=== PATIENT | female | born 1955 | race Caucasian/White ===

== ENCOUNTER → 2016-07-13 | Outpatient (CLI) | payer OTHER ==
--- NOTE | 2016-07-13 13:16 | CTL ---
EXAMINATION TYPE: CT Low Dose Lung DATE OF EXAM ORDERED: 07/13/2016 12:56 PM COMPARISON: None HISTORY: . Lung cancer screening CT DLP: [address] CTDI: 1.42 mGy Automated exposure control for dose reduction was used. SCREENING VISIT: COMPARISON: None TECHNIQUE: Low dose computed tomography scan was performed through the chest at 1 mm thick sections a nd reconstructed images in the coronal plane at [address] DIAGNOSTIC QUALITY: Satisfactory FINDINGS: LUNG NODULES: There are 2 nodules within the right lung. Both measure less than 3 mm. One within the anterior segment right upper lobe and the second within the right lower lobe. LUNGS: Diffuse emphysematous changes are seen. There is mild interlobular septal thickening suggestive of mi ld interstitial lung disease. Mild to moderate bronchiectasis seen. No pleural effusion or pneumothorax. Bilateral pleural-based thickening greater on the right which is stable from the previous CT scan of 12/30/2014. There is evidence of subsegmental linear consolidatio n which may been the basis of scar or chronic atelectasis. Right lower lobe subsegmental atelectasis or infiltrate noted. Abdominal evaluation is nondiagnostic due to artifact. However, a right-sided renal calculus suspecte d measuring 4 mm. The heart is enlarged. Coronary artery calcification noted. IMPRESSION: 1. There are 2 nodules noted both measuring less than 3 mm. Diffuse COPD and areas of chronic atelect asis or scar suspected with a more focal area of consolidation medial aspect right lower lobe correla te clinically for atelectasis versus pneumonia. Chronic pleural based thickening and scarring noted b ilaterally. FOLLOW UP CT CHEST RECOMMENDATION: Follow-up in [address] LUNG RAD: Lung-Rad 3 Probably Benign
== END | disposition home or self-care (01) ==
LOC: RADCTMAIN 12:23
PROVIDERS: ATTEND Nurse Practitioner Women's Health
DX: Z12.2 Encounter for screening for malignant neoplasm of respiratory organs (principal); R91.8 Other nonspecific abnormal finding of lung field; J44.9 Chronic obstructive pulmonary disease, unspecified; J92.9 Pleural plaque without asbestos; J98.4 Other disorders of lung; Z87.891 Personal history of nicotine dependence

== ENCOUNTER 2016-08-05 04:16 | Inpatient (IN) | payer OTHER ==
[2016-08-05] MEDS ORDERED: ALBUTEROL NEBULIZED 2.5 MG/3 ML INHALATION STA (04:36)
[2016-08-05] MEDS ORDERED: LORazepam 2 MG/ML SYRINGE IV STA (04:43)
[2016-08-05 04:55] LABS: Basophils # (A) 0.1 k/uL (0-0.2); Basophils % (A) 0 %; CH 28.8; CHCM 31.2; Eosinophils # (A) 0.3 k/uL (0-0.7); Eosinophils % (A) 2 %; HCT 42.2 % (34.0-46.0); HDW 2.56; HGB 13.1 gm/dL (11.4-16.0); Hypochromasia Slight; Luc # (Auto) 0.41; Luc % (Auto) 3; Lymphocytes # (A) 3.4 k/uL (1.0-4.8); Lymphocytes % (A) 24 %; MCH 28.7 pg (25.0-35.0); MCV 92.7 fL (80.0-100.0); Mean Platelet Volume 6.6; Monocytes # (A) 1.1 k/uL (0-1.0); Monocytes % (A) 8 %; Neutrophils # (A) 8.9 k/uL (1.3-7.7); Neutrophils % (A) 63 %; RBC 4.56 m/uL (3.80-5.40); RDW 14.7 % (11.5-15.5); WBC 14.2 k/uL (3.8-10.6)
--- NOTE | 2016-08-05 04:59 | XR ---
EXAM: XR Chest, 1 View. CLINICAL HISTORY: Reason: dyspnea TECHNIQUE: Frontal view of the chest. COMPARISON: 05/18/16 two-view chest. FINDINGS: Lungs: No consolidation. Pleural spaces: Mild reticular opacities at the periphery of the lung bases, and there may be minimal blunting of one or both costophrenic sulci that may represent trace amount of pleural fluid. Heart: Stable appearance of the cardiomediastinal silhouette. Mediastinum: See above. Bones: Stable. No acute fracture. IMPRESSION: Findings raise the possibility for very early CHF. This could be correlated clinically, and short term follow-up could be obtained to evaluate for clearing.
[2016-08-05 05:11] LABS: Partial Thromboplastin Time 26.8 sec (22.0-30.0); Prothrombin Time 10.4 sec (9.0-12.0)
[2016-08-05 05:17] LABS: Creatine Kinase 199 U/L (30-135)
[2016-08-05 05:19] LABS: ALT 57 U/L (9-52); AST 56 U/L (14-36); Alkaline Phosphatase 96 U/L (38-126); Anion Gap 12 mmol/L; Blood Urea Nitrogen 10 mg/dL (7-17); Calcium 8.5 mg/dL (8.4-10.2); Carbon Dioxide 20 mmol/L (22-30); Chloride 107 mmol/L (98-107); Glucose 127 mg/dL (74-99); Non-African American GFR(MDRD) >60 (>60 ml/min/1.73 sqM); Potassium 4.6 mmol/L (3.5-5.1); Sodium 139 mmol/L (137-145); Total Bilirubin 0.4 mg/dL (0.2-1.3); Total Protein 7.1 g/dL (6.3-8.2)
[2016-08-05 05:30] LABS: Troponin I <0.012 ng/mL (0.000-0.034)
[2016-08-05 05:40] LABS: Creatine Kinase MB 4.6 ng/mL (0.0-2.4)
[2016-08-05] MEDS ORDERED: NITROGLYCERIN OINT 1 INCH/GM PACKET TOPICAL STA (05:54)
[2016-08-05] MEDS ORDERED: FUROSEMIDE 10 MG/ML 4 ML VIAL IV STA (05:54)
--- NOTE | 2016-08-05 05:57 | ED ---
SOB HPI - General Chief Complaint: Shortness of Breath Stated Complaint: FESTUS Time Seen by Provider: 08/05/16 04:36 Source: patient, EMS Mode of arrival: EMS Limitations: physical limitation - History of Present Illness MD Complaint: shortness of breath, cough -: hour(s) Consistency: constant Improves With: nothing Worsens With: nothing Known History Of: COPD, congestive heart failure Associated Symptoms: denies other symptoms Treatments Prior to Arrival: oxygen, NIPPV - Related Data Home Medications Medication Instructions Recorded Confirmed ALPRAZolam [Xanax] 0.5 mg PO HS PRN 06/23/14 09/22/15 Albuterol Sulfate [Proair Hfa] 1 - 2 puff INHALATION Q6HR PRN 06/23/14 09/22/15 Ranitidine HCl 150 mg PO BID PRN 06/23/14 09/22/15 Gabapentin 400 mg PO BID 06/24/14 09/22/15 Hydrocodone/Acetaminophen 10 - 325 mg PO TID PRN 06/24/14 09/22/15 [Hydrocodone/Acetaminophen 10-325] Cyanocobalamin [Vitamin B-12] 4,000 mcg PO DAILY@1200 07/21/14 09/22/15 Multivitamins, Thera [Multivitamin] 1 each PO DAILY 07/21/14 09/22/15 Albuterol Nebulized [Ventolin 1 applic INHALATION QID 10/29/14 09/22/15 Nebulized] Alendronate Sodium [Fosamax] 70 mg PO WE 10/29/14 09/22/15 PARoxetine HCL 60 mg PO DAILY 10/29/14 09/22/15 Primidone [Mysoline] 50 mg PO BID 10/29/14 09/22/15 buPROPion SR [Wellbutrin SR] 150 mg PO DAILY 10/29/14 09/22/15 Furosemide 40 mg PO BID 12/23/14 09/22/15 Aspirin 81 mg PO DAILY 09/17/15 09/17/15 Black Cohosh 40 mg PO DAILY 09/17/15 09/22/15 Ditropan Xl (Unknown Dose) 1 tab PO DAILY 09/17/15 09/22/15 Spironolactone [Aldactone] 12.5 mg PO DAILY 09/17/15 09/22/15 Tiotropium [place] [Spiriva] 18 mcg INHALATION DAILY 09/17/15 09/22/15 Vitamin E 1,000 unit PO DAILY 09/17/15 09/17/15 Previous Rx's Medication Instructions Recorded Budesonide-Formot 160-4.5 Mcg 2 puff INHALATION RT-BID #1 inhaler 06/29/14 [Symbicort 160-4.5 Mcg Inhaler] Atorvastatin [Lipitor] 80 mg PO HS #30 tab 07/18/14 Clopidogrel [Plavix] 75 mg PO DAILY #30 tab 07/18/14 Nitroglycerin Sl Tabs [Nitrostat] 0.4 mg SUBLINGUAL Q5M PRN #25 tab 07/18/14 Allergies Allergy/AdvReac Type Severity Reaction Status Date / Time No Known Allergies Allergy Verified 08/05/16 04:17 Review of Systems ROS Statement: Those systems with pertinent positive or pertinent negative responses have been documented in the HPI. ROS Other: All systems not noted in ROS Statement are negative. Constitutional: Denies: fever, chills Respiratory: Reports: as per HPI, cough, dyspnea Cardiovascular: Denies: chest pain, palpitations, edema Gastrointestinal: Denies: abdominal pain, nausea, vomiting Genitourinary: Denies: dysuria, hematuria Musculoskeletal: Denies: back pain Skin: Denies: rash Neurological: Denies: headache Past Medical History Past Medical History: Coronary Artery Disease (CAD), Cancer, COPD, Hypertension , Myocardial Infarction ([place]) Additional Past Medical History / Comment(s): HX BREAST CA, O2 @2L HS Last Myocardial Infarction Date:: 2014 History of Any Multi-Drug Resistant Organisms: None Reported Past Surgical History: Section, Heart Catheterization With Stent, Orthopedic Surgery Additional Past Surgical History / Comment(s): CARDIAC STENTS X4, WRIST SX X3, D &C, 11-01-14 AORTAGRAM W/RUNOFF, CECILIO ILIAC STENTS Past Anesthesia/Blood Transfusion Reactions: No Reported Reaction Date of Last Stent Placement:: 2014 Past Psychological History: Depression Additional Psychological History / Comment(s): , lives in the family home with her . Used to live in the [place] area but moved here now about 7 years ago. No pets in the home at this point in time. She's an ongoingtobaccosmokerbut is decreased as of late. No history of injection drug use or other recreational drug use is related at this time. She has no experience. No international travel. Smoking Status: Former smoker Past Alcohol Use History: None Reported Additional Past Alcohol Use History / Comment(s): QUIT SMOKING 07/2015, STARTED SMOKING AT AGE 13 (1969) SMOKED UP TO 2PPD Past Drug Use History: None Reported - Past Family History Mother Family Medical History: Diabetes Mellitus Additional Family Medical History / Comment(s): HEART ISSSUES Father Additional Family Medical History / Comment(s): HEMACHROMATOSIS General Exam Limitations: physical limitation General appearance: alert, in distress Head exam: Present: atraumatic, normocephalic Eye exam: Present: normal appearance. Absent: scleral icterus, conjunctival injection ENT exam: Present: normal oropharynx Respiratory exam: Present: respiratory distress, rales. Absent: wheezes, rhonchi, stridor Cardiovascular Exam: Present: normal rhythm, tachycardia, gallop. Absent: systolic murmur, diastolic murmur, rubs GI/Abdominal exam: Present: soft. Absent: distended, tenderness, guarding, rebound, mass Extremities exam: Present: normal inspection, normal capillary refill. Absent: pedal edema, calf tenderness Back exam: Present: normal inspection. Absent: CVA tenderness (R), CVA tenderness (L) Neurological exam: Present: alert Skin exam: Present: warm, dry, intact, normal color. Absent: rash Course Vital Signs 08/05/16 08/05/16 08/05/16 04:17 04:22 04:51 Temperature 97.0 F L Pulse Rate 118 H 90 Respiratory 44 H 30 H Rate Blood Pressure 166/92 O2 Sat by Pulse 97 Oximetry 08/05/16 08/05/16 04:57 06:08 Temperature Pulse Rate 90 89 Respiratory 20 Rate Blood Pressure 131/79 O2 Sat by Pulse 98 Oximetry Medical Decision Making - Lab Data Result diagrams: 08/05/16 04:30 08/05/16 04:30 Lab Results 08/05/16 08/05/16 08/05/16 Range/Units 04:30 04:30 04:30 WBC 14.2 H (3.8-10.6) k/uL RBC 4.56 (3.80-5.40) m/uL Hgb 13.1 (11.4-16.0) gm/dL Hct 42.2 (34.0-46.0) % MCV 92.7 (80.0-100.0) fL MCH 28.7 (25.0-35.0) pg MCHC 31.0 (31.0-37.0) g/dL RDW 14.7 (11.5-15.5) % Plt Count 365 (150-450) k/uL Neutrophils % 63 % Lymphocytes % 24 % Monocytes % 8 % Eosinophils % 2 % Basophils % 0 % Neutrophils # 8.9 H (1.3-7.7) k/uL Lymphocytes # 3.4 (1.0-4.8) k/uL Monocytes # 1.1 H (0-1.0) k/uL Eosinophils # 0.3 (0-0.7) k/uL Basophils # 0.1 (0-0.2) k/uL Hypochromasia Slight PT (9.0-12.0) sec INR (<1.1) APTT (22.0-30.0) sec D-Dimer (<0.60) mg/L FEU Sodium 139 (137-145) mmol/L Potassium 4.6 (3.5-5.1) mmol/L Chloride 107 (98-107) mmol/L Carbon Dioxide 20 L (22-30) mmol/L Anion Gap 12 mmol/L BUN 10 (7-17) mg/dL Creatinine 0.60 (0.52-1.04) mg/dL Est GFR (MDRD) Af Amer >60 (>60 ml/min/1.73 sqM) Est GFR (MDRD) Non-Af >60 (>60 ml/min/1.73 sqM) Glucose 127 H (74-99) mg/dL Calcium 8.5 (8.4-10.2) mg/dL Total Bilirubin 0.4 (0.2-1.3) mg/dL AST 56 H (14-36) U/L ALT 57 H (9-52) U/L Alkaline Phosphatase 96 (38-126) U/L Total Creatine Kinase 199 H (30-135) U/L CK-MB (CK-2) 4.6 H* (0.0-2.4) ng/mL CK-MB (CK-2) Rel Index 2.3 Troponin I <0.012 (0.000-0.034) ng/mL Total Protein 7.1 (6.3-8.2) g/dL Albumin 4.1 (3.5-5.0) g/dL 08/05/16 Range/Units 04:30 WBC (3.8-10.6) k/uL RBC (3.80-5.40) m/uL Hgb (11.4-16.0) gm/dL Hct (34.0-46.0) % MCV (80.0-100.0) fL MCH (25.0-35.0) pg MCHC (31.0-37.0) g/dL RDW (11.5-15.5) % Plt Count (150-450) k/uL Neutrophils % % Lymphocytes % % Monocytes % % Eosinophils % % Basophils % % Neutrophils # (1.3-7.7) k/uL Lymphocytes # (1.0-4.8) k/uL Monocytes # (0-1.0) k/uL Eosinophils # (0-0.7) k/uL Basophils # (0-0.2) k/uL Hypochromasia PT 10.4 (9.0-12.0) sec INR 1.0 (<1.1) APTT 26.8 (22.0-30.0) sec D-Dimer 0.77 H (<0.60) mg/L FEU Sodium (137-145) mmol/L Potassium (3.5-5.1) mmol/L Chloride (98-107) mmol/L Carbon Dioxide (22-30) mmol/L Anion Gap mmol/L BUN (7-17) mg/dL Creatinine (0.52-1.04) mg/dL Est GFR (MDRD) Af Amer (>60 ml/min/1.73 sqM) Est GFR (MDRD) Non-Af (>60 ml/min/1.73 sqM) Glucose (74-99) mg/dL Calcium (8.4-10.2) mg/dL Total Bilirubin (0.2-1.3) mg/dL AST (14-36) U/L ALT (9-52) U/L Alkaline Phosphatase (38-126) U/L Total Creatine Kinase (30-135) U/L CK-MB (CK-2) (0.0-2.4) ng/mL CK-MB (CK-2) Rel Index Troponin I (0.000-0.034) ng/mL Total Protein (6.3-8.2) g/dL Albumin (3.5-5.0) g/dL - EKG Data -: EKG Interpreted by Me EKG shows normal: sinus rhythm (With PVC), intervals (Normal), QRS complexes ( Low voltage QRS), ST-T waves (Normal) Rate: tachycardia (Rate 112 bpm) Interpretation: other (Old anterolateral infarct) Disposition Clinical Impression: COPD (chronic obstructive pulmonary disease), Congestive heart failure Disposition: ADMITTED IP TO THIS [facility] Condition: Poor
[2016-08-05] MEDS ORDERED: ALPRAZolam 0.5 MG TAB PO PRN (06:13)
[2016-08-05] MEDS ORDERED: FAMOTIDINE 20 MG TAB PO PRN (06:13)
[2016-08-05 08:25] LABS: Appearance,Urine Clear (Clear); Bilirubin,Urine Negative (Negative); Glucose,Urine (UA) Negative (Negative); Ketones,Urine Negative (Negative); Leukocyte Esterase,Urine Negative (Negative); Nitrite,Urine Negative (Negative); PH, Urine 5.5 (5.0-8.0); Protein,Urine Trace (Negative); Specific Gravity,Urine 1.005 (1.001-1.035); UA Billing (MACRO vs. MICRO) CHEM; Urobilinogen,Urine <2.0 mg/dL (<2.0)
[2016-08-05] MEDS ORDERED: PRIMIDONE 50 MG TAB PO SCH (09:00)
[2016-08-05] MEDS: ALBUTEROL NEBULIZED 2.5 MG/3 ML INHALATION SCH ×4 (09:04→21:12)
[2016-08-05] MEDS: SYMBICORT 160-4.5 MCG INHALER INHALATION SCH ×2 (09:04→21:12)
[2016-08-05] MEDS: TIOTROPIUM 18 MCG/PUFF INHALER INHALATION SCH (09:07)
--- NOTE | 2016-08-05 09:48 | P.CRDCN ---
History of Present Illness Consult date: 08/05/16 Requesting physician: Duarte Figueredo Jr Consult reason: shortness of breath Chief complaint: Shortness of breath History of present illness: This is a 60-year-old female with known history of coronary artery disease, patient had prior stent placement to the RCA in 2014. Patient also has history of PAD with prior stenting of the right and left external iliac artery, hypertension, hyperlipidemia, nicotine dependence, ischemic cardiomyopathy, severe pulmonary hypertension, she presents to the hospital with symptoms of progressively worsening shortness of breath. Patient had recently been started on Elavil, she had taken for a couple of nights, states that last night her breathing became quite severe and for this reason she came to the emergency room for further evaluation. X-ray on admission revealed findings suspicious for early congestive heart failure. EKG shows a sinus tachycardia with occasional PVC. Lab data, WBC 14.2, hemoglobin 13.1, d-dimer 0.77, potassium 4.6, BUN 10, creatinine 0.6. AST 56, ALT 57, troponin 0.012, BNP level 3670. At the time of my examination this morning, patient is very sleepy, she does arouse but then goes immediately back to sleep while speaking to her. She does state that her breathing has improved since admission to the hospital, denies any chest pain. Past Medical History Past Medical History: Coronary Artery Disease (CAD), Cancer, COPD, GERD/Reflux, Hyperlipidemia, Hypertension, Myocardial Infarction ([place]), Pneumonia, Vascular Disorder Additional Past Medical History / Comment(s): Ischemic cardiomyopathy, celiac's disease, R BREAST CA with surgery/radiation, O2 @2L HS, chronic L wrist pain, osteoporosis in past-pt states no longer on medication for this, sinus problems. Last Myocardial Infarction Date:: 2014 History of Any Multi-Drug Resistant Organisms: None Reported Past Surgical History: Breast Surgery, Section, Heart Catheterization With Stent, Orthopedic Surgery Additional Past Surgical History / Comment(s): R breast lumpectomy, 2001 CARDIAC STENTS X4, 2014 PTCA, WRIST SX X3, D&C, 11-01-14 AORTAGRAM W/RUNOFF, CECILIO ILIAC STENTS Past Anesthesia/Blood Transfusion Reactions: No Reported Reaction Date of Last Stent Placement:: 2001 Past Psychological History: Anxiety, Depression Additional Psychological History / Comment(s): , lives in the family home with her . Used to live in the [place] area but moved here several years ago. No pets in the home at this point in time. She's an ongoing tobacco smoker. No history of injection drug use or other recreational drug use is related at this time. She has no experience. No international travel. Smoking Status: Current every day smoker Past Alcohol Use History: None Reported Additional Past Alcohol Use History / Comment(s): Pt started smoking in 1968 and was up to 2 ppd. She is now down to 15 cigarettes a day. Past Drug Use History: None Reported - Past Family History Mother Family Medical History: Diabetes Mellitus Additional Family Medical History / Comment(s): HEART ISSSUES Father Family Medical History: Blood Disorder Additional Family Medical History / Comment(s): HEMACHROMATOSIS Medications and Allergies Home Medications Medication Instructions Recorded Confirmed Type ALPRAZolam [Xanax] 0.5 mg PO HS PRN 06/23/14 08/05/16 History Gabapentin 400 mg PO BID 06/24/14 08/05/16 History Hydrocodone/Acetaminophen 1 tab PO TID PRN 06/24/14 08/05/16 History [Hydrocodone/Acetaminophen 10-325] Cyanocobalamin [Vitamin B-12] 4,000 mcg PO DAILY@1500 07/21/14 08/05/16 History Multivitamins, Thera [Multivitamin] 1 tab PO DAILY 07/21/14 08/05/16 History Albuterol Nebulized [Ventolin 2.5 mg INHALATION RT-QID 10/29/14 08/05/16 History Nebulized] Alendronate Sodium [Fosamax] 70 mg PO WE 10/29/14 08/05/16 History PARoxetine HCL 60 mg PO DAILY 10/29/14 08/05/16 History Primidone [Mysoline] 50 mg PO BID 10/29/14 08/05/16 History buPROPion SR [Wellbutrin SR] 150 mg PO DAILY 10/29/14 08/05/16 History Aspirin 81 mg PO Q48H 09/17/15 08/05/16 History Spironolactone [Aldactone] 12.5 mg PO DAILY 09/17/15 08/05/16 History Tiotropium [place] [Spiriva] 18 mcg INHALATION RT-DAILY 09/17/15 08/05/16 History Vitamin E 1,000 unit PO DAILY 09/17/15 08/05/16 History Amitriptyline HCl [Elavil] 25 mg PO HS 08/05/16 08/05/16 History Black Cohosh Root [Black Cohosh] 400 mg PO DAILY 08/05/16 08/05/16 History Clopidogrel [Plavix] 75 mg PO Q48H 08/05/16 08/05/16 History Furosemide [Lasix] 20 mg PO DAILY 08/05/16 08/05/16 History Glycopyrrolate/Formoterol Fum 1 puff INHALATION RT-BID 08/05/16 08/05/16 History [Bevespi Aerosphere Inhaler] Latanoprost Ophth [Xalatan 0.005%] 1 drops LEFT EYE HS 08/05/16 08/05/16 History Oxybutynin Xl [Ditropan Xl] 5 mg PO DAILY 08/05/16 08/05/16 History Ranitidine HCl [Zantac] 150 mg PO BID PRN 08/05/16 08/05/16 History Allergies Allergy/AdvReac Type Severity Reaction Status Date / Time No Known Allergies Allergy Verified 08/05/16 08:45 Physical Exam Vitals: Vital Signs Temp Pulse Pulse Resp BP BP Pulse Ox 08/05/16 09:18 94 08/05/16 09:05 96 08/05/16 08:10 97 F L 95 18 115/74 93 L 08/05/16 07:08 97.1 F L 93 20 132/74 93 L 08/05/16 06:08 89 20 131/79 98 PHYSICAL EXAMINATION: HEENT: Head is atraumatic, normocephalic. Pupils equal, round. Neck is supple. There is no elevated jugular venous pressure. HEART EXAMINATION: Heart S1, S2 normal. No murmur or gallop heard. CHEST EXAMINATION: Lungs reveal decreased air exchange throughout with scattered fine wheezes. ABDOMEN: Soft, nontender. Bowel sounds are heard. No organomegaly noted. EXTREMITIES: 1+ peripheral pulses with no evidence of peripheral edema and no calf tenderness noted. NEUROLOGIC [patient is very sleepy, arouses to verbal stimuli. Results 08/05/16 04:30 08/05/16 04:30 Current Medications Generic Name Dose Route Start Last Admin Trade Name Freq PRN Reason Stop Dose Admin Acetaminophen/Hydrocodone Bitart 1 each 08/05/16 06:13 [place] 10 PO TID PRN Pain Albuterol Sulfate 2.5 mg 08/05/16 08:00 08/05/16 09:04 Ventolin Nebulized INHALATION 2.5 mg RT-QID [facility] Administration Alprazolam 0.5 mg 08/05/16 06:13 Xanax PO HS PRN Anxiety Aspirin 81 mg 08/05/16 09:00 Aspirin PO DAILY [facility] Atorvastatin Calcium 80 mg 08/05/16 21:00 Lipitor PO HS AGUILA Budesonide/Formoterol Fumarate 2 puff 08/05/16 08:00 08/05/16 09:04 Symbicort 160-4.5 Mcg Inhaler INHALATION 2 puff RT-BID [facility] Administration Bupropion HCl 150 mg 08/05/16 09:00 Wellbutrin Sr PO DAILY [facility] Clopidogrel Bisulfate 75 mg 08/05/16 09:00 Plavix PO DAILY [facility] Famotidine 20 mg 08/05/16 06:13 Pepcid PO BID PRN Heartburn Furosemide 40 mg 08/05/16 18:00 Lasix IV Q12H [facility] Gabapentin 400 mg 08/05/16 09:00 Neurontin PO BID [facility] Paroxetine HCl 60 mg 08/05/16 09:00 Paxil PO DAILY [facility] Primidone 50 mg 08/05/16 09:00 Mysoline PO BID [facility] Sodium Chloride 10 ml 08/05/16 09:00 Saline Flush IV BID [facility] Spironolactone 12.5 mg 08/05/16 09:00 Aldactone PO DAILY [facility] Tiotropium [place] 1 puff 08/05/16 08:00 08/05/16 09:07 Spiriva INHALATION Not Given RT-DAILY [facility] EKG Interpretations (text) EKG shows a sinus tachycardia with occasional PVC. Assessment and Plan Plan: Assessment and plan #1 symptoms of shortness of breath, possible mild systolic congestive heart failure acute on chronic. Patient is currently on IV Lasix. BNP level 3670, this may be a baseline BNP for this patient. D-dimer 0.77 #2 ischemic cardiomyopathy, most recent echocardiogram with Doppler study was performed in July 2014 which revealed an ejection fraction of 30-35%. #3 pulmonary hypertension #4 COPD # 5 hyperlipidemia #6 hypertension #7 nicotine dependence #8 mild elevation in liver enzymes could be secondary to congestion #9 PAD with prior iliac stenting Plan We will repeat an echocardiogram with Doppler study. We will also request the most is a progress note from the office. Continue IV Lasix for 24 hours, check lytes BUN and creatinine. We will also obtain a CT of the chest to rule out pulmonary embolism. Further recommendations to follow. DNP note has been reviewed, I agree with a documented findings and plan of care. Patient was seen and examined.
[2016-08-05] MEDS ORDERED: RX INFO: IV CONTRAST WAS GIVEN 1 EACH MISC MISCELLANE PRN (09:49)
[2016-08-05 09:58] LABS: ABG Base Excess -0.3 mmol/L; ABG HCO3 23 mmol/L (21-25); ABG PCO2 35 mmHg (35-45); ABG PH 7.44 (7.35-7.45); ABG PO2 73 mmHg (83-108); ABG TCO2 25 mmol/L (19-24)
[2016-08-05] MEDS: CLOPIDOGREL 75 MG TAB PO SCH (10:49)
[2016-08-05] MEDS: buPROPion SR 150 MG TABLET.ER PO SCH (10:49)
[2016-08-05] MEDS: GABAPENTIN 400 MG CAP PO SCH ×2 (10:49→18:45)
[2016-08-05] MEDS: ASPIRIN 81 MG CHEW PO SCH (10:49)
[2016-08-05] MEDS: PARoxetine 20 MG TAB PO SCH (10:49)
[2016-08-05] MEDS: SPIRONOLACTONE 25 MG TAB PO SCH (10:50)
--- NOTE | 2016-08-05 11:23 | P.PN ---
Progress Note - Text This is an addendum to the dictated cardiology consultation. The patient has a known history of coronary artery disease, PND and ischemic cardiomyopathy. She presents with symptoms of dyspnea, fatigue and sleepiness. She was started recently on Ativan for insomnia. She has dyspnea on exertion but unfortunately continues to smoke. She denies any chest discomfort, dizziness or palpitations. She is a prior history of intermittent claudication but that improved after percutaneous revascularization. She has no PND orthopnea or peripheral edema. Her physical examination shows decrease air exchange but no wheezes, she is in sinus mechanism and there is no peripheral edema. Her NT proBNP is elevated but there is no overt signs of congestive heart failure at this time. The patient will receive intravenous diuretics, I will obtain an echocardiogram with Doppler and evaluate the possibility of pulmonary embolism in view of the elevation of her d-dimer and her dyspnea. Depending on her progress further recommendations will be made. Thank you for this consult we will follow with you.
[2016-08-05] MEDS: HYDROcodone/APAP 10-325MG 1 EACH TAB PO PRN ×2 (12:04→18:45)
--- NOTE | 2016-08-05 12:09 | CT ---
EXAMINATION TYPE: CT angio chest DATE OF EXAM: 08/05/2016 11:48 AM COMPARISON: Previous study dated 09/01/2015 and a low-dose CT scan of the lung dated 07/13/2016. HISTORY: CHF EXACERBATION CT DLP: 330 mGycm Automated exposure control for dose reduction was used. CONTRAST: CTA scan of the thorax is performed with IV Contrast, patient injected with 100 ML mL of Omnipaque 35 0, pulmonary embolism protocol. . FINDINGS: There are diffuse emphysematous changes throughout the lungs. There is chronic atelectatic change in the right middle lobe. There is also some chronic atelectasis in the posterior basal segmen t of the right lower lobe. No definite pulmonary nodules are seen on today's examination. There is so me scarring in the left lingula. There is no significant axillary, mediastinal, internal mammary or hilar adenopathy. There is no pleu ral or pericardial fluid. The heart is upper limits of normal in size. The root of the aorta is dilated measuring 3.8 cm. The remainder the thoracic aorta is normal in bobby thomas. There is no evidence of dissection. There is no evidence of pulmonary embolus. There is increased soft tissue in the subcarinal location. I could not exclude adenopathy in this loc ation. This was present as far back as 2014. There is a stable, 7.7 mm hypoattenuating lesion in the posterior segment of the right lobe of the li madalyn. This may represent a small hemangioma. Visualized portions of the upper abdomen are otherwise un remarkable. No osseous lesion is seen. IMPRESSION: 1. THIS EXAMINATION IS NEGATIVE FOR PULMONARY EMBOLUS. 2. DIFFUSE EMPHYSEMATOUS CHANGE. 3. CHRONIC ATELECTASIS DESCRIBED. 4. INCREASED SOFT TISSUE IN THE SUBCARINAL REGION WHICH IS STABLE BACK TO 2014. IT WOULD BE DIFFICULT TO EXCLUDE ADENOPATHY IN THIS LOCATION. 5. MILD ANEURYSMAL DILATATION OF THE ROOT OF THE AORTA. 6. STABLE 7.7 MM LESION WITHIN THE DOME OF THE LIVER. THIS MAY REPRESENT A SMALL HEMANGIOMA. THIS CAN BE CONFIRMED WITH ULTRASOUND OR A DEDICATED CT SCAN OF THE ABDOMEN.
[2016-08-05 13:08] LABS: Troponin I <0.012 ng/mL (0.000-0.034)
[2016-08-05 13:13] LABS: Creatine Kinase MB 4.4 ng/mL (0.0-2.4)
--- NOTE | 2016-08-05 13:55 | P.CNPUL ---
History of Present Illness Consult date: 08/05/16 Reason for consult: dyspnea, COPD History of present illness: 60-year-old female patient with known history of advanced oxygen-dependent COPD , maintained on a combination of Spiriva and Symbicort and oxygen on outpatient basis, along with known history of coronary artery disease with previous PCI and stenting of the RCA in 2015, congestion heart failure and peripheral vascular disease along with hypertension and hyperlipidemia and she is also known to have significant degree of secondary pulmonary hypertension based on a previous echocardiogram. The patient is a chronic smoker and smokes around half to one pack of cigarettes on a daily basis. Over the past week or so the patient has been expressing progressive increased shortness of breath. She had dyspnea cough chest tightness and wheezing typically of COPD exacerbation. No orthopnea. No chest pain. No pleurisy. No hemoptysis. No swelling in the lower extremities. The patient was quite short of breath and yesterday she woke up and she got to point where she was unable to speak up. This is. At that point she came into the hospital for further evaluation and management. Note that her d-dimer was negative. Her troponin was at 0.012 and the proBNP level was at 3670. She is clinically feeling better as the patient was injected with a combination of bronchodilators and steroids. Chest x-ray shows no evidence of an acute pneumonia. There may be some early signs of heart failure. There is no massive pulmonary edema or pleural effusions. Review of Systems For review of system was done and the positive findings are almost above in history of present illness Past Medical History Past Medical History: Coronary Artery Disease (CAD), Cancer, COPD, GERD/Reflux, Hyperlipidemia, Hypertension, Myocardial Infarction ([place]), Pneumonia, Vascular Disorder Additional Past Medical History / Comment(s): COPD, chronic hypoxic respiratory failure, coronary artery disease with previous coronary intervention and PCI and stenting of RCA, CHF with significant degree of secondary pulmonary hypertension, ischemic cardiac myopathy, celiac disease, breast cancer involving the right breast with previous lumpectomy followed by radiation therapy, osteoporosis, hypertension, hyperlipidemia, peripheral vascular disease Last Myocardial Infarction Date:: 2014 History of Any Multi-Drug Resistant Organisms: None Reported Past Surgical History: Breast Surgery, Section, Heart Catheterization With Stent, Orthopedic Surgery Additional Past Surgical History / Comment(s): R breast lumpectomy, 2002 CARDIAC STENTS X4, 2015 PTCA, WRIST SX X3, D&C, 11-01-14 AORTAGRAM W/RUNOFF, CECILIO ILIAC STENTS Past Anesthesia/Blood Transfusion Reactions: No Reported Reaction Date of Last Stent Placement:: 2001 Past Psychological History: Anxiety, Depression Additional Psychological History / Comment(s): , lives in the family home with her . Used to live in the [place] area but moved here several years ago. No pets in the home at this point in time. She's an ongoing tobacco smoker. No history of injection drug use or other recreational drug use is related at this time. She has no experience. No international travel. Smoking Status: Current every day smoker Past Alcohol Use History: None Reported Additional Past Alcohol Use History / Comment(s): Pt started smoking in 1968 and was up to 2 ppd. She is now down to 15 cigarettes a day. Past Drug Use History: None Reported - Past Family History Mother Family Medical History: Diabetes Mellitus Additional Family Medical History / Comment(s): HEART ISSSUES Father Family Medical History: Blood Disorder Additional Family Medical History / Comment(s): HEMACHROMATOSIS Medications and Allergies Home Medications Medication Instructions Recorded Confirmed Type ALPRAZolam [Xanax] 0.5 mg PO HS PRN 06/23/14 08/05/16 History Gabapentin 400 mg PO BID 06/24/14 08/05/16 History Hydrocodone/Acetaminophen 1 tab PO TID PRN 06/24/14 08/05/16 History [Hydrocodone/Acetaminophen 10-325] Cyanocobalamin [Vitamin B-12] 4,000 mcg PO DAILY@1500 07/21/14 08/05/16 History Multivitamins, Thera [Multivitamin] 1 tab PO DAILY 07/21/14 08/05/16 History Albuterol Nebulized [Ventolin 2.5 mg INHALATION RT-QID 10/29/14 08/05/16 History Nebulized] Alendronate Sodium [Fosamax] 70 mg PO WE 10/29/14 08/05/16 History PARoxetine HCL 60 mg PO DAILY 10/29/14 08/05/16 History Primidone [Mysoline] 50 mg PO BID 10/29/14 08/05/16 History buPROPion SR [Wellbutrin SR] 150 mg PO DAILY 10/29/14 08/05/16 History Aspirin 81 mg PO Q48H 09/17/15 08/05/16 History Spironolactone [Aldactone] 12.5 mg PO DAILY 09/17/15 08/05/16 History Tiotropium [place] [Spiriva] 18 mcg INHALATION RT-DAILY 09/17/15 08/05/16 History Vitamin E 1,000 unit PO DAILY 09/17/15 08/05/16 History Amitriptyline HCl [Elavil] 25 mg PO HS 08/05/16 08/05/16 History Black Cohosh Root [Black Cohosh] 400 mg PO DAILY 08/05/16 08/05/16 History Clopidogrel [Plavix] 75 mg PO Q48H 08/05/16 08/05/16 History Furosemide [Lasix] 20 mg PO DAILY 08/05/16 08/05/16 History Glycopyrrolate/Formoterol Fum 1 puff INHALATION RT-BID 08/05/16 08/05/16 History [Bevespi Aerosphere Inhaler] Latanoprost Ophth [Xalatan 0.005%] 1 drops LEFT EYE HS 08/05/16 08/05/16 History Oxybutynin Xl [Ditropan Xl] 5 mg PO DAILY 08/05/16 08/05/16 History Ranitidine HCl [Zantac] 150 mg PO BID PRN 08/05/16 08/05/16 History Allergies Allergy/AdvReac Type Severity Reaction Status Date / Time No Known Allergies Allergy Verified 08/05/16 08:45 Physical Exam Vitals: Vital Signs Temp Pulse Pulse Resp BP BP Pulse Ox 08/05/16 12:04 92 16 112/73 97 08/05/16 11:57 92 08/05/16 11:53 92 08/05/16 09:18 94 08/05/16 09:05 96 08/05/16 08:10 97 F L 95 18 115/74 93 L 08/05/16 07:08 97.1 F L 93 20 132/74 93 L 08/05/16 06:08 89 20 131/79 98 Intake and Output 08/04/16 08/05/16 08/05/16 22:59 06:59 14:59 Intake Total 200 Balance 200 Intake: Oral 200 Thin and frail, and mild degree of respiratory distress, able to speak of. This is and she is not using it and was not breathing.Head exam was generally normal. There was no scleral icterus or corneal arcus. Mucous membranes were moist.Neck was supple and without jugular venous distension, thyromegaly, or carotid bruits. Carotids were easily palpable bilaterally. There was no adenopathy. Lung sounds are diminished and there is prolongation of the expiratory phase of breathing and scattered expiratory wheezes throughout the lung hastings bilaterally.Cardiac exam revealed the PMI to be normally situated and sized. The rhythm was regular and no extrasystoles were noted during several minutes of auscultation. The first and second heart sounds were normal and physiologic splitting of the second heart sound was noted. There were no murmurs, rubs, clicks, or gallops.Abdominal exam revealed normal bowel sounds. The abdomen was soft, non-tender, and without masses, organomegaly, or appreciable enlargement of the abdominal aorta.Examination of the extremities revealed easily palpable radial, femoral and pedal pulses. There was no cyanosis , clubbing or edema. Results - Laboratory Findings CBC and BMP: 08/05/16 04:30 08/05/16 04:30 ABG ABG pH 7.44 (7.35-7.45) 08/05/16 09:53 ABG pCO2 35 mmHg (35-45) 08/05/16 09:53 ABG pO2 73 mmHg (83-108) L 08/05/16 09:53 ABG O2 Saturation 95.0 % (94-97) 08/05/16 09:53 PT/INR, D-dimer PT 10.4 sec (9.0-12.0) 08/05/16 04:30 INR 1.0 (<1.1) 08/05/16 04:30 D-Dimer 0.77 mg/L FEU (<0.60) H 08/05/16 04:30 Abnormal lab findings: Abnormal Labs 08/05/16 08/05/16 08/05/16 06:47 09:53 11:43 ABG pO2 73 L ABG Total CO2 25 H CK-MB (CK-2) 4.4 H* Urine Protein Trace H - Diagnostic Findings Chest x-ray: image reviewed Assessment and Plan Plan: Assessment 1 acute COPD exacerbation. No evidence of any pneumonia. Nicotine addiction/ smoking and seems to be on the main risk factors for her recurrent COPD exacerbation. Clinically the patient is improving with the current treatment. 2 CHF with impaired LV function and severe pulmonary hypertension 3 coronary artery disease with previous PCI and coronary intervention and stenting 4 hypertension 5 peripheral vascular disease 6 breast cancer with a previous lumpectomy of the right breast followed by radiation therapy 7 chronic hypoxic respiratory failure maintained on oxygen 2 L/m visit cannula 8 osteoporosis 9 hyperlipidemia 10 smoking Plan Smoking cessation counseling was done. The patient will be placed on a combination of DuoNeb nonetheless she was around the clock, IV Solu-Medrol, restart the patient on a combination of Symbicort and Spiriva. IV Lasix 40 mg every 12 hours for the next 24 hours. Cardiology evaluation. We'll continue to follow and make further recommendations based on her progress.
[2016-08-05 15:06] VITALS: BMI 19.7
--- NOTE | 2016-08-05 15:10 | P.HPIM ---
History of Present Illness H&P Date: 08/05/16 Chief Complaint: Shortness of breath, cough Patient is a 60-year-old female, patient of Dr. Figueredo in the outpatient setting with medical history significant for COPD, systolic congestive heart failure, ischemic cardiomyopathy and LV dysfunction, chronic hypercapnic respiratory failure with home O2, chronic microcytic anemia, coronary artery disease, myocardial infarction with stent placements, hypertension, breast cancer, severe pulmonary hypertension, and ongoing nicotine dependence. Patient presented to the emergency department with complaints of shortness of breath and cough. Patient is lethargic and a poor historian and most of information is taken from chart. Chest x-ray on admission with evidence of possible early CHF without any consolidation. CTA angiogram negative for pulmonary embolism. Incidental finding of stable 7.7 mm lesion within dome of liver possible small hemangioma. The emergency department , patient had evidence of acute respiratory failure and was placed on CPAP. Patient was transferred to the selective care unit with consult to cardiology and pulmonology service. Upon examination, patient is quite lethargic and falls asleep during conversation. Patient reports improvement in breathing, denies chest pain. Past Medical History Past Medical History: Coronary Artery Disease (CAD), Cancer, COPD, GERD/Reflux, Hyperlipidemia, Hypertension, Myocardial Infarction ([place]), Pneumonia, Vascular Disorder Additional Past Medical History / Comment(s): COPD, chronic hypoxic respiratory failure, coronary artery disease with previous coronary intervention and PCI and stenting of RCA, CHF with significant degree of secondary pulmonary hypertension, ischemic cardiac myopathy, celiac disease, breast cancer involving the right breast with previous lumpectomy followed by radiation therapy, osteoporosis, hypertension, hyperlipidemia, peripheral vascular disease Last Myocardial Infarction Date:: 2014 History of Any Multi-Drug Resistant Organisms: None Reported Past Surgical History: Breast Surgery, Section, Heart Catheterization With Stent, Orthopedic Surgery Additional Past Surgical History / Comment(s): R breast lumpectomy, 2001 CARDIAC STENTS X4, 2015 PTCA, WRIST SX X3, D&C, 11-01-14 AORTAGRAM W/RUNOFF, CECILIO ILIAC STENTS Past Anesthesia/Blood Transfusion Reactions: No Reported Reaction Date of Last Stent Placement:: 2001 Past Psychological History: Anxiety, Depression Additional Psychological History / Comment(s): , lives in the family home with her . Used to live in the [place] area but moved here several years ago. No pets in the home at this point in time. She's an ongoing tobacco smoker. No history of injection drug use or other recreational drug use is related at this time. She has no experience. No international travel. Smoking Status: Current every day smoker Past Alcohol Use History: None Reported Additional Past Alcohol Use History / Comment(s): Pt started smoking in 1968 and was up to 2 ppd. She is now down to 15 cigarettes a day. Past Drug Use History: None Reported - Past Family History Mother Family Medical History: Diabetes Mellitus Additional Family Medical History / Comment(s): HEART ISSSUES Father Family Medical History: Blood Disorder Additional Family Medical History / Comment(s): HEMACHROMATOSIS Medications and Allergies Home Medications Medication Instructions Recorded Confirmed Type ALPRAZolam [Xanax] 0.5 mg PO HS PRN 06/23/14 08/05/16 History Gabapentin 400 mg PO BID 06/24/14 08/05/16 History Hydrocodone/Acetaminophen 1 tab PO TID PRN 06/24/14 08/05/16 History [Hydrocodone/Acetaminophen 10-325] Cyanocobalamin [Vitamin B-12] 4,000 mcg PO DAILY@1500 07/21/14 08/05/16 History Multivitamins, Thera [Multivitamin] 1 tab PO DAILY 07/21/14 08/05/16 History Albuterol Nebulized [Ventolin 2.5 mg INHALATION RT-QID 10/29/14 08/05/16 History Nebulized] Alendronate Sodium [Fosamax] 70 mg PO WE 10/29/14 08/05/16 History PARoxetine HCL 60 mg PO DAILY 10/29/14 08/05/16 History Primidone [Mysoline] 50 mg PO BID 10/29/14 08/05/16 History buPROPion SR [Wellbutrin SR] 150 mg PO DAILY 10/29/14 08/05/16 History Aspirin 81 mg PO Q48H 09/17/15 08/05/16 History Spironolactone [Aldactone] 12.5 mg PO DAILY 09/17/15 08/05/16 History Tiotropium [place] [Spiriva] 18 mcg INHALATION RT-DAILY 09/17/15 08/05/16 History Vitamin E 1,000 unit PO DAILY 09/17/15 08/05/16 History Amitriptyline HCl [Elavil] 25 mg PO HS 08/05/16 08/05/16 History Black Cohosh Root [Black Cohosh] 400 mg PO DAILY 08/05/16 08/05/16 History Clopidogrel [Plavix] 75 mg PO Q48H 08/05/16 08/05/16 History Furosemide [Lasix] 20 mg PO DAILY 08/05/16 08/05/16 History Glycopyrrolate/Formoterol Fum 1 puff INHALATION RT-BID 08/05/16 08/05/16 History [Bevespi Aerosphere Inhaler] Latanoprost Ophth [Xalatan 0.005%] 1 drops LEFT EYE HS 08/05/16 08/05/16 History Oxybutynin Xl [Ditropan Xl] 5 mg PO DAILY 08/05/16 08/05/16 History Ranitidine HCl [Zantac] 150 mg PO BID PRN 08/05/16 08/05/16 History Allergies Allergy/AdvReac Type Severity Reaction Status Date / Time No Known Allergies Allergy Verified 08/05/16 08:45 Physical Exam Vitals: Vital Signs Temp Pulse Pulse Resp BP BP Pulse Ox 08/05/16 12:04 92 16 112/73 97 08/05/16 11:57 92 08/05/16 11:53 92 08/05/16 09:18 94 08/05/16 09:05 96 08/05/16 08:10 97 F L 95 18 115/74 93 L 08/05/16 07:08 97.1 F L 93 20 132/74 93 L 08/05/16 06:08 89 20 131/79 98 Intake and Output 08/04/16 08/05/16 08/05/16 22:59 06:59 14:59 Intake Total 200 Balance 200 Intake: Oral 200 GENERAL: Pt lethargic, arousable to verbal stimuli but drifts off to sleep when not stimulated, appears in no acute distress. HEAD: Atraumatic, normocephalic. EYES: Pupils equal and round. Sclera anicteric, conjunctiva are normal. ENT: Moist mucous membranes. NECK:Supple without lymphadenopathy or JVD. LUNGS: Breath sounds diminished with faint expiratory wheezes. HEART: Heart S1, S2, no S3 or S4. Regular rate and rhythm. No murmurs, rubs or gallops. ABDOMEN: Soft, nontender, nondistended, normoactive bowel sounds. EXTREMITIES: 1+ peripheral pulses. No edema. No calf tenderness. NEUROLOGICAL: Pt lethargic, arouses to verbal stimuli. PSYCH: Calm. SKIN: Warm, dry, intact. Results CBC & Chem 7: 08/05/16 04:30 08/05/16 04:30 Labs: Abnormal Lab Results - Last 24 Hours (Table) 08/05/16 08/05/16 08/05/16 Range/Units 06:47 09:53 11:43 ABG pO2 73 L (83-108) mmHg ABG Total CO2 25 H (19-24) mmol/L CK-MB (CK-2) 4.4 H* (0.0-2.4) ng/mL Urine Protein Trace H (Negative) Chest x-ray: report reviewed CT scan - chest: report reviewed Thrombosis Risk Factor Assmnt - DVT/VTE Prophylaxis DVT/VTE Prophylaxis: Pharmacologic Prophylaxis ordered, Mechanical Prophylaxis ordered - Choose All That Apply Any of the Below Risk Factors Present?: Yes Each Factor Represents 1 point: Abnormal pulmonary function (COPD), Heart failure (<1month) Other Risk Factors: Yes Each Risk Factor Represents 2 Points: Age 61-74 years, Malignancy Other congenital or acquired thrombophilia - If yes, enter type in comment: No Thrombosis Risk Factor Assessment Total Risk Factor Score: 6 Thrombosis Risk Factor Assessment Level: High Risk Assessment and Plan Plan: Impression: 1. Acute respiratory failure, present on admission, suspect secondary to possible acute congestive heart failure and exacerbation of COPD. Cardiology and pulmonology is following. Continue supplemental oxygen, nebulized updraft treatments, Pulmicort, and Spiriva 2. Acute metabolic encephalopathy, possible toxic from IV Ativan. Continue to monitor patient. Will hold Elavil. 3. Coronary artery disease with previous stent placements. Continue aspirin and Plavix. 4. GERD. Continue Pepcid. 5. Hyperlipidemia. Continue Lipitor. 6. Hypertension. 7. Peripheral vascular disease. 8. Chronic hypoxic respiratory failure, patient on 2 L of oxygen around the clock at home. 9. Severe pulmonary hypertension. 10. Chronic systolic heart failure. Continue Lasix. 11. History of right breast cancer with previous lobectomy followed by radiation therapy. 12. Osteoporosis. Resume Fosamax in the outpatient setting. 13. Anxiety and depression. Continue Wellbutrin and Paxil. 14. Nicotine dependence. Smoking cessation encouraged. 15. History of peripheral arterial disease with prior stenting of the right and left external iliac artery. 16. Chronic pain syndrome. Continue [place] 10. 17. Anemia of chronic disease. Continue vitamin B12. 18. Left eye glaucoma. Continue eyedrops. 19. DVT prophylaxis. Continue heparin subcu. 20. GI prophylaxis. Continue Pepcid. 21. Repeat CBC and BMP in a.m. The above impression and plan have been discussed and directed by Dr. Figueredo. Vel SIMON acting as scribe for Dr. Figueredo.
[2016-08-05] MEDS ORDERED: VARENICLINE 0.5 MG TAB PO SCH (16:00)
[2016-08-05] MEDS: PRIMIDONE 50 MG TAB PO SCH (16:07)
[2016-08-05] MEDS: CYANOCOBALAMIN 500 MCG TAB PO SCH (16:08)
[2016-08-05] MEDS: METOPROLOL SUCCINATE (ER) 25 MG TAB.ER.24H PO SCH (16:09)
[2016-08-05 17:23] LABS: Troponin I <0.012 ng/mL (0.000-0.034)
[2016-08-05 17:26] LABS: Creatine Kinase MB 3.7 ng/mL (0.0-2.4)
[2016-08-05] MEDS: FUROSEMIDE 10 MG/ML 4 ML VIAL IV SCH (18:45)
[2016-08-05] MEDS: FAMOTIDINE 20 MG TAB PO SCH (20:32)
[2016-08-05] MEDS: HEPARIN SODIUM,PORCINE 5,000 UNIT/ML 1 ML VIAL SQ SCH (20:35)
[2016-08-05] MEDS ORDERED: AMITRIPTYLINE HCL 25 MG TAB PO SCH (21:00)
[2016-08-05] MEDS ORDERED: ATORVASTATIN 80 MG TAB PO SCH (21:00)
[2016-08-05] MEDS ORDERED: LATANOPROST 0.005% OPHTH DROPS 2.5 ML BTL LEFT EYE SCH (21:00)
[2016-08-06] MEDS: HYDROcodone/APAP 10-325MG 1 EACH TAB PO PRN ×2 (04:06→13:31)
[2016-08-06] MEDS: FUROSEMIDE 10 MG/ML 4 ML VIAL IV SCH (05:25)
[2016-08-06] MEDS: PRIMIDONE 50 MG TAB PO SCH ×2 (05:29→16:07)
[2016-08-06] MEDS ORDERED: ASPIRIN 325 MG TAB PO SCH (06:07)
[2016-08-06 06:55] LABS: Basophils % (A) 0 %; CH 29.2; CHCM 32.6; Eosinophils # (A) 0.2 k/uL (0-0.7); Eosinophils % (A) 2 %; HCT 36.2 % (34.0-46.0); HDW 2.69; HGB 11.9 gm/dL (11.4-16.0); Luc # (Auto) 0.32; Luc % (Auto) 3; Lymphocytes # (A) 2.3 k/uL (1.0-4.8); Lymphocytes % (A) 18 %; MCH 29.7 pg (25.0-35.0); MCHC 32.9 g/dL (31.0-37.0); MCV 90.2 fL (80.0-100.0); Mean Platelet Volume 7.4; Monocytes # (A) 0.9 k/uL (0-1.0); Monocytes % (A) 7 %; Neutrophils # (A) 8.8 k/uL (1.3-7.7); Neutrophils % (A) 70 %; RBC 4.01 m/uL (3.80-5.40); RDW 14.8 % (11.5-15.5); WBC 12.5 k/uL (3.8-10.6); WBC (Perox) 13.66
[2016-08-06 07:07] LABS: Anion Gap 11 mmol/L; Blood Urea Nitrogen 16 mg/dL (7-17); Calcium 9.1 mg/dL (8.4-10.2); Carbon Dioxide 28 mmol/L (22-30); Chloride 99 mmol/L (98-107); Glucose 110 mg/dL (74-99); Non-African American GFR(MDRD) >60 (>60 ml/min/1.73 sqM); Potassium 3.7 mmol/L (3.5-5.1); Sodium 138 mmol/L (137-145)
[2016-08-06] MEDS: SYMBICORT 160-4.5 MCG INHALER INHALATION SCH (08:26)
[2016-08-06] MEDS: ALBUTEROL NEBULIZED 2.5 MG/3 ML INHALATION SCH ×3 (08:26→15:10)
[2016-08-06] MEDS ORDERED: VITAMIN E (DL,TOCOPHERYL ACET) 400 UNIT CAP PO SCH (09:00)
[2016-08-06] MEDS ORDERED: OXYBUTYNIN XL 5 MG TAB.ER.24 PO SCH (09:00)
[2016-08-06 09:07] VITALS: TEMP 97.4
[2016-08-06] MEDS: buPROPion SR 150 MG TABLET.ER PO SCH (10:14)
[2016-08-06] MEDS: ASPIRIN 81 MG CHEW PO SCH (10:14)
[2016-08-06] MEDS: PARoxetine 20 MG TAB PO SCH (10:14)
[2016-08-06] MEDS: METOPROLOL SUCCINATE (ER) 25 MG TAB.ER.24H PO SCH (10:14)
[2016-08-06] MEDS: GABAPENTIN 400 MG CAP PO SCH (10:14)
[2016-08-06] MEDS: CLOPIDOGREL 75 MG TAB PO SCH (10:14)
[2016-08-06] MEDS: FAMOTIDINE 20 MG TAB PO SCH ×2 (10:14→10:21)
[2016-08-06] MEDS: HEPARIN SODIUM,PORCINE 5,000 UNIT/ML 1 ML VIAL SQ SCH (10:15)
[2016-08-06] MEDS ORDERED: VARENICLINE 0.5 MG TAB PO SCH (10:15)
[2016-08-06] MEDS: SPIRONOLACTONE 25 MG TAB PO SCH (10:15)
--- NOTE | 2016-08-06 10:30 | ECHOF ---
Referral Reason:ICM MEASUREMENTS -------- HEIGHT: 157.5 cm WEIGHT: 49.0 kg BP: IVSd: 0.9 cm (0.6 - 1.1) LVIDd: 4.9 cm (3.9 - 5.3) LVPWd: 1.1 cm (0.6 - 1.1) IVSs: 1.2 cm LVIDs: 4.2 cm LVPWs: 1.3 cm LA Diam: 3.1 cm (2.7 - 3.8) LAESV Index (A-L): 32.75 ml/m MV EXCURSION: 23.384 mm (> 18.000) MV EF SLOPE: 88 mm/s (70 - 150) EPSS: 1.4 cm MV E Ricki: 0.69 m/s MV DecT: 296 ms MV A Ricki: 0.71 m/s MV E/A Ratio: 0.97 RAP: 5.00 mmHg RVSP: 45.89 mmHg FINDINGS -------- Sinus rhythm. This was a technically adequate study. There is mild concentric left ventricular hypertrophy. Overall left ventricular systolic function is mild-moderately impaired with, an EF between 40 - 45 %. Inferior Hypokinesis Septal Hypokinesis The right ventricle is normal in size. LA is moderately dilated 34-39 ml/m2 The right atrial size is normal. There is mild aortic valve sclerosis. There is no evidence of aortic regurgitation. Mild mitral annular calcification present. Moderate mitral regurgitation is present. Mild tricuspid regurgitation present. There is moderate pulmonary hypertension. The right ventricular systolic pressure, as measured by Doppler, is 45.89mmHg. There is no pulmonic regurgitation present. The aortic root size is normal. There is no pericardial effusion. CONCLUSIONS -------- 1. There is mild concentric left ventricular hypertrophy. 2. The right ventricular systolic pressure, as measured by Doppler, is 45.89mmHg. 3. Inferior Hypokinesis 4. Septal Hypokinesis 5. LA is moderately dilated 34-39 ml/m2 6. There is mild aortic valve sclerosis. 7. Mild mitral annular calcification present. 8. Moderate mitral regurgitation is present. 9. Mild tricuspid regurgitation present. 10. There is moderate pulmonary hypertension. SENIOR OFFICE SUPPORT ASSISTANT SOSA: Alaina Frost RDCS
[2016-08-06] MEDS ORDERED: Potassium Replacement Protocol 1 EACH MISC MISCELLANE PRN (11:34)
[2016-08-06] MEDS: TIOTROPIUM 18 MCG/PUFF INHALER INHALATION SCH (11:40)
--- NOTE | 2016-08-06 11:44 | P.PN ---
Subjective This is 60-year-old female with a history of coronary artery disease, PhD, hypertension, hyperlipidemia, nicotine dependence, ischemic cardiomyopathy , severe pulmonary hypertension and follows with Dr. Jcakson in the office. She presented to the hospital with symptoms of progressively worsening shortness of breath. Patient had recently been started on Elavil she had taken for a couple of nights, states that the night of her admission her breathing became quite severe and progressive reason she called EMS. CXR on Admission revealed findings suspicious for early congestive heart failure and her BNP was 3670. Upon examination today, patient is resting comfortably in bed she is quite sleepy however due to eating started on Xanax. She does say she is feeling quite a bit better and her breathing has improved significantly. She denies complaints of chest discomfort and has had no palpitations. She did have a run of nonsustained VT yesterday, 24 beats and was started on Toprol-XL 25 mg daily. This morning she had a run of 9, she was asymptomatic. Objective - Vital Signs Vital signs: Vital Signs Temp 97.4 F L 08/06/16 09:00 Pulse 75 08/06/16 09:00 Resp 18 08/06/16 09:00 BP 101/59 08/06/16 09:00 Pulse Ox 96 08/06/16 09:00 Intake & Output 08/05/16 08/06/16 08/06/16 18:59 06:59 18:59 Intake Total 200 240 Output Total 950 1650 Balance -750 -1410 Weight 48.988 kg 47.9 kg Intake: Oral 200 240 Output: Urine 950 1650 Other: # Voids 3 1 - Exam PHYSICAL EXAMINATION: HEENT: Head is atraumatic, normocephalic. Pupils equal, round. Neck is supple. There is no elevated jugular venous pressure. HEART EXAMINATION: Heart sounds regular, S1 and S2 normal. No murmur or gallop heard. CHEST EXAMINATION: Lungs reveal diminished air entry throughout. No chest wall tenderness is noted on palpation or with deep breathing. ABDOMEN: Soft, nontender. Bowel sounds are heard. No organomegaly noted. EXTREMITIES: 1+ peripheral pulses with no evidence of peripheral edema and no calf tenderness noted. NEUROLOGIC patient is awake, somewhat drowsy and oriented x3. . - Labs CBC & Chem 7: 08/06/16 06:35 08/06/16 06:32 Labs: Abnormal Lab Results - Last 24 Hours (Table) 08/05/16 08/05/16 08/06/16 Range/Units 11:43 16:20 06:32 WBC (3.8-10.6) k/uL Neutrophils # (1.3-7.7) k/uL Glucose 110 H (74-99) mg/dL CK-MB (CK-2) 4.4 H* 3.7 H* (0.0-2.4) ng/mL 08/06/16 Range/Units 06:35 WBC 12.5 H (3.8-10.6) k/uL Neutrophils # 8.8 H (1.3-7.7) k/uL Glucose (74-99) mg/dL CK-MB (CK-2) (0.0-2.4) ng/mL Assessment and Plan Plan: Assessment and plan #1 symptoms of shortness of breath, possible mild systolic congestive heart failure acute on chronic #2 ischemic cardiomyopathy #3 pulmonary hypertension #4 COPD #5 hyperlipidemia #6 hypertension #7 mild elevation of liver enzymes could be secondary to congestion #8 PAD with prior iliac stenting From cardiology standpoint, we will increase Toprol XL to 25 mg by mouth twice a day. We will discontinue IV Lasix and start the patient on Lasix 40 mg by mouth daily. The patient up and ambulating and if she is stable and feeling well from our perspective she may be discharged home later today. THROUGH OPERATOR note has been reviewed, I agree with a documented findings and plan of care. Patient was seen and examined.
[2016-08-06] MEDS ORDERED: POTASSIUM CHLORIDE ER 20 MEQ TAB.ER PO SCH (12:00)
[2016-08-06] MEDS ORDERED: MULTIVITAMINS, THERA 1 EACH TAB PO SCH (12:00)
--- NOTE | 2016-08-06 12:34 | P.DS ---
Providers Date of admission: 08/05/16 06:05 Expected date of discharge: 08/06/16 Attending physician: Duarte Figueredo Consults: 08/05/16 08:17 Consult Physician Urgent Consulting Provider: Jessica Cardoso Consult Reason/Comments: COPD Do you want consulting provider notified?: Yes Primary care physician: [facility] Course: Patient is a 60-year-old female, patient of Dr. Figueredo in the outpatient setting with medical history significant for COPD, ischemic cardiomyopathy and LV dysfunction, chronic hypoxic respiratory failure with home O2, coronary artery disease, myocardial infarction with stent placements, hypertension, breast cancer, severe pulmonary hypertension, PAD with prior iliac stenting, and ongoing nicotine dependence. Patient presented to the emergency department with complaints of shortness of breath and cough. Chest x- ray on admission with evidence of possible early CHF without any consolidation. BNP was 3670. CTA angiogram negative for pulmonary embolism. Incidental finding of stable 7.7 mm lesion within dome of liver possible small hemangioma. In the emergency department, patient had evidence of acute respiratory failure and was placed on CPAP. Patient was transferred to the selective care unit with consult to cardiology and pulmonology service. Patient was started on IV diuretics, bronchodilators and steroids. Patient did have a few runs of nonsustained ventricular tachycardia during her hospital stay and was started on Toprol-XL 25 mg twice a day, patient remained asymptomatic during these episodes. Patient improved and was felt stable for discharge to home with close follow-up in the outpatient setting. Discharge diagnoses: 1. Acute respiratory failure, present on admission, suspect secondary to possible acute congestive heart failure and exacerbation of COPD. 2. Acute metabolic encephalopathy, possible toxic from IV Ativan. 3. Coronary artery disease with previous stent placements. 4. GERD. 5. Hyperlipidemia. 6. Hypertension. 7. Peripheral arterial disease with prior stenting of the right and left external iliac artery. 8. Chronic hypoxic respiratory failure, patient on 2 L of oxygen around the clock at home. 9. Severe pulmonary hypertension. 10. Chronic systolic heart failure. 11. History of right breast cancer with previous lobectomy followed by radiation therapy. 12. Osteoporosis. 13. Anxiety and depression. 14. Nicotine dependence. 15. Chronic pain syndrome. Continue [place] 10. 17. Anemia of chronic disease. Continue vitamin B12. 18. Left eye glaucoma. The above impression and plan have been discussed and directed by Dr. Figueredo. Vel SIMON acting as scribe for Dr. Figueredo. Pertinent Studies: EKG; chest x-ray; chest CTA; echocardiogram with Doppler Patient Condition at Discharge: Good Plan - Discharge Summary New Discharge Prescriptions: Clopidogrel [Plavix] 75 mg PO DAILY #30 tab Furosemide [Lasix] 40 mg PO DAILY #30 tab Metoprolol Succinate (ER) [Toprol XL] 25 mg PO BID #60 tab.er.24h Varenicline [Chantix] 0.5 mg PO DAILY #1 packet Discharge Medication List ALPRAZolam [Xanax] 0.5 mg PO HS PRN 06/23/14 [History] Gabapentin 400 mg PO BID 06/24/14 [History] Hydrocodone/Acetaminophen [Hydrocodone/Acetaminophen 10-325] 1 tab PO TID PRN [History] Budesonide-Formot 160-4.5 Mcg [Symbicort 160-4.5 Mcg Inhaler] 2 puff INHALATION RT-BID #1 inhaler 06/29/14 [Rx] Atorvastatin [Lipitor] 80 mg PO HS #30 tab 07/18/14 [Rx] Nitroglycerin Sl Tabs [Nitrostat] 0.4 mg SUBLINGUAL Q5M PRN #25 tab 07/18/14 [Rx ] Cyanocobalamin [Vitamin B-12] 4,000 mcg PO DAILY@1500 07/21/14 [History] Multivitamins, Thera [Multivitamin] 1 tab PO DAILY 07/21/14 [History] Albuterol Nebulized [Ventolin Nebulized] 2.5 mg INHALATION RT-QID 10/29/14 [ History] Alendronate Sodium [Fosamax] 70 mg PO WE 10/29/14 [History] PARoxetine HCL 60 mg PO DAILY 10/29/14 [History] Primidone [Mysoline] 50 mg PO BID 10/29/14 [History] buPROPion SR [Wellbutrin SR] 150 mg PO DAILY 10/29/14 [History] Aspirin 81 mg PO Q48H 09/17/15 [History] Spironolactone [Aldactone] 12.5 mg PO DAILY 09/17/15 [History] Tiotropium [place] [Spiriva] 18 mcg INHALATION RT-DAILY 09/17/15 [History] Vitamin E 1,000 unit PO DAILY 09/17/15 [History] Black Cohosh Root [Black Cohosh] 400 mg PO DAILY 08/05/16 [History] Glycopyrrolate/Formoterol Fum [Bevespi Aerosphere Inhaler] 1 puff INHALATION RT- BID 08/05/16 [History] Latanoprost Ophth [Xalatan 0.005%] 1 drops LEFT EYE HS 08/05/16 [History] Oxybutynin Xl [Ditropan XL] 5 mg PO DAILY 08/05/16 [History] Ranitidine HCl [Zantac] 150 mg PO BID PRN 08/05/16 [History] Clopidogrel [Plavix] 75 mg PO DAILY #30 tab 08/06/16 [Rx] Furosemide [Lasix] 40 mg PO DAILY #30 tab 08/06/16 [Rx] Metoprolol Succinate (ER) [Toprol XL] 25 mg PO BID #60 tab.er.24h 08/06/16 [Rx] Varenicline [Chantix] 0.5 mg PO DAILY #1 packet 08/06/16 [Rx] Follow up Appointment(s)/Referral(s): Duarte Figueredo Jr, DO [Primary Care Provider] - 1-2 days [facility] [Provider Group] - 1 Week Jessica Cardoso MD [STAFF PHYSICIAN] - 1 Week Patient Instructions/Handouts: Heart Failure (DC) Discharge Disposition: HOME SELF-CARE
[2016-08-06 13:24] VITALS: BP 100/69; RESP 16
--- NOTE | 2016-08-06 15:04 | P.PN ---
Subjective 60-year-old female patient with known history of advanced oxygen-dependent COPD , maintained on a combination of Spiriva and Symbicort and oxygen on outpatient basis, along with known history of coronary artery disease with previous PCI and stenting of the RCA in 2015, congestion heart failure and peripheral vascular disease along with hypertension and hyperlipidemia and she is also known to have significant degree of secondary pulmonary hypertension based on a previous echocardiogram. The patient is a chronic smoker and smokes around half to one pack of cigarettes on a daily basis. Over the past week or so the patient has been expressing progressive increased shortness of breath. She had dyspnea cough chest tightness and wheezing typically of COPD exacerbation. No orthopnea. No chest pain. No pleurisy. No hemoptysis. No swelling in the lower extremities. The patient was quite short of breath and yesterday she woke up and she got to point where she was unable to speak up. This is. At that point she came into the hospital for further evaluation and management. Note that her d-dimer was negative. Her troponin was at 0.012 and the proBNP level was at 3670. She is clinically feeling better as the patient was injected with a combination of bronchodilators and steroids. Chest x-ray shows no evidence of an acute pneumonia. There may be some early signs of heart failure. There is no massive pulmonary edema or pleural effusions. On 08/06/2016 the patient is being seen in follow-up in the patient is being treated for an acute COPD exacerbation and a mild component of CHF. She is much improved. She states that she is back to her baseline. No fever or chills. No hemodynamic instability. No cough or sputum production any chest pain. It seems that the patient is ready to discharge from the pulmonary standpoint. She is agreeable for discharge. Objective - Vital Signs Vital signs: Vital Signs Temp 97.4 F L 08/06/16 09:00 Pulse 70 08/06/16 13:23 Resp 16 08/06/16 13:23 BP 100/69 08/06/16 13:23 Pulse Ox 94 L 08/06/16 13:23 Intake & Output 08/05/16 08/06/16 08/06/16 18:59 06:59 18:59 Intake Total 200 240 300 Output Total 950 1650 Balance -750 -1410 300 Weight 48.988 kg 47.9 kg Intake: Oral 200 240 300 Output: Urine 950 1650 Other: # Voids 3 1 - Exam Thin and frail, and mild degree of respiratory distress, able to speak of. This is and she is not using it and was not breathing.Head exam was generally normal. There was no scleral icterus or corneal arcus. Mucous membranes were moist.Neck was supple and without jugular venous distension, thyromegaly, or carotid bruits. Carotids were easily palpable bilaterally. There was no adenopathy. Lung sounds are diminished and there is prolongation of the expiratory phase of breathing and scattered expiratory wheezes throughout the lung hastings bilaterally.Cardiac exam revealed the PMI to be normally situated and sized. The rhythm was regular and no extrasystoles were noted during several minutes of auscultation. The first and second heart sounds were normal and physiologic splitting of the second heart sound was noted. There were no murmurs, rubs, clicks, or gallops.Abdominal exam revealed normal bowel sounds. The abdomen was soft, non-tender, and without masses, organomegaly, or appreciable enlargement of the abdominal aorta.Examination of the extremities revealed easily palpable radial, femoral and pedal pulses. There was no cyanosis , clubbing or edema. - Labs CBC & Chem 7: 08/06/16 06:35 08/06/16 06:32 Labs: Abnormal Lab Results - Last 24 Hours (Table) 08/05/16 08/06/16 08/06/16 Range/Units 16:20 06:32 06:35 WBC 12.5 H (3.8-10.6) k/uL Neutrophils # 8.8 H (1.3-7.7) k/uL Glucose 110 H (74-99) mg/dL CK-MB (CK-2) 3.7 H* (0.0-2.4) ng/mL Assessment and Plan Plan: Assessment 1 acute COPD exacerbation. No evidence of any pneumonia. Nicotine addiction/ smoking and seems to be on the main risk factors for her recurrent COPD exacerbation. Clinically the patient is improving with the current treatment. On 08/06/2016, the patient is improving. The patient has responded nicely to the treatments offered which included bronchodilators, IV Solu-Medrol and IV Lasix. Her breathing status is back to its baseline and the patient has no specific complaints for now. 2 CHF with impaired LV function and severe pulmonary hypertension 3 coronary artery disease with previous PCI and coronary intervention and stenting 4 hypertension 5 peripheral vascular disease 6 breast cancer with a previous lumpectomy of the right breast followed by radiation therapy 7 chronic hypoxic respiratory failure maintained on oxygen 2 L/m visit cannula 8 osteoporosis 9 hyperlipidemia 10 smoking Plan Smoking cessation counseling was done. She can be discharged home on a combination of Spiriva and Symbicort. The patient will also take a prednisone burst taper. Smoking cessation. Diuretics. We'll follow-up in the office.
[2016-08-06 15:11] VITALS: PULSE 76
[2016-08-06] MEDS: CYANOCOBALAMIN 500 MCG TAB PO SCH (16:08)
[2016-08-06] MEDS ORDERED: METOPROLOL SUCCINATE (ER) 25 MG TAB.ER.24H PO SCH (21:00)
[2016-08-07] MEDS ORDERED: FUROSEMIDE 40 MG TAB PO SCH (09:00)
== END 2016-08-06 16:19 | disposition home health service (06) | DRG 291 ==
LOC: EC 04:16 → 6SEL 06:05
PROVIDERS: ADMIT Family Medicine; ATTEND Family Medicine
DX: I11.0 Hypertensive heart disease with heart failure (principal); G93.41 Metabolic encephalopathy; J96.21 Acute and chronic respiratory failure with hypoxia; I47.2 Ventricular tachycardia; J96.22 Acute and chronic respiratory failure with hypercapnia; J44.1 Chronic obstructive pulmonary disease with (acute) exacerbation; I27.2 Other secondary pulmonary hypertension; I73.9 Peripheral vascular disease, unspecified; I50.23 Acute on chronic systolic (congestive) heart failure; M81.0 Age-related osteoporosis without current pathological fracture; E78.5 Hyperlipidemia, unspecified; I25.10 Atherosclerotic heart disease of native coronary artery without angina pectoris; I25.5 Ischemic cardiomyopathy; I25.2 Old myocardial infarction; D63.8 Anemia in other chronic diseases classified elsewhere; H40.9 Unspecified glaucoma; G47.00 Insomnia, unspecified; F17.210 Nicotine dependence, cigarettes, uncomplicated; F41.9 Anxiety disorder, unspecified; G89.4 Chronic pain syndrome; I49.3 Ventricular premature depolarization; K21.9 Gastro-esophageal reflux disease without esophagitis; F32.9 Major depressive disorder, single episode, unspecified; K90.0 Celiac disease; I10 Essential (primary) hypertension; Z95.5 Presence of coronary angioplasty implant and graft; Z99.81 Dependence on supplemental oxygen; Z85.3 Personal history of malignant neoplasm of breast; Z79.02 Long term (current) use of antithrombotics/antiplatelets; Z79.82 Long term (current) use of aspirin; Z79.51 Long term (current) use of inhaled steroids; Z79.899 Other long term (current) drug therapy
CPT/HCPCS: 36415; 36600; 71010; 71275; 80048; 80053; 81003; 82550; 82553; 82805; 83605; 83735; 83880; 84484; 85025; 85379; 85610; 85730; 87502; 93005; 93306; 94640; 94660; 96374; 99285

== ENCOUNTER → 2016-08-27 | Outpatient (CLI) | payer OTHER ==
--- NOTE | 2016-08-27 15:10 | XR ---
EXAMINATION TYPE: XR cervical spine comp DATE OF EXAM ORDERED: 08/27/2016 12:53 PM HISTORY: S16.1XXA Strain of muscle, fascia and tendon, neck. COMPARISON: None. FINDINGS: Vertebral body height and alignment are maintained. Atlantoaxial relationships are normal. Prevertebral soft tissues are normal. There is degenerative disc disease and hypertrophic spondylosis at C4-5 and C5-6. The intervertebral foramina on the left appear reasonably well-maintained. There are poorly visualized on the right. The re is uncovertebral joint disease at C4-5 and C5-6. IMPRESSION: 1. NO ACUTE OSSEOUS ABNORMALITY. 2. DEGENERATIVE CHANGE.
== END ==
LOC: RADXRMAIN 12:38
PROVIDERS: ATTEND Family Medicine
DX: S16.1XXA Strain of muscle, fascia and tendon at neck level, initial encounter (principal); M47.812 Spondylosis without myelopathy or radiculopathy, cervical region
CPT/HCPCS: 72050

== ENCOUNTER 2016-12-04 04:08 | Inpatient (IN) | payer OTHER ==
[2016-12-04] MEDS ORDERED: MORPHINE SULFATE 4 MG/ML SYRINGE IV STA (04:14)
[2016-12-04] MEDS ORDERED: NITROGLYCERIN SL TABS 0.4 MG TAB SUBLINGUAL STA (04:14)
--- NOTE | 2016-12-04 04:25 | ED ---
SOB HPI - General Stated Complaint: FESTUS Source: EMS Mode of arrival: EMS Limitations: altered mental status (Acute dyspnea) - History of Present Illness Initial Comments: Patient is 61-year-old woman brought to be evaluated for shortness of breath. History is limited by the fact that the patient is very dyspneic. She is able to relate that she had the acute onset of shortness of breath this morning. She is able to indicate that she was not having chest pain. MD Complaint: shortness of breath -: hour(s) Consistency: constant Improves With: oxygen Worsens With: nothing Known History Of: COPD Treatments Prior to Arrival: oxygen, NIPPV - Related Data Home Medications Medication Instructions Recorded Confirmed ALPRAZolam [Xanax] 0.5 mg PO HS PRN 06/23/14 08/05/16 Gabapentin 400 mg PO BID 06/24/14 08/05/16 Hydrocodone/Acetaminophen 1 tab PO TID PRN 06/24/14 08/05/16 [Hydrocodone/Acetaminophen 10-325] Cyanocobalamin [Vitamin B-12] 4,000 mcg PO DAILY@1500 07/21/14 08/05/16 Multivitamins, Thera [Multivitamin 1 tab PO DAILY 07/21/14 08/05/16 (formulary)] Albuterol Nebulized [Ventolin 2.5 mg INHALATION RT-QID 10/29/14 08/05/16 Nebulized] Alendronate Sodium [Fosamax] 70 mg PO WE 10/29/14 08/05/16 PARoxetine HCL 60 mg PO DAILY 10/29/14 08/05/16 Primidone [Mysoline] 50 mg PO BID 10/29/14 08/05/16 buPROPion SR [Wellbutrin SR] 150 mg PO DAILY 10/29/14 08/05/16 Aspirin 81 mg PO Q48H 09/17/15 08/05/16 Spironolactone [Aldactone] 12.5 mg PO DAILY 09/17/15 08/05/16 Tiotropium [place] [Spiriva] 18 mcg INHALATION RT-DAILY 09/17/15 08/05/16 Vitamin E 1,000 unit PO DAILY 09/17/15 08/05/16 Black Cohosh Root [Black Cohosh] 400 mg PO DAILY 08/05/16 08/05/16 Glycopyrrolate/Formoterol Fum 1 puff INHALATION RT-BID 08/05/16 08/05/16 [Bevespi Aerosphere Inhaler] Latanoprost Ophth [Xalatan 0.005%] 1 drops LEFT EYE HS 08/05/16 08/05/16 Oxybutynin Xl [Ditropan XL] 5 mg PO DAILY 08/05/16 08/05/16 Ranitidine HCl [Zantac] 150 mg PO BID PRN 08/05/16 08/05/16 Previous Rx's Medication Instructions Recorded Budesonide-Formot 160-4.5 Mcg 2 puff INHALATION RT-BID #1 inhaler 06/29/14 [Symbicort 160-4.5 Mcg Inhaler] Atorvastatin [Lipitor] 80 mg PO HS #30 tab 07/18/14 Nitroglycerin Sl Tabs [Nitrostat] 0.4 mg SUBLINGUAL Q5M PRN #25 tab 07/18/14 Clopidogrel [Plavix] 75 mg PO DAILY #30 tab 08/06/16 Furosemide [Lasix] 40 mg PO DAILY #30 tab 08/06/16 Metoprolol Succinate (ER) [Toprol 25 mg PO BID #60 tab.er.24h 08/06/16 XL] Varenicline [Chantix] 0.5 mg PO DAILY #1 packet 08/06/16 Allergies Allergy/AdvReac Type Severity Reaction Status Date / Time No Known Allergies Allergy Verified 12/04/16 04:09 Review of Systems ROS Statement: Those systems with pertinent positive or pertinent negative responses have been documented in the HPI. ROS Other: All systems not noted in ROS Statement are negative. Limitations: ROS unobtainable due to patients medical condition Past Medical History Past Medical History: Coronary Artery Disease (CAD), Cancer, COPD, GERD/Reflux, Hyperlipidemia, Hypertension, Myocardial Infarction ([place]), Pneumonia, Vascular Disorder Additional Past Medical History / Comment(s): COPD, chronic hypoxic respiratory failure, coronary artery disease with previous coronary intervention and PCI and stenting of RCA, CHF with significant degree of secondary pulmonary hypertension, ischemic cardiac myopathy, celiac disease, breast cancer involving the right breast with previous lumpectomy followed by radiation therapy, osteoporosis, hypertension, hyperlipidemia, peripheral vascular disease Last Myocardial Infarction Date:: 2014 History of Any Multi-Drug Resistant Organisms: None Reported Past Surgical History: Breast Surgery, Section, Heart Catheterization With Stent, Orthopedic Surgery Additional Past Surgical History / Comment(s): R breast lumpectomy, 2002 CARDIAC STENTS X4, 2015 PTCA, WRIST SX X3, D&C, 11-01-14 AORTAGRAM W/RUNOFF, CECILIO ILIAC STENTS Past Anesthesia/Blood Transfusion Reactions: No Reported Reaction Date of Last Stent Placement:: 2001 Past Psychological History: Anxiety, Depression Smoking Status: Current every day smoker Past Alcohol Use History: None Reported Past Drug Use History: None Reported - Past Family History Mother Family Medical History: Diabetes Mellitus Additional Family Medical History / Comment(s): HEART ISSSUES Father Family Medical History: Blood Disorder Additional Family Medical History / Comment(s): HEMACHROMATOSIS General Exam Limitations: altered mental status General appearance: alert, in distress Head exam: Present: atraumatic, normocephalic Eye exam: Present: normal appearance. Absent: scleral icterus, conjunctival injection ENT exam: Present: mucous membranes dry Neck exam: Present: normal inspection, full ROM. Absent: other (No JVD) Respiratory exam: Present: respiratory distress, wheezes, accessory muscle use, decreased breath sounds. Absent: rales, rhonchi, stridor, chest wall tenderness Cardiovascular Exam: Present: regular rate, normal rhythm, gallop GI/Abdominal exam: Present: soft. Absent: tenderness, guarding, rebound, mass Extremities exam: Present: normal inspection, normal capillary refill. Absent: pedal edema, calf tenderness Back exam: Present: normal inspection. Absent: CVA tenderness (R), CVA tenderness (L) Neurological exam: Present: alert Psychiatric exam: Present: anxious Skin exam: Present: warm, intact, normal color, diaphoretic. Absent: rash Course Vital Signs 12/04/16 12/04/16 12/04/16 04:09 04:17 04:37 Temperature 96.7 F L Pulse Rate 98 94 87 Respiratory 40 H 42 H Rate Blood Pressure 170/93 166/94 O2 Sat by Pulse 95 94 L Oximetry 12/04/16 12/04/16 12/04/16 04:38 04:55 05:29 Temperature Pulse Rate 87 82 79 Respiratory 35 H 24 Rate Blood Pressure 138/69 116/66 O2 Sat by Pulse 99 98 Oximetry Medical Decision Making - Medical Decision Making Patient is 61-year-old woman presenting with severe dyspnea. She is feeling much better following. On BiPAP and also some sublingual nitroglycerin which have brought her blood pressure down. She did want to try managing off of the BiPAP and was placed on nasal cannula. The patient's d-dimer is found to be elevated and she will have computed tomography scan to rule out a pulmonary embolism. Heparin is ordered as coverage. The patient's chest x-ray shows what appears to be left lower lobe infiltrate and she is started on antibiotics. I discussed transferring the patient back to [facility] where she did have her bypass performed the of this month, but patient is refusing that at the moment wanting to stay local, where she knows the woodwind instruments inspector. Case discussed with Dr. Munoz who will admit, with consultation for patient's woodwind instruments inspector, Dr. Cardoso. - Lab Data Result diagrams: 12/04/16 04:24 12/04/16 04:24 Lab Results 12/04/16 12/04/16 12/04/16 Range/Units 04:13 04:24 04:24 WBC 28.4 H* (3.8-10.6) k/uL RBC 3.43 L (3.80-5.40) m/uL Hgb 9.9 L (11.4-16.0) gm/dL Hct 34.2 (34.0-46.0) % MCV 99.8 (80.0-100.0) fL MCH 29.0 (25.0-35.0) pg MCHC 29.0 L (31.0-37.0) g/dL RDW 19.7 H (11.5-15.5) % Plt Count 920 H* (150-450) k/uL Neutrophils % 81 % Lymphocytes % 7 % Monocytes % 7 % Eosinophils % 1 % Basophils % 1 % Neutrophils # 23.1 H (1.3-7.7) k/uL Lymphocytes # 2.0 (1.0-4.8) k/uL Monocytes # 2.0 H (0-1.0) k/uL Eosinophils # 0.4 (0-0.7) k/uL Basophils # 0.1 (0-0.2) k/uL Hypochromasia Marked Anisocytosis Slight Macrocytosis Moderate PT (9.0-12.0) sec INR (<1.1) APTT (22.0-30.0) sec D-Dimer (<0.60) mg/L FEU Sample Site rbrach ABG pH 7.25 L (7.35-7.45) ABG pCO2 59 H (35-45) mmHg ABG pO2 342 H (83-108) mmHg ABG HCO3 25 (21-25) mmol/L ABG Total CO2 27 H (19-24) mmol/L ABG O2 Saturation 100.0 H (94-97) % ABG Base Excess -1.5 mmol/L FiO2 100 % Sodium (137-145) mmol/L Potassium (3.5-5.1) mmol/L Chloride (98-107) mmol/L Carbon Dioxide (22-30) mmol/L Anion Gap mmol/L BUN (7-17) mg/dL Creatinine (0.52-1.04) mg/dL Est GFR (MDRD) Af Amer (>60 ml/min/1.73 sqM) Est GFR (MDRD) Non-Af (>60 ml/min/1.73 sqM) Glucose (74-99) mg/dL Calcium (8.4-10.2) mg/dL Total Bilirubin (0.2-1.3) mg/dL AST (14-36) U/L ALT (9-52) U/L Alkaline Phosphatase (38-126) U/L Total Creatine Kinase 81 (30-135) U/L CK-MB (CK-2) 2.4 (0.0-2.4) ng/mL CK-MB (CK-2) Rel Index 3.0 Troponin I 0.413 H* (0.000-0.034) ng/mL NT-Pro-B Natriuret Pep pg/mL Total Protein (6.3-8.2) g/dL Albumin (3.5-5.0) g/dL 12/04/16 12/04/16 12/04/16 Range/Units 04:24 04:24 04:24 WBC (3.8-10.6) k/uL RBC (3.80-5.40) m/uL Hgb (11.4-16.0) gm/dL Hct (34.0-46.0) % MCV (80.0-100.0) fL MCH (25.0-35.0) pg MCHC (31.0-37.0) g/dL RDW (11.5-15.5) % Plt Count (150-450) k/uL Neutrophils % % Lymphocytes % % Monocytes % % Eosinophils % % Basophils % % Neutrophils # (1.3-7.7) k/uL Lymphocytes # (1.0-4.8) k/uL Monocytes # (0-1.0) k/uL Eosinophils # (0-0.7) k/uL Basophils # (0-0.2) k/uL Hypochromasia Anisocytosis Macrocytosis PT 10.4 (9.0-12.0) sec INR 1.0 (<1.1) APTT 24.7 (22.0-30.0) sec D-Dimer 9.03 H (<0.60) mg/L FEU Sample Site ABG pH (7.35-7.45) ABG pCO2 (35-45) mmHg ABG pO2 (83-108) mmHg ABG HCO3 (21-25) mmol/L ABG Total CO2 (19-24) mmol/L ABG O2 Saturation (94-97) % ABG Base Excess mmol/L FiO2 % Sodium 138 (137-145) mmol/L Potassium 5.9 H (3.5-5.1) mmol/L Chloride 101 (98-107) mmol/L Carbon Dioxide 22 (22-30) mmol/L Anion Gap 15 mmol/L BUN 20 H (7-17) mg/dL Creatinine 0.68 (0.52-1.04) mg/dL Est GFR (MDRD) Af Amer >60 (>60 ml/min/1.73 sqM) Est GFR (MDRD) Non-Af >60 (>60 ml/min/1.73 sqM) Glucose 199 H (74-99) mg/dL Calcium 8.7 (8.4-10.2) mg/dL Total Bilirubin 1.3 (0.2-1.3) mg/dL AST 97 H (14-36) U/L ALT 66 H (9-52) U/L Alkaline Phosphatase 275 H (38-126) U/L Total Creatine Kinase (30-135) U/L CK-MB (CK-2) (0.0-2.4) ng/mL CK-MB (CK-2) Rel Index Troponin I (0.000-0.034) ng/mL NT-Pro-B Natriuret Pep 9720 pg/mL Total Protein 6.7 (6.3-8.2) g/dL Albumin 3.8 (3.5-5.0) g/dL - EKG Data -: EKG Interpreted by Me EKG shows normal: sinus rhythm, axis (Left axis deviation), intervals (Normal), QRS complexes (There are Q waves in leads V2 and V3 consistent with probable old anteroseptal infarct) Rate: normal (Rate 97 bpm) Disposition Clinical Impression: COPD (chronic obstructive pulmonary disease), Elevated troponin, Acute respiratory failure, Systolic CHF, acute on chronic, Elevated d-dimer Disposition: ADMITTED IP TO THIS HOSP Condition: Serious Referrals: Duarte Figueredo Jr, [Primary Care Provider] - 1-2 days
[2016-12-04 04:33] LABS: Anisocytosis Slight; Basophils # (A) 0.1 k/uL (0-0.2); Basophils % (A) 1 %; CH 29.4; CHCM 29.8; Eosinophils # (A) 0.4 k/uL (0-0.7); Eosinophils % (A) 1 %; HCT 34.2 % (34.0-46.0); HDW 3.09; HGB 9.9 gm/dL (11.4-16.0); Hypochromasia Marked; Luc # (Auto) 0.74; Luc % (Auto) 3; Lymphocytes % (A) 7 %; MCV 99.8 fL (80.0-100.0); Macrocytosis Moderate; Mean Platelet Volume 6.7; Monocytes % (A) 7 %; Neutrophils # (A) 23.1 k/uL (1.3-7.7); Neutrophils % (A) 81 %; RBC 3.43 m/uL (3.80-5.40); RDW 19.7 % (11.5-15.5)
[2016-12-04 04:33] LABS: ABG PCO2 59 mmHg (35-45); ABG PH 7.25 (7.35-7.45); ABG PO2 342 mmHg (83-108)
[2016-12-04 04:34] LABS: ABG Base Excess -1.5 mmol/L; ABG HCO3 25 mmol/L (21-25); ABG TCO2 27 mmol/L (19-24)
[2016-12-04] MEDS ORDERED: IPRATROPIUM-ALBUTEROL 3 ML NEB INHALATION STA (04:38)
[2016-12-04 04:43] LABS: ALT 66 U/L (9-52); AST 97 U/L (14-36); Alkaline Phosphatase 275 U/L (38-126); Anion Gap 15 mmol/L; Blood Urea Nitrogen 20 mg/dL (7-17); Calcium 8.7 mg/dL (8.4-10.2); Carbon Dioxide 22 mmol/L (22-30); Chloride 101 mmol/L (98-107); Glucose 199 mg/dL (74-99); Non-African American GFR(MDRD) >60 (>60 ml/min/1.73 sqM); Potassium 5.9 mmol/L (3.5-5.1); Sodium 138 mmol/L (137-145); Total Bilirubin 1.3 mg/dL (0.2-1.3); Total Protein 6.7 g/dL (6.3-8.2)
--- NOTE | 2016-12-04 04:44 | XR ---
EXAM: XR Chest, 1 View CLINICAL HISTORY: Reason: dyspnea TECHNIQUE: Frontal view of the chest. COMPARISON: 09/09/16 FINDINGS: There is developing consolidation at the left lung base. Question a small pleural effusion as well. Lateral view would be helpful. Interval sternotomy for mitral valve replacement and coronary revascularization. There is also a left atrial appendage occlusion device. IMPRESSION: Left base consolidation could reflect pneumonitis. Suspect small left effusion as well. Interval sternotomy
[2016-12-04 04:57] LABS: WBC 28.4 k/uL (3.8-10.6)
[2016-12-04 05:03] LABS: Partial Thromboplastin Time 24.7 sec (22.0-30.0); Prothrombin Time 10.4 sec (9.0-12.0)
[2016-12-04] MEDS ORDERED: LEVOFLOXACIN 750MG-D5W PMX 750 MG in DEXTROSE/WATER 1 150ML.BAG IVPB STA (05:10)
[2016-12-04] MEDS ORDERED: PIPERACILLIN-TAZOBACTAM 3.375 GM in DEXTROSE/WATER 1 50ML.BAG IVPB STA (05:10)
[2016-12-04 05:11] LABS: Creatine Kinase MB 2.4 ng/mL (0.0-2.4); Troponin I 0.413 ng/mL (0.000-0.034)
[2016-12-04] MEDS ORDERED: RX INFO: IV CONTRAST WAS GIVEN 1 EACH MISC MISCELLANE PRN (06:31)
[2016-12-04] MEDS ORDERED: HEPARIN SODIUM,PORCINE 5,000 UNIT/ML 1 ML VIAL IV PRN (06:31)
[2016-12-04] MEDS ORDERED: HEPARIN SODIUM,PORCINE 5,000 UNIT/ML 1 ML VIAL IV ONE (06:31)
[2016-12-04] MEDS ORDERED: PNEUMONIA PROTOCOL UTILIZED 1 EACH MISC PO PRN (06:32)
[2016-12-04] MEDS ORDERED: FAMOTIDINE 20 MG TAB PO PRN (06:35)
[2016-12-04] MEDS ORDERED: NITROGLYCERIN SL TABS 0.4 MG TAB SUBLINGUAL PRN (06:35)
[2016-12-04] MEDS: HEPARIN SODIUM,PORCINE/D5W PMX 25,000 UNIT in DEXTROSE/WATER 1 500ML.BAG IV SCH (07:07)
[2016-12-04] MEDS: IPRATROPIUM-ALBUTEROL 3 ML NEB INHALATION SCH ×4 (07:51→19:12)
[2016-12-04] MEDS ORDERED: NON-FORMULARY DRUG (Glycopyrrolate/Formoterol Fum [Bevespi Aerosphere Inhaler] 1 PUFF) INHALATION SCH (08:00)
[2016-12-04] MEDS ORDERED: ALBUTEROL NEBULIZED 2.5 MG/3 ML INHALATION SCH (08:00)
[2016-12-04] MEDS ORDERED: SYMBICORT 160-4.5 MCG INHALER INHALATION SCH (08:00)
[2016-12-04] MEDS ORDERED: TIOTROPIUM 18 MCG/PUFF INHALER INHALATION SCH (08:00)
--- NOTE | 2016-12-04 08:07 | CT ---
EXAMINATION TYPE: CT chest angio for PE DATE OF EXAM: 12/04/2016 COMPARISON: NONE HISTORY: SOB CT DLP: 397 mGycm Automated exposure control for dose reduction was used. CONTRAST: CT Chest for pulmonary embolism performed with with IV Contrast, patient injected with 84 mL of Omnip aque 350. FINDINGS: There has been a midline sternotomy. There is There are extensive emphysematous changes throughout both lungs. There is bibasilar airspace disease, worse on the left than the right. There are small, bilateral pleural effusions. The effusion on the right may be loculated. There is no significant axillary, internal mammary, mediastinal or hilar adenopathy. There is no evidence of pulmonary embolus. The aorta is normal in caliber without evidence of dissection. The heart is mildly enlarged. There is no pericardial effusion. Visualized upper abdominal structures are unremarkable. There is moderate vascular calcification. No bony lesion is seen. IMPRESSION: 1. This examination is negative for pulmonary embolus. 2. Emphysematous changes. 3. Bibasilar airspace disease, worse on the left than the right. 4. Bilateral effusions, larger on the left than the right. 5. Cardiomegaly.
[2016-12-04] MEDS: SODIUM CHLORIDE 0.9% 1,000 ML IV SCH (08:46)
[2016-12-04] MEDS ORDERED: FUROSEMIDE 40 MG TAB PO SCH (09:00)
[2016-12-04] MEDS ORDERED: SPIRONOLACTONE 25 MG TAB PO SCH (09:00)
[2016-12-04] MEDS ORDERED: VARENICLINE 0.5 MG TAB PO SCH (09:00)
[2016-12-04] MEDS: PARoxetine 20 MG TAB PO SCH (10:26)
[2016-12-04] MEDS: HYDROcodone/APAP 10-325MG 1 EACH TAB PO PRN ×2 (10:27→22:50)
[2016-12-04] MEDS: ALPRAZolam 0.5 MG TAB PO PRN (10:27)
[2016-12-04] MEDS: PRIMIDONE 50 MG TAB PO SCH ×2 (10:28→22:38)
[2016-12-04] MEDS: buPROPion SR 150 MG TABLET.ER PO SCH (10:28)
[2016-12-04] MEDS: ASPIRIN 81 MG CHEW PO SCH (10:29)
[2016-12-04] MEDS: CLOPIDOGREL 75 MG TAB PO SCH (10:29)
[2016-12-04] MEDS: GABAPENTIN 400 MG CAP PO SCH ×2 (10:30→22:37)
[2016-12-04] MEDS: METOPROLOL SUCCINATE (ER) 25 MG TAB.ER.24H PO SCH ×2 (10:30→22:38)
[2016-12-04] MEDS: OXYBUTYNIN XL 5 MG TAB.ER.24 PO SCH (10:30)
--- NOTE | 2016-12-04 11:25 | ECHOF ---
Referral Reason:dyspnea/CHF MEASUREMENTS -------- HEIGHT: 157.5 cm WEIGHT: 52.2 kg BP: 120/50 IVSd: 1.1 cm (0.6 - 1.1) LVIDd: 5.2 cm (3.9 - 5.3) LVPWd: 1.3 cm (0.6 - 1.1) LVIDs: 4.7 cm LA Diam: 4.0 cm (2.7 - 3.8) RVIDd: 3.8 cm (< 3.3) LAESV Index (A-L): 30.72 ml/m Ao Diam: 2.7 cm (2.0 - 3.7) LA Diam: 4.9 cm (2.7 - 3.8) AV Cusp: 1.9 cm (1.5 - 2.6) EPSS: 0.9 cm MV E Ricki: 1.61 m/s MV DecT: 200 ms MV A Ricki: 0.71 m/s MV E/A Ratio: 2.28 RAP: 5.00 mmHg RVSP: 61.15 mmHg MV EF SLOPE: 61.44 mm/s (70 - 150) MV EXCURSION: 14.58 mm (> 18.000) FINDINGS -------- Sinus rhythm. This was a technically adequate study. Left ventricular wall thickness is normal. There is severe global hypokinesis of LV . Overall left ventricular systolic function is severely impaired with, an EF < 20%. Mitral Doppler inflow pattern suggests diastolic filling abnormality 28.93. The right ventricle is mildly enlarged. LA is midly dilated 29-33ml/m2. The right atrial size is normal. There is mild aortic valve sclerosis. There is no evidence of aortic regurgitation. The peak and mean MV gradients are 13.35mmHg 2.83mmHg as measured by doppler. MV Repair. [id number] tricuspid regurgitation present. There is moderate pulmonary hypertension. The right ventricular systolic pressure, as measured by Doppler, is 61.15mmHg. There is no pulmonic regurgitation present. The aortic root size is normal. There is no pericardial effusion. CONCLUSIONS -------- 1. Left ventricular wall thickness is normal. 2. [id number] tricuspid regurgitation present. 3. There is moderate pulmonary hypertension. 4. The right ventricular systolic pressure, as measured by Doppler, is 61.15mmHg. 5. There is no pulmonic regurgitation present. 6. The aortic root size is normal. 7. There is no pericardial effusion. 8. There is severe global hypokinesis of LV . 9. Overall left ventricular systolic function is severely impaired with, an EF < 20%. 10. Mitral Doppler inflow pattern suggest diastolic filling abnormality 28.93. 11. The right ventricle is mildly enlarged. 12. LA is midly dilated 29-33ml/m2. 13. There is mild aortic valve sclerosis. 14. The peak and mean MV gradients are 13.35mmHg 2.83mmHg as measured by doppler. 15. MV Repair. [employer] PREPARER: Alaina Frost RDCS
[2016-12-04 11:29] VITALS: BMI 21.0
--- NOTE | 2016-12-04 11:37 | P.CRDCN ---
History of Present Illness Consult date: 12/04/16 Requesting physician: Duarte Figuereod Jr Consult reason: shortness of breath Chief complaint: Sudden onset of shortness of breath History of present illness: This is a 61-year-old female with known history of coronary artery disease and prior stent placement to the RCA in 2014, and apparently was also just discharged home from [facility] yesterday after undergoing coronary artery bypass surgery and valve repair according to the . She also has history of PAD with prior stenting in the right and left external iliac artery, hypertension, hyperlipidemia, nicotine dependence, ischemic cardio myopathy with prior documented ejection fraction of 30-35%, severe pulmonary hypertension. Patient presents to the hospital with sudden onset of severe shortness of breath. According to her she was just discharged home from [facility] after bypass and valve surgery, she states she was feeling overall fairly well, suddenly became extremely short of breath to the point where she states she could not breathe at all. She also states that prior to her discharge from the hospital she did undergo a thoracentesis. Blood pressure on arrival 170/90 heart rate in the 90s. Patient is tachypneic, respirations in the 40s. 95% on a BiPAP. Blood cell count on admission 28.4, hemoglobin 9.9, platelet count 920. PH 7.25, pCO2 59, pO2 342. Potassium 5.9, BUN 20, creatinine 0.6. AST 97, ALT 66, alk phos 275. Troponins 0.41, BNP 9720. CT of the chest negative for PE, does reveal some emphysema changes and bilateral effusions. Echocardiogram with Doppler study was performed which revealed an ejection fraction of less than 20%. The time of my examination this morning, patient is quite short of breath and tachypnea. Past Medical History Past Medical History: Coronary Artery Disease (CAD), Cancer, COPD, GERD/Reflux, Hyperlipidemia, Hypertension, Myocardial Infarction ([place]), Pneumonia, Vascular Disorder Additional Past Medical History / Comment(s): COPD, chronic hypoxic respiratory failure, coronary artery disease with previous coronary intervention and PCI and stenting of RCA, CHF with significant degree of secondary pulmonary hypertension, ischemic cardiac myopathy, celiac disease, breast cancer involving the right breast with previous lumpectomy followed by radiation therapy, osteoporosis, hypertension, hyperlipidemia, peripheral vascular disease Last Myocardial Infarction Date:: 2014 History of Any Multi-Drug Resistant Organisms: None Reported Past Surgical History: Breast Surgery, Section, Heart Catheterization With Stent, Orthopedic Surgery Additional Past Surgical History / Comment(s): R breast lumpectomy, 2002 CARDIAC STENTS X4, 2015 PTCA, WRIST SX X3, D&C, 11-01-14 AORTAGRAM W/RUNOFF, CECILIO ILIAC STENTS Past Anesthesia/Blood Transfusion Reactions: No Reported Reaction Date of Last Stent Placement:: 2001 Past Psychological History: Anxiety, Depression Smoking Status: Current every day smoker Past Alcohol Use History: None Reported Past Drug Use History: None Reported - Past Family History Mother Family Medical History: Diabetes Mellitus Additional Family Medical History / Comment(s): HEART ISSSUES Father Family Medical History: Blood Disorder Additional Family Medical History / Comment(s): HEMACHROMATOSIS Medications and Allergies Home Medications Medication Instructions Recorded Confirmed Type ALPRAZolam [Xanax] 0.5 mg PO HS PRN 06/23/14 08/05/16 History Gabapentin 400 mg PO BID 06/24/14 08/05/16 History Hydrocodone/Acetaminophen 1 tab PO TID PRN 06/24/14 08/05/16 History [Hydrocodone/Acetaminophen 10-325] Cyanocobalamin [Vitamin B-12] 4,000 mcg PO DAILY@1500 07/21/14 08/05/16 History Multivitamins, Thera [Multivitamin 1 tab PO DAILY 07/21/14 08/05/16 History (formulary)] Albuterol Nebulized [Ventolin 2.5 mg INHALATION RT-QID 10/29/14 08/05/16 History Nebulized] Alendronate Sodium [Fosamax] 70 mg PO WE 10/29/14 08/05/16 History PARoxetine HCL 60 mg PO DAILY 10/29/14 08/05/16 History Primidone [Mysoline] 50 mg PO BID 10/29/14 08/05/16 History buPROPion SR [Wellbutrin SR] 150 mg PO DAILY 10/29/14 08/05/16 History Aspirin 81 mg PO Q48H 09/17/15 08/05/16 History Spironolactone [Aldactone] 12.5 mg PO DAILY 09/17/15 08/05/16 History Tiotropium [place] [Spiriva] 18 mcg INHALATION RT-DAILY 09/17/15 08/05/16 History Vitamin E 1,000 unit PO DAILY 09/17/15 08/05/16 History Black Cohosh Root [Black Cohosh] 400 mg PO DAILY 08/05/16 08/05/16 History Glycopyrrolate/Formoterol Fum 1 puff INHALATION RT-BID 08/05/16 08/05/16 History [Bevespi Aerosphere Inhaler] Latanoprost Ophth [Xalatan 0.005%] 1 drops LEFT EYE HS 08/05/16 08/05/16 History Oxybutynin Xl [Ditropan XL] 5 mg PO DAILY 08/05/16 08/05/16 History Ranitidine HCl [Zantac] 150 mg PO BID PRN 08/05/16 08/05/16 History Allergies Allergy/AdvReac Type Severity Reaction Status Date / Time No Known Allergies Allergy Verified 12/04/16 04:09 Physical Exam Vitals: Vital Signs Temp Pulse Resp BP Pulse Ox 12/04/16 08:00 78 18 135/76 94 L 12/04/16 07:51 90 L 12/04/16 07:00 76 20 131/71 94 L 12/04/16 06:00 77 22 113/68 98 12/04/16 05:29 79 24 116/66 98 12/04/16 04:55 82 12/04/16 04:38 87 35 H 138/69 99 12/04/16 04:37 87 12/04/16 04:17 94 42 H 166/94 94 L 12/04/16 04:09 96.7 F L 98 40 H 170/93 95 Intake and Output 12/03/16 12/04/16 12/04/16 22:59 06:59 14:59 Other: # Voids 1 Weight 52.163 kg PHYSICAL EXAMINATION: HEENT: Head is atraumatic, normocephalic. Pupils equal, round. Neck is supple. There is elevated jugular venous pressure. HEART EXAMINATION: Heart S1 and S2 with systolic murmur is heard. CHEST EXAMINATION: Lungs revealed decreased air exchange throughout ABDOMEN: Soft, nontender. Bowel sounds are heard. No organomegaly noted. EXTREMITIES: 1+ peripheral pulses with trace evidence of peripheral edema and no calf tenderness noted. Bilateral ecchymosis NEUROLOGIC patient is awake, alert and oriented -3. . Results 12/04/16 04:24 12/04/16 04:24 Cardiac Enzymes 06/24/17 06/24/17 Range/Units 04:24 04:24 AST 97 H (14-36) U/L CK-MB (CK-2) 2.4 (0.0-2.4) ng/mL Troponin I 0.413 H* (0.000-0.034) ng/mL Coagulation 12/04/16 Range/Units 04:24 PT 10.4 (9.0-12.0) sec APTT 24.7 (22.0-30.0) sec CBC 12/04/16 Range/Units 04:24 WBC 28.4 H* (3.8-10.6) k/uL RBC 3.43 L (3.80-5.40) m/uL Hgb 9.9 L (11.4-16.0) gm/dL Hct 34.2 (34.0-46.0) % Plt Count 920 H* (150-450) k/uL Comprehensive Metabolic Panel 12/04/16 Range/Units 04:24 Sodium 138 (137-145) mmol/L Potassium 5.9 H (3.5-5.1) mmol/L Chloride 101 (98-107) mmol/L Carbon Dioxide 22 (22-30) mmol/L BUN 20 H (7-17) mg/dL Creatinine 0.68 (0.52-1.04) mg/dL Glucose 199 H (74-99) mg/dL Calcium 8.7 (8.4-10.2) mg/dL AST 97 H (14-36) U/L ALT 66 H (9-52) U/L Alkaline Phosphatase 275 H (38-126) U/L Total Protein 6.7 (6.3-8.2) g/dL Albumin 3.8 (3.5-5.0) g/dL Current Medications Generic Name Dose Route Start Last Admin Trade Name Freq PRN Reason Stop Dose Admin Hydrocodone Bitart/Acetaminophen 1 each 12/04/16 06:35 12/04/16 10:27 [place] 10 PO 1 each TID PRN Administration Moderate Pain Albuterol/Ipratropium 3 ml 12/04/16 08:00 12/04/16 07:51 Duoneb 0.5 Mg-3 Mg/3 Ml Soln INHALATION Not Given RT-Q4H AGUILA Alprazolam 0.5 mg 12/04/16 06:35 12/04/16 10:27 Xanax PO 0.5 mg HS PRN Administration Anxiety Aspirin 81 mg 12/04/16 09:00 12/04/16 10:29 Aspirin PO 81 mg Q48H AGUILA Administration Atorvastatin Calcium 80 mg 12/04/16 21:00 Lipitor PO HS REPLACED BY [facility] Budesonide/Formoterol Fumarate 2 puff 12/04/16 08:00 12/04/16 07:51 Symbicort 160-4.5 Mcg Inhaler INHALATION Not Given RT-BID REPLACED BY [facility] Bupropion HCl 150 mg 12/04/16 09:00 12/04/16 10:28 Wellbutrin Sr PO 150 mg DAILY REPLACED BY [facility] Administration Clopidogrel Bisulfate 75 mg 12/04/16 09:00 12/04/16 10:29 Plavix PO 75 mg DAILY REPLACED BY [facility] Administration Cyanocobalamin 4,000 mcg 12/04/16 15:00 Vitamin B-12 PO DAILY@1500 REPLACED BY [facility] Famotidine 20 mg 12/04/16 06:35 Pepcid PO BID PRN Heartburn Furosemide 40 mg 12/04/16 09:00 12/04/16 10:27 Lasix PO 40 mg DAILY REPLACED BY [facility] Administration Gabapentin 400 mg 12/04/16 09:00 12/04/16 10:30 Neurontin PO 400 mg BID AGUILA Administration Heparin Sodium (Porcine) 0 unit 12/04/16 06:31 Heparin IV PER PROTOCOL PRN Low PTT Protocol Heparin Sodium/Dextrose 25,000 500 mls @ 18.77 mls/hr 12/04/16 06:31 07:07 unit/ IV Solution IV 18 units/kg/hr .Q24H AGUILA 18.77 mls/hr Protocol Administration 18 UNITS/KG/HR Levofloxacin 750 mg/ IV 150 mls @ 100 mls/hr 12/05/16 06:00 Solution IVPB 12/17/16 06:01 Q24H REPLACED BY [facility] Piperacillin/Tazobactam/ 50 mls @ 12.5 mls/hr 12/04/16 15:00 Dextrose 3.375 gm/ IV Solution IVPB 12/14/16 15:01 Q8HR REPLACED BY [facility] Sodium Chloride 1,000 mls @ 20 mls/hr 12/04/16 06:45 12/04/16 08:46 Saline 0.9% IV 20 mls/hr .Q24H AGUILA Administration Latanoprost 1 drops 12/04/16 21:00 Xalatan 0.005% LEFT EYE HS AGUILA Metoprolol Succinate 25 mg 12/04/16 09:00 12/04/16 10:30 Toprol Xl PO 25 mg BID AGUILA Administration Miscellaneous Information 1 each 12/04/16 06:31 Rx Info: Iv Contrast Was Given MISCELLANE 12/06/16 06:31 DAILY PRN Per Protocol Miscellaneous Information 1 each 12/04/16 06:32 Pneumonia Protocol Utilized PO ONCE PRN Per Protocol Multivitamins 1 each 12/04/16 12:00 Theragran PO 1200 AGUILA Nitroglycerin 0.4 mg 12/04/16 06:35 Nitrostat SUBLINGUAL Q5M PRN Chest Pain Non-Formulary Medication 1 puff 12/04/16 08:00 Glycopyrrolate/Formoterol Fum [Bevespi Aerosphere Inhaler] INHALATION RT-BID AGUILA Oxybutynin Chloride 5 mg 12/04/16 09:00 12/04/16 10:30 Ditropan Xl PO 5 mg DAILY AGUILA Administration Paroxetine HCl 60 mg 12/04/16 09:00 12/04/16 10:26 Paxil PO 60 mg DAILY AGUILA Administration Primidone 50 mg 12/04/16 09:00 12/04/16 10:28 Mysoline PO 50 mg BID AGUILA Administration Spironolactone 12.5 mg 12/04/16 09:00 12/04/16 10:26 Aldactone PO 12.5 mg DAILY AGUILA Administration Varenicline 0.5 mg 12/04/16 09:00 Chantix PO DAILY AGUILA Intake and Output 12/03/16 12/04/16 12/04/16 22:59 06:59 14:59 Other: # Voids 1 Weight 52.163 kg 12/04/16 04:24 12/04/16 04:24 EKG Interpretations (text) EKG shows normal sinus rhythm with no acute changes. Assessment and Plan Plan: Assessment and plan #1 acute respiratory distress secondary to systolic heart failure acute on chronic. Echo this admission reveals severely impaired left ventricular systolic function. Combination also of possible pneumonia and COPD exacerbation. Recommend to diurese the patient and treat with antibiotics. #2 recent coronary artery bypass grafting surgery and mitral valve and tricuspid valve repair at [facility], we will obtain records #3 hypertension #4 hyperlipidemia #5 nicotine dependence #6 COPD #7 PAD with prior peripheral intervention #8Coronary artery disease with prior stent placements Plan We will change her Lasix to IV Lasix, diuresis the patient. Continue IV antibiotics. Once the patient's blood pressure is stable we will also initiate an SHAYLA inhibitor. Monitor daily lytes BUN and creatinine, and daily weights. DNP note has been reviewed, I agree with a documented findings and plan of care. Patient was seen and examined.
--- NOTE | 2016-12-04 11:39 | P.CNPUL ---
History of Present Illness Consult date: 12/04/16 Requesting physician: Duarte Figueredo Jr Reason for consult: dyspnea Chief complaint: Shortness of breath History of present illness: This is a 61-year-old female patient who follows with Dr. Figueredo is her primary care physician. She has a history of hyperlipidemia, hypertension, previous coronary artery disease with stenting of the RCA, congestive heart failure, secondary pulmonary hypertension, ischemic cardiomyopathy, iliac stenosis with bilateral stents, oxygen dependent chronic obstructive pulmonary disease, chronic and ongoing tobacco dependence. She had been seen and evaluated by Dr. Dr. Cardoso in July of this year when she was admitted for COPD exacerbation. According to the patient's she had been admitted recently to [facility] for 8 days. During that time they found her to have significant coronary artery disease and 2 bad valves. She was discharged and returned on 11/22/2016 electively for coronary artery bypass grafting 4 and 2 valve repairs again according to the . No documents are available here. She was just discharged yesterday around 5 PM after a follow-up echocardiogram. He states she was doing fairly well and until approximately 2: 30 this morning where she developed increasing shortness of breath and requested EMS be called. This was rather an acute onset. Her chest x-ray revealed a left base consolidation suspicious for pneumonitis and a small left pleural effusion. A CT angiogram ruled out pulmonary embolism. There is significant emphysema changes and bibasilar airspace disease worse on the left compared to the right. There is also bilateral pleural effusions again larger on the left versus the right. There is evidence of cardiomegaly. She is seen today in consultation on the selective care unit. She is currently on BiPAP 12/ 5 at 50% FiO2. She is quite fatigued and difficult to arouse. Arterial blood gases on 100% FiO2 revealed a PaO2 of 342, pCO2 59 and a pH of 7.25. She has been afebrile. Hemodynamically stable. WBC 28.4, hemoglobin 9.9, platelet count 920,000, d-dimer 9.03, potassium 5.9, creatinine 0.68, AST 97, ALT is 66 and alk phos of 275 reporting 0.413, proBNP 9720. She has been initiated on bronchodilators, Symbicort, Zosyn and Levaquin. She is also on a heparin drip. Review of Systems ROS unobtainable: due to mental status Past Medical History Past Medical History: Coronary Artery Disease (CAD), Cancer, COPD, GERD/Reflux, Hyperlipidemia, Hypertension, Myocardial Infarction ([place]), Pneumonia, Vascular Disorder Additional Past Medical History / Comment(s): COPD, chronic hypoxic respiratory failure, coronary artery disease with previous coronary intervention and PCI and stenting of RCA, CHF with significant degree of secondary pulmonary hypertension, ischemic cardiac myopathy, celiac disease, breast cancer involving the right breast with previous lumpectomy followed by radiation therapy, osteoporosis, hypertension, hyperlipidemia, peripheral vascular disease Last Myocardial Infarction Date:: 2014 History of Any Multi-Drug Resistant Organisms: None Reported Past Surgical History: Breast Surgery, Section, Heart Catheterization With Stent, Orthopedic Surgery Additional Past Surgical History / Comment(s): R breast lumpectomy, 2001 CARDIAC STENTS X4, 2014 PTCA, WRIST SX X3, D&C, 11-01-14 AORTAGRAM W/RUNOFF, CECILIO ILIAC STENTS Past Anesthesia/Blood Transfusion Reactions: No Reported Reaction Date of Last Stent Placement:: 2001 Past Psychological History: Anxiety, Depression Smoking Status: Current every day smoker Past Alcohol Use History: None Reported Past Drug Use History: None Reported - Past Family History Mother Family Medical History: Diabetes Mellitus Additional Family Medical History / Comment(s): HEART ISSSUES Father Family Medical History: Blood Disorder Additional Family Medical History / Comment(s): HEMACHROMATOSIS Medications and Allergies Home Medications Medication Instructions Recorded Confirmed Type ALPRAZolam [Xanax] 0.5 mg PO HS PRN 06/23/14 08/05/16 History Gabapentin 400 mg PO BID 06/24/14 08/05/16 History Hydrocodone/Acetaminophen 1 tab PO TID PRN 06/24/14 08/05/16 History [Hydrocodone/Acetaminophen 10-325] Cyanocobalamin [Vitamin B-12] 4,000 mcg PO DAILY@1500 07/21/14 08/05/16 History Multivitamins, Thera [Multivitamin 1 tab PO DAILY 07/21/14 08/05/16 History (formulary)] Albuterol Nebulized [Ventolin 2.5 mg INHALATION RT-QID 10/29/14 08/05/16 History Nebulized] Alendronate Sodium [Fosamax] 70 mg PO WE 10/29/14 08/05/16 History PARoxetine HCL 60 mg PO DAILY 10/29/14 08/05/16 History Primidone [Mysoline] 50 mg PO BID 10/29/14 08/05/16 History buPROPion SR [Wellbutrin SR] 150 mg PO DAILY 10/29/14 08/05/16 History Aspirin 81 mg PO Q48H 09/17/15 08/05/16 History Spironolactone [Aldactone] 12.5 mg PO DAILY 09/17/15 08/05/16 History Tiotropium [place] [Spiriva] 18 mcg INHALATION RT-DAILY 09/17/15 08/05/16 History Vitamin E 1,000 unit PO DAILY 09/17/15 08/05/16 History Black Cohosh Root [Black Cohosh] 400 mg PO DAILY 08/05/16 08/05/16 History Glycopyrrolate/Formoterol Fum 1 puff INHALATION RT-BID 08/05/16 08/05/16 History [Bevespi Aerosphere Inhaler] Latanoprost Ophth [Xalatan 0.005%] 1 drops LEFT EYE HS 08/05/16 08/05/16 History Oxybutynin Xl [Ditropan XL] 5 mg PO DAILY 08/05/16 08/05/16 History Ranitidine HCl [Zantac] 150 mg PO BID PRN 08/05/16 08/05/16 History Allergies Allergy/AdvReac Type Severity Reaction Status Date / Time No Known Allergies Allergy Verified 12/04/16 04:09 Physical Exam Vitals: Vital Signs Temp Pulse Resp BP Pulse Ox 12/04/16 08:00 78 18 135/76 94 L 12/04/16 07:51 90 L 12/04/16 07:00 76 20 131/71 94 L 12/04/16 06:00 77 22 113/68 98 12/04/16 05:29 79 24 116/66 98 12/04/16 04:55 82 12/04/16 04:38 87 35 H 138/69 99 12/04/16 04:37 87 12/04/16 04:17 94 42 H 166/94 94 L 12/04/16 04:09 96.7 F L 98 40 H 170/93 95 Intake and Output 12/03/16 12/04/16 12/04/16 22:59 06:59 14:59 Other: # Voids 1 Weight 52.163 kg GENERAL EXAM: Drowsy on BiPAP, comfortable in no apparent distress. HEAD: Normocephalic. EYES: Normal reaction of pupils, equal size. NOSE: Clear with pink turbinates. THROAT: No erythema or exudates. NECK: No masses, no JVD. CHEST: Sternal incision clean dry well approximated. LUNGS: Equal air entry with bibasilar crackles. More so on the left.. CVS: S1 and S2 normal with no audible murmurs, regular rhythm. ABDOMEN: No hepatosplenomegaly, normal bowel sounds, no guarding or rigidity. SPINE: No scoliosis or deformity SKIN: No rashes CENTRAL NERVOUS SYSTEM: No focal deficits, tone is normal in all 4 extremities. Extremities: There is 1-2+ lower extremity peripheral edema, multiple areas of ecchymosis. No clubbing, no cyanosis. Peripheral pulses are intact. Results - Laboratory Findings CBC and BMP: 12/04/16 04:24 12/04/16 04:24 ABG ABG pH 7.25 (7.35-7.45) L 12/04/16 04:13 ABG pCO2 59 mmHg (35-45) H 12/04/16 04:13 ABG pO2 342 mmHg (83-108) H 12/04/16 04:13 ABG O2 Saturation 100.0 % (94-97) H 12/04/16 04:13 PT/INR, D-dimer PT 10.4 sec (9.0-12.0) 12/04/16 04:24 INR 1.0 (<1.1) 12/04/16 04:24 D-Dimer 9.03 mg/L FEU (<0.60) H 12/04/16 04:24 Abnormal lab findings: Abnormal Labs 12/04/16 12/04/16 12/04/16 04:13 04:24 04:24 WBC 28.4 H* RBC 3.43 L Hgb 9.9 L MCHC 29.0 L RDW 19.7 H Plt Count 920 H* Neutrophils # 23.1 H Monocytes # 2.0 H D-Dimer ABG pH 7.25 L ABG pCO2 59 H ABG pO2 342 H ABG Total CO2 27 H ABG O2 Saturation 100.0 H Potassium BUN Glucose AST ALT Alkaline Phosphatase Troponin I 0.413 H* 12/04/16 12/04/16 04:24 04:24 WBC RBC Hgb MCHC RDW Plt Count Neutrophils # Monocytes # D-Dimer 9.03 H ABG pH ABG pCO2 ABG pO2 ABG Total CO2 ABG O2 Saturation Potassium 5.9 H BUN 20 H Glucose 199 H AST 97 H ALT 66 H Alkaline Phosphatase 275 H Troponin I - Diagnostic Findings Chest x-ray: image reviewed CT scan - chest: image reviewed Assessment and Plan Plan: Impression: #1 Acute hypoxic/hypercapnic respiratory failure secondary to an acute exacerbation of suspected systolic congestive heart failure, left lower lobe infiltrate/pneumonitia, hospital-acquired, acute exacerbation of severe oxygen dependent chronic obstructive pulmonary disease, pulmonary hypertension. #2 Coronary artery disease status post coronary artery bypass grafting 4 and valve repair 2 done on 11/22/2016 at [facility], discharged yesterday afternoon. No records available currently. #3 Prior history of coronary artery disease with stenting to the RCA. #4 Severe oxygen dependent chronic obstructive pulmonary disease with chronic hypoxic respiratory failure. #5 Chronic tobacco dependence of greater than 40 years of greater than 1 pack per day, quit 6 weeks ago. #6 History of pulmonary hypertension. #7 she hypertension. #8 Hyperlipidemia. #9 Peripheral vascular disease with previous stenting of the bilateral iliacs. #10 History of anxiety/depression. #11 Leukocytosis. #12 Polycythemia. Plan: The patient was seen and evaluated by Dr. Jiménez. Her chest x-ray, CT angiogram and labs were reviewed. We'll continue to utilize the BiPAP throughout the evenings and during the day as necessary. We'll continue with bronchodilators, change the Symbicort to Pulmicort and Perforomist, continue antibiotics in the form of Zosyn and Levaquin. Continue diuretics. She is on a heparin drip. Cardiology is consulted as well. We will continue to follow and make further recommendations based on her clinical status. Time with Patient: Greater than 30
--- NOTE | 2016-12-04 12:53 | P.HPIM ---
History of Present Illness H&P Date: 12/04/16 Kasandra is a 61-year-old woman who was evaluated in the emergency room at [facility] for dyspnea and altered mental status. Kasandra underwent open heart surgery last Tuesday including 2 valve replacements and quadruple bypass was discharged from [facility] yesterday apparently in stable condition and she is now currently on BiPAP, in what appears to be a critical state. Patient has a known history of oxygen and requiring COPD, history of heavy cigarette smoking and only quit within the last 6 months, CT was negative for pulmonary embolus, white count was elevated 28,000 which is probably reactive troponin was 0.413 with a beta natriuretic protein of 9720. Patient has a history of hyperlipidemia, hypertension, previous coronary artery disease with facet tenting of the RCA, congestive heart failure, secondary pulmonary hypertension ischemic cardiac cardiomyopathy iliac stenosis with bilateral stents oxygen dependent chronic obstructive pulmonary disease and chronic ongoing tobacco dependence. She had also been seen and evaluated by Dr. Cardoso in July and recently admitted to [facility] for 8 days during that time they found her to have significant coronary artery disease with 2 bad valves she was discharged at that time returned on 11/22/2016 prior to this she would actually presented to my office and underwent preop physical and clearance for elective coronary artery bypass grafting 4 in 2 valve repairs according to the . As stated she was discharged yesterday around 5 PM after her follow-up electrocardiogram. He states she was doing fairly well until approximately 2:30 this morning where she developed increasing shortness of breath and requested EMS be called. Her chest x-ray revealed left base consolidation suspicious for pneumonitis and a small left pleural effusion. A CT angiogram ruled out PE. There is significant emphysema changes and bibasilar airspace worse on left than the right. Review of Systems Constitutional: Reports fatigue, Reports lethargy Ears, nose, mouth and throat: Reports as per HPI Cardiovascular: Reports rapid heart beat, Reports shortness of breath Respiratory: Reports dyspnea (Great) Gastrointestinal: Reports as per HPI Genitourinary: Reports as per HPI Menstruation: Reports as per HPI Musculoskeletal: Reports as per HPI Integumentary: Reports as per HPI, Reports unusual bruising (Associated with recent open heart surgery) Neurological: Reports as per HPI Psychiatric: Reports as per HPI Endocrine: Reports as per HPI Past Medical History Past Medical History: Coronary Artery Disease (CAD), Cancer, COPD, GERD/Reflux, Hyperlipidemia, Hypertension, Myocardial Infarction (IL), Pneumonia, Vascular Disorder Additional Past Medical History / Comment(s): COPD, chronic hypoxic respiratory failure, coronary artery disease with previous coronary intervention and PCI and stenting of RCA, CHF with significant degree of secondary pulmonary hypertension, ischemic cardiac myopathy, celiac disease, breast cancer involving the right breast with previous lumpectomy followed by radiation therapy, osteoporosis, hypertension, hyperlipidemia, peripheral vascular disease Last Myocardial Infarction Date:: 2014 History of Any Multi-Drug Resistant Organisms: None Reported Past Surgical History: Breast Surgery, Section, Heart Catheterization With Stent, Orthopedic Surgery Additional Past Surgical History / Comment(s): R breast lumpectomy, 2001 CARDIAC STENTS X4, 2014 PTCA, WRIST SX X3, D&C, 11-01-14 AORTAGRAM W/RUNOFF, CECILIO ILIAC STENTS Past Anesthesia/Blood Transfusion Reactions: No Reported Reaction Date of Last Stent Placement:: 2001 Past Psychological History: Anxiety, Depression Smoking Status: Current every day smoker Past Alcohol Use History: None Reported Past Drug Use History: None Reported - Past Family History Mother Family Medical History: Diabetes Mellitus Additional Family Medical History / Comment(s): HEART ISSSUES Father Family Medical History: Blood Disorder Additional Family Medical History / Comment(s): HEMACHROMATOSIS Medications and Allergies Home Medications Medication Instructions Recorded Confirmed Type ALPRAZolam [Xanax] 0.5 mg PO HS PRN 06/23/14 08/05/16 History Gabapentin 400 mg PO BID 06/24/14 08/05/16 History Hydrocodone/Acetaminophen 1 tab PO TID PRN 06/24/14 08/05/16 History [Hydrocodone/Acetaminophen 10-325] Cyanocobalamin [Vitamin B-12] 4,000 mcg PO DAILY@1500 07/21/14 08/05/16 History Multivitamins, Thera [Multivitamin 1 tab PO DAILY 07/21/14 08/05/16 History (formulary)] PARoxetine HCL 60 mg PO DAILY 10/29/14 08/05/16 History Primidone [Mysoline] 50 mg PO BID 10/29/14 08/05/16 History buPROPion SR [Wellbutrin SR] 150 mg PO DAILY 10/29/14 08/05/16 History Aspirin 81 mg PO Q48H 09/17/15 08/05/16 History Tiotropium [place] [Spiriva] 18 mcg INHALATION RT-DAILY 09/17/15 08/05/16 History Vitamin E 1,000 unit PO DAILY 09/17/15 08/05/16 History Latanoprost Ophth [Xalatan 0.005%] 1 drops LEFT EYE HS 08/05/16 08/05/16 History Ranitidine HCl [Zantac] 150 mg PO BID PRN 08/05/16 08/05/16 History Albuterol Nebulized [Ventolin 2.5 mg INHALATION RT-QID 12/04/16 12/04/16 History Nebulized] Calcium Carbonate [Calcium] 600 mg PO DAILY 12/04/16 12/04/16 History Lisinopril [Zestril] 10 mg PO DAILY 12/04/16 12/04/16 History Magnesium Gluconate [Magonate] 1,000 mg PO DAILY 12/04/16 12/04/16 History Metoprolol Tartrate [Lopressor] 50 mg PO TID 12/04/16 12/04/16 History Allergies Allergy/AdvReac Type Severity Reaction Status Date / Time No Known Allergies Allergy Verified 12/04/16 11:56 Physical Exam Osteopathic Statement: *. No significant issues noted on an osteopathic structural exam other than those noted in the History and Physical/Consult. Vitals: Vital Signs Temp Pulse Pulse Resp BP BP Pulse Ox 12/04/16 08:00 78 18 135/76 94 L 12/04/16 07:51 90 L 12/04/16 07:32 80 26 H 126/59 98 12/04/16 07:00 76 20 131/71 94 L 12/04/16 06:00 77 22 113/68 98 12/04/16 05:29 79 24 116/66 98 12/04/16 04:55 82 12/04/16 04:38 87 35 H 138/69 99 12/04/16 04:37 87 12/04/16 04:17 94 42 H 166/94 94 L 12/04/16 04:09 96.7 F L 98 40 H 170/93 95 Intake and Output 12/03/16 12/04/16 12/04/16 22:59 06:59 14:59 Other: # Voids 1 Weight 52.163 kg 52.163 kg Patient Weight 12/05/16 06:59 Weight 52.163 kg General: Currently on BiPAP, sleeping but arousable HEENT: [PERRL. EOMI. No pharyngeal erythema or exudate.] Neck: [No adenopathy.] Cardiac: [Heart regular in rate and rhythm. No S3. No S4. No clicks, rubs. No murmur.] Lungs: [Clear to auscultation bilaterally.] Midline Surgical incision appears to be clean and dry Abdomen: [No mass. No organomegaly. Bowel sounds presnt and normoactive in all 4 quadrants.] Extremes: [No edema no cyanosis no claudication normal pulses] multiple bruising from recent open heart surgery : [] Musculoskeletal: [No joint erythema, edema or tenderness.] Skin: [No rash.] Neurologic: [No lateralizing deficits. CN II - XII grossly intact.] Lymphatic: [No adenopathy.] Results CBC & Chem 7: 12/04/16 04:24 12/04/16 04:24 Labs: Abnormal Lab Results - Last 24 Hours (Table) 12/04/16 12/04/16 12/04/16 Range/Units 04:13 04:24 04:24 WBC 28.4 H* (3.8-10.6) k/uL RBC 3.43 L (3.80-5.40) m/uL Hgb 9.9 L (11.4-16.0) gm/dL MCHC 29.0 L (31.0-37.0) g/dL RDW 19.7 H (11.5-15.5) % Plt Count 920 H* (150-450) k/uL Neutrophils # 23.1 H (1.3-7.7) k/uL Monocytes # 2.0 H (0-1.0) k/uL D-Dimer (<0.60) mg/L FEU ABG pH 7.25 L (7.35-7.45) ABG pCO2 59 H (35-45) mmHg ABG pO2 342 H (83-108) mmHg ABG Total CO2 27 H (19-24) mmol/L ABG O2 Saturation 100.0 H (94-97) % Potassium (3.5-5.1) mmol/L BUN (7-17) mg/dL Glucose (74-99) mg/dL AST (14-36) U/L ALT (9-52) U/L Alkaline Phosphatase (38-126) U/L Troponin I 0.413 H* (0.000-0.034) ng/mL 12/04/16 12/04/16 Range/Units 04:24 04:24 WBC (3.8-10.6) k/uL RBC (3.80-5.40) m/uL Hgb (11.4-16.0) gm/dL MCHC (31.0-37.0) g/dL RDW (11.5-15.5) % Plt Count (150-450) k/uL Neutrophils # (1.3-7.7) k/uL Monocytes # (0-1.0) k/uL D-Dimer 9.03 H (<0.60) mg/L FEU ABG pH (7.35-7.45) ABG pCO2 (35-45) mmHg ABG pO2 (83-108) mmHg ABG Total CO2 (19-24) mmol/L ABG O2 Saturation (94-97) % Potassium 5.9 H (3.5-5.1) mmol/L BUN 20 H (7-17) mg/dL Glucose 199 H (74-99) mg/dL AST 97 H (14-36) U/L ALT 66 H (9-52) U/L Alkaline Phosphatase 275 H (38-126) U/L Troponin I (0.000-0.034) ng/mL Chest x-ray: report reviewed, image reviewed CT scan - abdomen: report reviewed Thrombosis Risk Factor Assmnt - Choose All That Apply Any of the Below Risk Factors Present?: Yes Each Factor Represents 1 point: Abnormal pulmonary function (COPD), History of prior major surgery (<1month) Each Risk Factor Represents 2 Points: Age 61-74 years Thrombosis Risk Factor Assessment Total Risk Factor Score: 4 Thrombosis Risk Factor Assessment Level: Moderate Risk Assessment and Plan Plan: Assessment and plan: #1 acute hypoxic/hypercapnic posterior failure secondary to acute exacerbation of systolic heart failure left lower lobe infiltrate, hospital-acquired acute exacerbation of severe oxygen-dependent chronic obstructive pulmonary disease, pulmonary hypertension #2 coronary artery disease status post coronary artery bypass grafting 4 valve repair 2 done on 11/22/2016 at [facility], discharged yesterday afternoon approximately 5:30 majority of the history was obtained from the which is scanty #3 prior history of coronary artery disease with stenting to the RCA #4 Golds grade 4 oxygen-dependent chronic obstructive pulmonary disease with chronic hypoxic respiratory failure #5 chronic tobacco dependence of 40+ years more than 1 pack per day patient states she quit 6 weeks ago #6 history of pulmonary hypertension patient uses BiPAP at home 7 history of hyperlipidemia #8 significant leukocytosis reported at [facility] as well #9 polycythemia probably secondary to cigarette smoking #[address] Montero, as well as Dr. Tino Dhaliwal: Continue BiPAP, continue antibiotics, continue diuretics, cardiology consult pulmonary consult cardiovascular surgery consult Time with Patient: Greater than 30
[2016-12-04 13:06] LABS: Appearance,Urine Clear (Clear); Bilirubin,Urine Negative (Negative); Glucose,Urine (UA) Negative (Negative); Ketones,Urine Negative (Negative); Leukocyte Esterase,Urine Negative (Negative); Nitrite,Urine Negative (Negative); PH, Urine 5.5 (5.0-8.0); Protein,Urine Trace (Negative); Specific Gravity,Urine 1.012 (1.001-1.035); UA Billing (MACRO vs. MICRO) CHEM; Urobilinogen,Urine <2.0 mg/dL (<2.0)
--- NOTE | 2016-12-04 13:09 | P.GSCN ---
History of Present Illness Consult date: 12/04/16 Reason for Consult: Status post recent coronary artery bypass grafting, mitral valve repair and tricuspid valve repair by Dr. Galan at [facility] on 11/22/2016 Requesting physician: Duarte Figueredo Jr History of present illness: Patient is known to our service. She is a 61 years old lady admitted last night with an acute episode of dyspnea and altered mental status. Patient is status post coronary artery bypass grafting, mitral valve repair and tricuspid valve repair performed by Dr. Galan at [facility] on 11/22/2016. Patient is a known COPD or with oxygen dependency. Patient was discharged yesterday from [facility] however had an acute episode of dyspnea with Dr. mental status prompting readmission to [facility]. CTA of the chest ruled out any pulmonary embolism. Patient denies chest pain Patient ejection fraction before discharge from [facility] was 45%. Her hospital course was dominated by leukocytosis that we concluded was reactive. It was around 19,000 upon discharge coming down from 24,000. She never had fever. All other cultures were negative. She had required thoracocentesis at [facility] postoperatively. Review of Systems - Constitutional Reports fatigue, Reports lethargy - Cardiovascular Reports shortness of breath - Respiratory Reports dyspnea, Reports home oxygen - Gastrointestinal Reports as per HPI - Genitourinary Genitourinary: Denies dysuria, Denies hematuria - Neurological Neurologic Comment(s): Bit sleepy but alert oriented 3 Denies headaches, Denies syncope - Psychiatric Reports as per HPI Past Medical History Past Medical History: Coronary Artery Disease (CAD), Cancer, COPD, GERD/Reflux, Hyperlipidemia, Hypertension, Myocardial Infarction (IL), Pneumonia, Vascular Disorder Additional Past Medical History / Comment(s): COPD, chronic hypoxic respiratory failure, coronary artery disease with previous coronary intervention and PCI and stenting of RCA, CHF with significant degree of secondary pulmonary hypertension, ischemic cardiac myopathy, celiac disease, breast cancer involving the right breast with previous lumpectomy followed by radiation therapy, osteoporosis, hypertension, hyperlipidemia, peripheral vascular disease Last Myocardial Infarction Date:: 2014 History of Any Multi-Drug Resistant Organisms: None Reported Past Surgical History: Breast Surgery, Section, Heart Catheterization With Stent, Orthopedic Surgery Additional Past Surgical History / Comment(s): R breast lumpectomy, 2002 CARDIAC STENTS X4, 2015 PTCA, WRIST SX X3, D&C, 5-22-15 AORTAGRAM W/RUNOFF, CECILIO ILIAC STENTS Past Anesthesia/Blood Transfusion Reactions: No Reported Reaction Date of Last Stent Placement:: 2001 Past Psychological History: Anxiety, Depression Smoking Status: Current every day smoker Past Alcohol Use History: None Reported Past Drug Use History: None Reported - Past Family History Mother Family Medical History: Diabetes Mellitus Additional Family Medical History / Comment(s): HEART ISSSUES Father Family Medical History: Blood Disorder Additional Family Medical History / Comment(s): HEMACHROMATOSIS Medications and Allergies Home Medications Medication Instructions Recorded Confirmed Type ALPRAZolam [Xanax] 0.5 mg PO HS PRN 06/23/14 12/04/16 History Gabapentin 400 mg PO BID 06/24/14 12/04/16 History Hydrocodone/Acetaminophen 1 tab PO Q8H PRN 06/24/14 12/04/16 History [Hydrocodone/Acetaminophen 10-325] Cyanocobalamin [Vitamin B-12] 4,000 mcg PO DAILY 07/21/14 12/04/16 History Multivitamins, Thera [Multivitamin 1 tab PO DAILY 07/21/14 12/04/16 History (formulary)] PARoxetine HCL 60 mg PO DAILY 10/29/14 12/04/16 History Primidone [Mysoline] 50 mg PO BID 10/29/14 12/04/16 History buPROPion SR [Wellbutrin SR] 150 mg PO DAILY 10/29/14 12/04/16 History Aspirin 81 mg PO DAILY 09/17/15 12/04/16 History Tiotropium [place] [Spiriva] 18 mcg INHALATION RT-DAILY 09/17/15 12/04/16 History Vitamin E 1,000 unit PO DAILY 09/17/15 12/04/16 History Latanoprost Ophth [Xalatan 0.005%] 1 drops LEFT EYE HS 08/05/16 12/04/16 History Ranitidine HCl [Zantac] 150 mg PO BID PRN 08/05/16 12/04/16 History Albuterol Nebulized [Ventolin 2.5 mg INHALATION RT-QID 12/04/16 12/04/16 History Nebulized] Calcium Carbonate [Calcium] 600 mg PO DAILY 12/04/16 12/04/16 History Lisinopril [Zestril] 10 mg PO DAILY 12/04/16 12/04/16 History Magnesium Gluconate [Magonate] 1,000 mg PO DAILY 12/04/16 12/04/16 History Metoprolol Tartrate [Lopressor] 50 mg PO TID 12/04/16 12/04/16 History Allergies Allergy/AdvReac Type Severity Reaction Status Date / Time No Known Allergies Allergy Verified 12/04/16 11:56 Surgical - Exam Vital Signs Temp Pulse Resp BP Pulse Ox 96.7 F L 98 40 H 170/93 95 12/04/16 04:09 12/04/16 04:09 12/04/16 04:09 12/04/16 04:09 12/04/16 04:09 - General On BiPAP. Bit sleepy. Pale - Neck no masses, trachea midline - Respiratory left: dullness - Cardiovascular No murmur Rhythm: regular Heart Sounds: normal: S1, S2 - Abdomen Abdomen: soft, non tender, no guarding, no rigid, no rebound - Genitourinary Deferred - Rectum Deferred - Neurologic no disoriented, no combative - Musculoskeletal Patient supine at this point - Psychiatric oriented to time, oriented to person, oriented to place, speech is normal, memory intact Results - Labs 12/04/16 04:24 12/04/16 04:24 Abnormal Lab Results - Last 24 Hours (Table) 12/04/16 12/04/16 12/04/16 Range/Units 04:13 04:24 04:24 WBC 28.4 H* (3.8-10.6) k/uL RBC 3.43 L (3.80-5.40) m/uL Hgb 9.9 L (11.4-16.0) gm/dL MCHC 29.0 L (31.0-37.0) g/dL RDW 19.7 H (11.5-15.5) % Plt Count 920 H* (150-450) k/uL Neutrophils # 23.1 H (1.3-7.7) k/uL Monocytes # 2.0 H (0-1.0) k/uL D-Dimer (<0.60) mg/L FEU ABG pH 7.25 L (7.35-7.45) ABG pCO2 59 H (35-45) mmHg ABG pO2 342 H (83-108) mmHg ABG Total CO2 27 H (19-24) mmol/L ABG O2 Saturation 100.0 H (94-97) % Potassium (3.5-5.1) mmol/L BUN (7-17) mg/dL Glucose (74-99) mg/dL AST (14-36) U/L ALT (9-52) U/L Alkaline Phosphatase (38-126) U/L Troponin I 0.413 H* (0.000-0.034) ng/mL 12/04/16 12/04/16 Range/Units 04:24 04:24 WBC (3.8-10.6) k/uL RBC (3.80-5.40) m/uL Hgb (11.4-16.0) gm/dL MCHC (31.0-37.0) g/dL RDW (11.5-15.5) % Plt Count (150-450) k/uL Neutrophils # (1.3-7.7) k/uL Monocytes # (0-1.0) k/uL D-Dimer 9.03 H (<0.60) mg/L FEU ABG pH (7.35-7.45) ABG pCO2 (35-45) mmHg ABG pO2 (83-108) mmHg ABG Total CO2 (19-24) mmol/L ABG O2 Saturation (94-97) % Potassium 5.9 H (3.5-5.1) mmol/L BUN 20 H (7-17) mg/dL Glucose 199 H (74-99) mg/dL AST 97 H (14-36) U/L ALT 66 H (9-52) U/L Alkaline Phosphatase 275 H (38-126) U/L Troponin I (0.000-0.034) ng/mL Diabetes panel 12/04/16 Range/Units 04:24 Sodium 138 (137-145) mmol/L Potassium 5.9 H (3.5-5.1) mmol/L Chloride 101 (98-107) mmol/L Carbon Dioxide 22 (22-30) mmol/L BUN 20 H (7-17) mg/dL Creatinine 0.68 (0.52-1.04) mg/dL Glucose 199 H (74-99) mg/dL Calcium 8.7 (8.4-10.2) mg/dL AST 97 H (14-36) U/L ALT 66 H (9-52) U/L Alkaline Phosphatase 275 H (38-126) U/L Total Protein 6.7 (6.3-8.2) g/dL Albumin 3.8 (3.5-5.0) g/dL Calcium panel 12/04/16 Range/Units 04:24 Calcium 8.7 (8.4-10.2) mg/dL Albumin 3.8 (3.5-5.0) g/dL Pituitary panel 12/04/16 Range/Units 04:24 Sodium 138 (137-145) mmol/L Potassium 5.9 H (3.5-5.1) mmol/L Chloride 101 (98-107) mmol/L Carbon Dioxide 22 (22-30) mmol/L BUN 20 H (7-17) mg/dL Creatinine 0.68 (0.52-1.04) mg/dL Glucose 199 H (74-99) mg/dL Calcium 8.7 (8.4-10.2) mg/dL Adrenal panel 12/04/16 Range/Units 04:24 Sodium 138 (137-145) mmol/L Potassium 5.9 H (3.5-5.1) mmol/L Chloride 101 (98-107) mmol/L Carbon Dioxide 22 (22-30) mmol/L BUN 20 H (7-17) mg/dL Creatinine 0.68 (0.52-1.04) mg/dL Glucose 199 H (74-99) mg/dL Calcium 8.7 (8.4-10.2) mg/dL Total Bilirubin 1.3 (0.2-1.3) mg/dL AST 97 H (14-36) U/L ALT 66 H (9-52) U/L Alkaline Phosphatase 275 H (38-126) U/L Total Protein 6.7 (6.3-8.2) g/dL Albumin 3.8 (3.5-5.0) g/dL - Imaging CT scan - chest: report reviewed, image reviewed Assessment and Plan Plan: 61 years old with the known above comorbidities, status post coronary artery bypass grafting, mitral valve repair and tricuspid valve repair on 11/22/2016 at [facility]. Patient discharged yesterday and readmitted to [facility] with dyspnea. No pulmonary embolism. No overt pleural effusion. Leukocytosis that was worked up at [facility] with no obvious source of infection. Elevated proBNP at around 10,000 and mildly elevated troponins. My feeling is that her current episode is multifactorial mainly related to her COPD and was certainly an element of CHF. No obvious surgical issues. Ejection fraction 45% before discharge from [place]. I don't see a need to transfer the patient [place] especially that she lives close by. Discussed with Dr. Figueredo. Thank you for the privilege of this consult
[2016-12-04] MEDS: FUROSEMIDE 10 MG/ML 4 ML VIAL IV SCH ×2 (18:11→23:58)
[2016-12-04] MEDS: PIPERACILLIN-TAZOBACTAM 3.375 GM in DEXTROSE/WATER 1 50ML.BAG IVPB SCH ×2 (18:24→23:57)
[2016-12-04] MEDS: CYANOCOBALAMIN 500 MCG TAB PO SCH (18:25)
[2016-12-04] MEDS: MULTIVITAMINS, THERA 1 EACH TAB PO SCH (18:25)
[2016-12-04] MEDS: BUDESONIDE 1 MG/2 ML NEBU INHALATION SCH (19:12)
[2016-12-04] MEDS: FORMOTEROL FUMARATE 20 MCG/2 ML NEBU INHALATION SCH (19:12)
[2016-12-04] MEDS ORDERED: IPRATROPIUM-ALBUTEROL 3 ML NEB INHALATION PRN (19:26)
[2016-12-04] MEDS: SPIRONOLACTONE 25 MG TAB PO SCH (22:39)
[2016-12-04] MEDS: LATANOPROST 0.005% OPHTH DROPS 2.5 ML BTL LEFT EYE SCH (23:57)
[2016-12-05] MEDS ORDERED: LEVOFLOXACIN 750MG-D5W PMX 750 MG in DEXTROSE/WATER 1 150ML.BAG IVPB SCH (06:00)
[2016-12-05 06:21] LABS: Anisocytosis Slight; CH 29.5; CHCM 30.2; HCT 28.7 % (34.0-46.0); HDW 3.26; HGB 8.5 gm/dL (11.4-16.0); Hypochromasia Marked; MCH 29.3 pg (25.0-35.0); MCHC 29.6 g/dL (31.0-37.0); MCV 99.1 fL (80.0-100.0); Macrocytosis Moderate; Mean Platelet Volume 6.7; RDW 19.9 % (11.5-15.5); WBC 19.3 k/uL (3.8-10.6); WBC (Perox) 20.17
[2016-12-05 06:55] LABS: Add Differential Manual Differential
[2016-12-05 06:56] LABS: Manual Review Performed; Nucleated Red Blood Cells 0 /100 WBC (0-0); Total Cells Counted 100
[2016-12-05 06:57] LABS: Polychromasia Present; Target Cells Present
--- NOTE | 2016-12-05 07:20 | XR ---
EXAMINATION TYPE: XR chest 1V portable DATE OF EXAM: 12/05/2016 HISTORY: resp distress. REFERENCE: Previous study dated 12/04/2016. FINDINGS: There has been a midline sternotomy. There is left basilar airspace disease. There is a small left effusion. The heart is mildly enlarged. IMPRESSION: 1. CONTINUING LEFT BASILAR AIRSPACE DISEASE. 2. SMALL LEFT EFFUSION. 3. MILD CARDIOMEGALY.
[2016-12-05] MEDS: FORMOTEROL FUMARATE 20 MCG/2 ML NEBU INHALATION SCH ×2 (07:50→19:38)
[2016-12-05] MEDS: IPRATROPIUM-ALBUTEROL 3 ML NEB INHALATION SCH ×4 (07:50→19:38)
[2016-12-05] MEDS: BUDESONIDE 1 MG/2 ML NEBU INHALATION SCH ×2 (07:50→19:38)
[2016-12-05] MEDS ORDERED: buPROPion SR 150 MG TABLET.ER PO ONE (08:00)
[2016-12-05] MEDS ORDERED: GABAPENTIN 400 MG CAP ONE (08:00)
[2016-12-05] MEDS ORDERED: METOPROLOL SUCCINATE (ER) 25 MG TAB.ER.24H PO ONE (08:00)
[2016-12-05] MEDS ORDERED: PRIMIDONE 50 MG TAB ONE (08:00)
[2016-12-05] MEDS ORDERED: OXYBUTYNIN XL 5 MG TAB.ER.24 PO ONE (08:00)
[2016-12-05] MEDS ORDERED: CLOPIDOGREL 75 MG TAB ONE (08:00)
[2016-12-05] MEDS ORDERED: FUROSEMIDE 10 MG/ML 4 ML VIAL ONE (08:00)
[2016-12-05] MEDS ORDERED: PARoxetine 20 MG TAB ONE (08:00)
[2016-12-05] MEDS ORDERED: SPIRONOLACTONE 25 MG TAB ONE (08:00)
[2016-12-05 08:42] LABS: ALT 55 U/L (9-52); AST 39 U/L (14-36); Alkaline Phosphatase 199 U/L (38-126); Anion Gap 8 mmol/L; Blood Urea Nitrogen 21 mg/dL (7-17); Carbon Dioxide 28 mmol/L (22-30); Chloride 101 mmol/L (98-107); Glucose 114 mg/dL (74-99); Non-African American GFR(MDRD) >60 (>60 ml/min/1.73 sqM); Potassium 4.3 mmol/L (3.5-5.1); Sodium 137 mmol/L (137-145); Total Bilirubin 0.9 mg/dL (0.2-1.3); Total Protein 5.4 g/dL (6.3-8.2)
--- NOTE | 2016-12-05 08:58 | P.PN ---
<Kathy Levine - Last Filed: 12/05/16 08:58> Subjective Principal diagnosis: Multivessel coronary artery disease. Hypertension. Hyperlipidemia. COPD with home oxygen dependency. History of pneumonia. Systolic heart failure with secondary pulmonary hypertension. History of an SVT. History of myocardial infarction with stent placement. History of peripheral artery disease with iliac stent placement. History of chronic tobacco abuse. History of right- sided breast cancer with lumpectomy followed by radiation. POD #14 coronary artery bypass graft surgery, left internal mammary artery to the diagonal artery, reverse saphenous vein graft to the left anterior descending artery, reverse saphenous vein graft to the left circumflex artery, and reverse saphenous vein graft to the PDA. Complex mitral valve repair with ring. Tricuspid valve repair with ring. Intraoperative transesophageal echocardiogram. Postoperative left pleural effusion, POD#5 left-sided thoracentesis, and expected outcome of surgery. Patient's currently sitting up in bed in no acute distress. Was on BiPAP overnight, however currently is on nasal cannula and tolerating well. She is currently eating breakfast. States she feels much better than when she came in. Objective - Vital Signs Vital signs: Vital Signs Temp 97.5 F L 12/05/16 04:00 Pulse 80 12/05/16 08:10 Resp 18 12/05/16 04:00 BP 100/55 12/05/16 04:00 Pulse Ox 100 12/05/16 04:00 Intake & Output 12/04/16 12/05/16 12/05/16 18:59 06:59 18:59 Intake Total 614 Output Total 700 Balance -700 614 Weight 52.163 kg 50.2 kg Intake: Intake, IV Titration 614 Amount Heparin Sodium,Porcine/ 224 D5w Pmx 25,000 unit In Dextrose/Water 1 500ml. bag @ 18 UNITS/KG/HR 18. 77 mls/hr IV .Q24H [facility] Rx #:[id number] Piperacillin-Tazobactam 3 150 .375 gm In Dextrose/Water 1 50ml.bag @ 12.5 mls/hr IVPB Q8HR [facility] Rx#: [id number] Sodium Chloride 0.9% 1, 240 000 ml @ 20 mls/hr IV . Q24H [facility] Rx#:[id number] Output: Urine 700 Other: # Voids 2 - Constitutional General appearance: Present: cooperative, no acute distress - Respiratory Details: Lungs sounds diminished bilaterally. Respirations even, nonlabored. Currently on 2 L nasal cannula with oxygen saturation 97%. - Cardiovascular Details: S1, S2 present. Regular rate and rhythm, normal sinus rhythm on telemetry. Sternum stable. Teds currently on. Trace bilateral lower extremity edema present. - Gastrointestinal Gastrointestinal Comment(s): Abdomen soft, nontender, nondistended. Active bowel sounds 4 quadrants. Tolerating diet. - Genitourinary Genitourinary Comment(s): Continues to void clear, yellow urine. - Musculoskeletal Musculoskeletal: Present: strength equal bilaterally - Psychiatric Psychiatric: Present: A&O x's 3, appropriate affect, intact judgment & insight - Allied health notes Allied health notes reviewed: nursing - Labs CBC & Chem 7: 12/05/16 05:44 12/04/16 04:24 Labs: Abnormal Lab Results - Last 24 Hours (Table) 12/04/16 12/04/16 12/05/16 Range/Units 12:42 12:54 05:44 WBC 19.3 H (3.8-10.6) k/uL RBC 2.90 L (3.80-5.40) m/uL Hgb 8.5 L (11.4-16.0) gm/dL Hct 28.7 L (34.0-46.0) % MCHC 29.6 L (31.0-37.0) g/dL RDW 19.9 H (11.5-15.5) % Plt Count 602 H (150-450) k/uL Neutrophils # (Manual) 16.4 H (1.3-7.7) k/uL Monocytes # (Manual) 1.4 H (0-1.0) k/uL APTT 56.5 H (22.0-30.0) sec Urine Protein Trace H (Negative) 12/05/16 Range/Units 05:44 WBC (3.8-10.6) k/uL RBC (3.80-5.40) m/uL Hgb (11.4-16.0) gm/dL Hct (34.0-46.0) % MCHC (31.0-37.0) g/dL RDW (11.5-15.5) % Plt Count (150-450) k/uL Neutrophils # (Manual) (1.3-7.7) k/uL Monocytes # (Manual) (0-1.0) k/uL APTT 35.6 H (22.0-30.0) sec Urine Protein (Negative) - Imaging and Cardiology Chest x-ray: image reviewed Assessment and Plan (1) History of myocardial infarction Status: Acute (2) History of coronary artery stent placement Status: Acute (3) History of peripheral arterial disease Status: Acute (4) Tobacco abuse, in remission Status: Acute (5) Family history of hemochromatosis Status: Acute (6) On home oxygen therapy Status: Acute (7) History of breast cancer Status: Acute (8) Recurrent pleural effusion on left Status: Acute (9) Status post thoracentesis Status: Acute (10) Systolic CHF, acute on chronic Status: Acute (11) Acute exacerbation of chronic obstructive airways disease Status: Acute (12) CAD (coronary artery disease) Status: Chronic (13) Hyperlipidemia Status: Chronic (14) Hypertension Status: Chronic (15) Status post coronary artery bypass graft Status: Acute (16) Status post mitral valve repair Status: Acute (17) Status post tricuspid valve repair Status: Acute Plan: 1. Continue aspirin, statin, Plavix, heparin, beta anyi. 2. Continue diuresis with Lasix, Aldactone. 3. Incentive spirometry ordered. Please encourage incentive spirometry use. 4. Increase activity, ambulate in hallway. Physical therapy ordered. 5. Encourage continued smoking cessation. 6. GI/DVT prophylaxis. 7. Monitor daily labs, x-rays. 8. Heart failure education including daily weight monitoring, low-sodium diet, medication education. 9. More recommendations as patient progresses. Time with Patient: Greater than 30 <Zafar Alexander - Last Filed: 12/05/16 12:06> Subjective In view of recent echo findings of very low EF, patient would benefit from lifevest. Objective - Vital Signs Vital signs: Vital Signs Temp 97.5 F L 12/05/16 04:00 Pulse 84 12/05/16 11:42 Resp 18 12/05/16 08:00 BP 92/53 12/05/16 08:00 Pulse Ox 92 L 12/05/16 08:00 Intake & Output 12/04/16 12/05/16 12/05/16 18:59 06:59 18:59 Intake Total 1114 Output Total 700 Balance -700 1114 Weight 52.163 kg 50.2 kg 50.2 kg Intake: Intake, IV Titration 1114 Amount Heparin Sodium,Porcine/ 724 D5w Pmx 25,000 unit In Dextrose/Water 1 500ml. bag @ 18 UNITS/KG/HR 18. 77 mls/hr IV .Q24H [facility] Rx #:[id number] Piperacillin-Tazobactam 3 150 .375 gm In Dextrose/Water 1 50ml.bag @ 12.5 mls/hr IVPB Q8HR [facility] Rx#: [id number] Sodium Chloride 0.9% 1, 240 000 ml @ 20 mls/hr IV . Q24H [facility] Rx#:[id number] Output: Urine 700 Other: # Voids 2 - Labs CBC & Chem 7: 12/05/16 05:44 12/05/16 05:44 Labs: Abnormal Lab Results - Last 24 Hours (Table) 12/04/16 12/04/16 12/05/16 Range/Units 12:42 12:54 05:44 WBC 19.3 H (3.8-10.6) k/uL RBC 2.90 L (3.80-5.40) m/uL Hgb 8.5 L (11.4-16.0) gm/dL Hct 28.7 L (34.0-46.0) % MCHC 29.6 L (31.0-37.0) g/dL RDW 19.9 H (11.5-15.5) % Plt Count 602 H (150-450) k/uL Neutrophils # (Manual) 16.4 H (1.3-7.7) k/uL Monocytes # (Manual) 1.4 H (0-1.0) k/uL APTT 56.5 H (22.0-30.0) sec BUN (7-17) mg/dL Glucose (74-99) mg/dL AST (14-36) U/L ALT (9-52) U/L Alkaline Phosphatase (38-126) U/L Troponin I (0.000-0.034) ng/mL Total Protein (6.3-8.2) g/dL Albumin (3.5-5.0) g/dL Urine Protein Trace H (Negative) 12/05/16 12/05/16 12/05/16 Range/Units 05:44 05:44 05:44 WBC (3.8-10.6) k/uL RBC (3.80-5.40) m/uL Hgb (11.4-16.0) gm/dL Hct (34.0-46.0) % MCHC (31.0-37.0) g/dL RDW (11.5-15.5) % Plt Count (150-450) k/uL Neutrophils # (Manual) (1.3-7.7) k/uL Monocytes # (Manual) (0-1.0) k/uL APTT 35.6 H (22.0-30.0) sec BUN 21 H (7-17) mg/dL Glucose 114 H (74-99) mg/dL AST 39 H (14-36) U/L ALT 55 H (9-52) U/L Alkaline Phosphatase 199 H (38-126) U/L Troponin I 0.265 H* (0.000-0.034) ng/mL Total Protein 5.4 L (6.3-8.2) g/dL Albumin 2.9 L (3.5-5.0) g/dL Urine Protein (Negative)
--- NOTE | 2016-12-05 10:44 | P.PN ---
Subjective Principal diagnosis: Coronary artery disease, multivessel. Hypertension, hyperlipidemia, oxygen dependent COPD. History of pneumonia, systolic heart failure with secondary pulmonary hypertension history of SVT. History of myocardial infarction with stent placement. History of peripheral artery disease with stent placement in the iliac, history of chronic tobacco use. History of right-sided breast cancer . Postop day #14 four-vessel coronary artery bypass graft complex mitral valve repair with ring tricuspid valve repair with ring and intraoperative KEVEN. Patient is currently sitting up in bed in no acute distress. Remained on BiPAP overnight, patient is now on nasal cannula and tolerating well. Eating breakfast, feeling much better than when she came in. Objective - Vital Signs Vital signs: Vital Signs Temp 97.5 F L 12/05/16 04:00 Pulse 80 12/05/16 08:10 Resp 18 12/05/16 08:00 BP 92/53 12/05/16 08:00 Pulse Ox 92 L 12/05/16 08:00 Intake & Output 12/04/16 12/05/16 12/05/16 18:59 06:59 18:59 Intake Total 1114 Output Total 700 Balance -700 1114 Weight 52.163 kg 50.2 kg 50.2 kg Intake: Intake, IV Titration 1114 Amount Heparin Sodium,Porcine/ 724 D5w Pmx 25,000 unit In Dextrose/Water 1 500ml. bag @ 18 UNITS/KG/HR 18. 77 mls/hr IV .Q24H [facility] Rx #:[id number] Piperacillin-Tazobactam 3 150 .375 gm In Dextrose/Water 1 50ml.bag @ 12.5 mls/hr IVPB Q8HR [facility] Rx#: [id number] Sodium Chloride 0.9% 1, 240 000 ml @ 20 mls/hr IV . Q24H [facility] Rx#:[id number] Output: Urine 700 Other: # Voids 2 - Exam General: [Patient awake, alert and oriented times 3. Patient in no acute distress.] HEENT: [PERRL. EOMI. No pharyngeal erythema or exudate.] Neck: [No adenopathy.] Cardiac: [Heart regular in rate and rhythm. No S3. No S4. No clicks, rubs. No murmur. Mid sternal surgical incision clean and dry Lungs: [Clear to auscultation bilaterally.] Abdomen: [No mass. No organomegaly. Bowel sounds presnt and normoactive in all 4 quadrants.] Extremes: [No edema no cyanosis no claudication normal pulses] : [] Musculoskeletal: [No joint erythema, edema or tenderness.] Skin: [No rash.] Neurologic: [No lateralizing deficits. CN II - XII grossly intact.] Lymphatic: [No adenopathy.] - Labs CBC & Chem 7: 12/05/16 05:44 12/05/16 05:44 Labs: Abnormal Lab Results - Last 24 Hours (Table) 12/04/16 12/04/16 12/05/16 Range/Units 12:42 12:54 05:44 WBC 19.3 H (3.8-10.6) k/uL RBC 2.90 L (3.80-5.40) m/uL Hgb 8.5 L (11.4-16.0) gm/dL Hct 28.7 L (34.0-46.0) % MCHC 29.6 L (31.0-37.0) g/dL RDW 19.9 H (11.5-15.5) % Plt Count 602 H (150-450) k/uL Neutrophils # (Manual) 16.4 H (1.3-7.7) k/uL Monocytes # (Manual) 1.4 H (0-1.0) k/uL APTT 56.5 H (22.0-30.0) sec BUN (7-17) mg/dL Glucose (74-99) mg/dL AST (14-36) U/L ALT (9-52) U/L Alkaline Phosphatase (38-126) U/L Troponin I (0.000-0.034) ng/mL Total Protein (6.3-8.2) g/dL Albumin (3.5-5.0) g/dL Urine Protein Trace H (Negative) 12/05/16 12/05/16 12/05/16 Range/Units 05:44 05:44 05:44 WBC (3.8-10.6) k/uL RBC (3.80-5.40) m/uL Hgb (11.4-16.0) gm/dL Hct (34.0-46.0) % MCHC (31.0-37.0) g/dL RDW (11.5-15.5) % Plt Count (150-450) k/uL Neutrophils # (Manual) (1.3-7.7) k/uL Monocytes # (Manual) (0-1.0) k/uL APTT 35.6 H (22.0-30.0) sec BUN 21 H (7-17) mg/dL Glucose 114 H (74-99) mg/dL AST 39 H (14-36) U/L ALT 55 H (9-52) U/L Alkaline Phosphatase 199 H (38-126) U/L Troponin I 0.265 H* (0.000-0.034) ng/mL Total Protein 5.4 L (6.3-8.2) g/dL Albumin 2.9 L (3.5-5.0) g/dL Urine Protein (Negative) Assessment and Plan Plan: Assessment and plan: #1 acute hypoxic/hypercapnic posterior failure secondary to acute exacerbation of systolic heart failure left lower lobe infiltrate, hospital-acquired acute exacerbation of severe oxygen-dependent chronic obstructive pulmonary disease, pulmonary hypertension #2 coronary artery disease status post coronary artery bypass grafting 4 valve repair 2 done on 11/22/2016 at [facility] [place], discharged yesterday afternoon approximately 5:30 majority of the history was obtained from the which is scanty #3 prior history of coronary artery disease with stenting to the RCA #4 Golds grade 4 oxygen-dependent chronic obstructive pulmonary disease with chronic hypoxic respiratory failure #5 chronic tobacco dependence of 40+ years more than 1 pack per day patient states she quit 6 weeks ago #6 history of pulmonary hypertension patient uses BiPAP at home 7 history of hyperlipidemia #8 significant leukocytosis improved #9 polycythemia probably secondary to cigarette smoking #[address] Montero, as well as Dr. Tino GonzalezP: Continue BiPAP, continue antibiotics, continue diuretics, cardiology consult pulmonary consult cardiovascular surgery consult
[2016-12-05] MEDS: FUROSEMIDE 10 MG/ML 4 ML VIAL IV SCH ×3 (10:51→22:30)
[2016-12-05] MEDS: OXYBUTYNIN XL 5 MG TAB.ER.24 PO SCH (10:52)
[2016-12-05] MEDS: buPROPion SR 150 MG TABLET.ER PO SCH (10:52)
[2016-12-05] MEDS: PARoxetine 20 MG TAB PO SCH (10:52)
[2016-12-05] MEDS: CLOPIDOGREL 75 MG TAB PO SCH (10:52)
[2016-12-05] MEDS: GABAPENTIN 400 MG CAP PO SCH ×2 (10:52→21:52)
[2016-12-05] MEDS: METOPROLOL SUCCINATE (ER) 25 MG TAB.ER.24H PO SCH ×2 (10:52→21:52)
[2016-12-05] MEDS: SPIRONOLACTONE 25 MG TAB PO SCH ×2 (10:53→21:53)
[2016-12-05] MEDS: PRIMIDONE 50 MG TAB PO SCH ×2 (10:53→21:52)
[2016-12-05] MEDS: MULTIVITAMINS, THERA 1 EACH TAB PO SCH (12:09)
--- NOTE | 2016-12-05 12:29 | P.PN ---
Subjective Principal diagnosis: Severe shortness of breath This is 61-year-old female who presented to the hospital with acute respiratory distress, secondary to heart failure and possible pneumonia. She diuresed well through the night last night. Time examination this morning she actually looks like a new woman. She sitting up at the bedside, breathing overall is stable. Her weight is down 2 kg from yesterday. Blood pressure 88/ 50 this morning with a heart rate in the 80s, 93% on 2 L of oxygen. White blood cell count down to 19.3, hemoglobin 8.5, platelet count 602. Potassium 4.3, BUN 21, creatinine 0.6. Liver function tests are also improving today, echocardiogram with Doppler study was performed which revealed an ejection fraction of less than 20%. We'll continue current dose of IV Lasix 40 mg every 8 hourly. We will also add a low-dose of SHAYLA inhibitor today to her medication regime. Continue to monitor daily weights, accurate intake and outputs. Objective - Vital Signs Vital signs: Vital Signs Temp 97.5 F L 12/05/16 04:00 Pulse 88 12/05/16 12:00 Resp 18 12/05/16 12:00 BP 88/52 12/05/16 12:00 Pulse Ox 93 L 12/05/16 12:00 Intake & Output 12/04/16 12/05/16 12/05/16 18:59 06:59 18:59 Intake Total 1114 Output Total 700 Balance -700 1114 Weight 52.163 kg 50.2 kg 50.2 kg Intake: Intake, IV Titration 1114 Amount Heparin Sodium,Porcine/ 724 D5w Pmx 25,000 unit In Dextrose/Water 1 500ml. bag @ 18 UNITS/KG/HR 18. 77 mls/hr IV .Q24H [facility] Rx #:[id number] Piperacillin-Tazobactam 3 150 .375 gm In Dextrose/Water 1 50ml.bag @ 12.5 mls/hr IVPB Q8HR [facility] Rx#: [id number] Sodium Chloride 0.9% 1, 240 000 ml @ 20 mls/hr IV . Q24H [facility] Rx#:[id number] Output: Urine 700 Other: # Voids 2 - Exam PHYSICAL EXAMINATION: HEENT: Head is atraumatic, normocephalic. Pupils equal, round. Neck is supple. There is elevated jugular venous pressure. HEART EXAMINATION: Heart S1 and S2 with systolic murmur is heard. CHEST EXAMINATION: Lungs revealed improvement in air entry bilaterally ABDOMEN: Soft, nontender. Bowel sounds are heard. No organomegaly noted. EXTREMITIES: 1+ peripheral pulses with trace evidence of peripheral edema and no calf tenderness noted. Bilateral ecchymosis NEUROLOGIC patient is awake, alert and oriented -3. . - Labs CBC & Chem 7: 12/05/16 05:44 12/05/16 05:44 Labs: Abnormal Lab Results - Last 24 Hours (Table) 12/04/16 12/04/16 12/05/16 Range/Units 12:42 12:54 05:44 WBC 19.3 H (3.8-10.6) k/uL RBC 2.90 L (3.80-5.40) m/uL Hgb 8.5 L (11.4-16.0) gm/dL Hct 28.7 L (34.0-46.0) % MCHC 29.6 L (31.0-37.0) g/dL RDW 19.9 H (11.5-15.5) % Plt Count 602 H (150-450) k/uL Neutrophils # (Manual) 16.4 H (1.3-7.7) k/uL Monocytes # (Manual) 1.4 H (0-1.0) k/uL APTT 56.5 H (22.0-30.0) sec BUN (7-17) mg/dL Glucose (74-99) mg/dL AST (14-36) U/L ALT (9-52) U/L Alkaline Phosphatase (38-126) U/L Troponin I (0.000-0.034) ng/mL Total Protein (6.3-8.2) g/dL Albumin (3.5-5.0) g/dL Urine Protein Trace H (Negative) 12/05/16 12/05/16 12/05/16 Range/Units 05:44 05:44 05:44 WBC (3.8-10.6) k/uL RBC (3.80-5.40) m/uL Hgb (11.4-16.0) gm/dL Hct (34.0-46.0) % MCHC (31.0-37.0) g/dL RDW (11.5-15.5) % Plt Count (150-450) k/uL Neutrophils # (Manual) (1.3-7.7) k/uL Monocytes # (Manual) (0-1.0) k/uL APTT 35.6 H (22.0-30.0) sec BUN 21 H (7-17) mg/dL Glucose 114 H (74-99) mg/dL AST 39 H (14-36) U/L ALT 55 H (9-52) U/L Alkaline Phosphatase 199 H (38-126) U/L Troponin I 0.265 H* (0.000-0.034) ng/mL Total Protein 5.4 L (6.3-8.2) g/dL Albumin 2.9 L (3.5-5.0) g/dL Urine Protein (Negative) Assessment and Plan Plan: Assessment and plan #1 acute respiratory distress secondary to systolic heart failure acute on chronic. Echo this admission reveals severely impaired left ventricular systolic function. Combination also of possible pneumonia and COPD exacerbation. Recommend to diurese the patient and treat with antibiotics. #2 recent coronary artery bypass grafting surgery and mitral valve and tricuspid valve repair at [facility], we will obtain records #3 hypertension #4 hyperlipidemia #5 nicotine dependence #6 COPD #7 PAD with prior peripheral intervention #8Coronary artery disease with prior stent placements Plan We'll continue current dose of IV Lasix. We will also add a small dose of SHAYLA inhibitor to her medication regime. DNP note has been reviewed, I agree with a documented findings and plan of care. Patient was seen and examined.
--- NOTE | 2016-12-05 14:23 | PN ---
This 61-year-old female that we saw yesterday in consultation with acute hypoxemic and hypercapnic respiratory failure. She does have a history of systolic congestive heart failure. In addition, chest x-ray showed small pleural effusions, left greater than right and possible lower lobe pneumonia. She also has a history of severe oxygen-dependent chronic obstructive pulmonary disease from previous heavy tobacco use as well as pulmonary hypertension. She recently underwent bypass grafting x4 as well valve repair x2 at [facility] [place]. She was discharged 2 days ago. Anyway, the patient does seem to be doing relatively better today. In addition, she has a history of CAD, severe oxygen-dependent COPD from chronic tobacco use moderate pulmonary hypertension, hyperlipidemia, essential hypertension, peripheral vascular occlusive disease, anxiety, depression, and polycythemia. The chest x-ray today shows evidence of small left pleural effusion. CT scan was a bit more impressive. I do not know that she actually has a pneumonia per se. She is denying any significant cough or phlegm production. Current vital signs are reviewed and include a temperature which 97.5, heart rate 85, respiratory rate 18, blood pressure 100/55, mean 70 and a saturation in the mid 90s on a couple liters. Appears in no acute distress. Mildly tachypneic. HEENT examination is grossly unremarkable. Mucous membranes are moist. No oral lesions. Neck is supple. Full range of motion. No adenopathy or thyromegaly. Neck veins are flat. Cardiovascular examination reveals regular rhythm and rate. Heart rate mid 80s. No distinct murmur. S1, S2 normal. No S3 or S4. Lungs reveal a few scattered rhonchi. No wheezes or crackles. Breath sounds are slightly diminished throughout. Abdomen is soft. Bowel sounds are heard. Extremities are intact. Minimal to no edema. Skin without rash. ASSESSMENT: 1. Acute hypercapnic respiratory failure, likely multifactorial, in part related to underlying systolic congestive heart failure, possible left lower lobe pneumonia/effusion as well as chronic obstructive pulmonary disease and pulmonary hypertension. 2. Status post recent bypass grafting x4 vessels and valve repair x2 done at [facility] October with recent discharge. 3. History of coronary artery disease with previous stenting. 4. Severe oxygen-dependent COPD from chronic tobacco use. 5. History of pulmonary hypertension. 6. Essential hypertension. 7. Hyperlipidemia. 8. Peripheral vascular occlusive disease. 9. History of anxiety/depression. 10. Mild chronic polycythemia. PLAN: The patient's chest x-ray is not real impressive. Maybe a small left-sided effusion, maybe some atelectasis at the left base. White count 19.3 down from 28.4, hemoglobin 8.5, hematocrit 28.7, platelet count 600,000. PTT is 35.6. Sodium, potassium and chloride, and CO2 all normal. BUN and creatinine were 21 and 0.65, AST and ALT are improved. Alkaline phosphatase is improved. Troponins were 0.413 and 0.265. The rest of her labs look okay. Medications are reviewed. Microbiology thus far negative. Chest x-ray is reviewed. Will continue to follow. Prognosis is guarded. Initially Dr. Figueredo wanted her sent back to [facility], but she is here now and will stay her at the present time.
[2016-12-05] MEDS: HYDROcodone/APAP 10-325MG 1 EACH TAB PO PRN ×2 (16:58→21:59)
[2016-12-05] MEDS: CYANOCOBALAMIN 500 MCG TAB PO SCH (16:59)
[2016-12-05] MEDS: SODIUM CHLORIDE 0.9% 1,000 ML IV SCH (17:00)
[2016-12-05] MEDS: HEPARIN SODIUM,PORCINE/D5W PMX 25,000 UNIT in DEXTROSE/WATER 1 500ML.BAG IV SCH (17:09)
[2016-12-05 18:42] VITALS: RESP 16
[2016-12-05] MEDS: ATORVASTATIN 80 MG TAB PO SCH ×2 (21:51)
[2016-12-05] MEDS: LATANOPROST 0.005% OPHTH DROPS 2.5 ML BTL LEFT EYE SCH (21:52)
[2016-12-05] MEDS: ALPRAZolam 0.5 MG TAB PO PRN (21:59)
[2016-12-06 05:57] LABS: Anisocytosis Slight; Basophils % (A) 0 %; CH 29.3; Eosinophils # (A) 0.4 k/uL (0-0.7); Eosinophils % (A) 2 %; HCT 26.3 % (34.0-46.0); HDW 3.34; HGB 8.4 gm/dL (11.4-16.0); Hypochromasia Marked; Luc # (Auto) 0.37; Luc % (Auto) 2; Lymphocytes # (A) 1.6 k/uL (1.0-4.8); Lymphocytes % (A) 10 %; MCH 30.7 pg (25.0-35.0); MCHC 32.2 g/dL (31.0-37.0); MCV 95.6 fL (80.0-100.0); Macrocytosis Slight; Mean Platelet Volume 6.7; Monocytes # (A) 1.7 k/uL (0-1.0); Monocytes % (A) 10 %; Neutrophils # (A) 13.2 k/uL (1.3-7.7); Neutrophils % (A) 76 %; RBC 2.75 m/uL (3.80-5.40); RDW 19.5 % (11.5-15.5); WBC 17.4 k/uL (3.8-10.6)
[2016-12-06 06:16] LABS: ALT 48 U/L (9-52); AST 28 U/L (14-36); Alkaline Phosphatase 150 U/L (38-126); Anion Gap 8 mmol/L; Blood Urea Nitrogen 24 mg/dL (7-17); Calcium 8.4 mg/dL (8.4-10.2); Carbon Dioxide 33 mmol/L (22-30); Chloride 95 mmol/L (98-107); Glucose 103 mg/dL (74-99); Non-African American GFR(MDRD) >60 (>60 ml/min/1.73 sqM); Potassium 3.7 mmol/L (3.5-5.1); Sodium 136 mmol/L (137-145); Total Bilirubin 0.6 mg/dL (0.2-1.3); Total Protein 5.2 g/dL (6.3-8.2)
[2016-12-06] MEDS: HEPARIN SODIUM,PORCINE/D5W PMX 25,000 UNIT in DEXTROSE/WATER 1 500ML.BAG IV SCH (06:30)
[2016-12-06] MEDS: SODIUM CHLORIDE 0.9% 1,000 ML IV SCH (07:16)
--- NOTE | 2016-12-06 07:23 | XR ---
EXAMINATION TYPE: XR chest 2V DATE OF EXAM: 12/06/2016 COMPARISON: 12/05/2016 HISTORY: Shortness of breath TECHNIQUE: Frontal and lateral views of the chest are obtained. FINDINGS: Scattered senescent parenchymal changes noted. Hyperinflation compatible with COPD. Small left-sided effusion has improved. Improving aeration left lower lobe. Heart size is stable. Mediastinal structures are stable and grossly unremarkable. No evidence for hilar prominence. Degenerative changes dorsal spine. IMPRESSION: 1. Small left-sided effusion has improved. Improving aeration left lower lobe.
[2016-12-06] MEDS: FORMOTEROL FUMARATE 20 MCG/2 ML NEBU INHALATION SCH (08:21)
[2016-12-06] MEDS: IPRATROPIUM-ALBUTEROL 3 ML NEB INHALATION SCH ×2 (08:21→11:19)
[2016-12-06] MEDS: BUDESONIDE 1 MG/2 ML NEBU INHALATION SCH (08:21)
--- NOTE | 2016-12-06 08:30 | P.PN ---
Subjective Principal diagnosis: Multivessel coronary artery disease. Hypertension. Hyperlipidemia. COPD with home oxygen dependency. History of pneumonia. Systolic heart failure with secondary pulmonary hypertension. History of an SVT. History of myocardial infarction with stent placement. History of peripheral artery disease with iliac stent placement. History of chronic tobacco abuse. History of right- sided breast cancer with lumpectomy followed by radiation. POD #15 coronary artery bypass graft surgery, left internal mammary artery to the diagonal artery, reverse saphenous vein graft to the left anterior descending artery, reverse saphenous vein graft to the left circumflex artery, and reverse saphenous vein graft to the PDA. Complex mitral valve repair with ring. Tricuspid valve repair with ring. Intraoperative transesophageal echocardiogram. Postoperative left pleural effusion, POD#6 left-sided thoracentesis, and expected outcome of surgery. Patient's currently sitting up in bed in no acute distress. She is currently eating breakfast. States she feels much better than when she came in and feels ready to go home. Objective - Vital Signs Vital signs: Vital Signs Temp 98.1 F 12/06/16 04:00 Pulse 82 12/06/16 08:23 Resp 16 12/06/16 04:00 BP 84/48 12/06/16 04:00 Pulse Ox 96 12/06/16 08:24 Intake & Output 12/05/16 12/06/16 12/06/16 18:59 06:59 18:59 Intake Total 1534 574.151 Output Total 1900 Balance 1534 -1325.849 Weight 50.2 kg 50.2 kg Intake: Intake, IV Titration 1114 334.151 Amount Heparin Sodium,Porcine/ 724 334.151 D5w Pmx 25,000 unit In Dextrose/Water 1 500ml. bag @ 18 UNITS/KG/HR 18. 77 mls/hr IV .Q24H [facility] Rx #:[id number] Piperacillin-Tazobactam 3 150 .375 gm In Dextrose/Water 1 50ml.bag @ 12.5 mls/hr IVPB Q8HR [facility] Rx#: [id number] Sodium Chloride 0.9% 1, 240 000 ml @ 20 mls/hr IV . Q24H [facility] Rx#:[id number] Oral 420 240 Output: Urine 1900 Other: Voiding Method Toilet # Voids 1 1 # Bowel Movements 0 0 - Constitutional General appearance: Present: cooperative, no acute distress - Respiratory Details: Lungs sounds diminished bilaterally. Respirations even, nonlabored. Currently on 2 L nasal cannula with oxygen saturation 96%. Able to achieve 750 mL on her incentive spirometry. - Cardiovascular Details: S1, S2 present. Regular rate and rhythm, normal sinus rhythm on telemetry. Sternum stable. No edema present. Currently wearing PAOLA hose. - Gastrointestinal Gastrointestinal Comment(s): Abdomen soft, nontender, nondistended. Active bowel sounds 4 quadrants. Tolerating diet. - Genitourinary Genitourinary Comment(s): Continues to void clear, yellow urine. - Integumentary Integumentary Comment(s): Anterior chest incision well approximated. Bilateral lower extremity EVH sites well approximated. - Musculoskeletal Musculoskeletal: Present: gait normal, strength equal bilaterally - Psychiatric Psychiatric: Present: A&O x's 3, appropriate affect, intact judgment & insight - Allied health notes Allied health notes reviewed: nursing - Labs CBC & Chem 7: 12/06/16 05:23 12/06/16 05:23 Labs: Abnormal Lab Results - Last 24 Hours (Table) 12/05/16 12/05/16 12/05/16 Range/Units 05:44 05:44 16:03 WBC (3.8-10.6) k/uL RBC (3.80-5.40) m/uL Hgb (11.4-16.0) gm/dL Hct (34.0-46.0) % RDW (11.5-15.5) % Plt Count (150-450) k/uL Neutrophils # (1.3-7.7) k/uL Monocytes # (0-1.0) k/uL APTT 44.5 H (22.0-30.0) sec Sodium (137-145) mmol/L Chloride (98-107) mmol/L Carbon Dioxide (22-30) mmol/L BUN 21 H (7-17) mg/dL Glucose 114 H (74-99) mg/dL AST 39 H (14-36) U/L ALT 55 H (9-52) U/L Alkaline Phosphatase 199 H (38-126) U/L Troponin I 0.265 H* (0.000-0.034) ng/mL Total Protein 5.4 L (6.3-8.2) g/dL Albumin 2.9 L (3.5-5.0) g/dL 12/06/16 12/06/16 Range/Units 05:23 05:23 WBC 17.4 H (3.8-10.6) k/uL RBC 2.75 L (3.80-5.40) m/uL Hgb 8.4 L (11.4-16.0) gm/dL Hct 26.3 L (34.0-46.0) % RDW 19.5 H (11.5-15.5) % Plt Count 607 H (150-450) k/uL Neutrophils # 13.2 H (1.3-7.7) k/uL Monocytes # 1.7 H (0-1.0) k/uL APTT (22.0-30.0) sec Sodium 136 L (137-145) mmol/L Chloride 95 L (98-107) mmol/L Carbon Dioxide 33 H (22-30) mmol/L BUN 24 H (7-17) mg/dL Glucose 103 H (74-99) mg/dL AST (14-36) U/L ALT (9-52) U/L Alkaline Phosphatase 150 H (38-126) U/L Troponin I (0.000-0.034) ng/mL Total Protein 5.2 L (6.3-8.2) g/dL Albumin 2.8 L (3.5-5.0) g/dL Microbiology - Last 24 Hours (Table) 12/04/16 06:45 Blood Culture - Preliminary Blood No Growth after 24 hours - Imaging and Cardiology Chest x-ray: image reviewed Assessment and Plan (1) History of myocardial infarction Status: Acute (2) History of coronary artery stent placement Status: Acute (3) History of peripheral arterial disease Status: Acute (4) Tobacco abuse, in remission Status: Acute (5) Family history of hemochromatosis Status: Acute (6) On home oxygen therapy Status: Acute (7) History of breast cancer Status: Acute (8) Recurrent pleural effusion on left Status: Acute (9) Status post thoracentesis Status: Acute (10) Systolic CHF, acute on chronic Status: Acute (11) Acute exacerbation of chronic obstructive airways disease Status: Acute (12) CAD (coronary artery disease) Status: Chronic (13) Hyperlipidemia Status: Chronic (14) Hypertension Status: Chronic (15) Status post coronary artery bypass graft Status: Acute (16) Status post mitral valve repair Status: Acute (17) Status post tricuspid valve repair Status: Acute Plan: 1. Continue aspirin, statin, Plavix, heparin, beta anyi. 2. Continue diuresis with Lasix, Aldactone. 3. Encourage incentive spirometry use. 4. Increase activity, ambulate in hallway. Physical therapy following. 5. Encourage continued smoking cessation. 6. GI/DVT prophylaxis. 7. Monitor daily labs, x-rays. 8. Heart failure education including daily weight monitoring, low-sodium diet, medication education. 9. Will need LifeVest at discharge. Discussed with cardiology. Time with Patient: Greater than 30
[2016-12-06] MEDS ORDERED: LISINOPRIL 2.5 MG TAB PO SCH (09:00)
[2016-12-06] MEDS: MULTIVITAMINS, THERA 1 EACH TAB PO SCH (09:51)
[2016-12-06] MEDS: SPIRONOLACTONE 25 MG TAB PO SCH (09:51)
[2016-12-06] MEDS: GABAPENTIN 400 MG CAP PO SCH (09:56)
[2016-12-06] MEDS: FUROSEMIDE 10 MG/ML 4 ML VIAL IV SCH (09:56)
[2016-12-06] MEDS: METOPROLOL SUCCINATE (ER) 25 MG TAB.ER.24H PO SCH (09:56)
[2016-12-06] MEDS: buPROPion SR 150 MG TABLET.ER PO SCH (09:57)
[2016-12-06] MEDS: ASPIRIN 81 MG CHEW PO SCH (09:57)
[2016-12-06] MEDS: OXYBUTYNIN XL 5 MG TAB.ER.24 PO SCH (09:57)
[2016-12-06] MEDS: PRIMIDONE 50 MG TAB PO SCH (09:58)
[2016-12-06] MEDS: PARoxetine 20 MG TAB PO SCH (09:58)
[2016-12-06] MEDS: CLOPIDOGREL 75 MG TAB PO SCH (09:58)
--- NOTE | 2016-12-06 11:16 | P.DS ---
Providers Date of admission: 12/04/16 06:32 Expected date of discharge: 12/06/16 Attending physician: Duarte Figueredo Consults: 12/04/16 06:35 Consult Physician Routine Consulting Provider: Jessica Cardoso Consult Reason/Comments: your patient. COPD. Do you want consulting provider notified?: Yes 12/04/16 07:10 Consult Physician Routine Consulting Provider: Elicia Gabriel Consult Reason/Comments: post-CABG patient Do you want consulting provider notified?: Yes 12/04/16 12:21 Consult Physician Routine Consulting Provider: Zafar Alexander Consult Reason/Comments: recent cabg Do you want consulting provider notified?: Yes Primary care physician: [facility] Course: Patient admitted via the emergency room, with extreme dyspnea and fatigue post- open heart surgery had been discharged from [facility] 12 hours prior Patient was admitted with hypercapnia postoperative anemia acute exacerbation of chronic COPD General: [Patient awake, alert and oriented times 3. Patient in no acute distress.] HEENT: [PERRL. EOMI. No pharyngeal erythema or exudate.] Neck: [No adenopathy.] Cardiac: [Heart regular in rate and rhythm. No S3. No S4. No clicks, rubs. No murmur.] Lungs: Slightly diminished breath sounds bilaterally with fine bibasilar crackles Midline incision clean and dry Abdomen: [No mass. No organomegaly. Bowel sounds presnt and normoactive in all 4 quadrants.] Extremes: [No edema no cyanosis no claudication normal pulses] : [] Musculoskeletal: [No joint erythema, edema or tenderness.] Skin: [No rash.] Neurologic: [No lateralizing deficits. CN II - XII grossly intact.] Lymphatic: [No adenopathy.] Patient Condition at Discharge: Serious Plan - Discharge Summary New Discharge Prescriptions: No Action ALPRAZolam [Xanax] 0.5 mg PO HS PRN PRN Reason: Anxiety Hydrocodone/Acetaminophen [Hydrocodone/Acetaminophen 10-325] 1 tab PO Q8H PRN PRN Reason: Pain Gabapentin 400 mg PO BID Budesonide-Formot 160-4.5 Mcg [Symbicort 160-4.5 Mcg Inhaler] 2 puff INHALATION RT-BID #1 inhaler Atorvastatin [Lipitor] 80 mg PO HS #30 tab Nitroglycerin Sl Tabs [Nitrostat] 0.4 mg SUBLINGUAL Q5M PRN #25 tab PRN Reason: Chest Pain Cyanocobalamin [Vitamin B-12] 4,000 mcg PO DAILY Multivitamins, Thera [Multivitamin (formulary)] 1 tab PO DAILY PARoxetine HCL 60 mg PO DAILY buPROPion SR [Wellbutrin SR] 150 mg PO DAILY Primidone [Mysoline] 50 mg PO BID Vitamin E 1,000 unit PO DAILY Tiotropium Cassandra [Spiriva] 18 mcg INHALATION RT-DAILY Aspirin 81 mg PO DAILY Latanoprost Ophth [Xalatan 0.005%] 1 drops LEFT EYE HS Ranitidine HCl [Zantac] 150 mg PO BID PRN PRN Reason: Heartburn Clopidogrel [Plavix] 75 mg PO DAILY #30 tab Albuterol Nebulized [Ventolin Nebulized] 2.5 mg INHALATION RT-QID Calcium Carbonate [Calcium] 600 mg PO DAILY Lisinopril [Zestril] 10 mg PO DAILY Magnesium Gluconate [Magonate] 1,000 mg PO DAILY Metoprolol Tartrate [Lopressor] 50 mg PO TID Discharge Medication List ALPRAZolam [Xanax] 0.5 mg PO HS PRN 06/23/14 [History] Gabapentin 400 mg PO BID 06/24/14 [History] Hydrocodone/Acetaminophen [Hydrocodone/Acetaminophen 10-325] 1 tab PO Q8H PRN [History] Budesonide-Formot 160-4.5 Mcg [Symbicort 160-4.5 Mcg Inhaler] 2 puff INHALATION RT-BID #1 inhaler 06/29/14 [Rx] Atorvastatin [Lipitor] 80 mg PO HS #30 tab 07/18/14 [Rx] Nitroglycerin Sl Tabs [Nitrostat] 0.4 mg SUBLINGUAL Q5M PRN #25 tab 07/18/14 [Rx ] Cyanocobalamin [Vitamin B-12] 4,000 mcg PO DAILY 07/21/14 [History] Multivitamins, Thera [Multivitamin (formulary)] 1 tab PO DAILY 07/21/14 [History ] PARoxetine HCL 60 mg PO DAILY 10/29/14 [History] Primidone [Mysoline] 50 mg PO BID 10/29/14 [History] buPROPion SR [Wellbutrin SR] 150 mg PO DAILY 10/29/14 [History] Aspirin 81 mg PO DAILY 09/17/15 [History] Tiotropium Cassandra [Spiriva] 18 mcg INHALATION RT-DAILY 09/17/15 [History] Vitamin E 1,000 unit PO DAILY 09/17/15 [History] Latanoprost Ophth [Xalatan 0.005%] 1 drops LEFT EYE HS 08/05/16 [History] Ranitidine HCl [Zantac] 150 mg PO BID PRN 08/05/16 [History] Clopidogrel [Plavix] 75 mg PO DAILY #30 tab 08/06/16 [Rx] Albuterol Nebulized [Ventolin Nebulized] 2.5 mg INHALATION RT-QID 12/04/16 [ History] Calcium Carbonate [Calcium] 600 mg PO DAILY 12/04/16 [History] Lisinopril [Zestril] 10 mg PO DAILY 12/04/16 [History] Magnesium Gluconate [Magonate] 1,000 mg PO DAILY 12/04/16 [History] Metoprolol Tartrate [Lopressor] 50 mg PO TID 12/04/16 [History] Follow up Appointment(s)/Referral(s): Duarte Figueredo Jr, [Primary Care Provider] - 1-2 days
[2016-12-06 11:22] VITALS: BP 91/52; TEMP 96.7
[2016-12-06 11:29] VITALS: PULSE 86
--- NOTE | 2016-12-06 13:37 | P.PN ---
Subjective A 61-year-old female patient with status post coronary artery bypass surgery, mitral valve repair and tricuspid valve repair was done at [facility]. The patient came in with worsening shortness of breath and fluid overload and increasing her body weight. She also had some swelling in her lower extremities. Echocardiogram was done and the patient was found to have an ejection fraction of around 20% with some moderate degree of secondary pulmonary hypertension. She was diuresed aggressively with IV Lasix and today' s chest x-ray shows improvement in the volume status. The patient is breathing much easier for now. She will be discharged home on Lasix 40 mg twice a day. The patient will be also placed on lisinopril 5 mg by mouth daily metoprolol 50 mg by mouth 3 times a day and she will continue aspirin and Plavix. She is not smoking for now. She is on Spiriva as maintenance for COPD. No new complaints otherwise for now. She'll be seeing Dr. Gan on outpatient basis. Objective - Vital Signs Vital signs: Vital Signs Temp 96.7 F L 12/06/16 08:00 Pulse 86 12/06/16 11:28 Resp 16 12/06/16 08:00 BP 91/52 12/06/16 08:00 Pulse Ox 96 12/06/16 08:24 Intake & Output 12/05/16 12/06/16 12/06/16 18:59 06:59 18:59 Intake Total 1534 574.151 237 Output Total 1900 900 Balance 1534 -1325.849 -663 Weight 50.2 kg 50.2 kg Intake: Intake, IV Titration 1114 334.151 Amount Heparin Sodium,Porcine/ 724 334.151 D5w Pmx 25,000 unit In Dextrose/Water 1 500ml. bag @ 18 UNITS/KG/HR 18. 77 mls/hr IV .Q24H [facility] Rx #:[id number] Piperacillin-Tazobactam 3 150 .375 gm In Dextrose/Water 1 50ml.bag @ 12.5 mls/hr IVPB Q8HR [facility] Rx#: [id number] Sodium Chloride 0.9% 1, 240 000 ml @ 20 mls/hr IV . Q24H [facility] Rx#:[id number] Oral 420 240 237 Output: Urine 1900 900 Other: Voiding Method Toilet Toilet # Voids 1 1 # Bowel Movements 0 0 - Exam Head exam was generally normal. There was no scleral icterus or corneal arcus. Mucous membranes were moist.Neck was supple and without jugular venous distension, thyromegaly, or carotid bruits. Carotids were easily palpable bilaterally. There was no adenopathy. Lung sounds are diminished in lung bases along with some few crackles in lung bases bilaterally. Sternum stable clean and intact. Heart sounds are distant, regular, positive S1 and S2 without any significant murmurs.Abdominal exam revealed normal bowel sounds. The abdomen was soft, non-tender, and without masses, organomegaly, or appreciable enlargement of the abdominal aorta. Extremities show trace edema and there is no cyanosis or clubbing on all of the surgical wound sites in the lower extremities are dry clean and intact. - Labs CBC & Chem 7: 12/06/16 05:23 12/06/16 05:23 Labs: Abnormal Lab Results - Last 24 Hours (Table) 12/05/16 12/06/16 12/06/16 Range/Units 16:03 05:23 05:23 WBC 17.4 H (3.8-10.6) k/uL RBC 2.75 L (3.80-5.40) m/uL Hgb 8.4 L (11.4-16.0) gm/dL Hct 26.3 L (34.0-46.0) % RDW 19.5 H (11.5-15.5) % Plt Count 607 H (150-450) k/uL Neutrophils # 13.2 H (1.3-7.7) k/uL Monocytes # 1.7 H (0-1.0) k/uL APTT 44.5 H (22.0-30.0) sec Sodium 136 L (137-145) mmol/L Chloride 95 L (98-107) mmol/L Carbon Dioxide 33 H (22-30) mmol/L BUN 24 H (7-17) mg/dL Glucose 103 H (74-99) mg/dL Alkaline Phosphatase 150 H (38-126) U/L Total Protein 5.2 L (6.3-8.2) g/dL Albumin 2.8 L (3.5-5.0) g/dL Microbiology - Last 24 Hours (Table) 12/04/16 06:45 Blood Culture - Preliminary Blood No Growth after 24 hours Assessment and Plan Plan: Assessment and plan #1 acute respiratory distress secondary to systolic heart failure acute on chronic. Echo this admission reveals severely impaired left ventricular systolic function. Combination also of possible pneumonia and COPD exacerbation. Clinically however the patient was predominantly congestion heart failure and she do not to have an ejection fraction of less than 20%. She was discharged home on a combination of beta blockers, josh inhibitors and Lasix. Aldactone may be also added per cardiology. #2 recent coronary artery bypass grafting surgery and mitral valve and tricuspid valve repair at [facility], we will obtain records #3 hypertension #4 hyperlipidemia #5 nicotine dependence #6 COPD #7 PAD with prior peripheral intervention #8 Coronary artery disease with prior stent placements Plan From the pulmonary standpoint, the patient will be using Spiriva once a day. She has home oxygen. Cardiology to comment on her home medications which includes a combination of beta blockers josh inhibitors and diuretics. Smoking cessation. We'll follow.
[2016-12-06] MEDS: HYDROcodone/APAP 10-325MG 1 EACH TAB PO PRN (14:15)
--- NOTE | 2016-12-06 15:48 | P.PN ---
Subjective Principal diagnosis: Severe shortness of breath This is 61-year-old female who presented to the hospital with acute respiratory distress, secondary to heart failure and possible pneumonia. She diuresed well through the night last night. Time examination this morning she actually looks like a new woman. She sitting up at the bedside, breathing overall is stable. Her weight is down 2 kg from yesterday. Blood pressure 90/ 50 this morning with a heart rate in the 80s, 100% on 2 L of oxygen. White blood cell count down to 17.3, hemoglobin 8.4, platelet count 607. Potassium 3.7, BUN 24, creatinine 0.7. Liver function tests are also improving today, echocardiogram with Doppler study was performed which revealed an ejection fraction of less than 20%. Patient is going to be discharged home today. We' ll make her a follow-up appointment with Dr. Mckeon in the office post discharge. Objective - Vital Signs Vital signs: Vital Signs Temp 96.7 F L 12/06/16 08:00 Pulse 86 12/06/16 11:28 Resp 16 12/06/16 08:00 BP 91/52 12/06/16 08:00 Pulse Ox 96 12/06/16 08:24 Intake & Output 12/05/16 12/06/16 12/06/16 18:59 06:59 18:59 Intake Total 1534 574.151 237 Output Total 1900 900 Balance 1534 -1325.849 -663 Weight 50.2 kg 50.2 kg Intake: Intake, IV Titration 1114 334.151 Amount Heparin Sodium,Porcine/ 724 334.151 D5w Pmx 25,000 unit In Dextrose/Water 1 500ml. bag @ 18 UNITS/KG/HR 18. 77 mls/hr IV .Q24H [facility] Rx #:[id number] Piperacillin-Tazobactam 3 150 .375 gm In Dextrose/Water 1 50ml.bag @ 12.5 mls/hr IVPB Q8HR [facility] Rx#: [id number] Sodium Chloride 0.9% 1, 240 000 ml @ 20 mls/hr IV . Q24H [facility] Rx#:[id number] Oral 420 240 237 Output: Urine 1900 900 Other: Voiding Method Toilet Toilet # Voids 1 1 # Bowel Movements 0 0 - Exam PHYSICAL EXAMINATION: HEENT: Head is atraumatic, normocephalic. Pupils equal, round. Neck is supple. There is elevated jugular venous pressure. HEART EXAMINATION: Heart S1 and S2 with systolic murmur is heard. CHEST EXAMINATION: Lungs revealed improvement in air entry bilaterally ABDOMEN: Soft, nontender. Bowel sounds are heard. No organomegaly noted. EXTREMITIES: 1+ peripheral pulses with trace evidence of peripheral edema and no calf tenderness noted. Bilateral ecchymosis NEUROLOGIC patient is awake, alert and oriented -3. . - Labs CBC & Chem 7: 12/06/16 05:23 12/06/16 05:23 Labs: Abnormal Lab Results - Last 24 Hours (Table) 12/05/16 12/06/16 12/06/16 Range/Units 16:03 05:23 05:23 WBC 17.4 H (3.8-10.6) k/uL RBC 2.75 L (3.80-5.40) m/uL Hgb 8.4 L (11.4-16.0) gm/dL Hct 26.3 L (34.0-46.0) % RDW 19.5 H (11.5-15.5) % Plt Count 607 H (150-450) k/uL Neutrophils # 13.2 H (1.3-7.7) k/uL Monocytes # 1.7 H (0-1.0) k/uL APTT 44.5 H (22.0-30.0) sec Sodium 136 L (137-145) mmol/L Chloride 95 L (98-107) mmol/L Carbon Dioxide 33 H (22-30) mmol/L BUN 24 H (7-17) mg/dL Glucose 103 H (74-99) mg/dL Alkaline Phosphatase 150 H (38-126) U/L Total Protein 5.2 L (6.3-8.2) g/dL Albumin 2.8 L (3.5-5.0) g/dL Microbiology - Last 24 Hours (Table) 12/04/16 06:45 Blood Culture - Preliminary Blood No Growth after 24 hours Assessment and Plan Plan: Assessment and plan #1 acute respiratory distress secondary to systolic heart failure acute on chronic. Echo this admission reveals severely impaired left ventricular systolic function. Combination also of possible pneumonia and COPD exacerbation. Recommend to diurese the patient and treat with antibiotics. #2 recent coronary artery bypass grafting surgery and mitral valve and tricuspid valve repair at [facility], we will obtain records #3 hypertension #4 hyperlipidemia #5 nicotine dependence #6 COPD #7 PAD with prior peripheral intervention #8Coronary artery disease with prior stent placements Plan Patient may be able to be discharged home today. We'll make her a follow-up appointment to see Dr. Gan in the office post discharge. DNP note has been reviewed, I agree with a documented findings and plan of care. Patient was seen and examined.
[2016-12-08] MEDS ORDERED: NON-FORMULARY DRUG (Alendronate Sodium [Fosamax] 70 MG) PO SCH (06:35)
== END 2016-12-06 15:19 | disposition home health service (06) | DRG 291 ==
LOC: EC 04:08 → 6SEL 06:32
PROVIDERS: ADMIT Family Medicine; ATTEND Family Medicine
DX: I11.0 Hypertensive heart disease with heart failure (principal); J96.22 Acute and chronic respiratory failure with hypercapnia; J18.9 Pneumonia, unspecified organism; J96.11 Chronic respiratory failure with hypoxia; J44.1 Chronic obstructive pulmonary disease with (acute) exacerbation; J44.0 Chronic obstructive pulmonary disease with (acute) lower respiratory infection; I50.23 Acute on chronic systolic (congestive) heart failure; I27.2 Other secondary pulmonary hypertension; Z99.81 Dependence on supplemental oxygen; D75.1 Secondary polycythemia; Y95 Nosocomial condition; E78.5 Hyperlipidemia, unspecified; I25.5 Ischemic cardiomyopathy; K21.9 Gastro-esophageal reflux disease without esophagitis; I25.10 Atherosclerotic heart disease of native coronary artery without angina pectoris; I25.2 Old myocardial infarction; I73.9 Peripheral vascular disease, unspecified; F41.9 Anxiety disorder, unspecified; F32.9 Major depressive disorder, single episode, unspecified; D64.9 Anemia, unspecified; M81.0 Age-related osteoporosis without current pathological fracture; K90.0 Celiac disease; Z95.5 Presence of coronary angioplasty implant and graft; Z95.2 Presence of prosthetic heart valve; Z95.1 Presence of aortocoronary bypass graft; Z87.891 Personal history of nicotine dependence; Z87.01 Personal history of pneumonia (recurrent); Z85.3 Personal history of malignant neoplasm of breast; Z92.3 Personal history of irradiation; Z79.02 Long term (current) use of antithrombotics/antiplatelets; Z79.51 Long term (current) use of inhaled steroids; Z79.82 Long term (current) use of aspirin; Z79.899 Other long term (current) drug therapy
CPT/HCPCS: 36415; 36600; 71010; 71020; 71275; 80053; 81003; 82550; 82553; 82805; 83880; 84484; 85025; 85379; 85610; 85730; 87040; 93005; 93306; 94640; 94660; 94760; 96365; 96366; 96367; 96368; 96375; 96376; 99285

== ENCOUNTER 2017-02-11 00:59 | Inpatient (IN) | payer OTHER ==
[2017-02-11 01:22] LABS: Anisocytosis Slight; Basophils % (A) 0 %; CH 26.2; CHCM 31.6; Eosinophils # (A) 0.2 k/uL (0-0.7); Eosinophils % (A) 2 %; HCT 34.4 % (34.0-46.0); HGB 10.6 gm/dL (11.4-16.0); Hypochromasia Slight; Luc # (Auto) 0.32; Luc % (Auto) 4; Lymphocytes # (A) 2.4 k/uL (1.0-4.8); Lymphocytes % (A) 27 %; MCH 25.6 pg (25.0-35.0); MCHC 30.7 g/dL (31.0-37.0); MCV 83.2 fL (80.0-100.0); Mean Platelet Volume 7.2; Monocytes # (A) 0.8 k/uL (0-1.0); Monocytes % (A) 9 %; Neutrophils # (A) 5.2 k/uL (1.3-7.7); Neutrophils % (A) 58 %; RBC 4.13 m/uL (3.80-5.40); RDW 16.6 % (11.5-15.5); WBC 8.9 k/uL (3.8-10.6); WBC (Perox) 8.89
[2017-02-11 01:30] LABS: Creatine Kinase 133 U/L (30-135); INR 1.2 (<1.2); Partial Thromboplastin Time 26.6 sec (22.0-30.0); Prothrombin Time 11.7 sec (9.0-12.0)
[2017-02-11 01:42] LABS: ALT 65 U/L (9-52); AST 83 U/L (14-36); Alkaline Phosphatase 144 U/L (38-126); Anion Gap 10 mmol/L; Blood Urea Nitrogen 12 mg/dL (7-17); Calcium 8.4 mg/dL (8.4-10.2); Carbon Dioxide 24 mmol/L (22-30); Chloride 101 mmol/L (98-107); Glucose 201 mg/dL (74-99); Non-African American GFR(MDRD) >60 (>60 ml/min/1.73 sqM); Potassium 3.9 mmol/L (3.5-5.1); Sodium 135 mmol/L (137-145); Total Bilirubin 0.2 mg/dL (0.2-1.3); Total Protein 6.2 g/dL (6.3-8.2)
[2017-02-11 01:44] LABS: Troponin I <0.012 ng/mL (0.000-0.034)
[2017-02-11 01:53] LABS: Creatine Kinase MB 3.1 ng/mL (0.0-2.4)
--- NOTE | 2017-02-11 01:54 | ED ---
SOB HPI - General Chief Complaint: Shortness of Breath Stated Complaint: FESTUS Time Seen by Provider: 02/11/17 01:01 Source: patient, EMS, RN notes reviewed Mode of arrival: EMS Limitations: no limitations - History of Present Illness Initial Comments: This a 61-year-old female presents emergency department via EMS chief complaint shortness of breath. Patient states that on Tuesday she started developing shortness breath has worsened over the last few days. Patient states that she has long-standing history of a cardiac and pulmonary disease. Patient states that she had a quadruple bypass in November. Patient denies any chest pain. Patient states that she has been coughing and wheezing. She states she's does treatments at home with no relief. Denies any fever or chills. Denies any headache or dizziness. Patient had no nausea vomiting diarrhea constipation. Patient states her bypass was done at [facility]. Patient does have a history of COPD. - Related Data Home Medications Medication Instructions Recorded Confirmed ALPRAZolam [Xanax] 0.5 mg PO HS PRN 06/23/14 12/04/16 Gabapentin 400 mg PO BID 06/24/14 12/04/16 Hydrocodone/Acetaminophen 1 tab PO Q8H PRN 06/24/14 12/04/16 [Hydrocodone/Acetaminophen 10-325] Cyanocobalamin [Vitamin B-12] 4,000 mcg PO DAILY 07/21/14 12/04/16 Multivitamins, Thera [Multivitamin 1 tab PO DAILY 07/21/14 12/04/16 (formulary)] PARoxetine HCL 60 mg PO DAILY 10/29/14 12/04/16 Primidone [Mysoline] 50 mg PO BID 10/29/14 12/04/16 buPROPion SR [Wellbutrin SR] 150 mg PO DAILY 10/29/14 12/04/16 Aspirin 81 mg PO DAILY 09/17/15 12/04/16 Tiotropium [place] [Spiriva] 18 mcg INHALATION RT-DAILY 09/17/15 12/04/16 Vitamin E 1,000 unit PO DAILY 09/17/15 12/04/16 Latanoprost Ophth [Xalatan 0.005%] 1 drops LEFT EYE HS 08/05/16 12/04/16 Ranitidine HCl [Zantac] 150 mg PO BID PRN 08/05/16 12/04/16 Albuterol Nebulized [Ventolin 2.5 mg INHALATION RT-QID 12/04/16 12/04/16 Nebulized] Calcium Carbonate [Calcium] 600 mg PO DAILY 12/04/16 12/04/16 Magnesium Gluconate [Magonate] 1,000 mg PO DAILY 12/04/16 12/04/16 Previous Rx's Medication Instructions Recorded Budesonide-Formot 160-4.5 Mcg 2 puff INHALATION RT-BID #1 inhaler 06/29/14 [Symbicort 160-4.5 Mcg Inhaler] Atorvastatin [Lipitor] 80 mg PO HS #30 tab 07/18/14 Nitroglycerin Sl Tabs [Nitrostat] 0.4 mg SUBLINGUAL Q5M PRN #25 tab 07/18/14 Clopidogrel [Plavix] 75 mg PO DAILY #30 tab 08/06/16 Furosemide [Lasix] 40 mg PO BID #60 tablet 12/06/16 Lisinopril [Zestril] 5 mg PO DAILY #30 tab 12/06/16 Metoprolol Succinate (ER) [Toprol 25 mg PO BID #60 tab 12/06/16 Xl] Spironolactone [Aldactone] 12.5 mg PO BID #60 tablet 12/06/16 Allergies Allergy/AdvReac Type Severity Reaction Status Date / Time No Known Allergies Allergy Verified 02/11/17 01:04 Review of Systems ROS Statement: Those systems with pertinent positive or pertinent negative responses have been documented in the HPI. ROS Other: All systems not noted in ROS Statement are negative. Past Medical History Past Medical History: Coronary Artery Disease (CAD), Cancer, COPD, GERD/Reflux, Hyperlipidemia, Hypertension, Myocardial Infarction ([place]), Pneumonia, Vascular Disorder Additional Past Medical History / Comment(s): COPD, chronic hypoxic respiratory failure, coronary artery disease with previous coronary intervention and PCI and stenting of RCA, CHF with significant degree of secondary pulmonary hypertension, ischemic cardiac myopathy, celiac disease, breast cancer involving the right breast with previous lumpectomy followed by radiation therapy, osteoporosis, hypertension, hyperlipidemia, peripheral vascular disease Last Myocardial Infarction Date:: 2014 History of Any Multi-Drug Resistant Organisms: None Reported Past Surgical History: Breast Surgery, Section, Coronary Bypass/CABG, Heart Catheterization With Stent, Orthopedic Surgery Additional Past Surgical History / Comment(s): R breast lumpectomy, 2001 CARDIAC STENTS X4, 2015 PTCA, WRIST SX X3, D&C, 11-01-14 AORTAGRAM W/RUNOFF, CECILIO ILIAC STENTS Past Anesthesia/Blood Transfusion Reactions: No Reported Reaction Date of Last Stent Placement:: 2001 Past Psychological History: Anxiety, Depression Smoking Status: Current every day smoker Past Alcohol Use History: None Reported Past Drug Use History: None Reported - Past Family History Mother Family Medical History: Diabetes Mellitus Additional Family Medical History / Comment(s): HEART ISSSUES Father Family Medical History: Blood Disorder Additional Family Medical History / Comment(s): HEMACHROMATOSIS General Exam Limitations: no limitations General appearance: alert, in no apparent distress Head exam: Present: atraumatic, normocephalic, normal inspection Eye exam: Present: normal appearance, PERRL, EOMI. Absent: scleral icterus, conjunctival injection, periorbital swelling ENT exam: Present: normal exam, normal oropharynx, mucous membranes moist Neck exam: Present: normal inspection, full ROM. Absent: tenderness, meningismus, lymphadenopathy Respiratory exam: Present: respiratory distress (Moderate), wheezes. Absent: normal lung sounds bilaterally, rales, rhonchi, stridor Cardiovascular Exam: Present: regular rate, normal rhythm, normal heart sounds. Absent: systolic murmur, diastolic murmur, rubs, gallop, clicks Back exam: Absent: CVA tenderness (R), CVA tenderness (L) Course Vital Signs 02/11/17 02/11/17 01:02 01:53 Temperature 97.9 F Pulse Rate 88 Respiratory 22 24 Rate Blood Pressure 156/93 O2 Sat by Pulse 100 Oximetry - Reevaluation(s) Reevaluation #1: 02/11/17 03:00 Patient is much improved on BiPAP at this time. Patient does not seem to be in respiratory distress. Patient does have evidence of pneumonia on x-ray. Medical Decision Making - Medical Decision Making 61-year-old female presented for shortness of breath. Patient will was placed on BiPAP for acute respirator distress. Patient is improved at this time patient was given Levaquin for pneumonia patient will be admitted at this time. - Lab Data Result diagrams: 02/11/17 01:08 02/11/17 01:08 Lab Results 09/01/17 09/01/17 09/01/17 Range/Units 01:08 01:08 01:08 WBC 8.9 (3.8-10.6) k/uL RBC 4.13 (3.80-5.40) m/uL Hgb 10.6 L (11.4-16.0) gm/dL Hct 34.4 (34.0-46.0) % MCV 83.2 (80.0-100.0) fL MCH 25.6 (25.0-35.0) pg MCHC 30.7 L (31.0-37.0) g/dL RDW 16.6 H (11.5-15.5) % Plt Count 349 (150-450) k/uL Neutrophils % 58 % Lymphocytes % 27 % Monocytes % 9 % Eosinophils % 2 % Basophils % 0 % Neutrophils # 5.2 (1.3-7.7) k/uL Lymphocytes # 2.4 (1.0-4.8) k/uL Monocytes # 0.8 (0-1.0) k/uL Eosinophils # 0.2 (0-0.7) k/uL Basophils # 0.0 (0-0.2) k/uL Hypochromasia Slight Anisocytosis Slight PT (9.0-12.0) sec INR (<1.2) APTT (22.0-30.0) sec Sodium 135 L (137-145) mmol/L Potassium 3.9 (3.5-5.1) mmol/L Chloride 101 (98-107) mmol/L Carbon Dioxide 24 (22-30) mmol/L Anion Gap 10 mmol/L BUN 12 (7-17) mg/dL Creatinine 0.70 (0.52-1.04) mg/dL Est GFR (MDRD) Af Amer >60 (>60 ml/min/1.73 sqM) Est GFR (MDRD) Non-Af >60 (>60 ml/min/1.73 sqM) Glucose 201 H (74-99) mg/dL Plasma Lactic Acid Bj (0.7-2.0) mmol/L Calcium 8.4 (8.4-10.2) mg/dL Magnesium 2.0 (1.6-2.3) mg/dL Total Bilirubin 0.2 (0.2-1.3) mg/dL AST 83 H (14-36) U/L ALT 65 H (9-52) U/L Alkaline Phosphatase 144 H (38-126) U/L Total Creatine Kinase 133 (30-135) U/L CK-MB (CK-2) 3.1 H* (0.0-2.4) ng/mL CK-MB (CK-2) Rel Index 2.3 Troponin I <0.012 (0.000-0.034) ng/mL NT-Pro-B Natriuret Pep pg/mL Total Protein 6.2 L (6.3-8.2) g/dL Albumin 3.7 (3.5-5.0) g/dL 02/11/17 02/11/17 02/11/17 Range/Units 01:08 01:08 01:08 WBC (3.8-10.6) k/uL RBC (3.80-5.40) m/uL Hgb (11.4-16.0) gm/dL Hct (34.0-46.0) % MCV (80.0-100.0) fL MCH (25.0-35.0) pg MCHC (31.0-37.0) g/dL RDW (11.5-15.5) % Plt Count (150-450) k/uL Neutrophils % % Lymphocytes % % Monocytes % % Eosinophils % % Basophils % % Neutrophils # (1.3-7.7) k/uL Lymphocytes # (1.0-4.8) k/uL Monocytes # (0-1.0) k/uL Eosinophils # (0-0.7) k/uL Basophils # (0-0.2) k/uL Hypochromasia Anisocytosis PT 11.7 (9.0-12.0) sec INR 1.2 H (<1.2) APTT 26.6 (22.0-30.0) sec Sodium (137-145) mmol/L Potassium (3.5-5.1) mmol/L Chloride (98-107) mmol/L Carbon Dioxide (22-30) mmol/L Anion Gap mmol/L BUN (7-17) mg/dL Creatinine (0.52-1.04) mg/dL Est GFR (MDRD) Af Amer (>60 ml/min/1.73 sqM) Est GFR (MDRD) Non-Af (>60 ml/min/1.73 sqM) Glucose (74-99) mg/dL Plasma Lactic Acid Bj 1.6 (0.7-2.0) mmol/L Calcium (8.4-10.2) mg/dL Magnesium (1.6-2.3) mg/dL Total Bilirubin (0.2-1.3) mg/dL AST (14-36) U/L ALT (9-52) U/L Alkaline Phosphatase (38-126) U/L Total Creatine Kinase (30-135) U/L CK-MB (CK-2) (0.0-2.4) ng/mL CK-MB (CK-2) Rel Index Troponin I (0.000-0.034) ng/mL NT-Pro-B Natriuret Pep 7300 pg/mL Total Protein (6.3-8.2) g/dL Albumin (3.5-5.0) g/dL 02/11/17 03:02 EKG performed at 1:17 sinus rhythm with short WI left axis deviation rate of 86 WI interval 92 QS duration 86 QTC is QTC 382/457 Disposition Clinical Impression: Acute respiratory failure, COPD (chronic obstructive pulmonary disease), Pneumonia Disposition: ADMITTED IP TO THIS HOSP Condition: Fair Referrals: Duarte Figueredo Jr, [Primary Care Provider] - 1-2 days Time of Disposition: 03:01
--- NOTE | 2017-02-11 02:46 | XR ---
EXAM: XR Chest, 1 View CLINICAL HISTORY: Reason: difficulty breathing TECHNIQUE: Frontal view of the chest. COMPARISON: 12/06/16 FINDINGS/IMPRESSION: Suspect some increased right lung base opacity. May represent atelectasis. There is some increasing elevation of the right hemidiaphragm suggesting a component of atelectasis/volume loss. Correlate for a component of right basilar infiltrate. No other adverse change from prior. Aeration at the left lung base appears improved. Postop changes and other unchanged findings.
[2017-02-11] MEDS ORDERED: LEVOFLOXACIN 750MG-D5W PMX 750 MG in DEXTROSE/WATER 1 150ML.BAG IVPB STA (02:47)
[2017-02-11] MEDS ORDERED: FAMOTIDINE 20 MG TAB PO PRN (03:03)
[2017-02-11] MEDS: methylPREDNISolone SOD SUCCI 125 MG/2 ML VIAL IV SCH ×3 (06:23→17:20)
[2017-02-11] MEDS: TIOTROPIUM 18 MCG/PUFF INHALER INHALATION SCH (08:07)
[2017-02-11] MEDS: SYMBICORT 160-4.5 MCG INHALER INHALATION SCH ×2 (08:07→21:27)
[2017-02-11] MEDS: HYDROcodone/APAP 10-325MG 1 EACH TAB PO PRN ×2 (08:37→16:40)
[2017-02-11] MEDS: VITAMIN E (DL,TOCOPHERYL ACET) 400 UNIT CAP PO SCH (09:21)
[2017-02-11] MEDS: LISINOPRIL 5 MG TAB PO SCH ×2 (09:21)
[2017-02-11] MEDS: MULTIVITAMINS, THERA 1 EACH TAB PO SCH (09:21)
[2017-02-11] MEDS: ASPIRIN 81 MG CHEW PO SCH (09:21)
[2017-02-11] MEDS: GABAPENTIN 400 MG CAP PO SCH ×2 (09:22→21:28)
[2017-02-11] MEDS: CALCIUM CARBONATE 500 MG CHEWABLE PO SCH (09:22)
[2017-02-11] MEDS: CLOPIDOGREL 75 MG TAB PO SCH (09:22)
[2017-02-11] MEDS: FUROSEMIDE 40 MG TAB PO SCH ×2 (09:22→16:41)
[2017-02-11] MEDS: MAGNESIUM OXIDE 400 MG TAB PO SCH (09:22)
[2017-02-11] MEDS: buPROPion XL 150 MG TAB.ER.24H PO SCH (09:22)
[2017-02-11] MEDS: PARoxetine 20 MG TAB PO SCH (09:22)
[2017-02-11] MEDS: METOPROLOL SUCCINATE (ER) 25 MG TAB.ER.24H PO SCH ×2 (09:22→21:29)
[2017-02-11] MEDS: PRIMIDONE 50 MG TAB PO SCH ×2 (09:23→21:29)
[2017-02-11] MEDS: SPIRONOLACTONE 25 MG TAB PO SCH ×2 (09:23→21:29)
[2017-02-11] MEDS: CYANOCOBALAMIN 500 MCG TAB PO SCH (09:23)
[2017-02-11] MEDS ORDERED: ALBUTEROL NEBULIZED 2.5 MG/3 ML INHALATION PRN (11:29)
[2017-02-11] MEDS: ALBUTEROL NEBULIZED 2.5 MG/3 ML INHALATION SCH ×3 (11:50→21:27)
[2017-02-11 12:44] LABS: Glucose,Whole Blood 145 mg/dL (75-99)
[2017-02-11 14:25] VITALS: BMI 19.2
[2017-02-11 16:56] LABS: Glucose,Whole Blood 171 mg/dL (75-99)
--- NOTE | 2017-02-11 17:05 | P.HPIM ---
History of Present Illness H&P Date: 02/11/17 Chief Complaint: Shortness of breath 61-year-old female presents to emergency department via EMS chief complaint shortness of breath. Patient states that on Tuesday she started developing shortness of breath that has worsened over the last few days. His skin had a long-standing history of cardiopulmonary disease patient recently underwent valve replacement and quadruple bypass and she also has a known history of congestive heart failure. Patient denies chest pain she has been coughing and/ or wheezing she is done updraft treatments at home with little or no relief. Patient also has known history of COPD. Review of Systems Ears, nose, mouth and throat: Reports as per HPI Cardiovascular: Reports shortness of breath Respiratory: Reports cough, Reports dyspnea, Reports home oxygen Gastrointestinal: Reports as per HPI Genitourinary: Reports as per HPI Menstruation: Reports as per HPI, Reports postmenopausal Musculoskeletal: Reports as per HPI Integumentary: Reports as per HPI Neurological: Reports as per HPI Psychiatric: Reports as per HPI Past Medical History Past Medical History: Coronary Artery Disease (CAD), Cancer, Heart Failure, COPD , Eye Disorder, GERD/Reflux, Hyperlipidemia, Myocardial Infarction ([place]), Pneumonia, Respiratory Disorder, Vascular Disorder Additional Past Medical History / Comment(s): COPD, chronic hypoxic respiratory failure, CHF with significant degree of secondary pulmonary hypertension, ischemic cardiac myopathy, O2 1.5L/NC at , celiac disease, breast cancer involving the right breast with previous lumpectomy followed by radiation therapy, osteoporosis, PAD, chronic pain L wrist (previous injury with sx), osteoporosis, L eye possible glaucoma, sinus problems. Last Myocardial Infarction Date:: 2014 History of Any Multi-Drug Resistant Organisms: None Reported Past Surgical History: Breast Surgery, Section, Coronary Bypass/CABG, Heart Catheterization With Stent, Orthopedic Surgery Additional Past Surgical History / Comment(s): 11/2016 CABG 4 vessel with mitral/ tricuspid surgery at [facility]-also had thoracentesis, R breast lumpectomy, L WRIST SX X3, D&C, 11-01-14 AORTAGRAM W/RUNOFF- CECILIO ILIAC STENTS, colonoscopy. Past Anesthesia/Blood Transfusion Reactions: No Reported Reaction Date of Last Stent Placement:: 2014 Smoking Status: Current every day smoker - Past Family History Mother Family Medical History: Congestive Heart Failure (CHF), Diabetes Mellitus Additional Family Medical History / Comment(s): HEART ISSSUES. Mother of CHF at the age of 69yrs. Father Family Medical History: Blood Disorder Additional Family Medical History / Comment(s): HEMACHROMATOSIS. Father at the age of 69yrs from cirrhosis. He was not a drinker. Medications and Allergies Home Medications Medication Instructions Recorded Confirmed Type RX: Gabapentin 400 mg PO BID 06/24/14 02/11/17 History RX: Hydrocodone/Acetaminophen 1 tab PO Q8H PRN 06/24/14 02/11/17 History [Hydrocodone/Acetaminophen 10-325] RX: Budesonide-Formot 160-4.5 Mcg 2 puff INHALATION RT-BID #1 inhaler 06/29/14 02/11/17 Rx [Symbicort 160-4.5 Mcg Inhaler] RX: Atorvastatin [Lipitor] 80 mg PO HS #30 tab 07/18/14 02/11/17 Rx RX: Nitroglycerin Sl Tabs 0.4 mg SUBLINGUAL Q5M PRN #25 tab 07/18/14 02/11/17 Rx [Nitrostat] RX: Cyanocobalamin [Vitamin B-12] 4,000 mcg PO DAILY 07/21/14 02/11/17 History RX: Multivitamins, Thera 1 tab PO DAILY 07/21/14 02/11/17 History [Multivitamin (formulary)] RX: Primidone [Mysoline] 50 mg PO BID 10/29/14 02/11/17 History RX: Aspirin 81 mg PO DAILY 09/17/15 02/11/17 History RX: Tiotropium [place] [Spiriva] 18 mcg INHALATION RT-DAILY 09/17/15 02/11/17 History RX: Vitamin E 1,000 unit PO DAILY 09/17/15 02/11/17 History RX: Latanoprost Ophth [Xalatan 1 drops LEFT EYE HS 08/05/16 02/11/17 History 0.005%] RX: Clopidogrel [Plavix] 75 mg PO DAILY #30 tab 08/06/16 02/11/17 Rx Albuterol Nebulized [Ventolin 2.5 mg INHALATION RT-QID 12/04/16 02/11/17 History Nebulized] Calcium Carbonate [Calcium] 600 mg PO DAILY 12/04/16 02/11/17 History Magnesium Gluconate [Magonate] 1,000 mg PO DAILY 12/04/16 02/11/17 History Famotidine [Pepcid] 20 mg PO DAILY 02/11/17 02/11/17 History Fludrocortisone [Florinef] 0.1 mg PO DAILY 02/11/17 02/11/17 History Furosemide [Lasix] 20 mg PO DAILY 02/11/17 02/11/17 History Lisinopril [Zestril] 10 mg PO DAILY 02/11/17 02/11/17 History Metoprolol Succinate (ER) [Toprol 50 mg PO DAILY 02/11/17 02/11/17 History Xl] Spironolactone [Aldactone] 25 mg PO BID 02/11/17 02/11/17 History buPROPion XL [Wellbutrin Xl] 150 mg PO DAILY 02/11/17 02/11/17 History Allergies Allergy/AdvReac Type Severity Reaction Status Date / Time No Known Allergies Allergy Verified 02/11/17 08:25 Physical Exam Osteopathic Statement: *. No significant issues noted on an osteopathic structural exam other than those noted in the History and Physical/Consult. Vitals: Vital Signs Temp Pulse Pulse Resp BP BP Pulse Ox 02/11/17 15:00 97.6 F 83 18 124/63 94 L 02/11/17 14:24 18 02/11/17 12:00 78 02/11/17 11:54 82 02/11/17 11:40 97.0 F L 82 18 127/72 91 L 02/11/17 11:37 97.8 F 82 18 126/62 96 02/11/17 11:29 97.8 F 82 18 126/62 96 02/11/17 10:22 98 02/11/17 09:20 82 18 116/59 98 02/11/17 08:49 79 20 98 02/11/17 08:02 75 20 135/63 94 L 02/11/17 06:10 72 20 141/72 97 02/11/17 04:13 73 20 139/78 95 02/11/17 03:11 97.4 F L 75 20 130/72 95 02/11/17 01:53 24 02/11/17 01:02 97.9 F 88 22 156/93 100 Intake and Output 02/11/17 02/11/17 02/11/17 06:59 14:59 22:59 Intake Total 1200 Balance 1200 Intake: Oral 1200 Other: # Voids 2 Weight 47.627 kg 47.627 kg Patient Weight 02/12/17 06:59 Weight 47.627 kg General: [Patient awake, alert and oriented times 3. Patient in no acute distress.] HEENT: [PERRL. EOMI. No pharyngeal erythema or exudate.] Neck: [No adenopathy.] Cardiac: [Heart regular in rate and rhythm. No S3. No S4. No clicks, rubs. No murmur.] Lungs: Diminished breath sounds bilaterally, expiration or wheezes bilaterally Abdomen: [No mass. No organomegaly. Bowel sounds presnt and normoactive in all 4 quadrants.] Extremes: [No edema no cyanosis no claudication normal pulses] : [] Musculoskeletal: [No joint erythema, edema or tenderness.] Skin: [No rash.] Neurologic: [No lateralizing deficits. CN II - XII grossly intact.] Lymphatic: [No adenopathy.] Results CBC & Chem 7: 02/11/17 01:08 02/11/17 01:08 Labs: Abnormal Lab Results - Last 24 Hours (Table) 02/11/17 02/11/17 02/11/17 Range/Units 01:08 01:08 01:08 Hgb 10.6 L (11.4-16.0) gm/dL MCHC 30.7 L (31.0-37.0) g/dL RDW 16.6 H (11.5-15.5) % INR (<1.2) Sodium 135 L (137-145) mmol/L Glucose 201 H (74-99) mg/dL POC Glucose (mg/dL) (75-99) mg/dL AST 83 H (14-36) U/L ALT 65 H (9-52) U/L Alkaline Phosphatase 144 H (38-126) U/L CK-MB (CK-2) 3.1 H* (0.0-2.4) ng/mL Total Protein 6.2 L (6.3-8.2) g/dL 02/11/17 02/11/17 Range/Units 01:08 12:40 Hgb (11.4-16.0) gm/dL MCHC (31.0-37.0) g/dL RDW (11.5-15.5) % INR 1.2 H (<1.2) Sodium (137-145) mmol/L Glucose (74-99) mg/dL POC Glucose (mg/dL) 145 H (75-99) mg/dL AST (14-36) U/L ALT (9-52) U/L Alkaline Phosphatase (38-126) U/L CK-MB (CK-2) (0.0-2.4) ng/mL Total Protein (6.3-8.2) g/dL Thrombosis Risk Factor Assmnt - DVT/VTE Prophylaxis DVT/VTE Prophylaxis: Pharmacologic Prophylaxis ordered - Choose All That Apply Any of the Below Risk Factors Present?: Yes Each Factor Represents 1 point: Abnormal pulmonary function (COPD), Serious lung disease incl. pneumonia (< 1month) Other Risk Factors: Yes Each Risk Factor Represents 2 Points: Age 61-74 years, Malignancy Other congenital or acquired thrombophilia - If yes, enter type in comment: No Thrombosis Risk Factor Assessment Total Risk Factor Score: 6 Thrombosis Risk Factor Assessment Level: High Risk Assessment and Plan (1) Acute respiratory failure Narrative/Plan: Patient has known congestive heart failure as well as chronic COPD and chronic cigarette smoker Status: Acute (2) COPD (chronic obstructive pulmonary disease) Narrative/Plan: Acute exacerbation chronic COPD chronic cigarette smoker recent 4 vessel CABG with valve replacement Status: Acute (3) Acute systolic ACC/AHA stage C congestive heart failure Narrative/Plan: Acute exacerbation of chronic COPD with brain natriuretic protein of 7500 Mild congestive heart failure Status: Acute (4) COPD (chronic obstructive pulmonary disease) Narrative/Plan: Acute exacerbation chronic COPD Status: Acute Plan: O2 per nasal cannula to maintain sats above 92% Spiriva, long acting inhaled corticosteroid, albuterol Patient is also getting IV Lasix Consultation with pulmonology Patient has been started on nicotine patch and she has been recommended to cease and desist cigarette smoking
[2017-02-11] MEDS: NICOTINE 14MG/24HR PATCH TRANSDERM SCH (17:19)
[2017-02-11] MEDS: INSULIN LISPRO (humaLOG) 300 UNIT/3 ML VIAL SQ SCH ×2 (17:20→21:30)
--- NOTE | 2017-02-11 19:03 | P.CNPUL ---
History of Present Illness Consult date: 02/11/17 Reason for consult: dyspnea History of present illness: 61-year-old female patient who presents emergency department with increased shortness of breath. Some limited cough and congestion. No fever chills or night sweats. No major swelling lower extremities. No orthopnea. The patient is known to me. She has history of COPD. She also has history of coronary artery disease and she has undergone four-vessel bypass surgery. No sick contacts. No travel history. She claims that she has been compliant to her medications however she has been smoking cigarettes. She has been maintained on Spiriva one ablation a day, Symbicort 160/4.5 2 puffs twice a day and she also has Ventolin rescue inhaler which she has been using on outpatient basis on an as-needed basis. Her chest x-ray showed some increased right lung base opacity probably an area of atelectasis. There is also elevation of the right hemidiaphragm. No other changes seen. The left lung is essentially within normal limits. There are some stable postoperative changes. The patient's proBNP level was 7 300. Lactic acid was 1.6 at time of admission. Rest of the electrodes are within normal limits. Troponin is negative. The right-sided count is not elevated. The pulmonary consultation was requested. Note that this patient has history of advanced COPD. She also has had an underlying congestion heart failure and peripheral vascular disease along with hypertension and hyperlipidemia and coronary artery disease. Her most recent echocardiogram that was done from November 2016 showed global hypokinesis with an ejection fraction of less than 20% and moderate degree of pulmonary hypertension with right ventricular systolic pressure of around 61. Mild-to- moderate tricuspid regurgitation. No aortic regurgitation. Review of Systems Constitutional: Reports fatigue Eyes: denies blurred vision, denies bulging eye, denies decreased vision Ears: deny: decreased hearing, ear discharge, earache Ears, nose, mouth and throat: Denies headache, Denies sore throat Cardiovascular: Reports claudication, Reports decreased exercise tolerance, Reports dyspnea on exertion, Reports shortness of breath Respiratory: Reports dyspnea Gastrointestinal: Denies abdominal pain, Denies diarrhea, Denies nausea, Denies vomiting Genitourinary: Denies dysuria, Denies hematuria Musculoskeletal: Reports as per HPI Musculoskeletal: absent: ankle pain, ankle stiffness, ankle swelling Integumentary: Denies pruritus, Denies rash Neurological: Denies numbness, Denies weakness Psychiatric: Denies anxiety, Denies depression Endocrine: Denies fatigue, Denies weight change Past Medical History Past Medical History: Coronary Artery Disease (CAD), Cancer, Heart Failure, COPD , Eye Disorder, GERD/Reflux, Hyperlipidemia, Myocardial Infarction (NM), Pneumonia, Respiratory Disorder, Vascular Disorder Additional Past Medical History / Comment(s): COPD, chronic hypoxic respiratory failure, CHF with an ejection fraction of less than 20% with significant degree of secondary pulmonary hypertension, ischemic cardiac myopathy, O2 1.5L/NC at HS , celiac disease, breast cancer involving the right breast with previous lumpectomy followed by radiation therapy, osteoporosis, PAD, chronic pain L wrist (previous injury with sx),osteoporosis, L eye possible glaucoma, sinus problems. Last Myocardial Infarction Date:: 2014 History of Any Multi-Drug Resistant Organisms: None Reported Past Surgical History: Breast Surgery, Section, Coronary Bypass/CABG, Heart Catheterization With Stent, Orthopedic Surgery Additional Past Surgical History / Comment(s): 11/2016 CABG 4 vessel with mitral/ tricuspid surgery at [facility]-also had thoracentesis, R breast lumpectomy, L WRIST SX X3, D&C, 11-01-14 AORTAGRAM W/RUNOFF- CECILIO ILIAC STENTS, colonoscopy. Past Anesthesia/Blood Transfusion Reactions: No Reported Reaction Date of Last Stent Placement:: 2014 Smoking Status: Current every day smoker - Past Family History Mother Family Medical History: Congestive Heart Failure (CHF), Diabetes Mellitus Additional Family Medical History / Comment(s): HEART ISSSUES. Mother of CHF at the age of 69yrs. Father Family Medical History: Blood Disorder Additional Family Medical History / Comment(s): HEMACHROMATOSIS. Father at the age of 69yrs from cirrhosis. He was not a drinker. Medications and Allergies Home Medications Medication Instructions Recorded Confirmed Type Gabapentin 400 mg PO BID 06/24/14 02/11/17 History Hydrocodone/Acetaminophen 1 tab PO Q8H PRN 06/24/14 02/11/17 History [Hydrocodone/Acetaminophen 10-325] Budesonide-Formot 160-4.5 Mcg 2 puff INHALATION RT-BID #1 inhaler 06/29/1402/11 Rx [Symbicort 160-4.5 Mcg Inhaler] Atorvastatin [Lipitor] 80 mg PO HS #30 tab 02/05/15 09/01/17 Rx Nitroglycerin Sl Tabs [Nitrostat] 0.4 mg SUBLINGUAL Q5M PRN #25 tab 07/18/1406/29 Rx Cyanocobalamin [Vitamin B-12] 4,000 mcg PO DAILY 07/21/14 02/11/17 History Multivitamins, Thera [Multivitamin 1 tab PO DAILY 07/21/14 02/11/17 History (formulary)] Primidone [Mysoline] 50 mg PO BID 10/29/14 02/11/17 History Aspirin 81 mg PO DAILY 09/17/15 02/11/17 History Tiotropium [place] [Spiriva] 18 mcg INHALATION RT-DAILY 09/17/15 02/11/17 History Vitamin E 1,000 unit PO DAILY 09/17/15 02/11/17 History Latanoprost Ophth [Xalatan 0.005%] 1 drops LEFT EYE HS 08/05/16 02/11/17 History Clopidogrel [Plavix] 75 mg PO DAILY #30 tab 08/06/16 02/11/17 Rx Albuterol Nebulized [Ventolin 2.5 mg INHALATION RT-QID 12/04/16 02/11/17 History Nebulized] Calcium Carbonate [Calcium] 600 mg PO DAILY 12/04/16 02/11/17 History Magnesium Gluconate [Magonate] 1,000 mg PO DAILY 12/04/16 02/11/17 History Famotidine [Pepcid] 20 mg PO DAILY 02/11/17 02/11/17 History Fludrocortisone [Florinef] 0.1 mg PO DAILY 02/11/17 02/11/17 History Furosemide [Lasix] 20 mg PO DAILY 02/11/17 02/11/17 History Lisinopril [Zestril] 10 mg PO DAILY 02/11/17 02/11/17 History Metoprolol Succinate (ER) [Toprol 50 mg PO DAILY 02/11/17 02/11/17 History Xl] Spironolactone [Aldactone] 25 mg PO BID 02/11/17 02/11/17 History buPROPion XL [Wellbutrin Xl] 150 mg PO DAILY 02/11/17 02/11/17 History Allergies Allergy/AdvReac Type Severity Reaction Status Date / Time No Known Allergies Allergy Verified 02/11/17 08:25 Physical Exam Vitals: Vital Signs Temp Pulse Pulse Resp BP BP Pulse Ox 02/11/17 17:14 78 02/11/17 16:59 80 97 02/11/17 15:00 97.6 F 83 18 124/63 94 L 02/11/17 14:24 18 02/11/17 12:00 78 02/11/17 11:54 82 02/11/17 11:40 97.0 F L 82 18 127/72 91 L 02/11/17 11:37 97.8 F 82 18 126/62 96 02/11/17 11:29 97.8 F 82 18 126/62 96 02/11/17 10:22 98 02/11/17 09:20 82 18 116/59 98 02/11/17 08:49 79 20 98 02/11/17 08:02 75 20 135/63 94 L 02/11/17 06:10 72 20 141/72 97 02/11/17 04:13 73 20 139/78 95 02/11/17 03:11 97.4 F L 75 20 130/72 95 02/11/17 01:53 24 02/11/17 01:02 97.9 F 88 22 156/93 100 Intake and Output 02/11/17 02/11/17 02/11/17 06:59 14:59 22:59 Intake Total 1200 Balance 1200 Intake: Oral 1200 Other: # Voids 2 Weight 47.627 kg 47.627 kg Patient Weight 02/12/17 06:59 Weight 47.627 kg Head exam was generally normal. There was no scleral icterus or corneal arcus. Mucous membranes were moist. Examination of the neck shows positive JVDs.Neck was supple and with jugular venous distension, thyromegaly, or carotid bruits. Carotids were easily palpable bilaterally. There was no adenopathy. Lung sounds are diminished bilaterally, especially in the lung bases along with some scattered expiratory wheezes and few cracks in lung bases bilaterally. Heart sounds are regular, distant, normal S1-S2 and there is a certain which is stable clean and intact at this point.Abdominal exam revealed normal bowel sounds. The abdomen was soft, non-tender, and without masses, organomegaly, or appreciable enlargement of the abdominal aorta.Examination of the extremities revealed easily palpable radial, femoral and pedal pulses. There was no cyanosis , clubbing or edema. Results - Laboratory Findings CBC and BMP: 02/11/17 01:08 02/11/17 01:08 PT/INR, D-dimer PT 11.7 sec (9.0-12.0) 02/11/17 01:08 INR 1.2 (<1.2) H 02/11/17 01:08 Abnormal lab findings: Abnormal Labs 02/11/17 02/11/17 02/11/17 01:08 01:08 01:08 Hgb 10.6 L MCHC 30.7 L RDW 16.6 H INR Sodium 135 L Glucose 201 H POC Glucose (mg/dL) AST 83 H ALT 65 H Alkaline Phosphatase 144 H CK-MB (CK-2) 3.1 H* Total Protein 6.2 L 02/11/17 02/11/17 02/11/17 01:08 12:40 16:54 Hgb MCHC RDW INR 1.2 H Sodium Glucose POC Glucose (mg/dL) 145 H 171 H AST ALT Alkaline Phosphatase CK-MB (CK-2) Total Protein - Diagnostic Findings Chest x-ray: image reviewed Assessment and Plan Plan: Assessment 1 shortness of breath secondary to combination of COPD/CHF exacerbation. Chest x-ray was reviewed and there is no acute pneumonia nor there is any overt signs of failure. ProBNP level is elevated. Cardiac enzymes are negative. 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 In terms of COPD, we'll put the patient on albuterol about treatments 4 times a day [id number], we'll put the patient a combination of Symbicort and tiotropium which are as maintenance inhalers. She'll be given IV 7 medical 60 mg IV push every 6 hours. She'll be also placed on Lasix and I will suggest going with IV Lasix 40 mg every 12 hours for the next 24 hours. Monitor electrolytes. Monitor fluid balance. Monitor clinical progress. Outpatient medication be ordered resume. We'll continue to follow. Smoking cessation counseling was done knowing that this is one of the major potential triggers for her COPD exacerbation.
[2017-02-11 21:02] LABS: Glucose,Whole Blood 163 mg/dL (75-99)
[2017-02-11] MEDS: ATORVASTATIN 80 MG TAB PO SCH (21:27)
[2017-02-11] MEDS: LATANOPROST 0.005% OPHTH DROPS 2.5 ML BTL LEFT EYE SCH (21:27)
[2017-02-11] MEDS: FUROSEMIDE 10 MG/ML 4 ML VIAL IV SCH (21:29)
[2017-02-11 22:17] LABS: Hemoglobin A1C 5.5 % (4.2-6.1)
[2017-02-12] MEDS: methylPREDNISolone SOD SUCCI 125 MG/2 ML VIAL IV SCH ×4 (00:04→16:56)
[2017-02-12] MEDS: ALPRAZolam 0.5 MG TAB PO PRN (00:04)
[2017-02-12] MEDS: HYDROcodone/APAP 10-325MG 1 EACH TAB PO PRN ×3 (00:30→17:08)
[2017-02-12 07:43] LABS: Glucose,Whole Blood 145 mg/dL (75-99)
[2017-02-12] MEDS: TIOTROPIUM 18 MCG/PUFF INHALER INHALATION SCH ×2 (07:58→08:20)
[2017-02-12] MEDS: SYMBICORT 160-4.5 MCG INHALER INHALATION SCH ×2 (07:58→08:20)
[2017-02-12] MEDS: ALBUTEROL NEBULIZED 2.5 MG/3 ML INHALATION SCH ×4 (07:58→20:10)
[2017-02-12] MEDS: INSULIN LISPRO (humaLOG) 300 UNIT/3 ML VIAL SQ SCH ×4 (08:02→21:28)
[2017-02-12] MEDS: ASPIRIN 81 MG CHEW PO SCH (08:03)
[2017-02-12] MEDS: buPROPion XL 150 MG TAB.ER.24H PO SCH (08:04)
[2017-02-12] MEDS: CLOPIDOGREL 75 MG TAB PO SCH (08:04)
[2017-02-12] MEDS: GABAPENTIN 400 MG CAP PO SCH ×2 (08:05→21:27)
[2017-02-12] MEDS: FUROSEMIDE 10 MG/ML 4 ML VIAL IV SCH ×2 (08:06→08:21)
[2017-02-12] MEDS: METOPROLOL SUCCINATE (ER) 25 MG TAB.ER.24H PO SCH ×2 (08:06→21:28)
[2017-02-12] MEDS: PARoxetine 20 MG TAB PO SCH (08:06)
[2017-02-12] MEDS: NICOTINE 14MG/24HR PATCH TRANSDERM SCH (08:06)
[2017-02-12] MEDS: PRIMIDONE 50 MG TAB PO SCH ×2 (08:07→21:27)
[2017-02-12] MEDS: SPIRONOLACTONE 25 MG TAB PO SCH ×2 (08:07→21:26)
[2017-02-12] MEDS: LISINOPRIL 5 MG TAB PO SCH (09:06)
[2017-02-12] MEDS: MULTIVITAMINS, THERA 1 EACH TAB PO SCH (11:08)
[2017-02-12] MEDS: MAGNESIUM OXIDE 400 MG TAB PO SCH (11:08)
[2017-02-12] MEDS: CYANOCOBALAMIN 500 MCG TAB PO SCH (11:08)
[2017-02-12] MEDS: VITAMIN E (DL,TOCOPHERYL ACET) 400 UNIT CAP PO SCH (11:08)
[2017-02-12] MEDS: CALCIUM CARBONATE 500 MG CHEWABLE PO SCH (11:08)
--- NOTE | 2017-02-12 11:22 | P.PN ---
Subjective Principal diagnosis: Shortness of breath Patient is awake alert oriented good spirits. Sats are 90% on 2 L nasal cannula. BNP was 7500 will increase Lasix to 80 mg by mouth +[address] Cardoso. Patient's weight is up 1 pound today. Objective - Vital Signs Vital signs: Vital Signs Temp 98.3 F 02/12/17 07:00 Pulse 74 02/12/17 08:31 Resp 22 02/12/17 07:00 BP 133/68 02/12/17 07:00 Pulse Ox 90 L 02/12/17 07:00 Intake & Output 02/11/17 02/12/17 02/12/17 18:59 06:59 18:59 Intake Total 1200 Output Total 5 Balance 1200 -5 Weight 47.627 kg 48.5 kg Intake: Oral 1200 Output: Urine 5 Other: # Voids 2 4 - Exam General: [Patient awake, alert and oriented times 3. Patient in no acute distress.] HEENT: [PERRL. EOMI. No pharyngeal erythema or exudate.] Neck: [No adenopathy.] Cardiac: [Heart regular in rate and rhythm. No S3. No S4. No clicks, rubs. No murmur.] Lungs: [Clear to auscultation bilaterally.] Abdomen: [No mass. No organomegaly. Bowel sounds presnt and normoactive in all 4 quadrants.] Extremes: [No edema no cyanosis no claudication normal pulses] : [] Musculoskeletal: [No joint erythema, edema or tenderness.] Skin: [No rash.] Neurologic: [No lateralizing deficits. CN II - XII grossly intact.] Lymphatic: [No adenopathy.] - Labs CBC & Chem 7: 02/11/17 01:08 02/11/17 01:08 Labs: Abnormal Lab Results - Last 24 Hours (Table) 02/11/17 02/11/17 02/11/17 Range/Units 12:40 16:54 20:55 POC Glucose (mg/dL) 145 H 171 H 163 H (75-99) mg/dL 02/12/17 Range/Units 07:39 POC Glucose (mg/dL) 145 H (75-99) mg/dL Microbiology - Last 24 Hours (Table) 02/11/17 01:08 Blood Culture - Preliminary Blood No Growth after 24 hours Assessment and Plan (1) Acute respiratory failure Narrative/Plan: Patient has known congestive heart failure as well as chronic COPD and chronic cigarette smoker Aggressive diuresis Status: Acute (2) COPD (chronic obstructive pulmonary disease) Narrative/Plan: Acute exacerbation chronic COPD chronic cigarette smoker recent 4 vessel CABG with valve replacement We'll continue Spiriva and Pulmicort and albuterol Status: Acute (3) Acute systolic ACC/AHA stage C congestive heart failure Narrative/Plan: Acute exacerbation of chronic COPD with brain natriuretic protein of 7500 Mild congestive heart failure, increase Lasix Status: Acute (4) COPD (chronic obstructive pulmonary disease) Narrative/Plan: Acute exacerbation chronic COPD Status: Acute
[2017-02-12 12:31] LABS: Glucose,Whole Blood 152 mg/dL (75-99)
--- NOTE | 2017-02-12 13:37 | P.PN ---
Subjective 61-year-old female patient who presents emergency department with increased shortness of breath. Some limited cough and congestion. No fever chills or night sweats. No major swelling lower extremities. No orthopnea. The patient is known to me. She has history of COPD. She also has history of coronary artery disease and she has undergone four-vessel bypass surgery. No sick contacts. No travel history. She claims that she has been compliant to her medications however she has been smoking cigarettes. She has been maintained on Spiriva one ablation a day, Symbicort 160/4.5 2 puffs twice a day and she also has Ventolin rescue inhaler which she has been using on outpatient basis on an as-needed basis. Her chest x-ray showed some increased right lung base opacity probably an area of atelectasis. There is also elevation of the right hemidiaphragm. No other changes seen. The left lung is essentially within normal limits. There are some stable postoperative changes. The patient's proBNP level was 7 300. Lactic acid was 1.6 at time of admission. Rest of the electrodes are within normal limits. Troponin is negative. The right-sided count is not elevated. The pulmonary consultation was requested. Note that this patient has history of advanced COPD. She also has had an underlying congestion heart failure and peripheral vascular disease along with hypertension and hyperlipidemia and coronary artery disease. Her most recent echocardiogram that was done from November 2016 showed global hypokinesis with an ejection fraction of less than 20% and moderate degree of pulmonary hypertension with right ventricular systolic pressure of around 61. Mild-to- moderate tricuspid regurgitation. No aortic regurgitation. The patient is seen again today 02/12/2017 in follow-up on the regular medical floor. She is awake and alert in no acute distress. She is breathing better today as compared to yesterday but not quite back to her baseline. She is still dyspneic on minimal exertion. Continue O2 saturations in the 90s on 2 L/ m per nasal cannula. She's been afebrile. Blood cultures reveal no growth to date. Objective - Vital Signs Vital signs: Vital Signs Temp 98.3 F 02/12/17 07:00 Pulse 78 02/12/17 11:37 Resp 22 02/12/17 07:00 BP 133/68 02/12/17 07:00 Pulse Ox 90 L 02/12/17 07:00 Intake & Output 02/11/17 02/12/17 02/12/17 18:59 06:59 18:59 Intake Total 1200 Output Total 5 Balance 1200 -5 Weight 47.627 kg 48.5 kg Intake: Oral 1200 Output: Urine 5 Other: # Voids 2 4 - Exam Head exam was generally normal. There was no scleral icterus or corneal arcus. Mucous membranes were moist. Examination of the neck shows positive JVDs.Neck was supple and with jugular venous distension, thyromegaly, or carotid bruits. Carotids were easily palpable bilaterally. There was no adenopathy. Lung sounds are diminished bilaterally, especially in the lung bases along with some scattered expiratory wheezes and few cracks in lung bases bilaterally. Heart sounds are regular, distant, normal S1-S2 and there is a certain which is stable clean and intact at this point.Abdominal exam revealed normal bowel sounds. The abdomen was soft, non-tender, and without masses, organomegaly, or appreciable enlargement of the abdominal aorta.Examination of the extremities revealed easily palpable radial, femoral and pedal pulses. There was no cyanosis , clubbing or edema. - Labs CBC & Chem 7: 02/11/17 01:08 02/11/17 01:08 Labs: Abnormal Lab Results - Last 24 Hours (Table) 02/11/17 02/11/17 02/12/17 Range/Units 16:54 20:55 07:39 POC Glucose (mg/dL) 171 H 163 H 145 H (75-99) mg/dL 02/12/17 Range/Units 11:52 POC Glucose (mg/dL) 152 H (75-99) mg/dL Microbiology - Last 24 Hours (Table) 02/11/17 01:08 Blood Culture - Preliminary Blood No Growth after 24 hours Assessment and Plan Plan: Assessment 1 shortness of breath secondary to combination of COPD/CHF exacerbation. Chest x-ray was reviewed and there is no acute pneumonia nor there is any overt signs of failure. ProBNP level is elevated. Cardiac enzymes are negative. 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 Cardoso. She is improved today as compared to yesterday. We'll continue to treat both the CHF and COPD. We will increase her activity as tolerated. She is again educated regarding the importance of complete smoking cessation. We'll continue to follow.
[2017-02-12 17:28] LABS: Glucose,Whole Blood 141 mg/dL (75-99)
[2017-02-12] MEDS: LATANOPROST 0.005% OPHTH DROPS 2.5 ML BTL LEFT EYE SCH (21:26)
[2017-02-12] MEDS: ATORVASTATIN 80 MG TAB PO SCH (21:26)
[2017-02-12 21:33] LABS: Glucose,Whole Blood 164 mg/dL (75-99)
[2017-02-13] MEDS: ALPRAZolam 0.5 MG TAB PO PRN (00:19)
[2017-02-13] MEDS: methylPREDNISolone SOD SUCCI 125 MG/2 ML VIAL IV SCH ×3 (00:19→14:08)
[2017-02-13] MEDS: HYDROcodone/APAP 10-325MG 1 EACH TAB PO PRN ×2 (01:22→09:40)
[2017-02-13 07:22] LABS: Glucose,Whole Blood 142 mg/dL (75-99)
[2017-02-13 07:36] VITALS: BP 136/66; RESP 20; TEMP 96.2
[2017-02-13] MEDS: SYMBICORT 160-4.5 MCG INHALER INHALATION SCH (08:02)
[2017-02-13] MEDS: ALBUTEROL NEBULIZED 2.5 MG/3 ML INHALATION SCH ×2 (08:02→11:20)
[2017-02-13] MEDS: TIOTROPIUM 18 MCG/PUFF INHALER INHALATION SCH (08:02)
[2017-02-13] MEDS: CLOPIDOGREL 75 MG TAB PO SCH (08:24)
[2017-02-13] MEDS: ASPIRIN 81 MG CHEW PO SCH (08:25)
[2017-02-13] MEDS: INSULIN LISPRO (humaLOG) 300 UNIT/3 ML VIAL SQ SCH ×2 (08:25→14:08)
[2017-02-13] MEDS: PRIMIDONE 50 MG TAB PO SCH (08:25)
[2017-02-13] MEDS: GABAPENTIN 400 MG CAP PO SCH (08:25)
[2017-02-13] MEDS: METOPROLOL SUCCINATE (ER) 25 MG TAB.ER.24H PO SCH (08:25)
[2017-02-13] MEDS: buPROPion XL 150 MG TAB.ER.24H PO SCH (08:25)
[2017-02-13] MEDS: PARoxetine 20 MG TAB PO SCH (08:25)
[2017-02-13] MEDS: SPIRONOLACTONE 25 MG TAB PO SCH (08:25)
[2017-02-13] MEDS: LISINOPRIL 5 MG TAB PO SCH (08:25)
[2017-02-13] MEDS: FUROSEMIDE 10 MG/ML 4 ML VIAL IV SCH (08:26)
[2017-02-13] MEDS: NICOTINE 14MG/24HR PATCH TRANSDERM SCH (08:26)
[2017-02-13] MEDS ORDERED: FUROSEMIDE 80 MG TAB PO SCH (09:00)
[2017-02-13 11:32] VITALS: PULSE 76
--- NOTE | 2017-02-13 12:18 | P.DS ---
Providers Date of admission: 02/11/17 03:04 Expected date of discharge: 02/13/17 Attending physician: Duarte Figueredo Consults: 02/11/17 14:09 Consult Physician Routine Consulting Provider: Jessica Cardoso Consult Reason/Comments: acute resp failure, copd Do you want consulting provider notified?: Yes Primary care physician: Duarte Figueredo - Discharge Diagnosis(es) (1) Acute respiratory failure Acute exacerbation chronic COPD, patient smokes about 10 cigarettes a day she had quit and began smoking again I think this is a big part of her being readmitted to the hospital with some frequency. We talked at length about smoking cessation starter on the Habitrol patch 14 g we'll send her home with this as well We will also send her home with Lasix 40 mg twice daily And prednisone 20 mg daily 7 days General: [Patient awake, alert and oriented times 3. Patient in no acute distress.] HEENT: [PERRL. EOMI. No pharyngeal erythema or exudate.] Neck: [No adenopathy.] Cardiac: [Heart regular in rate and rhythm. No S3. No S4. No clicks, rubs. No murmur.] Lungs: [Clear to auscultation bilaterally. But diminished bilaterally Abdomen: [No mass. No organomegaly. Bowel sounds presnt and normoactive in all 4 quadrants.] Extremes: [No edema no cyanosis no claudication normal pulses] : [] Musculoskeletal: [No joint erythema, edema or tenderness.] Skin: [No rash.] Neurologic: [No lateralizing deficits. CN II - XII grossly intact.] Lymphatic: [No adenopathy.] Current Visit: Yes Status: Acute (2) COPD (chronic obstructive pulmonary disease) Long-standing history of cigarette smoking, recent quadruple CABG and valve replacement Recommending smoking cessation, still smokes this probably will be difficult for Current Visit: Yes Status: Acute (3) Acute systolic ACC/AHA stage C congestive heart failure Patient is up walking around without oxygen sats are in the 90s Congestive heart failure has resolved or is resolving Current Visit: No Status: Acute (4) COPD (chronic obstructive pulmonary disease) Current Visit: No Status: Acute Patient Condition at Discharge: Stable Plan - Discharge Summary New Discharge Prescriptions: New Furosemide [Lasix] 40 mg PO BID #60 tablet Nicotine 14Mg/24Hr Patch [Habitrol 14Mg/24Hr Patch] 1 patch TRANSDERM DAILY # 60 patch predniSONE 20 mg PO DAILY #7 tab No Action Hydrocodone/Acetaminophen [Hydrocodone/Acetaminophen 10-325] 1 tab PO Q8H PRN PRN Reason: Pain Gabapentin 400 mg PO BID Budesonide-Formot 160-4.5 Mcg [Symbicort 160-4.5 Mcg Inhaler] 2 puff INHALATION RT-BID #1 inhaler Atorvastatin [Lipitor] 80 mg PO HS #30 tab Nitroglycerin Sl Tabs [Nitrostat] 0.4 mg SUBLINGUAL Q5M PRN #25 tab PRN Reason: Chest Pain Cyanocobalamin [Vitamin B-12] 4,000 mcg PO DAILY Multivitamins, Thera [Multivitamin (formulary)] 1 tab PO DAILY Primidone [Mysoline] 50 mg PO BID Vitamin E 1,000 unit PO DAILY Tiotropium [place] [Spiriva] 18 mcg INHALATION RT-DAILY Aspirin 81 mg PO DAILY Latanoprost Ophth [Xalatan 0.005%] 1 drops LEFT EYE HS Clopidogrel [Plavix] 75 mg PO DAILY #30 tab Albuterol Nebulized [Ventolin Nebulized] 2.5 mg INHALATION RT-QID Calcium Carbonate [Calcium] 600 mg PO DAILY Magnesium Gluconate [Magonate] 1,000 mg PO DAILY Fludrocortisone [Florinef] 0.1 mg PO DAILY Lisinopril [Zestril] 10 mg PO DAILY Famotidine [Pepcid] 20 mg PO DAILY Metoprolol Succinate (ER) [Toprol Xl] 50 mg PO DAILY Spironolactone [Aldactone] 25 mg PO BID buPROPion XL [Wellbutrin Xl] 150 mg PO DAILY Furosemide [Lasix] 40 mg PO DAILY predniSONE See Taper PO DAILY Discharge Medication List Gabapentin 400 mg PO BID 06/24/14 [History] Hydrocodone/Acetaminophen [Hydrocodone/Acetaminophen 10-325] 1 tab PO Q8H PRN [History] Budesonide-Formot 160-4.5 Mcg [Symbicort 160-4.5 Mcg Inhaler] 2 puff INHALATION RT-BID #1 inhaler 06/29/14 [Rx] Atorvastatin [Lipitor] 80 mg PO HS #30 tab 07/18/14 [Rx] Nitroglycerin Sl Tabs [Nitrostat] 0.4 mg SUBLINGUAL Q5M PRN #25 tab 07/18/14 [Rx ] Cyanocobalamin [Vitamin B-12] 4,000 mcg PO DAILY 07/21/14 [History] Multivitamins, Thera [Multivitamin (formulary)] 1 tab PO DAILY 07/21/14 [History ] Primidone [Mysoline] 50 mg PO BID 10/29/14 [History] Aspirin 81 mg PO DAILY 09/17/15 [History] Tiotropium [place] [Spiriva] 18 mcg INHALATION RT-DAILY 09/17/15 [History] Vitamin E 1,000 unit PO DAILY 09/17/15 [History] Latanoprost Ophth [Xalatan 0.005%] 1 drops LEFT EYE HS 08/05/16 [History] Clopidogrel [Plavix] 75 mg PO DAILY #30 tab 08/06/16 [Rx] Albuterol Nebulized [Ventolin Nebulized] 2.5 mg INHALATION RT-QID 12/04/16 [ History] Calcium Carbonate [Calcium] 600 mg PO DAILY 12/04/16 [History] Magnesium Gluconate [Magonate] 1,000 mg PO DAILY 12/04/16 [History] Famotidine [Pepcid] 20 mg PO DAILY 02/11/17 [History] Fludrocortisone [Florinef] 0.1 mg PO DAILY 02/11/17 [History] Furosemide [Lasix] 40 mg PO DAILY 02/11/17 [History] Lisinopril [Zestril] 10 mg PO DAILY 02/11/17 [History] Metoprolol Succinate (ER) [Toprol Xl] 50 mg PO DAILY 02/11/17 [History] Spironolactone [Aldactone] 25 mg PO BID 02/11/17 [History] buPROPion XL [Wellbutrin Xl] 150 mg PO DAILY 02/11/17 [History] Furosemide [Lasix] 40 mg PO BID #60 tablet 02/13/17 [Rx] Nicotine 14Mg/24Hr Patch [Habitrol 14Mg/24Hr Patch] 1 patch TRANSDERM DAILY #60 patch 02/13/17 [Rx] predniSONE 20 mg PO DAILY #7 tab 02/13/17 [Rx] predniSONE See Taper PO DAILY 02/13/17 [History] Follow up Appointment(s)/Referral(s): Bea,Duarte Jr, DO [Primary Care Provider] - 1-2 days Patient Instructions/Handouts: Heart Failure (DC) Discharge Disposition: HOME SELF-CARE
[2017-02-13] MEDS: MULTIVITAMINS, THERA 1 EACH TAB PO SCH (12:25)
[2017-02-13] MEDS: CALCIUM CARBONATE 500 MG CHEWABLE PO SCH (12:25)
[2017-02-13] MEDS: MAGNESIUM OXIDE 400 MG TAB PO SCH (12:25)
[2017-02-13] MEDS: VITAMIN E (DL,TOCOPHERYL ACET) 400 UNIT CAP PO SCH (12:25)
[2017-02-13] MEDS: CYANOCOBALAMIN 500 MCG TAB PO SCH (12:25)
--- NOTE | 2017-02-13 16:31 | P.PN ---
Subjective 61-year-old female patient who presents emergency department with increased shortness of breath. Some limited cough and congestion. No fever chills or night sweats. No major swelling lower extremities. No orthopnea. The patient is known to me. She has history of COPD. She also has history of coronary artery disease and she has undergone four-vessel bypass surgery. No sick contacts. No travel history. She claims that she has been compliant to her medications however she has been smoking cigarettes. She has been maintained on Spiriva one ablation a day, Symbicort 160/4.5 2 puffs twice a day and she also has Ventolin rescue inhaler which she has been using on outpatient basis on an as-needed basis. Her chest x-ray showed some increased right lung base opacity probably an area of atelectasis. There is also elevation of the right hemidiaphragm. No other changes seen. The left lung is essentially within normal limits. There are some stable postoperative changes. The patient's proBNP level was 7 300. Lactic acid was 1.6 at time of admission. Rest of the electrodes are within normal limits. Troponin is negative. The right-sided count is not elevated. The pulmonary consultation was requested. Note that this patient has history of advanced COPD. She also has had an underlying congestion heart failure and peripheral vascular disease along with hypertension and hyperlipidemia and coronary artery disease. Her most recent echocardiogram that was done from November 2016 showed global hypokinesis with an ejection fraction of less than 20% and moderate degree of pulmonary hypertension with right ventricular systolic pressure of around 61. Mild-to- moderate tricuspid regurgitation. No aortic regurgitation. The patient is seen again today 02/12/2017 in follow-up on the regular medical floor. She is awake and alert in no acute distress. She is breathing better today as compared to yesterday but not quite back to her baseline. She is still dyspneic on minimal exertion. Continue O2 saturations in the 90s on 2 L/ m per nasal cannula. She's been afebrile. Blood cultures reveal no growth to date. On 02/13/2017 the patient was seen in follow-up. She is markedly improved. No new complaints for now. She is breathing easier. She is ambulating, and she is well diuresed. She was treated for an acute COPD exacerbation with a combination of bronchodilators and steroids. No chest pain. No swelling lower extremities. No fever or chills. No nausea or vomiting. No other complaints otherwise. Objective - Vital Signs Vital signs: Vital Signs Temp 96.2 F L 02/13/17 07:00 Pulse 76 02/13/17 11:31 Resp 20 02/13/17 07:00 BP 136/66 02/13/17 07:00 Pulse Ox 95 02/13/17 07:00 Intake & Output 02/12/17 02/13/17 02/13/17 18:59 06:59 18:59 Weight 49.5 kg 47.6 kg Other: # Voids 1 1 - Exam Head exam was generally normal. There was no scleral icterus or corneal arcus. Mucous membranes were moist. Examination of the neck shows positive JVDs.Neck was supple and with jugular venous distension, thyromegaly, or carotid bruits. Carotids were easily palpable bilaterally. There was no adenopathy. Lung sounds are diminished bilaterally, especially in the lung bases along with some scattered expiratory wheezes and few cracks in lung bases bilaterally. Heart sounds are regular, distant, normal S1-S2 and there is a certain which is stable clean and intact at this point.Abdominal exam revealed normal bowel sounds. The abdomen was soft, non-tender, and without masses, organomegaly, or appreciable enlargement of the abdominal aorta.Examination of the extremities revealed easily palpable radial, femoral and pedal pulses. There was no cyanosis , clubbing or edema. - Labs CBC & Chem 7: 02/11/17 01:08 02/11/17 01:08 Labs: Abnormal Lab Results - Last 24 Hours (Table) 02/12/17 02/12/17 02/13/17 Range/Units :17 21:06 07:10 POC Glucose (mg/dL) 141 H 164 H 142 H (75-99) mg/dL Microbiology - Last 24 Hours (Table) 02/11/17 01:08 Blood Culture - Preliminary Blood No Growth after 48 hours Assessment and Plan Plan: Assessment 1 shortness of breath secondary to combination of COPD/CHF exacerbation. Chest x-ray was reviewed and there is no acute pneumonia nor there is any overt signs of failure. ProBNP level is elevated. Cardiac enzymes are negative. On 02/13/2017 the patient is well recovered from his acute COPD CHF exacerbation has been much treated and the patient is back to her baseline. 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 All of the outpatient medication will be resumed. We'll follow up this patient in outpatient basis. She is clear for discharge from the pulmonary standpoint.
== END 2017-02-13 14:17 | disposition home or self-care (01) | DRG 291 ==
LOC: EC 00:59 → 6SEL 03:04 → 4MS4W 11:11
PROVIDERS: ADMIT Family Medicine; ATTEND Family Medicine
DX: I11.0 Hypertensive heart disease with heart failure (principal); J96.21 Acute and chronic respiratory failure with hypoxia; I27.2 Other secondary pulmonary hypertension; J44.1 Chronic obstructive pulmonary disease with (acute) exacerbation; I50.23 Acute on chronic systolic (congestive) heart failure; I07.1 Rheumatic tricuspid insufficiency; I25.10 Atherosclerotic heart disease of native coronary artery without angina pectoris; F17.210 Nicotine dependence, cigarettes, uncomplicated; E78.5 Hyperlipidemia, unspecified; I25.2 Old myocardial infarction; I25.5 Ischemic cardiomyopathy; M81.0 Age-related osteoporosis without current pathological fracture; K21.9 Gastro-esophageal reflux disease without esophagitis; I73.9 Peripheral vascular disease, unspecified; K90.0 Celiac disease; F32.9 Major depressive disorder, single episode, unspecified; F41.9 Anxiety disorder, unspecified; Z79.02 Long term (current) use of antithrombotics/antiplatelets; Z79.82 Long term (current) use of aspirin; Z79.51 Long term (current) use of inhaled steroids; Z79.52 Long term (current) use of systemic steroids; Z79.899 Other long term (current) drug therapy; G89.29 Other chronic pain; Z95.1 Presence of aortocoronary bypass graft; Z95.2 Presence of prosthetic heart valve; Z95.5 Presence of coronary angioplasty implant and graft; Z85.3 Personal history of malignant neoplasm of breast
CPT/HCPCS: 36415; 71010; 80053; 82550; 82553; 83036; 83605; 83735; 83880; 84484; 85025; 85610; 85730; 87040; 93005; 94640; 94660; 94760; 96365; 96366; 96374; 99285

== ENCOUNTER → 2017-03-22 | Outpatient (CLI) | payer OTHER ==
--- NOTE | 2017-03-23 10:25 | MM ---
Reason for exam: screening (asymptomatic). Last mammogram was performed 1 year and 1 month ago. History: Patient is postmenopausal and has history of breast cancer at age 49. Family history of breast cancer in maternal aunt and breast cancer in cousin. Benign US RT VAD breast biopsy of the right breast, September 06, 2012. Lumpectomy of the right breast, 2004. Radiation therapy of the right breast, 2004. Physical Findings: A clinical breast exam by your physician is recommended on an annual basis and results should be correlated with mammographic findings. MG 3D Diag Mammo W/Cad CECILIO Bilateral CC and MLO view(s) were taken. Prior study comparison: February 19, 2016, bilateral MG 3d screening mammo w/ cad. February 27, 2015, bilateral MG diagnostic mammo w CAD CECILIO. The breast tissue is heterogeneously dense. This may lower the sensitivity of mammography. Finding #1: There is a 7 mm indistinct oval mass in the upper outer quadrant of the right breast. Finding #2: There are typically benign calcifications in the left breast. Asymmetric breast tissue in the left breast is stable. New finding since February 19, 2016 and February 27, 2015. These results were verbally communicated with the patient and result sheet given to the patient on 03/22/17. ASSESSMENT: Incomplete: need additional imaging evaluation, BI-RAD 0 RECOMMENDATION: Ultrasound of the right breast. MTDD
--- NOTE | 2017-03-23 10:37 | USB ---
Reason for exam: additional evaluation requested from abnormal screening. History: Patient is postmenopausal and has history of breast cancer at age 49. Family history of breast cancer in maternal aunt and breast cancer in cousin. Benign US RT VAD breast biopsy of the right breast, September 06, 2012. Lumpectomy of the right breast, 2004. Radiation therapy of the right breast, 2004. US Breast Limited RT Right breast ultrasound demonstrates a 1.6 x 1.4 x 0.6cm oval, solid lesion with clip at 11 o'clock, stable lesion from 2013. Benign biopsy 2012 with clip centrally. These results were verbally communicated with the patient and result sheet given to the patient on 03/22/17. ASSESSMENT: Benign, BI-RAD 2 RECOMMENDATION: Follow-up diagnostic mammogram of both breasts in 1 year.
== END | disposition home or self-care (01) ==
LOC: RADMAMWWP 13:02
PROVIDERS: ATTEND Family Medicine
DX: Z08 Encounter for follow-up examination after completed treatment for malignant neoplasm (principal); Z85.3 Personal history of malignant neoplasm of breast; Z80.3 Family history of malignant neoplasm of breast
CPT/HCPCS: 76642; G0204; G0279

== ENCOUNTER 2017-03-25 06:29 | Day surgery (SDC) | payer OTHER ==
[~2017-03-25 06:29] MED LIST: ALPRAZolam 0.25 MG TAB PO PRN; ASPIRIN 325 MG TAB PO STA; SODIUM CHLORIDE 0.9% 1,000 ML in EMPTY BAG 1 BAG IV ONE
[2017-03-25 07:07] VITALS: RESP 18
[2017-03-25] MEDS ORDERED: MIDAZOLAM 2 MG/2 ML VIAL IVP ONE (08:03)
[2017-03-25] MEDS ORDERED: LIDOCAINE 2% INJ 20 MG/ML SQ ONE (08:05)
[2017-03-25] MEDS ORDERED: HEPARIN SODIUM 1,000 UN/ML (10ML VL) IV ONE (08:20)
[2017-03-25] MEDS ORDERED: CLOPIDOGREL 75 MG TAB PO ONE (08:43)
[2017-03-25] MEDS ORDERED: IODIXANOL 320 MG/ML 100 ML INTRAARTER ONE (08:44)
[2017-03-25] MEDS ORDERED: FAMOTIDINE 20 MG TAB PO PRN (08:49)
[2017-03-25] MEDS ORDERED: NITROGLYCERIN SL TABS 0.4 MG TAB SUBLINGUAL PRN (08:49)
[2017-03-25] MEDS ORDERED: PRIMIDONE 50 MG TAB PO SCH (09:00)
[2017-03-25] MEDS ORDERED: SODIUM CHLORIDE 0.9% 1,000 ML IV SCH (09:00)
--- NOTE | 2017-03-25 09:26 | LTR ---
DATE OF SERVICE: 03/25/2017 RE: Kasandra Benítez Dear Duarte, . Kasandra Benítez underwent a peripheral angiogram today and that revealed severe right iliac disease and severe bilateral femoral disease. She underwent today successful stenting of the right iliac artery with good angiographic results and without any complication. I want to thank you for allowing me to participate in her care and please do not hesitate to call with any questions or concerns. Sincerely, MD RUBEN Emmanuel / WILLN: [id number] /
[2017-03-25] MEDS: ASPIRIN 81 MG PO SCH (09:27)
[2017-03-25] MEDS: CLOPIDOGREL 75 MG TAB PO SCH (09:27)
[2017-03-25] MEDS: buPROPion XL 150 MG TAB.ER.24H PO SCH (09:28)
[2017-03-25] MEDS: CALCIUM CARBONATE 500 MG CHEWABLE PO SCH (09:28)
[2017-03-25] MEDS: SPIRONOLACTONE 25 MG TAB PO SCH ×2 (09:29→19:50)
[2017-03-25] MEDS: VITAMIN E (DL,TOCOPHERYL ACET) 400 UNIT CAP PO SCH (09:29)
[2017-03-25] MEDS: FUROSEMIDE 40 MG TAB PO SCH ×2 (09:30→19:48)
[2017-03-25] MEDS: GABAPENTIN 400 MG CAP PO SCH ×2 (09:30→19:49)
[2017-03-25] MEDS: METOPROLOL SUCCINATE (ER) 50 MG TAB.ER.24H PO SCH (09:30)
--- NOTE | 2017-03-25 09:38 | AN ---
ANGIOGRAPHY REPORT DATE OF SERVICE: 03/25/2017 PERFORMING PHYSICIAN: Braulio Mckeon MD, [employer]. PROCEDURE PERFORMED: 1. Abdominal aortogram. 2. Bilateral lower extremities runoff. INDICATION: This is a pleasant 61-year-old female patient who was experiencing bilateral lower extremities discomfort. She was diagnosed with intermittent claudication. She underwent an arterial duplex study and that showed severe bilateral iliac disease and severe bilateral fem-pop disease. She was brought today to undergo a peripheral angiogram for further clarification. APPROACH: Right common femoral artery. COMPLICATION: None. LEVEL OF SEDATION: Moderate with sedation length of about 30 minutes. PROCEDURE DESCRIPTION: After obtaining an informed consent, the patient was brought to the [facility]. The right common femoral artery was cannulated using micropuncture technique, the micropuncture wire passed easily. Then I placed a 6-Scottish sheath in the right common femoral artery. Subsequently, I did an abdominal aortogram and bilateral lower extremities runoff using 5-Scottish pigtail catheter which was initially placed at the level of the renal arteries. Then it was pulled into above the bifurcation of the aorta to right and left common iliac arteries. I did after that bilateral lower extremities runoff. After that, I decided to intervene on the right common iliac artery. Please see a separate paragraph for that. SELECTIVE PERIPHERAL ANGIOGRAM: 1. The abdominal aorta appeared to have mild disease only. 2. COMMON ILIAC ARTERIES: The right common iliac artery appeared to have a critical lesion in the range of 80% to 90% and the left common iliac artery appeared to be angiographically normal. 3. INTERNAL ILIAC ARTERIES: The right and left internal iliac arteries are patent. 4. EXTERNAL ILIAC ARTERIES: The right external iliac artery is stented and the stent is patent and the left external iliac artery is normal. 5. COMMON FEMORAL ARTERIES: The right and left common femoral arteries appear to have mild disease only. 6. PROFUNDA: The right and left profunda are patent. 7. SFA: The right SFA appeared to have severe disease in the proximal portion and the left SFA appeared to have intermediate to severe disease in the midportion. 8. POPLITEAL: The right popliteal appears to have severe disease in the distal portion and the left popliteal appears to be angiographically normal. 9. BELOW THE KNEE: There are 2 vessel runoff below the knee bilaterally with PT and peroneal on the right side and AT and peroneal on the left side. CONCLUSION: 1. Severe aortoiliac disease with severe disease involving the right common iliac artery. 2. Severe femoral-popliteal disease with severe bilateral SFA disease. 3. Two vessel runoff below the knee bilaterally as described above. POSTPROCEDURE MANAGEMENT: Proceeding with intervention on the right common iliac artery as well as bilateral SFA on two separate sessions. MMODL / IJN: [id number] /
--- NOTE | 2017-03-25 09:38 | PTCA ---
PERCUTANEOUSTRANS CORORONARY ANGIOGRAPHY PERCUTANEOUS PERIPHERAL INTERVENTION: 03/25/2017 PERFORMING PHYSICIAN: Braulio Mckeon MD, Composition Instructor. PROCEDURE PERFORMED: 1. Selective right common iliac artery angiogram. 2. Balloon angioplasty of the right common iliac artery. 3. Successful stenting of the right common iliac artery using 7.0 x 30 mm Omnilink balloon-expandable stent with good angiographic results. INDICATION: This is a pleasant 61-year-old female patient who just underwent a peripheral angiogram and was found to have severe right iliac disease and severe bilateral SFA disease. We decided to pursue with intervention on the right iliac artery at this point. APPROACH: Right common femoral artery. COMPLICATION: None. LEVEL OF SEDATION: Moderate with a sedation length of 10 minutes. PROCEDURE DESCRIPTION: After peripheral angiogram was performed, we decided to pursue with intervention on the right common iliac artery. Anticoagulation was initiated using heparin and the patient was given a weight-based heparin of a total of 5000 units. Subsequently, I did exchange my 5-Romansh 11 cm sheath into a 6-Romansh 23 cm Brite Tip sheath. After that, I did selective right common iliac artery angiogram and subsequently, balloon angioplasty of the right common iliac artery using 6-0 balloon and after that, I did deploy 7.0 x 30 mm Omnilink balloon-expandable stent where the stent was positioned under fluoroscopy guidance and deployed under 12 atmospheres for about 30 seconds. The following angiogram showed good angiographic results without perforation and without dissection. The procedure was completed without any complication. POSTPROCEDURE MANAGEMENT: 1. Dual anti-platelet therapy. 2. Risk factors modification. 3. FISHER GILL NET of the right and left SFA on two separate sessions. MMODL / IJN: [id number] /
[2017-03-25] MEDS ORDERED: CYANOCOBALAMIN 500 MCG TAB PO SCH (12:00)
[2017-03-25] MEDS ORDERED: MULTIVITAMINS, THERA 1 EACH TAB PO SCH (12:00)
[2017-03-25] MEDS ORDERED: MAGNESIUM OXIDE 400 MG TAB PO SCH (12:00)
[2017-03-25] MEDS ORDERED: ATROPINE SULFATE 0.1 MG/ML 10ML SYRINGE ONE (12:30)
[2017-03-25] MEDS: HYDROcodone/APAP 10-325MG 1 EACH TAB PO PRN ×2 (13:57→23:32)
[2017-03-25] MEDS: ALBUTEROL NEBULIZED 2.5 MG/3 ML INHALATION SCH ×3 (15:32→18:52)
[2017-03-25] MEDS: PRIMIDONE 50 MG TAB PO SCH ×2 (15:51→19:49)
[2017-03-25] MEDS ORDERED: ACETAMINOPHEN TAB 325 MG TAB PO PRN (15:56)
[2017-03-25] MEDS: SYMBICORT 160-4.5 MCG INHALER INHALATION SCH (18:53)
[2017-03-25] MEDS ORDERED: IPRATROPIUM-ALBUTEROL 3 ML NEB INHALATION PRN (18:59)
[2017-03-25] MEDS: IPRATROPIUM-ALBUTEROL 3 ML NEB INHALATION SCH (19:03)
[2017-03-25] MEDS ORDERED: ATORVASTATIN 80 MG TAB PO SCH (21:00)
[2017-03-25] MEDS ORDERED: LATANOPROST 0.005% OPHTH DROPS 2.5 ML BTL LEFT EYE SCH (21:00)
[2017-03-26 04:26] VITALS: TEMP 99
[2017-03-26 06:38] LABS: Anisocytosis Slight; Basophils % (A) 0 %; CH 24.1; CHCM 29.5; Eosinophils # (A) 0.2 k/uL (0-0.7); Eosinophils % (A) 2 %; HCT 35.1 % (34.0-46.0); HDW 2.96; HGB 10.2 gm/dL (11.4-16.0); Hypochromasia Marked; Luc # (Auto) 0.34; Luc % (Auto) 4; Lymphocytes % (A) 21 %; MCH 23.9 pg (25.0-35.0); MCHC 29.2 g/dL (31.0-37.0); Mean Platelet Volume 7.1; Monocytes # (A) 0.9 k/uL (0-1.0); Monocytes % (A) 10 %; Neutrophils # (A) 5.9 k/uL (1.3-7.7); Neutrophils % (A) 64 %; RBC 4.28 m/uL (3.80-5.40); RDW 16.8 % (11.5-15.5); WBC 9.4 k/uL (3.8-10.6); WBC (Perox) 9.11
[2017-03-26 06:51] LABS: Anion Gap 10 mmol/L; Blood Urea Nitrogen 20 mg/dL (7-17); Calcium 8.5 mg/dL (8.4-10.2); Carbon Dioxide 25 mmol/L (22-30); Chloride 102 mmol/L (98-107); Glucose 96 mg/dL (74-99); Non-African American GFR(MDRD) >60 (>60 ml/min/1.73 sqM); Potassium 4.5 mmol/L (3.5-5.1); Sodium 137 mmol/L (137-145)
[2017-03-26] MEDS: HYDROcodone/APAP 10-325MG 1 EACH TAB PO PRN (07:56)
[2017-03-26] MEDS: FUROSEMIDE 40 MG TAB PO SCH (07:59)
[2017-03-26] MEDS: METOPROLOL SUCCINATE (ER) 50 MG TAB.ER.24H PO SCH (07:59)
[2017-03-26] MEDS: CLOPIDOGREL 75 MG TAB PO SCH (07:59)
[2017-03-26] MEDS: CALCIUM CARBONATE 500 MG CHEWABLE PO SCH (07:59)
[2017-03-26] MEDS: SPIRONOLACTONE 25 MG TAB PO SCH (07:59)
[2017-03-26] MEDS: GABAPENTIN 400 MG CAP PO SCH (07:59)
[2017-03-26] MEDS: ASPIRIN 81 MG PO SCH (07:59)
[2017-03-26] MEDS: VITAMIN E (DL,TOCOPHERYL ACET) 400 UNIT CAP PO SCH (07:59)
[2017-03-26] MEDS: buPROPion XL 150 MG TAB.ER.24H PO SCH (07:59)
[2017-03-26] MEDS: PRIMIDONE 50 MG TAB PO SCH (08:00)
[2017-03-26] MEDS ORDERED: IPRATROPIUM 0.5 MG/2.5 ML NEBU INHALATION SCH (08:00)
[2017-03-26 08:34] VITALS: BP 122/74
[2017-03-26] MEDS: IPRATROPIUM-ALBUTEROL 3 ML NEB INHALATION SCH (08:42)
[2017-03-26] MEDS: SYMBICORT 160-4.5 MCG INHALER INHALATION SCH (08:42)
[2017-03-26 08:58] VITALS: PULSE 84
[2017-03-26 09:25] VITALS: BMI 17.1
--- NOTE | 2017-04-02 07:39 | DS ---
DISCHARGE SUMMARY ADMISSION DATE: March 25, 2017. DISCHARGE DATE: March 26, 2017. BRIEF HISTORY: This is a pleasant 61-year-old female patient who was experiencing severe right leg discomfort, who underwent a peripheral angiogram which showed severe right iliac disease and severe bilateral SFA disease. She was admitted to the hospital and underwent successful balloon angioplasty and stenting of the right common iliac artery with good angiographic results using Omni link balloon expandable stent with good angiographic results and without any complication. On follow up with the patient the following day, she was doing good. The procedure was performed from the right groin approach, and the right groin is soft and nontender and without any bruises. The patient is going to be discharged home on dual anti-platelet therapy and statin and I will follow up with the patient as an outpatient in the office. RUBEN / SHIVA: [id number] /
--- NOTE | 2017-04-14 10:05 | IR ---
EXAMINATION TYPE: IR architectural job captain iliac DATE OF EXAM: 03/25/2017 CLINICAL HISTORY: Peripheral vascular disease per order. TECHNIQUE: Fluoroscopy. COMPARISON: None. FINDINGS: Fluoroscopic guidance was provided during abdominal angiogram with lower extremity runoff procedure performed by Dr. Mckeon. A total of 6 0.0 minutes of fluoroscopic time was utilized during t he procedure and 8 cine runs are acquired. Images acquired show access via right groin. There are maria antonia ateral common iliac arterial stent graft which appear patent. Please refer to procedure note for furt her details as I was not present nor performed procedure. IMPRESSION: As Above.
== END 2017-03-26 10:24 | disposition home or self-care (01) ==
LOC: CATHCVL 06:29 → 6SEL 08:42 → CATHCVL 03-26 10:24
PROVIDERS: ATTEND Internal Medicine Interventional Cardiology
DX: I70.211 Atherosclerosis of native arteries of extremities with intermittent claudication, right leg (principal); I25.10 Atherosclerotic heart disease of native coronary artery without angina pectoris; I50.20 Unspecified systolic (congestive) heart failure; I11.0 Hypertensive heart disease with heart failure; I25.5 Ischemic cardiomyopathy; Z87.891 Personal history of nicotine dependence; E78.5 Hyperlipidemia, unspecified; Z95.820 Peripheral vascular angioplasty status with implants and grafts; Z95.1 Presence of aortocoronary bypass graft; Z95.5 Presence of coronary angioplasty implant and graft; Z82.49 Family history of ischemic heart disease and other diseases of the circulatory system; E78.00 Pure hypercholesterolemia, unspecified; Z79.82 Long term (current) use of aspirin; Z79.83 Long term (current) use of bisphosphonates; Z79.51 Long term (current) use of inhaled steroids; Z79.52 Long term (current) use of systemic steroids; Z99.81 Dependence on supplemental oxygen; Z79.899 Other long term (current) drug therapy; Z88.1 Allergy status to other antibiotic agents
CPT/HCPCS: 99152; 99153 ×2; 94640 ×4; 37221; 75625; 75716; 80048; 85025; C1894 ×4; C1725; C1876; C1769 ×4; J2001; J2250; Q9967; J1644

== ENCOUNTER → 2017-05-10 | Outpatient (CLI) | payer OTHER ==
[2017-05-10 15:15] LABS: Anisocytosis Moderate; CH 23.6; CHCM 29.7; HDW 2.96; HGB 10.7 gm/dL (11.4-16.0); Hypochromasia Marked; MCH 23.9 pg (25.0-35.0); MCHC 29.8 g/dL (31.0-37.0); Mean Platelet Volume 7.2; Microcytosis Slight; RDW 20.2 % (11.5-15.5); WBC 10.5 k/uL (3.8-10.6)
[2017-05-10 15:28] LABS: Anion Gap 9 mmol/L; Blood Urea Nitrogen 15 mg/dL (7-17); Carbon Dioxide 31 mmol/L (22-30); Chloride 98 mmol/L (98-107); Non-African American GFR(MDRD) >60 (>60 ml/min/1.73 sqM); Potassium 3.9 mmol/L (3.5-5.1); Sodium 138 mmol/L (137-145)
== END | disposition home or self-care (01) ==
LOC: LABPAT 14:48
PROVIDERS: ATTEND Internal Medicine Interventional Cardiology
DX: Z01.812 Encounter for preprocedural laboratory examination (principal); I73.9 Peripheral vascular disease, unspecified
CPT/HCPCS: 36415; 80051; 82565; 84520; 85027

== ENCOUNTER 2017-06-27 02:54 | Inpatient (IN) | payer OTHER ==
[2017-06-27 03:06] LABS: Glucose,Whole Blood 120 mg/dL (75-99)
[2017-06-27 03:30] LABS: Anisocytosis Slight; Basophils # (A) 0.1 k/uL (0-0.2); Basophils % (A) 0 %; Eosinophils # (A) 0.2 k/uL (0-0.7); Eosinophils % (A) 1 %; HCT 38.7 % (34.0-46.0); HGB 11.5 gm/dL (11.4-16.0); Hypochromasia Moderate; Lymphocytes # (A) 1.7 k/uL (1.0-4.8); Lymphocytes % (A) 9 %; MCH 24.1 pg (25.0-35.0); MCHC 29.8 g/dL (31.0-37.0); MCV 80.9 fL (80.0-100.0); Mean Platelet Volume 6.3; Monocytes # (A) 1.5 k/uL (0-1.0); Monocytes % (A) 8 %; Neutrophils # (A) 15.6 k/uL (1.3-7.7); Neutrophils % (A) 80 %; Platelet Count 718 k/uL (150-450); RBC 4.79 m/uL (3.80-5.40); RDW 16.2 % (11.5-15.5); WBC 19.4 k/uL (3.8-10.6)
[2017-06-27 03:41] LABS: Albumin 4.3 g/dL (3.5-5.0); Calcium 9.6 mg/dL (8.4-10.2); Potassium 4.6 mmol/L (3.5-5.1); Total Bilirubin 0.5 mg/dL (0.2-1.3); Total Protein 7.5 g/dL (6.3-8.2)
[2017-06-27 03:46] LABS: D-Dimer 0.74 mg/L FEU (<0.60); INR 1.2 (<1.2); Partial Thromboplastin Time 25.4 sec (22.0-30.0); Prothrombin Time 11.2 sec (9.0-12.0)
--- NOTE | 2017-06-27 03:51 | XR ---
EXAM: XR Chest, 2 Views CLINICAL HISTORY: Reason: difficulty breathing TECHNIQUE: Frontal and lateral views of the chest. COMPARISON: 06/10/17 FINDINGS: Cardiac and mediastinal silhouette appear unchanged allowing for differences in technique. Postop changes again noted. Possible trace pleural fluid. Bibasilar opacities which may represent atelectasis and/or infiltrate. IMPRESSION: Possible trace pleural effusions with bibasilar lung opacities which may represent atelectasis and/or infiltrate.
[2017-06-27 04:07] LABS: Troponin I 0.018 ng/mL (0.000-0.034)
[2017-06-27 04:11] LABS: Creatine Kinase MB 13.2 ng/mL (0.0-2.4)
[2017-06-27] MEDS ORDERED: PIPERACILLIN-TAZOBACTAM 3.375 GM in DEXTROSE/WATER 1 50ML.BAG IVPB STA (04:31)
[2017-06-27] MEDS ORDERED: SODIUM CHLORIDE 0.9% 1,000 ML IV ONE ×2 (04:31→10:21)
--- NOTE | 2017-06-27 06:59 | CT ---
EXAM: CT Abdomen and Pelvis Without Intravenous Contrast CLINICAL HISTORY: Reason: Pain TECHNIQUE: Axial computed tomography images of the abdomen and pelvis without intravenous contrast. DLP is 259.20 mGy-cm. This CT exam was performed using one or more of the following dose reduction techniques: automated exposure control, adjustment of the mA and/or kV according to patient size, and/or use of iterative reconstruction technique. COMPARISON: 12/30/14 FINDINGS: Evaluation is limited by lack of contrast and paucity of mesenteric fat. This also some artifact on the study. Atelectasis and/or scar at lung bases. Postoperative cardiac changes. No urinary tract calculi or hydronephrosis. Low density liver lesion. No bowel obstruction. Portions of bowel underdistended limiting evaluation for wall thickening. Appendix is not identified. No bowel obstruction. Prominent atherosclerosis. Vascular stenting again noted with stents extending into the external iliac arteries, as on prior. Left adrenal hyperplasia again noted. Osseous degenerative changes. IMPRESSION: Atelectasis and/or scar at lung bases. Limited by lack of contrast, paucity of fat and artifact. No urinary tract calculi or hydronephrosis. No bowel obstruction. Portions of bowel are poorly distended limiting evaluation for wall thickening. No focal perienteric inflammatory changes. Other findings, as above.
[2017-06-27] MEDS ORDERED: NITROGLYCERIN SL TABS 0.4 MG TAB SUBLINGUAL PRN (07:30)
[2017-06-27] MEDS ORDERED: FAMOTIDINE 20 MG TAB PO PRN (07:30)
--- NOTE | 2017-06-27 07:50 | ED ---
SOB HPI - General Chief Complaint: Shortness of Breath Stated Complaint: SOB Time Seen by Provider: 06/27/17 02:55 Source: EMS Mode of arrival: EMS Limitations: altered mental status (Patient appears delirious) - History of Present Illness Initial Comments: Patient is a 61-year-old woman transferred here from her home by ambulance reportedly because she was short of breath. The patient on arrival does acknowledge cough and shortness of breath, but history is limited as she does appear delirious. She is denying chest pain. She is denying change in bowel movements or urination. Patient denies leg pain. She does acknowledge vomiting on the review of systems, but the review of systems is limited due to delirium. MD Complaint: shortness of breath -: unknown Severity: moderate Consistency: constant Improves With: nothing Worsens With: nothing Known History Of: COPD, recurrent pneumonia Associated Symptoms: nausea/vomiting Treatments Prior to Arrival: none - Related Data Home Medications Medication Instructions Recorded Confirmed Gabapentin 400 mg PO TID 06/24/14 06/27/17 Hydrocodone/Acetaminophen 1 tab PO Q8H PRN 06/24/14 06/27/17 [Hydrocodone/Acetaminophen 10-325] Cyanocobalamin [Vitamin B-12] 500 mcg PO DAILY 07/21/14 06/27/17 Multivitamins, Thera [Multivitamin 1 tab PO DAILY 07/21/14 06/27/17 (formulary)] Primidone [Mysoline] 50 mg PO TID 10/29/14 06/27/17 Aspirin 81 mg PO DAILY 09/17/15 06/27/17 Tiotropium [place] [Spiriva] 18 mcg INHALATION RT-DAILY 09/17/15 06/27/17 Vitamin E 1,000 unit PO DAILY 09/17/15 06/27/17 Latanoprost Ophth [Xalatan 0.005%] 1 drops LEFT EYE HS 08/05/16 06/27/17 Albuterol Nebulized [Ventolin 2.5 mg INHALATION RT-Q4H PRN 12/04/16 06/27/17 Nebulized] Calcium Carbonate [Calcium] 600 mg PO DAILY 12/04/16 06/27/17 Magnesium Gluconate [Magonate] 1,000 mg PO DAILY 12/04/16 06/27/17 Famotidine [Pepcid] 20 mg PO DAILY PRN 02/11/17 06/27/17 Furosemide [Lasix] 40 mg PO DAILY 02/11/17 06/27/17 Metoprolol Succinate (ER) [Toprol 50 mg PO DAILY 02/11/17 06/27/17 XL] Spironolactone [Aldactone] 25 mg PO DAILY 02/11/17 06/27/17 buPROPion XL [Wellbutrin XL] 150 mg PO DAILY 02/11/17 06/27/17 PARoxetine HCL [Paxil] 30 mg PO BID 03/26/17 06/27/17 Amitriptyline HCl [Elavil] 25 mg PO HS 05/11/17 06/27/17 Propranolol [Inderal] 40 mg PO BID 06/27/17 06/27/17 Previous Rx's Medication Instructions Recorded Budesonide-Formot 160-4.5 Mcg 2 puff INHALATION RT-BID #1 inhaler 06/29/14 [Symbicort 160-4.5 Mcg Inhaler] Atorvastatin [Lipitor] 80 mg PO HS #30 tab 07/18/14 Nitroglycerin Sl Tabs [Nitrostat] 0.4 mg SUBLINGUAL Q5M PRN #25 tab 07/18/14 Clopidogrel [Plavix] 75 mg PO DAILY #30 tab 08/06/16 Levofloxacin [Levaquin] 500 mg PO DAILY #7 tab 06/29/17 Allergies Allergy/AdvReac Type Severity Reaction Status Date / Time cipro eye drop AdvReac eye and Uncoded 06/27/17 07:35 surrounding tissue swelling Review of Systems ROS Statement: Those systems with pertinent positive or pertinent negative responses have been documented in the HPI. ROS Other: All systems not noted in ROS Statement are negative. Limitations: ROS unobtainable due to patients medical condition (Delirious) Respiratory: Reports: dyspnea Gastrointestinal: Reports: vomiting Past Medical History Past Medical History: Coronary Artery Disease (CAD), Cancer, Heart Failure, COPD , Eye Disorder, GERD/Reflux, Hyperlipidemia, Myocardial Infarction (CO), Respiratory Disorder, Vascular Disorder Additional Past Medical History / Comment(s): chronic hypoxic respiratory failure, CHF with an ejection fraction of less than 20% with significant degree of secondary pulmonary hypertension, ischemic cardiac myopathy, O2 1.5L/NC at HS , celiac disease,R breast cancer, osteoporosis, PAD, chronic pain L wrist ( previous injury with sx), L eye possible glaucoma, sinus problems. Last Myocardial Infarction Date:: 2014 History of Any Multi-Drug Resistant Organisms: None Reported Past Surgical History: Breast Surgery, Section, Coronary Bypass/CABG, Heart Catheterization With Stent, Orthopedic Surgery Additional Past Surgical History / Comment(s): 11/2016 CABG 4 vessel with mitral/ tricuspid surgery at [facility]-also had thoracentesis, R breast lumpectomy, L WRIST SX X3, D&C, 11-01-14 AORTAGRAM W/RUNOFF- CECILIO ILIAC STENTS, colonoscopy. Past Anesthesia/Blood Transfusion Reactions: No Reported Reaction Additional Past Anesthesia/Blood Transfusion Reaction / Comment(s): no hx blood transfusion Date of Last Stent Placement:: 2014 Past Psychological History: Anxiety, Depression Smoking Status: Current every day smoker Past Alcohol Use History: None Reported Past Drug Use History: None Reported - Past Family History Mother Family Medical History: Congestive Heart Failure (CHF), Diabetes Mellitus Additional Family Medical History / Comment(s): HEART ISSSUES. Mother of CHF at the age of 69yrs. Father Family Medical History: Blood Disorder Additional Family Medical History / Comment(s): HEMACHROMATOSIS. Father at the age of 69yrs from cirrhosis. He was not a drinker. General Exam Limitations: no limitations General appearance: obtunded Head exam: Present: atraumatic, normocephalic Eye exam: Present: normal appearance, PERRL. Absent: scleral icterus, conjunctival injection ENT exam: Present: mucous membranes dry Neck exam: Present: normal inspection, full ROM Respiratory exam: Present: respiratory distress (Mild tachypnea), wheezes, rhonchi. Absent: rales, stridor Cardiovascular Exam: Present: regular rate, normal rhythm, normal heart sounds. Absent: systolic murmur, diastolic murmur, rubs, gallop GI/Abdominal exam: Present: soft, tenderness (Is mild epigastric tenderness). Absent: distended, guarding, rebound, rigid, mass, pulsatile mass, hernia Extremities exam: Present: normal inspection, normal capillary refill. Absent: pedal edema, calf tenderness Back exam: Present: normal inspection. Absent: CVA tenderness (R), CVA tenderness (L) Neurological exam: Present: alert, CN II-XII intact, other (Patient is somnolent but arousable and then oriented to person and no she is in a hospital. She is able to follow simple one step commands.). Absent: oriented X3 (Patient is disoriented date), motor sensory deficit Skin exam: Present: warm, dry, intact, normal color. Absent: rash Course Vital Signs 06/27/17 06/27/17 06/27/17 02:58 04:36 06:05 Temperature 97.6 F Pulse Rate 62 55 L 59 L Respiratory 22 18 20 Rate Blood Pressure 196/70 108/59 131/72 O2 Sat by Pulse 95 97 98 Oximetry 06/27/17 06/27/17 06/27/17 07:40 11:14 11:24 Temperature Pulse Rate 58 L 60 60 Respiratory 16 Rate Blood Pressure 95/53 O2 Sat by Pulse 96 Oximetry 06/27/17 06/27/17 06/27/17 12:56 14:24 15:18 Temperature Pulse Rate 65 65 Respiratory 16 Rate Blood Pressure 107/53 O2 Sat by Pulse 95 100 Oximetry 06/27/17 06/27/17 15:27 16:55 Temperature Pulse Rate 65 62 Respiratory 16 Rate Blood Pressure 104/54 O2 Sat by Pulse 95 Oximetry - Reevaluation(s) Reevaluation #1: 06/27/17 09:29 After the patient returned from the ultrasound, it is noted that she is more difficult to arouse, and now only oriented to person. CT of the brain added and neurology consultation. Reevaluation #2: 06/27/17 10:24 Patient has returned from CT, and then following straight catheter urine she is now alert and is oriented, suspect that the patient's delirium may be due to medication side effect in combination with the patient's volume status. Medical Decision Making - Medical Decision Making This patient is 61-year-old woman in for dyspnea. She had recent admission for multifactorial dyspnea, including element of CHF and also multilobar pneumonia. Patient's clinical exam suggestive of continued component of pneumonia. The patient's BNP is also elevated. Case is discussed with Dr. Jimenez who will admit for further evaluation and therapy. - Lab Data Result diagrams: 06/29/17 05:50 06/29/17 05:50 Lab Results 06/27/17 06/27/17 06/27/17 Range/Units 03:03 03:10 03:10 WBC 19.4 H (3.8-10.6) k/uL RBC 4.79 (3.80-5.40) m/uL Hgb 11.5 (11.4-16.0) gm/dL Hct 38.7 (34.0-46.0) % MCV 80.9 (80.0-100.0) fL MCH 24.1 L (25.0-35.0) pg MCHC 29.8 L (31.0-37.0) g/dL RDW 16.2 H (11.5-15.5) % Plt Count 718 H (150-450) k/uL Neutrophils % 80 % Lymphocytes % 9 % Monocytes % 8 % Eosinophils % 1 % Basophils % 0 % Neutrophils # 15.6 H (1.3-7.7) k/uL Lymphocytes # 1.7 (1.0-4.8) k/uL Monocytes # 1.5 H (0-1.0) k/uL Eosinophils # 0.2 (0-0.7) k/uL Basophils # 0.1 (0-0.2) k/uL Hypochromasia Moderate Anisocytosis Slight PT (9.0-12.0) sec INR (<1.2) APTT (22.0-30.0) sec D-Dimer (<0.60) mg/L FEU Sodium (137-145) mmol/L Potassium (3.5-5.1) mmol/L Chloride (98-107) mmol/L Carbon Dioxide (22-30) mmol/L Anion Gap mmol/L BUN (7-17) mg/dL Creatinine (0.52-1.04) mg/dL Est GFR (MDRD) Af Amer (>60 ml/min/1.73 sqM) Est GFR (MDRD) Non-Af (>60 ml/min/1.73 sqM) Glucose (74-99) mg/dL POC Glucose (mg/dL) 120 H (75-99) mg/dL POC Glu [employer] Professor ID Venancio, Cari Calcium (8.4-10.2) mg/dL Total Bilirubin (0.2-1.3) mg/dL AST (14-36) U/L ALT (9-52) U/L Alkaline Phosphatase (38-126) U/L Total Creatine Kinase 420 H (30-135) U/L CK-MB (CK-2) 13.2 H* (0.0-2.4) ng/mL CK-MB (CK-2) Rel Index 3.1 Troponin I 0.018 (0.000-0.034) ng/mL NT-Pro-B Natriuret Pep pg/mL Total Protein (6.3-8.2) g/dL Albumin (3.5-5.0) g/dL 06/27/17 06/27/17 06/27/17 Range/Units 03:10 03:10 03:10 WBC (3.8-10.6) k/uL RBC (3.80-5.40) m/uL Hgb (11.4-16.0) gm/dL Hct (34.0-46.0) % MCV (80.0-100.0) fL MCH (25.0-35.0) pg MCHC (31.0-37.0) g/dL RDW (11.5-15.5) % Plt Count (150-450) k/uL Neutrophils % % Lymphocytes % % Monocytes % % Eosinophils % % Basophils % % Neutrophils # (1.3-7.7) k/uL Lymphocytes # (1.0-4.8) k/uL Monocytes # (0-1.0) k/uL Eosinophils # (0-0.7) k/uL Basophils # (0-0.2) k/uL Hypochromasia Anisocytosis PT 11.2 (9.0-12.0) sec INR 1.2 H (<1.2) APTT 25.4 (22.0-30.0) sec D-Dimer 0.74 H (<0.60) mg/L FEU Sodium 127 L (137-145) mmol/L Potassium 4.6 (3.5-5.1) mmol/L Chloride 84 L (98-107) mmol/L Carbon Dioxide 29 (22-30) mmol/L Anion Gap 14 mmol/L BUN 53 H (7-17) mg/dL Creatinine 1.40 H (0.52-1.04) mg/dL Est GFR (MDRD) Af Amer 46 (>60 ml/min/1.73 sqM) Est GFR (MDRD) Non-Af 38 (>60 ml/min/1.73 sqM) Glucose 110 H (74-99) mg/dL POC Glucose (mg/dL) (75-99) mg/dL POC Glu [employer] Professor ID Calcium 9.6 (8.4-10.2) mg/dL Total Bilirubin 0.5 (0.2-1.3) mg/dL AST 1186 H (14-36) U/L ALT 1073 H (9-52) U/L Alkaline Phosphatase 169 H (38-126) U/L Total Creatine Kinase (30-135) U/L CK-MB (CK-2) (0.0-2.4) ng/mL CK-MB (CK-2) Rel Index Troponin I (0.000-0.034) ng/mL NT-Pro-B Natriuret Pep 07678 pg/mL Total Protein 7.5 (6.3-8.2) g/dL Albumin 4.3 (3.5-5.0) g/dL - EKG Data -: EKG Interpreted by Me EKG shows normal: sinus rhythm, axis (Left axis deviation), intervals (Normal) Rate: normal (Rate 63 bpm) Interpretation: nonspecific ST-T wave changes Critical Care Time Critical Care Time: Yes (30 minutes) Disposition Clinical Impression: Pneumonia, Congestive heart failure, Elevated transaminase level, Dyspnea, Hyponatremia, Acute kidney injury Disposition: ADMITTED IP TO THIS [facility] Condition: Poor
[2017-06-27] MEDS: IPRATROPIUM 0.5 MG/2.5 ML NEBU INHALATION SCH ×4 (08:19→20:19)
[2017-06-27] MEDS: SYMBICORT 160-4.5 MCG INHALER INHALATION SCH ×2 (08:19→20:20)
--- NOTE | 2017-06-27 08:23 | US ---
EXAMINATION TYPE: US abdomen limited DATE OF EXAM: 06/27/2017 COMPARISON: CT same day CLINICAL HISTORY: 61-year-old female Pain, attention RUQ. Pain, TECHNIQUE: Multiple sonographic images of the right upper quadrant are obtained. FINDINGS: ENVIRONMENTAL PROTECTION GEOLOGIST NOTES: patient unresponsive, difficult exam Liver Length: 15.5 cm Gallbladder Wall: 0.2 cm CBD: 5.7 mm Right Kidney: 10.1 x 4.4 x 4.3 cm Pancreas: Obscured by bowel gas Liver: Normal homogeneous echotexture. The 9 mm posterior right hepatic dome lesion seen on CT not a pparent on the current study. Gallbladder: Mildly hydropic with sludge. No abnormal wall thickening or pericholecystic fluid. Evidence for sonographic Chacon's sign: No CBD: Upper limits of normal in caliber. Right Kidney: No hydronephrosis. Possible calcification in the mid pole measuring 4 mm likely vascul ar calcification. The lower pole is obscured by bowel gas shadowing. IMPRESSION: 1. Technically difficult exam as noted above. 2. The 9 mm hypodense lesion posterior right hepatic dome seen on CT is not apparent on the present s tudy. The CT finding is too small for accurate CT characterization and may represent a cyst. 3. Mildly hydropic gallbladder with sludge. Findings may relate to fasting state. If concern for samanta y acute cholecystitis, HIDA scan can be performed. 4. Suboptimal visualization of the pancreas.
--- NOTE | 2017-06-27 10:23 | CT ---
EXAMINATION TYPE: CT brain wo con DATE OF EXAM: 06/27/2017 COMPARISON: NONE HISTORY: Patient shows signs of altered mental status. CT DLP: [address] of the brain was performed. The ventricles, basal cisterns and sulci overlying the cerebral convexities demonstrate mild enlargem ent. There is no evidence for intracranial hemorrhage or sulcal effacement. There is decreased attenuation about the periventricular white matter and deep white matter of both c erebral hemispheres, compatible with chronic small vessel ischemia. Differential diagnosis does inclu de demyelination. No mass effects are seen.No midline shift. Osseous calvarium is intact. Chronic paranasal sinusitis. If symptoms persist consider MRI. IMPRESSION: 1. Age related atrophic and chronic small vessel ischemic change without acute intracranial process s een at this time.
[2017-06-27] MEDS: MAGNESIUM OXIDE 400 MG TAB PO SCH (10:26)
[2017-06-27] MEDS: SPIRONOLACTONE 25 MG TAB PO SCH (10:26)
[2017-06-27] MEDS: PARoxetine 10 MG TAB PO SCH ×3 (10:26→20:53)
[2017-06-27] MEDS: CALCIUM CARBONATE 500 MG CHEWABLE PO SCH (10:26)
[2017-06-27] MEDS: buPROPion XL 150 MG TAB.ER.24H PO SCH (10:26)
[2017-06-27] MEDS: GABAPENTIN 400 MG CAP PO SCH ×4 (10:26→20:53)
[2017-06-27] MEDS: PROPRANOLOL 40 MG TAB PO SCH ×3 (10:26→20:53)
[2017-06-27] MEDS: METOPROLOL SUCCINATE (ER) 50 MG TAB.ER.24H PO SCH (10:26)
[2017-06-27] MEDS: CYANOCOBALAMIN 500 MCG TAB PO SCH (10:26)
[2017-06-27] MEDS: PRIMIDONE 50 MG TAB PO SCH ×4 (10:27→20:53)
[2017-06-27] MEDS: FUROSEMIDE 10 MG/ML 4 ML VIAL IV SCH ×2 (10:27→20:27)
[2017-06-27] MEDS: MULTIVITAMINS, THERA 1 EACH TAB PO SCH (10:27)
[2017-06-27] MEDS: CLOPIDOGREL 75 MG TAB PO SCH (10:27)
[2017-06-27] MEDS: NITROGLYCERIN OINT 1 INCH/GM PACKET TOPICAL SCH ×4 (10:27→20:29)
[2017-06-27] MEDS: VITAMIN E (DL,TOCOPHERYL ACET) 400 UNIT CAP PO SCH (10:27)
[2017-06-27 10:57] LABS: Appearance,Urine Cloudy (Clear); Bacteria,Urine Rare /hpf; Bilirubin,Urine Negative (Negative); Blood,Urine Negative (Negative); Color,Urine Yellow; Glucose,Urine (UA) Negative (Negative); Hyaline Casts,Urine 4 /lpf (0-2); Ketones,Urine Trace (Negative); Leukocyte Esterase,Urine Trace (Negative); Mucus,Urine Rare /hpf; Nitrite,Urine Negative (Negative); PH, Urine 5.5 (5.0-8.0); Protein,Urine Trace (Negative); Specific Gravity,Urine 1.015 (1.001-1.035); Squamous Epithelial Cell,Urine 4 /hpf (0-4); Urobilinogen,Urine <2.0 mg/dL (<2.0); WBC,Urine 4 /hpf (0-5)
[2017-06-27 11:15] LABS: ABG Base Excess 2.1 mmol/L; ABG HCO3 26 mmol/L (21-25); ABG Oxygen Saturation 96.5 % (94-97); ABG PCO2 43 mmHg (35-45); ABG PH 7.41 (7.35-7.45); ABG PO2 86 mmHg (83-108); ABG TCO2 28 mmol/L (19-24)
[2017-06-27] MEDS: ATORVASTATIN 80 MG TAB PO SCH ×2 (20:27→20:52)
[2017-06-27] MEDS: AMITRIPTYLINE HCL 25 MG TAB PO SCH (20:27)
[2017-06-27] MEDS: LATANOPROST 0.005% OPHTH DROPS 2.5 ML BTL LEFT EYE SCH (20:28)
[2017-06-27] MEDS: HYDROcodone/APAP 10-325MG 1 EACH TAB PO PRN (21:05)
[2017-06-27] MEDS: LORazepam 0.5 MG TAB PO PRN (21:05)
[2017-06-27] MEDS: HEPARIN SODIUM,PORCINE 5,000 UNIT/ML 1 ML VIAL SQ SCH (22:32)
[2017-06-28 06:13] LABS: Anisocytosis Slight; Basophils # (A) 0.1 k/uL (0-0.2); Basophils % (A) 1 %; Eosinophils # (A) 0.3 k/uL (0-0.7); Eosinophils % (A) 2 %; HCT 35.2 % (34.0-46.0); HGB 10.2 gm/dL (11.4-16.0); Hypochromasia Marked; Lymphocytes # (A) 1.9 k/uL (1.0-4.8); Lymphocytes % (A) 14 %; MCH 23.4 pg (25.0-35.0); MCHC 29.1 g/dL (31.0-37.0); MCV 80.3 fL (80.0-100.0); Mean Platelet Volume 6.7; Microcytosis Slight; Monocytes # (A) 1.2 k/uL (0-1.0); Monocytes % (A) 10 %; Neutrophils % (A) 70 %; Platelet Count 548 k/uL (150-450); RBC 4.38 m/uL (3.80-5.40); RDW 18.2 % (11.5-15.5); WBC 12.9 k/uL (3.8-10.6)
[2017-06-28] MEDS: PANTOPRAZOLE 40 MG TABLET PO SCH ×2 (06:23→06:25)
[2017-06-28 06:43] LABS: ALT 601 U/L (9-52); AST 402 U/L (14-36); Albumin 3.2 g/dL (3.5-5.0); Alkaline Phosphatase 128 U/L (38-126); Amylase 227 U/L (30-110); Anion Gap 7 mmol/L; Blood Urea Nitrogen 32 mg/dL (7-17); Calcium 8.3 mg/dL (8.4-10.2); Carbon Dioxide 33 mmol/L (22-30); Chloride 93 mmol/L (98-107); Glucose 104 mg/dL (74-99); Lipase 223 U/L (23-300); Magnesium 2.3 mg/dL (1.6-2.3); Potassium 4.3 mmol/L (3.5-5.1); Sodium 133 mmol/L (137-145); Total Bilirubin 0.4 mg/dL (0.2-1.3); Total Protein 6.1 g/dL (6.3-8.2)
[2017-06-28] MEDS: IPRATROPIUM 0.5 MG/2.5 ML NEBU INHALATION SCH ×5 (07:40→21:19)
[2017-06-28] MEDS: SYMBICORT 160-4.5 MCG INHALER INHALATION SCH ×2 (07:40→21:19)
--- NOTE | 2017-06-28 08:29 | CONS ---
CONSULTATION DATE OF CONSULTATION: 06/27/2017 CHIEF COMPLAINT: Altered mental status. HISTORY OF PRESENT ILLNESS: Mrs. Benítez is a 61-year-old female, who is being evaluated by the Neurology Service per the request of Dr. Figueredo for altered mental status. The patient was brought into [facility] Emergency Room with the chief complaint of shortness of breath. She has been having significant coughing and lightheadedness at home and was having shortness of breath which led to a syncopal episode at home. She did suffer a head injury with a syncopal episode and does have a bruise above her right eye. In the emergency room, she was noticed to be somewhat confused. A CT scan of the brain was done, which showed no acute intracranial abnormalities. There was generalized atrophy seen and small-vessel ischemic changes. Her laboratory workup showed leukocytosis at 19.4, and thrombocytosis at 718,000. Her comprehensive metabolic profile showed hyponatremia at 127 and low chloride at 84. Her BUN and creatinine were elevated at 53 and 1.4 respectively. Her liver enzymes were significantly elevated with an AST of 1183 and an ALT of 1073. Her urinalysis showed 4 WBCs with trace leukocyte esterase. Her cardiac enzymes showed elevated CPK at 420, elevated CK-MB at 13.2, with a normal troponin I level. Her BNP was significantly elevated at 14,400. At the time of my evaluation, the patient is lying in her bed and appears to be somewhat restless. She is having frequent coughing episodes and she was diagnosed with pneumonia and started on antibiotics. Pulmonology is following the patient. The patient does treat with me in the outpatient setting for benign familial tremors. She is currently on Mysoline 50 mg 3 times daily for this. PAST MEDICAL HISTORY: Benign familial tremor, coronary artery disease, congestive heart failure, chronic obstructive pulmonary disease, gastroesophageal reflux disease, dyslipidemia, history of myocardial infarction, peripheral vascular disease, osteoporosis, history of breast cancer, chronic pain syndrome, history of , coronary artery bypass grafting, coronary artery stent placement, orthopedic surgeries, breast surgery. She also has history of depression and anxiety disorder. SOCIAL HISTORY: The patient is a current every day smoker. She denies any alcohol or drug use. FAMILY HISTORY: Positive for heart failure and diabetes. HOME MEDICATIONS: Reviewed in the chart. ALLERGIES: CIPRO. REVIEW OF SYSTEMS: CONSTITUTIONAL: Positive for fatigue. EYES: Positive for chronic visual changes. ENT: Negative. CARDIOVASCULAR: Negative. RESPIRATORY: As mentioned above. GASTROINTESTINAL: Positive for occasional heartburn. NEUROLOGICAL: As mentioned above. GENITOURINARY: Negative. DERMATOLOGICAL: Negative. MUSCULOSKELETAL: Positive for chronic low back pain. ENDOCRINE: Negative. PSYCHIATRIC: Positive for history of depression and anxiety. PHYSICAL EXAM: Vital signs show a temperature of 97.6, pulse 65, respiration 20, blood pressure 101/60. GENERAL APPEARANCE: The patient is a thin female who appears to be somewhat restless. HEENT: Mild bruising is seen over her right eye. No facial asymmetry is seen. NECK: Supple with no masses felt. CARDIOVASCULAR: Regular rate and rhythm. ABDOMEN: Nontender, nondistended. EXTREMITIES: Showed no edema or clubbing. NEUROLOGICAL EXAM: The patient is awake and oriented x3. Speech and language are normal. Strength appears to be full in all 4 extremities. Sensory exam was normal to light touch in all 4 extremities. Postural tremors are seen in bilateral upper extremities. No facial asymmetry is seen on cranial nerve testing. IMPRESSION: 1. Altered mental status. 2. Multifactorial encephalopathy. 3. Hepatic insufficiency. 4. Renal insufficiency. 5. Pneumonia. 6. Benign familial tremor. 7. Small vessel ischemic disease. RECOMMENDATION: The patient's altered mental status is likely due to multifactorial encephalopathy given the infectious and metabolic state. She was diagnosed with pneumonia and is currently on antibiotics. There is significant concerns regarding her laboratory workup as she has hepatic failure and renal insufficiency and evidence of acute exacerbation of congestive heart failure. I will order an EEG and serum ammonia level. I do recommend a Nephrology consultation. Continue antibiotic therapy. Continue neuro checks. I will continue to follow with you. Further recommendations to follow. Thank you for allowing me to participate in the care of your patient. If you have any questions, please feel free to contact me. MMODL / IJN: [id number] /
[2017-06-28] MEDS: HEPARIN SODIUM,PORCINE 5,000 UNIT/ML 1 ML VIAL SQ SCH ×3 (09:03→23:30)
[2017-06-28] MEDS: FUROSEMIDE 10 MG/ML 4 ML VIAL IV SCH (09:04)
--- NOTE | 2017-06-28 09:14 | P.CRDCN ---
History of Present Illness Consult date: 06/28/17 Requesting physician: Pardeep Jimenez Consult reason: congestive heart failure Chief complaint: Mental status changes and weakness History of present illness: His is a 61-year-old female who follows regularly with Dr. Gan in the office. She has a known history of coronary artery disease with prior stenting of the RCA in 2014, patient also had coronary artery bypass grafting surgery in 2017. History of PAD with prior peripheral stenting, hypertension, hyperlipidemia, nicotine dependence, ischemic cardiomyopathy with prior documented ejection fraction of 30-35%, severe pulmonary hypertension, repeat echocardiogram with Doppler study which was performed on May 2017 revealed an ejection fraction of 50-55%. moderate to severe emphysema and COPD. Patient does have history of breast cancer, anxiety and tremors. She states that she was taking Mysoline for her tremors, and in spite of that her tremors had been getting significantly worse. For this reason she went to see her neurologist to put her on a new medication, she states that after taking this medication she became quite delirious and confused, she also states that she was so weak she was unable to get up out of the bed. For this reason she came to the emergency room for further evaluation. Patient does appear to be short of breath while lying in bed, she states that her breathing is no different than her usual according to her. She does state that she has had a recent pneumonia for which she was treated by Dr. Cardoso. Chest x-ray on admission reveals possible trace pleural effusions with bibasilar lung opacities which may represent atelectasis and or infiltrate. Just of the abdomen was performed which revealed a 9 mm hypodense lesion in the posterior right hepatic dome. Mildly hydropic gallbladder with sludge. EKG showed a normal sinus rhythm with no acute changes. CAT scan of the brain was performed which revealed age- related atrophic and chronic small vessel ischemic change without acute intracranial process. Blood pressure on arrival here 196/70 with a heart rate in the 60s, 95 as of oxygen. Blood pressure this morning 90/50 with a heart rate in the 60s, 93% on 2 L. Laboratory data was reviewed, white blood cell count 19.4 on admission, 12.9 this morning. Hemoglobin 10.2, platelet count 548. D-dimer 0.74. ABGs were performed, pH 7.4, pCO2 43, pO2 86, HCO3 26, total CO2 28, oxygen saturation 96. Sodium on admission 127, 133 this morning. Potassium 4.3, BUN on admission 53, creatinine 1.4, 32 and 0.8 this morning. A mag level 2.3. AST and admission 1186, 402 this morning, ALT 1073, 601 this morning, alk phos 169, 128 this morning her troponins 0.018, 0.015, 0.014. BNP level 14,400. At the time of my examination this morning, patient is alert and oriented 3, she does appear to be quite short of breath, sitting up in the bed. She was initiated on IV Lasix in the emergency room. She is incontinent of urine. Her weight is unchanged from yesterday. Past Medical History Past Medical History: Coronary Artery Disease (CAD), Cancer, Heart Failure, COPD , Eye Disorder, GERD/Reflux, Hyperlipidemia, Myocardial Infarction ([place]), Respiratory Disorder, Vascular Disorder Additional Past Medical History / Comment(s): chronic hypoxic respiratory failure, CHF with an ejection fraction of less than 20% with significant degree of secondary pulmonary hypertension, ischemic cardiac myopathy, O2 1.5L/NC at , celiac disease,R breast cancer, osteoporosis, PAD, chronic pain L wrist ( previous injury with sx), L eye possible glaucoma, sinus problems. Last Myocardial Infarction Date:: 2014 History of Any Multi-Drug Resistant Organisms: None Reported Past Surgical History: Breast Surgery, Section, Coronary Bypass/CABG, Heart Catheterization With Stent, Orthopedic Surgery Additional Past Surgical History / Comment(s): 11/2016 CABG 4 vessel with mitral/ tricuspid surgery at [facility]-also had thoracentesis, R breast lumpectomy, L WRIST SX X3, D&C, 11-01-14 AORTAGRAM W/RUNOFF- CECILIO ILIAC STENTS, colonoscopy. Past Anesthesia/Blood Transfusion Reactions: No Reported Reaction Additional Past Anesthesia/Blood Transfusion Reaction / Comment(s): no hx blood transfusion Date of Last Stent Placement:: 2014 Past Psychological History: Anxiety, Depression Smoking Status: Current every day smoker Past Alcohol Use History: None Reported Past Drug Use History: None Reported - Past Family History Mother Family Medical History: Congestive Heart Failure (CHF), Diabetes Mellitus Additional Family Medical History / Comment(s): HEART ISSSUES. Mother of CHF at the age of 69yrs. Father Family Medical History: Blood Disorder Additional Family Medical History / Comment(s): HEMACHROMATOSIS. Father at the age of 69yrs from cirrhosis. He was not a drinker. Medications and Allergies Home Medications Medication Instructions Recorded Confirmed Type Gabapentin 400 mg PO TID 06/24/14 06/27/17 History Hydrocodone/Acetaminophen 1 tab PO Q8H PRN 06/24/14 06/27/17 History [Hydrocodone/Acetaminophen 10-325] Budesonide-Formot 160-4.5 Mcg 2 puff INHALATION RT-BID #1 inhaler 06/29/1406/27 Rx [Symbicort 160-4.5 Mcg Inhaler] Atorvastatin [Lipitor] 80 mg PO HS #30 tab 07/18/14 06/27/17 Rx Nitroglycerin Sl Tabs [Nitrostat] 0.4 mg SUBLINGUAL Q5M PRN #25 tab 07/18/14 Rx Cyanocobalamin [Vitamin B-12] 500 mcg PO DAILY 07/21/14 06/27/17 History Multivitamins, Thera [Multivitamin 1 tab PO DAILY 07/21/14 06/27/17 History (formulary)] Primidone [Mysoline] 50 mg PO TID 10/29/14 06/27/17 History Aspirin 81 mg PO DAILY 09/17/15 06/27/17 History Tiotropium [place] [Spiriva] 18 mcg INHALATION RT-DAILY 09/17/15 06/27/17 History Vitamin E 1,000 unit PO DAILY 09/17/15 06/27/17 History Latanoprost Ophth [Xalatan 0.005%] 1 drops LEFT EYE HS 08/05/16 06/27/17 History Clopidogrel [Plavix] 75 mg PO DAILY #30 tab 08/06/16 06/27/17 Rx Albuterol Nebulized [Ventolin 2.5 mg INHALATION RT-Q4H PRN 12/04/16 06/27/17 History Nebulized] Calcium Carbonate [Calcium] 600 mg PO DAILY 12/04/16 06/27/17 History Magnesium Gluconate [Magonate] 1,000 mg PO DAILY 12/04/16 06/27/17 History Famotidine [Pepcid] 20 mg PO DAILY PRN 02/11/17 06/27/17 History Furosemide [Lasix] 40 mg PO DAILY 02/11/17 06/27/17 History Metoprolol Succinate (ER) [Toprol 50 mg PO DAILY 02/11/17 06/27/17 History XL] Spironolactone [Aldactone] 25 mg PO DAILY 02/11/17 06/27/17 History buPROPion XL [Wellbutrin XL] 150 mg PO DAILY 02/11/17 06/27/17 History PARoxetine HCL [Paxil] 30 mg PO BID 03/26/17 06/27/17 History Amitriptyline HCl [Elavil] 25 mg PO HS 05/11/17 06/27/17 History Propranolol [Inderal] 40 mg PO BID 06/27/17 06/27/17 History Allergies Allergy/AdvReac Type Severity Reaction Status Date / Time cipro eye drop AdvReac eye and Uncoded 06/27/17 07:35 surrounding tissue swelling Physical Exam Vitals: Vital Signs Temp Pulse Pulse Pulse Resp BP BP 06/28/17 07:55 64 06/28/17 07:42 65 06/28/17 04:00 97.8 F 60 60 16 91/52 06/27/17 23:43 97 F L 64 16 93/58 06/27/17 20:20 68 06/27/17 20:00 98 F 68 18 109/60 06/27/17 17:55 97.6 F 65 20 101/60 06/27/17 16:55 62 16 104/54 06/27/17 15:27 65 06/27/17 15:18 65 06/27/17 14:24 65 16 107/53 06/27/17 12:56 06/27/17 11:24 60 06/27/17 11:14 60 Pulse Ox 06/28/17 07:55 06/28/17 07:42 06/28/17 04:00 93 L 06/27/17 23:43 97 06/27/17 20:20 95 06/27/17 20:00 98 06/27/17 17:55 97 06/27/17 16:55 95 06/27/17 15:27 06/27/17 15:18 06/27/17 14:24 100 06/27/17 12:56 95 06/27/17 11:24 06/27/17 11:14 Intake and Output 01/06/28/17 06/28/17 22:59 06:59 14:59 Intake Total 300 80 480 Balance 300 80 480 Intake: IV 160 80 Sodium Chloride 0.9% 1, 160 80 000 ml @ 999 mls/hr IV . Q1H1M ONE Rx#:[id number] Oral 140 480 Other: Voiding Method Diaper Diaper Incontinent Incontinent # Voids 1 2 # Bowel Movements 1 Weight 50 kg PHYSICAL EXAMINATION: HEENT: [Head is atraumatic, normocephalic. Pupils equal, round. Neck is supple. There is elevated jugular venous pressure.] HEART EXAMINATION: [Heart S1, S2 normal. No murmur or gallop heard.] CHEST EXAMINATION: Lungs reveal decreased air exchange throughout with fine expiratory wheezing. ABDOMEN: [ Soft, mild tenderness in right upper quadrant. Bowel sounds are heard. No organomegaly noted]. EXTREMITIES:[ 1+ peripheral pulses with no evidence of peripheral edema and no calf tenderness noted]. She does have a cast on her left arm from a recent fracture in May. NEUROLOGIC [patient is awake, alert and oriented -3.] . Results 06/28/17 05:39 06/28/17 05:39 Cardiac Enzymes 06/27/17 06/27/17 06/28/17 Range/Units 11:10 15:28 05:39 AST 402 H (14-36) U/L Troponin I 0.015 0.014 (0.000-0.034) ng/mL CBC 06/28/17 Range/Units 05:39 WBC 12.9 H (3.8-10.6) k/uL RBC 4.38 (3.80-5.40) m/uL Hgb 10.2 L (11.4-16.0) gm/dL Hct 35.2 (34.0-46.0) % Plt Count 548 H (150-450) k/uL Comprehensive Metabolic Panel 06/28/17 Range/Units 05:39 Sodium 133 L (137-145) mmol/L Potassium 4.3 (3.5-5.1) mmol/L Chloride 93 L (98-107) mmol/L Carbon Dioxide 33 H (22-30) mmol/L BUN 32 H (7-17) mg/dL Creatinine 0.80 (0.52-1.04) mg/dL Glucose 104 H (74-99) mg/dL Calcium 8.3 L (8.4-10.2) mg/dL AST 402 H (14-36) U/L ALT 601 H (9-52) U/L Alkaline Phosphatase 128 H (38-126) U/L Total Protein 6.1 L (6.3-8.2) g/dL Albumin 3.2 L (3.5-5.0) g/dL Current Medications Generic Name Dose Route Start Last Admin Trade Name Freq PRN Reason Stop Dose Admin Hydrocodone Bitart/Acetaminophen 1 each 06/27/17 07:30 06/27/17 21:05 Jeremiah 10 PO 1 each Q8H PRN Administration Pain Amitriptyline HCl 25 mg 06/27/17 21:00 06/27/17 20:27 Elavil PO Not Given HS AGUILA Atorvastatin Calcium 80 mg 06/27/17 21:00 06/27/17 20:52 Lipitor PO Not Given HS AGUILA Budesonide/Formoterol Fumarate 2 puff 06/27/17 08:00 06/28/17 07:40 Symbicort 160-4.5 Mcg Inhaler INHALATION 2 puff RT-BID AGUILA Administration Bupropion HCl 150 mg 06/27/17 09:00 06/27/17 10:26 Wellbutrin Xl PO 150 mg DAILY AGUILA Administration Calcium Carbonate/Glycine 500 mg 06/27/17 09:00 06/27/17 10:26 Tums PO 500 mg DAILY AGUILA Administration Clopidogrel Bisulfate 75 mg 06/27/17 09:00 06/27/17 10:27 Plavix PO 75 mg DAILY AGUILA Administration Cyanocobalamin 500 mcg 06/27/17 09:00 06/27/17 10:26 Vitamin B-12 PO 500 mcg DAILY AGUILA Administration Famotidine 20 mg 06/27/17 07:30 Pepcid PO DAILY PRN reflux Furosemide 40 mg 06/27/17 08:00 06/27/17 20:27 Lasix IV 40 mg Q12H AGUILA Administration Gabapentin 400 mg 06/27/17 09:00 06/27/17 20:53 Neurontin PO Not Given TID AGUILA Heparin Sodium (Porcine) 5,000 unit 06/28/17 00:00 06/27/17 22:32 Heparin SQ 5,000 unit Q8HR AGUILA Administration Levofloxacin 500 mg/ IV 100 mls @ 100 mls/hr 06/28/17 09:00 Solution IVPB Q24H [facility] Ipratropium [place] 0.5 mg 06/27/17 08:00 06/28/17 07:40 Atrovent Nebulized INHALATION 0.5 mg RT-QID AGUILA Administration Latanoprost 1 drops 06/27/17 21:00 06/27/17 20:28 Xalatan 0.005% LEFT EYE 1 drops HS AGUILA Administration Lorazepam 0.5 mg 06/27/17 21:00 06/27/17 21:05 Ativan PO 0.5 mg Q6H PRN Administration Anxiety Magnesium Oxide 400 mg 06/27/17 09:00 06/27/17 10:26 Mag-Ox PO 400 mg DAILY [facility] Administration Metoprolol Succinate 50 mg 06/27/17 09:00 06/27/17 10:26 Toprol Xl PO 50 mg DAILY [facility] Administration Multivitamins 1 each 06/27/17 09:00 06/27/17 10:27 Theragran PO 1 each DAILY [facility] Administration Nitroglycerin 0.5 inch 06/27/17 09:00 06/27/17 20:29 Nitro-Bid Oint TOPICAL Not Given QID [facility] Nitroglycerin 0.4 mg 06/27/17 07:30 Nitrostat SUBLINGUAL Q5M PRN Chest Pain Pantoprazole Sodium 40 mg 06/28/17 07:30 06/28/17 06:25 Protonix PO Not Given AC-BRKFST [facility] Paroxetine HCl 30 mg 06/27/17 09:00 06/27/17 20:53 Paxil PO Not Given BID [facility] Primidone 50 mg 06/27/17 09:00 06/27/17 20:53 Mysoline PO Not Given TID [facility] Propranolol HCl 40 mg 06/27/17 09:00 06/27/17 20:53 Inderal PO Not Given BID [facility] Sodium Chloride 10 ml 06/27/17 09:00 06/27/17 20:29 Saline Flush IV 10 ml BID [facility] Administration Spironolactone 25 mg 06/27/17 09:00 06/27/17 10:26 Aldactone PO 25 mg DAILY [facility] Administration Vitamin E 800 unit 06/27/17 09:00 06/27/17 10:27 Vitamin E PO 800 unit DAILY [facility] Administration Intake and Output 06/27/17 06/28/17 06/28/17 22:59 06:59 14:59 Intake Total 300 80 480 Balance 300 80 480 Intake: IV 160 80 Sodium Chloride 0.9% 1, 160 80 000 ml @ 999 mls/hr IV . Q1H1M ONE Rx#:[id number] Oral 140 480 Other: Voiding Method Diaper Diaper Incontinent Incontinent # Voids 1 2 # Bowel Movements 1 Weight 50 kg 06/28/17 05:39 06/28/17 05:39 EKG Interpretations (text) EKG shows a normal sinus rhythm no acute changes noted. Assessment and Plan Plan: Assessment and plan #1 mental status changes with associated delirium and weakness, likely secondary to new medication administered for tremors. Alert and oriented 3 this morning. CAT scan of the brain did not reveal any significant abnormalities. #2 shortness of breath, likely secondary to combination of recent pneumonia, COPD exacerbation, and congestive heart failure, diastolic in nature acute on chronic. BNP level 14,400. Chest X-ray does not show any significant heart failure #3 known history of coronary artery disease with prior bypass surgery and stent placement. Patient also has history of mitral valve repair #4 severe PAD with prior stent placements Number 5 hypertension #6 hyperlipidemia #7 nicotine dependence #8 COPD #9 anxiety #10 abnormal liver enzymes, improving this morning. Could be secondary to congestion #11 Hyponatremia, improved this morning. 133 this morning #127 on admission. Creatinine 1.4 on admission 0.8 this morning. Suggesting mild dehydration on admission. Plan Recent echocardiogram with Doppler study performed in May revealed an ejection fraction of 50-55%. We'll not repeat an echo. Continue current dose of IV Lasix. We'll put the patient on a baby aspirin daily. Discontinue propranolol. Continue Lipitor 80, Plavix 75 mg daily, discontinue Nitropaste. Further recommendations to follow. DNP note has been reviewed, I agree with a documented findings and plan of care. Patient was seen and examined.
--- NOTE | 2017-06-28 09:31 | P.PN ---
Progress Note - Text This is an addendum to the dictated cardiology consultation. The patient has a known history of cardiomyopathy, CAD and mitral valve disease status post CABG and mitral valve repair, history of CAD as well history of chronic tobacco use was been having episode of tremors and recently her medical regimen was adjusted he presented to the hospital was progressive weakness, confusion, cough and possible fever. At home while sitting and working on the computer she had a syncopal episode lasting for a few seconds not associated with any arrhythmia or chest discomfort. She has not been active recently. On presentation she was noted to have abnormal renal function test, liver test as well as elevated NT proBNP. She denies any recent peripheral edema, she has no PND nor orthopnea. Her physical examination is consistent with decreased air exchange with scattered rhonchi, she is in sinus mechanism with a murmur, systolic and she has no peripheral edema. Her lab data today showed improvement in her renal function and liver function suggestive of a episode of hypotension that could have exacerbated her presentation. She does not appear clinically to have significant fluid overload but we will continue on the anticoagulation. We will follow her rhythm and depending on the trend further recommendations will be made. Her renal functions will be followed closely. Thank you for this consult we will follow with you.
[2017-06-28] MEDS: CALCIUM CARBONATE 500 MG CHEWABLE PO SCH (09:49)
[2017-06-28] MEDS: GABAPENTIN 400 MG CAP PO SCH ×3 (09:50→22:19)
[2017-06-28] MEDS: PRIMIDONE 50 MG TAB PO SCH ×3 (09:50→22:19)
[2017-06-28] MEDS ORDERED: LACTULOSE 20 GM/30 ML CUP PO ONE (09:50)
[2017-06-28] MEDS: SPIRONOLACTONE 25 MG TAB PO SCH (09:50)
[2017-06-28] MEDS: VITAMIN E (DL,TOCOPHERYL ACET) 400 UNIT CAP PO SCH (09:50)
[2017-06-28] MEDS: ASPIRIN 81 MG PO SCH (09:50)
[2017-06-28] MEDS: buPROPion XL 150 MG TAB.ER.24H PO SCH (09:51)
[2017-06-28] MEDS: CLOPIDOGREL 75 MG TAB PO SCH (09:51)
[2017-06-28] MEDS: CYANOCOBALAMIN 500 MCG TAB PO SCH (09:51)
[2017-06-28] MEDS: LEVOFLOXACIN 500MG-D5W PMX 500 MG in DEXTROSE/WATER 1 100ML.BAG IVPB SCH (09:52)
[2017-06-28] MEDS: METOPROLOL SUCCINATE (ER) 50 MG TAB.ER.24H PO SCH (09:52)
[2017-06-28] MEDS: MAGNESIUM OXIDE 400 MG TAB PO SCH (09:52)
[2017-06-28] MEDS: MULTIVITAMINS, THERA 1 EACH TAB PO SCH (09:53)
[2017-06-28] MEDS: PARoxetine 10 MG TAB PO SCH ×2 (09:54→19:59)
[2017-06-28 10:38] VITALS: BMI 20.1
--- NOTE | 2017-06-28 10:41 | P.NPCON ---
History of Present Illness - Reason for Consult acute renal failure - History of Present Illness Reason for consultation: Acute kidney injury History of present illness: Patient is a 61-year-old female seen in renal consultation for acute kidney injury. Her baseline creatinine is 1 and was elevated at 1.4 this admission. Patient presented with tremors as well as confusion. According to the patient she was recently started on propanolol which she believes led to the tremors. Currently she is resting in bed. Tremors have resolved. Oral intake is good. Admits to good urine output. No hematuria or dysuria. Denies regular use of NSAIDs. Denies any personal or family history of renal disease. She does a history of diastolic CHF and is currently maintained on Lasix 40 mg IV twice daily. No edema noted. Denies vomiting or diarrhea. Denies chest pain or shortness of breath. Her blood pressures were also low in the systolic 90s to low 100s but most recent blood pressure was 129/62. No evidence of hydronephrosis noted on CAT scan of abdomen and pelvis. Urinalysis revealed only trace proteinuria without any evidence of hematuria. Vital signs are stable. General: The patient appeared well nourished and normally developed. HEENT: Head exam is unremarkable. Neck is without jugular venous distension. LUNGS: Lungs are clear to auscultation and percussion. Breath sounds decreased. HEART: Rate and Rhythm are regular. First and second heart sounds normal. No murmurs, rubs or gallops. ABDOMEN: Abdominal exam reveals normal bowel sounds. Non-tender and non- distended. No evidence of peritonitis. EXTREMITITES: No clubbing, cyanosis, or edema. Past Medical History Past Medical History: Coronary Artery Disease (CAD), Cancer, Heart Failure, COPD , Eye Disorder, GERD/Reflux, Hyperlipidemia, Myocardial Infarction ([place]), Respiratory Disorder, Vascular Disorder Additional Past Medical History / Comment(s): chronic hypoxic respiratory failure, CHF with an ejection fraction of less than 20% with significant degree of secondary pulmonary hypertension, ischemic cardiac myopathy, O2 1.5L/NC at HS , celiac disease,R breast cancer, osteoporosis, PAD, chronic pain L wrist ( previous injury with sx), L eye possible glaucoma, sinus problems. Last Myocardial Infarction Date:: 2014 History of Any Multi-Drug Resistant Organisms: None Reported Past Surgical History: Breast Surgery, Section, Coronary Bypass/CABG, Heart Catheterization With Stent, Orthopedic Surgery Additional Past Surgical History / Comment(s): 11/2016 CABG 4 vessel with mitral/ tricuspid surgery at [facility]-also had thoracentesis, R breast lumpectomy, L WRIST SX X3, D&C, 11-01-14 AORTAGRAM W/RUNOFF- CECILIO ILIAC STENTS, colonoscopy. Past Anesthesia/Blood Transfusion Reactions: No Reported Reaction Additional Past Anesthesia/Blood Transfusion Reaction / Comment(s): no hx blood transfusion Date of Last Stent Placement:: 2014 Past Psychological History: Anxiety, Depression Smoking Status: Current every day smoker Past Alcohol Use History: None Reported Past Drug Use History: None Reported - Past Family History Mother Family Medical History: Congestive Heart Failure (CHF), Diabetes Mellitus Additional Family Medical History / Comment(s): HEART ISSSUES. Mother of CHF at the age of 69yrs. Father Family Medical History: Blood Disorder Additional Family Medical History / Comment(s): HEMACHROMATOSIS. Father at the age of 69yrs from cirrhosis. He was not a drinker. Medications and Allergies Home Medications Medication Instructions Recorded Confirmed Type Gabapentin 400 mg PO TID 06/24/14 06/27/17 History Hydrocodone/Acetaminophen 1 tab PO Q8H PRN 06/24/14 06/27/17 History [Hydrocodone/Acetaminophen 10-325] Budesonide-Formot 160-4.5 Mcg 2 puff INHALATION RT-BID #1 inhaler 06/29/1406/27 Rx [Symbicort 160-4.5 Mcg Inhaler] Atorvastatin [Lipitor] 80 mg PO HS #30 tab 07/18/14 06/27/17 Rx Nitroglycerin Sl Tabs [Nitrostat] 0.4 mg SUBLINGUAL Q5M PRN #25 tab 07/18/14 Rx Cyanocobalamin [Vitamin B-12] 500 mcg PO DAILY 07/21/14 06/27/17 History Multivitamins, Thera [Multivitamin 1 tab PO DAILY 07/21/14 06/27/17 History (formulary)] Primidone [Mysoline] 50 mg PO TID 10/29/14 06/27/17 History Aspirin 81 mg PO DAILY 09/17/15 06/27/17 History Tiotropium [place] [Spiriva] 18 mcg INHALATION RT-DAILY 09/17/15 06/27/17 History Vitamin E 1,000 unit PO DAILY 09/17/15 06/27/17 History Latanoprost Ophth [Xalatan 0.005%] 1 drops LEFT EYE HS 08/05/16 06/27/17 History Clopidogrel [Plavix] 75 mg PO DAILY #30 tab 08/06/16 06/27/17 Rx Albuterol Nebulized [Ventolin 2.5 mg INHALATION RT-Q4H PRN 12/04/16 06/27/17 History Nebulized] Calcium Carbonate [Calcium] 600 mg PO DAILY 12/04/16 06/27/17 History Magnesium Gluconate [Magonate] 1,000 mg PO DAILY 12/04/16 06/27/17 History Famotidine [Pepcid] 20 mg PO DAILY PRN 02/11/17 06/27/17 History Furosemide [Lasix] 40 mg PO DAILY 02/11/17 06/27/17 History Metoprolol Succinate (ER) [Toprol 50 mg PO DAILY 02/11/17 06/27/17 History XL] Spironolactone [Aldactone] 25 mg PO DAILY 02/11/17 06/27/17 History buPROPion XL [Wellbutrin XL] 150 mg PO DAILY 02/11/17 06/27/17 History PARoxetine HCL [Paxil] 30 mg PO BID 03/26/17 06/27/17 History Amitriptyline HCl [Elavil] 25 mg PO HS 05/11/17 06/27/17 History Propranolol [Inderal] 40 mg PO BID 06/27/17 06/27/17 History Allergies Allergy/AdvReac Type Severity Reaction Status Date / Time cipro eye drop AdvReac eye and Uncoded 06/27/17 07:35 surrounding tissue swelling Physical Exam Vitals: Vital Signs Temp Pulse Pulse Pulse Resp BP BP 06/28/17 08:49 97 F L 65 20 129/62 06/28/17 07:55 64 06/28/17 07:42 65 06/28/17 04:00 97.8 F 60 60 16 91/52 06/27/17 23:43 97 F L 64 16 93/58 06/27/17 20:20 68 06/27/17 20:00 98 F 68 18 109/60 06/27/17 17:55 97.6 F 65 20 101/60 06/27/17 16:55 62 16 104/54 06/27/17 15:27 65 06/27/17 15:18 65 06/27/17 14:24 65 16 107/53 06/27/17 12:56 06/27/17 11:24 60 06/27/17 11:14 60 Pulse Ox 06/28/17 08:49 97 06/28/17 07:55 06/28/17 07:42 06/28/17 04:00 93 L 06/27/17 23:43 97 06/27/17 20:20 95 06/27/17 20:00 98 06/27/17 17:55 97 06/27/17 16:55 95 06/27/17 15:27 06/27/17 15:18 06/27/17 14:24 100 06/27/17 12:56 95 06/27/17 11:24 06/27/17 11:14 Intake and Output 06/27/17 06/28/17 06/28/17 22:59 06:59 14:59 Intake Total 300 80 480 Output Total 800 Balance 300 80 -320 Intake: IV 160 80 Sodium Chloride 0.9% 1, 160 80 000 ml @ 999 mls/hr IV . Q1H1M ONE Rx#:[id number] Oral 140 480 Output: Urine 800 Other: Voiding Method Diaper Diaper Incontinent Incontinent # Voids 1 2 # Bowel Movements 1 Weight 50 kg Results - Lab Results Most recent lab results ABG pH 7.41 (7.35-7.45) 06/27/17 11:00 ABG pCO2 43 mmHg (35-45) 06/27/17 11:00 ABG pO2 86 mmHg (83-108) 06/27/17 11:00 ABG HCO3 26 mmol/L (21-25) H 06/27/17 11:00 ABG O2 Saturation 96.5 % (94-97) 06/27/17 11:00 Calcium 8.3 mg/dL (8.4-10.2) L 06/28/17 05:39 Magnesium 2.3 mg/dL (1.6-2.3) 06/28/17 05:39 06/28/17 05:39 06/28/17 05:39 Assessment and Plan Plan: Assessment: #1. Nonoliguric acute kidney injury mostly prerenal. Resolved. Abdomen was 1.4 on admission and is down to 0.8 today. No evidence of hydronephrosis noted. #2. Hyponatremia. Currently appears euvolemic. Improved. #3. Tremors. Possibly related to propranolol which was recently started. Currently resolved. #4. Diastolic CHF. Appears compensated. Plan: I will change Lasix to 40 mg orally once daily. Maintain low salt diet. I will add 1500 mL fluid restriction. Avoid nephrotoxic agents and hypotensive episodes. Repeat electrolytes in the morning. Thank you for the consultation. I will continue to follow the patient with you during her hospital stay.
--- NOTE | 2017-06-28 11:11 | P.CONS ---
History of Present Illness - Reason for Consult Consult date: 06/28/17 Liver lesion Requesting physician: Pardeep Jimenez - History of Present Illness 61-year-old female with a history of breast carcinoma, benign familial tremors, extensive cardiac history including valvular heart disease with mitral valve repair, CAD with PCI stent, CABG 2016, PAD with peripheral stenting, hyperlipidemia, hypertension, ischemic cardiomyopathy, severe pulmonary hypertension; diastolic CHF ejection fraction 50-55% May 2017 with moderate to severe emphysema and COPD. Admitted with mental status changes weakness shortness of breath lightheadedness syncopal episode at home with recent fall a month ago with left upper extremity casting. Receiving antibiotics for suspected pneumonia. ProBNP 14,400 Systolic blood pressures 91-129. Patient was prescribed Mysoline a week ago by her neurologist for tremors. CT brain age-related atrophic and chronic small vessel ischemic changes without acute intracranial process. Consult requested for liver lesion. CT abdomen and pelvis without IV contrast reported a low density liver lesion. Ultrasound abdomen 9 mm hypodense lesion posterior right hepatic dome too small for characterization may represent a cyst., Homogenous echotexture of the liver. Gallbladder mildly hydropic with sludge. No wall thickening or pericholecystic fluid. CBD 5.7 mm. No history of known liver disease with alcoholism or hepatitis. Denies abdominal pain, jaundice or acholic stools. Incidentally liver enzymes elevated on admission total bilirubin 0.5. AST 1186. ALT 1073. Alkaline phosphatase 169. Lipase 223. INR 1.2. Platelets 718. Hemoglobin 11.5. White count 19.4. Upon review of medical records patient's transaminases alkaline phosphatase levels have been treatment only elevated over the last few years ranging between 40-600 range with normal bilirubin. Liver enzymes improving today AST 402. ALT 601 alkaline phosphatase 128. Total bilirubin 0.4. Amylase 227. Lipase 223. Ammonia 31. Review of Systems Constitutional: Denies fever, chills, sweats, weight gain, or loss. HEENT: Negative for migraines, blurred vision or loss, earaches, drainage, tinnitus, oral mucosal lesions, dysphagia, or odynophagia. CARDIAC: History of CAD. PAD. CABG. CHF. SD. Ischemic cardiomyopathy. RESPIRATORY: COPD. Emphysema. Nicotine cigarette dependency. Negative for shortness of breath, hemoptysis, cough, or sputum production. GI: See HPI for pertinent findings. : Negative for hematuria, urgency, frequency, polyuria, or dysuria. GYNc: Breast cancer. Negative vaginal discharge. MUSCULOSKELETAL: Negative for muscle aches, swelling, arthritis, and arthralgias. NEUROLOGIC: Benign familial tremors. Negative for stroke or TIA. ENDOCRINE: Negative for thyroid problems. SKIN: Negative for rash or itching. PSYCHIATRIC: Anxiety. Depression. Past Medical History Past Medical History: Coronary Artery Disease (CAD), Cancer, Heart Failure, COPD , Eye Disorder, GERD/Reflux, Hyperlipidemia, Myocardial Infarction (SD), Respiratory Disorder, Vascular Disorder Additional Past Medical History / Comment(s): chronic hypoxic respiratory failure, CHF with an ejection fraction of less than 20% with significant degree of secondary pulmonary hypertension, ischemic cardiac myopathy, O2 1.5L/NC at , celiac disease,R breast cancer, osteoporosis, PAD, chronic pain L wrist ( previous injury with sx), L eye possible glaucoma, sinus problems. Last Myocardial Infarction Date:: 2014 History of Any Multi-Drug Resistant Organisms: None Reported Past Surgical History: Breast Surgery, Section, Coronary Bypass/CABG, Heart Catheterization With Stent, Orthopedic Surgery Additional Past Surgical History / Comment(s): 11/2016 CABG 4 vessel with mitral/ tricuspid surgery at [facility]-also had thoracentesis, R breast lumpectomy, L WRIST SX X3, D&C, 11-01-14 AORTAGRAM W/RUNOFF- CECILIO ILIAC STENTS, colonoscopy. Past Anesthesia/Blood Transfusion Reactions: No Reported Reaction Additional Past Anesthesia/Blood Transfusion Reaction / Comm: no hx blood transfusion Date of Last Stent Placement:: 2014 Past Psychological History: Anxiety, Depression Smoking Status: Current every day smoker Past Alcohol Use History: None Reported Past Drug Use History: None Reported - Past Family History Mother Family Medical History: Congestive Heart Failure (CHF), Diabetes Mellitus Additional Family Medical History / Comment(s): HEART ISSSUES. Mother of CHF at the age of 69yrs. Father Family Medical History: Blood Disorder Additional Family Medical History / Comment(s): HEMACHROMATOSIS. Father at the age of 69yrs from cirrhosis. He was not a drinker. Medications and Allergies Home Medications Medication Instructions Recorded Confirmed Type Gabapentin 400 mg PO TID 06/24/14 06/27/17 History Hydrocodone/Acetaminophen 1 tab PO Q8H PRN 06/24/14 06/27/17 History [Hydrocodone/Acetaminophen 10-325] Budesonide-Formot 160-4.5 Mcg 2 puff INHALATION RT-BID #1 inhaler 06/29/1406/27 Rx [Symbicort 160-4.5 Mcg Inhaler] Atorvastatin [Lipitor] 80 mg PO HS #30 tab 07/18/14 06/27/17 Rx Nitroglycerin Sl Tabs [Nitrostat] 0.4 mg SUBLINGUAL Q5M PRN #25 tab 07/18/14 Rx Cyanocobalamin [Vitamin B-12] 500 mcg PO DAILY 07/21/14 06/27/17 History Multivitamins, Thera [Multivitamin 1 tab PO DAILY 07/21/14 06/27/17 History (formulary)] Primidone [Mysoline] 50 mg PO TID 10/29/14 06/27/17 History Aspirin 81 mg PO DAILY 09/17/15 06/27/17 History Tiotropium [place] [Spiriva] 18 mcg INHALATION RT-DAILY 09/17/15 06/27/17 History Vitamin E 1,000 unit PO DAILY 09/17/15 06/27/17 History Latanoprost Ophth [Xalatan 0.005%] 1 drops LEFT EYE HS 08/05/16 06/27/17 History Clopidogrel [Plavix] 75 mg PO DAILY #30 tab 08/06/16 06/27/17 Rx Albuterol Nebulized [Ventolin 2.5 mg INHALATION RT-Q4H PRN 12/04/16 06/27/17 History Nebulized] Calcium Carbonate [Calcium] 600 mg PO DAILY 12/04/16 06/27/17 History Magnesium Gluconate [Magonate] 1,000 mg PO DAILY 12/04/16 06/27/17 History Famotidine [Pepcid] 20 mg PO DAILY PRN 02/11/17 06/27/17 History Furosemide [Lasix] 40 mg PO DAILY 02/11/17 06/27/17 History Metoprolol Succinate (ER) [Toprol 50 mg PO DAILY 02/11/17 06/27/17 History XL] Spironolactone [Aldactone] 25 mg PO DAILY 02/11/17 06/27/17 History buPROPion XL [Wellbutrin XL] 150 mg PO DAILY 02/11/17 06/27/17 History PARoxetine HCL [Paxil] 30 mg PO BID 03/26/17 06/27/17 History Amitriptyline HCl [Elavil] 25 mg PO HS 05/11/17 06/27/17 History Propranolol [Inderal] 40 mg PO BID 06/27/17 06/27/17 History Allergies Allergy/AdvReac Type Severity Reaction Status Date / Time cipro eye drop AdvReac eye and Uncoded 06/27/17 07:35 surrounding tissue swelling Physical Exam Vitals: Vital Signs Temp Pulse Pulse Pulse Resp BP BP 06/28/17 08:49 97 F L 65 20 129/62 06/28/17 07:55 64 06/28/17 07:42 65 06/28/17 04:00 97.8 F 60 60 16 91/52 06/27/17 23:43 97 F L 64 16 93/58 06/27/17 20:20 68 06/27/17 20:00 98 F 68 18 109/60 06/27/17 17:55 97.6 F 65 20 101/60 06/27/17 16:55 62 16 104/54 06/27/17 15:27 65 06/27/17 15:18 65 06/27/17 14:24 65 16 107/53 06/27/17 12:56 06/27/17 11:24 60 06/27/17 11:14 60 Pulse Ox 06/28/17 08:49 97 06/28/17 07:55 06/28/17 07:42 06/28/17 04:00 93 L 06/27/17 23:43 97 06/27/17 20:20 95 06/27/17 20:00 98 06/27/17 17:55 97 06/27/17 16:55 95 06/27/17 15:27 06/27/17 15:18 06/27/17 14:24 100 06/27/17 12:56 95 06/27/17 11:24 06/27/17 11:14 Intake and Output 06/27/17 06/28/17 06/28/17 22:59 06:59 14:59 Intake Total 300 80 480 Output Total 800 Balance 300 80 -320 Intake: IV 160 80 Sodium Chloride 0.9% 1, 160 80 000 ml @ 999 mls/hr IV . Q1H1M ONE Rx#:[id number] Oral 140 480 Output: Urine 800 Other: Voiding Method Diaper Diaper Incontinent Incontinent # Voids 1 2 # Bowel Movements 1 Weight 50 kg 50 kg Patient Weight 06/29/17 06:59 Weight 50 kg General appearance: The patient is alert, oriented, in no acute distress. HET: Head is normocephalic with slight swelling ecchymosis right superior orbit. Pupils are equal and reactive. Oropharynx is clear without lesions. Neck: Supple without lymphadenopathy. Trachea midline. Heart: S1 S2. Regular rate and rhythm. Lungs: No crackles or wheezes are heard. Abdomen: Soft, nontender, nondistended with bowel sounds. No peritoneal signs. No palpable organomegaly or masses. Extremities: Left upper extremity cast. Neurological: No focal deficits. Strength and sensation are grossly intact. Results CBC & Chem 7: 06/28/17 05:39 06/28/17 05:39 Labs: Abnormal Lab Results - Last 24 Hours (Table) 06/27/17 06/27/17 06/28/17 Range/Units 10:36 11:00 05:39 WBC (3.8-10.6) k/uL Hgb (11.4-16.0) gm/dL MCH (25.0-35.0) pg MCHC (31.0-37.0) g/dL RDW (11.5-15.5) % Plt Count (150-450) k/uL Neutrophils # (1.3-7.7) k/uL Monocytes # (0-1.0) k/uL ABG HCO3 26 H (21-25) mmol/L ABG Total CO2 28 H (19-24) mmol/L Sodium (137-145) mmol/L Chloride (98-107) mmol/L Carbon Dioxide (22-30) mmol/L BUN (7-17) mg/dL Glucose (74-99) mg/dL Calcium (8.4-10.2) mg/dL AST (14-36) U/L ALT (9-52) U/L Alkaline Phosphatase (38-126) U/L Ammonia 31 H (<30) umol/L Total Protein (6.3-8.2) g/dL Albumin (3.5-5.0) g/dL Amylase (30-110) U/L Urine Appearance Cloudy H (Clear) Urine Protein Trace H (Negative) Urine Ketones Trace H (Negative) Ur Leukocyte Esterase Trace H (Negative) Urine Bacteria Rare H (None) /hpf Hyaline Casts 4 H (0-2) /lpf Urine Mucus Rare H (None) /hpf 06/28/17 06/28/17 Range/Units 05:39 05:39 WBC 12.9 H (3.8-10.6) k/uL Hgb 10.2 L (11.4-16.0) gm/dL MCH 23.4 L (25.0-35.0) pg MCHC 29.1 L (31.0-37.0) g/dL RDW 18.2 H (11.5-15.5) % Plt Count 548 H (150-450) k/uL Neutrophils # 9.0 H (1.3-7.7) k/uL Monocytes # 1.2 H (0-1.0) k/uL ABG HCO3 (21-25) mmol/L ABG Total CO2 (19-24) mmol/L Sodium 133 L (137-145) mmol/L Chloride 93 L (98-107) mmol/L Carbon Dioxide 33 H (22-30) mmol/L BUN 32 H (7-17) mg/dL Glucose 104 H (74-99) mg/dL Calcium 8.3 L (8.4-10.2) mg/dL AST 402 H (14-36) U/L ALT 601 H (9-52) U/L Alkaline Phosphatase 128 H (38-126) U/L Ammonia (<30) umol/L Total Protein 6.1 L (6.3-8.2) g/dL Albumin 3.2 L (3.5-5.0) g/dL Amylase 227 H (30-110) U/L Urine Appearance (Clear) Urine Protein (Negative) Urine Ketones (Negative) Ur Leukocyte Esterase (Negative) Urine Bacteria (None) /hpf Hyaline Casts (0-2) /lpf Urine Mucus (None) /hpf Microbiology - Last 24 Hours (Table) 06/27/17 10:36 Urine Culture - Preliminary Urine,Voided CT scan - abdomen: report reviewed (Dr. Shaw) US - abdomen: report reviewed (Dr. Shaw) Assessment and Plan (1) Liver lesion Narrative/Plan: 61-year-old female with an extensive cardiac history presents with syncopal episode shortness of breath mental status changes with elevated liver enzymes. Abdominal imaging reported 9 mm right hepatic dome too small to characterize possible cyst Current Visit: Yes Status: Acute Code(s): K76.9 - LIVER DISEASE, UNSPECIFIED SNOMED Code(s): 637249733 (2) Elevated liver enzymes Narrative/Plan: Multifactorial possible ischemic hepatitis with reported syncopal episode prior to admission passive venous congestion with history of diastolic heart failure and elevated pro-BMP. Underlying chronic liver disease viral hepatitis cannot be entirely excluded. History of transient transaminitis in the past. Current Visit: Yes Status: Acute Code(s): R74.8 - ABNORMAL LEVELS OF OTHER SERUM ENZYMES SNOMED Code(s): 893539078 Plan: 1. Hepatitis screen. 2. Serologic workup for chronic liver disease. 3. In regards to 9 mm liver lesion too small to characterize repeat CT imaging 6 months. 4. Will follow with you. Thank you for this kind referral and the opportunity to participate in the care of your patient. This consultation was discussed with Dr. Shaw. The impression and plan of care have been directed as dictated.
--- NOTE | 2017-06-28 13:27 | P.CNPUL ---
History of Present Illness Consult date: 06/28/17 Requesting physician: Duarte Figueredo Jr Reason for consult: dyspnea Chief complaint: Syncope History of present illness: This is a very pleasant 61-year-old female patient who follows with Dr. Figueredo as her primary care physician. She has a history of right breast cancer with lumpectomy, radiation, hypertension, coronary disease with previous stenting, coronary artery bypass grafting 4 in November 2016, congestive heart failure, myocardial infarction, hyperlipidemia, peripheral occlusive vascular disease, ischemic cardiomyopathy, secondary pulmonary hypertension, osteoarthritis. She also has a history of severe oxygen dependent chronic obstructive pulmonary disease and follows with Dr. Cardoso in our office for the same. Her FEV1 value is 34% of predicted. She was recently here for a COPD exacerbation secondary to a multifocal pneumonia. She also has issues with tremors and is on Neurontin. She was recently started on Neurontin 400 mg 3 times a day on top of her Mysoline 50 mg 3 times a day. She sustained significant dizziness and passed out hitting her head. She has ecchymosis and swelling over the right orbit. CT of the brain revealed no acute abnormalities. She had ongoing issues with shortness of breath and we are consulted for the same. Currently she is seen on the selective care unit. She is awake and alert in no acute distress. She does utilize the BiPAP throughout the evening. Early maintaining good O2 saturations in the high 90s on 3 L/m per nasal cannula. She 's afebrile. Hemodynamically stable. Chest x-ray reveals some trace pleural effusions with bibasilar lung opacities most likely representing atelectasis. 12.9. Hemoglobin 10.2. Her blood gases performed yesterday on 20% FiO2 revealed a pO2 of 86, pCO2 43, pH 7.41. Bicarb 33 creatinine 0.80. Her enzymes have been elevated currently AST 402, ALT 601, alk phos 128. Troponins are negative 3. ProBNP 14,400. Review of Systems 14 point review of system was conducted. All negative other than as mentioned in the HPI. Past Medical History Past Medical History: Coronary Artery Disease (CAD), Cancer, Heart Failure, COPD , Eye Disorder, GERD/Reflux, Hyperlipidemia, Myocardial Infarction (SD), Respiratory Disorder, Vascular Disorder Additional Past Medical History / Comment(s): chronic hypoxic respiratory failure, CHF with an ejection fraction of less than 20% with significant degree of secondary pulmonary hypertension, ischemic cardiac myopathy, O2 1.5L/NC at HS , celiac disease,R breast cancer, osteoporosis, PAD, chronic pain L wrist ( previous injury with sx), L eye possible glaucoma, sinus problems. Last Myocardial Infarction Date:: 2014 History of Any Multi-Drug Resistant Organisms: None Reported Past Surgical History: Breast Surgery, Section, Coronary Bypass/CABG, Heart Catheterization With Stent, Orthopedic Surgery Additional Past Surgical History / Comment(s): 11/2016 CABG 4 vessel with mitral/ tricuspid surgery at [facility]-also had thoracentesis, R breast lumpectomy, L WRIST SX X3, D&C, 11-01-14 AORTAGRAM W/RUNOFF- CECILIO ILIAC STENTS, colonoscopy. Past Anesthesia/Blood Transfusion Reactions: No Reported Reaction Additional Past Anesthesia/Blood Transfusion Reaction / Comment(s): no hx blood transfusion Date of Last Stent Placement:: 2014 Past Psychological History: Anxiety, Depression Smoking Status: Current every day smoker Past Alcohol Use History: None Reported Past Drug Use History: None Reported - Past Family History Mother Family Medical History: Congestive Heart Failure (CHF), Diabetes Mellitus Additional Family Medical History / Comment(s): HEART ISSSUES. Mother of CHF at the age of 69yrs. Father Family Medical History: Blood Disorder Additional Family Medical History / Comment(s): HEMACHROMATOSIS. Father at the age of 69yrs from cirrhosis. He was not a drinker. Medications and Allergies Home Medications Medication Instructions Recorded Confirmed Type Gabapentin 400 mg PO TID 06/24/14 06/27/17 History Hydrocodone/Acetaminophen 1 tab PO Q8H PRN 06/24/14 06/27/17 History [Hydrocodone/Acetaminophen 10-325] Budesonide-Formot 160-4.5 Mcg 2 puff INHALATION RT-BID #1 inhaler 06/29/1406/27 Rx [Symbicort 160-4.5 Mcg Inhaler] Atorvastatin [Lipitor] 80 mg PO HS #30 tab 07/18/14 06/27/17 Rx Nitroglycerin Sl Tabs [Nitrostat] 0.4 mg SUBLINGUAL Q5M PRN #25 tab 07/18/14 Rx Cyanocobalamin [Vitamin B-12] 500 mcg PO DAILY 07/21/14 06/27/17 History Multivitamins, Thera [Multivitamin 1 tab PO DAILY 07/21/14 06/27/17 History (formulary)] Primidone [Mysoline] 50 mg PO TID 10/29/14 06/27/17 History Aspirin 81 mg PO DAILY 09/17/15 06/27/17 History Tiotropium [place] [Spiriva] 18 mcg INHALATION RT-DAILY 09/17/15 06/27/17 History Vitamin E 1,000 unit PO DAILY 09/17/15 06/27/17 History Latanoprost Ophth [Xalatan 0.005%] 1 drops LEFT EYE HS 08/05/16 06/27/17 History Clopidogrel [Plavix] 75 mg PO DAILY #30 tab 08/06/16 06/27/17 Rx Albuterol Nebulized [Ventolin 2.5 mg INHALATION RT-Q4H PRN 12/04/16 06/27/17 History Nebulized] Calcium Carbonate [Calcium] 600 mg PO DAILY 12/04/16 06/27/17 History Magnesium Gluconate [Magonate] 1,000 mg PO DAILY 12/04/16 06/27/17 History Famotidine [Pepcid] 20 mg PO DAILY PRN 02/11/17 06/27/17 History Furosemide [Lasix] 40 mg PO DAILY 02/11/17 06/27/17 History Metoprolol Succinate (ER) [Toprol 50 mg PO DAILY 02/11/17 06/27/17 History XL] Spironolactone [Aldactone] 25 mg PO DAILY 02/11/17 06/27/17 History buPROPion XL [Wellbutrin XL] 150 mg PO DAILY 02/11/17 06/27/17 History PARoxetine HCL [Paxil] 30 mg PO BID 03/26/17 06/27/17 History Amitriptyline HCl [Elavil] 25 mg PO HS 05/11/17 06/27/17 History Propranolol [Inderal] 40 mg PO BID 06/27/17 06/27/17 History Allergies Allergy/AdvReac Type Severity Reaction Status Date / Time cipro eye drop AdvReac eye and Uncoded 06/27/17 07:35 surrounding tissue swelling Physical Exam Vitals: Vital Signs Temp Pulse Pulse Pulse Resp BP BP 06/28/17 12:00 97 F L 73 18 131/83 06/28/17 11:45 60 06/28/17 08:49 97 F L 65 20 129/62 06/28/17 07:55 64 06/28/17 07:42 65 06/28/17 04:00 97.8 F 60 60 16 91/52 06/27/17 23:43 97 F L 64 16 93/58 06/27/17 20:20 68 06/27/17 20:00 98 F 68 18 109/60 06/27/17 17:55 97.6 F 65 20 101/60 06/27/17 16:55 62 16 104/54 06/27/17 15:27 65 06/27/17 15:18 65 06/27/17 14:24 65 16 107/53 Pulse Ox 06/28/17 12:00 97 06/28/17 11:45 06/28/17 08:49 97 06/28/17 07:55 06/28/17 07:42 06/28/17 04:00 93 L 06/27/17 23:43 97 06/27/17 20:20 95 06/27/17 20:00 98 06/27/17 17:55 97 06/27/17 16:55 95 06/27/17 15:27 06/27/17 15:18 06/27/17 14:24 100 Intake and Output 06/27/17 06/28/17 06/28/17 22:59 06:59 14:59 Intake Total 300 80 480 Output Total 800 Balance 300 80 -320 Intake: IV 160 80 Sodium Chloride 0.9% 1, 160 80 000 ml @ 999 mls/hr IV . Q1H1M ONE Rx#:[id number] Oral 140 480 Output: Urine 800 Other: Voiding Method Diaper Diaper Incontinent Incontinent # Voids 1 2 # Bowel Movements 1 Weight 50 kg 50 kg Patient Weight 06/29/17 06:59 Weight 50 kg GENERAL EXAM: Alert, active, comfortable in no apparent distress. HEAD: Normocephalic. EYES: Normal reaction of pupils, equal size. Ecchymosis over the right orbit. NOSE: Clear with pink turbinates. THROAT: No erythema or exudates. NECK: No masses, no JVD. CHEST: No chest wall deformity. LUNGS: Equal air entry with echoes in the bilateral posterior bases. CVS: S1 and S2 normal with no audible murmur, regular rhythm. ABDOMEN: No hepatosplenomegaly, normal bowel sounds, no guarding or rigidity. SPINE: No scoliosis or deformity SKIN: No rashes CENTRAL NERVOUS SYSTEM: No focal deficits, tone is normal in all 4 extremities. EXTREMITIES: There is no peripheral edema. No clubbing, no cyanosis. Peripheral pulses are intact. Results - Laboratory Findings CBC and BMP: 06/28/17 05:39 06/28/17 05:39 ABG ABG pH 7.41 (7.35-7.45) 06/27/17 11:00 ABG pCO2 43 mmHg (35-45) 06/27/17 11:00 ABG pO2 86 mmHg (83-108) 06/27/17 11:00 ABG O2 Saturation 96.5 % (94-97) 06/27/17 11:00 PT/INR, D-dimer PT 11.2 sec (9.0-12.0) 06/27/17 03:10 INR 1.2 (<1.2) H 06/27/17 03:10 D-Dimer 0.74 mg/L FEU (<0.60) H 06/27/17 03:10 Abnormal lab findings: Abnormal Labs 06/27/17 06/27/17 06/27/17 03:03 03:10 03:10 WBC 19.4 H Hgb MCH 24.1 L MCHC 29.8 L RDW 16.2 H Plt Count 718 H Neutrophils # 15.6 H Monocytes # 1.5 H INR D-Dimer ABG HCO3 ABG Total CO2 Sodium Chloride Carbon Dioxide BUN Creatinine Glucose POC Glucose (mg/dL) 120 H Calcium AST ALT Alkaline Phosphatase Ammonia Total Creatine Kinase 420 H CK-MB (CK-2) 13.2 H* Total Protein Albumin Amylase Urine Appearance Urine Protein Urine Ketones Ur Leukocyte Esterase Urine Bacteria Hyaline Casts Urine Mucus 06/27/17 06/27/17 06/27/17 03:10 03:10 10:36 WBC Hgb MCH MCHC RDW Plt Count Neutrophils # Monocytes # INR 1.2 H D-Dimer 0.74 H ABG HCO3 ABG Total CO2 Sodium 127 L Chloride 84 L Carbon Dioxide BUN 53 H Creatinine 1.40 H Glucose 110 H POC Glucose (mg/dL) Calcium AST 1186 H ALT 1073 H Alkaline Phosphatase 169 H Ammonia Total Creatine Kinase CK-MB (CK-2) Total Protein Albumin Amylase Urine Appearance Cloudy H Urine Protein Trace H Urine Ketones Trace H Ur Leukocyte Esterase Trace H Urine Bacteria Rare H Hyaline Casts 4 H Urine Mucus Rare H 06/27/17 06/28/17 06/28/17 11:00 05:39 05:39 WBC 12.9 H Hgb 10.2 L MCH 23.4 L MCHC 29.1 L RDW 18.2 H Plt Count 548 H Neutrophils # 9.0 H Monocytes # 1.2 H INR D-Dimer ABG HCO3 26 H ABG Total CO2 28 H Sodium Chloride Carbon Dioxide BUN Creatinine Glucose POC Glucose (mg/dL) Calcium AST ALT Alkaline Phosphatase Ammonia 31 H Total Creatine Kinase CK-MB (CK-2) Total Protein Albumin Amylase Urine Appearance Urine Protein Urine Ketones Ur Leukocyte Esterase Urine Bacteria Hyaline Casts Urine Mucus 06/28/17 05:39 WBC Hgb MCH MCHC RDW Plt Count Neutrophils # Monocytes # INR D-Dimer ABG HCO3 ABG Total CO2 Sodium 133 L Chloride 93 L Carbon Dioxide 33 H BUN 32 H Creatinine Glucose 104 H POC Glucose (mg/dL) Calcium 8.3 L AST 402 H ALT 601 H Alkaline Phosphatase 128 H Ammonia Total Creatine Kinase CK-MB (CK-2) Total Protein 6.1 L Albumin 3.2 L Amylase 227 H Urine Appearance Urine Protein Urine Ketones Ur Leukocyte Esterase Urine Bacteria Hyaline Casts Urine Mucus - Diagnostic Findings Chest x-ray: image reviewed Assessment and Plan Assessment: Impression: #1 Altered mental status and couple episode of unclear etiology. Most likely secondary to medications for her tremors. #2 Acute exacerbation of chronic diastolic congestive heart failure #3 Exacerbation of chronic obstructive pulmonary disease. #4 Acute hypoxic respiratory failure secondary to above. #5 pulmonary hypertension. #6 Chronic and ongoing tobacco dependence. #8 Coronary artery disease with previous stenting and when he artery bypass grafting. #9 Ischemic cardiomyopathy. #10 History of right breast cancer with previous lumpectomy and radiation. #11 Peripheral vascular disease. #12 Osteoarthritis #13 Glaucoma. #14 Hypertension. Plan: The patient was seen and evaluated by Dr. Jiménez. Her chest x-ray and labs were reviewed. We'll continue with her current medications. She is being followed by neurology, cardiology, GI services regarding the elevated LFTs. She is stable from the pulmonary standpoint for now. We'll continue with her current medications. Utilized BiPAP as needed throughout the evenings and during the day while napping. We'll increase her activity as tolerated. We'll continue to follow and make further recommendations based on her clinical status. I, the cosigning physician, performed a history & physical examination of the patient. Lungs sounds echo from the bilateral posterior bases. Maintaining good O2 saturations in the 90s on 3 L/m per nasal cannula I discussed the assessment and plan of care with my nurse practitioner, Katarina Levin. I attest to the above note as dictated by her. Time with Patient: Greater than 30
--- NOTE | 2017-06-28 14:44 | P.HPIM ---
History of Present Illness H&P Date: 06/28/17 Chief Complaint: mental status changes 61-year-old female who presented to the emergency room on 06/27/2017 secondary to shortness of breath. Her family also noted she was having mental status changes and called EMS to the hospital for further evaluation. The patient states that she saw her neurologist recently and her medication for her tremors was adjusted. She states her dose of her Mysoline was increased. Subsequently, she states she started having dizziness and passed out at home while on the computer hitting her head on the computer screen. She does have an abrasion above her right eyebrow. The patient is a history of coronary artery disease, congestive heart failure, pulmonary hypertension, COPD, hyperlipidemia, gastroesophageal reflux disease, CABG 4 vessels in November 2016, anxiety, depression, home O2 at 2 L at night, and a recent fall with subsequent left wrist fracture. She is a current everyday cigarette smoker and smokes 2-4 cigarettes a day. She was recently hospitalized from 06/09/2017 until 06/11/2017 for COPD exacerbation, bilateral pneumonia, and CHF exacerbation. In the emergency room, a EKG was completed revealing sinus rhythm with nonspecific ST-T wave changes. Chest x-ray was completed showing possible trace pleural effusions with bibasilar lung opacities representing atelectasis and/or infiltrates. CT of the brain was completed which was negative for an acute process. CT of the abdomen and pelvis was completed revealing atelectasis and/or scarring at the lung bases and low density liver lesion. It was negative for bowel obstruction. Ultrasound of the abdomen was completed which revealed a mildly hydropic gallbladder with sludge. It did not reveal findings of the 9mm liver lesion that was seen on abdominal CT. Laboratory studies reveal white count of 19.4, hemoglobin 11.5, platelet count 718, d- dimer 0.74, sodium 127, potassium 4.6, BUN 53, creatinine 1.40, lactic acid 1.0 , AST 1186, AST 1073, alkaline phosphatase 169, CK-MB 13.2, troponin 0.018. BNP was 14,400. Urinalysis revealed cloudy urine with trace protein, trace ketones, trace leukocyte esterase, rare bacteria, rare mucus, and 4 hyaline casts. The patient was admitted to the hospital under the care of Dr. Figueredo. Consultations were placed to neurology, nephrology, pulmonology, cardiology and gastroenterology. Review of Systems GENERAL: Patient denies fever. Denies chills. EYES: Denies blurred vision. Denies vision changes. Denies eye pain. EARS, NOSE, MOUTH, & THROAT: Denies headache. Denies sore throat. Denies ear pain. RESPIRATORY: Positive for shortness of breath. Denies cough. Denies shortness of breath. Denies sputum production. Denies hemoptysis. CARDIOVASCULAR: Denies chest pain or pressure. Denies palpitations. Denies arrhythmias. GASTROINTESTINAL: Denies abdominal pain. Denies diarrhea. Denies constipation. Denies nausea. Denies vomiting. Denies heartburn. Denies blood in the stool. GENITOURINARY: Denies urinary frequency. Denies burning. Denies dysuria. Denies cloudy urine. Denies blood in the urine. MUSCULOSKELETAL: Denies myalgias. Denies joint swelling. Denies decreased range of motion beyond patients baseline. NEUROLOGY: Positive for tremors. Positive for one episode of passing out. INTEGUMENTARY: Positive for abrasion above right eyebrow. Denies pruitis. Denies rash. PSYCHIATRIC: Negative for anxiety. Denies suicidal or homicial ideations. ENDOCRINE: Denies weight change. Denies polydipsia. Denies polyuria. HEMATOLOGIC: Denies bleeding disorders. Past Medical History Past Medical History: Coronary Artery Disease (CAD), Cancer, Heart Failure, COPD , Eye Disorder, GERD/Reflux, Hyperlipidemia, Myocardial Infarction ([place]), Respiratory Disorder, Vascular Disorder Additional Past Medical History / Comment(s): chronic hypoxic respiratory failure, CHF with an ejection fraction of less than 20% with significant degree of secondary pulmonary hypertension, ischemic cardiac myopathy, O2 1.5L/NC at , celiac disease,R breast cancer, osteoporosis, PAD, chronic pain L wrist ( previous injury with sx), L eye possible glaucoma, sinus problems. Last Myocardial Infarction Date:: 2014 History of Any Multi-Drug Resistant Organisms: None Reported Past Surgical History: Breast Surgery, Section, Coronary Bypass/CABG, Heart Catheterization With Stent, Orthopedic Surgery Additional Past Surgical History / Comment(s): 11/2016 CABG 4 vessel with mitral/ tricuspid surgery at [facility]-also had thoracentesis, R breast lumpectomy, L WRIST SX X3, D&C, 11-01-14 AORTAGRAM W/RUNOFF- CECILIO ILIAC STENTS, colonoscopy. Past Anesthesia/Blood Transfusion Reactions: No Reported Reaction Additional Past Anesthesia/Blood Transfusion Reaction / Comment(s): no hx blood transfusion Date of Last Stent Placement:: 2014 Past Psychological History: Anxiety, Depression Smoking Status: Current every day smoker Past Alcohol Use History: None Reported Past Drug Use History: None Reported - Past Family History Mother Family Medical History: Congestive Heart Failure (CHF), Diabetes Mellitus Additional Family Medical History / Comment(s): HEART ISSSUES. Mother of CHF at the age of 69yrs. Father Family Medical History: Blood Disorder Additional Family Medical History / Comment(s): HEMACHROMATOSIS. Father at the age of 69yrs from cirrhosis. He was not a drinker. Medications and Allergies Home Medications Medication Instructions Recorded Confirmed Type Gabapentin 400 mg PO TID 06/24/14 06/27/17 History Hydrocodone/Acetaminophen 1 tab PO Q8H PRN 06/24/14 06/27/17 History [Hydrocodone/Acetaminophen 10-325] Budesonide-Formot 160-4.5 Mcg 2 puff INHALATION RT-BID #1 inhaler 06/29/1406/27 Rx [Symbicort 160-4.5 Mcg Inhaler] Atorvastatin [Lipitor] 80 mg PO HS #30 tab 07/18/14 06/27/17 Rx Nitroglycerin Sl Tabs [Nitrostat] 0.4 mg SUBLINGUAL Q5M PRN #25 tab 07/18/14 Rx Cyanocobalamin [Vitamin B-12] 500 mcg PO DAILY 07/21/14 06/27/17 History Multivitamins, Thera [Multivitamin 1 tab PO DAILY 07/21/14 06/27/17 History (formulary)] Primidone [Mysoline] 50 mg PO TID 10/29/14 06/27/17 History Aspirin 81 mg PO DAILY 09/17/15 06/27/17 History Tiotropium Ava [Spiriva] 18 mcg INHALATION RT-DAILY 09/17/15 06/27/17 History Vitamin E 1,000 unit PO DAILY 09/17/15 06/27/17 History Latanoprost Ophth [Xalatan 0.005%] 1 drops LEFT EYE HS 08/05/16 06/27/17 History Clopidogrel [Plavix] 75 mg PO DAILY #30 tab 08/06/16 06/27/17 Rx Albuterol Nebulized [Ventolin 2.5 mg INHALATION RT-Q4H PRN 12/04/16 06/27/17 History Nebulized] Calcium Carbonate [Calcium] 600 mg PO DAILY 12/04/16 06/27/17 History Magnesium Gluconate [Magonate] 1,000 mg PO DAILY 12/04/16 06/27/17 History Famotidine [Pepcid] 20 mg PO DAILY PRN 02/11/17 06/27/17 History Furosemide [Lasix] 40 mg PO DAILY 02/11/17 06/27/17 History Metoprolol Succinate (ER) [Toprol 50 mg PO DAILY 02/11/17 06/27/17 History XL] Spironolactone [Aldactone] 25 mg PO DAILY 02/11/17 06/27/17 History buPROPion XL [Wellbutrin XL] 150 mg PO DAILY 02/11/17 06/27/17 History PARoxetine HCL [Paxil] 30 mg PO BID 03/26/17 06/27/17 History Amitriptyline HCl [Elavil] 25 mg PO HS 05/11/17 06/27/17 History Propranolol [Inderal] 40 mg PO BID 06/27/17 06/27/17 History Allergies Allergy/AdvReac Type Severity Reaction Status Date / Time cipro eye drop AdvReac eye and Uncoded 06/27/17 07:35 surrounding tissue swelling Physical Exam Vitals: Vital Signs Temp Pulse Pulse Pulse Resp BP BP 06/28/17 12:00 97 F L 73 18 131/83 06/28/17 11:45 60 06/28/17 08:49 97 F L 65 18 129/62 06/28/17 07:55 64 06/28/17 07:42 65 06/28/17 04:00 97.8 F 60 60 16 91/52 06/27/17 23:43 97 F L 64 16 93/58 06/27/17 20:20 68 06/27/17 20:00 98 F 68 18 109/60 06/27/17 17:55 97.6 F 65 20 101/60 06/27/17 16:55 62 16 104/54 06/27/17 15:27 65 06/27/17 15:18 65 06/27/17 14:24 65 16 107/53 Pulse Ox 06/28/17 12:00 97 06/28/17 11:45 06/28/17 08:49 97 06/28/17 07:55 06/28/17 07:42 06/28/17 04:00 93 L 06/27/17 23:43 97 06/27/17 20:20 95 06/27/17 20:00 98 06/27/17 17:55 97 06/27/17 16:55 95 06/27/17 15:27 06/27/17 15:18 06/27/17 14:24 100 Intake and Output 06/27/17 06/28/17 06/28/17 22:59 06:59 14:59 Intake Total 300 80 480 Output Total 800 Balance 300 80 -320 Intake: IV 160 80 Sodium Chloride 0.9% 1, 160 80 000 ml @ 999 mls/hr IV . Q1H1M ONE Rx#:[id number] Oral 140 480 Output: Urine 800 Other: Voiding Method Diaper Diaper Bedpan Incontinent Incontinent Diaper # Voids 1 2 # Bowel Movements 1 Weight 50 kg 50 kg Patient Weight 06/29/17 06:59 Weight 50 kg GENERAL: This is a 61-year-old female in no apparent distress at the time of examination. Pleasant and cooperative. HEENT: Abrasion noted over right eyebrow. Head is atraumatic, normocephalic. Pupils are equal, round, and reactive to light. Sclerae anicteric. Conjunctivae are clear. Mucus membranes of the mouth are moist. Neck is supple. RESPIRATORY: Decreased air exchange throughout with scattered rhonchi. No use of accessory muscles. Patient maintaining oxygen saturation greater than 92%. No chest wall tenderness is noted on palpation or with deep breathing. CARDIOVASCULAR: Regular rate and rhythm. S1 and S2 noted. Systolic murmur auscultated. No JVD noted. No S3 or S4 noted. GASTROINTESTINAL: No distention noted. Abdomen soft and round. Normal active bowel sounds auscultated x 4 quadrants. No pain or tenderness noted upon palpation. INTEGUMENTARY: No cyanosis. No jaundice. No rashes noted. No cellulitis noted. EXTREMITIES: 2+ peripheral pulses. No evidence of peripheral edema. No calf tenderness noted. NEUROLOGIC: Cranial nerves II-XII intact. PSYCHIATRIC: Awake, alert, and oriented X 3. Appropriate affect. Intact judgement and insight. Results CBC & Chem 7: 06/28/17 05:39 06/28/17 05:39 Labs: Abnormal Lab Results - Last 24 Hours (Table) 06/28/17 06/28/17 06/28/17 Range/Units 05:39 05:39 05:39 WBC 12.9 H (3.8-10.6) k/uL Hgb 10.2 L (11.4-16.0) gm/dL MCH 23.4 L (25.0-35.0) pg MCHC 29.1 L (31.0-37.0) g/dL RDW 18.2 H (11.5-15.5) % Plt Count 548 H (150-450) k/uL Neutrophils # 9.0 H (1.3-7.7) k/uL Monocytes # 1.2 H (0-1.0) k/uL Sodium 133 L (137-145) mmol/L Chloride 93 L (98-107) mmol/L Carbon Dioxide 33 H (22-30) mmol/L BUN 32 H (7-17) mg/dL Glucose 104 H (74-99) mg/dL Calcium 8.3 L (8.4-10.2) mg/dL AST 402 H (14-36) U/L ALT 601 H (9-52) U/L Alkaline Phosphatase 128 H (38-126) U/L Ammonia 31 H (<30) umol/L Total Protein 6.1 L (6.3-8.2) g/dL Albumin 3.2 L (3.5-5.0) g/dL Amylase 227 H (30-110) U/L Microbiology - Last 24 Hours (Table) 06/27/17 10:36 Urine Culture - Preliminary Urine,Voided Thrombosis Risk Factor Assmnt - Choose All That Apply Any of the Below Risk Factors Present?: Yes Each Factor Represents 1 point: Abnormal pulmonary function (COPD), Serious lung disease incl. pneumonia (< 1month) Other Risk Factors: Yes Each Risk Factor Represents 2 Points: Age 61-74 years Other congenital or acquired thrombophilia - If yes, enter type in comment: No Thrombosis Risk Factor Assessment Total Risk Factor Score: 4 Thrombosis Risk Factor Assessment Level: Moderate Risk Assessment and Plan Plan: ASSESSMENT: Mental status changes with delirium, likely secondary to new medication added to her regimen for tremors, CT of the brain negative Metabolic encephalopathy, improving Suspected pneumonia, present on admission, CXR reveals bibasilar lung opacities Recent hospitalization from 06/09/2017 until 06/11/2017 for COPD exacerbation, bilateral pneumonia, and CHF exacerbation Acute on chronic diastolic congestive heart failure Acute kidney injury, creatinine on admission 1.4, improving Liver lesion measuring 9mm, possible cyst Elevated liver enzymes, possible ischemic hepatitis, chronic liver disease, or viral hepatitis per GI Coronary artery disease with previous stent placement and CABG 4 Acute exacerbation of chronic obstructive pulmonary disease Acute on chronic hypoxic respiratory failure requiring supplemental oxygen Hyponatremia, may be secondary to dehydration, improving Essential hypertension Pulmonary hypertension Hyperlipidemia Anxiety, unspecified Nicotine dependence, patient is a current everyday cigarette smoker PLAN: -Nephrology on consult. Appreciate recommendations and input -Lasix changed to 40 mg oral daily per nephrology -1500 mL fluid restriction -Cardiology on consult. Appreciate recommendations and input -Pulmonology on consult. Appreciate recommendations and input -Continue nasal cannula, patient may use BiPAP PRN -Continue Levaquin -GI on consult. Appreciate recommendations and input -GI recommends repeating CT imaging in 6 months secondary to liver lesion being too small to characterize -Repeat LFTs in AM -Repeat ammonia level tomorrow. Lactulose x1 now. -Neurology on consult. Appreciate recommendations and input. -Await results of EEG -Home meds as appropriate -Monitor labs -GI prophylaxis: Protonix 40 mg by mouth daily -DVT prophylaxis: Heparin 5000 units subcu every 8 hours -Monitor vital signs and address as appropriate -Discharge planning: Patient to return home when stable -Further recommendations pending patient's course Nurse practitioner note has been reviewed by physician. Signing provider agrees with the documented findings, assessment, and plan of care.
--- NOTE | 2017-06-28 15:24 | P.PN ---
Subjective Progress Note Date: 06/28/17 Principal diagnosis: Patient is a pleasant 61-year-old female who is being followed by the neurology service for altered mental status. Patient had bout of significant coughing causing shortness of breath and lightheadedness at home which led to syncopal episode. She did suffer head injury was syncopal episode and does have a bruise above her right eye. Patient reports significant improvement since being admitted. Computed tomography scan of the brain was done on admission which showed no acute intracranial abnormalities. Computed tomography scan of the brain did show generalized atrophy and small vessel ischemic changes. Patient had significantly elevated liver enzymes and admission and elevated BUN and creatinine. Nephrology was consulted and note acknowledged. Patient is currently on antibiotics for pneumonia. Pulmonology' s following. At the time of my evaluation, patient is resting comfortably in bed and appears to be in no acute distress. Objective - Vital Signs Vital signs: Vital Signs Temp 97 F L 06/28/17 12:00 Pulse 73 06/28/17 12:00 Resp 18 06/28/17 12:00 BP 131/83 06/28/17 12:00 Pulse Ox 97 06/28/17 12:00 Intake & Output 06/27/17 06/28/17 06/28/17 18:59 06:59 18:59 Intake Total 140 240 580 Output Total 800 Balance 140 240 -220 Weight 50 kg 50 kg Intake: IV 240 Sodium Chloride 0.9% 1, 240 000 ml @ 999 mls/hr IV . Q1H1M ONE Rx#:[id number] Oral 140 580 Output: Urine 800 Other: Voiding Method Bedpan Diaper Bedpan Incontinent Diaper # Voids 1 2 # Bowel Movements 1 - Exam PHYSICAL EXAM: GENERAL APPEARANCE: Patient is a well-developed, female who appears to be in no acute distress. HEENT: Normocephalic, atraumatic, no facial asymmetry is seen. Neck is supple with no masses felt. CARDIOVASCULAR: Regular rate and rhythm. ABDOMEN: Nontender, nondistended. EXTREMITIES: Show no edema or clubbing. NEUROLOGICAL EXAM: Patient is awake, alert, and oriented 3. Speech and language are normal. Strength is full in all 4 extremities. Sensory exam is normal to light touch in all 4 extremities. No facial asymmetry is seen on cranial nerve testing. Intentional tremors noted in bilateral upper extremities. No seizure-like activity is noted. - Labs CBC & Chem 7: 06/28/17 05:39 06/28/17 05:39 Labs: Abnormal Lab Results - Last 24 Hours (Table) 06/28/17 06/28/17 06/28/17 Range/Units 05:39 05:39 05:39 WBC 12.9 H (3.8-10.6) k/uL Hgb 10.2 L (11.4-16.0) gm/dL MCH 23.4 L (25.0-35.0) pg MCHC 29.1 L (31.0-37.0) g/dL RDW 18.2 H (11.5-15.5) % Plt Count 548 H (150-450) k/uL Neutrophils # 9.0 H (1.3-7.7) k/uL Monocytes # 1.2 H (0-1.0) k/uL Sodium 133 L (137-145) mmol/L Chloride 93 L (98-107) mmol/L Carbon Dioxide 33 H (22-30) mmol/L BUN 32 H (7-17) mg/dL Glucose 104 H (74-99) mg/dL Calcium 8.3 L (8.4-10.2) mg/dL AST 402 H (14-36) U/L ALT 601 H (9-52) U/L Alkaline Phosphatase 128 H (38-126) U/L Ammonia 31 H (<30) umol/L Total Protein 6.1 L (6.3-8.2) g/dL Albumin 3.2 L (3.5-5.0) g/dL Amylase 227 H (30-110) U/L Microbiology - Last 24 Hours (Table) 06/27/17 10:36 Urine Culture - Preliminary Urine,Voided Assessment and Plan Plan: Impression: 1. Altered mental status, improved 2. Multifactorial encephalopathy 3. Hepatic insufficiency 4. Renal insufficiency 5. Pneumonia 6. Benign familial tremor 7. Small vessel ischemic disease Recommendation: Patient's altered mental status is likely due to multifactorial encephalopathy given infectious and metabolic state. She is currently on antibiotics for pneumonia. She has known hepatic disease and renal insufficiency. Nephrology consult noted. EEG was done and results are pending. Continue antibiotic therapy. Continue neurological checks. I will continue to follow with you. Further recommendations to follow.
[2017-06-28] MEDS: HYDROcodone/APAP 10-325MG 1 EACH TAB PO PRN (16:05)
[2017-06-28 16:33] LABS: Protein, Total 5.8 g/dL (6.2-8.2)
[2017-06-28 18:17] LABS: Hepatitis A Antibody IgM Non-Reactive (Non-Reactive)
[2017-06-28 18:18] LABS: Hepatitis B Core IgM Non-Reactive (Non-Reactive)
[2017-06-28] MEDS: LATANOPROST 0.005% OPHTH DROPS 2.5 ML BTL LEFT EYE SCH (19:59)
[2017-06-28] MEDS: AMITRIPTYLINE HCL 25 MG TAB PO SCH ×2 (19:59→20:02)
[2017-06-28] MEDS: ATORVASTATIN 80 MG TAB PO SCH (19:59)
[2017-06-28] MEDS: NITROGLYCERIN OINT 1 INCH/GM PACKET TOPICAL SCH (20:15)
[2017-06-28] MEDS: PROPRANOLOL 40 MG TAB PO SCH (20:15)
[2017-06-29] MEDS: LORazepam 0.5 MG TAB PO PRN (00:53)
[2017-06-29] MEDS: PANTOPRAZOLE 40 MG TABLET PO SCH (06:12)
[2017-06-29 06:16] LABS: Anisocytosis Slight; Basophils # (A) 0.1 k/uL (0-0.2); Basophils % (A) 0 %; Eosinophils # (A) 0.3 k/uL (0-0.7); Eosinophils % (A) 2 %; HCT 33.5 % (34.0-46.0); HGB 9.8 gm/dL (11.4-16.0); Hypochromasia Marked; Lymphocytes # (A) 1.6 k/uL (1.0-4.8); Lymphocytes % (A) 10 %; MCH 23.2 pg (25.0-35.0); MCHC 29.3 g/dL (31.0-37.0); MCV 79.1 fL (80.0-100.0); Mean Platelet Volume 6.6; Microcytosis Slight; Monocytes # (A) 0.8 k/uL (0-1.0); Monocytes % (A) 5 %; Neutrophils # (A) 13.1 k/uL (1.3-7.7); Neutrophils % (A) 80 %; Platelet Count 537 k/uL (150-450); RBC 4.23 m/uL (3.80-5.40); RDW 17.7 % (11.5-15.5); WBC 16.3 k/uL (3.8-10.6)
[2017-06-29 06:37] LABS: ALT 447 U/L (9-52); AST 189 U/L (14-36); Albumin 3.3 g/dL (3.5-5.0); Alkaline Phosphatase 125 U/L (38-126); Anion Gap 7 mmol/L; Blood Urea Nitrogen 15 mg/dL (7-17); Calcium 8.8 mg/dL (8.4-10.2); Carbon Dioxide 33 mmol/L (22-30); Chloride 94 mmol/L (98-107); Glucose 111 mg/dL (74-99); Sodium 134 mmol/L (137-145); Total Bilirubin 0.3 mg/dL (0.2-1.3); Total Protein 6.1 g/dL (6.3-8.2)
[2017-06-29] MEDS: IPRATROPIUM 0.5 MG/2.5 ML NEBU INHALATION SCH ×2 (08:16→11:53)
[2017-06-29] MEDS: SYMBICORT 160-4.5 MCG INHALER INHALATION SCH (08:16)
[2017-06-29] MEDS ORDERED: FUROSEMIDE 40 MG TAB PO SCH (09:00)
[2017-06-29] MEDS: SPIRONOLACTONE 25 MG TAB PO SCH (10:31)
[2017-06-29] MEDS: VITAMIN E (DL,TOCOPHERYL ACET) 400 UNIT CAP PO SCH (10:31)
[2017-06-29] MEDS: MAGNESIUM OXIDE 400 MG TAB PO SCH (10:31)
[2017-06-29] MEDS: CYANOCOBALAMIN 500 MCG TAB PO SCH (10:31)
[2017-06-29] MEDS: METOPROLOL SUCCINATE (ER) 50 MG TAB.ER.24H PO SCH (10:31)
[2017-06-29] MEDS: CALCIUM CARBONATE 500 MG CHEWABLE PO SCH (10:32)
[2017-06-29] MEDS: ASPIRIN 81 MG PO SCH (10:32)
[2017-06-29] MEDS: MULTIVITAMINS, THERA 1 EACH TAB PO SCH (10:32)
[2017-06-29] MEDS: PRIMIDONE 50 MG TAB PO SCH (10:32)
[2017-06-29] MEDS: CLOPIDOGREL 75 MG TAB PO SCH (10:32)
[2017-06-29] MEDS: GABAPENTIN 400 MG CAP PO SCH (10:32)
[2017-06-29] MEDS: HEPARIN SODIUM,PORCINE 5,000 UNIT/ML 1 ML VIAL SQ SCH (10:32)
[2017-06-29] MEDS: PARoxetine 10 MG TAB PO SCH (10:32)
[2017-06-29] MEDS: buPROPion XL 150 MG TAB.ER.24H PO SCH (10:32)
[2017-06-29] MEDS: LEVOFLOXACIN 500MG-D5W PMX 500 MG in DEXTROSE/WATER 1 100ML.BAG IVPB SCH (10:40)
--- NOTE | 2017-06-29 11:34 | P.PN ---
Subjective Patient is seen in follow-up for acute kidney injury and hyponatremia. GFR is back to baseline. Creatinine today 0.58. Sodium level is up to 134. Tremors have mostly resolved. Admits to good urine output. Oral intake is fair. No vomiting or diarrhea. Vital signs are stable. General: The patient appeared well nourished and normally developed. HEENT: Head exam is unremarkable. Neck is without jugular venous distension. LUNGS: Lungs are clear to auscultation and percussion. Breath sounds decreased. HEART: Rate and Rhythm are regular. First and second heart sounds normal. No murmurs, rubs or gallops. ABDOMEN: Abdominal exam reveals normal bowel sounds. Non-tender and non- distended. No evidence of peritonitis. EXTREMITITES: No clubbing, cyanosis, or edema. Objective - Vital Signs Vital signs: Vital Signs Temp 98.9 F 06/29/17 08:00 Pulse 72 06/29/17 08:25 Resp 14 06/29/17 08:00 BP 136/77 06/29/17 08:00 Pulse Ox 95 06/29/17 08:00 Intake & Output 06/28/17 06/29/17 06/29/17 18:59 06:59 18:59 Intake Total 820 Output Total 800 300 Balance 20 -300 Weight 50 kg 49.3 kg Intake: Oral 820 Output: Urine 800 300 Other: Voiding Method Bedpan Bedside Commode Bedside Commode Diaper Diaper Diaper # Voids 1 - Labs CBC & Chem 7: 06/29/17 05:50 06/29/17 05:50 Labs: Abnormal Lab Results - Last 24 Hours (Table) 06/28/17 06/29/17 06/29/17 Range/Units 05:39 05:50 05:50 WBC 16.3 H (3.8-10.6) k/uL Hgb 9.8 L (11.4-16.0) gm/dL Hct 33.5 L (34.0-46.0) % MCV 79.1 L (80.0-100.0) fL MCH 23.2 L (25.0-35.0) pg MCHC 29.3 L (31.0-37.0) g/dL RDW 17.7 H (11.5-15.5) % Plt Count 537 H (150-450) k/uL Neutrophils # 13.1 H (1.3-7.7) k/uL Sodium 134 L (137-145) mmol/L Chloride 94 L (98-107) mmol/L Carbon Dioxide 33 H (22-30) mmol/L Glucose 111 H (74-99) mg/dL AST 189 H (14-36) U/L ALT 447 H (9-52) U/L Ammonia (<30) umol/L Total Protein 6.1 L (6.3-8.2) g/dL Total Protein (PEP) 5.8 L (6.2-8.2) g/dL Albumin 3.3 L (3.5-5.0) g/dL 06/29/17 Range/Units 05:50 WBC (3.8-10.6) k/uL Hgb (11.4-16.0) gm/dL Hct (34.0-46.0) % MCV (80.0-100.0) fL MCH (25.0-35.0) pg MCHC (31.0-37.0) g/dL RDW (11.5-15.5) % Plt Count (150-450) k/uL Neutrophils # (1.3-7.7) k/uL Sodium (137-145) mmol/L Chloride (98-107) mmol/L Carbon Dioxide (22-30) mmol/L Glucose (74-99) mg/dL AST (14-36) U/L ALT (9-52) U/L Ammonia 30 H (<30) umol/L Total Protein (6.3-8.2) g/dL Total Protein (PEP) (6.2-8.2) g/dL Albumin (3.5-5.0) g/dL Microbiology - Last 24 Hours (Table) 06/27/17 10:36 Urine Culture - Final Urine,Voided Assessment and Plan Plan: Assessment: #1. Nonoliguric acute kidney injury mostly prerenal. Resolved. Creatinine was 1.4 on admission and is down to 0.58 today. No evidence of hydronephrosis noted. #2. Hyponatremia. Currently appears euvolemic. Improved. #3. Tremors. Possibly related to propranolol which was recently started. Currently resolved. #4. Diastolic CHF. Appears compensated. #5. Transaminitis possibly related to hepatic congestion. GI following. Levels trending down. Plan: Continue Lasix 40 mg orally once daily. Maintain low salt diet and 1500 mL fluid restriction. Avoid nephrotoxic agents and hypotensive episodes. Repeat electrolytes in the morning.
--- NOTE | 2017-06-29 11:43 | P.PN ---
Subjective Progress Note Date: 06/29/17 Principal diagnosis: Altered mental status This is a very pleasant 61-year-old female patient who follows with Dr. Figueredo as her primary care physician. She has a history of right breast cancer with lumpectomy, radiation, hypertension, coronary disease with previous stenting, coronary artery bypass grafting 4 in November 2016, congestive heart failure, myocardial infarction, hyperlipidemia, peripheral occlusive vascular disease, ischemic cardiomyopathy, secondary pulmonary hypertension, osteoarthritis. She also has a history of severe oxygen dependent chronic obstructive pulmonary disease and follows with Dr. Cardoso in our office for the same. Her FEV1 value is 34% of predicted. She was recently here for a COPD exacerbation secondary to a multifocal pneumonia. She also has issues with tremors and is on Neurontin. She was recently started on Neurontin 400 mg 3 times a day on top of her Mysoline 50 mg 3 times a day. She sustained significant dizziness and passed out hitting her head. She has ecchymosis and swelling over the right orbit. CT of the brain revealed no acute abnormalities. She had ongoing issues with shortness of breath and we are consulted for the same. Currently she is seen on the selective care unit. She is awake and alert in no acute distress. She does utilize the BiPAP throughout the evening. Early maintaining good O2 saturations in the high 90s on 3 L/m per nasal cannula. She 's afebrile. Hemodynamically stable. Chest x-ray reveals some trace pleural effusions with bibasilar lung opacities most likely representing atelectasis. 12.9. Hemoglobin 10.2. Her blood gases performed yesterday on 20% FiO2 revealed a pO2 of 86, pCO2 43, pH 7.41. Bicarb 33 creatinine 0.80. Her enzymes have been elevated currently AST 402, ALT 601, alk phos 128. Troponins are negative 3. ProBNP 14,400. Objective - Vital Signs Vital signs: Vital Signs Temp 98.9 F 06/29/17 08:00 Pulse 72 06/29/17 08:25 Resp 14 06/29/17 08:00 BP 136/77 06/29/17 08:00 Pulse Ox 95 06/29/17 08:00 Intake & Output 06/28/17 06/29/17 06/29/17 18:59 06:59 18:59 Intake Total 820 Output Total 800 300 Balance 20 -300 Weight 50 kg 49.3 kg Intake: Oral 820 Output: Urine 800 300 Other: Voiding Method Bedpan Bedside Commode Bedside Commode Diaper Diaper Diaper # Voids 1 - Exam GENERAL EXAM: Thin, frail, cachectic. Arouses to verbal stimuli, comfortable in no apparent distress. HEAD: Normocephalic. EYES: Normal reaction of pupils, equal size. Ecchymosis over the right orbit. NOSE: Clear with pink turbinates. THROAT: No erythema or exudates. NECK: No masses, no JVD. CHEST: No chest wall deformity. LUNGS: Equal air entry with crackles in the bilateral posterior bases. CVS: S1 and S2 normal with no audible murmur, regular rhythm. ABDOMEN: No hepatosplenomegaly, normal bowel sounds, no guarding or rigidity. SPINE: No scoliosis or deformity SKIN: No rashes CENTRAL NERVOUS SYSTEM: No focal deficits, tone is normal in all 4 extremities. EXTREMITIES: There is no peripheral edema. No clubbing, no cyanosis. Peripheral pulses are intact. - Labs CBC & Chem 7: 06/29/17 05:50 06/29/17 05:50 Labs: Abnormal Lab Results - Last 24 Hours (Table) 06/28/17 06/29/17 06/29/17 Range/Units 05:39 05:50 05:50 WBC 16.3 H (3.8-10.6) k/uL Hgb 9.8 L (11.4-16.0) gm/dL Hct 33.5 L (34.0-46.0) % MCV 79.1 L (80.0-100.0) fL MCH 23.2 L (25.0-35.0) pg MCHC 29.3 L (31.0-37.0) g/dL RDW 17.7 H (11.5-15.5) % Plt Count 537 H (150-450) k/uL Neutrophils # 13.1 H (1.3-7.7) k/uL Sodium 134 L (137-145) mmol/L Chloride 94 L (98-107) mmol/L Carbon Dioxide 33 H (22-30) mmol/L Glucose 111 H (74-99) mg/dL AST 189 H (14-36) U/L ALT 447 H (9-52) U/L Ammonia (<30) umol/L Total Protein 6.1 L (6.3-8.2) g/dL Total Protein (PEP) 5.8 L (6.2-8.2) g/dL Albumin 3.3 L (3.5-5.0) g/dL 06/29/17 Range/Units 05:50 WBC (3.8-10.6) k/uL Hgb (11.4-16.0) gm/dL Hct (34.0-46.0) % MCV (80.0-100.0) fL MCH (25.0-35.0) pg MCHC (31.0-37.0) g/dL RDW (11.5-15.5) % Plt Count (150-450) k/uL Neutrophils # (1.3-7.7) k/uL Sodium (137-145) mmol/L Chloride (98-107) mmol/L Carbon Dioxide (22-30) mmol/L Glucose (74-99) mg/dL AST (14-36) U/L ALT (9-52) U/L Ammonia 30 H (<30) umol/L Total Protein (6.3-8.2) g/dL Total Protein (PEP) (6.2-8.2) g/dL Albumin (3.5-5.0) g/dL Microbiology - Last 24 Hours (Table) 06/27/17 10:36 Urine Culture - Final Urine,Voided Assessment and Plan Assessment: Impression: #1 Altered mental status and syncopal episode of unclear etiology. Most likely secondary to medications for her tremors. #2 Acute exacerbation of chronic diastolic congestive heart failure #3 Acute exacerbation of chronic obstructive pulmonary disease. #4 Acute hypoxic respiratory failure secondary to above. #5 Pulmonary hypertension. #6 Chronic and ongoing tobacco dependence. #8 Coronary artery disease with previous stenting and when he artery bypass grafting. #9 Ischemic cardiomyopathy. #10 History of right breast cancer with previous lumpectomy and radiation. #11 Peripheral vascular disease. #12 Osteoarthritis #13 Glaucoma. #14 Hypertension. #15 elevated liver function testing, improving. Plan: The patient was seen and evaluated by Dr. Jiménez. We'll continue with her current medications. Utilized BiPAP as needed throughout the evenings and during the day while napping. We'll increase her activity as tolerated. We'll continue to follow and make further recommendations based on her clinical status. I, the cosigning physician, performed a history & physical examination of the patient. Lungs sounds echo from the bilateral posterior bases. Maintaining good O2 saturations in the 90s on 2 L/m per nasal cannula I discussed the assessment and plan of care with my nurse practitioner, Katarina Levin. I attest to the above note as dictated by her.
--- NOTE | 2017-06-29 12:49 | P.PN ---
Subjective Progress Note Date: 06/29/17 Principal diagnosis: Elevated liver enzymes Feels well. LFTs improving. Hepatitis screen nonreactive. Ammonia 30. Objective - Vital Signs Vital signs: Vital Signs Temp 98.9 F 06/29/17 08:00 Pulse 73 06/29/17 12:03 Resp 14 06/29/17 08:00 BP 136/77 06/29/17 08:00 Pulse Ox 95 06/29/17 08:00 Intake & Output 06/28/17 06/29/17 06/29/17 18:59 06:59 18:59 Intake Total 820 Output Total 800 300 Balance 20 -300 Weight 50 kg 49.3 kg Intake: Oral 820 Output: Urine 800 300 Other: Voiding Method Bedpan Bedside Commode Bedside Commode Diaper Diaper Diaper # Voids 1 - Exam General appearance: The patient is alert, oriented, in no acute distress. HET: Head is normocephalic with slight swelling ecchymosis right superior orbit. Pupils are equal and reactive. Oropharynx is clear without lesions. Neck: Supple without lymphadenopathy. Trachea midline. Heart: S1 S2. Regular rate and rhythm. Lungs: No crackles or wheezes are heard. Abdomen: Soft, nontender, nondistended with bowel sounds. No peritoneal signs. No palpable organomegaly or masses. Extremities: Left upper extremity cast. Neurological: No focal deficits. Strength and sensation are grossly intact. - Labs CBC & Chem 7: 06/29/17 05:50 06/29/17 05:50 Labs: Abnormal Lab Results - Last 24 Hours (Table) 06/28/17 06/29/17 06/29/17 Range/Units 05:39 05:50 05:50 WBC 16.3 H (3.8-10.6) k/uL Hgb 9.8 L (11.4-16.0) gm/dL Hct 33.5 L (34.0-46.0) % MCV 79.1 L (80.0-100.0) fL MCH 23.2 L (25.0-35.0) pg MCHC 29.3 L (31.0-37.0) g/dL RDW 17.7 H (11.5-15.5) % Plt Count 537 H (150-450) k/uL Neutrophils # 13.1 H (1.3-7.7) k/uL Sodium 134 L (137-145) mmol/L Chloride 94 L (98-107) mmol/L Carbon Dioxide 33 H (22-30) mmol/L Glucose 111 H (74-99) mg/dL AST 189 H (14-36) U/L ALT 447 H (9-52) U/L Ammonia (<30) umol/L Total Protein 6.1 L (6.3-8.2) g/dL Total Protein (PEP) 5.8 L (6.2-8.2) g/dL Albumin 3.3 L (3.5-5.0) g/dL 06/29/17 Range/Units 05:50 WBC (3.8-10.6) k/uL Hgb (11.4-16.0) gm/dL Hct (34.0-46.0) % MCV (80.0-100.0) fL MCH (25.0-35.0) pg MCHC (31.0-37.0) g/dL RDW (11.5-15.5) % Plt Count (150-450) k/uL Neutrophils # (1.3-7.7) k/uL Sodium (137-145) mmol/L Chloride (98-107) mmol/L Carbon Dioxide (22-30) mmol/L Glucose (74-99) mg/dL AST (14-36) U/L ALT (9-52) U/L Ammonia 30 H (<30) umol/L Total Protein (6.3-8.2) g/dL Total Protein (PEP) (6.2-8.2) g/dL Albumin (3.5-5.0) g/dL Microbiology - Last 24 Hours (Table) 06/27/17 10:36 Urine Culture - Final Urine,Voided Assessment and Plan (1) Elevated liver enzymes Narrative/Plan: Improving. Multifactorial possible ischemic hepatitis with reported syncopal episode prior to admission passive venous congestion with history of diastolic heart failure and elevated pro-BMP. Underlying chronic liver disease viral hepatitis cannot be entirely excluded. History of transient transaminitis in the past. Current Visit: Yes Status: Acute Code(s): R74.8 - ABNORMAL LEVELS OF OTHER SERUM ENZYMES SNOMED Code(s): 775397929 (2) Liver lesion Narrative/Plan: 61-year-old female with an extensive cardiac history presents with syncopal episode shortness of breath mental status changes with elevated liver enzymes. Abdominal imaging reported 9 mm right hepatic dome too small to characterize possible cyst Current Visit: Yes Status: Acute Code(s): K76.9 - LIVER DISEASE, UNSPECIFIED SNOMED Code(s): 461042689 Plan: 1. Continue with present medical therapy. Full serologic workup for chronic liver disease pending. No further workup. Return to office in 3 weeks for reevaluation. We'll follow as needed. Assessment and plan a care discussed with Dr. Davila
[2017-06-29 13:05] VITALS: BP 119/64; PULSE 70; RESP 18; TEMP 97
--- NOTE | 2017-06-29 13:58 | P.DS ---
Providers Date of admission: 06/27/17 07:23 Expected date of discharge: 06/29/17 Attending physician: Duarte Figueredo Consults: 06/27/17 09:31 Consult Physician Stat Consulting Provider: Cherelle Sosa Consult Reason/Comments: altered mental status Do you want consulting provider notified?: Yes 06/27/17 09:51 Consult Physician Routine Consulting Provider: Supriya Ordonez Consult Reason/Comments: dyspnea. altered mental status Do you want consulting provider notified?: Yes 06/27/17 17:33 Consult Physician Routine Consulting Provider: Radha Vega Consult Reason/Comments: chf Do you want consulting provider notified?: Yes 06/27/17 17:54 Consult Physician Stat Consulting Provider: Arlene Chawla Consult Reason/Comments: altered mental status Do you want consulting provider notified?: Already Contacted 06/27/17 18:48 Consult Physician Urgent Consulting Provider: Rachel Saldaña Consult Reason/Comments: ELEVATED CREATININE Do you want consulting provider notified?: Yes Primary care physician: [facility] Course: 61-year-old female who presented to the emergency room on 06/27/2017 secondary to shortness of breath. Her family also noted she was having mental status changes and called EMS to the hospital for further evaluation. The patient states that she saw her neurologist recently and her medication for her tremors was adjusted. She states her dose of her Mysoline was increased. Subsequently, she states she started having dizziness and passed out at home while on the computer hitting her head on the computer screen. She does have an abrasion above her right eyebrow. The patient is a history of coronary artery disease, congestive heart failure, pulmonary hypertension, COPD, hyperlipidemia, gastroesophageal reflux disease, CABG 4 vessels in November 2016, anxiety, depression, home O2 at 2 L at night, and a recent fall with subsequent left wrist fracture. She is a current everyday cigarette smoker and smokes 2-4 cigarettes a day. She was recently hospitalized from 06/09/2017 until 06/11/2017 for COPD exacerbation, bilateral pneumonia, and CHF exacerbation. In the emergency room, a EKG was completed revealing sinus rhythm with nonspecific ST-T wave changes. Chest x-ray was completed showing possible trace pleural effusions with bibasilar lung opacities representing atelectasis and/or infiltrates. CT of the brain was completed which was negative for an acute process. CT of the abdomen and pelvis was completed revealing atelectasis and/or scarring at the lung bases and low density liver lesion. It was negative for bowel obstruction. Ultrasound of the abdomen was completed which revealed a mildly hydropic gallbladder with sludge. It did not reveal findings of the 9mm liver lesion that was seen on abdominal CT. Laboratory studies reveal white count of 19.4, hemoglobin 11.5, platelet count 718, d- dimer 0.74, sodium 127, potassium 4.6, BUN 53, creatinine 1.40, lactic acid 1.0 , AST 1186, AST 1073, alkaline phosphatase 169, CK-MB 13.2, troponin 0.018. BNP was 14,400. Urinalysis revealed cloudy urine with trace protein, trace ketones, trace leukocyte esterase, rare bacteria, rare mucus, and 4 hyaline casts. The patient was admitted to the hospital under the care of Dr. Figueredo. Consultations were placed to neurology, nephrology, pulmonology, cardiology and gastroenterology. The patient was evaluated by GI service. The hepatic lesion is too small to characterize. Recommendations were to repeat CAT scan in 6 months. Her liver enzymes continued to trend downward. Per GI, her elevated liver enzymes were multi-factorial possible ischemic hepatitis passive venous congestion and underlying chronic liver disease or viral hepatitis. She is to follow up on GI on outpatient basis She was evaluated by neurology who felt that her encephalopathy may be related to metabolic and infectious etiology. It was not noted that she thought it was due to her recent medication changes at their office. An EEG was completed and results are currently pending. She was evaluated by nephrology. Her acute kidney injury has resolved. Her hyponatremia has improved and her sodium is up to 134. The patient was deemed stable for discharge per Dr. Figueredo. She is to follow up on an outpatient basis with Dr. Figueredo and all consulting providers. Prescriptions percent to the patient's preferred pharmacy for Levaquin 500 mg daily for 7 days. Discharge diagnosis Mental status changes with delirium, likely secondary to new medication added to her regimen for tremors or infectious process, CT of the brain negative, resolved at time of discharge Metabolic encephalopathy, resolved at the time of discharge Suspected pneumonia, type unknown, present on admission, CXR reveals bibasilar lung opacities Recent hospitalization from 06/09/2017 until 06/11/2017 for COPD exacerbation, bilateral pneumonia, and CHF exacerbation Acute on chronic diastolic congestive heart failure Acute kidney injury, creatinine on admission 1.4, improving Liver lesion measuring 9mm, possible cyst Elevated liver enzymes, possible ischemic hepatitis, chronic liver disease, or viral hepatitis per GI Coronary artery disease with previous stent placement and CABG 4 Acute exacerbation of chronic obstructive pulmonary disease Acute on chronic hypoxic respiratory failure requiring supplemental oxygen Hyponatremia, may be secondary to dehydration, improving Essential hypertension Pulmonary hypertension Hyperlipidemia Anxiety, unspecified Nicotine dependence, patient is a current everyday cigarette smoker Nurse practitioner note has been reviewed by physician. Signing provider agrees with the documented findings, assessment, and plan of care. Patient Condition at Discharge: Poor Plan - Discharge Summary Discharge Rx Participant: No New Discharge Prescriptions: New Levofloxacin [Levaquin] 500 mg PO DAILY #7 tab Continue Hydrocodone/Acetaminophen [Hydrocodone/Acetaminophen 10-325] 1 tab PO Q8H PRN PRN Reason: Pain Gabapentin 400 mg PO TID Budesonide-Formot 160-4.5 Mcg [Symbicort 160-4.5 Mcg Inhaler] 2 puff INHALATION RT-BID #1 inhaler Atorvastatin [Lipitor] 80 mg PO HS #30 tab Nitroglycerin Sl Tabs [Nitrostat] 0.4 mg SUBLINGUAL Q5M PRN #25 tab PRN Reason: Chest Pain Cyanocobalamin [Vitamin B-12] 500 mcg PO DAILY Multivitamins, Thera [Multivitamin (formulary)] 1 tab PO DAILY Primidone [Mysoline] 50 mg PO TID Vitamin E 1,000 unit PO DAILY Tiotropium [place] [Spiriva] 18 mcg INHALATION RT-DAILY Aspirin 81 mg PO DAILY Latanoprost Ophth [Xalatan 0.005%] 1 drops LEFT EYE HS Clopidogrel [Plavix] 75 mg PO DAILY #30 tab Albuterol Nebulized [Ventolin Nebulized] 2.5 mg INHALATION RT-Q4H PRN PRN Reason: Shortness Of Breath Calcium Carbonate [Calcium] 600 mg PO DAILY Magnesium Gluconate [Magonate] 1,000 mg PO DAILY Famotidine [Pepcid] 20 mg PO DAILY PRN PRN Reason: reflux Metoprolol Succinate (ER) [Toprol XL] 50 mg PO DAILY Spironolactone [Aldactone] 25 mg PO DAILY buPROPion XL [Wellbutrin XL] 150 mg PO DAILY Furosemide [Lasix] 40 mg PO DAILY PARoxetine HCL [Paxil] 30 mg PO BID Amitriptyline HCl [Elavil] 25 mg PO HS Propranolol [Inderal] 40 mg PO BID Discharge Medication List Gabapentin 400 mg PO TID 06/24/14 [History] Hydrocodone/Acetaminophen [Hydrocodone/Acetaminophen 10-325] 1 tab PO Q8H PRN [History] Budesonide-Formot 160-4.5 Mcg [Symbicort 160-4.5 Mcg Inhaler] 2 puff INHALATION RT-BID #1 inhaler 06/29/14 [Rx] Atorvastatin [Lipitor] 80 mg PO HS #30 tab 07/18/14 [Rx] Nitroglycerin Sl Tabs [Nitrostat] 0.4 mg SUBLINGUAL Q5M PRN #25 tab 07/18/14 [Rx ] Cyanocobalamin [Vitamin B-12] 500 mcg PO DAILY 07/21/14 [History] Multivitamins, Thera [Multivitamin (formulary)] 1 tab PO DAILY 07/21/14 [History ] Primidone [Mysoline] 50 mg PO TID 10/29/14 [History] Aspirin 81 mg PO DAILY 09/17/15 [History] Tiotropium [place] [Spiriva] 18 mcg INHALATION RT-DAILY 09/17/15 [History] Vitamin E 1,000 unit PO DAILY 09/17/15 [History] Latanoprost Ophth [Xalatan 0.005%] 1 drops LEFT EYE HS 08/05/16 [History] Clopidogrel [Plavix] 75 mg PO DAILY #30 tab 08/06/16 [Rx] Albuterol Nebulized [Ventolin Nebulized] 2.5 mg INHALATION RT-Q4H PRN 12/04/16 [ History] Calcium Carbonate [Calcium] 600 mg PO DAILY 12/04/16 [History] Magnesium Gluconate [Magonate] 1,000 mg PO DAILY 12/04/16 [History] Famotidine [Pepcid] 20 mg PO DAILY PRN 02/11/17 [History] Furosemide [Lasix] 40 mg PO DAILY 02/11/17 [History] Metoprolol Succinate (ER) [Toprol XL] 50 mg PO DAILY 02/11/17 [History] Spironolactone [Aldactone] 25 mg PO DAILY 02/11/17 [History] buPROPion XL [Wellbutrin XL] 150 mg PO DAILY 02/11/17 [History] PARoxetine HCL [Paxil] 30 mg PO BID 03/26/17 [History] Amitriptyline HCl [Elavil] 25 mg PO HS 05/11/17 [History] Propranolol [Inderal] 40 mg PO BID 06/27/17 [History] Levofloxacin [Levaquin] 500 mg PO DAILY #7 tab 06/29/17 [Rx] Follow up Appointment(s)/Referral(s): Mango Davila MD [STAFF PHYSICIAN] - 07/19/17 4:30 pm Radha Vega MD [STAFF PHYSICIAN] - 1 Week Duarte Figueredo Jr, DO [Primary Care Provider] - 1 Week Dioni Jiménez DO [Doctor of Osteopathic Medicine] - 1 Week Arlene Chawla MD [STAFF PHYSICIAN] - 1 Week Patient Instructions/Handouts: How to Stop Smoking (DC) Discharge Disposition: HOME SELF-CARE
[2017-06-29] MEDS: HYDROcodone/APAP 10-325MG 1 EACH TAB PO PRN (14:00)
--- NOTE | 2017-06-29 14:09 | P.PN ---
Subjective Progress Note Date: 06/29/17 Principal diagnosis: Patient is a pleasant 61-year-old female who is being followed by the neurology service for altered mental status. Patient had bout of significant coughing causing shortness of breath and lightheadedness at home which led to syncopal episode. She did suffer head injury was syncopal episode and does have a bruise above her right eye. Patient reports significant improvement since being admitted. Computed tomography scan of the brain was done on admission which showed no acute intracranial abnormalities. Computed tomography scan of the brain did show generalized atrophy and small vessel ischemic changes. Patient had significantly elevated liver enzymes and admission and elevated BUN and creatinine. Nephrology was consulted and note acknowledged. Patient is currently on antibiotics for pneumonia. Pulmonology' s following. At the time of my evaluation, patient is resting comfortably in bed and appears to be in no acute distress. Patient is slightly more lethargic today but this is most likely result of being given Ativan during the night. Objective - Vital Signs Vital signs: Vital Signs Temp 97.0 F L 06/29/17 12:00 Pulse 73 06/29/17 12:03 Resp 18 06/29/17 12:00 BP 119/64 06/29/17 12:00 Pulse Ox 95 06/29/17 12:00 Intake & Output 06/28/17 06/29/17 06/29/17 18:59 06:59 18:59 Intake Total 820 Output Total 800 300 Balance 20 -300 Weight 50 kg 49.3 kg Intake: Oral 820 Output: Urine 800 300 Other: Voiding Method Bedpan Bedside Commode Bedside Commode Diaper Diaper Diaper # Voids 1 - Exam PHYSICAL EXAM: GENERAL APPEARANCE: Patient is a well-developed, female who appears to be in no acute distress. HEENT: Normocephalic, atraumatic, no facial asymmetry is seen. Neck is supple with no masses felt. CARDIOVASCULAR: Regular rate and rhythm. ABDOMEN: Nontender, nondistended. EXTREMITIES: Show no edema or clubbing. NEUROLOGICAL EXAM: Patient is awake, alert, and oriented 3. Speech and language are normal. Strength is full in all 4 extremities. Sensory exam is normal to light touch in all 4 extremities. No facial asymmetry is seen on cranial nerve testing. Intentional tremors noted in bilateral upper extremities. No seizure-like activity is noted. - Labs CBC & Chem 7: 06/29/17 05:50 06/29/17 05:50 Labs: Abnormal Lab Results - Last 24 Hours (Table) 06/28/17 06/29/17 06/29/17 Range/Units 05:39 05:50 05:50 WBC 16.3 H (3.8-10.6) k/uL Hgb 9.8 L (11.4-16.0) gm/dL Hct 33.5 L (34.0-46.0) % MCV 79.1 L (80.0-100.0) fL MCH 23.2 L (25.0-35.0) pg MCHC 29.3 L (31.0-37.0) g/dL RDW 17.7 H (11.5-15.5) % Plt Count 537 H (150-450) k/uL Neutrophils # 13.1 H (1.3-7.7) k/uL Sodium 134 L (137-145) mmol/L Chloride 94 L (98-107) mmol/L Carbon Dioxide 33 H (22-30) mmol/L Glucose 111 H (74-99) mg/dL AST 189 H (14-36) U/L ALT 447 H (9-52) U/L Ammonia (<30) umol/L Total Protein 6.1 L (6.3-8.2) g/dL Total Protein (PEP) 5.8 L (6.2-8.2) g/dL Albumin 3.3 L (3.5-5.0) g/dL 06/29/17 Range/Units 05:50 WBC (3.8-10.6) k/uL Hgb (11.4-16.0) gm/dL Hct (34.0-46.0) % MCV (80.0-100.0) fL MCH (25.0-35.0) pg MCHC (31.0-37.0) g/dL RDW (11.5-15.5) % Plt Count (150-450) k/uL Neutrophils # (1.3-7.7) k/uL Sodium (137-145) mmol/L Chloride (98-107) mmol/L Carbon Dioxide (22-30) mmol/L Glucose (74-99) mg/dL AST (14-36) U/L ALT (9-52) U/L Ammonia 30 H (<30) umol/L Total Protein (6.3-8.2) g/dL Total Protein (PEP) (6.2-8.2) g/dL Albumin (3.5-5.0) g/dL Microbiology - Last 24 Hours (Table) 06/27/17 10:36 Urine Culture - Final Urine,Voided Assessment and Plan Plan: Impression: 1. Altered mental status, improved 2. Multifactorial encephalopathy 3. Hepatic insufficiency 4. Renal insufficiency 5. Pneumonia 6. Benign familial tremor 7. Small vessel ischemic disease Recommendation: Patient's altered mental status is likely due to multifactorial encephalopathy given infectious and metabolic state. She is currently on antibiotics for pneumonia. She has known hepatic disease and renal insufficiency. Nephrology consult noted. EEG was normal. Continue antibiotic therapy. Continue neurological checks. She is stable from neurological standpoint for discharge. I will continue to follow with you on an as-needed basis. Feel free to call me with any questions or concerns. I performed an examination of the patient and discussed the management with the BOAT TESTER. I have reviewed the BOAT TESTER notes and agree with the findings and plan of care.
--- NOTE | 2017-06-29 15:31 | P.PN ---
Subjective Progress Note Date: 06/29/17 His is a 61-year-old female who follows regularly with Dr. Gan in the office. She has a known history of coronary artery disease with prior stenting of the RCA in 2014, patient also had coronary artery bypass grafting surgery in 2017. History of PAD with prior peripheral stenting, hypertension, hyperlipidemia, nicotine dependence, ischemic cardiomyopathy with prior documented ejection fraction of 30-35%, severe pulmonary hypertension, repeat echocardiogram with Doppler study which was performed on May 2017 revealed an ejection fraction of 50-55%. moderate to severe emphysema and COPD. Patient does have history of breast cancer, anxiety and tremors. She states that she was taking Mysoline for her tremors, and in spite of that her tremors had been getting significantly worse. For this reason she went to see her neurologist to put her on a new medication, she states that after taking this medication she became quite delirious and confused, she also states that she was so weak she was unable to get up out of the bed. For this reason she came to the emergency room for further evaluation. Patient does appear to be short of breath while lying in bed, she states that her breathing is no different than her usual according to her. She does state that she has had a recent pneumonia for which she was treated by Dr. Cardoso. Chest x-ray on admission reveals possible trace pleural effusions with bibasilar lung opacities which may represent atelectasis and or infiltrate. Just of the abdomen was performed which revealed a 9 mm hypodense lesion in the posterior right hepatic dome. Mildly hydropic gallbladder with sludge. EKG showed a normal sinus rhythm with no acute changes. CAT scan of the brain was performed which revealed age- related atrophic and chronic small vessel ischemic change without acute intracranial process. Blood pressure on arrival here 196/70 with a heart rate in the 60s, 95 as of oxygen. Blood pressure this morning 90/50 with a heart rate in the 60s, 93% on 2 L. Laboratory data was reviewed, white blood cell count 19.4 on admission, 12.9 this morning. Hemoglobin 10.2, platelet count 548. D-dimer 0.74. ABGs were performed, pH 7.4, pCO2 43, pO2 86, HCO3 26, total CO2 28, oxygen saturation 96. Sodium on admission 127, 133 this morning. Potassium 4.3, BUN on admission 53, creatinine 1.4, 32 and 0.8 this morning. A mag level 2.3. AST and admission 1186, 402 this morning, ALT 1073, 601 this morning, alk phos 169, 128 this morning her troponins 0.018, 0.015, 0.014. BNP level 14,400. At the time of my examination this morning, patient is alert and oriented 3, she does appear to be quite short of breath, sitting up in the bed. She was initiated on IV Lasix in the emergency room. She is incontinent of urine. Her weight is unchanged from yesterday. 06/29 2017 Seen and examined this morning, states that her breathing is improving. Hemodynamically stable. Hemoglobin 9.8, Bun 15, creatinine 0.5. AST 189, ALT 447, alk phos 125. On oral diuretics. Objective - Vital Signs Vital signs: Vital Signs Temp 97.0 F L 06/29/17 12:00 Pulse 73 06/29/17 12:03 Resp 18 06/29/17 12:00 BP 119/64 06/29/17 12:00 Pulse Ox 95 06/29/17 12:00 Intake & Output 06/28/17 06/29/17 06/29/17 18:59 06:59 18:59 Intake Total 820 240 Output Total 800 300 400 Balance 20 -300 -160 Weight 50 kg 49.3 kg Intake: Oral 820 240 Output: Urine 800 300 400 Other: Voiding Method Bedpan Bedside Commode Bedside Commode Diaper Diaper Diaper # Voids 1 - Exam PHYSICAL EXAMINATION: HEENT: [Head is atraumatic, normocephalic. Pupils equal, round. Neck is supple. There is elevated jugular venous pressure.] HEART EXAMINATION: [Heart S1, S2 normal. No murmur or gallop heard.] CHEST EXAMINATION: Lungs reveal decreased air exchange throughout with fine expiratory wheezing. ABDOMEN: [ Soft, mild tenderness in right upper quadrant. Bowel sounds are heard. No organomegaly noted]. EXTREMITIES:[ 1+ peripheral pulses with no evidence of peripheral edema and no calf tenderness noted]. She does have a cast on her left arm from a recent fracture in May. NEUROLOGIC [patient is awake, alert and oriented -3.] - Labs CBC & Chem 7: 06/29/17 05:50 06/29/17 05:50 Labs: Abnormal Lab Results - Last 24 Hours (Table) 06/28/17 06/29/17 06/29/17 Range/Units 05:39 05:50 05:50 WBC 16.3 H (3.8-10.6) k/uL Hgb 9.8 L (11.4-16.0) gm/dL Hct 33.5 L (34.0-46.0) % MCV 79.1 L (80.0-100.0) fL MCH 23.2 L (25.0-35.0) pg MCHC 29.3 L (31.0-37.0) g/dL RDW 17.7 H (11.5-15.5) % Plt Count 537 H (150-450) k/uL Neutrophils # 13.1 H (1.3-7.7) k/uL Sodium 134 L (137-145) mmol/L Chloride 94 L (98-107) mmol/L Carbon Dioxide 33 H (22-30) mmol/L Glucose 111 H (74-99) mg/dL AST 189 H (14-36) U/L ALT 447 H (9-52) U/L Ammonia (<30) umol/L Total Protein 6.1 L (6.3-8.2) g/dL Total Protein (PEP) 5.8 L (6.2-8.2) g/dL Albumin 3.3 L (3.5-5.0) g/dL 06/29/17 Range/Units 05:50 WBC (3.8-10.6) k/uL Hgb (11.4-16.0) gm/dL Hct (34.0-46.0) % MCV (80.0-100.0) fL MCH (25.0-35.0) pg MCHC (31.0-37.0) g/dL RDW (11.5-15.5) % Plt Count (150-450) k/uL Neutrophils # (1.3-7.7) k/uL Sodium (137-145) mmol/L Chloride (98-107) mmol/L Carbon Dioxide (22-30) mmol/L Glucose (74-99) mg/dL AST (14-36) U/L ALT (9-52) U/L Ammonia 30 H (<30) umol/L Total Protein (6.3-8.2) g/dL Total Protein (PEP) (6.2-8.2) g/dL Albumin (3.5-5.0) g/dL Microbiology - Last 24 Hours (Table) 06/27/17 10:36 Urine Culture - Final Urine,Voided Assessment and Plan Plan: Assessment and plan #1 mental status changes with associated delirium and weakness, likely secondary to new medication administered for tremors. Alert and oriented 3 this morning. CAT scan of the brain did not reveal any significant abnormalities. #2 shortness of breath, likely secondary to combination of recent pneumonia, COPD exacerbation, and congestive heart failure, diastolic in nature acute on chronic. BNP level 14,400. Chest X-ray does not show any significant heart failure #3 known history of coronary artery disease with prior bypass surgery and stent placement. Patient also has history of mitral valve repair #4 severe PAD with prior stent placements Number 5 hypertension #6 hyperlipidemia #7 nicotine dependence #8 COPD #9 anxiety #10 abnormal liver enzymes, improving this morning. Could be secondary to congestion #11 Hyponatremia, improved this morning. 133 this morning #127 on admission. Creatinine 1.4 on admission 0.8 this morning. Suggesting mild dehydration on admission. Plan Recent echocardiogram with Doppler study performed in May revealed an ejection fraction of 50-55%. We'll not repeat an echo. 10 you current medications. We will follow this patient with you now on an as-needed basis only, please don't hesitate to call with any questions. DNP note has been reviewed, I agree with a documented findings and plan of care. Patient was seen and examined.
[2017-06-29 16:36] LABS: Alpha Fetoprotein, Tumor Mkr 1.7 ng/mL (0.0-7.9)
[2017-06-29 17:28] LABS: Iron Saturation 4.06 (12.00-45.00)
[2017-06-30] MEDS ORDERED: LEVOFLOXACIN 500 MG TAB PO SCH (09:00)
[2017-06-30 09:31] LABS: Albumin 2.96 g/dL (3.80-4.90); Gamma Globulin 0.61 g/dL (0.70-1.50)
--- NOTE | 2017-06-30 11:34 | EEG ---
ELECTROENCEPHALOGRAM REPORT DATE OF SERVICE: 06/28/2017 REASON FOR TESTING: Altered mental status. DESCRIPTION OF THE PROCEDURE: This EEG was performed using a 21-channel digital electroencephalograph, following international 10-20 system. DESCRIPTION OF THE RECORDING: From the beginning of the tracing, and with the patient's eyes closed, the background rhythm was mostly consisting of 6-7 Hz theta frequency in the posterior occipital leads. No obvious asymmetry is seen. Frequent muscle and movement artifacts are seen. Photic stimulation was performed with no driving response seen. No pathological waves were elicited. Hyperventilation was not performed. The test was stopped prematurely per patient's request. No obvious epileptiform discharges were seen. Her EKG lead showed a regular rate and rhythm. INTERPRETATION: This awake EEG is abnormal due to the presence of generalized slowing of the background rhythm, mostly in the theta range. This is consistent with mild encephalopathy. Overall, this test is limited due to the frequency of movement artifacts and due to the patient requesting that the test be stopped prematurely. No obvious epileptiform discharges were seen. The absence of epileptiform discharges does not rule out the diagnosis of epilepsy; therefore clinical correlation is recommended. MMBELENL / WILLN: [id number] /
[2017-06-30 12:31] LABS: Ceruloplasmin 44.8 mg/dL (20.0-60.0)
== END 2017-06-29 14:45 | disposition home or self-care (01) | DRG 291 ==
LOC: EC 02:54 → 6SEL 07:23
PROVIDERS: ADMIT Family Medicine; ATTEND Family Medicine
DX: I11.0 Hypertensive heart disease with heart failure (principal); J96.21 Acute and chronic respiratory failure with hypoxia; G93.41 Metabolic encephalopathy; J18.9 Pneumonia, unspecified organism; N17.9 Acute kidney failure, unspecified; K82.1 Hydrops of gallbladder; E86.0 Dehydration; I27.29 Other secondary pulmonary hypertension; Z99.81 Dependence on supplemental oxygen; E87.1 Hypo-osmolality and hyponatremia; J44.0 Chronic obstructive pulmonary disease with (acute) lower respiratory infection; J44.1 Chronic obstructive pulmonary disease with (acute) exacerbation; T50.995A Adverse effect of other drugs, medicaments and biological substances, initial encounter; E78.5 Hyperlipidemia, unspecified; I50.33 Acute on chronic diastolic (congestive) heart failure; F17.210 Nicotine dependence, cigarettes, uncomplicated; F32.9 Major depressive disorder, single episode, unspecified; F41.9 Anxiety disorder, unspecified; G25.0 Essential tremor; G89.4 Chronic pain syndrome; H40.9 Unspecified glaucoma; I25.10 Atherosclerotic heart disease of native coronary artery without angina pectoris; I25.2 Old myocardial infarction; I25.5 Ischemic cardiomyopathy; I73.9 Peripheral vascular disease, unspecified; K21.9 Gastro-esophageal reflux disease without esophagitis; K90.0 Celiac disease; M19.90 Unspecified osteoarthritis, unspecified site; M81.0 Age-related osteoporosis without current pathological fracture; R32 Unspecified urinary incontinence; S00.81XA Abrasion of other part of head, initial encounter; K76.9 Liver disease, unspecified; R74.8 Abnormal levels of other serum enzymes; M25.532 Pain in left wrist; M54.5 Low back pain; R41.0 Disorientation, unspecified; Z79.02 Long term (current) use of antithrombotics/antiplatelets; Z79.51 Long term (current) use of inhaled steroids; Z79.82 Long term (current) use of aspirin; Z79.899 Other long term (current) drug therapy; Z95.5 Presence of coronary angioplasty implant and graft; Z95.1 Presence of aortocoronary bypass graft; Z87.01 Personal history of pneumonia (recurrent); Z85.3 Personal history of malignant neoplasm of breast; Z88.1 Allergy status to other antibiotic agents; Z82.49 Family history of ischemic heart disease and other diseases of the circulatory system; W18.30XA Fall on same level, unspecified, initial encounter; Y92.009 Unspecified place in unspecified non-institutional (private) residence as the place of occurrence of the external cause
CPT/HCPCS: 36415; 36600; 51701; 70450; 71046; 74176; 76705; 80053; 80074; 81001; 82103; 82105; 82140; 82150; 82390; 82550; 82553; 82728; 82805; 83516; 83540; 83550; 83605; 83690; 83735; 83880; 84165; 84484; 85025; 85379; 85610; 85730; 86038; 87086; 93005; 94640; 94660; 94760; 96361; 96365; 96366; 96374; 99285

== ENCOUNTER 2017-07-20 22:50 | Inpatient (IN) | payer OTHER ==
[2017-07-20] MEDS ORDERED: SODIUM CHLORIDE 0.9% 1,000 ML IV STA ×2 (23:04)
[2017-07-20] MEDS ORDERED: AZITHROMYCIN 500 MG in SODIUM CHLORIDE 0.9% 250 ML IVPB STA (23:04)
[2017-07-20] MEDS ORDERED: LORazepam 2 MG/ML INJ IV STA (23:04)
[2017-07-20] MEDS ORDERED: methylPREDNISolone SOD SUCCI 125 MG/2 ML VIAL IV STA (23:04)
[2017-07-20] MEDS ORDERED: MORPHINE SULFATE 4 MG/ML SYRINGE IVP STA (23:11)
--- NOTE | 2017-07-20 23:11 | ED ---
General Adult HPI - General Chief complaint: Shortness of Breath Stated complaint: FESTUS Time Seen by Provider: 07/20/17 22:56 Source: patient, RN notes reviewed, old records reviewed Mode of arrival: EMS Limitations: no limitations - History of Present Illness Initial comments: This is a 61-year-old female to ER for evasive significant shortness of breath, patient is in current distress. Patient complains of severe shortness of breath. History of significant COPD on home O2. Patient also suffers from heart failure CAD and history of NC. Patient originally had chest pain all was given some nitro symptoms progressed. He is a shortness of breath for about 2 days significantly worsening. Denies fever. No increase in cough or congestion. Patient had a difficult time catching her breath currently - Related Data Home Medications Medication Instructions Recorded Confirmed Gabapentin 400 mg PO TID 06/24/14 07/20/17 Hydrocodone/Acetaminophen 1 tab PO Q8H PRN 06/24/14 07/20/17 [Hydrocodone/Acetaminophen 10-325] Cyanocobalamin [Vitamin B-12] 500 mcg PO DAILY 07/21/14 07/20/17 Multivitamins, Thera [Multivitamin 1 tab PO DAILY 07/21/14 07/20/17 (formulary)] Primidone [Mysoline] 50 mg PO TID 10/29/14 07/20/17 Aspirin 81 mg PO DAILY 09/17/15 07/20/17 Tiotropium [place] [Spiriva] 1 cap INHALATION RT-DAILY 09/17/15 07/20/17 Vitamin E 1,000 unit PO DAILY 09/17/15 07/20/17 Albuterol Nebulized [Ventolin 2.5 mg INHALATION RT-Q4H PRN 12/04/16 07/20/17 Nebulized] Calcium Carbonate [Calcium] 600 mg PO DAILY 12/04/16 07/20/17 Magnesium Gluconate [Magonate] 1,000 mg PO DAILY 12/04/16 07/20/17 Famotidine [Pepcid] 20 mg PO DAILY PRN 02/11/17 07/20/17 Furosemide [Lasix] 40 mg PO BID 02/11/17 07/20/17 Metoprolol Succinate (ER) [Toprol 50 mg PO DAILY 02/11/17 07/20/17 XL] Spironolactone [Aldactone] 25 mg PO DAILY 02/11/17 07/20/17 buPROPion XL [Wellbutrin XL] 75 mg PO DAILY 02/11/17 07/20/17 PARoxetine HCL [Paxil] 30 mg PO BID 03/26/17 07/20/17 Amitriptyline HCl [Elavil] 25 mg PO HS 05/11/17 07/20/17 Propranolol [Inderal] 40 mg PO BID 06/27/17 07/20/17 Zolpidem [Ambien] 10 mg PO HS PRN 07/20/17 07/20/17 Previous Rx's Medication Instructions Recorded Budesonide-Formot 160-4.5 Mcg 2 puff INHALATION RT-BID #1 inhaler 06/29/14 [Symbicort 160-4.5 Mcg Inhaler] Atorvastatin [Lipitor] 80 mg PO HS #30 tab 07/18/14 Nitroglycerin Sl Tabs [Nitrostat] 0.4 mg SUBLINGUAL Q5M PRN #25 tab 07/18/14 Clopidogrel [Plavix] 75 mg PO DAILY #30 tab 08/06/16 ALPRAZolam [Xanax] 0.25 mg PO TID PRN tab 07/25/17 Amoxic-Pot Clav 875-125Mg 1 each PO Q12HR #14 tab 07/25/17 [Augmentin 875-125] predniSONE See Taper PO DIRECTED #20 tab 07/25/17 Allergies Allergy/AdvReac Type Severity Reaction Status Date / Time latanoprost Allergy Swelling Verified 07/20/17 23:14 Review of Systems ROS Statement: Those systems with pertinent positive or pertinent negative responses have been documented in the HPI. ROS Other: All systems not noted in ROS Statement are negative. Past Medical History Past Medical History: Coronary Artery Disease (CAD), Cancer, Heart Failure, COPD , Eye Disorder, GERD/Reflux, Hyperlipidemia, Myocardial Infarction (NC), Respiratory Disorder, Vascular Disorder Additional Past Medical History / Comment(s): chronic hypoxic respiratory failure, CHF with an ejection fraction of less than 20% with significant degree of secondary pulmonary hypertension, ischemic cardiac myopathy, O2 1.5L/NC at HS , celiac disease,R breast cancer, osteoporosis, PAD, chronic pain L wrist ( previous injury with sx), L eye possible glaucoma, sinus problems. Last Myocardial Infarction Date:: 2014 History of Any Multi-Drug Resistant Organisms: None Reported Past Surgical History: Breast Surgery, Section, Coronary Bypass/CABG, Heart Catheterization With Stent, Orthopedic Surgery Additional Past Surgical History / Comment(s): 11/2016 CABG 4 vessel with mitral/ tricuspid surgery at [facility]-also had thoracentesis, R breast lumpectomy, L WRIST SX X3, D&C, 11-01-14 AORTAGRAM W/RUNOFF- CECILIO ILIAC STENTS, colonoscopy. Past Anesthesia/Blood Transfusion Reactions: No Reported Reaction Additional Past Anesthesia/Blood Transfusion Reaction / Comment(s): no hx blood transfusion Date of Last Stent Placement:: 2014 Past Psychological History: Anxiety, Depression Smoking Status: Current every day smoker Past Alcohol Use History: None Reported Past Drug Use History: None Reported - Past Family History Mother Family Medical History: Congestive Heart Failure (CHF), Diabetes Mellitus Additional Family Medical History / Comment(s): HEART ISSSUES. Mother of CHF at the age of 69yrs. Father Family Medical History: Blood Disorder Additional Family Medical History / Comment(s): HEMACHROMATOSIS. Father at the age of 69yrs from cirrhosis. He was not a drinker. General Exam Limitations: no limitations General appearance: alert, anxious, in distress, cachectic Head exam: Present: atraumatic, normocephalic, normal inspection Eye exam: Present: normal appearance, PERRL, EOMI. Absent: scleral icterus, conjunctival injection, periorbital swelling ENT exam: Present: normal exam, mucous membranes moist Neck exam: Present: normal inspection. Absent: tenderness, meningismus, lymphadenopathy Respiratory exam: Present: respiratory distress, wheezes, accessory muscle use, decreased breath sounds, prolonged expiratory. Absent: rales, rhonchi, stridor Cardiovascular Exam: Present: normal rhythm, tachycardia, normal heart sounds. Absent: systolic murmur, diastolic murmur, rubs, gallop, clicks GI/Abdominal exam: Present: soft, normal bowel sounds. Absent: distended, tenderness, guarding, rebound, rigid Extremities exam: Present: normal inspection, full ROM, normal capillary refill. Absent: tenderness, pedal edema, joint swelling, calf tenderness Back exam: Present: normal inspection Neurological exam: Present: alert, oriented X3, CN II-XII intact Psychiatric exam: Present: normal affect, normal mood Skin exam: Present: warm, dry, intact, normal color. Absent: rash Course Vital Signs 07/20/17 07/20/17 07/21/17 22:50 23:41 00:19 Temperature 98.9 F Pulse Rate 101 H 86 96 Respiratory 36 H 28 H 28 H Rate Blood Pressure 182/95 151/86 140/71 O2 Sat by Pulse 99 95 96 Oximetry 07/21/17 01:14 Temperature 100.2 F H Pulse Rate 92 Respiratory 24 Rate Blood Pressure 100/59 O2 Sat by Pulse 96 Oximetry EKG Findings - EKG Comments: EKG Findings:: EKG shows sinus rhythm rate of 99, PA 164, QRS 100, QTC 531 Medical Decision Making - Medical Decision Making 61 female the ER for significant shortness of breath severe shortness of breath , no improvement with breathing treatment. Patient monitored closely, not requiring BiPAP at this time. Patient will be admitted for pulmonary observation - Lab Data Result diagrams: 07/25/17 07:08 07/25/17 07:08 Lab Results 07/20/17 07/20/17 07/20/17 Range/Units 23:30 23:30 23:30 WBC 12.4 H (3.8-10.6) k/uL RBC 4.40 (3.80-5.40) m/uL Hgb 10.4 L (11.4-16.0) gm/dL Hct 35.6 (34.0-46.0) % MCV 81.0 (80.0-100.0) fL MCH 23.5 L (25.0-35.0) pg MCHC 29.1 L (31.0-37.0) g/dL RDW 15.9 H (11.5-15.5) % Plt Count 424 (150-450) k/uL Neutrophils % 73 % Lymphocytes % 14 % Monocytes % 8 % Eosinophils % 3 % Basophils % 0 % Neutrophils # 9.1 H (1.3-7.7) k/uL Lymphocytes # 1.7 (1.0-4.8) k/uL Monocytes # 0.9 (0-1.0) k/uL Eosinophils # 0.4 (0-0.7) k/uL Basophils # 0.1 (0-0.2) k/uL Hypochromasia Marked Poikilocytosis Slight PT (9.0-12.0) sec INR (<1.2) APTT (22.0-30.0) sec Sodium 139 (137-145) mmol/L Potassium 3.5 (3.5-5.1) mmol/L Chloride 93 L (98-107) mmol/L Carbon Dioxide 33 H (22-30) mmol/L Anion Gap 13 mmol/L BUN 16 (7-17) mg/dL Creatinine 0.70 (0.52-1.04) mg/dL Est GFR (MDRD) Af Amer >60 (>60 ml/min/1.73 sqM) Est GFR (MDRD) Non-Af >60 (>60 ml/min/1.73 sqM) Glucose 135 H (74-99) mg/dL POC Glucose (mg/dL) (75-99) mg/dL POC Glu Foam Fabricator ID Estimated Ave Glu mg/dL Hemoglobin A1c (4.0-6.0) % Calcium 9.0 (8.4-10.2) mg/dL Phosphorus (2.5-4.5) mg/dL Magnesium 2.1 (1.6-2.3) mg/dL Total Bilirubin 0.3 (0.2-1.3) mg/dL AST 84 H (14-36) U/L ALT 56 H (9-52) U/L Alkaline Phosphatase 109 (38-126) U/L Ammonia (<30) umol/L Total Creatine Kinase 143 H (30-135) U/L CK-MB (CK-2) 4.4 H* (0.0-2.4) ng/mL CK-MB (CK-2) Rel Index 3.1 Troponin I 0.030 (0.000-0.034) ng/mL NT-Pro-B Natriuret Pep pg/mL Total Protein 7.4 (6.3-8.2) g/dL Albumin 4.3 (3.5-5.0) g/dL Influenza Type A RNA (Not Detectd) Influenza Type B (PCR) (Not Detectd) 07/20/17 07/20/17 07/20/17 Range/Units 23:30 23:30 23:30 WBC (3.8-10.6) k/uL RBC (3.80-5.40) m/uL Hgb (11.4-16.0) gm/dL Hct (34.0-46.0) % MCV (80.0-100.0) fL MCH (25.0-35.0) pg MCHC (31.0-37.0) g/dL RDW (11.5-15.5) % Plt Count (150-450) k/uL Neutrophils % % Lymphocytes % % Monocytes % % Eosinophils % % Basophils % % Neutrophils # (1.3-7.7) k/uL Lymphocytes # (1.0-4.8) k/uL Monocytes # (0-1.0) k/uL Eosinophils # (0-0.7) k/uL Basophils # (0-0.2) k/uL Hypochromasia Poikilocytosis PT 9.8 (9.0-12.0) sec INR 1.0 (<1.2) APTT 25.0 (22.0-30.0) sec Sodium (137-145) mmol/L Potassium (3.5-5.1) mmol/L Chloride (98-107) mmol/L Carbon Dioxide (22-30) mmol/L Anion Gap mmol/L BUN (7-17) mg/dL Creatinine (0.52-1.04) mg/dL Est GFR (MDRD) Af Amer (>60 ml/min/1.73 sqM) Est GFR (MDRD) Non-Af (>60 ml/min/1.73 sqM) Glucose (74-99) mg/dL POC Glucose (mg/dL) (75-99) mg/dL POC Glu Foam Fabricator ID Estimated Ave Glu mg/dL Hemoglobin A1c (4.0-6.0) % Calcium (8.4-10.2) mg/dL Phosphorus (2.5-4.5) mg/dL Magnesium (1.6-2.3) mg/dL Total Bilirubin (0.2-1.3) mg/dL AST (14-36) U/L ALT (9-52) U/L Alkaline Phosphatase (38-126) U/L Ammonia (<30) umol/L Total Creatine Kinase (30-135) U/L CK-MB (CK-2) (0.0-2.4) ng/mL CK-MB (CK-2) Rel Index Troponin I (0.000-0.034) ng/mL NT-Pro-B Natriuret Pep 7400 pg/mL Total Protein (6.3-8.2) g/dL Albumin (3.5-5.0) g/dL Influenza Type A RNA Not Detected (Not Detectd) Influenza Type B (PCR) Not Detected (Not Detectd) 07/21/17 07/21/17 07/21/17 Range/Units 10:08 10:08 10:08 WBC 7.5 (3.8-10.6) k/uL RBC 3.88 (3.80-5.40) m/uL Hgb 8.9 L D (11.4-16.0) gm/dL Hct 31.9 L (34.0-46.0) % MCV 82.3 (80.0-100.0) fL MCH 23.0 L (25.0-35.0) pg MCHC 28.0 L (31.0-37.0) g/dL RDW 15.6 H (11.5-15.5) % Plt Count 360 (150-450) k/uL Neutrophils % 89 % Lymphocytes % 7 % Monocytes % 3 % Eosinophils % 0 % Basophils % 0 % Neutrophils # 6.7 (1.3-7.7) k/uL Lymphocytes # 0.5 L (1.0-4.8) k/uL Monocytes # 0.2 (0-1.0) k/uL Eosinophils # 0.0 (0-0.7) k/uL Basophils # 0.0 (0-0.2) k/uL Hypochromasia Marked Poikilocytosis Slight PT (9.0-12.0) sec INR (<1.2) APTT (22.0-30.0) sec Sodium (137-145) mmol/L Potassium (3.5-5.1) mmol/L Chloride (98-107) mmol/L Carbon Dioxide (22-30) mmol/L Anion Gap mmol/L BUN (7-17) mg/dL Creatinine (0.52-1.04) mg/dL Est GFR (MDRD) Af Amer (>60 ml/min/1.73 sqM) Est GFR (MDRD) Non-Af (>60 ml/min/1.73 sqM) Glucose (74-99) mg/dL POC Glucose (mg/dL) (75-99) mg/dL POC Glu Foam Fabricator ID Estimated Ave Glu mg/dL 137 Hemoglobin A1c 6.4 H (4.0-6.0) % Calcium (8.4-10.2) mg/dL Phosphorus (2.5-4.5) mg/dL Magnesium (1.6-2.3) mg/dL Total Bilirubin (0.2-1.3) mg/dL AST (14-36) U/L ALT (9-52) U/L Alkaline Phosphatase (38-126) U/L Ammonia 21 (<30) umol/L Total Creatine Kinase (30-135) U/L CK-MB (CK-2) (0.0-2.4) ng/mL CK-MB (CK-2) Rel Index Troponin I (0.000-0.034) ng/mL NT-Pro-B Natriuret Pep pg/mL Total Protein (6.3-8.2) g/dL Albumin (3.5-5.0) g/dL Influenza Type A RNA (Not Detectd) Influenza Type B (PCR) (Not Detectd) 07/21/17 07/21/17 Range/Units 10:08 11:30 WBC (3.8-10.6) k/uL RBC (3.80-5.40) m/uL Hgb (11.4-16.0) gm/dL Hct (34.0-46.0) % MCV (80.0-100.0) fL MCH (25.0-35.0) pg MCHC (31.0-37.0) g/dL RDW (11.5-15.5) % Plt Count (150-450) k/uL Neutrophils % % Lymphocytes % % Monocytes % % Eosinophils % % Basophils % % Neutrophils # (1.3-7.7) k/uL Lymphocytes # (1.0-4.8) k/uL Monocytes # (0-1.0) k/uL Eosinophils # (0-0.7) k/uL Basophils # (0-0.2) k/uL Hypochromasia Poikilocytosis PT (9.0-12.0) sec INR (<1.2) APTT (22.0-30.0) sec Sodium 140 (137-145) mmol/L Potassium 3.8 (3.5-5.1) mmol/L Chloride 103 (98-107) mmol/L Carbon Dioxide 28 (22-30) mmol/L Anion Gap 9 mmol/L BUN 11 (7-17) mg/dL Creatinine 0.50 L (0.52-1.04) mg/dL Est GFR (MDRD) Af Amer >60 (>60 ml/min/1.73 sqM) Est GFR (MDRD) Non-Af >60 (>60 ml/min/1.73 sqM) Glucose 130 H (74-99) mg/dL POC Glucose (mg/dL) 339 H (75-99) mg/dL POC Glu Foam Fabricator ID Karis Roy Estimated Ave Glu mg/dL Hemoglobin A1c (4.0-6.0) % Calcium 7.9 L (8.4-10.2) mg/dL Phosphorus 3.4 (2.5-4.5) mg/dL Magnesium 1.9 (1.6-2.3) mg/dL Total Bilirubin (0.2-1.3) mg/dL AST (14-36) U/L ALT (9-52) U/L Alkaline Phosphatase (38-126) U/L Ammonia (<30) umol/L Total Creatine Kinase (30-135) U/L CK-MB (CK-2) (0.0-2.4) ng/mL CK-MB (CK-2) Rel Index Troponin I (0.000-0.034) ng/mL NT-Pro-B Natriuret Pep pg/mL Total Protein (6.3-8.2) g/dL Albumin (3.5-5.0) g/dL Influenza Type A RNA (Not Detectd) Influenza Type B (PCR) (Not Detectd) - Radiology Data Radiology results: report reviewed (Chest x-ray positive for mild CHF), image reviewed Disposition Clinical Impression: Acute exacerbation of chronic obstructive airways disease, COPD (chronic obstructive pulmonary disease), On home oxygen therapy, Dyspnea, Anxiety Disposition: ADMITTED IP TO THIS HOSP Condition: Fair
--- NOTE | 2017-07-20 23:54 | XR ---
EXAMINATION TYPE: XR chest 1V portable DATE OF EXAM: 07/20/2017 COMPARISON: 07/18/2017 HISTORY: Short of breath TECHNIQUE: Single frontal view of the chest is obtained. FINDINGS: There is coarsening of interstitial markings. Heart is slightly enlarged. There are sterna l wires. There are chest leads. I see no definite pleural effusion. Thoracic aorta is atheromatous. IMPRESSION: Interstitial fibrotic changes. Lung markings are increased compared to old exam 2 days a go. Atypical mild heart failure could be present.
[2017-07-21 00:11] LABS: Basophils # (A) 0.1 k/uL (0-0.2); Basophils % (A) 0 %; Eosinophils # (A) 0.4 k/uL (0-0.7); Eosinophils % (A) 3 %; HCT 35.6 % (34.0-46.0); HGB 10.4 gm/dL (11.4-16.0); Hypochromasia Marked; Lymphocytes # (A) 1.7 k/uL (1.0-4.8); Lymphocytes % (A) 14 %; MCH 23.5 pg (25.0-35.0); MCHC 29.1 g/dL (31.0-37.0); Mean Platelet Volume 6.2; Monocytes # (A) 0.9 k/uL (0-1.0); Monocytes % (A) 8 %; Neutrophils # (A) 9.1 k/uL (1.3-7.7); Neutrophils % (A) 73 %; Platelet Count 424 k/uL (150-450); Poikilocytosis Slight; RDW 15.9 % (11.5-15.5); WBC 12.4 k/uL (3.8-10.6)
[2017-07-21 00:22] LABS: Prothrombin Time 9.8 sec (9.0-12.0)
[2017-07-21 00:31] LABS: ALT 56 U/L (9-52); AST 84 U/L (14-36); Albumin 4.3 g/dL (3.5-5.0); Alkaline Phosphatase 109 U/L (38-126); Anion Gap 13 mmol/L; Blood Urea Nitrogen 16 mg/dL (7-17); Carbon Dioxide 33 mmol/L (22-30); Chloride 93 mmol/L (98-107); Glucose 135 mg/dL (74-99); Magnesium 2.1 mg/dL (1.6-2.3); Potassium 3.5 mmol/L (3.5-5.1); Sodium 139 mmol/L (137-145); Total Bilirubin 0.3 mg/dL (0.2-1.3); Total Protein 7.4 g/dL (6.3-8.2)
[2017-07-21 00:55] LABS: Troponin I 0.03 ng/mL (0.000-0.034)
[2017-07-21 00:59] LABS: Creatine Kinase MB 4.4 ng/mL (0.0-2.4)
[2017-07-21] MEDS: ACETAMINOPHEN TAB 325 MG TAB PO PRN (01:56)
[2017-07-21] MEDS: SODIUM CHLORIDE 0.9% 1,000 ML IV SCH ×2 (03:59→07:46)
[2017-07-21] MEDS: IPRATROPIUM-ALBUTEROL 3 ML NEB INHALATION SCH ×4 (07:14→19:07)
[2017-07-21] MEDS: methylPREDNISolone SOD SUCCI 125 MG/2 ML VIAL IV SCH ×3 (07:42→19:13)
[2017-07-21] MEDS ORDERED: HYDROcodone/APAP 10-325MG 1 EACH TAB PO PRN (09:39)
[2017-07-21] MEDS ORDERED: ALBUTEROL NEBULIZED 2.5 MG/3 ML INHALATION PRN (09:39)
[2017-07-21] MEDS ORDERED: FAMOTIDINE 20 MG TAB PO PRN (09:39)
[2017-07-21] MEDS ORDERED: NITROGLYCERIN SL TABS 0.4 MG TAB SUBLINGUAL PRN (09:39)
[2017-07-21] MEDS ORDERED: CALCIUM CARBONATE 500 MG CHEWABLE PO SCH (09:45)
[2017-07-21] MEDS ORDERED: FUROSEMIDE 40 MG TAB PO SCH (09:45)
[2017-07-21] MEDS ORDERED: CYANOCOBALAMIN 500 MCG TAB PO SCH (09:45)
[2017-07-21] MEDS ORDERED: DOXYCYCLINE 50 MG CAP PO SCH (09:45)
[2017-07-21] MEDS ORDERED: VITAMIN E (DL,TOCOPHERYL ACET) 400 UNIT CAP PO SCH (09:45)
[2017-07-21] MEDS ORDERED: MAGNESIUM OXIDE 400 MG TAB PO SCH (09:45)
[2017-07-21] MEDS ORDERED: GABAPENTIN 400 MG CAP PO SCH (09:45)
[2017-07-21] MEDS: buPROPion XL 150 MG TAB.ER.24H PO SCH (10:28)
[2017-07-21] MEDS: PRIMIDONE 50 MG TAB PO SCH ×3 (10:28→21:11)
[2017-07-21] MEDS: METOPROLOL SUCCINATE (ER) 50 MG TAB.ER.24H PO SCH (10:29)
[2017-07-21] MEDS: PROPRANOLOL 40 MG TAB PO SCH ×3 (10:29→21:12)
[2017-07-21] MEDS: SPIRONOLACTONE 25 MG TAB PO SCH (10:29)
[2017-07-21] MEDS: ASPIRIN 81 MG PO SCH (10:29)
[2017-07-21] MEDS: CLOPIDOGREL 75 MG TAB PO SCH (10:29)
[2017-07-21] MEDS ORDERED: FUROSEMIDE 10 MG/ML 2 ML VIAL IV STA (11:40)
[2017-07-21 11:44] LABS: Glucose,Whole Blood 339 mg/dL (75-99)
[2017-07-21] MEDS ORDERED: FUROSEMIDE 10 MG/ML 4 ML VIAL IV STA (11:46)
--- NOTE | 2017-07-21 11:56 | XR ---
EXAMINATION TYPE: XR chest 1V portable DATE OF EXAM: 07/21/2017 COMPARISON: 07/20/2017 INDICATION: Respiratory distress COPD TECHNIQUE: Single frontal view of the chest is obtained. FINDINGS: The heart size is normal. The pulmonary vasculature is prominent. Diffuse increased lung markings are present. Correlate for noncardiogenic pulmonary edema and volume overload. Sternotomy wires are present from previous cardiac valve surgery. IMPRESSION: 1. Clinical correlation recommended for pulmonary edema and volume overload
[2017-07-21] MEDS ORDERED: MULTIVITAMINS, THERA 1 EACH TAB PO SCH (12:00)
--- NOTE | 2017-07-21 12:31 | P.CNPUL ---
History of Present Illness Consult date: 07/21/17 Reason for consult: dyspnea, COPD, hypoxemia, pleural effusion, abnormal CXR/CT Chief complaint: Shortness of breath, respiratory distress History of present illness: Consult dated 07/21/2017 61-year-old female who presented to the emergency room with complaints of increasing shortness of breath. The patient apparently was in quite a bit of distress in the emergency room. For some reason she was apparently admitted to the fourth floor. She does have a history of significant COPD on home on oxygen. Also suffers from significant cardiomyopathy heart failure CAD previous history of myocardial infarction. She was admitted yesterday. Apparently sometime today in the morning before noon, she developed worsening respiratory distress and couldn't breathe. The rapid response team was called by one of my ICU nurses went on to evaluate her. She was transferred to the ICU and placed on BiPAP. Her BiPAP settings are 12 and 4 and 50%. Blood gases been obtained. A chest x-ray show some fluid overload. Lasix was given. Steroids were given. Again she was transferred over here to the ICU. She is very lethargic and some of this distress could've been triggered by the use of narcotics and Neurontin medications given to her this morning. He may have made her sleepy and potentiated her respiratory difficulty. Her past medical history is positive for CAD heart failure COPD gastroesophageal reflux disease hyperlipidemia myocardial infarction cardiomyopathy with ejection fraction of 20 % secondary pulmonary hypertension celiac disease right breast cancer osteoporosis peripheral artery disease glaucoma and chronic sinus disease. Surgical history includes among other things breast surgery bypass grafting heart catheterization with stent placement various orthopedic procedures. Review of Systems ROS unobtainable: due to mental status Past Medical History Past Medical History: Coronary Artery Disease (CAD), Cancer, Heart Failure, COPD , Eye Disorder, GERD/Reflux, Hyperlipidemia, Myocardial Infarction (CT), Respiratory Disorder, Vascular Disorder Additional Past Medical History / Comment(s): chronic hypoxic respiratory failure, CHF with an ejection fraction of less than 20% with significant degree of secondary pulmonary hypertension, ischemic cardiac myopathy, O2 1.5L/NC at HS , celiac disease,R breast cancer, osteoporosis, PAD, chronic pain L wrist ( previous injury with sx), L eye possible glaucoma, sinus problems. Last Myocardial Infarction Date:: 2014 History of Any Multi-Drug Resistant Organisms: None Reported Past Surgical History: Breast Surgery, Section, Coronary Bypass/CABG, Heart Catheterization With Stent, Orthopedic Surgery Additional Past Surgical History / Comment(s): 11/2016 CABG 4 vessel with mitral/ tricuspid surgery at [facility]-also had thoracentesis, R breast lumpectomy, L WRIST SX X3, D&C, 11-01-14 AORTAGRAM W/RUNOFF- CECILIO ILIAC STENTS, colonoscopy. Past Anesthesia/Blood Transfusion Reactions: No Reported Reaction Additional Past Anesthesia/Blood Transfusion Reaction / Comment(s): no hx blood transfusion Date of Last Stent Placement:: 2014 Past Psychological History: Anxiety, Depression Additional Psychological History / Comment(s): , lives in the family home with her . Used to live in the [place] area but moved here several years ago. No pets in the home at this point in time. She's an ongoing tobacco smoker. No history of injection drug use or other recreational drug use is related at this time. She has no experience. No international travel. Pt has Oxygen which she wears at 2L/NC HS. She drives. Smoking Status: Current every day smoker Past Alcohol Use History: None Reported Additional Past Alcohol Use History / Comment(s): Pt started smoking in 1968 and was up to 2 ppd. She is now down to 2-3 cigarettes a day. Past Drug Use History: None Reported - Past Family History Mother Family Medical History: Congestive Heart Failure (CHF), Diabetes Mellitus Additional Family Medical History / Comment(s): HEART ISSSUES. Mother of CHF at the age of 69yrs. Father Family Medical History: Blood Disorder Additional Family Medical History / Comment(s): HEMACHROMATOSIS. Father at the age of 69yrs from cirrhosis. He was not a drinker. Medications and Allergies Home Medications Medication Instructions Recorded Confirmed Type Gabapentin 400 mg PO TID 06/24/14 07/20/17 History Hydrocodone/Acetaminophen 1 tab PO Q8H PRN 06/24/14 07/20/17 History [Hydrocodone/Acetaminophen 10-325] Budesonide-Formot 160-4.5 Mcg 2 puff INHALATION RT-BID #1 inhaler 06/29/1407/20 Rx [Symbicort 160-4.5 Mcg Inhaler] Atorvastatin [Lipitor] 80 mg PO HS #30 tab 07/18/14 07/20/17 Rx Nitroglycerin Sl Tabs [Nitrostat] 0.4 mg SUBLINGUAL Q5M PRN #25 tab 07/18/1412/28 Rx Cyanocobalamin [Vitamin B-12] 500 mcg PO DAILY 07/21/14 07/20/17 History Multivitamins, Thera [Multivitamin 1 tab PO DAILY 07/21/14 07/20/17 History (formulary)] Primidone [Mysoline] 50 mg PO TID 10/29/14 07/20/17 History Aspirin 81 mg PO DAILY 09/17/15 07/20/17 History Tiotropium [place] [Spiriva] 1 cap INHALATION RT-DAILY 09/17/15 07/20/17 History Vitamin E 1,000 unit PO DAILY 09/17/15 07/20/17 History Clopidogrel [Plavix] 75 mg PO DAILY #30 tab 08/06/16 07/20/17 Rx Albuterol Nebulized [Ventolin 2.5 mg INHALATION RT-Q4H PRN 12/04/16 07/20/17 History Nebulized] Calcium Carbonate [Calcium] 600 mg PO DAILY 12/04/16 07/20/17 History Magnesium Gluconate [Magonate] 1,000 mg PO DAILY 12/04/16 07/20/17 History Famotidine [Pepcid] 20 mg PO DAILY PRN 02/11/17 07/20/17 History Furosemide [Lasix] 40 mg PO BID 02/11/17 07/20/17 History Metoprolol Succinate (ER) [Toprol 50 mg PO DAILY 02/11/17 07/20/17 History XL] Spironolactone [Aldactone] 25 mg PO DAILY 02/11/17 07/20/17 History buPROPion XL [Wellbutrin XL] 75 mg PO DAILY 02/11/17 07/20/17 History PARoxetine HCL [Paxil] 30 mg PO BID 03/26/17 07/20/17 History Amitriptyline HCl [Elavil] 25 mg PO HS 05/11/17 07/20/17 History Propranolol [Inderal] 40 mg PO BID 06/27/17 07/20/17 History ALPRAZolam [Xanax] 0.5 mg PO TID PRN 07/20/17 07/20/17 History Zolpidem [Ambien] 10 mg PO HS PRN 07/20/17 07/20/17 History Allergies Allergy/AdvReac Type Severity Reaction Status Date / Time latanoprost Allergy Swelling Verified 07/20/17 23:14 Physical Exam Osteopathic Statement: *. No significant issues noted on an osteopathic structural exam other than those noted in the History and Physical/Consult. Vitals: Vital Signs Temp Pulse Pulse Resp BP BP Pulse Ox 07/21/17 11:12 112 H 07/21/17 11:00 116 H 07/21/17 07:35 84 16 07/21/17 07:17 94 L 07/21/17 07:15 92 07/21/17 07:05 92 07/21/17 07:00 98.1 F 84 16 113/58 99 07/21/17 01:14 100.2 F H 92 24 100/59 96 07/21/17 00:19 96 28 H 140/71 96 07/20/17 23:41 86 28 H 151/86 95 07/20/17 22:50 98.9 F 101 H 36 H 182/95 99 Intake and Output 07/20/17 07/21/17 07/21/17 22:59 06:59 14:59 Intake Total 120 120 Balance 120 120 Intake: Oral 120 120 Other: Voiding Method Bedpan Bedside Commode # Voids 2 Weight 49.442 kg 47 kg The patient is poorly responsive. BiPAP mask in place. She is not oriented. In significant respiratory distress.. HEENT examination is grossly unremarkable. Mucous membranes are moist. Neck supple. Full range of motion. No adenopathy or thyromegaly or neck vein distention. Cardiovascular examination reveals tachycardia. Heart rate 100. It appears to be regular. No clearcut murmur noted. Heart sounds are distant.. Lungs reveals diminished breath sounds. A few scattered rhonchi. No wheezes or crackles.. Abdomen soft bowel sounds are heard. No masses or tenderness. Extremities are intact. No cyanosis clubbing or edema. Skin is without rash or lesion. Neurologic examination cannot be adequately assessed. Results - Laboratory Findings CBC and BMP: 07/20/17 23:30 07/20/17 23:30 PT/INR, D-dimer PT 9.8 sec (9.0-12.0) 07/20/17 23:30 INR 1.0 (<1.2) 07/20/17 23:30 Abnormal lab findings: Abnormal Labs 07/20/17 07/20/17 07/20/17 23:30 23:30 23:30 WBC 12.4 H Hgb 10.4 L MCH 23.5 L MCHC 29.1 L RDW 15.9 H Neutrophils # 9.1 H Chloride 93 L Carbon Dioxide 33 H Glucose 135 H POC Glucose (mg/dL) AST 84 H ALT 56 H Total Creatine Kinase 143 H CK-MB (CK-2) 4.4 H* 07/21/17 11:30 WBC Hgb MCH MCHC RDW Neutrophils # Chloride Carbon Dioxide Glucose POC Glucose (mg/dL) 339 H AST ALT Total Creatine Kinase CK-MB (CK-2) - Diagnostic Findings Chest x-ray: image reviewed Assessment and Plan Assessment: Assessment Impending respiratory failure secondary to COPD exacerbation, which is also, treated by fluid overload/CHF in a patient with severe cardiomyopathy History of CAD CHF Severe COPD Gastroesophageal reflux disease Hyperlipidemia Myocardial infarction Cardiomyopathy Breast cancer Osteoporosis Secondary pulmonary hypertension Plan: Plan dated 07/21/2017 The patient is here in the ICU. We'll get a blood gas. She was originally given Lasix. We'll make sure he is an appropriate medications including updrafts and steroids. The patient will be maintained on BiPAP. I did ask the respiratory therapist at titrate down the FiO2. Pending the blood gas, additional recommendations and suggestions are forthcoming. Prognosis is guarded. Time with Patient: Greater than 30
[2017-07-21 12:36] LABS: ABG PCO2 90 mmHg (35-45); ABG PO2 157 mmHg (83-108)
[2017-07-21 12:37] LABS: ABG Base Excess 0.8 mmol/L; ABG HCO3 31 mmol/L (21-25); ABG TCO2 31 mmol/L (19-24)
[2017-07-21 12:38] LABS: ABG PH 7.16 (7.35-7.45)
[2017-07-21] MEDS ORDERED: IPRATROPIUM-ALBUTEROL 3 ML NEB INHALATION PRN (12:48)
[2017-07-21] MEDS ORDERED: NALOXONE 0.4 MG/ML 1 ML VIAL IV PRN (12:52)
[2017-07-21 13:15] LABS: Basophils % (A) 0 %; Eosinophils % (A) 0 %; HCT 31.9 % (34.0-46.0); Hypochromasia Marked; Lymphocytes # (A) 0.5 k/uL (1.0-4.8); Lymphocytes % (A) 7 %; MCV 82.3 fL (80.0-100.0); Mean Platelet Volume 7.1; Monocytes # (A) 0.2 k/uL (0-1.0); Monocytes % (A) 3 %; Neutrophils # (A) 6.7 k/uL (1.3-7.7); Neutrophils % (A) 89 %; Platelet Count 360 k/uL (150-450); Poikilocytosis Slight; RBC 3.88 m/uL (3.80-5.40); RDW 15.6 % (11.5-15.5); WBC 7.5 k/uL (3.8-10.6)
[2017-07-21 13:18] LABS: Anion Gap 9 mmol/L; Blood Urea Nitrogen 11 mg/dL (7-17); Calcium 7.9 mg/dL (8.4-10.2); Carbon Dioxide 28 mmol/L (22-30); Chloride 103 mmol/L (98-107); Glucose 130 mg/dL (74-99); Magnesium 1.9 mg/dL (1.6-2.3); Phosphorus 3.4 mg/dL (2.5-4.5); Potassium 3.8 mmol/L (3.5-5.1); Sodium 140 mmol/L (137-145)
[2017-07-21 13:21] LABS: Appearance,Urine Clear (Clear); Bilirubin,Urine Negative (Negative); Blood,Urine Negative (Negative); Color,Urine Yellow; Glucose,Urine (UA) Negative (Negative); Ketones,Urine Negative (Negative); Leukocyte Esterase,Urine Negative (Negative); Mucus,Urine Rare /hpf; Nitrite,Urine Negative (Negative); PH, Urine 7.5 (5.0-8.0); Protein,Urine 2+ (Negative); RBC,Urine 1 /hpf (0-5); Specific Gravity,Urine 1.008 (1.001-1.035); Squamous Epithelial Cell,Urine <1 /hpf (0-4); Urobilinogen,Urine <2.0 mg/dL (<2.0); WBC,Urine 3 /hpf (0-5)
[2017-07-21 13:27] LABS: HGB 8.9 gm/dL (11.4-16.0)
[2017-07-21 13:46] VITALS: BMI 18.9
[2017-07-21] MEDS: PIPERACILLIN-TAZOBACTAM 3.375 GM in DEXTROSE/WATER 1 50ML.BAG IVPB SCH (15:27)
[2017-07-21] MEDS: INSULIN ASPART 100 UNIT/ML 1 ML 10 ML VIAL SQ SCH ×2 (15:31→21:11)
[2017-07-21 15:32] LABS: Glucose,Whole Blood 119 mg/dL (75-99)
--- NOTE | 2017-07-21 15:41 | P.HPIM ---
History of Present Illness H&P Date: 07/21/17 Chief Complaint: Shortness of breath 61-year-old female who presented to the emergency room with a chief complaint of shortness of breath. Patient states she has been progressively short of breath over the last 24 hours. She denied chest pain or pressure. Denies cough or sputum production. Denies fever or chills. Denies nausea or vomiting. The patient was recently hospitalized from 11/25/2017 until 06/29/2017 secondary to mental status changes, suspected pneumonia, acute kidney injury, and congestive heart failure. The patient has a history of coronary artery disease, congestive heart failure, chronic obstructive pulmonary disease, gastro-esophageal reflux disease, hyperlipidemia, myocardial infarction, and anxiety. The patient underwent a CABG 4 vessel with mitral valve and tricuspid valve surgery in November 2016. She is a current everyday cigarette smoker and states she is smoking about 5 or 6 cigarettes a day. She denies alcohol use. Echocardiogram from May 2017 reveals an ejection fraction of 50-55%, posterior and inferior hypokinesis, mild mitral regurgitation, mild tricuspid regurgitation, mild pulmonary hypertension with RVSP of 45.35. Her previous echocardiogram was completed in November 2016 and revealed an ejection fraction of 20%. Chest x-ray: Interstitial fibrotic changes, atypical mild heart failure may be present Laboratory data: WBC 12.4. Hemoglobin 10.4. Platelet count 424. Sodium 139. Potassium 3.5. BUN 16. Creatinine 0.70. Glucose 135. Magnesium 2.1. AST 84 and ALT 56 Troponins 0.030 BNP: 7400 Testing for influenza A and B was negative Urinalysis reveals: 2+ proteinuria but otherwise unremarkable The patient was admitted to the hospital under the care of Dr. Figueredo. The patient was seen and examined at the bedside early this morning. Patient was very lethargic but was arousable to verbal stimuli. Patient had stated she did not sleep much overnight. MAR shows that patient did receive IV ativan and IV morphine around midnight. Spoke with nursing who states patient did not receive any narcotics this morning. Patient was maintaining oxygen saturation greater than 92%. Vital signs were stable at time. Patient was evaluated last admission for chronic liver disease due to elevated liver enzymes. Ammonia level was ordered to rule out hepatic encephalopathy. Ammonia level was within normal limits at 21. Nurse practitioner was called by nursing staff that patient very suddenly became short of breath, tachypneic, and was foaming at the mouth. Prior to this , nursing states patient was more awake than this morning and had been up twice to the bedside commonde to urinate. Rapid response was called. Patient was placed on Bipap. Chest xray was completed revealing pulmonary edema and volume overload. Lasix 40mg IV was ordered. Patient remains on IV steroids as well. ABG was completed revealing pH 7.16, CO2 90, pO2 157, bicarb 31. Patient was transferred to the intensive care unit. Consult was placed for pulmonary. Dr. Figueredo evaluated patient in the intensive care unit. Dr. Figueredo spoke with two family members present at the bedside. Review of Systems GENERAL: Patient denies fever. Denies chills. EYES: Denies blurred vision. Denies vision changes. Denies eye pain. EARS, NOSE, MOUTH, & THROAT: Denies headache. Denies sore throat. Denies ear pain. RESPIRATORY: Positive for shortness of breath. Denies cough. Denies sputum production. Denies hemoptysis. CARDIOVASCULAR: Denies chest pain or pressure. Denies palpitations. Denies arrhythmias. GASTROINTESTINAL: Denies abdominal pain. Denies diarrhea. Denies constipation. Denies nausea. Denies vomiting. Denies heartburn. Denies blood in the stool. GENITOURINARY: Denies urinary frequency. Denies burning. Denies dysuria. Denies cloudy urine. Denies blood in the urine. MUSCULOSKELETAL: Denies myalgias. Denies joint swelling. Denies decreased range of motion beyond patients baseline. INTEGUMENTARY: Denies pruitis. Denies rash. PSYCHIATRIC: Positive for anxiety. Denies suicidal or homicial ideations. ENDOCRINE: Denies weight change. Denies polydipsia. Denies polyuria. HEMATOLOGIC: Denies bleeding disorders. Past Medical History Past Medical History: Coronary Artery Disease (CAD), Cancer, Heart Failure, COPD , Eye Disorder, GERD/Reflux, Hyperlipidemia, Myocardial Infarction (NC), Respiratory Disorder, Vascular Disorder Additional Past Medical History / Comment(s): chronic hypoxic respiratory failure, CHF with an ejection fraction of less than 20% with significant degree of secondary pulmonary hypertension, ischemic cardiac myopathy, O2 1.5L/NC at HS , celiac disease,R breast cancer, osteoporosis, PAD, chronic pain L wrist ( previous injury with sx), L eye possible glaucoma, sinus problems. Last Myocardial Infarction Date:: 2014 History of Any Multi-Drug Resistant Organisms: None Reported Past Surgical History: Breast Surgery, Section, Coronary Bypass/CABG, Heart Catheterization With Stent, Orthopedic Surgery Additional Past Surgical History / Comment(s): 11/2016 CABG 4 vessel with mitral/ tricuspid surgery at [facility]-also had thoracentesis, R breast lumpectomy, L WRIST SX X3, D&C, 11-01-14 AORTAGRAM W/RUNOFF- CECILIO ILIAC STENTS, colonoscopy. Past Anesthesia/Blood Transfusion Reactions: No Reported Reaction Additional Past Anesthesia/Blood Transfusion Reaction / Comment(s): no hx blood transfusion Date of Last Stent Placement:: 2014 Past Psychological History: Anxiety, Depression Additional Psychological History / Comment(s): , lives in the family home with her . Used to live in the [place] area but moved here several years ago. No pets in the home at this point in time. She's an ongoing tobacco smoker. No history of injection drug use or other recreational drug use is related at this time. She has no experience. No international travel. Pt has Oxygen which she wears at 2L/NC HS. She drives. Smoking Status: Current every day smoker Past Alcohol Use History: None Reported Additional Past Alcohol Use History / Comment(s): Pt started smoking in 1968 and was up to 2 ppd. She is now down to 2-3 cigarettes a day. Past Drug Use History: None Reported - Past Family History Mother Family Medical History: Congestive Heart Failure (CHF), Diabetes Mellitus Additional Family Medical History / Comment(s): HEART ISSSUES. Mother of CHF at the age of 69yrs. Father Family Medical History: Blood Disorder Additional Family Medical History / Comment(s): HEMACHROMATOSIS. Father at the age of 69yrs from cirrhosis. He was not a drinker. Medications and Allergies Home Medications Medication Instructions Recorded Confirmed Type Gabapentin 400 mg PO TID 06/24/14 07/20/17 History Hydrocodone/Acetaminophen 1 tab PO Q8H PRN 06/24/14 07/20/17 History [Hydrocodone/Acetaminophen 10-325] Budesonide-Formot 160-4.5 Mcg 2 puff INHALATION RT-BID #1 inhaler 06/29/1407/20 Rx [Symbicort 160-4.5 Mcg Inhaler] Atorvastatin [Lipitor] 80 mg PO HS #30 tab 07/18/14 07/20/17 Rx Nitroglycerin Sl Tabs [Nitrostat] 0.4 mg SUBLINGUAL Q5M PRN #25 tab 07/18/1412/28 Rx Cyanocobalamin [Vitamin B-12] 500 mcg PO DAILY 07/21/14 07/20/17 History Multivitamins, Thera [Multivitamin 1 tab PO DAILY 07/21/14 07/20/17 History (formulary)] Primidone [Mysoline] 50 mg PO TID 10/29/14 07/20/17 History Aspirin 81 mg PO DAILY 09/17/15 07/20/17 History Tiotropium [place] [Spiriva] 1 cap INHALATION RT-DAILY 09/17/15 07/20/17 History Vitamin E 1,000 unit PO DAILY 09/17/15 07/20/17 History Clopidogrel [Plavix] 75 mg PO DAILY #30 tab 08/06/16 07/20/17 Rx Albuterol Nebulized [Ventolin 2.5 mg INHALATION RT-Q4H PRN 12/04/16 07/20/17 History Nebulized] Calcium Carbonate [Calcium] 600 mg PO DAILY 12/04/16 07/20/17 History Magnesium Gluconate [Magonate] 1,000 mg PO DAILY 12/04/16 07/20/17 History Famotidine [Pepcid] 20 mg PO DAILY PRN 02/11/17 07/20/17 History Furosemide [Lasix] 40 mg PO BID 02/11/17 07/20/17 History Metoprolol Succinate (ER) [Toprol 50 mg PO DAILY 02/11/17 07/20/17 History XL] Spironolactone [Aldactone] 25 mg PO DAILY 02/11/17 07/20/17 History buPROPion XL [Wellbutrin XL] 75 mg PO DAILY 02/11/17 07/20/17 History PARoxetine HCL [Paxil] 30 mg PO BID 03/26/17 07/20/17 History Amitriptyline HCl [Elavil] 25 mg PO HS 05/11/17 07/20/17 History Propranolol [Inderal] 40 mg PO BID 06/27/17 07/20/17 History ALPRAZolam [Xanax] 0.5 mg PO TID PRN 07/20/17 07/20/17 History Zolpidem [Ambien] 10 mg PO HS PRN 07/20/17 07/20/17 History Allergies Allergy/AdvReac Type Severity Reaction Status Date / Time latanoprost Allergy Swelling Verified 07/20/17 23:14 Physical Exam Vitals: Vital Signs Temp Pulse Pulse Resp BP BP Pulse Ox 07/21/17 14:00 73 19 84/52 90 L 07/21/17 13:45 72 20 84/52 91 L 07/21/17 13:30 74 24 91/56 91 L 07/21/17 13:15 82 29 H 127/81 88 L 07/21/17 13:00 81 39 H 128/69 93 L 07/21/17 12:45 87 33 H 147/77 97 07/21/17 12:30 91 30 H 155/84 94 L 07/21/17 12:15 94 35 H 158/81 100 07/21/17 12:07 97 F L 95 32 H 100 07/21/17 11:12 112 H 07/21/17 11:00 116 H 07/21/17 07:35 84 16 07/21/17 07:17 94 L 07/21/17 07:15 92 07/21/17 07:05 92 07/21/17 07:00 98.1 F 84 16 113/58 99 07/21/17 01:14 100.2 F H 92 24 100/59 96 07/21/17 00:19 96 28 H 140/71 96 07/20/17 23:41 86 28 H 151/86 95 07/20/17 22:50 98.9 F 101 H 36 H 182/95 99 Intake and Output 07/20/17 07/21/17 07/21/17 22:59 06:59 14:59 Intake Total 120 120 Output Total 200 Balance 120 -80 Intake: Oral 120 120 Output: Urine 200 Other: Voiding Method Bedpan Bedside Commode # Voids 2 Weight 49.442 kg 47 kg 47 kg Patient Weight 07/22/17 06:59 Weight 47 kg GENERAL: This is a 61-year-old female who remains lethargic at the time of examination. HEENT: Head is atraumatic, normocephalic. Pupils are equal, round, and reactive to light. Sclerae anicteric. Conjunctivae are clear. Mucus membranes of the mouth are moist. Neck is supple. RESPIRATORY: Bipap noted. Lungs equal bilaterally. Decreased air exchange. Lungs with scattered rhonchi and rales to the bases. CARDIOVASCULAR: Regular rate and rhythm. S1 and S2 noted. No JVD noted. No S3 or S4 noted. GASTROINTESTINAL: No distention noted. Abdomen soft and round. Normal active bowel sounds auscultated x 4 quadrants. No pain or tenderness noted upon palpation. INTEGUMENTARY: No cyanosis. No jaundice. No rashes noted. No cellulitis noted. EXTREMITIES: 2+ peripheral pulses. No evidence of peripheral edema. No calf tenderness noted. NEUROLOGIC: Unable to assess secondary to lethargy PSYCHIATRIC: Very lethargic, unresponsive. Will withdraw to painful stimuli. Results CBC & Chem 7: 07/21/17 10:08 07/21/17 10:08 Labs: Abnormal Lab Results - Last 24 Hours (Table) 07/20/17 07/20/17 07/20/17 Range/Units 23:30 23:30 23:30 WBC 12.4 H (3.8-10.6) k/uL Hgb 10.4 L (11.4-16.0) gm/dL Hct (34.0-46.0) % MCH 23.5 L (25.0-35.0) pg MCHC 29.1 L (31.0-37.0) g/dL RDW 15.9 H (11.5-15.5) % Neutrophils # 9.1 H (1.3-7.7) k/uL Lymphocytes # (1.0-4.8) k/uL ABG pH (7.35-7.45) ABG pCO2 (35-45) mmHg ABG pO2 (83-108) mmHg ABG HCO3 (21-25) mmol/L ABG Total CO2 (19-24) mmol/L ABG O2 Saturation (94-97) % Chloride 93 L (98-107) mmol/L Carbon Dioxide 33 H (22-30) mmol/L Creatinine (0.52-1.04) mg/dL Glucose 135 H (74-99) mg/dL POC Glucose (mg/dL) (75-99) mg/dL Calcium (8.4-10.2) mg/dL AST 84 H (14-36) U/L ALT 56 H (9-52) U/L Total Creatine Kinase 143 H (30-135) U/L CK-MB (CK-2) 4.4 H* (0.0-2.4) ng/mL Urine Protein (Negative) Urine Mucus (None) /hpf 07/21/17 07/21/17 07/21/17 Range/Units 10:08 10:08 11:30 WBC (3.8-10.6) k/uL Hgb 8.9 L D (11.4-16.0) gm/dL Hct 31.9 L (34.0-46.0) % MCH 23.0 L (25.0-35.0) pg MCHC 28.0 L (31.0-37.0) g/dL RDW 15.6 H (11.5-15.5) % Neutrophils # (1.3-7.7) k/uL Lymphocytes # 0.5 L (1.0-4.8) k/uL ABG pH (7.35-7.45) ABG pCO2 (35-45) mmHg ABG pO2 (83-108) mmHg ABG HCO3 (21-25) mmol/L ABG Total CO2 (19-24) mmol/L ABG O2 Saturation (94-97) % Chloride (98-107) mmol/L Carbon Dioxide (22-30) mmol/L Creatinine 0.50 L (0.52-1.04) mg/dL Glucose 130 H (74-99) mg/dL POC Glucose (mg/dL) 339 H (75-99) mg/dL Calcium 7.9 L (8.4-10.2) mg/dL AST (14-36) U/L ALT (9-52) U/L Total Creatine Kinase (30-135) U/L CK-MB (CK-2) (0.0-2.4) ng/mL Urine Protein (Negative) Urine Mucus (None) /hpf 07/21/17 07/21/17 Range/Units 12:24 12:42 WBC (3.8-10.6) k/uL Hgb (11.4-16.0) gm/dL Hct (34.0-46.0) % MCH (25.0-35.0) pg MCHC (31.0-37.0) g/dL RDW (11.5-15.5) % Neutrophils # (1.3-7.7) k/uL Lymphocytes # (1.0-4.8) k/uL ABG pH 7.16 L* (7.35-7.45) ABG pCO2 90 H* (35-45) mmHg ABG pO2 157 H (83-108) mmHg ABG HCO3 31 H (21-25) mmol/L ABG Total CO2 31 H (19-24) mmol/L ABG O2 Saturation 99.0 H (94-97) % Chloride (98-107) mmol/L Carbon Dioxide (22-30) mmol/L Creatinine (0.52-1.04) mg/dL Glucose (74-99) mg/dL POC Glucose (mg/dL) (75-99) mg/dL Calcium (8.4-10.2) mg/dL AST (14-36) U/L ALT (9-52) U/L Total Creatine Kinase (30-135) U/L CK-MB (CK-2) (0.0-2.4) ng/mL Urine Protein 2+ H (Negative) Urine Mucus Rare H (None) /hpf Thrombosis Risk Factor Assmnt - Choose All That Apply Any of the Below Risk Factors Present?: Yes Each Factor Represents 1 point: Abnormal pulmonary function (COPD), Swollen legs (current) Other Risk Factors: Yes Each Risk Factor Represents 2 Points: Age 61-74 years Thrombosis Risk Factor Assessment Total Risk Factor Score: 4 Thrombosis Risk Factor Assessment Level: Moderate Risk Assessment and Plan Plan: ASSESSMENT: Acute exacerbation of chronic obstructive pulmonary disease Acute exacerbation of diastolic congestive heart failure, EF 50-55% from echo Acute hypoxic and hypercapnic respiratory failure, CO2 90, requiring Bipap, secondary to COPD exacerbation and fluid overload with pulmonary edema History of coronary disease with previous myocardial infarction History of CABG 4 with mitral and tricuspid valve surgery in November 2016 Pulmonary hypertension Chronic hypoxic respiratory failure, requiring home oxygen Gastroesophageal reflux disease Hyperlipidemia Anxiety, unspecified Depression, unspecified Nicotine dependence, patient is a current everyday cigarette smoker PLAN: Pulmonary on consult. Appreciate recommendations and input Continue IV Solu-Medrol 60 mg every 6 hours Zosyn started per pulmonary Repeat chest xray in AM Consult cardiology Lasix 40 mg IV every 12 hours Capillary blood glucose accu-checks Q4 hours NovoLog sliding scale insulin coverage Q4 hours Home meds as appropriate Monitor labs. Recheck in AM GI prophylaxis: Protonix 40 mg IV Daily DVT prophylaxis: Heparin 5000 units subcu every 8 hours Monitor vital signs and address as appropriate Discharge planning: Patient to return home when stable Further recommendations pending patient's course Nurse practitioner note has been reviewed by physician. Signing provider agrees with the documented findings, assessment, and plan of care.
[2017-07-21] MEDS: POTASSIUM CHLORIDE 10 MEQ in WATER FOR INJECTION 1 100ML.BAG IVPB SCH ×2 (16:57→19:14)
[2017-07-21] MEDS: HEPARIN SODIUM,PORCINE 5,000 UNIT/ML 1 ML VIAL SQ SCH (16:57)
[2017-07-21 19:59] LABS: Glucose,Whole Blood 141 mg/dL (75-99)
[2017-07-21] MEDS ORDERED: BUDESONIDE 1 MG/2 ML NEBU INHALATION SCH (20:00)
[2017-07-21] MEDS ORDERED: SYMBICORT 160-4.5 MCG INHALER INHALATION SCH (20:00)
[2017-07-21] MEDS ORDERED: FORMOTEROL FUMARATE 20 MCG/2 ML NEBU INHALATION SCH (20:00)
[2017-07-21] MEDS: AMITRIPTYLINE HCL 25 MG TAB PO SCH ×2 (21:00→21:11)
[2017-07-21] MEDS: FUROSEMIDE 10 MG/ML 4 ML VIAL IV SCH (21:11)
[2017-07-21] MEDS: PARoxetine 10 MG TAB PO SCH (21:11)
[2017-07-21 23:33] LABS: Hemoglobin A1C 6.4 % (4.0-6.0)
[2017-07-21 23:53] LABS: Glucose,Whole Blood 127 mg/dL (75-99)
[2017-07-22] MEDS: INSULIN ASPART 100 UNIT/ML 1 ML 10 ML VIAL SQ SCH ×6 (00:15→20:27)
[2017-07-22] MEDS: methylPREDNISolone SOD SUCCI 125 MG/2 ML VIAL IV SCH ×2 (00:16→05:57)
[2017-07-22] MEDS: HEPARIN SODIUM,PORCINE 5,000 UNIT/ML 1 ML VIAL SQ SCH ×3 (00:16→17:30)
[2017-07-22] MEDS: PIPERACILLIN-TAZOBACTAM 3.375 GM in DEXTROSE/WATER 1 50ML.BAG IVPB SCH (00:16)
[2017-07-22 04:22] LABS: Glucose,Whole Blood 136 mg/dL (75-99)
[2017-07-22 06:03] LABS: Anion Gap 11 mmol/L; Blood Urea Nitrogen 24 mg/dL (7-17); Calcium 8.5 mg/dL (8.4-10.2); Carbon Dioxide 30 mmol/L (22-30); Chloride 93 mmol/L (98-107); Glucose 120 mg/dL (74-99); Magnesium 1.8 mg/dL (1.6-2.3); Phosphorus 3.8 mg/dL (2.5-4.5); Potassium 3.6 mmol/L (3.5-5.1); Sodium 134 mmol/L (137-145)
[2017-07-22 06:39] LABS: HCT 33.4 % (34.0-46.0); Hypochromasia Marked; MCHC 29.9 g/dL (31.0-37.0); MCV 80.3 fL (80.0-100.0); Mean Platelet Volume 6.4; Platelet Count 412 k/uL (150-450); Poikilocytosis Slight; RBC 4.16 m/uL (3.80-5.40); RDW 15.4 % (11.5-15.5)
[2017-07-22] MEDS ORDERED: POTASSIUM CHLORIDE ER 20 MEQ TAB.ER PO ONE (07:00)
--- NOTE | 2017-07-22 07:12 | P.PN ---
Subjective Progress Note Date: 07/22/17 Principal diagnosis: COPD exacerbation Progress note dated 07/22/2017 61-year-old female who we saw yesterday. The patient came into the emergency room with complaints of shortness of breath. She apparently had quite a bit of distress in the emergency room she was admitted to the fourth floor. She has a history of significant severe COPD on home oxygen therapy cardiomyopathy and heart failure CAD previous history of myocardial infarction. The patient was transferred to the ICU because of increasing respiratory distress. The patient was placed on BiPAP at 12 and 4 and FiO2 was weaned down to 35%. She's doing much better. She was also given some Lasix. Steroids were given. We feel like her respiratory distress in part related to excessive use of narcotics and Neurontin. We stopped all of that when she came to the ICU. She is doing much better. Feeling much better. She sees my partner for her lung disease. Her ejection fraction is only 20%. She does have severe pulmonary hypertension as well. Objective - Vital Signs Vital signs: Vital Signs Temp 98.8 F 07/22/17 00:00 Pulse 74 07/22/17 06:00 Resp 20 07/22/17 06:00 BP 116/70 07/22/17 06:00 Pulse Ox 93 L 07/22/17 06:00 Intake & Output 07/21/17 07/22/17 07/22/17 18:59 06:59 18:59 Intake Total 350 990 Output Total 1900 3000 Balance -1549 Weight 47 kg 44.1 kg Intake: IV 160 0.9 NaCl 1000ml bag @ 10 110 ml/hr Piperacillin-Tazobactam 3 50 .375 gm In Dextrose/Water 1 50ml.bag @ 12.5 mls/hr IVPB Q8HR [facility] Rx#: [id number] Intake, IV Titration 230 Amount Potassium Chloride 10 meq 200 In Water For Injection 1 100ml.bag @ 100 mls/hr IVPB Q1H [facility] Rx#: [id number] Sodium Chloride 0.9% 1, 30 000 ml @ 20 mls/hr IV . Q24H [facility] Rx#:[id number] Oral 120 180 Tube Feeding 650 Output: Urine 1900 3000 Other: Voiding Method Indwelling Catheter Indwelling Catheter # Voids 2 - Exam No acute distress, oriented 3. On nasal O2 at 3 L. Mildly dyspneic HEENT examination is grossly unremarkable. Mucous membranes are moist. No oral lesions. Neck supple. Full range of motion. No adenopathy thyromegaly or neck vein distention. Cardiovascular examination reveals regular rhythm rate. S1-S2 normal. No S3 or S4. No discernible murmur noted. Lungs reveal diminished breath sounds. Breath sounds are equal bilaterally. This some expiratory wheezes and rhonchi. There is prolongation on forced maneuver. No crackles. Abdomen soft bowel sounds are heard. No masses or tenderness. Extremities are intact. No cyanosis clubbing or edema. Skin is without rash or lesion. Neurologic examination is brief but nonfocal. - Labs CBC & Chem 7: 07/22/17 05:20 07/22/17 05:20 Labs: Abnormal Lab Results - Last 24 Hours (Table) 07/21/17 07/21/17 07/21/17 Range/Units 10:08 10:08 11:30 WBC (3.8-10.6) k/uL Hgb 8.9 L D (11.4-16.0) gm/dL Hct 31.9 L (34.0-46.0) % MCH 23.0 L (25.0-35.0) pg MCHC 28.0 L (31.0-37.0) g/dL RDW 15.6 H (11.5-15.5) % Lymphocytes # 0.5 L (1.0-4.8) k/uL ABG pH (7.35-7.45) ABG pCO2 (35-45) mmHg ABG pO2 (83-108) mmHg ABG HCO3 (21-25) mmol/L ABG Total CO2 (19-24) mmol/L ABG O2 Saturation (94-97) % Sodium (137-145) mmol/L Chloride (98-107) mmol/L BUN (7-17) mg/dL Creatinine 0.50 L (0.52-1.04) mg/dL Glucose 130 H (74-99) mg/dL POC Glucose (mg/dL) 339 H (75-99) mg/dL Calcium 7.9 L (8.4-10.2) mg/dL Urine Protein (Negative) Urine Mucus (None) /hpf 07/21/17 07/21/17 07/21/17 Range/Units 12:24 12:42 15:31 WBC (3.8-10.6) k/uL Hgb (11.4-16.0) gm/dL Hct (34.0-46.0) % MCH (25.0-35.0) pg MCHC (31.0-37.0) g/dL RDW (11.5-15.5) % Lymphocytes # (1.0-4.8) k/uL ABG pH 7.16 L* (7.35-7.45) ABG pCO2 90 H* (35-45) mmHg ABG pO2 157 H (83-108) mmHg ABG HCO3 31 H (21-25) mmol/L ABG Total CO2 31 H (19-24) mmol/L ABG O2 Saturation 99.0 H (94-97) % Sodium (137-145) mmol/L Chloride (98-107) mmol/L BUN (7-17) mg/dL Creatinine (0.52-1.04) mg/dL Glucose (74-99) mg/dL POC Glucose (mg/dL) 119 H (75-99) mg/dL Calcium (8.4-10.2) mg/dL Urine Protein 2+ H (Negative) Urine Mucus Rare H (None) /hpf 07/21/17 07/21/17 07/22/17 Range/Units 19:58 23:52 04:21 WBC (3.8-10.6) k/uL Hgb (11.4-16.0) gm/dL Hct (34.0-46.0) % MCH (25.0-35.0) pg MCHC (31.0-37.0) g/dL RDW (11.5-15.5) % Lymphocytes # (1.0-4.8) k/uL ABG pH (7.35-7.45) ABG pCO2 (35-45) mmHg ABG pO2 (83-108) mmHg ABG HCO3 (21-25) mmol/L ABG Total CO2 (19-24) mmol/L ABG O2 Saturation (94-97) % Sodium (137-145) mmol/L Chloride (98-107) mmol/L BUN (7-17) mg/dL Creatinine (0.52-1.04) mg/dL Glucose (74-99) mg/dL POC Glucose (mg/dL) 141 H 127 H 136 H (75-99) mg/dL Calcium (8.4-10.2) mg/dL Urine Protein (Negative) Urine Mucus (None) /hpf 07/22/17 07/22/17 Range/Units 05:20 05:20 WBC 17.0 H (3.8-10.6) k/uL Hgb 10.0 L (11.4-16.0) gm/dL Hct 33.4 L (34.0-46.0) % MCH 24.0 L (25.0-35.0) pg MCHC 29.9 L (31.0-37.0) g/dL RDW (11.5-15.5) % Lymphocytes # (1.0-4.8) k/uL ABG pH (7.35-7.45) ABG pCO2 (35-45) mmHg ABG pO2 (83-108) mmHg ABG HCO3 (21-25) mmol/L ABG Total CO2 (19-24) mmol/L ABG O2 Saturation (94-97) % Sodium 134 L (137-145) mmol/L Chloride 93 L (98-107) mmol/L BUN 24 H (7-17) mg/dL Creatinine (0.52-1.04) mg/dL Glucose 120 H (74-99) mg/dL POC Glucose (mg/dL) (75-99) mg/dL Calcium (8.4-10.2) mg/dL Urine Protein (Negative) Urine Mucus (None) /hpf Microbiology - Last 24 Hours (Table) 07/20/17 23:30 Blood Culture - Preliminary Blood No Growth after 24 hours 07/21/17 12:42 Urine Culture - Preliminary Urine,Catheterized Assessment and Plan Assessment: Assessment Impending respiratory failure secondary to COPD exacerbation, which is also, treated by fluid overload/CHF in a patient with severe cardiomyopathy History of CAD CHF Severe COPD Gastroesophageal reflux disease Hyperlipidemia Myocardial infarction Cardiomyopathy Breast cancer Osteoporosis Secondary pulmonary hypertension Plan: Plan dated 07/21/2017 The patient is here in the ICU. We'll get a blood gas. She was originally given Lasix. We'll make sure he is an appropriate medications including updrafts and steroids. The patient will be maintained on BiPAP. I did ask the respiratory therapist at titrate down the FiO2. Pending the blood gas, additional recommendations and suggestions are forthcoming. Prognosis is guarded. Plan dated 07/22/2017 The patient was maintained on BiPAP with settings of 12 and 4 and 35%. The patient is now on nasal O2 at 3 L and a saline IV at KVO. The patient was given DuoNeb every 4 while awake and when necessary and now his been switched to DuoNeb's 4 times a day and when necessary. She's also on Perforomist and Pulmicort 1 mg twice a day. She is on systemic corticosteroids and antibiotics. She's doing much better. She can be transferred out back to the general medical floor. We'll give her back time we'll offer pain. When she gets too much pain medication or other medications such as sedatives hypnotics narcotics and tranquilizers, she is a high risk for respiratory failure. Time with Patient: Greater than 30
[2017-07-22 07:20] LABS: Band Neutrophils % 11 %; Lymphocytes # (M) 1.02 k/uL (1.0-4.8); Monocytes # (M) 0.34 k/uL (0-1.0); Neutrophils % (M) 81 %; Nucleated Red Blood Cells 0 /100 WBC (0-0); Total Cells Counted 100
[2017-07-22 07:22] LABS: Polychromasia Present; Target Cells Present
[2017-07-22 07:25] LABS: Anisocytosis (M) Present
[2017-07-22] MEDS: IPRATROPIUM-ALBUTEROL 3 ML NEB INHALATION SCH ×4 (07:33→19:38)
--- NOTE | 2017-07-22 07:38 | XR ---
EXAMINATION TYPE: XR chest 1V DATE OF EXAM: 07/22/2017 COMPARISON: NONE INDICATION: COPD TECHNIQUE: Single frontal view of the chest is obtained. FINDINGS: The heart size is normal. The pulmonary vasculature is normal. This is diminished from comparison. The lungs are clear. Sternotomy wires are present from previous surgery. IMPRESSION: 1. Resolving pulmonary edema and/or vascular overload
[2017-07-22] MEDS: SYMBICORT 160-4.5 MCG INHALER INHALATION SCH ×2 (07:44→19:37)
[2017-07-22 07:59] LABS: Glucose,Whole Blood 150 mg/dL (75-99)
[2017-07-22] MEDS ORDERED: NON-FORMULARY DRUG (Tiotropium Bromide [Spiriva] 1 CAP) INHALATION SCH (08:00)
[2017-07-22] MEDS: AMOXIC-POT CLAV 875-125MG 1 EACH TAB PO SCH ×2 (08:50→20:26)
[2017-07-22] MEDS: CLOPIDOGREL 75 MG TAB PO SCH (08:51)
[2017-07-22] MEDS: ASPIRIN 81 MG PO SCH (08:51)
[2017-07-22] MEDS: buPROPion XL 150 MG TAB.ER.24H PO SCH (08:51)
[2017-07-22] MEDS: FUROSEMIDE 10 MG/ML 4 ML VIAL IV SCH ×2 (08:52→20:25)
[2017-07-22] MEDS: METOPROLOL SUCCINATE (ER) 50 MG TAB.ER.24H PO SCH (08:52)
[2017-07-22] MEDS: PARoxetine 10 MG TAB PO SCH ×2 (08:53→20:27)
[2017-07-22] MEDS: PRIMIDONE 50 MG TAB PO SCH ×3 (08:54→21:54)
[2017-07-22] MEDS: SPIRONOLACTONE 25 MG TAB PO SCH (08:54)
[2017-07-22] MEDS: PROPRANOLOL 40 MG TAB PO SCH ×2 (08:54→20:27)
[2017-07-22] MEDS: SODIUM CHLORIDE 0.9% 1,000 ML IV SCH (08:56)
[2017-07-22] MEDS ORDERED: PANTOPRAZOLE 40 MG/10 ML VIAL IVP SCH (09:00)
[2017-07-22] MEDS: MAGNESIUM SULFATE-D5W PMX 1 GM in DEXTROSE/WATER 1 100ML.BAG IVPB SCH ×2 (09:00→09:49)
[2017-07-22] MEDS ORDERED: HYDROcodone/APAP 5-325MG 1 EACH TAB PO PRN (09:27)
[2017-07-22] MEDS ORDERED: GABAPENTIN 100 MG CAP PO SCH (09:45)
--- NOTE | 2017-07-22 09:53 | P.CRDCN ---
History of Present Illness Consult date: 07/22/17 History of present illness: This is a 61-year-old female with history of previous bypass surgery and also stent placement and with previous history of cardiomyopathy is admitted to the hospital with complaints of increasing shortness of breath, weakness and pedal swelling. She was found to be respiratory distress and subsequently transferred to intensive care unit. She was seen by desk sergeant. Her chest x -ray showed evidence of severe COPD with some fluid overload and CHF. She was treated with IV Lasix and steroids. Patient has improved and feeling better now. She denied any chest pain. Her proBNP is elevated. She claims that she was given a new medication by the neurologist. She thinks that her symptoms could be related to the medication. She says after taking the medication for sedation. He fell and hit her head. Subsequent day, patient could not move and orbital diffuse weakness. Her chest x-ray today showed improvement in CHF findings. Clinically patient also looks better. We'll continue with current management. Echocardiogram will be obtained. Further recommendations depend upon clinical course. Past Medical History Past Medical History: Coronary Artery Disease (CAD), Cancer, Heart Failure, COPD , Eye Disorder, GERD/Reflux, Hyperlipidemia, Myocardial Infarction (NV), Respiratory Disorder, Vascular Disorder Additional Past Medical History / Comment(s): chronic hypoxic respiratory failure, CHF with an ejection fraction of less than 20% with significant degree of secondary pulmonary hypertension, ischemic cardiac myopathy, O2 1.5L/NC at , celiac disease,R breast cancer, osteoporosis, PAD, chronic pain L wrist ( previous injury with sx), L eye possible glaucoma, sinus problems. Last Myocardial Infarction Date:: 2014 History of Any Multi-Drug Resistant Organisms: None Reported Past Surgical History: Breast Surgery, Section, Coronary Bypass/CABG, Heart Catheterization With Stent, Orthopedic Surgery Additional Past Surgical History / Comment(s): 11/2016 CABG 4 vessel with mitral/ tricuspid surgery at [facility]-also had thoracentesis, R breast lumpectomy, L WRIST SX X3, D&C, 11-01-14 AORTAGRAM W/RUNOFF- CECILIO ILIAC STENTS, colonoscopy. Past Anesthesia/Blood Transfusion Reactions: No Reported Reaction Additional Past Anesthesia/Blood Transfusion Reaction / Comment(s): no hx blood transfusion Date of Last Stent Placement:: 2014 Past Psychological History: Anxiety, Depression Additional Psychological History / Comment(s): , lives in the family home with her . Used to live in the [place] area but moved here several years ago. No pets in the home at this point in time. She's an ongoing tobacco smoker. No history of injection drug use or other recreational drug use is related at this time. She has no experience. No international travel. Pt has Oxygen which she wears at 2L/NC HS. She drives. Smoking Status: Current every day smoker Past Alcohol Use History: None Reported Additional Past Alcohol Use History / Comment(s): Pt started smoking in 1968 and was up to 2 ppd. She is now down to 2-3 cigarettes a day. Past Drug Use History: None Reported - Past Family History Mother Family Medical History: Congestive Heart Failure (CHF), Diabetes Mellitus Additional Family Medical History / Comment(s): HEART ISSSUES. Mother of CHF at the age of 69yrs. Father Family Medical History: Blood Disorder Additional Family Medical History / Comment(s): HEMACHROMATOSIS. Father at the age of 69yrs from cirrhosis. He was not a drinker. Medications and Allergies Home Medications Medication Instructions Recorded Confirmed Type Gabapentin 400 mg PO TID 06/24/14 07/20/17 History Hydrocodone/Acetaminophen 1 tab PO Q8H PRN 06/24/14 07/20/17 History [Hydrocodone/Acetaminophen 10-325] Budesonide-Formot 160-4.5 Mcg 2 puff INHALATION RT-BID #1 inhaler 06/29/1407/20 Rx [Symbicort 160-4.5 Mcg Inhaler] Atorvastatin [Lipitor] 80 mg PO HS #30 tab 07/18/14 07/20/17 Rx Nitroglycerin Sl Tabs [Nitrostat] 0.4 mg SUBLINGUAL Q5M PRN #25 tab 07/18/1412/28 Rx Cyanocobalamin [Vitamin B-12] 500 mcg PO DAILY 07/21/14 07/20/17 History Multivitamins, Thera [Multivitamin 1 tab PO DAILY 07/21/14 07/20/17 History (formulary)] Primidone [Mysoline] 50 mg PO TID 10/29/14 07/20/17 History Aspirin 81 mg PO DAILY 09/17/15 07/20/17 History Tiotropium Union [Spiriva] 1 cap INHALATION RT-DAILY 09/17/15 07/20/17 History Vitamin E 1,000 unit PO DAILY 09/17/15 07/20/17 History Clopidogrel [Plavix] 75 mg PO DAILY #30 tab 08/06/16 07/20/17 Rx Albuterol Nebulized [Ventolin 2.5 mg INHALATION RT-Q4H PRN 12/04/16 07/20/17 History Nebulized] Calcium Carbonate [Calcium] 600 mg PO DAILY 12/04/16 07/20/17 History Magnesium Gluconate [Magonate] 1,000 mg PO DAILY 12/04/16 07/20/17 History Famotidine [Pepcid] 20 mg PO DAILY PRN 02/11/17 07/20/17 History Furosemide [Lasix] 40 mg PO BID 02/11/17 07/20/17 History Metoprolol Succinate (ER) [Toprol 50 mg PO DAILY 02/11/17 07/20/17 History XL] Spironolactone [Aldactone] 25 mg PO DAILY 02/11/17 07/20/17 History buPROPion XL [Wellbutrin XL] 75 mg PO DAILY 02/11/17 07/20/17 History PARoxetine HCL [Paxil] 30 mg PO BID 03/26/17 07/20/17 History Amitriptyline HCl [Elavil] 25 mg PO HS 05/11/17 07/20/17 History Propranolol [Inderal] 40 mg PO BID 06/27/17 07/20/17 History ALPRAZolam [Xanax] 0.5 mg PO TID PRN 07/20/17 07/20/17 History Zolpidem [Ambien] 10 mg PO HS PRN 07/20/17 07/20/17 History Allergies Allergy/AdvReac Type Severity Reaction Status Date / Time latanoprost Allergy Swelling Verified 07/20/17 23:14 Physical Exam Vitals: Vital Signs Temp Pulse Resp BP Pulse Ox 07/22/17 07:40 77 07/22/17 07:36 94 L 07/22/17 07:33 76 07/22/17 07:00 78 24 148/78 92 L 07/22/17 06:00 74 20 116/70 93 L 07/22/17 05:00 80 20 130/68 96 07/22/17 04:00 84 23 139/69 94 L 07/22/17 03:00 81 27 H 139/72 95 07/22/17 02:00 84 22 151/76 94 L 07/22/17 01:00 89 22 142/78 92 L 07/22/17 00:00 98.8 F 88 24 138/75 93 L 07/21/17 23:00 85 24 137/80 92 L 07/21/17 22:00 85 23 140/76 92 L 07/21/17 21:00 98.8 F 84 20 138/74 96 07/21/17 20:00 87 22 151/73 94 L 07/21/17 19:32 84 07/21/17 19:26 84 07/21/17 19:24 84 07/21/17 19:08 80 07/21/17 19:00 81 30 H 138/76 93 L 07/21/17 18:00 80 21 135/70 94 L 07/21/17 17:00 77 19 110/64 94 L 07/21/17 16:00 98.4 F 74 20 104/59 92 L 07/21/17 15:53 73 07/21/17 15:43 74 07/21/17 15:15 70 20 84/50 93 L 07/21/17 15:00 71 21 83/51 94 L 07/21/17 14:45 73 23 83/51 93 L 07/21/17 14:30 73 22 100/54 93 L 07/21/17 14:15 74 23 100/54 92 L 07/21/17 14:00 73 19 84/52 90 L 07/21/17 13:45 72 20 84/52 91 L 07/21/17 13:30 74 24 91/56 91 L 07/21/17 13:15 82 29 H 127/81 88 L 07/21/17 13:00 81 39 H 128/69 93 L 07/21/17 12:45 87 33 H 147/77 97 07/21/17 12:30 91 30 H 155/84 94 L 07/21/17 12:15 94 35 H 158/81 100 07/21/17 12:07 97 F L 95 32 H 100 07/21/17 11:12 112 H 07/21/17 11:00 116 H Intake and Output 07/21/17 07/22/17 07/22/17 22:59 06:59 14:59 Intake Total 530 680 10 Output Total 2319 2029 80 Balance -1790 -1350 -70 Intake: IV 30 130 10 0.9 NaCl 1000ml bag @ 10 30 80 10 ml/hr Piperacillin-Tazobactam 3 50 .375 gm In Dextrose/Water 1 50ml.bag @ 12.5 mls/hr IVPB Q8HR [facility] Rx#: [id number] Intake, IV Titration 220 Amount Potassium Chloride 10 meq 200 In Water For Injection 1 100ml.bag @ 100 mls/hr IVPB Q1H [facility] Rx#: [id number] Sodium Chloride 0.9% 1, 20 000 ml @ 20 mls/hr IV . Q24H [facility] Rx#:[id number] Oral 180 Tube Feeding 100 550 Output: Urine 2319 2029 80 Other: Voiding Method Indwelling Catheter Indwelling Catheter Weight 47 kg 44.1 kg GENERAL EXAM: Patient is alert and oriented and doesn't appear to be in any acute distress HEENT: Normocephalic. Normal reaction of pupils, equal size, normal range of extraocular motion. No erythema or exudates in the throat. NECK: No masses, no nuchal rigidity. CHEST: No chest wall deformity. LUNGS: Diminished air exchange HEART: S1 and S2 normal with no audible mumurs or gallops. Regular rhythm, femorals equal on both sides.. ABDOMEN: No hepatosplenomegaly, normal bowel sounds, no guarding or rigidity. SKIN: No rashes CENTRAL NERVOUS SYSTEM: No focal deficits. EXTREMITIES: No cyanosis, clubbing or edema. Results 07/22/17 05:20 07/22/17 05:20 CBC 07/21/17 07/22/17 Range/Units 10:08 05:20 WBC 7.5 17.0 H (3.8-10.6) k/uL RBC 3.88 4.16 (3.80-5.40) m/uL Hgb 8.9 L D 10.0 L (11.4-16.0) gm/dL Hct 31.9 L 33.4 L (34.0-46.0) % Plt Count 360 412 (150-450) k/uL Comprehensive Metabolic Panel 07/21/17 07/22/17 Range/Units 10:08 05:20 Sodium 140 134 L (137-145) mmol/L Potassium 3.8 3.6 (3.5-5.1) mmol/L Chloride 103 93 L (98-107) mmol/L Carbon Dioxide 28 30 (22-30) mmol/L BUN 11 24 H (7-17) mg/dL Creatinine 0.50 L 0.80 (0.52-1.04) mg/dL Glucose 130 H 120 H (74-99) mg/dL Calcium 7.9 L 8.5 (8.4-10.2) mg/dL Current Medications Generic Name Dose Route Start Last Admin Trade Name Freq PRN Reason Stop Dose Admin Acetaminophen 650 mg 07/21/17 01:12 07/21/17 01:56 Tylenol Tab PO 650 mg Q4HR PRN Administration Fever and/ or Pain Hydrocodone Bitart/Acetaminophen 1 each 07/22/17 09:27 [place]um 5-325 PO Q8HR PRN Pain Albuterol/Ipratropium 3 ml 07/21/17 08:00 07/22/17 07:33 Duoneb 0.5 Mg-3 Mg/3 Ml Soln INHALATION 3 ml RT-QID [facility] Administration Albuterol/Ipratropium 3 ml 07/21/17 12:48 Duoneb 0.5 Mg-3 Mg/3 Ml Soln INHALATION RT-Q2H PRN Shortness Of Breath Or Wheezing Alprazolam 0.25 mg 07/22/17 09:28 Xanax PO TID PRN Anxiety Amitriptyline HCl 25 mg 07/21/17 21:00 07/21/17 21:00 Elavil PO Not Given HS [facility] Amoxicillin/Clavulanate Potassium 1 each 07/22/17 09:00 07/22/17 08:50 Augmentin 875-125 PO 1 each Q12HR [facility] Administration Aspirin 81 mg 07/21/17 09:45 07/22/17 08:51 Aspirin PO 81 mg DAILY [facility] Administration Budesonide/Formoterol Fumarate 2 puff 07/22/17 08:00 07/22/17 07:44 Symbicort 160-4.5 Mcg Inhaler INHALATION 2 puff RT-BID [facility] Administration Bupropion HCl 75 mg 07/21/17 09:45 07/22/17 08:51 Wellbutrin Xl PO 75 mg DAILY [facility] Administration Clopidogrel Bisulfate 75 mg 07/21/17 09:45 07/22/17 08:51 Plavix PO 75 mg DAILY [facility] Administration Furosemide 40 mg 07/21/17 21:00 07/22/17 08:52 Lasix IV 40 mg Q12HR [facility] Administration Gabapentin 200 mg 07/22/17 09:45 Neurontin PO TID [facility] Heparin Sodium (Porcine) 5,000 unit 07/21/17 16:00 07/22/17 08:51 Heparin SQ 5,000 unit Q8HR [facility] Administration Sodium Chloride 1,000 mls @ 20 mls/hr 07/20/17 23:15 07/22/17 08:56 Saline 0.9% IV Not Given .Q24H [facility] Insulin Aspart 0 unit 07/22/17 07:30 07/22/17 08:56 Novolog SQ Not Given [facility] Protocol Magnesium Oxide 400 mg 07/23/17 12:00 Mag-Ox PO DAILY@1200 [facility] Methylprednisolone Sodium Succinate 40 mg 07/22/17 12:00 Solu-Medrol IV Q6HR [facility] Metoprolol Succinate 50 mg 07/21/17 09:45 07/22/17 08:52 Toprol Xl PO 50 mg DAILY [facility] Administration Naloxone HCl 0.2 mg 07/21/17 12:52 Narcan IV Q2M PRN Opioid Reversal Pantoprazole Sodium 40 mg 07/22/17 09:00 07/22/17 08:52 Protonix IVP 40 mg DAILY [facility] Administration Paroxetine HCl 30 mg 07/21/17 21:00 07/22/17 08:53 Paxil PO 30 mg BID [facility] Administration Primidone 50 mg 07/21/17 09:45 07/22/17 08:54 Mysoline PO 50 mg TID [facility] Administration Propranolol HCl 40 mg 07/21/17 09:45 07/22/17 08:54 Inderal PO 40 mg BID [facility] Administration Spironolactone 25 mg 07/21/17 09:45 07/22/17 08:54 Aldactone PO 25 mg DAILY [facility] Administration Intake and Output 07/21/17 07/22/17 07/22/17 22:59 06:59 14:59 Intake Total 530 680 10 Output Total 2320 2030 80 Balance -1790 -1350 -70 Intake: IV 30 130 10 0.9 NaCl 1000ml bag @ 10 30 80 10 ml/hr Piperacillin-Tazobactam 3 50 .375 gm In Dextrose/Water 1 50ml.bag @ 12.5 mls/hr IVPB Q8HR [facility] Rx#: [id number] Intake, IV Titration 220 Amount Potassium Chloride 10 meq 200 In Water For Injection 1 100ml.bag @ 100 mls/hr IVPB Q1H [facility] Rx#: [id number] Sodium Chloride 0.9% 1, 20 000 ml @ 20 mls/hr IV . Q24H [facility] Rx#:[id number] Oral 180 Tube Feeding 100 550 Output: Urine 2320 2030 80 Other: Voiding Method Indwelling Catheter Indwelling Catheter Weight 47 kg 44.1 kg 07/22/17 05:20 07/22/17 05:20 EKG Interpretations (text) Sinus rhythm with possible old anteroseptal [place] and left axis deviation Assessment and Plan (1) CAD (coronary artery disease) Current Visit: Yes Status: Acute Code(s): I25.10 - ATHSCL HEART DISEASE OF [place] CORONARY ARTERY W/O ANG PCTRS SNOMED Code(s): 32518005 (2) Congestive heart failure Current Visit: No Status: Acute Code(s): I50.9 - HEART FAILURE, UNSPECIFIED SNOMED Code(s): 89303213 (3) Hyperlipidemia Current Visit: No Status: Chronic Code(s): E78.5 - HYPERLIPIDEMIA, UNSPECIFIED SNOMED Code(s): 50093366 (4) Hypertension Current Visit: No Status: Chronic Code(s): I10 - ESSENTIAL (PRIMARY) HYPERTENSION SNOMED Code(s): 15059081 Plan: This patient is admitted with shortness of breath and respiratory failure. Patient has combination of COPD and CHF. Patient has responded well and seems to be back to normal. I'll get an echocardiogram to assess LV function. We'll continue with current medical therapy including diuretics. Increase activity as tolerated. Further recommendations depend upon clinical course and findings on the echo.
[2017-07-22] MEDS: ALPRAZolam 0.25 MG TAB PO PRN (10:38)
--- NOTE | 2017-07-22 11:37 | P.PN ---
Subjective Progress Note Date: 07/22/17 61-year-old female who presented to the emergency room with a chief complaint of shortness of breath. Patient states she has been progressively short of breath over the last 24 hours. She denied chest pain or pressure. Denies cough or sputum production. Denies fever or chills. Denies nausea or vomiting. The patient was recently hospitalized from 11/25/2017 until 06/29/2017 secondary to mental status changes, suspected pneumonia, acute kidney injury, and congestive heart failure. The patient has a history of coronary artery disease, congestive heart failure, chronic obstructive pulmonary disease, gastro-esophageal reflux disease, hyperlipidemia, myocardial infarction, and anxiety. The patient underwent a CABG 4 vessel with mitral valve and tricuspid valve surgery in November 2016. She is a current everyday cigarette smoker and states she is smoking about 5 or 6 cigarettes a day. She denies alcohol use. Echocardiogram from May 2017 reveals an ejection fraction of 50-55%, posterior and inferior hypokinesis, mild mitral regurgitation, mild tricuspid regurgitation, mild pulmonary hypertension with RVSP of 45.35. Her previous echocardiogram was completed in November 2016 and revealed an ejection fraction of 20%. Chest x-ray: Interstitial fibrotic changes, atypical mild heart failure may be present Laboratory data: WBC 12.4. Hemoglobin 10.4. Platelet count 424. Sodium 139. Potassium 3.5. BUN 16. Creatinine 0.70. Glucose 135. Magnesium 2.1. AST 84 and ALT 56 Troponins 0.030 BNP: 7400 Testing for influenza A and B was negative Urinalysis reveals: 2+ proteinuria but otherwise unremarkable The patient was admitted to the hospital under the care of Dr. Figueredo. The patient was seen and examined at the bedside early this morning. Patient was very lethargic but was arousable to verbal stimuli. Patient had stated she did not sleep much overnight. MAR shows that patient did receive IV ativan and IV morphine around midnight. Spoke with nursing who states patient did not receive any narcotics this morning. Patient was maintaining oxygen saturation greater than 92%. Vital signs were stable at time. Patient was evaluated last admission for chronic liver disease due to elevated liver enzymes. Ammonia level was ordered to rule out hepatic encephalopathy. Ammonia level was within normal limits at 21. Nurse practitioner was called by nursing staff that patient very suddenly became short of breath, tachypneic, and was foaming at the mouth. Prior to this , nursing states patient was more awake than this morning and had been up twice to the bedside commonde to urinate. Rapid response was called. Patient was placed on Bipap. Chest xray was completed revealing pulmonary edema and volume overload. Lasix 40mg IV was ordered. Patient remains on IV steroids as well. ABG was completed revealing pH 7.16, CO2 90, pO2 157, bicarb 31. Patient was transferred to the intensive care unit. Consult was placed for pulmonary. Dr. Figueredo evaluated patient in the intensive care unit. Dr. Figueredo spoke with two family members present at the bedside. 07/22/2017 Patient seen and examined in the intensive care unit. Patient is awake and alert. She is off bipap and on 3L NC. Blood pressure has been stable. Heart rate in the 70-80s. Patient is anxious and is complaining of pain. Patient is requesting her norco, xanax, and neurotin. Patient has orders to transfer to general medical floor. Objective - Vital Signs Vital signs: Vital Signs Temp 98.8 F 07/22/17 00:00 Pulse 81 07/22/17 10:58 Resp 24 07/22/17 07:00 BP 148/78 07/22/17 07:00 Pulse Ox 94 L 07/22/17 07:36 Intake & Output 07/21/17 07/22/17 07/22/17 18:59 06:59 18:59 Intake Total 350 990 10 Output Total 1900 3000 80 Balance -1550 -2009 -70 Weight 47 kg 44.1 kg Intake: IV 160 10 0.9 NaCl 1000ml bag @ 10 110 10 ml/hr Piperacillin-Tazobactam 3 50 .375 gm In Dextrose/Water 1 50ml.bag @ 12.5 mls/hr IVPB Q8HR AGUILA Rx#: [id number] Intake, IV Titration 230 Amount Potassium Chloride 10 meq 200 In Water For Injection 1 100ml.bag @ 100 mls/hr IVPB Q1H AGUILA Rx#: [id number] Sodium Chloride 0.9% 1, 30 000 ml @ 20 mls/hr IV . Q24H AGUILA Rx#:[id number] Oral 120 180 Tube Feeding 650 Output: Urine 1900 3000 80 Other: Voiding Method Indwelling Catheter Indwelling Catheter # Voids 2 - Exam GENERAL: This is a 61-year-old female who is anxious at the time of examination. Appears in no acute distress. HEENT: Head is atraumatic, normocephalic. Pupils are equal, round, and reactive to light. Sclerae anicteric. Conjunctivae are clear. Mucus membranes of the mouth are moist. Neck is supple. RESPIRATORY: Lungs equal bilaterally. Improved air exchange. Lungs diminished with scattered rhonchi. CARDIOVASCULAR: Regular rate and rhythm. S1 and S2 noted. No JVD noted. No S3 or S4 noted. GASTROINTESTINAL: No distention noted. Abdomen soft and round. Normal active bowel sounds auscultated x 4 quadrants. No pain or tenderness noted upon palpation. INTEGUMENTARY: No cyanosis. No jaundice. No rashes noted. No cellulitis noted. EXTREMITIES: 2+ peripheral pulses. No evidence of peripheral edema. No calf tenderness noted. NEUROLOGIC: Cranial nerves intact. PSYCHIATRIC: Awake and alert. Anxious. - Labs CBC & Chem 7: 07/22/17 05:20 07/22/17 05:20 Labs: Abnormal Lab Results - Last 24 Hours (Table) 07/21/17 07/21/17 07/21/17 Range/Units 10:08 10:08 10:08 WBC (3.8-10.6) k/uL Hgb 8.9 L D (11.4-16.0) gm/dL Hct 31.9 L (34.0-46.0) % MCH 23.0 L (25.0-35.0) pg MCHC 28.0 L (31.0-37.0) g/dL RDW 15.6 H (11.5-15.5) % Neutrophils # (Manual) (1.3-7.7) k/uL Lymphocytes # 0.5 L (1.0-4.8) k/uL ABG pH (7.35-7.45) ABG pCO2 (35-45) mmHg ABG pO2 (83-108) mmHg ABG HCO3 (21-25) mmol/L ABG Total CO2 (19-24) mmol/L ABG O2 Saturation (94-97) % Sodium (137-145) mmol/L Chloride (98-107) mmol/L BUN (7-17) mg/dL Creatinine 0.50 L (0.52-1.04) mg/dL Glucose 130 H (74-99) mg/dL POC Glucose (mg/dL) (75-99) mg/dL Hemoglobin A1c 6.4 H (4.0-6.0) % Calcium 7.9 L (8.4-10.2) mg/dL Urine Protein (Negative) Urine Mucus (None) /hpf 07/21/17 07/21/17 07/21/17 Range/Units 11:30 12:24 12:42 WBC (3.8-10.6) k/uL Hgb (11.4-16.0) gm/dL Hct (34.0-46.0) % MCH (25.0-35.0) pg MCHC (31.0-37.0) g/dL RDW (11.5-15.5) % Neutrophils # (Manual) (1.3-7.7) k/uL Lymphocytes # (1.0-4.8) k/uL ABG pH 7.16 L* (7.35-7.45) ABG pCO2 90 H* (35-45) mmHg ABG pO2 157 H (83-108) mmHg ABG HCO3 31 H (21-25) mmol/L ABG Total CO2 31 H (19-24) mmol/L ABG O2 Saturation 99.0 H (94-97) % Sodium (137-145) mmol/L Chloride (98-107) mmol/L BUN (7-17) mg/dL Creatinine (0.52-1.04) mg/dL Glucose (74-99) mg/dL POC Glucose (mg/dL) 339 H (75-99) mg/dL Hemoglobin A1c (4.0-6.0) % Calcium (8.4-10.2) mg/dL Urine Protein 2+ H (Negative) Urine Mucus Rare H (None) /hpf 07/21/17 07/21/17 07/21/17 Range/Units 15:31 19:58 23:52 WBC (3.8-10.6) k/uL Hgb (11.4-16.0) gm/dL Hct (34.0-46.0) % MCH (25.0-35.0) pg MCHC (31.0-37.0) g/dL RDW (11.5-15.5) % Neutrophils # (Manual) (1.3-7.7) k/uL Lymphocytes # (1.0-4.8) k/uL ABG pH (7.35-7.45) ABG pCO2 (35-45) mmHg ABG pO2 (83-108) mmHg ABG HCO3 (21-25) mmol/L ABG Total CO2 (19-24) mmol/L ABG O2 Saturation (94-97) % Sodium (137-145) mmol/L Chloride (98-107) mmol/L BUN (7-17) mg/dL Creatinine (0.52-1.04) mg/dL Glucose (74-99) mg/dL POC Glucose (mg/dL) 119 H 141 H 127 H (75-99) mg/dL Hemoglobin A1c (4.0-6.0) % Calcium (8.4-10.2) mg/dL Urine Protein (Negative) Urine Mucus (None) /hpf 07/22/17 07/22/17 07/22/17 Range/Units 04:21 05:20 05:20 WBC 17.0 H (3.8-10.6) k/uL Hgb 10.0 L (11.4-16.0) gm/dL Hct 33.4 L (34.0-46.0) % MCH 24.0 L (25.0-35.0) pg MCHC 29.9 L (31.0-37.0) g/dL RDW (11.5-15.5) % Neutrophils # (Manual) 15.60 H (1.3-7.7) k/uL Lymphocytes # (1.0-4.8) k/uL ABG pH (7.35-7.45) ABG pCO2 (35-45) mmHg ABG pO2 (83-108) mmHg ABG HCO3 (21-25) mmol/L ABG Total CO2 (19-24) mmol/L ABG O2 Saturation (94-97) % Sodium 134 L (137-145) mmol/L Chloride 93 L (98-107) mmol/L BUN 24 H (7-17) mg/dL Creatinine (0.52-1.04) mg/dL Glucose 120 H (74-99) mg/dL POC Glucose (mg/dL) 136 H (75-99) mg/dL Hemoglobin A1c (4.0-6.0) % Calcium (8.4-10.2) mg/dL Urine Protein (Negative) Urine Mucus (None) /hpf 07/22/17 Range/Units 07:56 WBC (3.8-10.6) k/uL Hgb (11.4-16.0) gm/dL Hct (34.0-46.0) % MCH (25.0-35.0) pg MCHC (31.0-37.0) g/dL RDW (11.5-15.5) % Neutrophils # (Manual) (1.3-7.7) k/uL Lymphocytes # (1.0-4.8) k/uL ABG pH (7.35-7.45) ABG pCO2 (35-45) mmHg ABG pO2 (83-108) mmHg ABG HCO3 (21-25) mmol/L ABG Total CO2 (19-24) mmol/L ABG O2 Saturation (94-97) % Sodium (137-145) mmol/L Chloride (98-107) mmol/L BUN (7-17) mg/dL Creatinine (0.52-1.04) mg/dL Glucose (74-99) mg/dL POC Glucose (mg/dL) 150 H (75-99) mg/dL Hemoglobin A1c (4.0-6.0) % Calcium (8.4-10.2) mg/dL Urine Protein (Negative) Urine Mucus (None) /hpf Microbiology - Last 24 Hours (Table) 07/20/17 23:30 Blood Culture - Preliminary Blood No Growth after 24 hours 07/21/17 12:42 Urine Culture - Preliminary Urine,Catheterized Assessment and Plan Plan: ASSESSMENT: Acute exacerbation of chronic obstructive pulmonary disease Acute exacerbation of diastolic congestive heart failure, EF 50-55% from echo Acute hypoxic and hypercapnic respiratory failure, CO2 90, requiring Bipap, secondary to COPD exacerbation and fluid overload with pulmonary edema History of coronary disease with previous myocardial infarction History of CABG 4 with mitral and tricuspid valve surgery in November 2016 Pulmonary hypertension Chronic hypoxic respiratory failure, requiring home oxygen Gastroesophageal reflux disease Hyperlipidemia Anxiety, unspecified Depression, unspecified Nicotine dependence, patient is a current everyday cigarette smoker PLAN: Spoke with Dr. Figueredo regarding patient request to restart medications. Patient may have 1 Nash 7.5mg every 6 hours PRN and Xanax 0.25mg TID PRN. Resume Neurotin 400mg TID per Dr. Figueredo NO IV pain medications or IV ativan Pulmonary on consult. Appreciate recommendations and input Continue IV Solu-Medrol 40 mg every 6 hours Continue Augmentin every 12 hours cardiology on consult. Appreciate recommendations and input Lasix 40 mg IV every 12 hours Capillary blood glucose accu-checks AC/HS NovoLog sliding scale insulin coverage AC/HS Home meds as appropriate Monitor labs. Recheck in AM GI prophylaxis: Protonix 40 mg IV Daily DVT prophylaxis: Heparin 5000 units subcu every 8 hours Monitor vital signs and address as appropriate Discharge planning: Patient to return home when stable Further recommendations pending patient's course Nurse practitioner note has been reviewed by physician. Signing provider agrees with the documented findings, assessment, and plan of care.
[2017-07-22 11:51] LABS: Glucose,Whole Blood 137 mg/dL (75-99)
[2017-07-22] MEDS: HYDROcodone/APAP 7.5-325MG 1 EACH TAB PO PRN ×2 (14:33→21:54)
[2017-07-22] MEDS: methylPREDNISolone SOD SUCCI 40 MG/ML 1 ML VIAL IV SCH ×2 (14:33→20:22)
[2017-07-22] MEDS: GABAPENTIN 400 MG CAP PO SCH ×2 (17:30→21:54)
[2017-07-22 20:25] LABS: Glucose,Whole Blood 133 mg/dL (75-99)
[2017-07-22] MEDS: AMITRIPTYLINE HCL 25 MG TAB PO SCH (20:26)
[2017-07-23] MEDS: SODIUM CHLORIDE 0.9% 1,000 ML IV SCH ×2 (00:14→23:17)
[2017-07-23] MEDS: methylPREDNISolone SOD SUCCI 40 MG/ML 1 ML VIAL IV SCH ×5 (00:15→23:16)
[2017-07-23] MEDS: HEPARIN SODIUM,PORCINE 5,000 UNIT/ML 1 ML VIAL SQ SCH ×4 (00:18→23:17)
[2017-07-23] MEDS: ALPRAZolam 0.25 MG TAB PO PRN ×2 (00:22→23:16)
[2017-07-23 07:29] LABS: Basophils % (A) 0 %; Eosinophils % (A) 0 %; HCT 33.3 % (34.0-46.0); HGB 9.5 gm/dL (11.4-16.0); Hypochromasia Marked; Lymphocytes # (A) 1.2 k/uL (1.0-4.8); Lymphocytes % (A) 8 %; MCH 22.7 pg (25.0-35.0); MCHC 28.7 g/dL (31.0-37.0); MCV 79.2 fL (80.0-100.0); Mean Platelet Volume 6.9; Monocytes # (A) 0.9 k/uL (0-1.0); Monocytes % (A) 6 %; Neutrophils # (A) 13.2 k/uL (1.3-7.7); Neutrophils % (A) 85 %; Platelet Count 407 k/uL (150-450); Poikilocytosis Slight; RDW 15.8 % (11.5-15.5); WBC 15.5 k/uL (3.8-10.6)
[2017-07-23 07:46] LABS: Anion Gap 7 mmol/L; Blood Urea Nitrogen 22 mg/dL (7-17); Calcium 8.5 mg/dL (8.4-10.2); Carbon Dioxide 34 mmol/L (22-30); Chloride 94 mmol/L (98-107); Glucose 127 mg/dL (74-99); Phosphorus 3.9 mg/dL (2.5-4.5); Potassium 3.9 mmol/L (3.5-5.1); Sodium 135 mmol/L (137-145)
--- NOTE | 2017-07-23 07:46 | XR ---
EXAMINATION TYPE: XR chest 1V DATE OF EXAM: 07/23/2017 HISTORY: copd. REFERENCE: Previous study dated 07/22/2017. FINDINGS: There has been a midline sternotomy. The lungs are overinflated. The heart is mildly enlarged. There are increased interstitial markings. These appear chronic. Pleural spaces are clear. IMPRESSION: 1. COPD. 2. MILD CARDIOMEGALY. 3. CHRONIC INTERSTITIAL CHANGE.
[2017-07-23] MEDS: PANTOPRAZOLE 40 MG TABLET PO SCH (08:12)
[2017-07-23] MEDS: AMOXIC-POT CLAV 875-125MG 1 EACH TAB PO SCH ×2 (08:12→20:02)
[2017-07-23] MEDS: ASPIRIN 81 MG PO SCH (08:13)
[2017-07-23] MEDS: CLOPIDOGREL 75 MG TAB PO SCH (08:14)
[2017-07-23] MEDS: buPROPion XL 150 MG TAB.ER.24H PO SCH (08:14)
[2017-07-23] MEDS: FUROSEMIDE 10 MG/ML 4 ML VIAL IV SCH ×2 (08:15→20:02)
[2017-07-23] MEDS: GABAPENTIN 400 MG CAP PO SCH ×3 (08:16→21:39)
[2017-07-23] MEDS: METOPROLOL SUCCINATE (ER) 50 MG TAB.ER.24H PO SCH (08:16)
[2017-07-23] MEDS: PARoxetine 10 MG TAB PO SCH ×2 (08:16→20:02)
[2017-07-23] MEDS: PROPRANOLOL 40 MG TAB PO SCH ×2 (08:17→21:39)
[2017-07-23] MEDS: PRIMIDONE 50 MG TAB PO SCH ×3 (08:17→21:40)
[2017-07-23] MEDS: IPRATROPIUM-ALBUTEROL 3 ML NEB INHALATION SCH ×4 (08:18→20:51)
[2017-07-23] MEDS: SPIRONOLACTONE 25 MG TAB PO SCH (08:18)
[2017-07-23] MEDS: SYMBICORT 160-4.5 MCG INHALER INHALATION SCH ×2 (08:19→20:51)
[2017-07-23 08:32] LABS: Glucose,Whole Blood 146 mg/dL (75-99)
[2017-07-23] MEDS: INSULIN ASPART 100 UNIT/ML 1 ML 10 ML VIAL SQ SCH ×4 (09:34→21:03)
[2017-07-23 11:39] LABS: Glucose,Whole Blood 236 mg/dL (75-99)
[2017-07-23] MEDS: HYDROcodone/APAP 7.5-325MG 1 EACH TAB PO PRN ×3 (12:11→23:24)
[2017-07-23] MEDS: MAGNESIUM OXIDE 400 MG TAB PO SCH (12:13)
--- NOTE | 2017-07-23 13:16 | P.PN ---
Subjective Per Dr. Figueredo and nurse practitioner Brittni Gongora Progress Note Date: 07/22/17 61-year-old female who presented to the emergency room with a chief complaint of shortness of breath. Patient states she has been progressively short of breath over the last 24 hours. She denied chest pain or pressure. Denies cough or sputum production. Denies fever or chills. Denies nausea or vomiting. The patient was recently hospitalized from 11/25/2017 until 06/29/2017 secondary to mental status changes, suspected pneumonia, acute kidney injury, and congestive heart failure. The patient has a history of coronary artery disease, congestive heart failure, chronic obstructive pulmonary disease, gastro-esophageal reflux disease, hyperlipidemia, myocardial infarction, and anxiety. The patient underwent a CABG 4 vessel with mitral valve and tricuspid valve surgery in November 2016. She is a current everyday cigarette smoker and states she is smoking about 5 or 6 cigarettes a day. She denies alcohol use. Echocardiogram from May 2017 reveals an ejection fraction of 50-55%, posterior and inferior hypokinesis, mild mitral regurgitation, mild tricuspid regurgitation, mild pulmonary hypertension with RVSP of 45.35. Her previous echocardiogram was completed in November 2016 and revealed an ejection fraction of 20%. Chest x-ray: Interstitial fibrotic changes, atypical mild heart failure may be present Laboratory data: WBC 12.4. Hemoglobin 10.4. Platelet count 424. Sodium 139. Potassium 3.5. BUN 16. Creatinine 0.70. Glucose 135. Magnesium 2.1. AST 84 and ALT 56 Troponins 0.030 BNP: 7400 Testing for influenza A and B was negative Urinalysis reveals: 2+ proteinuria but otherwise unremarkable The patient was admitted to the hospital under the care of Dr. Figueredo. The patient was seen and examined at the bedside early this morning. Patient was very lethargic but was arousable to verbal stimuli. Patient had stated she did not sleep much overnight. MAR shows that patient did receive IV ativan and IV morphine around midnight. Spoke with nursing who states patient did not receive any narcotics this morning. Patient was maintaining oxygen saturation greater than 92%. Vital signs were stable at time. Patient was evaluated last admission for chronic liver disease due to elevated liver enzymes. Ammonia level was ordered to rule out hepatic encephalopathy. Ammonia level was within normal limits at 21. Nurse practitioner was called by nursing staff that patient very suddenly became short of breath, tachypneic, and was foaming at the mouth. Prior to this , nursing states patient was more awake than this morning and had been up twice to the bedside commonde to urinate. Rapid response was called. Patient was placed on Bipap. Chest xray was completed revealing pulmonary edema and volume overload. Lasix 40mg IV was ordered. Patient remains on IV steroids as well. ABG was completed revealing pH 7.16, CO2 90, pO2 157, bicarb 31. Patient was transferred to the intensive care unit. Consult was placed for pulmonary. Dr. Figueredo evaluated patient in the intensive care unit. Dr. Figueredo spoke with two family members present at the bedside. 07/22/2017 Patient seen and examined in the intensive care unit. Patient is awake and alert. She is off bipap and on 3L NC. Blood pressure has been stable. Heart rate in the 70-80s. Patient is anxious and is complaining of pain. Patient is requesting her norco, xanax, and neurotin. Patient has orders to transfer to general medical floor. 07/23/2017 patient was seen and evaluated today. She is complaining of some coccygeal pain when she fallen. She came in the hospital with shortness of breath. She recently had a hospitalization for suspected pneumonia. She has coronary artery disease and history CABG and continues to smoke. His interstitial lung disease. While here she received IV fluids and developed acute volume overload. She has been since diuresis and is much improved. Her mental status currently is normal. She complains of just tailbone pain. She is not short of breath, her cough is improved. Objective - Vital Signs Vital signs: Vital Signs Temp 98.0 F 07/23/17 07:00 Pulse 76 07/23/17 12:16 Resp 16 07/23/17 07:00 BP 125/69 07/23/17 07:00 Pulse Ox 97 07/23/17 08:22 Intake & Output 07/22/17 07/23/17 07/23/17 18:59 06:59 18:59 Intake Total 1340 900 Output Total 1690 4500 Balance -350 -3600 Weight 44.1 kg Intake: IV 100 900 0.9 NaCl 1000ml bag @ 10 100 900 ml/hr Intake, IV Titration 200 Amount Magnesium Sulfate-D5w Pmx 200 1 gm In Dextrose/Water 1 100ml.bag @ 100 mls/hr IVPB Q1H [facility] Rx#: [id number] Oral 1040 Output: Urine 1690 4500 Other: Voiding Method Indwelling Catheter Indwelling Catheter Toilet # Voids 2 - Exam General: The patient is awake and alert, in no distress, she is a thin frail 61 -year-old white female. Neck: The neck is supple, there is no thyromegaly, lymphadenopathy, tenderness or JVD. Cardiovascular: S1S2 is normal, There is a regular rate and rhythm. No murmur, rub or gallop is appreciated. Respiratory: Lungs are course with poor air exchange bilaterally and minimal rhonchi. Active wheezes. respirations are non-labored, breath sounds are equal. Gastrointestinal: Soft, non-distended, non-tender abdomen without masses or organomegaly noted. There is no rebound or guarding present. Bowel sounds are unremarkable. Musculoskeletal: Normal ROM,There is no pedal edema. There is no calf tenderness or swelling. No cords were appreciated. there is tenderness to palpation of her coccyx. Neurological: CN II-XII intact, there are no obvious motor or sensory deficits. Coordination appears grossly intact. Speech is normal. Skin: Skin is warm and dry and no rashes or lesions are noted. - Labs CBC & Chem 7: 07/23/17 07:08 07/23/17 07:08 Labs: Abnormal Lab Results - Last 24 Hours (Table) 07/22/17 07/23/17 07/23/17 Range/Units 20:22 07:08 07:08 WBC 15.5 H (3.8-10.6) k/uL Hgb 9.5 L (11.4-16.0) gm/dL Hct 33.3 L (34.0-46.0) % MCV 79.2 L (80.0-100.0) fL MCH 22.7 L (25.0-35.0) pg MCHC 28.7 L (31.0-37.0) g/dL RDW 15.8 H (11.5-15.5) % Neutrophils # 13.2 H (1.3-7.7) k/uL Sodium 135 L (137-145) mmol/L Chloride 94 L (98-107) mmol/L Carbon Dioxide 34 H (22-30) mmol/L BUN 22 H (7-17) mg/dL Glucose 127 H (74-99) mg/dL POC Glucose (mg/dL) 133 H (75-99) mg/dL 07/23/17 07/23/17 Range/Units 08:29 11:31 WBC (3.8-10.6) k/uL Hgb (11.4-16.0) gm/dL Hct (34.0-46.0) % MCV (80.0-100.0) fL MCH (25.0-35.0) pg MCHC (31.0-37.0) g/dL RDW (11.5-15.5) % Neutrophils # (1.3-7.7) k/uL Sodium (137-145) mmol/L Chloride (98-107) mmol/L Carbon Dioxide (22-30) mmol/L BUN (7-17) mg/dL Glucose (74-99) mg/dL POC Glucose (mg/dL) 146 H 236 H (75-99) mg/dL Microbiology - Last 24 Hours (Table) 07/20/17 23:30 Blood Culture - Preliminary Blood No Growth after 48 hours 07/21/17 12:42 Urine Culture - Final Urine,Catheterized Assessment and Plan Plan: ASSESSMENT: Acute exacerbation of chronic obstructive pulmonary disease: pulmonology is on consult,continue DuoNeb, Augmentin, Pulmicort,Solu-Medrol Acute exacerbation of diastolic congestive heart failure, EF 50-55% from echo : Continue on spironolactone,Lasix, IV fluids remain at KVO, Acute hypoxic and hypercapnic respiratory failure, CO2 90, requiring Bipap, secondary to COPD exacerbation and fluid overload with pulmonary edema: Hours improved History of coronary disease with previous myocardial infarction: Cardiology is on consult, continue aspirin, continue Plavix, continue Toprol History of CABG 4 with mitral and tricuspid valve surgery in November 2016 Pulmonary hypertension Chronic hypoxic respiratory failure, requiring home oxygen Gastroesophageal reflux disease/GI prophylaxis: Continue pantoprazole Hyperlipidemia Anxiety, unspecifiedwe'll continue Xanax when necessary Depression, unspecified: Continue Paxil, Elavil, Wellbutrin Nicotine dependence, patient is a current everyday cigarette smoker: Encourage smoking cessation DVT prophylaxis: Continue on subcutaneous heparin PLAN: continue current medications and await recommendations from pulmonology and cardiology, she'll be reevaluated next 24 hours
--- NOTE | 2017-07-23 14:21 | P.PN ---
Subjective Progress Note Date: 07/23/17 Principal diagnosis: Acute exacerbation of chronic obstructive pulmonary disease. Consult dated 07/21/2017 61-year-old female who presented to the emergency room with complaints of increasing shortness of breath. The patient apparently was in quite a bit of distress in the emergency room. For some reason she was apparently admitted to the fourth floor. She does have a history of significant COPD on home on oxygen. Also suffers from significant cardiomyopathy heart failure CAD previous history of myocardial infarction. She was admitted yesterday. Apparently sometime today in the morning before noon, she developed worsening respiratory distress and couldn't breathe. The rapid response team was called by one of my ICU nurses went on to evaluate her. She was transferred to the ICU and placed on BiPAP. Her BiPAP settings are 12 and 4 and 50%. Blood gases been obtained. A chest x-ray show some fluid overload. Lasix was given. Steroids were given. Again she was transferred over here to the ICU. She is very lethargic and some of this distress could've been triggered by the use of narcotics and Neurontin medications given to her this morning. He may have made her sleepy and potentiated her respiratory difficulty. Her past medical history is positive for CAD heart failure COPD gastroesophageal reflux disease hyperlipidemia myocardial infarction cardiomyopathy with ejection fraction of 20 % secondary pulmonary hypertension celiac disease right breast cancer osteoporosis peripheral artery disease glaucoma and chronic sinus disease. Surgical history includes among other things breast surgery bypass grafting heart catheterization with stent placement various orthopedic procedures. Progress note dated 07/22/2017 61-year-old female who we saw yesterday. The patient came into the emergency room with complaints of shortness of breath. She apparently had quite a bit of distress in the emergency room she was admitted to the fourth floor. She has a history of significant severe COPD on home oxygen therapy cardiomyopathy and heart failure CAD previous history of myocardial infarction. The patient was transferred to the ICU because of increasing respiratory distress. The patient was placed on BiPAP at 12 and 4 and FiO2 was weaned down to 35%. She's doing much better. She was also given some Lasix. Steroids were given. We feel like her respiratory distress in part related to excessive use of narcotics and Neurontin. We stopped all of that when she came to the ICU. She is doing much better. Feeling much better. She sees my partner for her lung disease. Her ejection fraction is only 20%. She does have severe pulmonary hypertension as well. Progress note dated 07/23/2017 The patient is seen again today in follow-up on the regular medical floor. She is currently awake and alert in no acute distress. She's been off the BiPAP for a while this morning. Chest x-ray reveals chronic obstructive pulmonary disease, mild cardiomegaly, chronic interstitial changes. Currently maintaining good O2 saturations in the upper 90s on 2 L/m per nasal cannula. She's been afebrile. No tachycardia. No tachypnea. Blood cultures reveal no growth. Urine culture reveals no growth. White count 15.5. Hemoglobin 9.5. She remains on DuoNeb inhalations, IV Solu-Medrol, Symbicort, Augmentin. She continues to diurese. She is on Lasix 40 mg IV every 12 hours. Objective - Vital Signs Vital signs: Vital Signs Temp 98.0 F 07/23/17 07:00 Pulse 76 07/23/17 12:16 Resp 16 07/23/17 07:00 BP 125/69 07/23/17 07:00 Pulse Ox 97 07/23/17 08:22 Intake & Output 07/22/17 07/23/17 07/23/17 18:59 06:59 18:59 Intake Total 1340 900 600 Output Total 1690 4500 Balance -350 -3600 600 Weight 44.1 kg 44.1 kg Intake: IV 100 900 120 0.9 NaCl 1000ml bag @ 10 100 900 120 ml/hr Intake, IV Titration 200 Amount Magnesium Sulfate-D5w Pmx 200 1 gm In Dextrose/Water 1 100ml.bag @ 100 mls/hr IVPB Q1H [facility] Rx#: [id number] Oral 1040 480 Output: Urine 1690 4500 Other: Voiding Method Indwelling Catheter Indwelling Catheter Toilet # Voids 2 4 - Exam No acute distress, oriented 3. On nasal O2 at 3 L. Mildly dyspneic HEENT examination is grossly unremarkable. Mucous membranes are moist. No oral lesions. Neck supple. Full range of motion. No adenopathy thyromegaly or neck vein distention. Cardiovascular examination reveals regular rhythm rate. S1-S2 normal. No S3 or S4. No discernible murmur noted. Lungs reveal diminished breath sounds. Breath sounds are equal bilaterally. This some expiratory wheezes and rhonchi. There is prolongation on forced maneuver. No crackles. Abdomen soft bowel sounds are heard. No masses or tenderness. Extremities are intact. No cyanosis clubbing or edema. Skin is without rash or lesion. Neurologic examination is brief but nonfocal. - Labs CBC & Chem 7: 07/23/17 07:08 07/23/17 07:08 Labs: Abnormal Lab Results - Last 24 Hours (Table) 07/22/17 07/23/17 07/23/17 Range/Units 20:22 07:08 07:08 WBC 15.5 H (3.8-10.6) k/uL Hgb 9.5 L (11.4-16.0) gm/dL Hct 33.3 L (34.0-46.0) % MCV 79.2 L (80.0-100.0) fL MCH 22.7 L (25.0-35.0) pg MCHC 28.7 L (31.0-37.0) g/dL RDW 15.8 H (11.5-15.5) % Neutrophils # 13.2 H (1.3-7.7) k/uL Sodium 135 L (137-145) mmol/L Chloride 94 L (98-107) mmol/L Carbon Dioxide 34 H (22-30) mmol/L BUN 22 H (7-17) mg/dL Glucose 127 H (74-99) mg/dL POC Glucose (mg/dL) 133 H (75-99) mg/dL 07/23/17 07/23/17 Range/Units 08:29 11:31 WBC (3.8-10.6) k/uL Hgb (11.4-16.0) gm/dL Hct (34.0-46.0) % MCV (80.0-100.0) fL MCH (25.0-35.0) pg MCHC (31.0-37.0) g/dL RDW (11.5-15.5) % Neutrophils # (1.3-7.7) k/uL Sodium (137-145) mmol/L Chloride (98-107) mmol/L Carbon Dioxide (22-30) mmol/L BUN (7-17) mg/dL Glucose (74-99) mg/dL POC Glucose (mg/dL) 146 H 236 H (75-99) mg/dL Microbiology - Last 24 Hours (Table) 07/20/17 23:30 Blood Culture - Preliminary Blood No Growth after 48 hours 07/21/17 12:42 Urine Culture - Final Urine,Catheterized Assessment and Plan Assessment: Assessment Impending respiratory failure secondary to COPD exacerbation, which is also, treated by fluid overload/CHF in a patient with severe cardiomyopathy History of CAD CHF Severe COPD Gastroesophageal reflux disease Hyperlipidemia Myocardial infarction Cardiomyopathy Breast cancer Osteoporosis Secondary pulmonary hypertension Plan: The patient was seen and evaluated by Dr. Jiménez. Her chest x-ray and labs were reviewed. We'll continue with her current treatment. Will increase her activity as tolerated. We'll continue to utilize the BiPAP as needed. We will continue to follow and make further recommendations based on her clinical status. I, the cosigning physician, performed a history & physical examination of the patient. Lungs sounds have bilateral end expiratory wheeze. Diminished. Maintaining good O2 saturations in the 90s on 2 L/m per nasal cannula. I discussed the assessment and plan of care with my nurse practitioner, Katarina Levin. I attest to the above note as dictated by her.
--- NOTE | 2017-07-23 14:39 | XR ---
EXAMINATION TYPE: XR sacrum coccyx DATE OF EXAM: 07/23/2017 CLINICAL HISTORY: pain TECHNIQUE: Three views of the sacrum and coccyx are submitted. COMPARISON: Sacral alae appear symmetric. No evidence for fracture or bony lesion. Sacroiliac joints are within normal limits. Visualized coccygeal segments are free of fracture or lesion. IMPRESSION: Normal study
[2017-07-23 16:25] LABS: Glucose,Whole Blood 191 mg/dL (75-99)
[2017-07-23] MEDS: AMITRIPTYLINE HCL 25 MG TAB PO SCH (20:02)
[2017-07-23 20:15] LABS: Glucose,Whole Blood 147 mg/dL (75-99)
[2017-07-24] MEDS: HYDROcodone/APAP 7.5-325MG 1 EACH TAB PO PRN ×4 (06:07→23:38)
[2017-07-24] MEDS: methylPREDNISolone SOD SUCCI 40 MG/ML 1 ML VIAL IV SCH (06:07)
[2017-07-24] MEDS: SYMBICORT 160-4.5 MCG INHALER INHALATION SCH ×2 (07:07→21:17)
[2017-07-24] MEDS: IPRATROPIUM-ALBUTEROL 3 ML NEB INHALATION SCH ×4 (07:07→21:17)
[2017-07-24 07:21] LABS: Glucose,Whole Blood 113 mg/dL (75-99)
[2017-07-24] MEDS: HEPARIN SODIUM,PORCINE 5,000 UNIT/ML 1 ML VIAL SQ SCH ×3 (07:31→23:39)
[2017-07-24] MEDS: INSULIN ASPART 100 UNIT/ML 1 ML 10 ML VIAL SQ SCH ×4 (07:31→21:42)
[2017-07-24] MEDS: GABAPENTIN 400 MG CAP PO SCH ×3 (07:32→21:46)
[2017-07-24] MEDS: PANTOPRAZOLE 40 MG TABLET PO SCH (07:32)
[2017-07-24] MEDS: ASPIRIN 81 MG PO SCH (07:32)
[2017-07-24] MEDS: AMOXIC-POT CLAV 875-125MG 1 EACH TAB PO SCH ×2 (07:33→21:46)
[2017-07-24] MEDS: SPIRONOLACTONE 25 MG TAB PO SCH (07:33)
[2017-07-24] MEDS: PARoxetine 10 MG TAB PO SCH ×2 (07:34→21:46)
[2017-07-24] MEDS: buPROPion XL 150 MG TAB.ER.24H PO SCH (07:34)
[2017-07-24] MEDS: PROPRANOLOL 40 MG TAB PO SCH ×2 (07:34→21:46)
[2017-07-24] MEDS: CLOPIDOGREL 75 MG TAB PO SCH (07:35)
[2017-07-24] MEDS: METOPROLOL SUCCINATE (ER) 50 MG TAB.ER.24H PO SCH (07:35)
[2017-07-24] MEDS: FUROSEMIDE 10 MG/ML 4 ML VIAL IV SCH (07:35)
[2017-07-24] MEDS: PRIMIDONE 50 MG TAB PO SCH ×3 (07:36→21:46)
[2017-07-24 07:37] LABS: Anion Gap 9 mmol/L; Blood Urea Nitrogen 31 mg/dL (7-17); Calcium 8.8 mg/dL (8.4-10.2); Carbon Dioxide 37 mmol/L (22-30); Chloride 92 mmol/L (98-107); Glucose 117 mg/dL (74-99); Potassium 4.3 mmol/L (3.5-5.1); Sodium 138 mmol/L (137-145)
[2017-07-24 08:00] LABS: Basophils % (A) 0 %; Eosinophils % (A) 0 %; HCT 36.5 % (34.0-46.0); HGB 10.7 gm/dL (11.4-16.0); Hypochromasia Marked; Lymphocytes # (A) 1.6 k/uL (1.0-4.8); Lymphocytes % (A) 10 %; MCH 23.3 pg (25.0-35.0); MCHC 29.4 g/dL (31.0-37.0); MCV 79.1 fL (80.0-100.0); Mean Platelet Volume 6.5; Monocytes # (A) 1.3 k/uL (0-1.0); Monocytes % (A) 8 %; Neutrophils # (A) 12.1 k/uL (1.3-7.7); Neutrophils % (A) 79 %; Platelet Count 450 k/uL (150-450); Poikilocytosis Slight; RBC 4.61 m/uL (3.80-5.40); RDW 15.2 % (11.5-15.5); WBC 15.4 k/uL (3.8-10.6)
[2017-07-24] MEDS: FUROSEMIDE 40 MG TAB PO SCH (10:41)
--- NOTE | 2017-07-24 11:15 | P.PN ---
Subjective Progress Note Date: 07/24/17 Principal diagnosis: COPD exacerbation Progress note dated 07/22/2017 61-year-old female who we saw yesterday. The patient came into the emergency room with complaints of shortness of breath. She apparently had quite a bit of distress in the emergency room she was admitted to the fourth floor. She has a history of significant severe COPD on home oxygen therapy cardiomyopathy and heart failure CAD previous history of myocardial infarction. The patient was transferred to the ICU because of increasing respiratory distress. The patient was placed on BiPAP at 12 and 4 and FiO2 was weaned down to 35%. She's doing much better. She was also given some Lasix. Steroids were given. We feel like her respiratory distress in part related to excessive use of narcotics and Neurontin. We stopped all of that when she came to the ICU. She is doing much better. Feeling much better. She sees my partner for her lung disease. Her ejection fraction is only 20%. She does have severe pulmonary hypertension as well. Progress note dated 07/24/2017 This is a 61-year-old female who is improving day by day. She initially came to the emergency department with complaints of increasing shortness of breath. She had both a COPD exacerbation and CHF. She has a history of significant and severe oxygen-dependent COPD, cardiomyopathy, heart failure, CAD, myocardial infarction. In addition, she has a history of secondary pulmonary hypertension osteoporosis and rest cancer. The patient was initially transferred to the intensive care unit where she received BiPAP therapy at 12 and 4 and 35%. Much of her respiratory failure with believe was related to an excess amount of [place] and Neurontin. Currently she is feeling much better. Has a very poor ejection fraction of about 20%. She sees my partner in the office. Objective - Vital Signs Vital signs: Vital Signs Temp 98 F 07/24/17 08:04 Pulse 78 07/24/17 11:09 Resp 16 07/24/17 08:04 BP 136/73 07/24/17 08:04 Pulse Ox 99 07/24/17 08:04 Intake & Output 07/23/17 07/24/17 07/24/17 18:59 06:59 18:59 Intake Total 600 100 Balance 600 100 Weight 44.1 kg Intake: IV 120 0.9 NaCl 1000ml bag @ 10 120 ml/hr Oral 480 100 Other: Voiding Method Toilet Toilet # Voids 4 2 - Exam No acute distress, oriented 3. On nasal O2 at 3 L. HEENT examination is grossly unremarkable. Mucous membranes are moist. No oral lesions. Neck supple. Full range of motion. No adenopathy thyromegaly or neck vein distention. Cardiovascular examination reveals regular rhythm rate. S1-S2 normal. No S3 or S4. No discernible murmur noted. Lungs reveal diminished breath sounds. Breath sounds are equal bilaterally. This some expiratory wheezes and rhonchi. There is prolongation on forced maneuver. No crackles. Abdomen soft bowel sounds are heard. No masses or tenderness. Extremities are intact. No cyanosis clubbing or edema. Skin is without rash or lesion. Neurologic examination is brief but nonfocal. - Labs CBC & Chem 7: 07/24/17 07:08 07/24/17 07:08 Labs: Abnormal Lab Results - Last 24 Hours (Table) 07/23/17 07/23/17 07/23/17 Range/Units 11:31 16:23 20:13 WBC (3.8-10.6) k/uL Hgb (11.4-16.0) gm/dL MCV (80.0-100.0) fL MCH (25.0-35.0) pg MCHC (31.0-37.0) g/dL Neutrophils # (1.3-7.7) k/uL Monocytes # (0-1.0) k/uL Chloride (98-107) mmol/L Carbon Dioxide (22-30) mmol/L BUN (7-17) mg/dL Glucose (74-99) mg/dL POC Glucose (mg/dL) 236 H 191 H 147 H (75-99) mg/dL 07/24/17 07/24/17 07/24/17 Range/Units 07:07 07:08 07:08 WBC 15.4 H (3.8-10.6) k/uL Hgb 10.7 L (11.4-16.0) gm/dL MCV 79.1 L (80.0-100.0) fL MCH 23.3 L (25.0-35.0) pg MCHC 29.4 L (31.0-37.0) g/dL Neutrophils # 12.1 H (1.3-7.7) k/uL Monocytes # 1.3 H (0-1.0) k/uL Chloride 92 L (98-107) mmol/L Carbon Dioxide 37 H (22-30) mmol/L BUN 31 H (7-17) mg/dL Glucose 117 H (74-99) mg/dL POC Glucose (mg/dL) 113 H (75-99) mg/dL Microbiology - Last 24 Hours (Table) 07/20/17 23:30 Blood Culture - Preliminary Blood No Growth after 72 hours Assessment and Plan Assessment: Assessment Impending respiratory failure secondary to COPD exacerbation, which is also, treated by fluid overload/CHF in a patient with severe cardiomyopathy. We believe that much of her respiratory distress requiring admission to the intensive care unit related to excessive [place] and Neurontin. She responded very nicely to BiPAP therapy. History of CAD CHF Severe COPD Gastroesophageal reflux disease Hyperlipidemia Myocardial infarction Cardiomyopathy with an ejection fraction of 20% Breast cancer Osteoporosis Secondary pulmonary hypertension Plan: Plan dated 07/21/2017 The patient is here in the ICU. We'll get a blood gas. She was originally given Lasix. We'll make sure he is an appropriate medications including updrafts and steroids. The patient will be maintained on BiPAP. I did ask the respiratory therapist at titrate down the FiO2. Pending the blood gas, additional recommendations and suggestions are forthcoming. Prognosis is guarded. Plan dated 07/22/2017 The patient was maintained on BiPAP with settings of 12 and 4 and 35%. The patient is now on nasal O2 at 3 L and a saline IV at KVO. The patient was given DuoNeb every 4 while awake and when necessary and now his been switched to DuoNeb's 4 times a day and when necessary. She's also on Perforomist and Pulmicort 1 mg twice a day. She is on systemic corticosteroids and antibiotics. She's doing much better. She can be transferred out back to the general medical floor. We'll give her back time we'll offer pain. When she gets too much pain medication or other medications such as sedatives hypnotics narcotics and tranquilizers, she is a high risk for respiratory failure. Plan dated 07/24/2017 The patient's overall condition continues to improve. We'll increase her activity. We'll continue with her breathing medications. She'll continue to use BiPAP as needed. Further recommendations will be made based on her clinical status. Overall, her situation has improved in the last 24-48 hours. Primary service will determine discharge date. Time with Patient: Less than 30
--- NOTE | 2017-07-24 11:15 | P.PN ---
Subjective Per Dr. Figueredo and nurse practitioner Brittni Gongora Progress Note Date: 07/22/17 61-year-old female who presented to the emergency room with a chief complaint of shortness of breath. Patient states she has been progressively short of breath over the last 24 hours. She denied chest pain or pressure. Denies cough or sputum production. Denies fever or chills. Denies nausea or vomiting. The patient was recently hospitalized from 11/25/2017 until 06/29/2017 secondary to mental status changes, suspected pneumonia, acute kidney injury, and congestive heart failure. The patient has a history of coronary artery disease, congestive heart failure, chronic obstructive pulmonary disease, gastro-esophageal reflux disease, hyperlipidemia, myocardial infarction, and anxiety. The patient underwent a CABG 4 vessel with mitral valve and tricuspid valve surgery in November 2016. She is a current everyday cigarette smoker and states she is smoking about 5 or 6 cigarettes a day. She denies alcohol use. Echocardiogram from May 2017 reveals an ejection fraction of 50-55%, posterior and inferior hypokinesis, mild mitral regurgitation, mild tricuspid regurgitation, mild pulmonary hypertension with RVSP of 45.35. Her previous echocardiogram was completed in November 2016 and revealed an ejection fraction of 20%. Chest x-ray: Interstitial fibrotic changes, atypical mild heart failure may be present Laboratory data: WBC 12.4. Hemoglobin 10.4. Platelet count 424. Sodium 139. Potassium 3.5. BUN 16. Creatinine 0.70. Glucose 135. Magnesium 2.1. AST 84 and ALT 56 Troponins 0.030 BNP: 7400 Testing for influenza A and B was negative Urinalysis reveals: 2+ proteinuria but otherwise unremarkable The patient was admitted to the hospital under the care of Dr. Figueredo. The patient was seen and examined at the bedside early this morning. Patient was very lethargic but was arousable to verbal stimuli. Patient had stated she did not sleep much overnight. MAR shows that patient did receive IV ativan and IV morphine around midnight. Spoke with nursing who states patient did not receive any narcotics this morning. Patient was maintaining oxygen saturation greater than 92%. Vital signs were stable at time. Patient was evaluated last admission for chronic liver disease due to elevated liver enzymes. Ammonia level was ordered to rule out hepatic encephalopathy. Ammonia level was within normal limits at 21. Nurse practitioner was called by nursing staff that patient very suddenly became short of breath, tachypneic, and was foaming at the mouth. Prior to this , nursing states patient was more awake than this morning and had been up twice to the bedside commonde to urinate. Rapid response was called. Patient was placed on Bipap. Chest xray was completed revealing pulmonary edema and volume overload. Lasix 40mg IV was ordered. Patient remains on IV steroids as well. ABG was completed revealing pH 7.16, CO2 90, pO2 157, bicarb 31. Patient was transferred to the intensive care unit. Consult was placed for pulmonary. Dr. Figueredo evaluated patient in the intensive care unit. Dr. Figueredo spoke with two family members present at the bedside. 07/22/2017 Patient seen and examined in the intensive care unit. Patient is awake and alert. She is off bipap and on 3L NC. Blood pressure has been stable. Heart rate in the 70-80s. Patient is anxious and is complaining of pain. Patient is requesting her norco, xanax, and neurotin. Patient has orders to transfer to general medical floor. Per Dr. Isbell 07/23/2017 patient was seen and evaluated today. She is complaining of some coccygeal pain when she fallen. She came in the hospital with shortness of breath. She recently had a hospitalization for suspected pneumonia. She has coronary artery disease and history CABG and continues to smoke. His interstitial lung disease. While here she received IV fluids and developed acute volume overload. She has been since diuresis and is much improved. Her mental status currently is normal. She complains of just tailbone pain. She is not short of breath, her cough is improved. 07/24/2017. Patient feels great today. Her coccygeal pain continues but is improved. We discussed her negative x-ray. Her shortness of breath is resolved. Cardiology had change her to by mouth Lasix from her pulmonary edema. He also remains on Aldactone. Her current steroid dose is Solu-Medrol 40 every 6 hours IVP Objective - Vital Signs Vital signs: Vital Signs Temp 98 F 07/24/17 08:04 Pulse 78 07/24/17 11:09 Resp 16 07/24/17 08:04 BP 136/73 07/24/17 08:04 Pulse Ox 99 07/24/17 08:04 Intake & Output 07/23/17 07/24/17 07/24/17 18:59 06:59 18:59 Intake Total 600 100 Balance 600 100 Weight 44.1 kg Intake: IV 120 0.9 NaCl 1000ml bag @ 10 120 ml/hr Oral 480 100 Other: Voiding Method Toilet Toilet # Voids 4 2 - Exam General: The patient is awake and alert, in no distress, she is a thin frail 61 -year-old white female. Neck: The neck is supple, there is no thyromegaly, lymphadenopathy, tenderness or JVD. Cardiovascular: S1S2 is normal, There is a regular rate and rhythm. No murmur, rub or gallop is appreciated. Respiratory: Lungs are course with poor air exchange bilaterally and minimal rhonchi. Active wheezes. respirations are non-labored, breath sounds are equal. Gastrointestinal: Soft, non-distended, non-tender abdomen without masses or organomegaly noted. There is no rebound or guarding present. Bowel sounds are unremarkable. Musculoskeletal: Normal ROM,There is no pedal edema. There is no calf tenderness or swelling. No cords were appreciated. there is tenderness to palpation of her coccyx. Neurological: CN II-XII intact, there are no obvious motor or sensory deficits. Coordination appears grossly intact. Speech is normal. Skin: Skin is warm and dry and no rashes or lesions are noted. - Labs CBC & Chem 7: 07/24/17 07:08 07/24/17 07:08 Labs: Abnormal Lab Results - Last 24 Hours (Table) 07/23/17 07/23/17 07/23/17 Range/Units 11:31 16:23 20:13 WBC (3.8-10.6) k/uL Hgb (11.4-16.0) gm/dL MCV (80.0-100.0) fL MCH (25.0-35.0) pg MCHC (31.0-37.0) g/dL Neutrophils # (1.3-7.7) k/uL Monocytes # (0-1.0) k/uL Chloride (98-107) mmol/L Carbon Dioxide (22-30) mmol/L BUN (7-17) mg/dL Glucose (74-99) mg/dL POC Glucose (mg/dL) 236 H 191 H 147 H (75-99) mg/dL 07/24/17 07/24/17 07/24/17 Range/Units 07:07 07:08 07:08 WBC 15.4 H (3.8-10.6) k/uL Hgb 10.7 L (11.4-16.0) gm/dL MCV 79.1 L (80.0-100.0) fL MCH 23.3 L (25.0-35.0) pg MCHC 29.4 L (31.0-37.0) g/dL Neutrophils # 12.1 H (1.3-7.7) k/uL Monocytes # 1.3 H (0-1.0) k/uL Chloride 92 L (98-107) mmol/L Carbon Dioxide 37 H (22-30) mmol/L BUN 31 H (7-17) mg/dL Glucose 117 H (74-99) mg/dL POC Glucose (mg/dL) 113 H (75-99) mg/dL Microbiology - Last 24 Hours (Table) 07/20/17 23:30 Blood Culture - Preliminary Blood No Growth after 72 hours Assessment and Plan Plan: ASSESSMENT: Acute exacerbation of chronic obstructive pulmonary disease: pulmonology is on consult,continue DuoNeb, Augmentin, Pulmicort,Solu-Medrol Acute exacerbation of diastolic congestive heart failure, EF 50-55% from echo : Continue on spironolactone,Lasix, IV fluids remain at KVO, Acute hypoxic and hypercapnic respiratory failure, CO2 90, requiring Bipap, secondary to COPD exacerbation and fluid overload with pulmonary edema: Hours improved History of coronary disease with previous myocardial infarction: Cardiology is on consult, continue aspirin, continue Plavix, continue Toprol History of CABG 4 with mitral and tricuspid valve surgery in November 2016 Pulmonary hypertension Chronic hypoxic respiratory failure, requiring home oxygen Gastroesophageal reflux disease/GI prophylaxis: Continue pantoprazole Hyperlipidemia Anxiety, unspecifiedwe'll continue Xanax when necessary Depression, unspecified: Continue Paxil, Elavil, Wellbutrin Nicotine dependence, patient is a current everyday cigarette smoker: Encourage smoking cessation DVT prophylaxis: Continue on subcutaneous heparin PLAN: I will decrease her Solu-Medrol to 30 mg every 8 hr continue current medications and await recommendations from pulmonology and cardiology, she'll be reevaluated next 24 hours
[2017-07-24] MEDS ORDERED: methylPREDNISolone SOD SUCCI 40 MG/ML 1 ML VIAL IV SCH (11:30)
[2017-07-24 11:57] LABS: Glucose,Whole Blood 126 mg/dL (75-99)
[2017-07-24] MEDS: MAGNESIUM OXIDE 400 MG TAB PO SCH (12:06)
--- NOTE | 2017-07-24 15:25 | P.PN ---
Subjective Progress Note Date: 07/24/17 Mrs. Benítez is seen today in follow-up on the medical floor. She has past medical history significant for bypass surgery and stent placement, cardiomyopathy, hypertension, dyslipidema, PAD with b/l iliac stents and COPD. She has been receiving IV lasix for diuresis with great improvement. She denies chest pain, shortness of breath, dizziness, palpitations, syncope, nausea or vomiting. Echocardiogram from reveals preserved LV function with EF 50- 55%, mild MR and TR, AV sclerosis, pulmonary hypertension witn RVSP 45.35 mmHg and LVH. This is an improvement from previous showing less than 30%. WBC 15.4, hgb 10.7, potassium 4.3 and creatinine 0.88. Objective - Vital Signs Vital signs: Vital Signs Temp 98 F 07/24/17 08:04 Pulse 78 07/24/17 11:09 Resp 16 07/24/17 08:04 BP 136/73 07/24/17 08:04 Pulse Ox 99 07/24/17 08:04 Intake & Output 07/23/17 07/24/17 07/24/17 18:59 06:59 18:59 Intake Total 600 100 480 Output Total 1700 Balance 600 100 -1220 Weight 44.1 kg 44.1 kg Intake: IV 120 0.9 NaCl 1000ml bag @ 10 120 ml/hr Oral 480 100 480 Output: Urine 1700 Other: Voiding Method Toilet Toilet # Voids 4 2 3 - Exam Blood pressure 136/73 heart rate 78 afebrile GENERAL: Well-appearing, well-nourished and in no acute distress. NECK: Supple without JVD or thyromegaly. LUNGS: Respiration equal and unlabored. Faint expiratory wheezing. No rales or rhonchi. HEART: Regular rate and rhythm with systolic murmur, no rubs or gallops. S1 and S2 heard. EXTREMITIES: Normal range of motion, no edema. No clubbing or cyanosis. Peripheral pulses intact. - Labs CBC & Chem 7: 07/24/17 07:08 07/24/17 07:08 Labs: Abnormal Lab Results - Last 24 Hours (Table) 07/23/17 07/23/17 07/24/17 Range/Units 16:23 20:13 07:07 WBC (3.8-10.6) k/uL Hgb (11.4-16.0) gm/dL MCV (80.0-100.0) fL MCH (25.0-35.0) pg MCHC (31.0-37.0) g/dL Neutrophils # (1.3-7.7) k/uL Monocytes # (0-1.0) k/uL Chloride (98-107) mmol/L Carbon Dioxide (22-30) mmol/L BUN (7-17) mg/dL Glucose (74-99) mg/dL POC Glucose (mg/dL) 191 H 147 H 113 H (75-99) mg/dL 07/24/17 07/24/17 07/24/17 Range/Units 07:08 07:08 11:44 WBC 15.4 H (3.8-10.6) k/uL Hgb 10.7 L (11.4-16.0) gm/dL MCV 79.1 L (80.0-100.0) fL MCH 23.3 L (25.0-35.0) pg MCHC 29.4 L (31.0-37.0) g/dL Neutrophils # 12.1 H (1.3-7.7) k/uL Monocytes # 1.3 H (0-1.0) k/uL Chloride 92 L (98-107) mmol/L Carbon Dioxide 37 H (22-30) mmol/L BUN 31 H (7-17) mg/dL Glucose 117 H (74-99) mg/dL POC Glucose (mg/dL) 126 H (75-99) mg/dL Microbiology - Last 24 Hours (Table) 07/20/17 23:30 Blood Culture - Preliminary Blood No Growth after 72 hours Assessment and Plan Assessment: ASSESSMENT 1. Acute on chronic heart failure with improved EF 50-55% 2. History of coronary artery disease with bypass grafting 3. COPD 4. Hypertension 5. Dyslipidemia 6. Peripheral arterial disease PLAN Breathing has greatly improved. Lasix can be transitioned to oral dosing. Continue with medical management. We will follow as needed. Nurse Practitioner note has been reviewed, I agree with a documented findings and plan of care. Patient was seen and examined.
[2017-07-24 17:11] LABS: Glucose,Whole Blood 161 mg/dL (75-99)
[2017-07-24 20:42] LABS: Glucose,Whole Blood 120 mg/dL (75-99)
[2017-07-24] MEDS: AMITRIPTYLINE HCL 25 MG TAB PO SCH (21:46)
[2017-07-24 21:47] VITALS: RESP 18
[2017-07-25] MEDS: ALPRAZolam 0.25 MG TAB PO PRN (00:21)
[2017-07-25] MEDS: ACETAMINOPHEN TAB 325 MG TAB PO PRN (03:01)
[2017-07-25 07:12] LABS: Glucose,Whole Blood 99 mg/dL (75-99)
[2017-07-25] MEDS: SYMBICORT 160-4.5 MCG INHALER INHALATION SCH (07:39)
[2017-07-25] MEDS: IPRATROPIUM-ALBUTEROL 3 ML NEB INHALATION SCH ×2 (07:39→11:15)
[2017-07-25 07:47] VITALS: BP 105/62; TEMP 99
[2017-07-25 07:56] LABS: Basophils % (A) 0 %; Eosinophils # (A) 0.3 k/uL (0-0.7); Eosinophils % (A) 2 %; HGB 10.7 gm/dL (11.4-16.0); Hypochromasia Marked; Lymphocytes # (A) 4.2 k/uL (1.0-4.8); Lymphocytes % (A) 24 %; MCH 23.3 pg (25.0-35.0); MCV 80.1 fL (80.0-100.0); Mean Platelet Volume 6.4; Monocytes # (A) 1.6 k/uL (0-1.0); Monocytes % (A) 9 %; Neutrophils # (A) 10.8 k/uL (1.3-7.7); Neutrophils % (A) 62 %; Platelet Count 453 k/uL (150-450); Poikilocytosis Slight; RBC 4.62 m/uL (3.80-5.40); RDW 15.1 % (11.5-15.5); WBC 17.5 k/uL (3.8-10.6)
[2017-07-25] MEDS: INSULIN ASPART 100 UNIT/ML 1 ML 10 ML VIAL SQ SCH ×2 (07:57→12:24)
[2017-07-25 07:58] LABS: Anion Gap 9 mmol/L; Blood Urea Nitrogen 28 mg/dL (7-17); Calcium 8.9 mg/dL (8.4-10.2); Carbon Dioxide 31 mmol/L (22-30); Chloride 93 mmol/L (98-107); Glucose 100 mg/dL (74-99); Magnesium 1.9 mg/dL (1.6-2.3); Potassium 4.6 mmol/L (3.5-5.1); Sodium 133 mmol/L (137-145)
[2017-07-25] MEDS ORDERED: predniSONE 10 MG TAB PO SCH (09:00)
[2017-07-25 09:03] LABS: Poikilocytosis (M) Present; Toxic Granulation Present
[2017-07-25 09:04] LABS: Target Cells Present
[2017-07-25] MEDS: buPROPion XL 150 MG TAB.ER.24H PO SCH (09:10)
[2017-07-25] MEDS: SPIRONOLACTONE 25 MG TAB PO SCH (09:10)
[2017-07-25] MEDS: HEPARIN SODIUM,PORCINE 5,000 UNIT/ML 1 ML VIAL SQ SCH (09:10)
[2017-07-25] MEDS: PROPRANOLOL 40 MG TAB PO SCH (09:11)
[2017-07-25] MEDS: PRIMIDONE 50 MG TAB PO SCH (09:11)
[2017-07-25] MEDS: GABAPENTIN 400 MG CAP PO SCH (09:11)
[2017-07-25] MEDS: ASPIRIN 81 MG PO SCH (09:11)
[2017-07-25] MEDS: PARoxetine 10 MG TAB PO SCH (09:11)
[2017-07-25] MEDS: FUROSEMIDE 40 MG TAB PO SCH (09:11)
[2017-07-25] MEDS: AMOXIC-POT CLAV 875-125MG 1 EACH TAB PO SCH (09:11)
[2017-07-25] MEDS: CLOPIDOGREL 75 MG TAB PO SCH (09:11)
[2017-07-25] MEDS: METOPROLOL SUCCINATE (ER) 50 MG TAB.ER.24H PO SCH (09:11)
[2017-07-25] MEDS: PANTOPRAZOLE 40 MG TABLET PO SCH (09:12)
[2017-07-25 11:19] VITALS: PULSE 72
--- NOTE | 2017-07-25 12:24 | P.DS ---
Providers Date of admission: 07/21/17 12:20 Expected date of discharge: 07/25/17 Attending physician: Duarte Figueredo Consults: 07/21/17 11:54 Consult Physician Routine Consulting Provider: Dioni Jiménez Consult Reason/Comments: respiratory distress Do you want consulting provider notified?: Yes 07/21/17 13:27 Consult Physician Routine Consulting Provider: Radha Vega Consult Reason/Comments: pulmonary edema Do you want consulting provider notified?: Yes Primary care physician: Greenwood [facility] Hospital Course: 61-year-old female who presented to the emergency room with a chief complaint of shortness of breath. Patient states she has been progressively short of breath over the last 24 hours. She denied chest pain or pressure. Denies cough or sputum production. Denies fever or chills. Denies nausea or vomiting. The patient was recently hospitalized from 11/25/2017 until 06/29/2017 secondary to mental status changes, suspected pneumonia, acute kidney injury, and congestive heart failure. The patient has a history of coronary artery disease, congestive heart failure, chronic obstructive pulmonary disease, gastro-esophageal reflux disease, hyperlipidemia, myocardial infarction, and anxiety. The patient underwent a CABG 4 vessel with mitral valve and tricuspid valve surgery in November 2016. She is a current everyday cigarette smoker and states she is smoking about 5 or 6 cigarettes a day. She denies alcohol use. Echocardiogram from May 2017 reveals an ejection fraction of 50-55%, posterior and inferior hypokinesis, mild mitral regurgitation, mild tricuspid regurgitation, mild pulmonary hypertension with RVSP of 45.35. Her previous echocardiogram was completed in November 2016 and revealed an ejection fraction of 20%. Chest x-ray: Interstitial fibrotic changes, atypical mild heart failure may be present Laboratory data: WBC 12.4. Hemoglobin 10.4. Platelet count 424. Sodium 139. Potassium 3.5. BUN 16. Creatinine 0.70. Glucose 135. Magnesium 2.1. AST 84 and ALT 56 Troponins 0.030 BNP: 7400 Testing for influenza A and B was negative Urinalysis reveals: 2+ proteinuria but otherwise unremarkable During hospitalization, the patient did develop pulmonary edema, fluid overload , and respiratory distress. She was transferred to the intensive care unit and required BiPAP for a short time. Chest xray was completed revealing pulmonary edema and volume overload. Cardiology and pulmonary were both consulted. The patient was started on IV Lasix twice daily which has since been transitioned to oral. She was also receiving IV steroids during hospitalization which have been transitioned to oral. The patient improved significantly with diuretics and steroids. She is back to her baseline. She is anxious to be discharged home. The patient was deemed stable for discharge per Dr. Isbell. She is to follow up on an outpatient basis. She was encouraged to quit smoking. Dr. Figueredo also spoke with her family members during hospitalization and encouraged all family members around patient to stop smoking as well. DISCHARGE DIAGNOSIS: Acute exacerbation of chronic obstructive pulmonary disease, improved at the time of discharge Acute exacerbation of diastolic congestive heart failure, EF 50-55% from echo , improved at time of discharge Acute hypoxic and hypercapnic respiratory failure, CO2 90, requiring Bipap, secondary to COPD exacerbation and fluid overload with pulmonary edema, resolved at time of discharge History of coronary disease with previous myocardial infarction History of CABG 4 with mitral and tricuspid valve surgery in November 2016 Pulmonary hypertension Chronic hypoxic respiratory failure, requiring home oxygen Gastroesophageal reflux disease Hyperlipidemia Anxiety, unspecified Depression, unspecified Nicotine dependence, patient is a current everyday cigarette smoker Nurse practitioner note has been reviewed by physician. Signing provider agrees with the documented findings, assessment, and plan of care. Patient Condition at Discharge: Fair Plan - Discharge Summary Discharge Rx Participant: No New Discharge Prescriptions: New ALPRAZolam [Xanax] 0.25 mg PO TID PRN tab PRN Reason: Anxiety Amoxic-Pot Clav 875-125Mg [Augmentin 875-125] 1 each PO Q12HR #14 tab predniSONE See Taper PO DIRECTED #20 tab Continue Hydrocodone/Acetaminophen [Hydrocodone/Acetaminophen 10-325] 1 tab PO Q8H PRN PRN Reason: Pain Gabapentin 400 mg PO TID Budesonide-Formot 160-4.5 Mcg [Symbicort 160-4.5 Mcg Inhaler] 2 puff INHALATION RT-BID #1 inhaler Atorvastatin [Lipitor] 80 mg PO HS #30 tab Nitroglycerin Sl Tabs [Nitrostat] 0.4 mg SUBLINGUAL Q5M PRN #25 tab PRN Reason: Chest Pain Cyanocobalamin [Vitamin B-12] 500 mcg PO DAILY Multivitamins, Thera [Multivitamin (formulary)] 1 tab PO DAILY Primidone [Mysoline] 50 mg PO TID Vitamin E 1,000 unit PO DAILY Tiotropium Rosalia [Spiriva] 1 cap INHALATION RT-DAILY Aspirin 81 mg PO DAILY Clopidogrel [Plavix] 75 mg PO DAILY #30 tab Albuterol Nebulized [Ventolin Nebulized] 2.5 mg INHALATION RT-Q4H PRN PRN Reason: Shortness Of Breath Calcium Carbonate [Calcium] 600 mg PO DAILY Magnesium Gluconate [Magonate] 1,000 mg PO DAILY Famotidine [Pepcid] 20 mg PO DAILY PRN PRN Reason: reflux Metoprolol Succinate (ER) [Toprol XL] 50 mg PO DAILY Spironolactone [Aldactone] 25 mg PO DAILY buPROPion XL [Wellbutrin XL] 75 mg PO DAILY Furosemide [Lasix] 40 mg PO BID PARoxetine HCL [Paxil] 30 mg PO BID Amitriptyline HCl [Elavil] 25 mg PO HS Propranolol [Inderal] 40 mg PO BID Zolpidem [Ambien] 10 mg PO HS PRN PRN Reason: Insomnia Discontinued ALPRAZolam [Xanax] 0.5 mg PO TID PRN PRN Reason: Anxiety Discharge Medication List Gabapentin 400 mg PO TID 06/24/14 [History] Hydrocodone/Acetaminophen [Hydrocodone/Acetaminophen 10-325] 1 tab PO Q8H PRN [History] Budesonide-Formot 160-4.5 Mcg [Symbicort 160-4.5 Mcg Inhaler] 2 puff INHALATION RT-BID #1 inhaler 06/29/14 [Rx] Atorvastatin [Lipitor] 80 mg PO HS #30 tab 07/18/14 [Rx] Nitroglycerin Sl Tabs [Nitrostat] 0.4 mg SUBLINGUAL Q5M PRN #25 tab 07/18/14 [Rx ] Cyanocobalamin [Vitamin B-12] 500 mcg PO DAILY 07/21/14 [History] Multivitamins, Thera [Multivitamin (formulary)] 1 tab PO DAILY 07/21/14 [History ] Primidone [Mysoline] 50 mg PO TID 10/29/14 [History] Aspirin 81 mg PO DAILY 09/17/15 [History] Tiotropium Rosalia [Spiriva] 1 cap INHALATION RT-DAILY 09/17/15 [History] Vitamin E 1,000 unit PO DAILY 09/17/15 [History] Clopidogrel [Plavix] 75 mg PO DAILY #30 tab 08/06/16 [Rx] Albuterol Nebulized [Ventolin Nebulized] 2.5 mg INHALATION RT-Q4H PRN 12/04/16 [ History] Calcium Carbonate [Calcium] 600 mg PO DAILY 12/04/16 [History] Magnesium Gluconate [Magonate] 1,000 mg PO DAILY 12/04/16 [History] Famotidine [Pepcid] 20 mg PO DAILY PRN 02/11/17 [History] Furosemide [Lasix] 40 mg PO BID 02/11/17 [History] Metoprolol Succinate (ER) [Toprol XL] 50 mg PO DAILY 02/11/17 [History] Spironolactone [Aldactone] 25 mg PO DAILY 02/11/17 [History] buPROPion XL [Wellbutrin XL] 75 mg PO DAILY 02/11/17 [History] PARoxetine HCL [Paxil] 30 mg PO BID 03/26/17 [History] Amitriptyline HCl [Elavil] 25 mg PO HS 05/11/17 [History] Propranolol [Inderal] 40 mg PO BID 06/27/17 [History] Zolpidem [Ambien] 10 mg PO HS PRN 07/20/17 [History] ALPRAZolam [Xanax] 0.25 mg PO TID PRN tab 07/25/17 [Rx] Amoxic-Pot Clav 875-125Mg [Augmentin 875-125] 1 each PO Q12HR #14 tab 07/25/17 [ Rx] predniSONE See Taper PO DIRECTED #20 tab 07/25/17 [Rx] Follow up Appointment(s)/Referral(s): Duarte Figueredo Jr, DO [Primary Care Provider] - 08/02/17 2:30 pm Dioni Jiménez DO [Doctor of Osteopathic Medicine] - 08/05/17 3:15 pm Patient Instructions/Handouts: Prednisone (By mouth), Amoxicillin/Clavulanate Potassium (By mouth), Heart Failure (DC), COPD (Chronic Obstructive Pulmonary Disease) (DC) Activity/Diet/Wound Care/Special Instructions: Cardiac, gluten free diet No smoking, cessation information and educated regarding importance of quitting. Activity as tolerated. Home oxygen via nasal cannula Discharge Disposition: HOME SELF-CARE
[2017-07-25] MEDS: MAGNESIUM OXIDE 400 MG TAB PO SCH (12:28)
--- NOTE | 2017-07-25 13:54 | P.PN ---
Subjective Progress Note Date: 07/25/17 Principal diagnosis: COPD exacerbation Progress note dated 07/22/2017 61-year-old female who we saw yesterday. The patient came into the emergency room with complaints of shortness of breath. She apparently had quite a bit of distress in the emergency room she was admitted to the fourth floor. She has a history of significant severe COPD on home oxygen therapy cardiomyopathy and heart failure CAD previous history of myocardial infarction. The patient was transferred to the ICU because of increasing respiratory distress. The patient was placed on BiPAP at 12 and 4 and FiO2 was weaned down to 35%. She's doing much better. She was also given some Lasix. Steroids were given. We feel like her respiratory distress in part related to excessive use of narcotics and Neurontin. We stopped all of that when she came to the ICU. She is doing much better. Feeling much better. She sees my partner for her lung disease. Her ejection fraction is only 20%. She does have severe pulmonary hypertension as well. Progress note dated 07/24/2017 This is a 61-year-old female who is improving day by day. She initially came to the emergency department with complaints of increasing shortness of breath. She had both a COPD exacerbation and CHF. She has a history of significant and severe oxygen-dependent COPD, cardiomyopathy, heart failure, CAD, myocardial infarction. In addition, she has a history of secondary pulmonary hypertension osteoporosis and rest cancer. The patient was initially transferred to the intensive care unit where she received BiPAP therapy at 12 and 4 and 35%. Much of her respiratory failure with believe was related to an excess amount of Delco and Neurontin. Currently she is feeling much better. Has a very poor ejection fraction of about 20%. She sees my partner in the office. Progress note dated 07/25/2017 61-year-old female who is showing improvement day by day. She was initially admitted through the emergency department with complaints of increasing shortness of breath chest congestion cough and wheezing. She was diagnosed as having both a COPD exacerbation and acute exacerbation of congestive heart failure. She does have a history of significant and severe oxygen-dependent COPD, cardiomyopathy, CHF, CAD, myocardial infarction. The patient also suffers from secondary pulmonary hypertension, osteoporosis and breast cancer. The patient apparently was initially transferred to the intensive care unit because of impending respiratory failure, thought to be related to excess Neurontin and Delco. The patient's doing much better today. Likely could be discharged in the next 24-48 hours. Is tolerating medications well. No coughing or wheezing. No phlegm production. No fever no chills. No nausea vomiting or diarrhea. There is no chest pain. Objective - Vital Signs Vital signs: Vital Signs Temp 99.0 F 07/25/17 07:00 Pulse 72 07/25/17 11:30 Resp 18 07/25/17 07:00 BP 105/62 07/25/17 07:00 Pulse Ox 94 L 07/25/17 07:42 Intake & Output 07/24/17 07/25/17 07/25/17 18:59 06:59 18:59 Intake Total 480 400 Output Total 1700 Balance -1220 400 Weight 44.1 kg Intake: Oral 480 400 Output: Urine 1700 Other: Voiding Method Toilet Toilet # Voids 3 1 - Exam No acute distress, oriented 3. On nasal O2 at 3 L. HEENT examination is grossly unremarkable. Mucous membranes are moist. No oral lesions. Neck supple. Full range of motion. No adenopathy thyromegaly or neck vein distention. Cardiovascular examination reveals regular rhythm rate. S1-S2 normal. No S3 or S4. No discernible murmur noted. Lungs reveal diminished breath sounds. Breath sounds are equal bilaterally. This some expiratory wheezes and rhonchi. There is prolongation on forced maneuver. No crackles. Abdomen soft bowel sounds are heard. No masses or tenderness. Extremities are intact. No cyanosis clubbing or edema. Skin is without rash or lesion. Neurologic examination is brief but nonfocal. - Labs CBC & Chem 7: 07/25/17 07:08 07/25/17 07:08 Labs: Abnormal Lab Results - Last 24 Hours (Table) 07/24/17 07/24/17 07/25/17 Range/Units 17:01 20:39 07:08 WBC 17.5 H (3.8-10.6) k/uL Hgb 10.7 L (11.4-16.0) gm/dL MCH 23.3 L (25.0-35.0) pg MCHC 29.0 L (31.0-37.0) g/dL Plt Count 453 H (150-450) k/uL Neutrophils # 10.8 H (1.3-7.7) k/uL Monocytes # 1.6 H (0-1.0) k/uL Sodium (137-145) mmol/L Chloride (98-107) mmol/L Carbon Dioxide (22-30) mmol/L BUN (7-17) mg/dL Glucose (74-99) mg/dL POC Glucose (mg/dL) 161 H 120 H (75-99) mg/dL 07/25/17 Range/Units 07:08 WBC (3.8-10.6) k/uL Hgb (11.4-16.0) gm/dL MCH (25.0-35.0) pg MCHC (31.0-37.0) g/dL Plt Count (150-450) k/uL Neutrophils # (1.3-7.7) k/uL Monocytes # (0-1.0) k/uL Sodium 133 L (137-145) mmol/L Chloride 93 L (98-107) mmol/L Carbon Dioxide 31 H (22-30) mmol/L BUN 28 H (7-17) mg/dL Glucose 100 H (74-99) mg/dL POC Glucose (mg/dL) (75-99) mg/dL Microbiology - Last 24 Hours (Table) 07/20/17 23:30 Blood Culture - Preliminary Blood No Growth after 96 hours Assessment and Plan Assessment: Assessment Impending respiratory failure secondary to COPD exacerbation, which is also, treated by fluid overload/CHF in a patient with severe cardiomyopathy. We believe that much of her respiratory distress requiring admission to the intensive care unit related to excessive Delco and Neurontin. She responded very nicely to BiPAP therapy. History of CAD CHF Severe COPD Gastroesophageal reflux disease Hyperlipidemia Myocardial infarction Cardiomyopathy with an ejection fraction of 20% Breast cancer Osteoporosis Secondary pulmonary hypertension Plan: Plan dated 07/21/2017 The patient is here in the ICU. We'll get a blood gas. She was originally given Lasix. We'll make sure he is an appropriate medications including updrafts and steroids. The patient will be maintained on BiPAP. I did ask the respiratory therapist at titrate down the FiO2. Pending the blood gas, additional recommendations and suggestions are forthcoming. Prognosis is guarded. Plan dated 07/22/2017 The patient was maintained on BiPAP with settings of 12 and 4 and 35%. The patient is now on nasal O2 at 3 L and a saline IV at KVO. The patient was given DuoNeb every 4 while awake and when necessary and now his been switched to DuoNeb's 4 times a day and when necessary. She's also on Perforomist and Pulmicort 1 mg twice a day. She is on systemic corticosteroids and antibiotics. She's doing much better. She can be transferred out back to the general medical floor. We'll give her back time we'll offer pain. When she gets too much pain medication or other medications such as sedatives hypnotics narcotics and tranquilizers, she is a high risk for respiratory failure. Plan dated 07/24/2017 The patient's overall condition continues to improve. We'll increase her activity. We'll continue with her breathing medications. She'll continue to use BiPAP as needed. Further recommendations will be made based on her clinical status. Overall, her situation has improved in the last 24-48 hours. Primary service will determine discharge date. Plan dated 07/25/2017 The patient continues to improve. Possible discharge home today. The patient will follow-up in the office with her primary pulmonary doctor, Dr. Cardoso. I believe she'll see me for his only because Dr. Cardoso will be suction plate roller hand. I' ll make sure the patient gets back to him. In addition, I counseled her about the importance of ongoing smoking cessation and about the importance of using medications judiciously. She has a tiny patient. She may have had some major side effects from both the Neurontin and Delco that was prescribed to her. She seems understand. We'll follow closely. Time with Patient: Less than 30
== END 2017-07-25 13:37 | disposition home or self-care (01) | DRG 291 ==
LOC: EC 22:50 → 4MS4W 23:04 → 6ICU 07-21 11:55 → OBSVTOIN 07-21 12:20 → 5MS5E 07-22 21:12
PROVIDERS: ADMIT Family Medicine; ATTEND Family Medicine
PROC: 5A09457 Assistance with Respiratory Ventilation, 24-96 Consecutive Hours, Continuous Positive Airway Pressure (ICD-10-PCS; principal; 2017-07-21)
DX: I11.0 Hypertensive heart disease with heart failure (principal); J96.21 Acute and chronic respiratory failure with hypoxia; J84.9 Interstitial pulmonary disease, unspecified; J96.22 Acute and chronic respiratory failure with hypercapnia; J44.1 Chronic obstructive pulmonary disease with (acute) exacerbation; E78.5 Hyperlipidemia, unspecified; I50.33 Acute on chronic diastolic (congestive) heart failure; I27.29 Other secondary pulmonary hypertension; F17.210 Nicotine dependence, cigarettes, uncomplicated; F32.9 Major depressive disorder, single episode, unspecified; F41.9 Anxiety disorder, unspecified; H40.9 Unspecified glaucoma; I25.10 Atherosclerotic heart disease of native coronary artery without angina pectoris; M53.3 Sacrococcygeal disorders, not elsewhere classified; I25.2 Old myocardial infarction; I25.5 Ischemic cardiomyopathy; I73.9 Peripheral vascular disease, unspecified; K21.9 Gastro-esophageal reflux disease without esophagitis; K90.0 Celiac disease; M81.0 Age-related osteoporosis without current pathological fracture; G89.29 Other chronic pain; T39.1X5A Adverse effect of 4-Aminophenol derivatives, initial encounter; T42.6X5A Adverse effect of other antiepileptic and sedative-hypnotic drugs, initial encounter; Z79.02 Long term (current) use of antithrombotics/antiplatelets; Z79.51 Long term (current) use of inhaled steroids; Z79.82 Long term (current) use of aspirin; Z79.899 Other long term (current) drug therapy; Z99.81 Dependence on supplemental oxygen; Z95.1 Presence of aortocoronary bypass graft; Z85.3 Personal history of malignant neoplasm of breast; Z95.5 Presence of coronary angioplasty implant and graft; Y92.9 Unspecified place or not applicable
CPT/HCPCS: 36415; 36600; 71045; 72220; 80048; 80053; 81001; 82140; 82550; 82553; 82805; 83036; 83735; 83880; 84100; 84484; 85025; 85610; 85730; 87040; 87086; 87502; 93005; 94640; 94660; 94760; 96361; 96365; 96366; 96375; 96376; 99285

== ENCOUNTER 2017-08-29 10:07 | Inpatient (IN) | payer OTHER ==
--- NOTE | 2017-08-29 10:37 | ED ---
General Adult HPI - General Chief complaint: Shortness of Breath Stated complaint: SOB Time Seen by Provider: 08/29/17 10:07 Source: patient, EMS, RN notes reviewed Mode of arrival: EMS Limitations: no limitations - History of Present Illness Initial comments: This is a 61-year-old female with past medical history significant for COPD and the patient continues to smoke. Patient states this morning she woke up and her shortness of breath was much worse than normal and she was unable to get up even to go to the bathroom. She called EMS EMS states at that time she was tripoding and having significant hard time breathing she had wheezing diffusely they gave her 2 treatments and Solu-Medrol prior to arrival. Patient states she feels considerably better. Patient denies any palpitations or chest pain. Patient denies any abdominal pain. Patient denies any recent fever chills or cough. Patient denies headache patient denies lightheadedness dizziness or near syncopal episode. - Related Data Home Medications Medication Instructions Recorded Confirmed Hydrocodone/Acetaminophen 1 tab PO TID 06/24/14 08/29/17 [Hydrocodone/Acetaminophen 10-325] Cyanocobalamin [Vitamin B-12] 500 mcg PO DAILY 07/21/14 08/29/17 Multivitamins, Thera [Multivitamin 1 tab PO DAILY 07/21/14 08/29/17 (formulary)] Aspirin 81 mg PO DAILY 09/17/15 08/29/17 Vitamin E 1,000 unit PO DAILY 09/17/15 08/29/17 Albuterol Nebulized [Ventolin 2.5 mg INHALATION RT-Q4H PRN 12/04/16 08/29/17 Nebulized] Calcium Carbonate [Calcium] 600 mg PO DAILY 12/04/16 08/29/17 Magnesium Gluconate [Magonate] 1,000 mg PO DAILY 12/04/16 08/29/17 Metoprolol Succinate (ER) [Toprol 50 mg PO DAILY 02/11/17 08/29/17 XL] buPROPion XL [Wellbutrin XL] 75 mg PO DAILY 02/11/17 08/29/17 PARoxetine HCL [Paxil] 30 mg PO BID 03/26/17 08/29/17 Fludrocortisone [Florinef] 0.1 mg PO DAILY 08/29/17 08/29/17 Furosemide [Lasix] 40 mg PO BID 08/29/17 08/29/17 Gabapentin [Neurontin] 300 mg PO TID 08/29/17 08/29/17 Latanoprost [Xalatan 0.005%] 1 drop BOTH EYES HS 08/29/17 08/29/17 Oxybutynin Xl [Ditropan Xl] 5 mg PO BID 08/29/17 08/29/17 Zolpidem [Ambien] 5 mg PO HS PRN 08/29/17 08/29/17 Previous Rx's Medication Instructions Recorded Budesonide-Formot 160-4.5 Mcg 2 puff INHALATION RT-BID #1 inhaler 06/29/14 [Symbicort 160-4.5 Mcg Inhaler] Atorvastatin [Lipitor] 80 mg PO HS #30 tab 07/18/14 Nitroglycerin Sl Tabs [Nitrostat] 0.4 mg SUBLINGUAL Q5M PRN #25 tab 07/18/14 Clopidogrel [Plavix] 75 mg PO DAILY #30 tab 08/06/16 Allergies Allergy/AdvReac Type Severity Reaction Status Date / Time latanoprost Allergy Swelling Verified 08/29/17 10:15 Review of Systems ROS Statement: Those systems with pertinent positive or pertinent negative responses have been documented in the HPI. ROS Other: All systems not noted in ROS Statement are negative. Past Medical History Past Medical History: Coronary Artery Disease (CAD), Cancer, Heart Failure, COPD , Eye Disorder, GERD/Reflux, Hyperlipidemia, Myocardial Infarction ([place]), Respiratory Disorder, Vascular Disorder Additional Past Medical History / Comment(s): chronic hypoxic respiratory failure, CHF with an ejection fraction of less than 20% with significant degree of secondary pulmonary hypertension, ischemic cardiac myopathy, O2 2L/NC at HS, celiac disease,R breast cancer, osteoporosis, PAD, chronic pain L wrist ( previous injury with sx), L eye possible glaucoma, sinus problems. Last Myocardial Infarction Date:: 2014 History of Any Multi-Drug Resistant Organisms: None Reported Past Surgical History: Breast Surgery, Section, Coronary Bypass/CABG, Heart Catheterization With Stent, Orthopedic Surgery Additional Past Surgical History / Comment(s): 11/2016 CABG 4 vessel with mitral/ tricuspid surgery at [facility]-also had thoracentesis, R breast lumpectomy, L WRIST SX X3, D&C, 11-01-14 AORTAGRAM W/RUNOFF- CECILIO ILIAC STENTS, colonoscopy. Past Anesthesia/Blood Transfusion Reactions: No Reported Reaction Additional Past Anesthesia/Blood Transfusion Reaction / Comment(s): no hx blood transfusion Date of Last Stent Placement:: 2014 Past Psychological History: Anxiety, Depression Smoking Status: Current every day smoker Past Alcohol Use History: None Reported Past Drug Use History: None Reported - Past Family History Mother Family Medical History: Congestive Heart Failure (CHF), Diabetes Mellitus Additional Family Medical History / Comment(s): HEART ISSSUES. Mother of CHF at the age of 69yrs. Father Family Medical History: Blood Disorder Additional Family Medical History / Comment(s): HEMACHROMATOSIS. Father at the age of 69yrs from cirrhosis. He was not a drinker. General Exam - General Exam Comments Initial Comments: GENERAL: Patient is well-developed and well-nourished. Patient is nontoxic and well- hydrated and is in mild distress. ENT: Neck is soft and supple. No significant lymphadenopathy is noted. Oropharynx is clear. Moist mucous membranes. Neck has full range of motion without eliciting any pain. EYES: The sclera were anicteric and conjunctiva were pink and moist. Extraocular movements were intact and pupils were equal round and reactive to light. Eyelids were unremarkable. PULMONARY: Patient has decreased air movement and some slight expiratory wheeze CARDIOVASCULAR: There is a regular rate and rhythm without any murmurs gallops or rubs. ABDOMEN: Soft and nontender with normal bowel sounds. No palpable organomegaly was noted. There is no palpable pulsatile mass. SKIN: Skin is clear with no lesions or rashes and otherwise unremarkable. NEUROLOGIC: Patient is alert and oriented x3. Cranial nerves II through XII are grossly intact. Motor and sensory are also intact. Normal speech, volume and content. Symmetrical smile. MUSCULOSKELETAL: Normal extremities with adequate strength and full range of motion. No lower extremity swelling or edema. No calf tenderness. LYMPHATICS: No significant lymphadenopathy is noted PSYCHIATRIC: Normal psychiatric evaluation. Limitations: no limitations Course Vital Signs 08/29/17 08/29/17 08/29/17 10:09 11:15 11:18 Temperature 98.1 F Pulse Rate 78 76 Respiratory 26 H 20 28 H Rate Blood Pressure 158/77 134/63 O2 Sat by Pulse 96 99 Oximetry Medical Decision Making - Medical Decision Making EKG shows normal sinus rhythm at 70 bpm [place] interval is 134 QRS is 90 QT intervals 356 QTC is 45. Patient's EKG shows no ST segment elevation or depression or T wave abnormalities are noted. Chest x-ray shows no acute abnormality. Patient is going to be admitted for exacerbation of COPD. I spoke with Dr. Sukhi Melo agreed to admit the patient admitted the patient wrote admitting orders - Lab Data Result diagrams: 08/29/17 10:11 08/29/17 10:11 Lab Results 08/29/17 08/29/17 08/29/17 Range/Units 10:11 10:11 10:11 WBC 7.0 (3.8-10.6) k/uL RBC 4.12 (3.80-5.40) m/uL Hgb 9.0 L D (11.4-16.0) gm/dL Hct 30.5 L (34.0-46.0) % MCV 74.0 L D (80.0-100.0) fL MCH 21.8 L (25.0-35.0) pg MCHC 29.5 L (31.0-37.0) g/dL RDW 16.6 H (11.5-15.5) % Plt Count 445 (150-450) k/uL Neutrophils % 61 % Lymphocytes % 22 % Monocytes % 11 % Eosinophils % 2 % Basophils % 0 % Neutrophils # 4.2 (1.3-7.7) k/uL Lymphocytes # 1.5 (1.0-4.8) k/uL Monocytes # 0.8 (0-1.0) k/uL Eosinophils # 0.1 (0-0.7) k/uL Basophils # 0.0 (0-0.2) k/uL Hypochromasia Marked Poikilocytosis Slight Anisocytosis Slight Microcytosis Moderate PT (9.0-12.0) sec INR (<1.2) APTT (22.0-30.0) sec Sodium 134 L (137-145) mmol/L Potassium 3.7 (3.5-5.1) mmol/L Chloride 96 L (98-107) mmol/L Carbon Dioxide 31 H (22-30) mmol/L Anion Gap 7 mmol/L BUN 10 (7-17) mg/dL Creatinine 0.55 (0.52-1.04) mg/dL Est GFR (CKD-EPI)AfAm >90 (>60 ml/min/1.73 sqM) Est GFR (CKD-EPI)NonAf >90 (>60 ml/min/1.73 sqM) Glucose 140 H (74-99) mg/dL Calcium 9.2 (8.4-10.2) mg/dL Magnesium 2.2 (1.6-2.3) mg/dL Total Bilirubin 0.3 (0.2-1.3) mg/dL AST 43 H (14-36) U/L ALT 41 (9-52) U/L Alkaline Phosphatase 63 (38-126) U/L Total Creatine Kinase 116 (30-135) U/L CK-MB (CK-2) 4.0 H* (0.0-2.4) ng/mL CK-MB (CK-2) Rel Index 3.4 Troponin I <0.012 (0.000-0.034) ng/mL NT-Pro-B Natriuret Pep pg/mL Total Protein 5.9 L (6.3-8.2) g/dL Albumin 3.4 L (3.5-5.0) g/dL 08/29/17 08/29/17 Range/Units 10:11 10:11 WBC (3.8-10.6) k/uL RBC (3.80-5.40) m/uL Hgb (11.4-16.0) gm/dL Hct (34.0-46.0) % MCV (80.0-100.0) fL MCH (25.0-35.0) pg MCHC (31.0-37.0) g/dL RDW (11.5-15.5) % Plt Count (150-450) k/uL Neutrophils % % Lymphocytes % % Monocytes % % Eosinophils % % Basophils % % Neutrophils # (1.3-7.7) k/uL Lymphocytes # (1.0-4.8) k/uL Monocytes # (0-1.0) k/uL Eosinophils # (0-0.7) k/uL Basophils # (0-0.2) k/uL Hypochromasia Poikilocytosis Anisocytosis Microcytosis PT 10.3 (9.0-12.0) sec INR 1.1 (<1.2) APTT 23.7 (22.0-30.0) sec Sodium (137-145) mmol/L Potassium (3.5-5.1) mmol/L Chloride (98-107) mmol/L Carbon Dioxide (22-30) mmol/L Anion Gap mmol/L BUN (7-17) mg/dL Creatinine (0.52-1.04) mg/dL Est GFR (CKD-EPI)AfAm (>60 ml/min/1.73 sqM) Est GFR (CKD-EPI)NonAf (>60 ml/min/1.73 sqM) Glucose (74-99) mg/dL Calcium (8.4-10.2) mg/dL Magnesium (1.6-2.3) mg/dL Total Bilirubin (0.2-1.3) mg/dL AST (14-36) U/L ALT (9-52) U/L Alkaline Phosphatase (38-126) U/L Total Creatine Kinase (30-135) U/L CK-MB (CK-2) (0.0-2.4) ng/mL CK-MB (CK-2) Rel Index Troponin I (0.000-0.034) ng/mL NT-Pro-B Natriuret Pep 6060 pg/mL Total Protein (6.3-8.2) g/dL Albumin (3.5-5.0) g/dL Disposition Clinical Impression: COPD exacerbation Disposition: ADMITTED IP TO THIS HOSP Referrals: Duarte Figueredo Jr, [Primary Care Provider] - 1-2 days Time of Disposition: 12:26
[2017-08-29 10:50] LABS: INR 1.1 (<1.2); Partial Thromboplastin Time 23.7 sec (22.0-30.0); Prothrombin Time 10.3 sec (9.0-12.0)
[2017-08-29 10:54] LABS: ALT 41 U/L (9-52); AST 43 U/L (14-36); Albumin 3.4 g/dL (3.5-5.0); Alkaline Phosphatase 63 U/L (38-126); Anion Gap 7 mmol/L; Blood Urea Nitrogen 10 mg/dL (7-17); Calcium 9.2 mg/dL (8.4-10.2); Carbon Dioxide 31 mmol/L (22-30); Chloride 96 mmol/L (98-107); Glucose 140 mg/dL (74-99); Magnesium 2.2 mg/dL (1.6-2.3); Potassium 3.7 mmol/L (3.5-5.1); Sodium 134 mmol/L (137-145); Total Bilirubin 0.3 mg/dL (0.2-1.3); Total Protein 5.9 g/dL (6.3-8.2)
[2017-08-29 11:00] LABS: Anisocytosis Slight; Basophils % (A) 0 %; Eosinophils # (A) 0.1 k/uL (0-0.7); Eosinophils % (A) 2 %; HCT 30.5 % (34.0-46.0); Hypochromasia Marked; Lymphocytes # (A) 1.5 k/uL (1.0-4.8); Lymphocytes % (A) 22 %; MCH 21.8 pg (25.0-35.0); MCHC 29.5 g/dL (31.0-37.0); Mean Platelet Volume 6.6; Microcytosis Moderate; Monocytes # (A) 0.8 k/uL (0-1.0); Monocytes % (A) 11 %; Neutrophils # (A) 4.2 k/uL (1.3-7.7); Neutrophils % (A) 61 %; Platelet Count 445 k/uL (150-450); Poikilocytosis Slight; RBC 4.12 m/uL (3.80-5.40); RDW 16.6 % (11.5-15.5)
[2017-08-29 11:12] LABS: Creatine Kinase 116 U/L (30-135)
--- NOTE | 2017-08-29 11:16 | XR ---
EXAMINATION TYPE: XR chest 2V DATE OF EXAM: 08/29/2017 COMPARISON: 07/23/2017 HISTORY: Difficulty breathing TECHNIQUE: Frontal and lateral views of the chest are obtained. FINDINGS: There is redemonstrated and pulmonary hyperinflation and flattening the diaphragms compati ble with underlying COPD. Postoperative change the chest are unchanged from the prior. Cardiac silhou ette is upper limits normal. Scattered areas of subsegmental atelectasis are seen at the lung bases. IMPRESSION: Bibasilar subsegmental atelectasis and radiographic sequela of COPD.
[2017-08-29 11:25] LABS: Troponin I <0.012 ng/mL (0.000-0.034)
[2017-08-29] MEDS ORDERED: IPRATROPIUM-ALBUTEROL 3 ML NEB INHALATION PRN (12:27)
[2017-08-29] MEDS ORDERED: ZOLPIDEM 5 MG TAB PO PRN (13:51)
[2017-08-29] MEDS ORDERED: NITROGLYCERIN SL TABS 0.4 MG TAB SUBLINGUAL PRN (13:51)
[2017-08-29] MEDS: FUROSEMIDE 40 MG TAB PO SCH (15:54)
[2017-08-29] MEDS: PRIMIDONE 50 MG TAB PO SCH ×2 (15:55→21:47)
[2017-08-29] MEDS: GABAPENTIN 300 MG CAP PO SCH ×2 (15:55→21:46)
[2017-08-29] MEDS: IPRATROPIUM-ALBUTEROL 3 ML NEB INHALATION SCH ×2 (16:04→20:56)
[2017-08-29] MEDS: HYDROcodone/APAP 10-325MG 1 EACH TAB PO SCH ×2 (18:23→21:46)
[2017-08-29] MEDS: methylPREDNISolone SOD SUCCI 125 MG/2 ML VIAL IV SCH ×2 (18:37→23:51)
[2017-08-29] MEDS: INSULIN ASPART 100 UNIT/ML 1 ML 10 ML VIAL SQ SCH ×2 (19:01→20:51)
[2017-08-29 20:12] LABS: Glucose,Whole Blood 140 mg/dL (75-99)
[2017-08-29] MEDS: ATORVASTATIN 80 MG TAB PO SCH (20:51)
[2017-08-29] MEDS: HEPARIN SODIUM,PORCINE 5,000 UNIT/ML 1 ML VIAL SQ SCH (20:51)
[2017-08-29] MEDS: PARoxetine 10 MG TAB PO SCH (20:51)
[2017-08-29] MEDS: OXYBUTYNIN XL 5 MG TAB.ER.24 PO SCH (20:52)
[2017-08-29] MEDS ORDERED: ALPRAZolam 0.25 MG TAB PO PRN (21:20)
[2017-08-29 21:27] LABS: Hemoglobin A1C 6.4 % (4.0-6.0)
[2017-08-30] MEDS: methylPREDNISolone SOD SUCCI 125 MG/2 ML VIAL IV SCH ×4 (05:48→22:36)
[2017-08-30 07:02] LABS: Glucose,Whole Blood 103 mg/dL (75-99)
[2017-08-30] MEDS: IPRATROPIUM-ALBUTEROL 3 ML NEB INHALATION SCH ×4 (07:19→20:31)
[2017-08-30 07:34] LABS: Anisocytosis Slight; Basophils % (A) 0 %; Eosinophils # (A) 0.1 k/uL (0-0.7); Eosinophils % (A) 1 %; HCT 28.8 % (34.0-46.0); HGB 8.5 gm/dL (11.4-16.0); Hypochromasia Marked; Lymphocytes # (A) 1.7 k/uL (1.0-4.8); Lymphocytes % (A) 17 %; MCH 21.9 pg (25.0-35.0); MCHC 29.5 g/dL (31.0-37.0); MCV 74.1 fL (80.0-100.0); Mean Platelet Volume 6.4; Microcytosis Slight; Monocytes % (A) 10 %; Neutrophils # (A) 7.3 k/uL (1.3-7.7); Neutrophils % (A) 70 %; Platelet Count 466 k/uL (150-450); Poikilocytosis Slight; RBC 3.89 m/uL (3.80-5.40); RDW 16.2 % (11.5-15.5); WBC 10.4 k/uL (3.8-10.6)
[2017-08-30 07:56] LABS: ALT 39 U/L (9-52); AST 36 U/L (14-36); Alkaline Phosphatase 56 U/L (38-126); Anion Gap 6 mmol/L; Blood Urea Nitrogen 13 mg/dL (7-17); Calcium 8.8 mg/dL (8.4-10.2); Carbon Dioxide 30 mmol/L (22-30); Chloride 99 mmol/L (98-107); Glucose 89 mg/dL (74-99); Potassium 3.9 mmol/L (3.5-5.1); Sodium 135 mmol/L (137-145); Total Bilirubin 0.3 mg/dL (0.2-1.3); Total Protein 5.5 g/dL (6.3-8.2)
[2017-08-30] MEDS: INSULIN ASPART 100 UNIT/ML 1 ML 10 ML VIAL SQ SCH ×4 (08:03→20:44)
[2017-08-30] MEDS: ASPIRIN 81 MG PO SCH (08:04)
[2017-08-30] MEDS: buPROPion 75 MG TAB PO SCH (08:04)
[2017-08-30] MEDS: PANTOPRAZOLE 40 MG TABLET PO SCH (08:04)
[2017-08-30] MEDS: GABAPENTIN 300 MG CAP PO SCH ×3 (08:05→22:35)
[2017-08-30] MEDS: CLOPIDOGREL 75 MG TAB PO SCH (08:05)
[2017-08-30] MEDS: FUROSEMIDE 40 MG TAB PO SCH ×2 (08:05→13:06)
[2017-08-30] MEDS: OXYBUTYNIN XL 5 MG TAB.ER.24 PO SCH ×2 (08:06→20:34)
[2017-08-30] MEDS: METOPROLOL SUCCINATE (ER) 50 MG TAB.ER.24H PO SCH (08:06)
[2017-08-30] MEDS: PARoxetine 10 MG TAB PO SCH ×2 (08:06→20:34)
[2017-08-30] MEDS: HEPARIN SODIUM,PORCINE 5,000 UNIT/ML 1 ML VIAL SQ SCH ×3 (08:06→20:39)
[2017-08-30] MEDS: PRIMIDONE 50 MG TAB PO SCH ×3 (08:07→22:36)
[2017-08-30] MEDS: HYDROcodone/APAP 10-325MG 1 EACH TAB PO SCH ×3 (08:08→22:35)
--- NOTE | 2017-08-30 09:56 | P.HPIM ---
History of Present Illness H&P Date: 08/30/17 Chief Complaint: shortness of breath 61-year-old female who presented to the emergency room with a chief complaint of shortness of breath. The patient has a history of severe COPD and wears home oxygen and continues to smoke cigarettes daily. She states her shortness of breath increased in severity yesterday and she was extremely short of breath after she walked to the bathroom. She states she called EMS who gave her two breathing treatments. Patient denies fever or chills. Denies nausea or vomiting. Denied chest pain or pressure. Denies sputum production. The patient has been hospitalized numerous times for COPD exacerbation, most recently from 07/21/2017 until 07/25/2017. During that hospitalization the patient developed pulmonary edema and respiratory distress. She did require a BiPAP for a short period of time. Respiratory distress was also likely due to the patient's narcotics and antianxiety medications. At that time, Dr. Figueredo had spoken to the patient regarding decreasing her dosage of medications and patient was agreeable to start weaning down. However patient states she has not started weaning down her medications. The patient was also counseled regarding smoking cessation during that hospitalization. Unfortunately, the patient continues to smoke daily. The patient has a history of coronary artery disease, congestive heart failure, chronic obstructive pulmonary disease, gastroesophageal reflux disease, hyperlipidemia, myocardial infarction, and anxiety. The patient underwent a CABG 4 vessel with mitral valve and tricuspid valve surgery in November 2016. She is a current everyday cigarette smoker and states that she smokes about 4-5 cigarettes a day. She denies alcohol use. Chest x-ray: Bibasilar subsegmental atelectasis and evidence of chronic obstructive pulmonary disease Laboratory data: WBC 7.0. Hemoglobin 9.0. Platelet count 445. Sodium 134. Potassium 3.7. BUN 10. Creatinine 0.55. Glucose 140. Magnesium 2.2. CK-MB 4.0. Troponin negative 1. BNP 6060. The patient was admitted to the hospital under the care of Dr. Isbell. Consultations were placed to pulmonary. Review of Systems GENERAL: Patient denies fever. Denies chills. EYES: Denies blurred vision. Denies vision changes. Denies eye pain. EARS, NOSE, MOUTH, & THROAT: Denies headache. Denies sore throat. Denies ear pain. RESPIRATORY: Positive for shortness of breath. Denies sputum production. Denies hemoptysis. CARDIOVASCULAR: Denies chest pain or pressure. Denies palpitations. Denies arrhythmias. GASTROINTESTINAL: Denies abdominal pain. Denies diarrhea. Denies constipation. Denies nausea. Denies vomiting. Denies heartburn. Denies blood in the stool. GENITOURINARY: Denies urinary frequency. Denies burning. Denies dysuria. Denies cloudy urine. Denies blood in the urine. MUSCULOSKELETAL: Denies myalgias. Denies joint swelling. Denies decreased range of motion beyond patients baseline. INTEGUMENTARY: Denies pruitis. Denies rash. PSYCHIATRIC: Denies suicidal or homicial ideations. ENDOCRINE: Denies weight change. Denies polydipsia. Denies polyuria. HEMATOLOGIC: Denies bleeding disorders. Past Medical History Past Medical History: Coronary Artery Disease (CAD), Cancer, Heart Failure, COPD , Eye Disorder, GERD/Reflux, Hyperlipidemia, Myocardial Infarction ([place]), Respiratory Disorder, Vascular Disorder Additional Past Medical History / Comment(s): chronic hypoxic respiratory failure, CHF with an ejection fraction of less than 20% with significant degree of secondary pulmonary hypertension, ischemic cardiac myopathy, O2 2L/NC , celiac disease,R breast cancer lumpectomy and raditaion tx, osteoporosis, PAD, chronic pain L wrist (previous injury with sx), L eye glaucoma, sinus problems. Last Myocardial Infarction Date:: 2014 History of Any Multi-Drug Resistant Organisms: None Reported Past Surgical History: Breast Surgery, Section, Coronary Bypass/CABG, Heart Catheterization With Stent, Orthopedic Surgery Additional Past Surgical History / Comment(s): 11/2016 CABG 4 vessel with mitral/ tricuspid surgery at [facility]-also had thoracentesis, R breast lumpectomy, L WRIST SX X3, D&C, 11-01-14 AORTAGRAM W/RUNOFF- CECILIO ILIAC STENTS, rthectomy/balloon angioplasty lt [facility]. colonoscopy. Past Anesthesia/Blood Transfusion Reactions: No Reported Reaction Additional Past Anesthesia/Blood Transfusion Reaction / Comment(s): no hx blood transfusion Date of Last Stent Placement:: 2014 Smoking Status: Current every day smoker - Past Family History Mother Family Medical History: Congestive Heart Failure (CHF), Diabetes Mellitus Additional Family Medical History / Comment(s): HEART ISSSUES. Mother of CHF at the age of 69yrs. Father Family Medical History: Blood Disorder Additional Family Medical History / Comment(s): HEMACHROMATOSIS. Father at the age of 69yrs from cirrhosis. He was not a drinker. Medications and Allergies Home Medications Medication Instructions Recorded Confirmed Type Hydrocodone/Acetaminophen 1 tab PO TID PRN 06/24/14 08/29/17 History [Hydrocodone/Acetaminophen 10-325] Budesonide-Formot 160-4.5 Mcg 2 puff INHALATION RT-BID #1 inhaler 06/29/1408/29 Rx [Symbicort 160-4.5 Mcg Inhaler] Atorvastatin [Lipitor] 80 mg PO HS #30 tab 07/18/14 08/29/17 Rx Nitroglycerin Sl Tabs [Nitrostat] 0.4 mg SUBLINGUAL Q5M PRN #25 tab 07/18/14 Rx Cyanocobalamin [Vitamin B-12] 500 mcg PO DAILY 07/21/14 08/29/17 History Multivitamins, Thera [Multivitamin 1 tab PO DAILY 07/21/14 08/29/17 History (formulary)] Aspirin 81 mg PO DAILY 09/17/15 08/29/17 History Vitamin E 1,000 unit PO DAILY 09/17/15 08/29/17 History Clopidogrel [Plavix] 75 mg PO DAILY #30 tab 08/06/16 08/29/17 Rx Albuterol Nebulized [Ventolin 2.5 mg INHALATION RT-Q4H PRN 12/04/16 08/29/17 History Nebulized] Calcium Carbonate [Calcium] 600 mg PO DAILY 12/04/16 08/29/17 History Magnesium Gluconate [Magonate] 1,000 mg PO DAILY 12/04/16 08/29/17 History Metoprolol Succinate (ER) [Toprol 50 mg PO DAILY 02/11/17 08/29/17 History XL] buPROPion XL [Wellbutrin XL] 75 mg PO DAILY 02/11/17 08/29/17 History PARoxetine HCL [Paxil] 30 mg PO BID 03/26/17 08/29/17 History Fludrocortisone [Florinef] 0.1 mg PO DAILY 08/29/17 08/29/17 History Furosemide [Lasix] 40 mg PO BID 08/29/17 08/29/17 History Gabapentin [Neurontin] 300 mg PO TID 08/29/17 08/29/17 History Latanoprost [Xalatan 0.005%] 1 drop BOTH EYES HS 08/29/17 08/29/17 History Oxybutynin Xl [Ditropan Xl] 5 mg PO BID 08/29/17 08/29/17 History Primidone [Mysoline] 50 mg PO TID 08/29/17 08/29/17 History Propranolol [Inderal] 40 mg PO BID 08/29/17 08/29/17 History Zolpidem [Ambien] 5 mg PO HS PRN 08/29/17 08/29/17 History Allergies Allergy/AdvReac Type Severity Reaction Status Date / Time latanoprost Allergy Swelling Verified 08/29/17 10:15 Physical Exam Vitals: Vital Signs Temp Pulse Pulse Resp BP BP BP 08/30/17 07:00 98.1 F 83 18 138/76 08/29/17 23:00 98.9 F 95 15 142/81 08/29/17 21:05 85 08/29/17 20:57 83 08/29/17 18:27 98.6 F 93 16 140/67 08/29/17 17:12 97.6 F 86 20 139/60 08/29/17 15:57 96 20 117/59 08/29/17 13:25 82 08/29/17 13:13 82 08/29/17 13:06 80 19 153/72 08/29/17 11:18 28 H 08/29/17 11:15 76 20 134/63 08/29/17 10:09 98.1 F 78 26 H 158/77 Pulse Ox 08/30/17 07:00 96 08/29/17 23:00 93 L 08/29/17 21:05 08/29/17 20:57 08/29/17 18:27 97 08/29/17 17:12 94 L 08/29/17 15:57 93 L 08/29/17 13:25 08/29/17 13:13 08/29/17 13:06 98 08/29/17 11:18 08/29/17 11:15 99 08/29/17 10:09 96 Intake and Output 08/29/17 08/30/17 08/30/17 22:59 06:59 14:59 Intake Total 480 360 Balance 480 360 Intake: Oral 480 360 Other: # Voids 1 1 Weight 47.627 kg GENERAL: This is a 61-year-old female in no apparent distress at the time of examination. Pleasant and cooperative. HEENT: Head is atraumatic, normocephalic. Pupils are equal, round, and reactive to light. Sclerae anicteric. Conjunctivae are clear. Mucus membranes of the mouth are moist. Neck is supple. RESPIRATORY: Scattered expiratory wheezing. No rales auscultated. No use of accessory muscles. Patient maintaining oxygen saturation greater than 92% on 2 L nasal cannula. No chest wall tenderness is noted on palpation or with deep breathing. CARDIOVASCULAR: Regular rate and rhythm. S1 and S2 noted. No JVD noted. No S3 or S4 noted. GASTROINTESTINAL: No distention noted. Abdomen soft and round. Normal active bowel sounds auscultated x 4 quadrants. No pain or tenderness noted upon palpation. INTEGUMENTARY: No cyanosis. No jaundice. No rashes noted. No cellulitis noted. EXTREMITIES: 2+ peripheral pulses. No evidence of peripheral edema. No calf tenderness noted. NEUROLOGIC: Cranial nerves II-XII intact. PSYCHIATRIC: Awake, alert, and oriented X 3. Appropriate affect. Intact judgement and insight. Results CBC & Chem 7: 08/30/17 07:03 08/30/17 07:03 Labs: Abnormal Lab Results - Last 24 Hours (Table) 08/29/17 08/29/17 08/29/17 Range/Units 10:11 10:11 10:11 Hgb 9.0 L D (11.4-16.0) gm/dL Hct 30.5 L (34.0-46.0) % MCV 74.0 L D (80.0-100.0) fL MCH 21.8 L (25.0-35.0) pg MCHC 29.5 L (31.0-37.0) g/dL RDW 16.6 H (11.5-15.5) % Plt Count (150-450) k/uL Sodium 134 L (137-145) mmol/L Chloride 96 L (98-107) mmol/L Carbon Dioxide 31 H (22-30) mmol/L Creatinine (0.52-1.04) mg/dL Glucose 140 H (74-99) mg/dL POC Glucose (mg/dL) (75-99) mg/dL Hemoglobin A1c (4.0-6.0) % AST 43 H (14-36) U/L CK-MB (CK-2) 4.0 H* (0.0-2.4) ng/mL Total Protein 5.9 L (6.3-8.2) g/dL Albumin 3.4 L (3.5-5.0) g/dL 08/29/17 08/29/17 08/30/17 Range/Units 10:11 20:06 07:00 Hgb (11.4-16.0) gm/dL Hct (34.0-46.0) % MCV (80.0-100.0) fL MCH (25.0-35.0) pg MCHC (31.0-37.0) g/dL RDW (11.5-15.5) % Plt Count (150-450) k/uL Sodium (137-145) mmol/L Chloride (98-107) mmol/L Carbon Dioxide (22-30) mmol/L Creatinine (0.52-1.04) mg/dL Glucose (74-99) mg/dL POC Glucose (mg/dL) 140 H 103 H (75-99) mg/dL Hemoglobin A1c 6.4 H (4.0-6.0) % AST (14-36) U/L CK-MB (CK-2) (0.0-2.4) ng/mL Total Protein (6.3-8.2) g/dL Albumin (3.5-5.0) g/dL 08/30/17 08/30/17 Range/Units 07:03 07:03 Hgb 8.5 L (11.4-16.0) gm/dL Hct 28.8 L (34.0-46.0) % MCV 74.1 L (80.0-100.0) fL MCH 21.9 L (25.0-35.0) pg MCHC 29.5 L (31.0-37.0) g/dL RDW 16.2 H (11.5-15.5) % Plt Count 466 H (150-450) k/uL Sodium 135 L (137-145) mmol/L Chloride (98-107) mmol/L Carbon Dioxide (22-30) mmol/L Creatinine 0.51 L (0.52-1.04) mg/dL Glucose (74-99) mg/dL POC Glucose (mg/dL) (75-99) mg/dL Hemoglobin A1c (4.0-6.0) % AST (14-36) U/L CK-MB (CK-2) (0.0-2.4) ng/mL Total Protein 5.5 L (6.3-8.2) g/dL Albumin 3.0 L (3.5-5.0) g/dL Thrombosis Risk Factor Assmnt - Choose All That Apply Any of the Below Risk Factors Present?: Yes Each Factor Represents 1 point: Abnormal pulmonary function (COPD) Other Risk Factors: Yes Each Risk Factor Represents 2 Points: Age 61-74 years, Malignancy Other congenital or acquired thrombophilia - If yes, enter type in comment: No Thrombosis Risk Factor Assessment Total Risk Factor Score: 5 Thrombosis Risk Factor Assessment Level: High Risk Assessment and Plan Plan: ASSESSMENT: Acute exacerbation of chronic obstructive pulmonary disease Acute on chronic hypoxic respiratory failure, requiring home oxygen, secondary to COPD Chronic diastolic congestive heart failure, ejection fraction 50-55% Coronary artery disease with previous myocardial infarction History of CABG 4 with mitral and tricuspid valve surgery in November 2016 Pulmonary hypertension Gastroesophageal reflux disease Hyperlipidemia Generalized anxiety disorder Depression, unspecified Nicotine dependence, patient is a current everyday cigarette smoker PLAN: Dr. Jiménez on consult. Appreciate recommendations and input Continue IV steroids: Solu-Medrol 60 mg every 6 hours Begin empiric antibiotics in the form of Levaquin 500 mg by mouth daily Incentive spirometer 10 times an hour while awake Breathing treatments QID scheduled Decrease patient's Xanax to TID PRN instead of QID Monitor respiratory status. Hold medications if patient starts to become lethargic Encourage smoking cessation Capillary blood glucose accu-checks AC/HS NovoLog sliding scale insulin coverage AC/HS Home meds as appropriate Monitor labs GI prophylaxis: Protonix 40 mg PO Daily DVT prophylaxis: Heparin 5000 units subcu every 12 hours Monitor vital signs and address as appropriate Discharge planning: Patient to return home when stable Further recommendations pending patient's course Nurse practitioner note has been reviewed by physician. Signing provider agrees with the documented findings, assessment, and plan of care.
[2017-08-30 11:21] LABS: Glucose,Whole Blood 104 mg/dL (75-99)
--- NOTE | 2017-08-30 12:28 | P.CNPUL ---
History of Present Illness Consult date: 08/30/17 Reason for consult: dyspnea, cough, COPD, hypoxemia Chief complaint: Shortness of breath/difficulty in breathing History of present illness: Consult dated 08/30/2017 This is a 61-year-old female well-known to our service. She has multiple admissions for COPD exacerbations. Unfortunately, she continues to smoke cigarettes. She comes into the hospital complaining of being short of breath particularly on exertion. The patient states that she was wheezing and coughing. Producing a small amount of phlegm. The patient apparently did receive some Solu-Medrol her Depo-Medrol by EMS on her on transportation. She was feeling better when she was seen in the emergency room by Dr. Merino. Currently she looks pretty much at baseline. She is short of breath on exertion. Today in the room all she was talking about something for anxiety, i.e. her Xanax and something for pain i.e. her Orgas. Kathy was in the room with me. Kathy is her nurse. She states the patient's been complaining and asking for pain medication and anxiety medication all day so far. Earlier was given some Orgas and fell asleep. Seem to be in no distress. Again, she looks pretty much at baseline. She is wearing oxygen therapy. Review of Systems A 12 point review of systems is positive for shortness of breath on any activity. In addition shot, she has chest tightness wheezing cough with minimal phlegm production. She is O2 dependent. Past Medical History Past Medical History: Coronary Artery Disease (CAD), Cancer, Heart Failure, COPD , Eye Disorder, GERD/Reflux, Hyperlipidemia, Myocardial Infarction (RI), Respiratory Disorder, Vascular Disorder Additional Past Medical History / Comment(s): chronic hypoxic respiratory failure, CHF with an ejection fraction of less than 20% with significant degree of secondary pulmonary hypertension, ischemic cardiac myopathy, O2 2L/NC , celiac disease,R breast cancer lumpectomy and raditaion tx, osteoporosis, PAD, chronic pain L wrist (previous injury with sx), L eye glaucoma, sinus problems. Last Myocardial Infarction Date:: 2014 History of Any Multi-Drug Resistant Organisms: None Reported Past Surgical History: Breast Surgery, Section, Coronary Bypass/CABG, Heart Catheterization With Stent, Orthopedic Surgery Additional Past Surgical History / Comment(s): 11/2016 CABG 4 vessel with mitral/ tricuspid surgery at [facility]-also had thoracentesis, R breast lumpectomy, L WRIST SX X3, D&C, 11-01-14 AORTAGRAM W/RUNOFF- CECILIO ILIAC STENTS, rthectomy/balloon angioplasty lt sfa. colonoscopy. Past Anesthesia/Blood Transfusion Reactions: No Reported Reaction Additional Past Anesthesia/Blood Transfusion Reaction / Comment(s): no hx blood transfusion Date of Last Stent Placement:: 2014 Smoking Status: Current every day smoker - Past Family History Mother Family Medical History: Congestive Heart Failure (CHF), Diabetes Mellitus Additional Family Medical History / Comment(s): HEART ISSSUES. Mother of CHF at the age of 69yrs. Father Family Medical History: Blood Disorder Additional Family Medical History / Comment(s): HEMACHROMATOSIS. Father at the age of 69yrs from cirrhosis. He was not a drinker. Medications and Allergies Home Medications Medication Instructions Recorded Confirmed Type Hydrocodone/Acetaminophen 1 tab PO TID PRN 06/24/14 08/29/17 History [Hydrocodone/Acetaminophen 10-325] Budesonide-Formot 160-4.5 Mcg 2 puff INHALATION RT-BID #1 inhaler 06/29/1408/29 Rx [Symbicort 160-4.5 Mcg Inhaler] Atorvastatin [Lipitor] 80 mg PO HS #30 tab 07/18/14 08/29/17 Rx Nitroglycerin Sl Tabs [Nitrostat] 0.4 mg SUBLINGUAL Q5M PRN #25 tab 07/18/14 Rx Cyanocobalamin [Vitamin B-12] 500 mcg PO DAILY 07/21/14 08/29/17 History Multivitamins, Thera [Multivitamin 1 tab PO DAILY 07/21/14 08/29/17 History (formulary)] Aspirin 81 mg PO DAILY 09/17/15 08/29/17 History Vitamin E 1,000 unit PO DAILY 09/17/15 08/29/17 History Clopidogrel [Plavix] 75 mg PO DAILY #30 tab 08/06/16 08/29/17 Rx Albuterol Nebulized [Ventolin 2.5 mg INHALATION RT-Q4H PRN 12/04/16 08/29/17 History Nebulized] Calcium Carbonate [Calcium] 600 mg PO DAILY 12/04/16 08/29/17 History Magnesium Gluconate [Magonate] 1,000 mg PO DAILY 12/04/16 08/29/17 History Metoprolol Succinate (ER) [Toprol 50 mg PO DAILY 02/11/17 08/29/17 History XL] buPROPion XL [Wellbutrin XL] 75 mg PO DAILY 02/11/17 08/29/17 History PARoxetine HCL [Paxil] 30 mg PO BID 03/26/17 08/29/17 History Fludrocortisone [Florinef] 0.1 mg PO DAILY 08/29/17 08/29/17 History Furosemide [Lasix] 40 mg PO BID 08/29/17 08/29/17 History Gabapentin [Neurontin] 300 mg PO TID 08/29/17 08/29/17 History Latanoprost [Xalatan 0.005%] 1 drop BOTH EYES HS 08/29/17 08/29/17 History Oxybutynin Xl [Ditropan Xl] 5 mg PO BID 08/29/17 08/29/17 History Primidone [Mysoline] 50 mg PO TID 08/29/17 08/29/17 History Propranolol [Inderal] 40 mg PO BID 08/29/17 08/29/17 History Zolpidem [Ambien] 5 mg PO HS PRN 08/29/17 08/29/17 History Allergies Allergy/AdvReac Type Severity Reaction Status Date / Time latanoprost Allergy Swelling Verified 08/29/17 10:15 Physical Exam Osteopathic Statement: *. No significant issues noted on an osteopathic structural exam other than those noted in the History and Physical/Consult. Vitals: Vital Signs Temp Pulse Pulse Resp BP BP BP 08/30/17 11:17 85 08/30/17 11:08 85 08/30/17 07:00 98.1 F 83 18 138/76 08/29/17 23:00 98.9 F 95 15 142/81 08/29/17 21:05 85 08/29/17 20:57 83 08/29/17 18:27 98.6 F 93 16 140/67 08/29/17 17:12 97.6 F 86 20 139/60 08/29/17 15:57 96 20 117/59 08/29/17 13:25 82 08/29/17 13:13 82 08/29/17 13:06 80 19 153/72 Pulse Ox 08/30/17 11:17 08/30/17 11:08 08/30/17 07:00 96 08/29/17 23:00 93 L 08/29/17 21:05 08/29/17 20:57 08/29/17 18:27 97 08/29/17 17:12 94 L 08/29/17 15:57 93 L 08/29/17 13:25 08/29/17 13:13 08/29/17 13:06 98 Intake and Output 08/29/17 08/30/17 08/30/17 22:59 06:59 14:59 Intake Total 480 360 Balance 480 360 Intake: Oral 480 360 Other: # Voids 1 1 Weight 47.627 kg No acute distress, oriented 3. She is wearing nasal O2. HEENT examination is grossly unremarkable. Mucous membranes are moist. No oral lesions. Neck supple. Full range of motion. No adenopathy thyromegaly or neck vein distention. Cardiovascular examination reveals regular rhythm rate. S1-S2 normal. No S3 or S4. No discernible murmur noted. Heart sounds are distant. Lungs reveal severely diminished breath sounds throughout. A few scattered rhonchi and wheezes. Breath sounds are diminished. There is prolongation on forced maneuver. Abdomen soft bowel sounds are heard. No masses or tenderness. Extremities are intact. No cyanosis clubbing or edema. Skin is without rash or lesion. Neurologic examination is brief but nonfocal. Results - Laboratory Findings CBC and BMP: 08/30/17 07:03 08/30/17 07:03 PT/INR, D-dimer PT 10.3 sec (9.0-12.0) 08/29/17 10:11 INR 1.1 (<1.2) 08/29/17 10:11 Abnormal lab findings: Abnormal Labs 08/29/17 08/29/17 08/29/17 10:11 10:11 10:11 Hgb 9.0 L D Hct 30.5 L MCV 74.0 L D MCH 21.8 L MCHC 29.5 L RDW 16.6 H Plt Count Sodium 134 L Chloride 96 L Carbon Dioxide 31 H Creatinine Glucose 140 H POC Glucose (mg/dL) Hemoglobin A1c AST 43 H CK-MB (CK-2) 4.0 H* Total Protein 5.9 L Albumin 3.4 L 08/29/17 08/29/17 08/30/17 10:11 20:06 07:00 Hgb Hct MCV MCH MCHC RDW Plt Count Sodium Chloride Carbon Dioxide Creatinine Glucose POC Glucose (mg/dL) 140 H 103 H Hemoglobin A1c 6.4 H AST CK-MB (CK-2) Total Protein Albumin 08/30/17 08/30/17 08/30/17 07:03 07:03 11:15 Hgb 8.5 L Hct 28.8 L MCV 74.1 L MCH 21.9 L MCHC 29.5 L RDW 16.2 H Plt Count 466 H Sodium 135 L Chloride Carbon Dioxide Creatinine 0.51 L Glucose POC Glucose (mg/dL) 104 H Hemoglobin A1c AST CK-MB (CK-2) Total Protein 5.5 L Albumin 3.0 L - Diagnostic Findings Chest x-ray: image reviewed (Chest x-ray shows some minimal basilar atelectasis without berry infiltrates. She does have evidence of COPD on chest x-ray) Assessment and Plan Assessment: Assessment COPD exacerbation complicated by mild purulent tracheobronchitis History of CAD History of congestive heart failure Previous history of myocardial infarction History of hyperlipidemia History of gastroesophageal reflux disease History of hypoxemic respiratory failure History of cardiomyopathy with an ejection fraction at 20% History of secondary pulmonary hypertension Breast cancer by history History of osteoporosis Ongoing tobacco use with nicotine addiction Plan: Plan dated 08/30/2017 The patient's medications are reviewed. She looks very stable to me looks pretty much at baseline. She apparently was quite short of breath last night when she arrived in the emergency department. Seemed to be doing a lot better currently. The patient seems to be fixated on her Xanax and mother not she was can get it and also her pain medication whether or not she was getting get that. Kathy, her nurse tells me that she's been giving her her medications including Xanax and Orgas. I review her pulmonary medications. Additional recommendations and suggestions are forthcoming. Prognosis is guarded given the fact she continues to smoke cigarettes. Time with Patient: Greater than 30
[2017-08-30] MEDS: LEVOFLOXACIN 500 MG TAB PO SCH (13:08)
[2017-08-30 17:21] LABS: Glucose,Whole Blood 131 mg/dL (75-99)
[2017-08-30] MEDS: SYMBICORT 160-4.5 MCG INHALER INHALATION SCH (20:31)
[2017-08-30] MEDS: ATORVASTATIN 80 MG TAB PO SCH (20:34)
[2017-08-30 20:35] LABS: Glucose,Whole Blood 195 mg/dL (75-99)
[2017-08-30] MEDS: ALPRAZolam 0.25 MG TAB PO PRN (20:39)
[2017-08-31] MEDS: methylPREDNISolone SOD SUCCI 125 MG/2 ML VIAL IV SCH (05:56)
[2017-08-31 07:23] VITALS: BP 141/79; TEMP 97.6
[2017-08-31 07:36] LABS: Glucose,Whole Blood 132 mg/dL (75-99)
[2017-08-31] MEDS: INSULIN ASPART 100 UNIT/ML 1 ML 10 ML VIAL SQ SCH ×2 (08:56→13:05)
[2017-08-31] MEDS: PANTOPRAZOLE 40 MG TABLET PO SCH (08:59)
[2017-08-31] MEDS: ASPIRIN 81 MG PO SCH (08:59)
[2017-08-31] MEDS: buPROPion 75 MG TAB PO SCH (08:59)
[2017-08-31] MEDS: CLOPIDOGREL 75 MG TAB PO SCH (08:59)
[2017-08-31] MEDS: FUROSEMIDE 40 MG TAB PO SCH (09:00)
[2017-08-31] MEDS: HYDROcodone/APAP 10-325MG 1 EACH TAB PO SCH (09:00)
[2017-08-31] MEDS: GABAPENTIN 300 MG CAP PO SCH (09:00)
[2017-08-31] MEDS: HEPARIN SODIUM,PORCINE 5,000 UNIT/ML 1 ML VIAL SQ SCH (09:00)
[2017-08-31] MEDS: METOPROLOL SUCCINATE (ER) 50 MG TAB.ER.24H PO SCH (09:01)
[2017-08-31] MEDS: OXYBUTYNIN XL 5 MG TAB.ER.24 PO SCH (09:02)
[2017-08-31] MEDS: PRIMIDONE 50 MG TAB PO SCH (09:02)
[2017-08-31] MEDS: PARoxetine 10 MG TAB PO SCH (09:02)
[2017-08-31] MEDS: LEVOFLOXACIN 500 MG TAB PO SCH (09:03)
[2017-08-31] MEDS: SYMBICORT 160-4.5 MCG INHALER INHALATION SCH (09:42)
[2017-08-31] MEDS: IPRATROPIUM-ALBUTEROL 3 ML NEB INHALATION SCH ×2 (09:43→12:16)
[2017-08-31 10:31] VITALS: RESP 20
[2017-08-31 12:08] LABS: Glucose,Whole Blood 221 mg/dL (75-99)
--- NOTE | 2017-08-31 12:10 | P.DS ---
Providers Date of admission: 08/31/17 11:16 Expected date of discharge: 08/31/17 Attending physician: Duarte Figueredo Consults: 08/29/17 12:27 Consult Physician Routine Consulting Provider: Jessica Cardoso Consult Reason/Comments: COPD exacerbation Do you want consulting provider notified?: Yes Primary care physician: [facility] Course: 61-year-old female who presented to the emergency room with a chief complaint of shortness of breath. The patient has a history of severe COPD and wears home oxygen and continues to smoke cigarettes daily. She states her shortness of breath increased in severity yesterday and she was extremely short of breath after she walked to the bathroom. She states she called EMS who gave her two breathing treatments. Patient denies fever or chills. Denies nausea or vomiting. Denied chest pain or pressure. Denies sputum production. The patient has been hospitalized numerous times for COPD exacerbation, most recently from 07/21/2017 until 07/25/2017. During that hospitalization the patient developed pulmonary edema and respiratory distress. She did require a BiPAP for a short period of time. Respiratory distress was also likely due to the patient's narcotics and antianxiety medications. At that time, Dr. Figueredo had spoken to the patient regarding decreasing her dosage of medications and patient was agreeable to start weaning down. However patient states she has not started weaning down her medications. The patient was also counseled regarding smoking cessation during that hospitalization. Unfortunately, the patient continues to smoke daily. The patient has a history of coronary artery disease, congestive heart failure, chronic obstructive pulmonary disease, gastroesophageal reflux disease, hyperlipidemia, myocardial infarction, and anxiety. The patient underwent a CABG 4 vessel with mitral valve and tricuspid valve surgery in November 2016. She is a current everyday cigarette smoker and states that she smokes about 4-5 cigarettes a day. She denies alcohol use. Chest x-ray: Bibasilar subsegmental atelectasis and evidence of chronic obstructive pulmonary disease Laboratory data: WBC 7.0. Hemoglobin 9.0. Platelet count 445. Sodium 134. Potassium 3.7. BUN 10. Creatinine 0.55. Glucose 140. Magnesium 2.2. CK-MB 4.0. Troponin negative 1. BNP 6060. The patient was admitted to the hospital under the care of Dr. Isbell. Consultations were placed to pulmonary. The patient was started on IV steroids during hospitalization. The patient was also receiving DuoNeb breathing treatments and Symbicort. She was evaluated by conservation technician. Patient steroids were weaned to 40 mg IV. Patient is to begin prednisone taper at the time of discharge. The patient was placed on empiric antibiotic the form of Levaquin. Patient's respiratory status has improved and she has returned back to her baseline respiratory status. The patient was deemed stable for discharge per Dr. Isbell. She is to follow up on an outpatient basis. Prescriptions for prednisone taper and Levaquin were sent to the patient's preferred pharmacy. She is to resume all previous home medications. Patient was encouraged to stop smoking. Patient also educated on the importance of decreasing/weaning down on the amount of narcotics and antianxiety medication. Patient verbalized understanding. DISCHARGE DIAGNOSIS: Acute exacerbation of chronic obstructive pulmonary disease, improved at the time of discharge Acute on chronic hypoxic respiratory failure, requiring home oxygen, secondary to COPD, improved at time of discharge Chronic diastolic congestive heart failure, ejection fraction 50-55% Coronary artery disease with previous myocardial infarction History of CABG 4 with mitral and tricuspid valve surgery in November 2016 Pulmonary hypertension Gastroesophageal reflux disease Hyperlipidemia Generalized anxiety disorder Depression, unspecified Nicotine dependence, patient is a current everyday cigarette smoker Nurse practitioner note has been reviewed by physician. Signing provider agrees with the documented findings, assessment, and plan of care. Plan - Discharge Summary Discharge Rx Participant: No New Discharge Prescriptions: New Levofloxacin [Levaquin] 500 mg PO DAILY #7 tab predniSONE See Taper PO DIRECTED #30 tab Continue Hydrocodone/Acetaminophen [Hydrocodone/Acetaminophen 10-325] 1 tab PO TID PRN PRN Reason: Pain Budesonide-Formot 160-4.5 Mcg [Symbicort 160-4.5 Mcg Inhaler] 2 puff INHALATION RT-BID #1 inhaler Atorvastatin [Lipitor] 80 mg PO HS #30 tab Nitroglycerin Sl Tabs [Nitrostat] 0.4 mg SUBLINGUAL Q5M PRN #25 tab PRN Reason: Chest Pain Cyanocobalamin [Vitamin B-12] 500 mcg PO DAILY Multivitamins, Thera [Multivitamin (formulary)] 1 tab PO DAILY Vitamin E 1,000 unit PO DAILY Aspirin 81 mg PO DAILY Clopidogrel [Plavix] 75 mg PO DAILY #30 tab Albuterol Nebulized [Ventolin Nebulized] 2.5 mg INHALATION RT-Q4H PRN PRN Reason: Shortness Of Breath Calcium Carbonate [Calcium] 600 mg PO DAILY Magnesium Gluconate [Magonate] 1,000 mg PO DAILY Metoprolol Succinate (ER) [Toprol XL] 50 mg PO DAILY buPROPion XL [Wellbutrin XL] 75 mg PO DAILY PARoxetine HCL [Paxil] 30 mg PO BID Oxybutynin Xl [Ditropan XL] 5 mg PO BID Zolpidem [Ambien] 5 mg PO HS PRN PRN Reason: Insomnia Latanoprost [Xalatan 0.005%] 1 drop BOTH EYES HS Fludrocortisone [Florinef] 0.1 mg PO DAILY Gabapentin [Neurontin] 300 mg PO TID Furosemide [Lasix] 40 mg PO BID Propranolol [Inderal] 40 mg PO BID Primidone [Mysoline] 50 mg PO TID Discharge Medication List Hydrocodone/Acetaminophen [Hydrocodone/Acetaminophen 10-325] 1 tab PO TID PRN [History] Budesonide-Formot 160-4.5 Mcg [Symbicort 160-4.5 Mcg Inhaler] 2 puff INHALATION RT-BID #1 inhaler 06/29/14 [Rx] Atorvastatin [Lipitor] 80 mg PO HS #30 tab 07/18/14 [Rx] Nitroglycerin Sl Tabs [Nitrostat] 0.4 mg SUBLINGUAL Q5M PRN #25 tab 07/18/14 [Rx ] Cyanocobalamin [Vitamin B-12] 500 mcg PO DAILY 07/21/14 [History] Multivitamins, Thera [Multivitamin (formulary)] 1 tab PO DAILY 07/21/14 [History ] Aspirin 81 mg PO DAILY 09/17/15 [History] Vitamin E 1,000 unit PO DAILY 09/17/15 [History] Clopidogrel [Plavix] 75 mg PO DAILY #30 tab 08/06/16 [Rx] Albuterol Nebulized [Ventolin Nebulized] 2.5 mg INHALATION RT-Q4H PRN 12/04/16 [ History] Calcium Carbonate [Calcium] 600 mg PO DAILY 12/04/16 [History] Magnesium Gluconate [Magonate] 1,000 mg PO DAILY 12/04/16 [History] Metoprolol Succinate (ER) [Toprol XL] 50 mg PO DAILY 02/11/17 [History] buPROPion XL [Wellbutrin XL] 75 mg PO DAILY 02/11/17 [History] PARoxetine HCL [Paxil] 30 mg PO BID 03/26/17 [History] Fludrocortisone [Florinef] 0.1 mg PO DAILY 08/29/17 [History] Furosemide [Lasix] 40 mg PO BID 08/29/17 [History] Gabapentin [Neurontin] 300 mg PO TID 08/29/17 [History] Latanoprost [Xalatan 0.005%] 1 drop BOTH EYES HS 08/29/17 [History] Oxybutynin Xl [Ditropan XL] 5 mg PO BID 08/29/17 [History] Primidone [Mysoline] 50 mg PO TID 08/29/17 [History] Propranolol [Inderal] 40 mg PO BID 08/29/17 [History] Zolpidem [Ambien] 5 mg PO HS PRN 08/29/17 [History] Levofloxacin [Levaquin] 500 mg PO DAILY #7 tab 08/31/17 [Rx] predniSONE See Taper PO DIRECTED #30 tab 08/31/17 [Rx] Follow up Appointment(s)/Referral(s): Duarte Figueredo Jr, DO [Primary Care Provider] - 1 Week Dioni Jiménez DO [Doctor of Osteopathic Medicine] - 2 Weeks Discharge Disposition: HOME SELF-CARE
[2017-08-31 12:28] VITALS: PULSE 80
[2017-08-31] MEDS: ALPRAZolam 0.25 MG TAB PO PRN (13:06)
[2017-08-31] MEDS ORDERED: methylPREDNISolone SOD SUCCI 40 MG/ML 1 ML VIAL IV ONE (14:00)
--- NOTE | 2017-08-31 14:58 | P.PN ---
Subjective Progress Note Date: 08/31/17 Principal diagnosis: COPD exacerbation complicated by mild purulent tracheobronchitis This is a 61-year-old female well-known to our service. She has multiple admissions for COPD exacerbations. Unfortunately, she continues to smoke cigarettes. She comes into the hospital complaining of being short of breath particularly on exertion. The patient states that she was wheezing and coughing. Producing a small amount of phlegm. The patient apparently did receive some Solu-Medrol her Depo-Medrol by EMS on her on transportation. She was feeling better when she was seen in the emergency room by Dr. Merino. Currently she looks pretty much at baseline. She is short of breath on exertion. Today in the room all she was talking about something for anxiety, i.e. her Xanax and something for pain i.e. her [place]. Kathy was in the room with me. Kathy is her nurse. She states the patient's been complaining and asking for pain medication and anxiety medication all day so far. Earlier was given some [place] and fell asleep. Seem to be in no distress. Again, she looks pretty much at baseline. She is wearing oxygen therapy. On 08/31/2017 patient seen in follow-up. She reports further improvement with her dyspnea, chest congestion and wheezing. She is at her baseline. No acute events overnight, vital signs are stable, patient is afebrile. She is on 2 L per nasal cannula O2 sat at 93%. Lung sounds are positive for a few rales, but no wheezing noted. Patient is stable for discharge home today, on outpatient course of Levaquin, prednisone taper, and her maintenance inhalers and nebulizers. Follow-up with Dr. Jiménez in one week Objective - Vital Signs Vital signs: Vital Signs Temp 97.6 F 08/31/17 07:22 Pulse 80 08/31/17 12:28 Resp 20 08/31/17 10:18 BP 141/79 08/31/17 07:22 Pulse Ox 93 L 08/31/17 07:22 Intake & Output 08/30/17 08/31/17 08/31/17 18:59 06:59 18:59 Intake Total 2160 Balance 2160 Intake: Oral 2160 Other: Voiding Method Toilet Toilet # Voids 3 2 - Exam GENERAL EXAM: Alert, frail-looking 61-year-old white female, comfortable in no apparent distress. HEAD: Normocephalic/atraumatic. EYES: Normal reaction of pupils, equal size. Conjunctiva pink, sclera white. NOSE: Clear with pink turbinates. THROAT: No erythema or exudates. NECK: No masses, no JVD, no thyroid enlargement, no adenopathy. CHEST: No chest wall deformity. Symmetrical expansion. LUNGS: Equal air entry with a few scattered crackles, but no wheeze, rhonchi or dullness. CVS: Regular rate and rhythm, normal S1 and S2, no gallops, no murmurs, no rubs ABDOMEN: Soft, nontender. No hepatosplenomegaly, normal bowel sounds, no guarding or rigidity. EXTREMITIES: No clubbing, no edema, no cyanosis, 2+ pulses and upper and lower extremities. MUSCULOSKELETAL: Muscle strength and tone normal. SPINE: No scoliosis or deformity SKIN: No rashes CENTRAL NERVOUS SYSTEM: Alert and oriented -3. No focal deficits, tone is normal in all 4 extremities. PSYCHIATRIC: Alert and oriented -3. Appropriate affect. Intact judgment and insight. - Labs CBC & Chem 7: 08/30/17 07:03 08/30/17 07:03 Labs: Abnormal Lab Results - Last 24 Hours (Table) 08/30/17 08/30/17 08/31/17 Range/Units 17:18 20:12 07:15 POC Glucose (mg/dL) 131 H 195 H 132 H (75-99) mg/dL 08/31/17 Range/Units 11:59 POC Glucose (mg/dL) 221 H (75-99) mg/dL Assessment and Plan Plan: Assessment: COPD exacerbation complicated by mild purulent tracheobronchitis History of CAD History of congestive heart failure Previous history of myocardial infarction History of hyperlipidemia History of gastroesophageal reflux disease History of hypoxemic respiratory failure History of cardiomyopathy with an ejection fraction at 20% History of secondary pulmonary hypertension Breast cancer by history History of osteoporosis Ongoing tobacco use with nicotine addiction Plan: Patient works improvement in terms of dyspnea, wheezing, chest congestion. She is at her baseline. Vital signs are stable, no acute events overnight. She is tolerating ambulation, able for discharge home from pulmonary standpoint. Follow-up with Dr. Jiménez in the office in 7-10 days I performed a history & physical examination of the patient and discussed their management with my nurse practitioner, Lia Armando. I reviewed the nurse practitioner's note and agree with the documented findings and plan of care. Lung sounds are positive a few scattered rales. The findings and the impression was discussed with the patient. I attest to the documentation by the nurse practitioner. Time with Patient: Less than 30
== END 2017-08-31 15:00 | disposition home or self-care (01) | DRG 190 ==
LOC: EC 10:07 → 5MS5E 12:27 → OBSVTOIN 08-31 11:16
PROVIDERS: ADMIT Family Medicine; ATTEND Family Medicine
DX: J44.1 Chronic obstructive pulmonary disease with (acute) exacerbation (principal); J96.21 Acute and chronic respiratory failure with hypoxia; I27.29 Other secondary pulmonary hypertension; I50.32 Chronic diastolic (congestive) heart failure; E78.5 Hyperlipidemia, unspecified; F17.210 Nicotine dependence, cigarettes, uncomplicated; F32.9 Major depressive disorder, single episode, unspecified; H40.9 Unspecified glaucoma; I25.10 Atherosclerotic heart disease of native coronary artery without angina pectoris; I25.2 Old myocardial infarction; K21.9 Gastro-esophageal reflux disease without esophagitis; K90.0 Celiac disease; M81.0 Age-related osteoporosis without current pathological fracture; Z79.02 Long term (current) use of antithrombotics/antiplatelets; Z79.51 Long term (current) use of inhaled steroids; Z79.82 Long term (current) use of aspirin; Z79.899 Other long term (current) drug therapy; Z82.49 Family history of ischemic heart disease and other diseases of the circulatory system; Z83.3 Family history of diabetes mellitus; Z85.3 Personal history of malignant neoplasm of breast; Z95.1 Presence of aortocoronary bypass graft; Z99.81 Dependence on supplemental oxygen; F41.1 Generalized anxiety disorder; I25.5 Ischemic cardiomyopathy
CPT/HCPCS: 36415; 71046; 80053; 82550; 82553; 83036; 83735; 83880; 84484; 85025; 85610; 85730; 93005; 94640; 99285

== ENCOUNTER 2017-09-16 10:35 | Observation (INO) | payer OTHER ==
[2017-09-16] MEDS ORDERED: ALBUTEROL NEBULIZED 2.5 MG/3 ML INHALATION STA (10:40)
[2017-09-16] MEDS ORDERED: IPRATROPIUM 0.5 MG/2.5 ML NEBU INHALATION STA (10:40)
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
--- NOTE | 2017-09-16 11:15 | XR ---
EXAMINATION TYPE: XR chest 2V DATE OF EXAM: 09/16/2017 COMPARISON: 08/29/2017 INDICATION: Difficulty breathing lethargic TECHNIQUE: Frontal and lateral views of the chest are obtained. FINDINGS: The heart size is normal. The pulmonary vasculature is slightly prominent. No suspicious focal consolidation. There is some mild subsegmental atelectasis at the right base. Bennett rnotomy wires are present from previous cardiac valve surgery. IMPRESSION: 1. Mild subsegmental atelectasis at the right base. 2. Borderline vascular prominence. Correlate for impending congestive heart failure.
[2017-09-16 11:32] LABS: VBG PH 7.46 (7.31-7.41)
[2017-09-16 11:34] LABS: Anisocytosis Slight; Basophils # (A) 0.1 k/uL (0-0.2); Basophils % (A) 0 %; Eosinophils # (A) 0.4 k/uL (0-0.7); Eosinophils % (A) 3 %; HCT 28.4 % (34.0-46.0); HGB 8.2 gm/dL (11.4-16.0); Hypochromasia Marked; Lymphocytes # (A) 1.7 k/uL (1.0-4.8); Lymphocytes % (A) 13 %; MCH 21.7 pg (25.0-35.0); MCHC 28.9 g/dL (31.0-37.0); MCV 75.1 fL (80.0-100.0); Mean Platelet Volume 6.3; Microcytosis Slight; Monocytes % (A) 8 %; Neutrophils # (A) 9.9 k/uL (1.3-7.7); Neutrophils % (A) 74 %; Platelet Count 355 k/uL (150-450); Poikilocytosis Slight; RBC 3.78 m/uL (3.80-5.40); RDW 17.7 % (11.5-15.5); WBC 13.4 k/uL (3.8-10.6)
[2017-09-16 11:51] LABS: ALT 62 U/L (9-52); AST 60 U/L (14-36); Albumin 3.3 g/dL (3.5-5.0); Alkaline Phosphatase 64 U/L (38-126); Anion Gap 10 mmol/L; Blood Urea Nitrogen 14 mg/dL (7-17); Calcium 7.8 mg/dL (8.4-10.2); Carbon Dioxide 30 mmol/L (22-30); Chloride 99 mmol/L (98-107); Glucose 121 mg/dL (74-99); Magnesium 2.2 mg/dL (1.6-2.3); Potassium 4.2 mmol/L (3.5-5.1); Sodium 139 mmol/L (137-145); Total Bilirubin 0.2 mg/dL (0.2-1.3); Total Protein 5.8 g/dL (6.3-8.2)
--- NOTE | 2017-09-16 12:04 | US ---
EXAMINATION TYPE: US venous doppler duplex LE RT DATE OF EXAM: 09/16/2017 11:36 AM COMPARISON: NONE CLINICAL HISTORY: Pain. Patient did not respond to any questioning, no swelling SIDE PERFORMED: Right TECHNIQUE: The lower extremity deep venous system is examined utilizing real time linear array sonog maria del rosario with graded compression, doppler sonography and color-flow sonography. VESSELS IMAGED: External Iliac Vein (EIV) Common Femoral Vein Deep Femoral Vein Greater Saphenous Vein * Femoral Vein- duplicate vein seen Popliteal Vein Small Saphenous Vein * Proximal Calf Veins (* superficial vessels) Right Leg: Appears negative for DVT IMPRESSION: Right lower extremity ultrasound negative for deep venous thrombosis
[2017-09-16 12:11] LABS: Partial Thromboplastin Time 24.6 sec (22.0-30.0); Prothrombin Time 9.6 sec (9.0-12.0)
[2017-09-16 12:16] LABS: Troponin I 0.013 ng/mL (0.000-0.034)
[2017-09-16 12:27] LABS: Creatine Kinase MB 4.3 ng/mL (0.0-2.4)
[2017-09-16] MEDS ORDERED: FUROSEMIDE 10 MG/ML 2 ML VIAL IV ONE (12:33)
[2017-09-16] MEDS ORDERED: AZITHROMYCIN 500 MG TAB PO STA (13:56)
[2017-09-16] MEDS ORDERED: NITROGLYCERIN SL TABS 0.4 MG TAB SUBLINGUAL PRN (13:57)
[2017-09-16] MEDS ORDERED: ALBUTEROL NEBULIZED 2.5 MG/3 ML INHALATION PRN (13:57)
[2017-09-16] MEDS ORDERED: ZOLPIDEM 5 MG TAB PO PRN (13:57)
[2017-09-16] MEDS: IPRATROPIUM-ALBUTEROL 3 ML NEB INHALATION SCH ×2 (15:52→20:27)
[2017-09-16] MEDS: HYDROcodone/APAP 10-325MG 1 EACH TAB PO PRN (16:56)
[2017-09-16] MEDS: PRIMIDONE 50 MG TAB PO SCH ×2 (16:57→21:41)
[2017-09-16] MEDS: GABAPENTIN 400 MG CAP PO SCH ×2 (17:29→21:41)
[2017-09-16] MEDS ORDERED: LATANOPROST 0.005% OPHTH DROPS 2.5 ML BTL LEFT EYE SCH (21:00)
[2017-09-16] MEDS ORDERED: ATORVASTATIN 80 MG TAB PO SCH (21:00)
[2017-09-16] MEDS: TRIAMCINOLONE 0.1% CREAM 80 GM TUBE TOPICAL SCH (21:41)
[2017-09-16] MEDS: VARENICLINE 1 MG TAB PO SCH (21:42)
[2017-09-16] MEDS: PROPRANOLOL 40 MG TAB PO SCH (21:42)
[2017-09-16] MEDS: HEPARIN SODIUM,PORCINE 5,000 UNIT/ML 1 ML VIAL SQ SCH (21:42)
[2017-09-16] MEDS: LACOSAMIDE 50 MG TABLET PO SCH (21:42)
[2017-09-16] MEDS: ALPRAZolam 0.5 MG TAB PO PRN (22:52)
[2017-09-16] MEDS: IPRATROPIUM-ALBUTEROL 3 ML NEB INHALATION PRN (23:28)
[2017-09-17] MEDS: HYDROcodone/APAP 10-325MG 1 EACH TAB PO PRN ×2 (00:10→08:20)
[2017-09-17] MEDS: IPRATROPIUM-ALBUTEROL 3 ML NEB INHALATION PRN (02:53)
[2017-09-17] MEDS: IPRATROPIUM-ALBUTEROL 3 ML NEB INHALATION SCH ×2 (07:32→11:10)
[2017-09-17] MEDS: IPRATROPIUM 0.5 MG/2.5 ML NEBU INHALATION SCH ×2 (07:42→11:13)
[2017-09-17] MEDS: HEPARIN SODIUM,PORCINE 5,000 UNIT/ML 1 ML VIAL SQ SCH (08:07)
[2017-09-17] MEDS: VARENICLINE 1 MG TAB PO SCH (08:08)
[2017-09-17] MEDS: GABAPENTIN 400 MG CAP PO SCH (08:08)
[2017-09-17] MEDS: PRIMIDONE 50 MG TAB PO SCH (08:08)
[2017-09-17] MEDS: PROPRANOLOL 40 MG TAB PO SCH (08:08)
[2017-09-17] MEDS: TRIAMCINOLONE 0.1% CREAM 80 GM TUBE TOPICAL SCH (08:11)
[2017-09-17] MEDS: LACOSAMIDE 50 MG TABLET PO SCH (08:21)
[2017-09-17 08:39] VITALS: BP 132/69; RESP 16; TEMP 97.7
[2017-09-17] MEDS: ALPRAZolam 0.5 MG TAB PO PRN (08:57)
[2017-09-17] MEDS ORDERED: FAMOTIDINE 20 MG TAB PO SCH (09:00)
[2017-09-17] MEDS ORDERED: FLUDROCORTISONE 0.1 MG TAB PO SCH (09:00)
[2017-09-17] MEDS ORDERED: CLOPIDOGREL 75 MG TAB PO SCH (09:00)
[2017-09-17] MEDS ORDERED: OXYBUTYNIN XL 5 MG TAB.ER.24 PO SCH (09:00)
[2017-09-17] MEDS ORDERED: PARoxetine 20 MG TAB PO SCH (09:00)
[2017-09-17] MEDS ORDERED: predniSONE 20 MG TAB PO SCH (09:00)
[2017-09-17] MEDS ORDERED: buPROPion XL 150 MG TAB.ER.24H PO SCH (09:00)
[2017-09-17] MEDS ORDERED: METOPROLOL SUCCINATE (ER) 50 MG TAB.ER.24H PO SCH (09:00)
[2017-09-17] MEDS ORDERED: ASPIRIN 81 MG PO SCH (09:00)
[2017-09-17] MEDS ORDERED: SPIRONOLACTONE 25 MG TAB PO SCH (09:00)
[2017-09-17] MEDS ORDERED: AZITHROMYCIN 500 MG TAB PO SCH (09:00)
[2017-09-17] MEDS ORDERED: FUROSEMIDE 20 MG TAB PO SCH (09:00)
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
--- NOTE | 2017-09-17 12:04 | P.DS ---
Providers Date of admission: 09/16/17 13:55 Expected date of discharge: 09/17/17 Attending physician: Yovani Isebll Primary care physician: [facility] Course: Kasandra is a 61-year-old female with history of COPD and CAD presents with worsening dyspnea. She is on home oxygen, currently 2 L/min. She has had some URI symptoms including runny nose for the past several days along with e body spray several days ago and states her breathing has been worsening since that time. Denies fever or chills. Denies chest pain. She does have history of CAD status post CABG. She is also noted some right lower extremity swelling. No abdominal pain. No nausea vomiting. She denies productive cough. Patient was given albuterol, Atrovent, and 125 mg Solu-Medrol by EMS prior to arrival. She is a long-standing history of COPD. She is just recently quit smoking with Chantix. Emergency room did not find much to base her admission on, but she refused to go home. She was placed in observation. She was just here for admission August 31 and July 21-. Early she is very sleepy and somnolent. She said that she didn't go to sleep until 6 AM this morning. She unfortunately has end-stage COPD and is oxygen dependent. She has significant coronary disease. We'll have her follow-up in the office to discuss plans to avoid her repetitively getting admitted. Her smoking cessation though may certainly help. Acute exacerbation of chronic obstructive pulmonary disease most likely due to upper respiratory tract infection Acute on chronic hypoxic respiratory failure, requiring home oxygen, secondary to COPD, Chronic diastolic congestive heart failure, ejection fraction 50-55% Coronary artery disease with previous myocardial infarction History of CABG 4 with mitral and tricuspid valve surgery in November 2016 Pulmonary hypertension Gastroesophageal reflux disease Hyperlipidemia Generalized anxiety disorder Depression, unspecified Nicotine dependence, recent smoking cessation. Patient Condition at Discharge: Poor Plan - Discharge Summary Discharge Rx Participant: No New Discharge Prescriptions: New Azithromycin [Zithromax] 500 mg PO DAILY #3 tab predniSONE 10 mg PO DAILY #30 tab Continue Hydrocodone/Acetaminophen [Hydrocodone/Acetaminophen 10-325] 1 tab PO TID PRN PRN Reason: Pain Budesonide-Formot 160-4.5 Mcg [Symbicort 160-4.5 Mcg Inhaler] 2 puff INHALATION RT-BID #1 inhaler Atorvastatin [Lipitor] 80 mg PO HS #30 tab Nitroglycerin Sl Tabs [Nitrostat] 0.4 mg SUBLINGUAL Q5M PRN #25 tab PRN Reason: Chest Pain Aspirin 81 mg PO DAILY Clopidogrel [Plavix] 75 mg PO DAILY #30 tab Albuterol Nebulized [Ventolin Nebulized] 2.5 mg INHALATION RT-QID Metoprolol Succinate (ER) [Toprol XL] 50 mg PO DAILY PARoxetine HCL [Paxil] 60 mg PO DAILY Oxybutynin Xl [Ditropan XL] 5 mg PO DAILY Zolpidem [Ambien] 5 mg PO HS PRN PRN Reason: Insomnia Latanoprost [Xalatan 0.005%] 1 drop LEFT EYE HS Fludrocortisone [Florinef] 0.1 mg PO DAILY Propranolol [Inderal] 40 mg PO BID Primidone [Mysoline] 50 mg PO TID buPROPion HCL [Wellbutrin XL] 150 mg PO DAILY Cyanocobalamin (Vitamin B-12) [Vitamin B-12] 4,000 mcg PO DAILY Triamcinolone 0.1% Lotion [Kenalog 0.1% Lotion] 1 applic TOPICAL BID Lacosamide [Vimpat] 50 mg PO BID Tiotropium [place] [Spiriva] 1 cap INHALATION RT-DAILY Spironolactone [Aldactone] 25 mg PO DAILY Gabapentin [Neurontin] 400 mg PO TID Furosemide [Lasix] 20 mg PO DAILY Famotidine [Pepcid] 20 mg PO DAILY Varenicline [Chantix Continuing Pack] 1 mg PO BID ALPRAZolam [Xanax] 0.5 mg PO TID PRN PRN Reason: Anxiety Discharge Medication List Hydrocodone/Acetaminophen [Hydrocodone/Acetaminophen 10-325] 1 tab PO TID PRN [History] Budesonide-Formot 160-4.5 Mcg [Symbicort 160-4.5 Mcg Inhaler] 2 puff INHALATION RT-BID #1 inhaler 06/29/14 [Rx] Atorvastatin [Lipitor] 80 mg PO HS #30 tab 07/18/14 [Rx] Nitroglycerin Sl Tabs [Nitrostat] 0.4 mg SUBLINGUAL Q5M PRN #25 tab 07/18/14 [Rx ] Aspirin 81 mg PO DAILY 09/17/15 [History] Clopidogrel [Plavix] 75 mg PO DAILY #30 tab 08/06/16 [Rx] Albuterol Nebulized [Ventolin Nebulized] 2.5 mg INHALATION RT-QID 12/04/16 [ History] Metoprolol Succinate (ER) [Toprol XL] 50 mg PO DAILY 02/11/17 [History] PARoxetine HCL [Paxil] 60 mg PO DAILY 03/26/17 [History] Fludrocortisone [Florinef] 0.1 mg PO DAILY 08/29/17 [History] Latanoprost [Xalatan 0.005%] 1 drop LEFT EYE HS 08/29/17 [History] Oxybutynin Xl [Ditropan XL] 5 mg PO DAILY 08/29/17 [History] Primidone [Mysoline] 50 mg PO TID 08/29/17 [History] Propranolol [Inderal] 40 mg PO BID 08/29/17 [History] Zolpidem [Ambien] 5 mg PO HS PRN 08/29/17 [History] ALPRAZolam [Xanax] 0.5 mg PO TID PRN 09/16/17 [History] Cyanocobalamin (Vitamin B-12) [Vitamin B-12] 4,000 mcg PO DAILY 09/16/17 [ History] Famotidine [Pepcid] 20 mg PO DAILY 09/16/17 [History] Furosemide [Lasix] 20 mg PO DAILY 09/16/17 [History] Gabapentin [Neurontin] 400 mg PO TID 09/16/17 [History] Lacosamide [Vimpat] 50 mg PO BID 09/16/17 [History] Spironolactone [Aldactone] 25 mg PO DAILY 09/16/17 [History] Tiotropium [place] [Spiriva] 1 cap INHALATION RT-DAILY 09/16/17 [History] Triamcinolone 0.1% Lotion [Kenalog 0.1% Lotion] 1 applic TOPICAL BID 09/16/17 [ History] Varenicline [Chantix Continuing Pack] 1 mg PO BID 09/16/17 [History] buPROPion HCL [Wellbutrin XL] 150 mg PO DAILY 09/16/17 [History] Azithromycin [Zithromax] 500 mg PO DAILY #3 tab 09/17/17 [Rx] predniSONE 10 mg PO DAILY #30 tab 09/17/17 [Rx] Follow up Appointment(s)/Referral(s): Duarte Figueredo Jr, [Primary Care Provider] - 1-2 days Discharge Disposition: HOME SELF-CARE
[2017-09-17 13:09] VITALS: PULSE 72
== END 2017-09-17 13:50 | disposition home or self-care (01) ==
LOC: EC 10:35 → 5MS5E 13:55 → 3OBS 18:25
PROVIDERS: ADMIT Family Medicine; ATTEND Family Medicine
DX: J44.1 Chronic obstructive pulmonary disease with (acute) exacerbation (principal); I25.10 Atherosclerotic heart disease of native coronary artery without angina pectoris; Z99.81 Dependence on supplemental oxygen; Z95.1 Presence of aortocoronary bypass graft; Z87.891 Personal history of nicotine dependence; J06.9 Acute upper respiratory infection, unspecified; J96.21 Acute and chronic respiratory failure with hypoxia; I50.32 Chronic diastolic (congestive) heart failure; I27.29 Other secondary pulmonary hypertension; I25.2 Old myocardial infarction; K21.9 Gastro-esophageal reflux disease without esophagitis; E78.5 Hyperlipidemia, unspecified; F41.1 Generalized anxiety disorder; F32.9 Major depressive disorder, single episode, unspecified; I25.5 Ischemic cardiomyopathy; M81.0 Age-related osteoporosis without current pathological fracture; I73.9 Peripheral vascular disease, unspecified; H40.9 Unspecified glaucoma; G89.29 Other chronic pain; M25.532 Pain in left wrist; K90.0 Celiac disease; Z95.5 Presence of coronary angioplasty implant and graft; Z79.899 Other long term (current) drug therapy; Z79.82 Long term (current) use of aspirin; Z85.3 Personal history of malignant neoplasm of breast; Z88.1 Allergy status to other antibiotic agents; Z88.0 Allergy status to penicillin; Z92.3 Personal history of irradiation; Z83.3 Family history of diabetes mellitus; Z83.2 Family history of diseases of the blood and blood-forming organs and certain disorders involving the immune mechanism; Z79.02 Long term (current) use of antithrombotics/antiplatelets; Z79.51 Long term (current) use of inhaled steroids; Z95.828 Presence of other vascular implants and grafts
CPT/HCPCS: 36415; 71046; 80053; 82550; 82553; 82803; 83605; 83735; 84484; 85025; 85610; 85730; 87040; 87502; 93005; 94640; 94760; 96372; 96374; 99285

== ENCOUNTER 2017-09-19 09:43 | Inpatient (IN) | payer OTHER ==
[2017-09-19] MEDS ORDERED: methylPREDNISolone SOD SUCCI 125 MG/2 ML VIAL IV STA (10:01)
--- NOTE | 2017-09-19 10:04 | ED ---
General Adult HPI - General Chief complaint: Shortness of Breath Stated complaint: SOB Time Seen by Provider: 09/19/17 09:50 Source: patient, RN notes reviewed Mode of arrival: EMS Limitations: physical limitation - History of Present Illness Initial comments: This is a 61-year-old female who presents to the emergency department complaining of difficulty breathing 2 hours. Patient states it was sudden onset about 2 hours ago. Patient states she was just discharged from the hospital this past Tuesday for difficulty breathing. Patient states she has an extensive history of COPD. Patient states she is not having chest pain or palpitations. Patient denies any fever significant cough. Patient denies abdominal pain. Patient denies any nausea vomiting diarrhea. Patient denies headache patient denies numbness weakness. Patient denies any lightheadedness dizziness or near syncopal episode. - Related Data Home Medications Medication Instructions Recorded Confirmed Hydrocodone/Acetaminophen 1 tab PO TID PRN 06/24/14 09/19/17 [Hydrocodone/Acetaminophen 10-325] Aspirin 81 mg PO DAILY 09/17/15 09/19/17 Albuterol Nebulized [Ventolin 2.5 mg INHALATION RT-QID 12/04/16 09/19/17 Nebulized] Metoprolol Succinate (ER) [Toprol 50 mg PO DAILY 02/11/17 09/19/17 XL] PARoxetine HCL [Paxil] 60 mg PO DAILY 03/26/17 09/19/17 Fludrocortisone [Florinef] 0.1 mg PO DAILY 08/29/17 09/19/17 Latanoprost [Xalatan 0.005%] 1 drop LEFT EYE HS 08/29/17 09/19/17 Oxybutynin Xl [Ditropan XL] 5 mg PO DAILY 08/29/17 09/19/17 Primidone [Mysoline] 50 mg PO TID 08/29/17 09/19/17 Propranolol [Inderal] 40 mg PO BID 08/29/17 09/19/17 Zolpidem [Ambien] 5 mg PO HS PRN 08/29/17 09/19/17 ALPRAZolam [Xanax] 0.5 mg PO TID PRN 09/16/17 09/19/17 Cyanocobalamin (Vitamin B-12) 4,000 mcg PO DAILY 09/16/17 09/19/17 [Vitamin B-12] Famotidine [Pepcid] 20 mg PO DAILY 09/16/17 09/19/17 Lacosamide [Vimpat] 50 mg PO BID 09/16/17 09/19/17 Spironolactone [Aldactone] 12.5 mg PO DAILY 09/16/17 09/19/17 Tiotropium [place] [Spiriva] 1 cap INHALATION RT-DAILY 09/16/17 09/19/17 Triamcinolone 0.1% Lotion [Kenalog 1 applic TOPICAL BID 09/16/17 09/19/17 0.1% Lotion] Varenicline [Chantix Continuing 1 mg PO BID 09/16/17 09/19/17 Pack] buPROPion HCL [Wellbutrin XL] 150 mg PO DAILY 09/16/17 09/19/17 Furosemide [Lasix] 20 mg PO BID 09/19/17 09/19/17 Gabapentin [Neurontin] 300 mg PO TID 09/19/17 09/19/17 Vitamin E (Dl,Tocopheryl Acet) 400 unit PO DAILY 09/19/17 09/19/17 [Vitamin E] Previous Rx's Medication Instructions Recorded Atorvastatin [Lipitor] 80 mg PO HS #30 tab 07/18/14 Nitroglycerin Sl Tabs [Nitrostat] 0.4 mg SUBLINGUAL Q5M PRN #25 tab 07/18/14 Clopidogrel [Plavix] 75 mg PO DAILY #30 tab 08/06/16 Azithromycin [Zithromax] 500 mg PO DAILY #3 tab 09/17/17 predniSONE 10 mg PO DAILY #30 tab 09/17/17 Allergies Allergy/AdvReac Type Severity Reaction Status Date / Time latanoprost Allergy Swelling Verified 09/19/17 09:49 Quinolones Allergy Rash/Hives Verified 09/19/17 09:49 Review of Systems ROS Statement: Those systems with pertinent positive or pertinent negative responses have been documented in the HPI. ROS Other: All systems not noted in ROS Statement are negative. Past Medical History Past Medical History: Coronary Artery Disease (CAD), Cancer, Heart Failure, COPD , Eye Disorder, GERD/Reflux, Hyperlipidemia, Myocardial Infarction (PR), Respiratory Disorder, Vascular Disorder Additional Past Medical History / Comment(s): chronic hypoxic respiratory failure, CHF, pulmonary hypertension, ischemic cardiac myopathy, O2 2L/NC , celiac disease, R breast cancer lumpectomy and raditaion tx, osteoporosis, PAD , chronic pain L wrist (previous injury with sx), L eye glaucoma, sinus problems. Last Myocardial Infarction Date:: 2014 History of Any Multi-Drug Resistant Organisms: None Reported Past Surgical History: Breast Surgery, Section, Coronary Bypass/CABG, Heart Catheterization With Stent, Orthopedic Surgery Additional Past Surgical History / Comment(s): 11/2016 CABG 4 vessel with mitral/ tricuspid surgery at [facility]-also had thoracentesis, R breast lumpectomy, L WRIST SX X3, D&C, 11-01-14 AORTAGRAM W/RUNOFF- CECILIO ILIAC STENTS, rthectomy/balloon angioplasty lt sfa. colonoscopy. Past Anesthesia/Blood Transfusion Reactions: No Reported Reaction Additional Past Anesthesia/Blood Transfusion Reaction / Comment(s): no hx blood transfusion Date of Last Stent Placement:: 2014 Past Psychological History: Anxiety, Depression Smoking Status: Former smoker - Past Family History Mother Family Medical History: Congestive Heart Failure (CHF), Diabetes Mellitus Additional Family Medical History / Comment(s): HEART ISSSUES. Mother of CHF at the age of 69yrs. Father Family Medical History: Blood Disorder Additional Family Medical History / Comment(s): HEMACHROMATOSIS. Father at the age of 69yrs from cirrhosis. He was not a drinker. General Exam - General Exam Comments Initial Comments: GENERAL: Patient is well-developed and well-nourished. Patient is nontoxic and well- hydrated and is in mild distress. ENT: Neck is soft and supple. No significant lymphadenopathy is noted. Oropharynx is clear. Moist mucous membranes. Neck has full range of motion without eliciting any pain. EYES: The sclera were anicteric and conjunctiva were pink and moist. Extraocular movements were intact and pupils were equal round and reactive to light. Eyelids were unremarkable. PULMONARY: Unlabored respirations. Good breath sounds bilaterally. No audible rales rhonchi or wheezing was noted. CARDIOVASCULAR: There is a regular rate and rhythm without any murmurs gallops or rubs. ABDOMEN: Soft and nontender with normal bowel sounds. No palpable organomegaly was noted. There is no palpable pulsatile mass. SKIN: Skin is clear with no lesions or rashes and otherwise unremarkable. NEUROLOGIC: Patient is alert and oriented x3. Cranial nerves II through XII are grossly intact. Motor and sensory are also intact. Normal speech, volume and content. Symmetrical smile. MUSCULOSKELETAL: Normal extremities with adequate strength and full range of motion. No lower extremity swelling or edema. No calf tenderness. LYMPHATICS: No significant lymphadenopathy is noted PSYCHIATRIC: Normal psychiatric evaluation. Normal interpersonal interactions appears functionally intact in deals appropriately with others. No signs of depression. No signs of anxiety. Limitations: physical limitation Course Vital Signs 09/19/17 09/19/17 09/19/17 09:49 10:33 11:51 Temperature 97.8 F Pulse Rate 96 85 97 Respiratory 28 H 20 22 Rate Blood Pressure 157/93 147/89 174/93 O2 Sat by Pulse 100 94 L 85 L Oximetry 09/19/17 09/19/17 11:54 12:36 Temperature Pulse Rate 89 Respiratory 18 Rate Blood Pressure 161/77 O2 Sat by Pulse 95 97 Oximetry Medical Decision Making - Medical Decision Making EKG shows normal sinus rhythm at 94 bpm [place] interval is 132 QRS is 84 QT interval 364 QTC is 455. Patient's EKG shows no acute abnormality when compared to an old EKG. Patient's EKG shows no ST segment elevation or depression Patient's chest x-ray shows no acute abnormality. Patient received a breathing treatments steroids in the emergency department was doing considerably better but when moved around her oxygenation went down to 85-86% I spoke with Dr. Figueredo he agreed to admit the patient I wrote admitting orders continued breathing treatments as well as steroids on the floor. I also consult to pulmonary. - Lab Data Result diagrams: 09/19/17 10:03 09/19/17 10:03 Lab Results 09/19/17 09/19/17 09/19/17 Range/Units 10:03 10:03 10:03 WBC 12.4 H (3.8-10.6) k/uL RBC 4.14 (3.80-5.40) m/uL Hgb 9.2 L (11.4-16.0) gm/dL Hct 30.9 L (34.0-46.0) % MCV 74.5 L (80.0-100.0) fL MCH 22.2 L (25.0-35.0) pg MCHC 29.8 L (31.0-37.0) g/dL RDW 18.0 H (11.5-15.5) % Plt Count 409 (150-450) k/uL Neutrophils % 63 % Lymphocytes % 24 % Monocytes % 8 % Eosinophils % 4 % Basophils % 0 % Neutrophils # 7.8 H (1.3-7.7) k/uL Lymphocytes # 3.0 (1.0-4.8) k/uL Monocytes # 0.9 (0-1.0) k/uL Eosinophils # 0.4 (0-0.7) k/uL Basophils # 0.0 (0-0.2) k/uL Hypochromasia Marked Poikilocytosis Slight Anisocytosis Slight Microcytosis Moderate PT (9.0-12.0) sec INR (<1.2) APTT (22.0-30.0) sec Sodium 137 (137-145) mmol/L Potassium 4.3 (3.5-5.1) mmol/L Chloride 99 (98-107) mmol/L Carbon Dioxide 27 (22-30) mmol/L Anion Gap 11 mmol/L BUN 27 H (7-17) mg/dL Creatinine 0.59 (0.52-1.04) mg/dL Est GFR (CKD-EPI)AfAm >90 (>60 ml/min/1.73 sqM) Est GFR (CKD-EPI)NonAf >90 (>60 ml/min/1.73 sqM) Glucose 175 H (74-99) mg/dL Calcium 8.6 (8.4-10.2) mg/dL Total Bilirubin 0.2 (0.2-1.3) mg/dL AST 48 H (14-36) U/L ALT 55 H (9-52) U/L Alkaline Phosphatase 58 (38-126) U/L Total Creatine Kinase 95 (30-135) U/L CK-MB (CK-2) 4.4 H* (0.0-2.4) ng/mL CK-MB (CK-2) Rel Index 4.6 Troponin I 0.055 H* (0.000-0.034) ng/mL Total Protein 5.9 L (6.3-8.2) g/dL Albumin 3.4 L (3.5-5.0) g/dL 09/19/17 Range/Units 10:03 WBC (3.8-10.6) k/uL RBC (3.80-5.40) m/uL Hgb (11.4-16.0) gm/dL Hct (34.0-46.0) % MCV (80.0-100.0) fL MCH (25.0-35.0) pg MCHC (31.0-37.0) g/dL RDW (11.5-15.5) % Plt Count (150-450) k/uL Neutrophils % % Lymphocytes % % Monocytes % % Eosinophils % % Basophils % % Neutrophils # (1.3-7.7) k/uL Lymphocytes # (1.0-4.8) k/uL Monocytes # (0-1.0) k/uL Eosinophils # (0-0.7) k/uL Basophils # (0-0.2) k/uL Hypochromasia Poikilocytosis Anisocytosis Microcytosis PT 10.0 (9.0-12.0) sec INR 1.0 (<1.2) APTT 22.0 (22.0-30.0) sec Sodium (137-145) mmol/L Potassium (3.5-5.1) mmol/L Chloride (98-107) mmol/L Carbon Dioxide (22-30) mmol/L Anion Gap mmol/L BUN (7-17) mg/dL Creatinine (0.52-1.04) mg/dL Est GFR (CKD-EPI)AfAm (>60 ml/min/1.73 sqM) Est GFR (CKD-EPI)NonAf (>60 ml/min/1.73 sqM) Glucose (74-99) mg/dL Calcium (8.4-10.2) mg/dL Total Bilirubin (0.2-1.3) mg/dL AST (14-36) U/L ALT (9-52) U/L Alkaline Phosphatase (38-126) U/L Total Creatine Kinase (30-135) U/L CK-MB (CK-2) (0.0-2.4) ng/mL CK-MB (CK-2) Rel Index Troponin I (0.000-0.034) ng/mL Total Protein (6.3-8.2) g/dL Albumin (3.5-5.0) g/dL Critical Care Time Critical Care Time: Yes Total Critical Care Time: 35 Disposition Clinical Impression: COPD exacerbation Disposition: ADMITTED IP TO THIS HOSP Referrals: Duarte Figueredo Jr, [Primary Care Provider] - 1-2 days Time of Disposition: 12:38
[2017-09-19 10:22] LABS: Anisocytosis Slight; Basophils % (A) 0 %; Eosinophils # (A) 0.4 k/uL (0-0.7); Eosinophils % (A) 4 %; HCT 30.9 % (34.0-46.0); HGB 9.2 gm/dL (11.4-16.0); Hypochromasia Marked; Lymphocytes % (A) 24 %; MCH 22.2 pg (25.0-35.0); MCHC 29.8 g/dL (31.0-37.0); MCV 74.5 fL (80.0-100.0); Mean Platelet Volume 6.5; Microcytosis Moderate; Monocytes # (A) 0.9 k/uL (0-1.0); Monocytes % (A) 8 %; Neutrophils # (A) 7.8 k/uL (1.3-7.7); Neutrophils % (A) 63 %; Platelet Count 409 k/uL (150-450); Poikilocytosis Slight; RBC 4.14 m/uL (3.80-5.40); WBC 12.4 k/uL (3.8-10.6)
[2017-09-19 10:26] LABS: ALT 55 U/L (9-52); AST 48 U/L (14-36); Albumin 3.4 g/dL (3.5-5.0); Alkaline Phosphatase 58 U/L (38-126); Anion Gap 11 mmol/L; Blood Urea Nitrogen 27 mg/dL (7-17); Calcium 8.6 mg/dL (8.4-10.2); Carbon Dioxide 27 mmol/L (22-30); Chloride 99 mmol/L (98-107); Glucose 175 mg/dL (74-99); Potassium 4.3 mmol/L (3.5-5.1); Sodium 137 mmol/L (137-145); Total Bilirubin 0.2 mg/dL (0.2-1.3); Total Protein 5.9 g/dL (6.3-8.2)
--- NOTE | 2017-09-19 10:28 | XR ---
EXAMINATION TYPE: XR chest 2V DATE OF EXAM: 09/19/2017 COMPARISON: 09/16/2017 HISTORY: Shortness of breath TECHNIQUE: Frontal and lateral views of the chest are obtained. FINDINGS: Scattered senescent parenchymal changes noted. Hyperinflation compatible with COPD. No evidence for infiltrate. No evidence for atelectasis. Heart size is stable. Mediastinal structures are stable and grossly unremarkable. No evidence for hilar prominence. Degenerative changes dorsal spine. IMPRESSION: 1. No evidence for acute pulmonary disease.
[2017-09-19 11:56] LABS: Creatine Kinase MB 4.4 ng/mL (0.0-2.4); Troponin I 0.055 ng/mL (0.000-0.034)
[2017-09-19] MEDS: IPRATROPIUM-ALBUTEROL 3 ML NEB INHALATION PRN ×2 (13:01→23:24)
[2017-09-19] MEDS ORDERED: ZOLPIDEM 5 MG TAB PO PRN (14:44)
[2017-09-19] MEDS ORDERED: NITROGLYCERIN SL TABS 0.4 MG TAB SUBLINGUAL PRN (14:44)
[2017-09-19] MEDS: HYDROcodone/APAP 10-325MG 1 EACH TAB PO PRN ×2 (15:05→20:44)
[2017-09-19] MEDS: IPRATROPIUM-ALBUTEROL 3 ML NEB INHALATION SCH ×2 (15:23→18:56)
[2017-09-19] MEDS: buPROPion XL 150 MG TAB.ER.24H PO SCH (15:52)
[2017-09-19] MEDS: ASPIRIN 81 MG PO SCH (15:52)
[2017-09-19] MEDS: FLUDROCORTISONE 0.1 MG TAB PO SCH ×2 (15:53→16:00)
[2017-09-19] MEDS: PARoxetine 20 MG TAB PO SCH (15:53)
[2017-09-19] MEDS: CLOPIDOGREL 75 MG TAB PO SCH (15:53)
[2017-09-19] MEDS: FAMOTIDINE 20 MG TAB PO SCH (15:53)
[2017-09-19] MEDS: SPIRONOLACTONE 25 MG TAB PO SCH (15:53)
[2017-09-19] MEDS: OXYBUTYNIN XL 5 MG TAB.ER.24 PO SCH (15:53)
[2017-09-19] MEDS: GABAPENTIN 300 MG CAP PO SCH ×2 (15:54→21:02)
[2017-09-19] MEDS: PRIMIDONE 50 MG TAB PO SCH ×2 (15:54→21:02)
[2017-09-19] MEDS: FUROSEMIDE 20 MG TAB PO SCH (15:55)
--- NOTE | 2017-09-19 16:40 | P.CNPUL ---
History of Present Illness Consult date: 09/19/17 Requesting physician: Duarte Figueredo Jr Reason for consult: dyspnea, COPD, hypoxemia Chief complaint: Severe shortness of breath, COPD exacerbation History of present illness: This is a 61-year-old white female who follows with Dr. Figueredo for primary care services, and Dr. Cardoso for her history of severe end-stage COPD with an FEV1 of 34% of predicted, who was just discharged on 09/17/2017 after being hospitalized for a COPD exacerbation. This morning she woke up very dyspneic, and her shortness of breath became progressively worse, she started calling her for help, but her did not hear her. Patient's granddaughter responded and found the patient in severe respiratory distress, panting and using accessory muscles of breathing. The granddaughter called 911 for assistance , en route patient was given 4 breathing treatments, and she was able to bring up some thick yellow sputum. She denied any fever or chills. She was currently on her prednisone taper, and she was supposed to take her last dose of Zithromax today. Denied any chest pain, denied any nausea vomiting. Chest x-ray completed in the emergency room showed hyperinflation compatible with COPD, no evidence for infiltrate, no evidence for atelectasis, no evidence for acute pulmonary process. EKG showed normal sinus rhythm with a rate of 94 BPM. Patient was hypoxemic on 2 L per nasal cannula her O2 sat was only 85%, she was in severe respiratory distress, using accessory muscles of breathing. Oxygen flow was increased to 4 L per nasal cannula, patient was started on IV Solu-Medrol, nebulized treatments, and admitted for further management. At the time of my evaluation the patient is resting in bed, mildly short of breath with conversation, but in no respiratory distress. Lung sounds are extremely diminished bilaterally. In addition patient has been having ongoing problems with insomnia, frequent nighttime awakening, and drowsiness during the day. Patient has recently quit smoking, 6 weeks ago, with the help of Chantix, however she is having issues with prior authorization to receive the second package of Chantix. Her maintenance inhalers and nebulizers include Symbicort, Spiriva, and albuterol nebulized treatments 4-5 times a day. Her other medical history includes coronary artery disease, status post coronary artery bypass grafting, mitral/tricuspid valve surgery in November 2016, pulmonary hypertension, GERD, hyperlipidemia, generalized anxiety disorder, depression, diastolic congestive heart failure, with ejection fraction of 50-55%, previous myocardial infarction, malignant tumor of right breast with previous lumpectomy followed by radiation therapy, peripheral vascular disease, and stents in bilateral lower extremities. Review of Systems All systems: negative Constitutional: Reports daytime sleepiness, Reports lethargy, Denies chills, Denies fever Eyes: denies blurred vision, denies pain Ears, nose, mouth and throat: Denies headache, Denies sore throat Cardiovascular: Reports decreased exercise tolerance, Reports dyspnea on exertion, Denies chest pain, Denies shortness of breath Respiratory: Reports dyspnea, Reports home oxygen, Denies cough Gastrointestinal: Reports diarrhea, Denies abdominal pain, Denies nausea, Denies vomiting Genitourinary: Denies dysuria, Denies hematuria Musculoskeletal: Denies myalgias Integumentary: Denies pruritus, Denies rash Neurological: Denies numbness, Denies weakness Psychiatric: Denies anxiety, Denies depression Endocrine: Denies fatigue, Denies weight change Past Medical History Past Medical History: Coronary Artery Disease (CAD), Cancer, Heart Failure, COPD , Eye Disorder, GERD/Reflux, Hyperlipidemia, Myocardial Infarction ([place]), Pneumonia, Respiratory Disorder, Vascular Disorder Additional Past Medical History / Comment(s): chronic hypoxic respiratory failure, O2 at 2L/NC, pulmonary hypertension, ischemic cardiac myopathy, celiac disease, R breast cancer lumpectomy and raditaion tx, osteoporosis, PAD, chronic pain L wrist (previous injury with sx), L eye glaucoma, sinus problems. Last Myocardial Infarction Date:: 2014 History of Any Multi-Drug Resistant Organisms: None Reported Past Surgical History: Breast Surgery, Section, Coronary Bypass/CABG, Heart Catheterization With Stent, Orthopedic Surgery Additional Past Surgical History / Comment(s): 11/2016 CABG 4 vessel with mitral/ tricuspid surgery at [facility]-also had thoracentesis, R breast lumpectomy, L WRIST SX X3, D&C, 11-01-14 AORTAGRAM W/RUNOFF- CECILIO ILIAC STENTS, rthectomy/balloon angioplasty lt sfa. colonoscopy. Past Anesthesia/Blood Transfusion Reactions: No Reported Reaction Additional Past Anesthesia/Blood Transfusion Reaction / Comment(s): no hx blood transfusion Date of Last Stent Placement:: 2014 Smoking Status: Former smoker - Past Family History Mother Family Medical History: Congestive Heart Failure (CHF), Diabetes Mellitus Additional Family Medical History / Comment(s): HEART ISSSUES. Mother of CHF at the age of 69yrs. Father Family Medical History: Blood Disorder Additional Family Medical History / Comment(s): HEMACHROMATOSIS. Father at the age of 69yrs from cirrhosis. He was not a drinker. Medications and Allergies Home Medications Medication Instructions Recorded Confirmed Type Hydrocodone/Acetaminophen 1 tab PO TID PRN 06/24/14 09/19/17 History [Hydrocodone/Acetaminophen 10-325] Atorvastatin [Lipitor] 80 mg PO HS #30 tab 07/18/14 09/19/17 Rx Nitroglycerin Sl Tabs [Nitrostat] 0.4 mg SUBLINGUAL Q5M PRN #25 tab 07/18/1402/28 Rx Aspirin 81 mg PO DAILY 09/17/15 09/19/17 History Clopidogrel [Plavix] 75 mg PO DAILY #30 tab 08/06/16 09/19/17 Rx Albuterol Nebulized [Ventolin 2.5 mg INHALATION RT-QID 12/04/16 09/19/17 History Nebulized] Metoprolol Succinate (ER) [Toprol 50 mg PO DAILY 02/11/17 09/19/17 History XL] PARoxetine HCL [Paxil] 60 mg PO DAILY 03/26/17 09/19/17 History Fludrocortisone [Florinef] 0.1 mg PO DAILY 08/29/17 09/19/17 History Latanoprost [Xalatan 0.005%] 1 drop LEFT EYE HS 08/29/17 09/19/17 History Oxybutynin Xl [Ditropan XL] 5 mg PO DAILY 08/29/17 09/19/17 History Primidone [Mysoline] 50 mg PO TID 08/29/17 09/19/17 History Propranolol [Inderal] 40 mg PO BID 08/29/17 09/19/17 History Zolpidem [Ambien] 5 mg PO HS PRN 08/29/17 09/19/17 History ALPRAZolam [Xanax] 0.5 mg PO TID PRN 09/16/17 09/19/17 History Cyanocobalamin (Vitamin B-12) 4,000 mcg PO DAILY 09/16/17 09/19/17 History [Vitamin B-12] Famotidine [Pepcid] 20 mg PO DAILY 09/16/17 09/19/17 History Lacosamide [Vimpat] 50 mg PO BID 09/16/17 09/19/17 History Spironolactone [Aldactone] 12.5 mg PO DAILY 09/16/17 09/19/17 History Tiotropium [place] [Spiriva] 1 cap INHALATION RT-DAILY 09/16/17 09/19/17 History Triamcinolone 0.1% Lotion [Kenalog 1 applic TOPICAL BID 09/16/17 09/19/17 History 0.1% Lotion] Varenicline [Chantix Continuing 1 mg PO BID 09/16/17 09/19/17 History Pack] buPROPion HCL [Wellbutrin XL] 150 mg PO DAILY 09/16/17 09/19/17 History Azithromycin [Zithromax] 500 mg PO DAILY #3 tab 09/17/17 09/19/17 Rx predniSONE 10 mg PO DAILY #30 tab 09/17/17 09/19/17 Rx Furosemide [Lasix] 20 mg PO BID 09/19/17 09/19/17 History Gabapentin [Neurontin] 300 mg PO TID 09/19/17 09/19/17 History Vitamin E (Dl,Tocopheryl Acet) 400 unit PO DAILY 09/19/17 09/19/17 History [Vitamin E] Allergies Allergy/AdvReac Type Severity Reaction Status Date / Time latanoprost Allergy Swelling Verified 09/19/17 09:49 Quinolones Allergy Rash/Hives Verified 09/19/17 09:49 Physical Exam Vitals: Vital Signs Temp Pulse Pulse Resp BP BP Pulse Ox 09/19/17 15:33 92 09/19/17 15:26 96 09/19/17 15:12 97.8 F 100 19 152/97 95 09/19/17 13:39 98.4 F 93 20 146/80 96 09/19/17 13:10 92 09/19/17 13:01 90 09/19/17 12:36 89 18 161/77 97 09/19/17 11:54 95 09/19/17 11:51 97 22 174/93 85 L 09/19/17 10:33 85 20 147/89 94 L 09/19/17 09:49 97.8 F 96 28 H 157/93 100 Intake and Output 09/19/17 09/19/17 09/19/17 06:59 14:59 22:59 Other: Weight 50.802 kg GENERAL EXAM: Alert, pleasant, thin 61-year-old white female, mildly short of breath with conversation, but comfortable in no apparent distress. HEAD: Normocephalic/atraumatic. EYES: Normal reaction of pupils, equal size. Conjunctiva pink, sclera white. NOSE: Clear with pink turbinates. THROAT: No erythema or exudates. NECK: No masses, no JVD, no thyroid enlargement, no adenopathy. CHEST: No chest wall deformity. Symmetrical expansion. LUNGS: Diminished air entry bilaterally, no rhonchi, no wheezes. There is prolongation on forced maneuver CVS: Regular rate and rhythm, normal S1 and S2, no gallops, no murmurs, no rubs ABDOMEN: Soft, nontender. No hepatosplenomegaly, normal bowel sounds, no guarding or rigidity. EXTREMITIES: No clubbing, no edema, no cyanosis, 2+ pulses and upper and lower extremities. MUSCULOSKELETAL: Muscle strength and tone normal. SPINE: No scoliosis or deformity SKIN: No rashes CENTRAL NERVOUS SYSTEM: Alert and oriented -3. No focal deficits, tone is normal in all 4 extremities. PSYCHIATRIC: Alert and oriented -3. Appropriate affect. Intact judgment and insight. Results - Laboratory Findings CBC and BMP: 09/19/17 10:03 09/19/17 10:03 PT/INR, D-dimer PT 10.0 sec (9.0-12.0) 09/19/17 10:03 INR 1.0 (<1.2) 09/19/17 10:03 Abnormal lab findings: Abnormal Labs 09/19/17 09/19/17 09/19/17 10:03 10:03 10:03 WBC 12.4 H Hgb 9.2 L Hct 30.9 L MCV 74.5 L MCH 22.2 L MCHC 29.8 L RDW 18.0 H Neutrophils # 7.8 H BUN 27 H Glucose 175 H AST 48 H ALT 55 H CK-MB (CK-2) 4.4 H* Troponin I 0.055 H* Total Protein 5.9 L Albumin 3.4 L - Diagnostic Findings Chest x-ray: report reviewed Additional studies: Twelve-lead EKG reviewed Assessment and Plan Plan: Assessment: #1. Acute on chronic hypoxic respiratory failure secondary to an acute COPD exacerbation. Chest x-ray did not show any evidence of pneumonia, or any other pulmonary process #2. Recent hospitalization for acute COPD exacerbation, patient was discharged home on 09/17/2017 on a course of steroid taper, outpatient course of Zithromax , and patient's maintenance inhalers and nebulizer treatments. #3. Severe end-stage COPD, oxygen dependent, with baseline FEV1 of 34% of predicted #4. Coronary artery disease, status post coronary artery bypass grafting #5. History of mitral and tricuspid valve repair in November 2016 #6. History of myocardial infarction #7. Hypertension, hyperlipidemia #8. Chronic diastolic congestive heart failure, with ejection fraction between 50-55% #9. Mild pulmonary hypertension, with right ventricular systolic pressure 45 mmHg #10. Microcytic hypochromic anemia #11. Mild elevation of troponin, without acute ischemic changes on EKG, possibly related to acute hypoxemic respiratory failure #12. History of right breast cancer, with lumpectomy followed by radiation #13. GERD/reflux #14. History of osteoporosis #15. History of nicotine dependence, currently in remission Plan: Continue with IV Solu-Medrol 60 mg every 6 hours, continue DuoNeb nebulized treatments around the clock and as needed. We will add Pulmicort and Perforomist nebulized treatments. Patient has completed a course of Zithromax. No significant leukocytosis, no fever or chills. No significant sputum production or chest congestion. Chest x-ray did not show any evidence of pneumonia or any other acute pulmonary process. We'll continue to follow I performed a history & physical examination of the patient and discussed their management with my nurse practitioner, Lia Armando. I reviewed the nurse practitioner's note and agree with the documented findings and plan of care. Lung sounds are positive for decreased air entry bilaterally. The findings and the impression was discussed with the patient. I attest to the documentation by the nurse practitioner. Time with Patient: Greater than 30
[2017-09-19 17:10] LABS: Glucose,Whole Blood 159 mg/dL (75-99)
[2017-09-19] MEDS: methylPREDNISolone SOD SUCCI 125 MG/2 ML VIAL IV SCH ×2 (17:25→22:55)
[2017-09-19] MEDS: INSULIN ASPART 100 UNIT/ML 1 ML 10 ML VIAL SQ SCH ×2 (17:26→21:04)
[2017-09-19] MEDS: BUDESONIDE 1 MG/2 ML NEBU INHALATION SCH (18:56)
[2017-09-19] MEDS: FORMOTEROL FUMARATE 20 MCG/2 ML NEBU INHALATION SCH (18:56)
[2017-09-19] MEDS: ALPRAZolam 0.5 MG TAB PO PRN (20:44)
[2017-09-19] MEDS: ATORVASTATIN 80 MG TAB PO SCH (20:45)
[2017-09-19] MEDS: HEPARIN SODIUM,PORCINE 5,000 UNIT/ML 1 ML VIAL SQ SCH ×2 (20:45→20:59)
[2017-09-19] MEDS: TRIAMCINOLONE 0.1% CREAM 80 GM TUBE TOPICAL SCH (20:49)
[2017-09-19] MEDS: LACOSAMIDE 50 MG TABLET PO SCH (20:54)
[2017-09-19 20:56] LABS: Glucose,Whole Blood 188 mg/dL (75-99)
[2017-09-19] MEDS: PROPRANOLOL 40 MG TAB PO SCH (21:01)
[2017-09-19] MEDS: LATANOPROST 0.005% OPHTH DROPS 2.5 ML BTL LEFT EYE SCH (21:02)
[2017-09-19] MEDS: VARENICLINE 1 MG TAB PO SCH (21:02)
[2017-09-19] MEDS: TEMAZEPAM 15 MG CAP PO PRN (23:13)
[2017-09-20] MEDS: HYDROcodone/APAP 10-325MG 1 EACH TAB PO PRN ×3 (03:31→20:47)
[2017-09-20 05:58] LABS: Glucose,Whole Blood 177 mg/dL (75-99)
[2017-09-20] MEDS: FUROSEMIDE 20 MG TAB PO SCH ×2 (06:18→17:09)
[2017-09-20] MEDS: methylPREDNISolone SOD SUCCI 125 MG/2 ML VIAL IV SCH ×4 (06:18→23:21)
[2017-09-20] MEDS: INSULIN ASPART 100 UNIT/ML 1 ML 10 ML VIAL SQ SCH ×4 (06:27→20:58)
[2017-09-20] MEDS: FORMOTEROL FUMARATE 20 MCG/2 ML NEBU INHALATION SCH ×2 (07:59→19:52)
[2017-09-20] MEDS: BUDESONIDE 1 MG/2 ML NEBU INHALATION SCH ×2 (07:59→19:52)
[2017-09-20] MEDS: IPRATROPIUM-ALBUTEROL 3 ML NEB INHALATION SCH ×4 (08:00→19:52)
[2017-09-20] MEDS: FLUDROCORTISONE 0.1 MG TAB PO SCH (09:01)
[2017-09-20] MEDS: PRIMIDONE 50 MG TAB PO SCH ×3 (09:01→20:41)
[2017-09-20] MEDS: VARENICLINE 1 MG TAB PO SCH ×2 (09:01→20:38)
[2017-09-20] MEDS: TRIAMCINOLONE 0.1% CREAM 80 GM TUBE TOPICAL SCH ×2 (09:01→20:48)
[2017-09-20] MEDS: FAMOTIDINE 20 MG TAB PO SCH (09:01)
[2017-09-20] MEDS: ASPIRIN 81 MG PO SCH (09:01)
[2017-09-20] MEDS: PROPRANOLOL 40 MG TAB PO SCH ×2 (09:01→20:39)
[2017-09-20] MEDS: buPROPion XL 150 MG TAB.ER.24H PO SCH (09:01)
[2017-09-20] MEDS: GABAPENTIN 300 MG CAP PO SCH ×3 (09:01→20:40)
[2017-09-20] MEDS: OXYBUTYNIN XL 5 MG TAB.ER.24 PO SCH (09:01)
[2017-09-20] MEDS: METOPROLOL SUCCINATE (ER) 50 MG TAB.ER.24H PO SCH (09:01)
[2017-09-20] MEDS: CLOPIDOGREL 75 MG TAB PO SCH (09:01)
[2017-09-20] MEDS: SPIRONOLACTONE 25 MG TAB PO SCH (09:01)
[2017-09-20] MEDS: PARoxetine 20 MG TAB PO SCH (09:01)
[2017-09-20] MEDS: HEPARIN SODIUM,PORCINE 5,000 UNIT/ML 1 ML VIAL SQ SCH ×2 (09:02→20:38)
[2017-09-20] MEDS: LACOSAMIDE 50 MG TABLET PO SCH ×2 (09:08→20:47)
[2017-09-20 11:40] LABS: Glucose,Whole Blood 178 mg/dL (75-99)
--- NOTE | 2017-09-20 12:05 | P.HPIM ---
History of Present Illness H&P Date: 09/20/17 Chief Complaint: Shortness of breath 61-year-old female who presented to the emergency room with a chief complaint of shortness of breath. The patient was discharged from [facility] on 09/17/2017 for COPD exacerbation and was prescribed zithromax and a prednisone taper which she states she has been taking. The patient states she was doing well until yesterday when she suddenly became short of breath. The patients granddaughter called 911. She received neubulizer treatments en route to the hospital. She denies chest pain or pressure. Denies nausea or vomiting. Denies dizziness or lightheadedness. The patient has a history of coronary artery disease, congestive heart failure, chronic obstructive pulmonary disease, gastroesophageal reflux disease, hyperlipidemia, myocardial infarction, and anxiety. The patient underwent a CABG 4 vessel with mitral valve and tricuspid valve surgery in November 2016. She denies alcohol use. She states she quit smoking 6 weeks ago and has been using Chantix. Chest x-ray: Negative for an acute pulmonary process. findings compatible with COPD. Laboratory data: WBC 12.4. Hemoglobin 9.2. Platelet count 409. Sodium 137. Potassium 4.3. BUN 27. Creatinine 0.59. AST 48. ALT 55. Troponin: 0.055, 0.066, 0.053 The patient was admitted to the hospital under the care of Dr. Figueredo. Consultations were placed to pulmonary. Review of Systems GENERAL: Patient denies fever. Denies chills. EYES: Denies blurred vision. Denies vision changes. Denies eye pain. EARS, NOSE, MOUTH, & THROAT: Denies headache. Denies sore throat. Denies ear pain. RESPIRATORY: Positive for shortness of breath. Denies cough. Denies hemoptysis. CARDIOVASCULAR: Denies chest pain or pressure. Denies palpitations. Denies arrhythmias. GASTROINTESTINAL: Denies abdominal pain. Denies diarrhea. Denies constipation. Denies nausea. Denies vomiting. Denies heartburn. Denies blood in the stool. GENITOURINARY: Denies urinary frequency. Denies burning. Denies dysuria. Denies cloudy urine. Denies blood in the urine. MUSCULOSKELETAL: Denies myalgias. Denies joint swelling. Denies decreased range of motion beyond patients baseline. INTEGUMENTARY: Denies pruitis. Denies rash. PSYCHIATRIC: Denies suicidal or homicial ideations. ENDOCRINE: Denies weight change. Denies polydipsia. Denies polyuria. HEMATOLOGIC: Denies bleeding disorders. Past Medical History Past Medical History: Coronary Artery Disease (CAD), Cancer, Heart Failure, COPD , Eye Disorder, GERD/Reflux, Hyperlipidemia, Myocardial Infarction ([place]), Pneumonia, Respiratory Disorder, Vascular Disorder Additional Past Medical History / Comment(s): chronic hypoxic respiratory failure, O2 at 2L/NC, pulmonary hypertension, ischemic cardiac myopathy, celiac disease, R breast cancer lumpectomy and raditaion tx, osteoporosis, PAD, chronic pain L wrist (previous injury with sx), L eye glaucoma, sinus problems. Last Myocardial Infarction Date:: 2014 History of Any Multi-Drug Resistant Organisms: None Reported Past Surgical History: Breast Surgery, Section, Coronary Bypass/CABG, Heart Catheterization With Stent, Orthopedic Surgery Additional Past Surgical History / Comment(s): 11/2016 CABG 4 vessel with mitral/ tricuspid surgery at [facility]-also had thoracentesis, R breast lumpectomy, L WRIST SX X3, D&C, 11-01-14 AORTAGRAM W/RUNOFF- CECILIO ILIAC STENTS, rthectomy/balloon angioplasty lt sfa. colonoscopy. Past Anesthesia/Blood Transfusion Reactions: No Reported Reaction Additional Past Anesthesia/Blood Transfusion Reaction / Comment(s): no hx blood transfusion Date of Last Stent Placement:: 2014 Smoking Status: Former smoker - Past Family History Mother Family Medical History: Congestive Heart Failure (CHF), Diabetes Mellitus Additional Family Medical History / Comment(s): HEART ISSSUES. Mother of CHF at the age of 69yrs. Father Family Medical History: Blood Disorder Additional Family Medical History / Comment(s): HEMACHROMATOSIS. Father at the age of 69yrs from cirrhosis. He was not a drinker. Medications and Allergies Home Medications Medication Instructions Recorded Confirmed Type Hydrocodone/Acetaminophen 1 tab PO TID PRN 06/24/14 09/19/17 History [Hydrocodone/Acetaminophen 10-325] Atorvastatin [Lipitor] 80 mg PO HS #30 tab 07/18/14 09/19/17 Rx Nitroglycerin Sl Tabs [Nitrostat] 0.4 mg SUBLINGUAL Q5M PRN #25 tab 07/18/1402/28 Rx Aspirin 81 mg PO DAILY 09/17/15 09/19/17 History Clopidogrel [Plavix] 75 mg PO DAILY #30 tab 08/06/16 09/19/17 Rx Albuterol Nebulized [Ventolin 2.5 mg INHALATION RT-QID 12/04/16 09/19/17 History Nebulized] Metoprolol Succinate (ER) [Toprol 50 mg PO DAILY 02/11/17 09/19/17 History XL] PARoxetine HCL [Paxil] 60 mg PO DAILY 03/26/17 09/19/17 History Fludrocortisone [Florinef] 0.1 mg PO DAILY 08/29/17 09/19/17 History Latanoprost [Xalatan 0.005%] 1 drop LEFT EYE HS 08/29/17 09/19/17 History Oxybutynin Xl [Ditropan XL] 5 mg PO DAILY 08/29/17 09/19/17 History Primidone [Mysoline] 50 mg PO TID 08/29/17 09/19/17 History Propranolol [Inderal] 40 mg PO BID 08/29/17 09/19/17 History Zolpidem [Ambien] 5 mg PO HS PRN 08/29/17 09/19/17 History ALPRAZolam [Xanax] 0.5 mg PO TID PRN 09/16/17 09/19/17 History Cyanocobalamin (Vitamin B-12) 4,000 mcg PO DAILY 09/16/17 09/19/17 History [Vitamin B-12] Famotidine [Pepcid] 20 mg PO DAILY 09/16/17 09/19/17 History Lacosamide [Vimpat] 50 mg PO BID 09/16/17 09/19/17 History Spironolactone [Aldactone] 12.5 mg PO DAILY 09/16/17 09/19/17 History Tiotropium [place] [Spiriva] 1 cap INHALATION RT-DAILY 09/16/17 09/19/17 History Triamcinolone 0.1% Lotion [Kenalog 1 applic TOPICAL BID 09/16/17 09/19/17 History 0.1% Lotion] Varenicline [Chantix Continuing 1 mg PO BID 09/16/17 09/19/17 History Pack] buPROPion HCL [Wellbutrin XL] 150 mg PO DAILY 09/16/17 09/19/17 History Azithromycin [Zithromax] 500 mg PO DAILY #3 tab 09/17/17 09/19/17 Rx predniSONE 10 mg PO DAILY #30 tab 09/17/17 09/19/17 Rx Furosemide [Lasix] 20 mg PO BID 09/19/17 09/19/17 History Gabapentin [Neurontin] 300 mg PO TID 09/19/17 09/19/17 History Vitamin E (Dl,Tocopheryl Acet) 400 unit PO DAILY 09/19/17 09/19/17 History [Vitamin E] Allergies Allergy/AdvReac Type Severity Reaction Status Date / Time latanoprost Allergy Swelling Verified 09/19/17 09:49 Quinolones Allergy Rash/Hives Verified 09/19/17 09:49 Physical Exam Vitals: Vital Signs Temp Pulse Pulse Resp BP BP Pulse Ox 09/20/17 11:42 98.8 F 78 20 120/58 95 09/20/17 11:07 92 09/20/17 10:56 92 09/20/17 08:04 92 09/20/17 08:00 74 20 138/90 09/20/17 07:50 88 09/20/17 07:49 88 09/20/17 07:40 88 92 L 09/20/17 03:51 97.7 F 85 17 114/51 92 L 09/19/17 23:44 97.0 F L 87 18 142/79 96 09/19/17 23:38 108 H 09/19/17 23:26 108 H 09/19/17 20:00 97.0 F L 102 H 18 155/85 94 L 09/19/17 19:14 108 H 09/19/17 19:04 104 H 09/19/17 19:03 104 H 09/19/17 18:56 100 09/19/17 15:33 92 09/19/17 15:26 96 09/19/17 15:12 97.8 F 100 19 152/97 95 09/19/17 13:39 98.4 F 93 20 146/80 96 09/19/17 13:10 92 09/19/17 13:01 90 09/19/17 12:36 89 18 161/77 97 09/19/17 11:54 95 09/19/17 11:51 97 22 174/93 85 L Intake and Output 09/19/17 09/20/17 09/20/17 22:59 06:59 14:59 Intake Total 240 Balance 240 Intake: Oral 240 Other: # Voids 2 2 Weight 50.7 kg GENERAL: This is a 61-year-old female in no apparent distress at the time of examination. Patient is lethargic which may be secondary to Restoril administration last night and patient states she did not sleep well last night. HEENT: Head is atraumatic, normocephalic. Pupils are equal, round, and reactive to light. Sclerae anicteric. Conjunctivae are clear. Mucus membranes of the mouth are moist. Neck is supple. RESPIRATORY: Rhonchi with expiratory wheezing. No use of accessory muscles. Patient maintaining oxygen saturation greater than 92%. No chest wall tenderness is noted on palpation or with deep breathing. CARDIOVASCULAR: Regular rate and rhythm. S1 and S2 noted. No JVD noted. No S3 or S4 noted. GASTROINTESTINAL: No distention noted. Abdomen soft and round. Normal active bowel sounds auscultated x 4 quadrants. No pain or tenderness noted upon palpation. INTEGUMENTARY: Patient with ecchymosis to bilateral lower extremities. No cyanosis. No jaundice. No rashes noted. No cellulitis noted. EXTREMITIES: 2+ peripheral pulses. No evidence of peripheral edema. No calf tenderness noted. NEUROLOGIC: Cranial nerves II-XII intact. PSYCHIATRIC: Oriented X 3. Appropriate affect. Intact judgement and insight. Results CBC & Chem 7: 09/19/17 10:03 09/19/17 10:03 Labs: Abnormal Lab Results - Last 24 Hours (Table) 09/19/17 09/19/17 09/19/17 Range/Units 10:03 16:19 16:44 POC Glucose (mg/dL) 159 H (75-99) mg/dL CK-MB (CK-2) 4.4 H* (0.0-2.4) ng/mL Troponin I 0.055 H* 0.066 H* (0.000-0.034) ng/mL 09/19/17 09/19/17 09/20/17 Range/Units 20:55 21:52 05:56 POC Glucose (mg/dL) 188 H 177 H (75-99) mg/dL CK-MB (CK-2) (0.0-2.4) ng/mL Troponin I 0.053 H* (0.000-0.034) ng/mL 09/20/17 Range/Units 11:38 POC Glucose (mg/dL) 178 H (75-99) mg/dL CK-MB (CK-2) (0.0-2.4) ng/mL Troponin I (0.000-0.034) ng/mL Thrombosis Risk Factor Assmnt - Choose All That Apply Any of the Below Risk Factors Present?: Yes Each Factor Represents 1 point: Abnormal pulmonary function (COPD) Other Risk Factors: Yes Each Risk Factor Represents 2 Points: Age 61-74 years, Malignancy Other congenital or acquired thrombophilia - If yes, enter type in comment: No Thrombosis Risk Factor Assessment Total Risk Factor Score: 5 Thrombosis Risk Factor Assessment Level: High Risk Assessment and Plan Plan: ASSESSMENT: Acute exacerbation of chronic obstructive pulmonary disease Acute on chronic hypoxic respiratory failure, requiring home oxygen, secondary to COPD Recent hospitalization for COPD exacerbation Mildly abnormal troponins, EKG without ischemic changes, patient denies chest pain, likely secondary to hypoxia secondary to COPD Chronic diastolic congestive heart failure, ejection fraction 50-55% Coronary artery disease with previous myocardial infarction History of CABG 4 with mitral and tricuspid valve surgery in November 2016 Mild pulmonary hypertension Gastroesophageal reflux disease Hyperlipidemia Hypertension Microcytic, hypochromic anemia, type unknown Generalized anxiety disorder Depression, unspecified Nicotine dependence, in remission, patient states she quit smoking 6 weeks ago PLAN: Pulmonary on consult. Appreciate recommendations and input Continue IV steroids. wean per pulmonary Dr. Figueredo discussed possibility of daily low dose steroids with patient. Appreciate input from pulmonary regarding this. Continue nebulizer treatments Discontinue ambien. Continue restoril prn for insomnia. Novolog sliding scale Home meds as appropriate Monitor labs GI prophylaxis: Protonix 40 mg PO Daily DVT prophylaxis: Heparin 5000 units subcu every 12 hours Monitor vital signs and address as appropriate Discharge planning: Patient to return home when stable Further recommendations pending patient's course Nurse practitioner note has been reviewed by physician. Signing provider agrees with the documented findings, assessment, and plan of care.
--- NOTE | 2017-09-20 13:37 | P.PN ---
Subjective Progress Note Date: 09/20/17 Principal diagnosis: Acute on chronic hypoxic respiratory failure secondary to an acute exacerbation of chronic obstructive pulmonary disease. This is a 61-year-old white female who follows with Dr. Figueredo for primary care services, and Dr. Cardoso for her history of severe end-stage COPD with an FEV1 of 34% of predicted, who was just discharged on 09/17/2017 after being hospitalized for a COPD exacerbation. This morning she woke up very dyspneic, and her shortness of breath became progressively worse, she started calling her for help, but her did not hear her. Patient's granddaughter responded and found the patient in severe respiratory distress, panting and using accessory muscles of breathing. The granddaughter called 911 for assistance , en route patient was given 4 breathing treatments, and she was able to bring up some thick yellow sputum. She denied any fever or chills. She was currently on her prednisone taper, and she was supposed to take her last dose of Zithromax today. Denied any chest pain, denied any nausea vomiting. Chest x-ray completed in the emergency room showed hyperinflation compatible with COPD, no evidence for infiltrate, no evidence for atelectasis, no evidence for acute pulmonary process. EKG showed normal sinus rhythm with a rate of 94 BPM. Patient was hypoxemic on 2 L per nasal cannula her O2 sat was only 85%, she was in severe respiratory distress, using accessory muscles of breathing. Oxygen flow was increased to 4 L per nasal cannula, patient was started on IV Solu-Medrol, nebulized treatments, and admitted for further management. At the time of my evaluation the patient is resting in bed, mildly short of breath with conversation, but in no respiratory distress. Lung sounds are extremely diminished bilaterally. In addition patient has been having ongoing problems with insomnia, frequent nighttime awakening, and drowsiness during the day. Patient has recently quit smoking, 6 weeks ago, with the help of Chantix, however she is having issues with prior authorization to receive the second package of Chantix. Her maintenance inhalers and nebulizers include Symbicort, Spiriva, and albuterol nebulized treatments 4-5 times a day. Her other medical history includes coronary artery disease, status post coronary artery bypass grafting, mitral/tricuspid valve surgery in November 2016, pulmonary hypertension, GERD, hyperlipidemia, generalized anxiety disorder, depression, diastolic congestive heart failure, with ejection fraction of 50-55%, previous myocardial infarction, malignant tumor of right breast with previous lumpectomy followed by radiation therapy, peripheral vascular disease, and stents in bilateral lower extremities. The patient is seen again today 09/20/2017 in follow-up in the selective care unit. She is awake and alert in no acute distress. She is still having some dyspnea on minimal exertion. Currently maintaining good O2 saturations in the mid 90s on 3 L/m per nasal cannula. She's afebrile. Hemodynamically stable. Objective - Vital Signs Vital signs: Vital Signs Temp 98.8 F 09/20/17 11:42 Pulse 78 09/20/17 11:42 Resp 20 09/20/17 11:42 BP 120/58 09/20/17 11:42 Pulse Ox 95 09/20/17 11:42 Intake & Output 09/19/17 09/20/17 09/20/17 18:59 06:59 18:59 Intake Total 240 Balance 240 Weight 50.802 kg 50.7 kg Intake: Oral 240 Other: # Voids 1 2 - Exam GENERAL EXAM: Alert, pleasant, thin 61-year-old white female, mildly short of breath with conversation, but comfortable in no apparent distress. HEAD: Normocephalic/atraumatic. EYES: Normal reaction of pupils, equal size. Conjunctiva pink, sclera white. NOSE: Clear with pink turbinates. THROAT: No erythema or exudates. NECK: No masses, no JVD, no thyroid enlargement, no adenopathy. CHEST: No chest wall deformity. Symmetrical expansion. LUNGS: Diminished air entry bilaterally, no rhonchi, no wheezes. There is prolongation on forced maneuver CVS: Regular rate and rhythm, normal S1 and S2, no gallops, no murmurs, no rubs ABDOMEN: Soft, nontender. No hepatosplenomegaly, normal bowel sounds, no guarding or rigidity. EXTREMITIES: No clubbing, no edema, no cyanosis, 2+ pulses and upper and lower extremities. MUSCULOSKELETAL: Muscle strength and tone normal. SPINE: No scoliosis or deformity SKIN: No rashes CENTRAL NERVOUS SYSTEM: Alert and oriented -3. No focal deficits, tone is normal in all 4 extremities. PSYCHIATRIC: Alert and oriented -3. Appropriate affect. Intact judgment and insight. - Labs CBC & Chem 7: 09/19/17 10:03 04/09/18 10:03 Labs: Abnormal Lab Results - Last 24 Hours (Table) 09/19/17 09/19/17 09/19/17 Range/Units 16:19 16:44 20:55 POC Glucose (mg/dL) 159 H 188 H (75-99) mg/dL Troponin I 0.066 H* (0.000-0.034) ng/mL 09/19/17 09/20/17 09/20/17 Range/Units 21:52 05:56 11:38 POC Glucose (mg/dL) 177 H 178 H (75-99) mg/dL Troponin I 0.053 H* (0.000-0.034) ng/mL Assessment and Plan Assessment: Assessment: #1. Acute on chronic hypoxic respiratory failure secondary to an acute COPD exacerbation. Chest x-ray did not show any evidence of pneumonia, or any other pulmonary process #2. Recent hospitalization for acute COPD exacerbation, patient was discharged home on 09/17/2017 on a course of steroid taper, outpatient course of Zithromax , and patient's maintenance inhalers and nebulizer treatments. #3. Severe end-stage COPD, oxygen dependent, with baseline FEV1 of 34% of predicted #4. Coronary artery disease, status post coronary artery bypass grafting #5. History of mitral and tricuspid valve repair in November 2016 #6. History of myocardial infarction #7. Hypertension, hyperlipidemia #8. Chronic diastolic congestive heart failure, with ejection fraction between 50-55% #9. Mild pulmonary hypertension, with right ventricular systolic pressure 45 mmHg #10. Microcytic hypochromic anemia #11. Mild elevation of troponin, without acute ischemic changes on EKG, possibly related to acute hypoxemic respiratory failure #12. History of right breast cancer, with lumpectomy followed by radiation #13. GERD/reflux #14. History of osteoporosis #15. History of nicotine dependence, currently in remission Plan: The patient was seen and evaluated by Dr. Jiménez. We'll continue with her current treatment plan for now. We'll increase her activity as tolerated tolerated. We'll continue to follow make further recommendations based on her clinical status. I, the cosigning physician, performed a history & physical examination of the patient. Lungs sounds faint end expiratory wheeze. Diminished. Maintaining good O2 saturations in the 90s on 3 L/m per nasal cannula. I discussed the assessment and plan of care with my nurse practitioner, Katarina Levin. I attest to the above note as dictated by her.
[2017-09-20] MEDS: ALPRAZolam 0.5 MG TAB PO PRN ×2 (14:57→23:21)
[2017-09-20 15:10] LABS: Hemoglobin A1C 6.6 % (4.0-6.0)
[2017-09-20 17:02] LABS: Glucose,Whole Blood 136 mg/dL (75-99)
[2017-09-20] MEDS: ATORVASTATIN 80 MG TAB PO SCH (20:38)
[2017-09-20] MEDS: LATANOPROST 0.005% OPHTH DROPS 2.5 ML BTL LEFT EYE SCH (20:39)
[2017-09-20 20:52] LABS: Glucose,Whole Blood 188 mg/dL (75-99)
[2017-09-20] MEDS: TEMAZEPAM 15 MG CAP PO PRN (23:21)
[2017-09-21] MEDS: IPRATROPIUM-ALBUTEROL 3 ML NEB INHALATION PRN (05:00)
[2017-09-21 06:20] VITALS: BP 127/70; RESP 18; TEMP 98.1
[2017-09-21] MEDS: methylPREDNISolone SOD SUCCI 125 MG/2 ML VIAL IV SCH ×2 (06:34→11:34)
[2017-09-21] MEDS: FUROSEMIDE 20 MG TAB PO SCH (06:35)
[2017-09-21 07:17] LABS: Glucose,Whole Blood 197 mg/dL (75-99)
[2017-09-21] MEDS: FORMOTEROL FUMARATE 20 MCG/2 ML NEBU INHALATION SCH (07:21)
[2017-09-21] MEDS: IPRATROPIUM-ALBUTEROL 3 ML NEB INHALATION SCH ×2 (07:21→11:27)
[2017-09-21] MEDS: BUDESONIDE 1 MG/2 ML NEBU INHALATION SCH (07:21)
[2017-09-21] MEDS: INSULIN ASPART 100 UNIT/ML 1 ML 10 ML VIAL SQ SCH ×2 (08:03→13:49)
[2017-09-21] MEDS: ASPIRIN 81 MG PO SCH (08:04)
[2017-09-21] MEDS: FAMOTIDINE 20 MG TAB PO SCH (08:04)
[2017-09-21] MEDS: buPROPion XL 150 MG TAB.ER.24H PO SCH (08:04)
[2017-09-21] MEDS: FLUDROCORTISONE 0.1 MG TAB PO SCH (08:04)
[2017-09-21] MEDS: GABAPENTIN 300 MG CAP PO SCH (08:04)
[2017-09-21] MEDS: CLOPIDOGREL 75 MG TAB PO SCH (08:04)
[2017-09-21] MEDS: METOPROLOL SUCCINATE (ER) 50 MG TAB.ER.24H PO SCH (08:04)
[2017-09-21] MEDS: OXYBUTYNIN XL 5 MG TAB.ER.24 PO SCH (08:04)
[2017-09-21] MEDS: SPIRONOLACTONE 25 MG TAB PO SCH (08:05)
[2017-09-21] MEDS: PROPRANOLOL 40 MG TAB PO SCH (08:05)
[2017-09-21] MEDS: PARoxetine 20 MG TAB PO SCH (08:05)
[2017-09-21] MEDS: PRIMIDONE 50 MG TAB PO SCH (08:05)
[2017-09-21] MEDS: VARENICLINE 1 MG TAB PO SCH (08:06)
[2017-09-21] MEDS: TRIAMCINOLONE 0.1% CREAM 80 GM TUBE TOPICAL SCH (08:06)
[2017-09-21] MEDS: HEPARIN SODIUM,PORCINE 5,000 UNIT/ML 1 ML VIAL SQ SCH (08:09)
[2017-09-21] MEDS: HYDROcodone/APAP 10-325MG 1 EACH TAB PO PRN (08:23)
[2017-09-21] MEDS: LACOSAMIDE 50 MG TABLET PO SCH (08:29)
[2017-09-21 11:41] VITALS: PULSE 70
[2017-09-21 12:39] LABS: Glucose,Whole Blood 173 mg/dL (75-99)
--- NOTE | 2017-09-21 14:40 | P.PN ---
Subjective Progress Note Date: 09/21/17 Principal diagnosis: Acute on chronic hypoxic respiratory failure secondary to an acute exacerbation of chronic obstructive pulmonary disease This is a 61-year-old white female who follows with Dr. Figueredo for primary care services, and Dr. Cardoso for her history of severe end-stage COPD with an FEV1 of 34% of predicted, who was just discharged on 09/17/2017 after being hospitalized for a COPD exacerbation. This morning she woke up very dyspneic, and her shortness of breath became progressively worse, she started calling her for help, but her did not hear her. Patient's granddaughter responded and found the patient in severe respiratory distress, panting and using accessory muscles of breathing. The granddaughter called 911 for assistance , en route patient was given 4 breathing treatments, and she was able to bring up some thick yellow sputum. She denied any fever or chills. She was currently on her prednisone taper, and she was supposed to take her last dose of Zithromax today. Denied any chest pain, denied any nausea vomiting. Chest x-ray completed in the emergency room showed hyperinflation compatible with COPD, no evidence for infiltrate, no evidence for atelectasis, no evidence for acute pulmonary process. EKG showed normal sinus rhythm with a rate of 94 BPM. Patient was hypoxemic on 2 L per nasal cannula her O2 sat was only 85%, she was in severe respiratory distress, using accessory muscles of breathing. Oxygen flow was increased to 4 L per nasal cannula, patient was started on IV Solu-Medrol, nebulized treatments, and admitted for further management. At the time of my evaluation the patient is resting in bed, mildly short of breath with conversation, but in no respiratory distress. Lung sounds are extremely diminished bilaterally. In addition patient has been having ongoing problems with insomnia, frequent nighttime awakening, and drowsiness during the day. Patient has recently quit smoking, 6 weeks ago, with the help of Chantix, however she is having issues with prior authorization to receive the second package of Chantix. Her maintenance inhalers and nebulizers include Symbicort, Spiriva, and albuterol nebulized treatments 4-5 times a day. Her other medical history includes coronary artery disease, status post coronary artery bypass grafting, mitral/tricuspid valve surgery in November 2016, pulmonary hypertension, GERD, hyperlipidemia, generalized anxiety disorder, depression, diastolic congestive heart failure, with ejection fraction of 50-55%, previous myocardial infarction, malignant tumor of right breast with previous lumpectomy followed by radiation therapy, peripheral vascular disease, and stents in bilateral lower extremities. The patient is seen again today 09/20/2017 in follow-up in the selective care unit. She is awake and alert in no acute distress. She is still having some dyspnea on minimal exertion. Currently maintaining good O2 saturations in the mid 90s on 3 L/m per nasal cannula. She's afebrile. Hemodynamically stable. On 09/21/2017 patient seen in follow-up on medical surgical unit. She is resting comfortably in bed, sleeping, but was easily arousable. She denies any acute distress, she states she is less dyspneic today, less chest tightness reported. She has been ambulating to the bathroom and back, tolerating activity fairly well. Currently on 3 L per nasal cannula with O2 sat at 96%. She is afebrile, vital signs are stable. No acute events overnight, she is requesting to go home today. From pulmonary standpoint patient is stable for discharge home today. Follow up with Dr. Cardoso in the office in 7-10 days. Objective - Vital Signs Vital signs: Vital Signs Temp 98.1 F 09/21/17 06:20 Pulse 70 09/21/17 11:40 Resp 18 09/21/17 06:20 BP 127/70 09/21/17 06:20 Pulse Ox 96 09/21/17 07:24 Intake & Output 09/20/17 09/21/17 09/21/17 18:59 06:59 18:59 Intake Total 720 0 200 Balance 720 0 200 Weight 54 kg Intake: Oral 720 0 200 Other: Voiding Method Toilet # Voids 2 2 - Exam GENERAL EXAM: Alert, pleasant, thin 61-year-old white female, mildly short of breath with conversation, but comfortable in no apparent distress. HEAD: Normocephalic/atraumatic. EYES: Normal reaction of pupils, equal size. Conjunctiva pink, sclera white. NOSE: Clear with pink turbinates. THROAT: No erythema or exudates. NECK: No masses, no JVD, no thyroid enlargement, no adenopathy. CHEST: No chest wall deformity. Symmetrical expansion. LUNGS: Diminished air entry bilaterally, no rhonchi, no wheezes. There is prolongation on forced maneuver CVS: Regular rate and rhythm, normal S1 and S2, no gallops, no murmurs, no rubs ABDOMEN: Soft, nontender. No hepatosplenomegaly, normal bowel sounds, no guarding or rigidity. EXTREMITIES: No clubbing, no edema, no cyanosis, 2+ pulses and upper and lower extremities. MUSCULOSKELETAL: Muscle strength and tone normal. SPINE: No scoliosis or deformity SKIN: No rashes CENTRAL NERVOUS SYSTEM: Alert and oriented -3. No focal deficits, tone is normal in all 4 extremities. PSYCHIATRIC: Alert and oriented -3. Appropriate affect. Intact judgment and insight. - Labs CBC & Chem 7: 09/19/17 10:03 09/19/17 10:03 Labs: Abnormal Lab Results - Last 24 Hours (Table) 09/19/17 09/20/17 09/20/17 Range/Units 10:03 16:57 20:51 POC Glucose (mg/dL) 136 H 188 H (75-99) mg/dL Hemoglobin A1c 6.6 H (4.0-6.0) % 09/21/17 09/21/17 Range/Units 07:02 12:27 POC Glucose (mg/dL) 197 H 173 H (75-99) mg/dL Hemoglobin A1c (4.0-6.0) % Assessment and Plan Plan: Assessment: #1. Acute on chronic hypoxic respiratory failure secondary to an acute COPD exacerbation. Chest x-ray did not show any evidence of pneumonia, or any other pulmonary process #2. Recent hospitalization for acute COPD exacerbation, patient was discharged home on 09/17/2017 on a course of steroid taper, outpatient course of Zithromax , and patient's maintenance inhalers and nebulizer treatments. #3. Severe end-stage COPD, oxygen dependent, with baseline FEV1 of 34% of predicted #4. Coronary artery disease, status post coronary artery bypass grafting #5. History of mitral and tricuspid valve repair in November 2016 #6. History of myocardial infarction #7. Hypertension, hyperlipidemia #8. Chronic diastolic congestive heart failure, with ejection fraction between 50-55% #9. Mild pulmonary hypertension, with right ventricular systolic pressure 45 mmHg #10. Microcytic hypochromic anemia #11. Mild elevation of troponin, without acute ischemic changes on EKG, possibly related to acute hypoxemic respiratory failure #12. History of right breast cancer, with lumpectomy followed by radiation #13. GERD/reflux #14. History of osteoporosis #15. History of nicotine dependence, currently in remission Plan: Patient reports feeling and breathing better today, vital signs are stable, afebrile, denies any fever or chills, denies any chest congestion. Less dyspnea , less chest tightness. From pulmonary standpoint patient could be discharged home today, on prednisone taper, and her maintenance inhalers and nebulized treatments. Patient states there is a lot of stress at home, she had recently moved in with her grandchildren, and apparently there is a lot of fighting between her grandchildren which causes her to become anxious and possibly exacerbate her COPD. Patient was advised to abstain from smoking, she needs to follow up with Dr. Cardoso in the office in 7-[address] Figueredo had discussed with us the possibility of placing the patient on maintenance dose of prednisone for her advanced COPD, and it was agreed that patient can start on 10 mg of prednisone daily as a maintenance dose once she is finished with the taper. She will probably need a follow-up PFT in the office a month after the maintenance dose of prednisone was started. I performed a history & physical examination of the patient and discussed their management with my nurse practitioner, Lia Armando. I reviewed the nurse practitioner's note and agree with the documented findings and plan of care. Lung sounds are positive for decreased air entry bilaterally. The findings and the impression was discussed with the patient. I attest to the documentation by the nurse practitioner. Time with Patient: Less than 30
--- NOTE | 2017-09-21 16:24 | P.DS ---
Providers Date of admission: 09/19/17 12:38 Expected date of discharge: 09/21/17 Attending physician: Duarte Figueredo Consults: 09/19/17 12:38 Consult Physician Routine Consulting Provider: Jessica Cardoso Consult Reason/Comments: COPD exacerbation Do you want consulting provider notified?: Yes Primary care physician: [facility] Hospital Course: 61-year-old female who presented to the emergency room with a chief complaint of shortness of breath. The patient was discharged from [facility] on 09/17/2017 for COPD exacerbation and was prescribed zithromax and a prednisone taper which she states she has been taking. The patient states she was doing well until yesterday when she suddenly became short of breath. The patients granddaughter called 911. She received neubulizer treatments en route to the hospital. She denies chest pain or pressure. Denies nausea or vomiting. Denies dizziness or lightheadedness. The patient has a history of coronary artery disease, congestive heart failure, chronic obstructive pulmonary disease, gastroesophageal reflux disease, hyperlipidemia, myocardial infarction, and anxiety. The patient underwent a CABG 4 vessel with mitral valve and tricuspid valve surgery in November 2016. She denies alcohol use. She states she quit smoking 6 weeks ago and has been using Chantix. Chest x-ray: Negative for an acute pulmonary process. findings compatible with COPD. Laboratory data: WBC 12.4. Hemoglobin 9.2. Platelet count 409. Sodium 137. Potassium 4.3. BUN 27. Creatinine 0.59. AST 48. ALT 55. Troponin: 0.055, 0.066, 0.053 The patient was placed on IV steroids during hospitalization. She also received nebulizer treatments. Her breathing has returned back to her baseline. She was evaluated by pulmonary and cleared for discharge from their standpoint. Dr. Figueredo recommended daily prednisone as patient has had multiple admissions secondary to her COPD recently. Spoke with pulmonary J[employer]EL[employer] CONSULTANT who states that patient may begin on prednisone 10mg daily PO. The patient has a prednisone taper that she just started prior to this hospitalization. per pulmonary J[employer] CONSULT[employer], patient may resume with that taper at the time of discharge and does not require a new rx for taper. Patient to begin daily prednisone 10mg after she completes taper. No antibiotics recommended per pulmonary. The patient was deemed stable for discharge per Dr. Figueredo. She is to follow up on an outpatient basis with Dr. Figueredo and consulting providers. DISCHARGE DIAGNOSIS: Acute exacerbation of chronic obstructive pulmonary disease Acute on chronic hypoxic respiratory failure, requiring home oxygen, secondary to COPD Recent hospitalization for COPD exacerbation Mildly abnormal troponins, EKG without ischemic changes, patient denies chest pain, likely secondary to hypoxia secondary to COPD Chronic diastolic congestive heart failure, ejection fraction 50-55% Coronary artery disease with previous myocardial infarction History of CABG 4 with mitral and tricuspid valve surgery in November 2016 Mild pulmonary hypertension Gastroesophageal reflux disease Hyperlipidemia Hypertension Microcytic, hypochromic anemia, type unknown Generalized anxiety disorder Depression, unspecified Nicotine dependence, in remission, patient states she quit smoking 6 weeks ago Nurse practitioner note has been reviewed by physician. Signing provider agrees with the documented findings, assessment, and plan of care. Plan - Discharge Summary Discharge Rx Participant: No New Discharge Prescriptions: Continue Hydrocodone/Acetaminophen [Hydrocodone/Acetaminophen 10-325] 1 tab PO TID PRN PRN Reason: Pain Atorvastatin [Lipitor] 80 mg PO HS #30 tab Nitroglycerin Sl Tabs [Nitrostat] 0.4 mg SUBLINGUAL Q5M PRN #25 tab PRN Reason: Chest Pain Aspirin 81 mg PO DAILY Clopidogrel [Plavix] 75 mg PO DAILY #30 tab Albuterol Nebulized [Ventolin Nebulized] 2.5 mg INHALATION RT-QID Metoprolol Succinate (ER) [Toprol XL] 50 mg PO DAILY PARoxetine HCL [Paxil] 60 mg PO DAILY Oxybutynin Xl [Ditropan XL] 5 mg PO DAILY Zolpidem [Ambien] 5 mg PO HS PRN PRN Reason: Insomnia Latanoprost [Xalatan 0.005%] 1 drop LEFT EYE HS Fludrocortisone [Florinef] 0.1 mg PO DAILY Propranolol [Inderal] 40 mg PO BID Primidone [Mysoline] 50 mg PO TID buPROPion HCL [Wellbutrin XL] 150 mg PO DAILY Cyanocobalamin (Vitamin B-12) [Vitamin B-12] 4,000 mcg PO DAILY Triamcinolone 0.1% Lotion [Kenalog 0.1% Lotion] 1 applic TOPICAL BID Lacosamide [Vimpat] 50 mg PO BID Tiotropium [place] [Spiriva] 1 cap INHALATION RT-DAILY Spironolactone [Aldactone] 12.5 mg PO DAILY Famotidine [Pepcid] 20 mg PO DAILY Varenicline [Chantix Continuing Pack] 1 mg PO BID ALPRAZolam [Xanax] 0.5 mg PO TID PRN PRN Reason: Anxiety Vitamin E (Dl,Tocopheryl Acet) [Vitamin E] 400 unit PO DAILY Furosemide [Lasix] 20 mg PO BID Gabapentin [Neurontin] 300 mg PO TID predniSONE 10 mg PO DAILY #30 tab Discontinued Azithromycin [Zithromax] 500 mg PO DAILY #3 tab Discharge Medication List Hydrocodone/Acetaminophen [Hydrocodone/Acetaminophen 10-325] 1 tab PO TID PRN [History] Atorvastatin [Lipitor] 80 mg PO HS #30 tab 07/18/14 [Rx] Nitroglycerin Sl Tabs [Nitrostat] 0.4 mg SUBLINGUAL Q5M PRN #25 tab 07/18/14 [Rx ] Aspirin 81 mg PO DAILY 09/17/15 [History] Clopidogrel [Plavix] 75 mg PO DAILY #30 tab 08/06/16 [Rx] Albuterol Nebulized [Ventolin Nebulized] 2.5 mg INHALATION RT-QID 12/04/16 [ History] Metoprolol Succinate (ER) [Toprol XL] 50 mg PO DAILY 02/11/17 [History] PARoxetine HCL [Paxil] 60 mg PO DAILY 03/26/17 [History] Fludrocortisone [Florinef] 0.1 mg PO DAILY 08/29/17 [History] Latanoprost [Xalatan 0.005%] 1 drop LEFT EYE HS 08/29/17 [History] Oxybutynin Xl [Ditropan XL] 5 mg PO DAILY 08/29/17 [History] Primidone [Mysoline] 50 mg PO TID 08/29/17 [History] Propranolol [Inderal] 40 mg PO BID 08/29/17 [History] Zolpidem [Ambien] 5 mg PO HS PRN 08/29/17 [History] ALPRAZolam [Xanax] 0.5 mg PO TID PRN 09/16/17 [History] Cyanocobalamin (Vitamin B-12) [Vitamin B-12] 4,000 mcg PO DAILY 09/16/17 [ History] Famotidine [Pepcid] 20 mg PO DAILY 09/16/17 [History] Lacosamide [Vimpat] 50 mg PO BID 09/16/17 [History] Spironolactone [Aldactone] 12.5 mg PO DAILY 09/16/17 [History] Tiotropium [place] [Spiriva] 1 cap INHALATION RT-DAILY 09/16/17 [History] Triamcinolone 0.1% Lotion [Kenalog 0.1% Lotion] 1 applic TOPICAL BID 09/16/17 [ History] Varenicline [Chantix Continuing Pack] 1 mg PO BID 09/16/17 [History] buPROPion HCL [Wellbutrin XL] 150 mg PO DAILY 09/16/17 [History] Furosemide [Lasix] 20 mg PO BID 09/19/17 [History] Gabapentin [Neurontin] 300 mg PO TID 09/19/17 [History] Vitamin E (Dl,Tocopheryl Acet) [Vitamin E] 400 unit PO DAILY 09/19/17 [History] predniSONE 10 mg PO DAILY #30 tab 09/21/17 [Rx] Follow up Appointment(s)/Referral(s): Duarte Figueredo Jr, DO [Primary Care Provider] - 1-2 days Jessica Cardoso MD [STAFF PHYSICIAN] - 1 Week Patient Instructions/Handouts: COPD (Chronic Obstructive Pulmonary Disease) (DC ), Chronic Lung Disease and Infection Prevention (DC) Activity/Diet/Wound Care/Special Instructions: Patient has a prednisone taper at home that she just started prior to admission. Per pulmonary, patient may resume that at the time of discharge. After prednisone taper is completed, patient to begin prednisone 10mg daily Discharge Disposition: HOME SELF-CARE
== END 2017-09-21 14:51 | disposition home or self-care (01) | DRG 190 ==
LOC: EC 09:43 → 6SEL 12:38 → 4MS4W 09-20 21:34
PROVIDERS: ADMIT Family Medicine; ATTEND Family Medicine
DX: J44.1 Chronic obstructive pulmonary disease with (acute) exacerbation (principal); J96.21 Acute and chronic respiratory failure with hypoxia; I27.20 Pulmonary hypertension, unspecified; I11.0 Hypertensive heart disease with heart failure; I50.32 Chronic diastolic (congestive) heart failure; D50.9 Iron deficiency anemia, unspecified; F17.201 Nicotine dependence, unspecified, in remission; F32.9 Major depressive disorder, single episode, unspecified; G89.29 Other chronic pain; K21.9 Gastro-esophageal reflux disease without esophagitis; E78.5 Hyperlipidemia, unspecified; F41.1 Generalized anxiety disorder; I25.10 Atherosclerotic heart disease of native coronary artery without angina pectoris; I25.5 Ischemic cardiomyopathy; G47.00 Insomnia, unspecified; H40.9 Unspecified glaucoma; K90.0 Celiac disease; I73.9 Peripheral vascular disease, unspecified; M25.532 Pain in left wrist; M81.0 Age-related osteoporosis without current pathological fracture; Z82.49 Family history of ischemic heart disease and other diseases of the circulatory system; Z83.3 Family history of diabetes mellitus; Z95.1 Presence of aortocoronary bypass graft; Z95.5 Presence of coronary angioplasty implant and graft; Z98.890 Other specified postprocedural states; Z87.891 Personal history of nicotine dependence; I25.2 Old myocardial infarction; Z85.3 Personal history of malignant neoplasm of breast; Z99.81 Dependence on supplemental oxygen; Z79.899 Other long term (current) drug therapy; Z79.82 Long term (current) use of aspirin; Z79.02 Long term (current) use of antithrombotics/antiplatelets; Z92.3 Personal history of irradiation
CPT/HCPCS: 36415; 71046; 80053; 82550; 82553; 83036; 84484; 85025; 85610; 85730; 93005; 94640; 94760; 96374; 99291

== ENCOUNTER 2017-10-21 19:45 | Inpatient (IN) | payer OTHER ==
[2017-10-21] MEDS ORDERED: methylPREDNISolone SOD SUCCI 125 MG/2 ML VIAL IV STA (19:47)
[2017-10-21] MEDS ORDERED: ALBUTEROL NEBULIZED 2.5 MG/3 ML INHALATION STA (19:47)
[2017-10-21] MEDS ORDERED: MAGNESIUM SULFATE-D5W PMX 1 GM in DEXTROSE/WATER 1 100ML.BAG IVPB STA (19:47)
[2017-10-21] MEDS ORDERED: IPRATROPIUM 0.5 MG/2.5 ML NEBU INHALATION STA (19:47)
[2017-10-21] MEDS ORDERED: TERBUTALINE 1 MG/ML VIAL SQ STA (19:47)
--- NOTE | 2017-10-21 19:50 | ED ---
SOB HPI - General Stated Complaint: FESTUS - History of Present Illness Initial Comments: Patient presents with shortness of breath. She has a history of COPD. She is having trouble speaking because she is so short of breath. She does not complaining chest or belly pain. She has no nausea or vomiting. She was given a breathing treatment by EMS prior to arrival. She denies syncope. She has no palpitations. She has no pain or swelling in the legs. She denies sick contacts. She has not traveled anywhere. Nothing makes her symptoms better or worse. - Related Data Home Medications Medication Instructions Recorded Confirmed Hydrocodone/Acetaminophen 1 tab PO TID PRN 06/24/14 09/19/17 [Hydrocodone/Acetaminophen 10-325] Aspirin 81 mg PO DAILY 09/17/15 09/19/17 Albuterol Nebulized [Ventolin 2.5 mg INHALATION RT-QID 12/04/16 09/19/17 Nebulized] Metoprolol Succinate (ER) [Toprol 50 mg PO DAILY 02/11/17 09/19/17 XL] PARoxetine HCL [Paxil] 60 mg PO DAILY 03/26/17 09/19/17 Fludrocortisone [Florinef] 0.1 mg PO DAILY 08/29/17 09/19/17 Latanoprost [Xalatan 0.005%] 1 drop LEFT EYE HS 08/29/17 09/19/17 Oxybutynin Xl [Ditropan XL] 5 mg PO DAILY 08/29/17 09/19/17 Primidone [Mysoline] 50 mg PO TID 08/29/17 09/19/17 Propranolol [Inderal] 40 mg PO BID 08/29/17 09/19/17 Zolpidem [Ambien] 5 mg PO HS PRN 08/29/17 09/19/17 ALPRAZolam [Xanax] 0.5 mg PO TID PRN 09/16/17 09/19/17 Cyanocobalamin (Vitamin B-12) 4,000 mcg PO DAILY 09/16/17 09/19/17 [Vitamin B-12] Famotidine [Pepcid] 20 mg PO DAILY 09/16/17 09/19/17 Lacosamide [Vimpat] 50 mg PO BID 09/16/17 09/19/17 Spironolactone [Aldactone] 12.5 mg PO DAILY 09/16/17 09/19/17 Tiotropium [place] [Spiriva] 1 cap INHALATION RT-DAILY 09/16/17 09/19/17 Triamcinolone 0.1% Lotion [Kenalog 1 applic TOPICAL BID 09/16/17 09/19/17 0.1% Lotion] Varenicline [Chantix Continuing 1 mg PO BID 09/16/17 09/19/17 Pack] buPROPion HCL [Wellbutrin XL] 150 mg PO DAILY 09/16/17 09/19/17 Furosemide [Lasix] 20 mg PO BID 09/19/17 09/19/17 Gabapentin [Neurontin] 300 mg PO TID 09/19/17 09/19/17 Vitamin E (Dl,Tocopheryl Acet) 400 unit PO DAILY 09/19/17 09/19/17 [Vitamin E] Previous Rx's Medication Instructions Recorded Atorvastatin [Lipitor] 80 mg PO HS #30 tab 07/18/14 Nitroglycerin Sl Tabs [Nitrostat] 0.4 mg SUBLINGUAL Q5M PRN #25 tab 07/18/14 Clopidogrel [Plavix] 75 mg PO DAILY #30 tab 08/06/16 predniSONE 10 mg PO DAILY #30 tab 09/21/17 Allergies Allergy/AdvReac Type Severity Reaction Status Date / Time latanoprost Allergy Swelling Verified 09/19/17 09:49 Quinolones Allergy Rash/Hives Verified 09/19/17 09:49 Review of Systems ROS Statement: Those systems with pertinent positive or pertinent negative responses have been documented in the HPI. ROS Other: All systems not noted in ROS Statement are negative. Past Medical History Past Medical History: Coronary Artery Disease (CAD), Cancer, Heart Failure, COPD , Eye Disorder, GERD/Reflux, Hyperlipidemia, Myocardial Infarction ([place]), Pneumonia, Respiratory Disorder, Vascular Disorder Additional Past Medical History / Comment(s): chronic hypoxic respiratory failure, O2 at 2L/[place], pulmonary hypertension, ischemic cardiac myopathy, celiac disease, R breast cancer lumpectomy and raditaion tx, osteoporosis, PAD, chronic pain L wrist (previous injury with sx), L eye glaucoma, sinus problems. Last Myocardial Infarction Date:: 2014 History of Any Multi-Drug Resistant Organisms: None Reported Past Surgical History: Breast Surgery, Section, Coronary Bypass/CABG, Heart Catheterization With Stent, Orthopedic Surgery Additional Past Surgical History / Comment(s): 11/2016 CABG 4 vessel with mitral/ tricuspid surgery at [facility]-also had thoracentesis, R breast lumpectomy, L WRIST SX X3, D&C, 11-01-14 AORTAGRAM W/RUNOFF- CECILIO ILIAC STENTS, rthectomy/balloon angioplasty lt sfa. colonoscopy. Past Anesthesia/Blood Transfusion Reactions: No Reported Reaction Additional Past Anesthesia/Blood Transfusion Reaction / Comment(s): no hx blood transfusion Date of Last Stent Placement:: 2014 Smoking Status: Former smoker - Past Family History Mother Family Medical History: Congestive Heart Failure (CHF), Diabetes Mellitus Additional Family Medical History / Comment(s): HEART ISSSUES. Mother of CHF at the age of 69yrs. Father Family Medical History: Blood Disorder Additional Family Medical History / Comment(s): HEMACHROMATOSIS. Father at the age of 69yrs from cirrhosis. He was not a drinker. General Exam General appearance: alert, in no apparent distress Head exam: Present: atraumatic, normocephalic, normal inspection Eye exam: Present: normal appearance, PERRL, EOMI. Absent: scleral icterus, conjunctival injection, periorbital swelling ENT exam: Present: normal exam, mucous membranes moist Neck exam: Present: normal inspection. Absent: tenderness, meningismus, lymphadenopathy Respiratory exam: Present: respiratory distress, wheezes, decreased breath sounds. Absent: rales, rhonchi, stridor Cardiovascular Exam: Present: regular rate, normal rhythm, normal heart sounds. Absent: systolic murmur, diastolic murmur, rubs, gallop, clicks GI/Abdominal exam: Present: soft, normal bowel sounds. Absent: distended, tenderness, guarding, rebound, rigid Extremities exam: Present: normal inspection, full ROM, normal capillary refill. Absent: tenderness, pedal edema, joint swelling, calf tenderness Back exam: Present: normal inspection Neurological exam: Present: alert, oriented X3, CN II-XII intact Psychiatric exam: Present: normal affect, normal mood Skin exam: Present: warm, dry, intact, normal color. Absent: rash Course Vital Signs 10/21/17 19:55 Temperature 101.3 F H Pulse Rate 96 Respiratory 32 H Rate Blood Pressure 164/84 O2 Sat by Pulse 94 L Oximetry Medical Decision Making - Medical Decision Making Patient presents with shortness of breath. She is not feeling much better. She is febrile. She is tachycardic and hasn't elevated white count. She will be admitted to the hospital. - Lab Data Result diagrams: 10/21/17 19:58 10/21/17 19:58 Lab Results 10/21/17 10/21/17 10/21/17 Range/Units 19:58 19:58 19:58 WBC 20.4 H (3.8-10.6) k/uL RBC 4.90 (3.80-5.40) m/uL Hgb 10.3 L (11.4-16.0) gm/dL Hct 36.7 (34.0-46.0) % MCV 75.0 L (80.0-100.0) fL MCH 21.0 L (25.0-35.0) pg MCHC 28.0 L (31.0-37.0) g/dL RDW 17.5 H (11.5-15.5) % Plt Count 523 H (150-450) k/uL Neutrophils % 79 % Lymphocytes % 9 % Monocytes % 9 % Eosinophils % 1 % Basophils % 0 % Neutrophils # 16.1 H (1.3-7.7) k/uL Lymphocytes # 1.9 (1.0-4.8) k/uL Monocytes # 1.8 H (0-1.0) k/uL Eosinophils # 0.3 (0-0.7) k/uL Basophils # 0.0 (0-0.2) k/uL Hypochromasia Marked Poikilocytosis Slight Anisocytosis Slight Microcytosis Moderate Sodium 140 (137-145) mmol/L Potassium 3.9 (3.5-5.1) mmol/L Chloride 98 (98-107) mmol/L Carbon Dioxide 28 (22-30) mmol/L Anion Gap 14 mmol/L BUN 14 (7-17) mg/dL Creatinine 0.61 (0.52-1.04) mg/dL Est GFR (CKD-EPI)AfAm >90 (>60 ml/min/1.73 sqM) Est GFR (CKD-EPI)NonAf >90 (>60 ml/min/1.73 sqM) Glucose 75 (74-99) mg/dL Calcium 9.5 (8.4-10.2) mg/dL Total Bilirubin 0.4 (0.2-1.3) mg/dL AST 59 H (14-36) U/L ALT 51 (9-52) U/L Alkaline Phosphatase 69 (38-126) U/L NT-Pro-B Natriuret Pep 4130 pg/mL Total Protein 7.6 (6.3-8.2) g/dL Albumin 4.8 (3.5-5.0) g/dL 10/21/17 20:37 Twelve-lead EKG shows ventricular rate 95 bpm, normal ND interval and QRS, looks is, no ST elevation or depression, interpreted by me as normal sinus rhythm. Critical Care Time Critical Care Time: Yes Total Critical Care Time: 35 Disposition Clinical Impression: COPD (chronic obstructive pulmonary disease) Disposition: ADMITTED IP TO THIS HOSP Condition: Serious Is patient prescribed a controlled substance at d/c from ED?: No Referrals: Duarte Figueredo Jr, [Primary Care Provider] - 1-2 days
[2017-10-21] MEDS ORDERED: ACETAMINOPHEN TAB 500 MG TAB PO STA (20:04)
[2017-10-21 20:10] LABS: Anisocytosis Slight; Basophils % (A) 0 %; Eosinophils # (A) 0.3 k/uL (0-0.7); Eosinophils % (A) 1 %; HCT 36.7 % (34.0-46.0); HGB 10.3 gm/dL (11.4-16.0); Hypochromasia Marked; Lymphocytes # (A) 1.9 k/uL (1.0-4.8); Lymphocytes % (A) 9 %; Mean Platelet Volume 6.8; Microcytosis Moderate; Monocytes # (A) 1.8 k/uL (0-1.0); Monocytes % (A) 9 %; Neutrophils # (A) 16.1 k/uL (1.3-7.7); Neutrophils % (A) 79 %; Platelet Count 523 k/uL (150-450); Poikilocytosis Slight; RDW 17.5 % (11.5-15.5); WBC 20.4 k/uL (3.8-10.6)
[2017-10-21 20:20] LABS: ALT 51 U/L (9-52); AST 59 U/L (14-36); Albumin 4.8 g/dL (3.5-5.0); Alkaline Phosphatase 69 U/L (38-126); Anion Gap 14 mmol/L; Blood Urea Nitrogen 14 mg/dL (7-17); Calcium 9.5 mg/dL (8.4-10.2); Carbon Dioxide 28 mmol/L (22-30); Chloride 98 mmol/L (98-107); Glucose 75 mg/dL (74-99); Potassium 3.9 mmol/L (3.5-5.1); Sodium 140 mmol/L (137-145); Total Bilirubin 0.4 mg/dL (0.2-1.3); Total Protein 7.6 g/dL (6.3-8.2)
--- NOTE | 2017-10-21 20:21 | XR ---
EXAMINATION TYPE: XR chest 1V portable DATE OF EXAM: 10/21/2017 COMPARISON: 09/19/2017 HISTORY: Difficulty breathing TECHNIQUE: Single frontal view of the chest is obtained. FINDINGS: There is pulmonary vascular congestion. There is blunting of costophrenic angles. Heart is borderline enlarged. There is coarse interstitial density. IMPRESSION: COPD. There is probably mild heart failure. Small pleural effusions are increased compar ed to last exam.
[2017-10-21] MEDS ORDERED: NALOXONE 0.4 MG/ML 1 ML VIAL IV PRN (20:38)
[2017-10-21] MEDS ORDERED: ONDANSETRON 4 MG/2 ML VIAL IVP PRN (20:38)
[2017-10-21 20:53] LABS: INR 0.9 (<1.2); Prothrombin Time 9.4 sec (9.0-12.0)
[2017-10-21 20:55] LABS: Partial Thromboplastin Time 21.6 sec (22.0-30.0)
[2017-10-21] MEDS ORDERED: ATORVASTATIN 80 MG TAB PO SCH (21:00)
[2017-10-21] MEDS ORDERED: LATANOPROST 0.005% OPHTH DROPS 2.5 ML BTL LEFT EYE SCH (21:30)
[2017-10-21] MEDS: FUROSEMIDE 20 MG TAB PO SCH (22:59)
[2017-10-21] MEDS: GABAPENTIN 300 MG CAP PO SCH (22:59)
[2017-10-21] MEDS: ATORVASTATIN 80 MG TAB PO SCH ×2 (22:59→23:00)
[2017-10-21] MEDS: PROPRANOLOL 40 MG TAB PO SCH (23:00)
[2017-10-21] MEDS: FAMOTIDINE 20 MG TAB PO SCH (23:00)
[2017-10-21] MEDS ORDERED: ACETAMINOPHEN TAB 325 MG TAB PO PRN (23:16)
[2017-10-21] MEDS ORDERED: IPRATROPIUM-ALBUTEROL 3 ML NEB INHALATION PRN (23:35)
[2017-10-22] MEDS: LACOSAMIDE 50 MG TABLET PO SCH ×2 (06:01→10:06)
[2017-10-22] MEDS: ALPRAZolam 0.5 MG TAB PO PRN ×2 (06:15→14:27)
[2017-10-22] MEDS ORDERED: HYDROcodone/APAP 10-325MG 1 EACH TAB PO PRN (06:40)
[2017-10-22] MEDS: IPRATROPIUM-ALBUTEROL 3 ML NEB INHALATION SCH ×3 (07:26→15:30)
[2017-10-22] MEDS ORDERED: ALBUTEROL NEBULIZED 2.5 MG/3 ML INHALATION SCH (08:00)
[2017-10-22] MEDS ORDERED: IPRATROPIUM 0.5 MG/2.5 ML NEBU INHALATION SCH (08:00)
[2017-10-22] MEDS ORDERED: predniSONE 10 MG TAB PO SCH (09:00)
[2017-10-22] MEDS ORDERED: ASPIRIN 81 MG PO SCH (09:00)
[2017-10-22] MEDS ORDERED: SPIRONOLACTONE 25 MG TAB PO SCH (09:00)
[2017-10-22] MEDS ORDERED: METOPROLOL SUCCINATE (ER) 50 MG TAB.ER.24H PO SCH (09:00)
[2017-10-22] MEDS ORDERED: OXYBUTYNIN XL 5 MG TAB.ER.24 PO SCH (09:00)
[2017-10-22] MEDS ORDERED: PRIMIDONE 50 MG TAB PO SCH (09:00)
[2017-10-22] MEDS ORDERED: buPROPion XL 150 MG TAB.ER.24H PO SCH (09:00)
[2017-10-22] MEDS ORDERED: PARoxetine 20 MG TAB PO SCH (09:00)
[2017-10-22] MEDS ORDERED: CLOPIDOGREL 75 MG TAB PO SCH (09:00)
[2017-10-22] MEDS ORDERED: FLUDROCORTISONE 0.1 MG TAB PO SCH (09:00)
[2017-10-22 09:58] VITALS: TEMP 98.7
[2017-10-22] MEDS: FAMOTIDINE 20 MG TAB PO SCH (09:59)
[2017-10-22] MEDS: FUROSEMIDE 20 MG TAB PO SCH (10:00)
[2017-10-22] MEDS: GABAPENTIN 300 MG CAP PO SCH (10:00)
[2017-10-22] MEDS: PROPRANOLOL 40 MG TAB PO SCH (10:02)
[2017-10-22 13:45] VITALS: BP 116/58; RESP 14
--- NOTE | 2017-10-22 14:06 | P.HPIM ---
History of Present Illness H&P Date: 10/22/17 Chief Complaint: Shortness of breath Kasandra is a very anxious 61-year-old patient well-known to my practice who has a long-standing history of COPD recent history of valve replacement and open heart surgery. Long-standing history of anxiety syndrome patient has basically uses albuterol daily she steroid-dependent oxygen dependent beta agonist dependent and when the patient gets short of breath she takes back to back to back updraft treatments and becomes very shaky because of the side effect of the albuterol and is already somewhat irritated because of the side effects of the steroids and becomes scared and called EMS and comes to the hospital on a regular basis. Patient has no nausea no vomiting no fever no syncope no heart palpitations no edema and in fact was seen in the office approximately a week ago and was quite stable at that time however she did admit that she started smoking again and I don't think she ever really stopped Review of Systems Constitutional: Reports as per HPI Ears, nose, mouth and throat: Reports as per HPI, Reports hoarseness Cardiovascular: Reports as per HPI (No chest pain) Respiratory: Reports congestion, Reports dyspnea, Reports wheezing Gastrointestinal: Reports as per HPI Genitourinary: Reports as per HPI Menstruation: Reports as per HPI Musculoskeletal: Reports as per HPI Integumentary: Reports as per HPI Neurological: Reports as per HPI Psychiatric: Reports anxiety (Secondary to lung disease, also patient does overuse at times her albuterol) Past Medical History Past Medical History: Coronary Artery Disease (CAD), Cancer, Heart Failure, COPD , Eye Disorder, GERD/Reflux, Hyperlipidemia, Myocardial Infarction ([place]), Pneumonia, Respiratory Disorder, Vascular Disorder Additional Past Medical History / Comment(s): chronic hypoxic respiratory failure, O2 at 2L/[place], pulmonary hypertension, ischemic cardiac myopathy, celiac disease, R breast cancer lumpectomy and raditaion tx, osteoporosis, PAD, chronic pain L wrist (previous injury with sx), L eye glaucoma, sinus problems. Last Myocardial Infarction Date:: 2014 History of Any Multi-Drug Resistant Organisms: None Reported Past Surgical History: Breast Surgery, Section, Coronary Bypass/CABG, Heart Catheterization With Stent, Orthopedic Surgery Additional Past Surgical History / Comment(s): 11/2016 CABG 4 vessel with mitral/ tricuspid surgery at [facility]-also had thoracentesis, R breast lumpectomy, L WRIST SX X3, D&C, 11-01-14 AORTAGRAM W/RUNOFF- CECILIO ILIAC STENTS, rthectomy/balloon angioplasty lt sfa. colonoscopy. Past Anesthesia/Blood Transfusion Reactions: No Reported Reaction Additional Past Anesthesia/Blood Transfusion Reaction / Comment(s): no hx blood transfusion Date of Last Stent Placement:: 2014 Past Psychological History: Anxiety, Depression Additional Psychological History / Comment(s): , lives in the family home with her and 2 grandchildren ages 16 and 19yrs. Used to live in the [facility] but moved here several years ago. No pets in the home at this point in time. She's an ongoing tobacco smoker. No history of injection drug use or other recreational drug use is related at this time. She has no experience. No international travel. Pt has Oxygen which she wears at 2L/[place] . She drives. Smoking Status: Current every day smoker Past Alcohol Use History: None Reported Additional Past Alcohol Use History / Comment(s): Pt started smoking in 1968 and was up to 2 ppd. She quit smoking about August 2017 but is back smoking again. Past Drug Use History: None Reported - Past Family History Mother Family Medical History: Congestive Heart Failure (CHF), Diabetes Mellitus Additional Family Medical History / Comment(s): HEART ISSSUES. Mother of CHF at the age of 69yrs. Father Family Medical History: Blood Disorder Additional Family Medical History / Comment(s): HEMACHROMATOSIS. Father at the age of 69yrs from cirrhosis. He was not a drinker. Medications and Allergies Home Medications Medication Instructions Recorded Confirmed Type Hydrocodone/Acetaminophen 1 tab PO TID PRN 06/24/14 10/21/17 History [Hydrocodone/Acetaminophen 10-325] Atorvastatin [Lipitor] 80 mg PO HS #30 tab 07/18/14 10/21/17 Rx Nitroglycerin Sl Tabs [Nitrostat] 0.4 mg SUBLINGUAL Q5M PRN #25 tab 07/18/1404/30 Rx Aspirin 81 mg PO DAILY 09/17/15 10/21/17 History Clopidogrel [Plavix] 75 mg PO DAILY #30 tab 08/06/16 10/21/17 Rx Albuterol Nebulized [Ventolin 2.5 mg INHALATION RT-QID 12/04/16 10/21/17 History Nebulized] Metoprolol Succinate (ER) [Toprol 50 mg PO DAILY 02/11/17 10/21/17 History XL] PARoxetine HCL [Paxil] 60 mg PO DAILY 03/26/17 10/21/17 History Fludrocortisone [Florinef] 0.1 mg PO DAILY 08/29/17 10/21/17 History Oxybutynin Xl [Ditropan XL] 5 mg PO DAILY 08/29/17 10/21/17 History Primidone [Mysoline] 50 mg PO TID 08/29/17 10/21/17 History Propranolol [Inderal] 40 mg PO BID 08/29/17 10/21/17 History Zolpidem [Ambien] 5 mg PO HS PRN 08/29/17 10/21/17 History ALPRAZolam [Xanax] 0.5 mg PO TID PRN 09/16/17 10/21/17 History Cyanocobalamin (Vitamin B-12) 4,000 mcg PO DAILY 09/16/17 10/21/17 History [Vitamin B-12] Famotidine [Pepcid] 20 mg PO DAILY 09/16/17 10/21/17 History Spironolactone [Aldactone] 12.5 mg PO DAILY 09/16/17 10/21/17 History Tiotropium [place] [Spiriva] 1 cap INHALATION RT-DAILY 09/16/17 10/21/17 History buPROPion HCL [Wellbutrin XL] 150 mg PO DAILY 09/16/17 10/21/17 History Gabapentin [Neurontin] 300 mg PO TID 09/19/17 10/21/17 History Vitamin E (Dl,Tocopheryl Acet) 400 unit PO DAILY 09/19/17 10/21/17 History [Vitamin E] predniSONE 10 mg PO DAILY #30 tab 09/21/17 10/21/17 Rx Albuterol Sulfate [Proair Hfa] 1 - 2 puff INHALATION RT-Q6H PRN 10/21/17 History Furosemide [Lasix] 20 mg PO BID 10/21/17 10/21/17 History QUEtiapine [SEROquel] 50 mg PO HS 10/21/17 10/21/17 History rOPINIRole HCL [Requip] 1 mg PO HS 10/21/17 10/21/17 History Allergies Allergy/AdvReac Type Severity Reaction Status Date / Time latanoprost Allergy Swelling Verified 10/21/17 21:08 Quinolones Allergy Rash/Hives Verified 10/21/17 21:08 Physical Exam Osteopathic Statement: *. No significant issues noted on an osteopathic structural exam other than those noted in the History and Physical/Consult. Vitals: Vital Signs Temp Pulse Pulse Resp BP BP Pulse Ox 10/22/17 12:00 72 14 116/58 97 10/22/17 11:25 80 10/22/17 11:16 72 10/22/17 08:00 98.7 F 73 18 110/55 10/22/17 07:40 76 10/22/17 07:28 76 95 10/22/17 04:30 98.9 F 75 20 100/54 95 10/22/17 02:46 75 10/22/17 02:40 73 10/22/17 00:45 99.6 F 74 22 106/52 97 10/21/17 22:17 100.2 F H 94 20 113/59 92 L 10/21/17 21:54 94 28 H 115/59 93 L 10/21/17 21:22 95 28 H 136/72 95 10/21/17 21:08 92 10/21/17 21:07 99.1 F 10/21/17 21:05 95 32 H 153/72 95 10/21/17 20:40 30 H 10/21/17 20:20 94 10/21/17 19:55 101.3 F H 96 32 H 164/84 94 L Intake and Output 10/21/17 10/22/17 10/22/17 22:59 06:59 14:59 Intake Total 490 240 Balance 490 240 Intake: IV 10 0.9 10 Oral 480 240 Other: Voiding Method Bedside Commode Bedside Commode # Voids 2 Weight 49.895 kg 48 kg General: [Patient awake, alert and oriented times 3. Patient in no acute distress.] O2 per nasal cannula HEENT: [PERRL. EOMI. No pharyngeal erythema or exudate.] Neck: [No adenopathy.] Cardiac: [Heart regular in rate and rhythm. No S3. No S4. No clicks, rubs. No murmur.] Lungs: Diminished breath sounds bilaterally but clear Abdomen: [No mass. No organomegaly. Bowel sounds presnt and normoactive in all 4 quadrants.] Extremes: [No edema no cyanosis no claudication normal pulses] : [] Musculoskeletal: [No joint erythema, edema or tenderness.] Skin: [No rash.] Neurologic: [No lateralizing deficits. CN II - XII grossly intact.] Lymphatic: [No adenopathy.] Results CBC & Chem 7: 10/21/17 19:58 10/21/17 19:58 Labs: Abnormal Lab Results - Last 24 Hours (Table) 10/21/17 10/21/17 10/21/17 Range/Units 19:58 19:58 20:27 WBC 20.4 H (3.8-10.6) k/uL Hgb 10.3 L (11.4-16.0) gm/dL MCV 75.0 L (80.0-100.0) fL MCH 21.0 L (25.0-35.0) pg MCHC 28.0 L (31.0-37.0) g/dL RDW 17.5 H (11.5-15.5) % Plt Count 523 H (150-450) k/uL Neutrophils # 16.1 H (1.3-7.7) k/uL Monocytes # 1.8 H (0-1.0) k/uL APTT 21.6 L (22.0-30.0) sec Plasma Lactic Acid Bj (0.7-2.0) mmol/L AST 59 H (14-36) U/L 10/21/17 Range/Units 22:30 WBC (3.8-10.6) k/uL Hgb (11.4-16.0) gm/dL MCV (80.0-100.0) fL MCH (25.0-35.0) pg MCHC (31.0-37.0) g/dL RDW (11.5-15.5) % Plt Count (150-450) k/uL Neutrophils # (1.3-7.7) k/uL Monocytes # (0-1.0) k/uL APTT (22.0-30.0) sec Plasma Lactic Acid Bj 0.6 L (0.7-2.0) mmol/L AST (14-36) U/L Thrombosis Risk Factor Assmnt - Choose All That Apply Each Factor Represents 1 point: Abnormal pulmonary function (COPD), Heart failure (<1month) Each Risk Factor Represents 2 Points: Age 61-74 years Thrombosis Risk Factor Assessment Total Risk Factor Score: 4 Thrombosis Risk Factor Assessment Level: Moderate Risk Assessment and Plan (1) COPD (chronic obstructive pulmonary disease) Narrative/Plan: Discussed use of albuterol updraft treatments told patient that she needs to give them time to work that she can't continue to do them back to back to back to back. Patent patient agrees that she'll try to give her treatment time to work discussed also her need to cease and desist smoking for as far she stops smoking for a day and then started smoking again and this is been going on since her open heart surgery The plan today is to discharge patient home from the hospital to take her meds as appropriate including steroids and beta agonists patient was instructed to keep her oxygen on at all times Patient was instructed to follow-up in my office Tuesday or Tuesday which ever was convenient for her Current Visit: Yes Status: Acute Code(s): J44.9 - CHRONIC OBSTRUCTIVE PULMONARY DISEASE, UNSPECIFIED SNOMED Code(s): 75475284 (2) Anxiety Current Visit: No Status: Acute Code(s): F41.9 - ANXIETY DISORDER, UNSPECIFIED SNOMED Code(s): 06837841 Time with Patient: Greater than 30
--- NOTE | 2017-10-22 14:09 | P.DS ---
Providers Date of admission: 10/21/17 20:38 Expected date of discharge: 10/22/17 Attending physician: Duarte Figueredo Primary care physician: Duarte Figueredo - Discharge Diagnosis(es) (1) COPD (chronic obstructive pulmonary disease) Current Visit: Yes Status: Acute (2) Anxiety Current Visit: No Status: Acute Hospital Course: Admitted and started on steroids and long-acting beta agonist short-acting beta agonists Patient Condition at Discharge: Good Plan - Discharge Summary Discharge Rx Participant: No New Discharge Prescriptions: No Action Hydrocodone/Acetaminophen [Hydrocodone/Acetaminophen 10-325] 1 tab PO TID PRN PRN Reason: Pain Atorvastatin [Lipitor] 80 mg PO HS #30 tab Nitroglycerin Sl Tabs [Nitrostat] 0.4 mg SUBLINGUAL Q5M PRN #25 tab PRN Reason: Chest Pain Aspirin 81 mg PO DAILY Clopidogrel [Plavix] 75 mg PO DAILY #30 tab Albuterol Nebulized [Ventolin Nebulized] 2.5 mg INHALATION RT-QID Metoprolol Succinate (ER) [Toprol XL] 50 mg PO DAILY PARoxetine HCL [Paxil] 60 mg PO DAILY Oxybutynin Xl [Ditropan XL] 5 mg PO DAILY Zolpidem [Ambien] 5 mg PO HS PRN PRN Reason: Insomnia Fludrocortisone [Florinef] 0.1 mg PO DAILY Propranolol [Inderal] 40 mg PO BID Primidone [Mysoline] 50 mg PO TID buPROPion HCL [Wellbutrin XL] 150 mg PO DAILY Cyanocobalamin (Vitamin B-12) [Vitamin B-12] 4,000 mcg PO DAILY Tiotropium [place] [Spiriva] 1 cap INHALATION RT-DAILY Spironolactone [Aldactone] 12.5 mg PO DAILY Famotidine [Pepcid] 20 mg PO DAILY ALPRAZolam [Xanax] 0.5 mg PO TID PRN PRN Reason: Anxiety Vitamin E (Dl,Tocopheryl Acet) [Vitamin E] 400 unit PO DAILY Gabapentin [Neurontin] 300 mg PO TID predniSONE 10 mg PO DAILY #30 tab rOPINIRole HCL [Requip] 1 mg PO HS QUEtiapine [SEROquel] 50 mg PO HS Furosemide [Lasix] 20 mg PO BID Albuterol Sulfate [Proair Hfa] 1 - 2 puff INHALATION RT-Q6H PRN PRN Reason: Shortness Of Breath Discharge Medication List Hydrocodone/Acetaminophen [Hydrocodone/Acetaminophen 10-325] 1 tab PO TID PRN [History] Atorvastatin [Lipitor] 80 mg PO HS #30 tab 07/18/14 [Rx] Nitroglycerin Sl Tabs [Nitrostat] 0.4 mg SUBLINGUAL Q5M PRN #25 tab 07/18/14 [Rx ] Aspirin 81 mg PO DAILY 09/17/15 [History] Clopidogrel [Plavix] 75 mg PO DAILY #30 tab 08/06/16 [Rx] Albuterol Nebulized [Ventolin Nebulized] 2.5 mg INHALATION RT-QID 12/04/16 [ History] Metoprolol Succinate (ER) [Toprol XL] 50 mg PO DAILY 02/11/17 [History] PARoxetine HCL [Paxil] 60 mg PO DAILY 03/26/17 [History] Fludrocortisone [Florinef] 0.1 mg PO DAILY 08/29/17 [History] Oxybutynin Xl [Ditropan XL] 5 mg PO DAILY 08/29/17 [History] Primidone [Mysoline] 50 mg PO TID 08/29/17 [History] Propranolol [Inderal] 40 mg PO BID 08/29/17 [History] Zolpidem [Ambien] 5 mg PO HS PRN 08/29/17 [History] ALPRAZolam [Xanax] 0.5 mg PO TID PRN 09/16/17 [History] Cyanocobalamin (Vitamin B-12) [Vitamin B-12] 4,000 mcg PO DAILY 09/16/17 [ History] Famotidine [Pepcid] 20 mg PO DAILY 09/16/17 [History] Spironolactone [Aldactone] 12.5 mg PO DAILY 09/16/17 [History] Tiotropium [place] [Spiriva] 1 cap INHALATION RT-DAILY 09/16/17 [History] buPROPion HCL [Wellbutrin XL] 150 mg PO DAILY 09/16/17 [History] Gabapentin [Neurontin] 300 mg PO TID 09/19/17 [History] Vitamin E (Dl,Tocopheryl Acet) [Vitamin E] 400 unit PO DAILY 09/19/17 [History] predniSONE 10 mg PO DAILY #30 tab 09/21/17 [Rx] Albuterol Sulfate [Proair Hfa] 1 - 2 puff INHALATION RT-Q6H PRN 10/21/17 [ History] Furosemide [Lasix] 20 mg PO BID 10/21/17 [History] QUEtiapine [SEROquel] 50 mg PO HS 10/21/17 [History] rOPINIRole HCL [Requip] 1 mg PO HS 10/21/17 [History] Follow up Appointment(s)/Referral(s): Duarte Figueredo Jr, [Primary Care Provider] - 1-2 days
[2017-10-22 15:44] VITALS: PULSE 78
== END 2017-10-22 15:50 | disposition home or self-care (01) | DRG 191 ==
LOC: EC 19:45 → 5MS5E 20:38 → 6SEL 10-22 00:44
PROVIDERS: ADMIT Family Medicine; ATTEND Family Medicine
DX: J44.9 Chronic obstructive pulmonary disease, unspecified (principal); J96.11 Chronic respiratory failure with hypoxia; I27.20 Pulmonary hypertension, unspecified; I50.9 Heart failure, unspecified; I25.5 Ischemic cardiomyopathy; I25.10 Atherosclerotic heart disease of native coronary artery without angina pectoris; E78.5 Hyperlipidemia, unspecified; K21.9 Gastro-esophageal reflux disease without esophagitis; M81.0 Age-related osteoporosis without current pathological fracture; G89.29 Other chronic pain; M25.532 Pain in left wrist; H40.9 Unspecified glaucoma; K90.0 Celiac disease; F32.9 Major depressive disorder, single episode, unspecified; F41.9 Anxiety disorder, unspecified; G47.00 Insomnia, unspecified; I25.2 Old myocardial infarction; F17.210 Nicotine dependence, cigarettes, uncomplicated; Z71.6 Tobacco abuse counseling; Z99.81 Dependence on supplemental oxygen; Z79.82 Long term (current) use of aspirin; Z79.02 Long term (current) use of antithrombotics/antiplatelets; Z79.52 Long term (current) use of systemic steroids; Z79.899 Other long term (current) drug therapy; Z85.3 Personal history of malignant neoplasm of breast; Z87.01 Personal history of pneumonia (recurrent); Z95.1 Presence of aortocoronary bypass graft; Z95.820 Peripheral vascular angioplasty status with implants and grafts; Z95.5 Presence of coronary angioplasty implant and graft; Z95.2 Presence of prosthetic heart valve; Z88.1 Allergy status to other antibiotic agents; Z88.8 Allergy status to other drugs, medicaments and biological substances; Z82.49 Family history of ischemic heart disease and other diseases of the circulatory system; Z83.3 Family history of diabetes mellitus; Z83.49 Family history of other endocrine, nutritional and metabolic diseases; Z83.79 Family history of other diseases of the digestive system
CPT/HCPCS: 36415; 71045; 80053; 83605; 83880; 84484; 85025; 85610; 85730; 87040; 93005; 94640; 94644; 94660; 94760; 96365; 96372; 96375; 99291

== ENCOUNTER 2017-11-01 05:28 | Inpatient (IN) | payer OTHER ==
[2017-11-01 06:06] LABS: Anisocytosis Slight; Basophils % (A) 0 %; Eosinophils # (A) 0.2 k/uL (0-0.7); Eosinophils % (A) 2 %; HCT 31.7 % (34.0-46.0); HGB 9.7 gm/dL (11.4-16.0); Hypochromasia Marked; Lymphocytes # (A) 2.1 k/uL (1.0-4.8); Lymphocytes % (A) 19 %; MCH 21.9 pg (25.0-35.0); MCHC 30.7 g/dL (31.0-37.0); MCV 71.5 fL (80.0-100.0); Mean Platelet Volume 6.2; Microcytosis Moderate; Monocytes # (A) 1.3 k/uL (0-1.0); Monocytes % (A) 12 %; Neutrophils # (A) 6.7 k/uL (1.3-7.7); Neutrophils % (A) 63 %; Platelet Count 492 k/uL (150-450); Poikilocytosis Slight; RBC 4.43 m/uL (3.80-5.40); RDW 17.5 % (11.5-15.5); WBC 10.7 k/uL (3.8-10.6)
[2017-11-01 06:18] LABS: Prothrombin Time 10.1 sec (9.0-12.0)
[2017-11-01 06:20] LABS: ALT 64 U/L (9-52); AST 71 U/L (14-36); Albumin 3.6 g/dL (3.5-5.0); Alkaline Phosphatase 80 U/L (38-126); Anion Gap 10 mmol/L; Blood Urea Nitrogen 23 mg/dL (7-17); Calcium 8.9 mg/dL (8.4-10.2); Carbon Dioxide 35 mmol/L (22-30); Chloride 87 mmol/L (98-107); Glucose 116 mg/dL (74-99); Sodium 132 mmol/L (137-145); Total Bilirubin 0.3 mg/dL (0.2-1.3); Total Protein 6.1 g/dL (6.3-8.2)
[2017-11-01 06:43] LABS: Troponin I 0.018 ng/mL (0.000-0.034)
--- NOTE | 2017-11-01 06:45 | ED ---
General Adult HPI - General Source: patient, EMS, RN notes reviewed, old records reviewed Mode of arrival: EMS Limitations: no limitations <Artur Leslie - Last Filed: 11/01/17 07:05> <Petrona Eric - Last Filed: 11/01/17 08:35> - General Chief complaint: Shortness of Breath Stated complaint: FESTUS Time Seen by Provider: 11/01/17 06:34 - History of Present Illness Initial comments: This is a 61-year-old female the ER for evasive significant shortness of breath severe shortness of breath difficulty breathing, states she woke up with these symptoms this morning. Sudden onset. States she felt okay going to bed last night. Patient has a long calm. Medical history including a presenting lung disease or heart disease. No recent travel history no known sick contacts. Patient denies current chest pain, she is still anxious and feels that she can' t catch her breath does have A. fib states her heart rate has been running occasionally fast lately. (Artur Leslie) - Related Data Home Medications Medication Instructions Recorded Confirmed Hydrocodone/Acetaminophen 1 tab PO TID PRN 06/24/14 10/21/17 [Hydrocodone/Acetaminophen 10-325] Aspirin 81 mg PO DAILY 09/17/15 10/21/17 Albuterol Nebulized [Ventolin 2.5 mg INHALATION RT-QID 12/04/16 10/21/17 Nebulized] Metoprolol Succinate (ER) [Toprol 50 mg PO DAILY 02/11/17 10/21/17 XL] PARoxetine HCL [Paxil] 60 mg PO DAILY 03/26/17 10/21/17 Fludrocortisone [Florinef] 0.1 mg PO DAILY 08/29/17 10/21/17 Oxybutynin Xl [Ditropan XL] 5 mg PO DAILY 08/29/17 10/21/17 Primidone [Mysoline] 50 mg PO TID 08/29/17 10/21/17 Propranolol [Inderal] 40 mg PO BID 08/29/17 10/21/17 Zolpidem [Ambien] 5 mg PO HS PRN 08/29/17 10/21/17 ALPRAZolam [Xanax] 0.5 mg PO TID PRN 09/16/17 10/21/17 Cyanocobalamin (Vitamin B-12) 4,000 mcg PO DAILY 09/16/17 10/21/17 [Vitamin B-12] Famotidine [Pepcid] 20 mg PO DAILY 09/16/17 10/21/17 Spironolactone [Aldactone] 12.5 mg PO DAILY 09/16/17 10/21/17 Tiotropium [place] [Spiriva] 1 cap INHALATION RT-DAILY 09/16/17 10/21/17 buPROPion HCL [Wellbutrin XL] 150 mg PO DAILY 09/16/17 10/21/17 Gabapentin [Neurontin] 300 mg PO TID 09/19/17 10/21/17 Vitamin E (Dl,Tocopheryl Acet) 400 unit PO DAILY 09/19/17 10/21/17 [Vitamin E] Albuterol Sulfate [Proair Hfa] 1 - 2 puff INHALATION RT-Q6H PRN 10/21/17 Furosemide [Lasix] 20 mg PO BID 10/21/17 10/21/17 QUEtiapine [SEROquel] 50 mg PO HS 10/21/17 10/21/17 rOPINIRole HCL [Requip] 1 mg PO HS 10/21/17 10/21/17 Previous Rx's Medication Instructions Recorded Atorvastatin [Lipitor] 80 mg PO HS #30 tab 07/18/14 Nitroglycerin Sl Tabs [Nitrostat] 0.4 mg SUBLINGUAL Q5M PRN #25 tab 07/18/14 Clopidogrel [Plavix] 75 mg PO DAILY #30 tab 08/06/16 predniSONE 10 mg PO DAILY #30 tab 09/21/17 Allergies Allergy/AdvReac Type Severity Reaction Status Date / Time latanoprost Allergy Swelling Verified 11/01/17 07:28 Quinolones Allergy Rash/Hives Verified 11/01/17 07:28 Review of Systems ROS Other: All systems not noted in ROS Statement are negative. <Artur Leslie - Last Filed: 11/01/17 07:05> ROS Other: All systems not noted in ROS Statement are negative. <Petrona Eric - Last Filed: 11/01/17 08:35> ROS Statement: Those systems with pertinent positive or pertinent negative responses have been documented in the HPI. Past Medical History Past Medical History: Coronary Artery Disease (CAD), Cancer, Heart Failure, COPD , Eye Disorder, GERD/Reflux, Hyperlipidemia, Myocardial Infarction ([place]), Pneumonia, Respiratory Disorder, Vascular Disorder Additional Past Medical History / Comment(s): chronic hypoxic respiratory failure, O2 at 2L/NC, pulmonary hypertension, ischemic cardiac myopathy, celiac disease, R breast cancer lumpectomy and raditaion tx, osteoporosis, PAD, chronic pain L wrist (previous injury with sx), L eye glaucoma, sinus problems. Last Myocardial Infarction Date:: 2014 History of Any Multi-Drug Resistant Organisms: None Reported Past Surgical History: Breast Surgery, Section, Coronary Bypass/CABG, Heart Catheterization With Stent, Orthopedic Surgery Additional Past Surgical History / Comment(s): 11/2016 CABG 4 vessel with mitral/ tricuspid surgery at [facility]-also had thoracentesis, R breast lumpectomy, L WRIST SX X3, D&C, 11-01-14 AORTAGRAM W/RUNOFF- CECILIO ILIAC STENTS, rthectomy/balloon angioplasty lt sfa. colonoscopy. Past Anesthesia/Blood Transfusion Reactions: No Reported Reaction Additional Past Anesthesia/Blood Transfusion Reaction / Comment(s): no hx blood transfusion Date of Last Stent Placement:: 2014 Past Psychological History: Anxiety, Depression Smoking Status: Current every day smoker Past Alcohol Use History: None Reported Past Drug Use History: None Reported - Past Family History Mother Family Medical History: Congestive Heart Failure (CHF), Diabetes Mellitus Additional Family Medical History / Comment(s): HEART ISSSUES. Mother of CHF at the age of 69yrs. Father Family Medical History: Blood Disorder Additional Family Medical History / Comment(s): HEMACHROMATOSIS. Father at the age of 69yrs from cirrhosis. He was not a drinker. <Artur Leslie - Last Filed: 11/01/17 07:05> General Exam Limitations: no limitations General appearance: alert, anxious Head exam: Present: atraumatic, normocephalic, normal inspection Eye exam: Present: normal appearance, PERRL, EOMI. Absent: scleral icterus, conjunctival injection, periorbital swelling ENT exam: Present: normal exam, mucous membranes moist Neck exam: Present: normal inspection. Absent: tenderness, meningismus, lymphadenopathy Respiratory exam: Present: respiratory distress, wheezes, accessory muscle use, decreased breath sounds, prolonged expiratory. Absent: normal lung sounds bilaterally, rales, rhonchi, stridor Cardiovascular Exam: Present: regular rate, normal rhythm, normal heart sounds. Absent: systolic murmur, diastolic murmur, rubs, gallop, clicks GI/Abdominal exam: Present: soft, normal bowel sounds. Absent: distended, tenderness, guarding, rebound, rigid Extremities exam: Present: normal inspection, full ROM, normal capillary refill. Absent: tenderness, pedal edema, joint swelling, calf tenderness Back exam: Present: normal inspection Neurological exam: Present: alert, oriented X3, CN II-XII intact Psychiatric exam: Present: normal affect, normal mood Skin exam: Present: warm, dry, intact, normal color. Absent: rash <Artur Leslie - Last Filed: 11/01/17 07:05> Course <Artur Leslie - Last Filed: 11/01/17 07:05> <Petrona Eric - Last Filed: 11/01/17 08:35> Vital Signs 11/01/17 11/01/17 11/01/17 05:29 05:40 07:03 Temperature 97.4 F L Pulse Rate 76 78 Respiratory 32 H 26 H 22 Rate Blood Pressure 164/78 135/61 O2 Sat by Pulse 98 94 L Oximetry 11/01/17 11/01/17 11/01/17 07:15 07:27 07:40 Temperature Pulse Rate 72 70 76 Respiratory Rate Blood Pressure O2 Sat by Pulse Oximetry 11/01/17 07:49 Temperature Pulse Rate 75 Respiratory Rate Blood Pressure O2 Sat by Pulse Oximetry I was requested bynursing staff to follow-up on this patient, they stated they are no admission orders him I have paged Dr. Munoz I seen patient and reviewed the labs noticed that her O2 sat is still in the 80s though she is not in obvious distress at this point chest x-ray this possibility of pneumonia along with acute Exacerbation of COPD she be admitted to Dr. Duarte Basilio service ( Petrona Eric) - Reevaluation(s) Reevaluation #1: 11/01/17 07:06 Medical record is reviewed (Artur Leslie) Reevaluation #2: 11/01/17 07:06 Patient improved anxiolysis and breathing treatment (Artur Leslie) EKG Findings - EKG Comments: EKG Findings:: EKG shows normal sinus rhythm at 74, CO 134, QRS 90, QTc 446 <Artur Leslie - Last Filed: 11/01/17 07:05> Medical Decision Making - Lab Data Result diagrams: 11/01/17 05:42 11/01/17 05:42 - Radiology Data Radiology results: report reviewed (Chest x-rays negative for acute disease), image reviewed <Artur Leslie - Last Filed: 11/01/17 07:05> - Lab Data Result diagrams: 11/01/17 05:42 11/01/17 05:42 <Petrona Eric - Last Filed: 11/01/17 08:35> - Medical Decision Making 61 female the ER for evaluation of COPD exacerbation and difficulty breathing. Patient will be admitted for observation, breathing treatments and steroids ( Artur Leslie) - Lab Data Lab Results 11/01/17 11/01/17 11/01/17 Range/Units 05:42 05:42 05:42 WBC 10.7 H (3.8-10.6) k/uL RBC 4.43 (3.80-5.40) m/uL Hgb 9.7 L (11.4-16.0) gm/dL Hct 31.7 L (34.0-46.0) % MCV 71.5 L (80.0-100.0) fL MCH 21.9 L (25.0-35.0) pg MCHC 30.7 L (31.0-37.0) g/dL RDW 17.5 H (11.5-15.5) % Plt Count 492 H (150-450) k/uL Neutrophils % 63 % Lymphocytes % 19 % Monocytes % 12 % Eosinophils % 2 % Basophils % 0 % Neutrophils # 6.7 (1.3-7.7) k/uL Lymphocytes # 2.1 (1.0-4.8) k/uL Monocytes # 1.3 H (0-1.0) k/uL Eosinophils # 0.2 (0-0.7) k/uL Basophils # 0.0 (0-0.2) k/uL Hypochromasia Marked Poikilocytosis Slight Anisocytosis Slight Microcytosis Moderate PT (9.0-12.0) sec INR (<1.2) APTT (22.0-30.0) sec Sodium 132 L (137-145) mmol/L Potassium 4.0 (3.5-5.1) mmol/L Chloride 87 L (98-107) mmol/L Carbon Dioxide 35 H (22-30) mmol/L Anion Gap 10 mmol/L BUN 23 H (7-17) mg/dL Creatinine 0.70 (0.52-1.04) mg/dL Est GFR (CKD-EPI)AfAm >90 (>60 ml/min/1.73 sqM) Est GFR (CKD-EPI)NonAf >90 (>60 ml/min/1.73 sqM) Glucose 116 H (74-99) mg/dL Calcium 8.9 (8.4-10.2) mg/dL Total Bilirubin 0.3 (0.2-1.3) mg/dL AST 71 H (14-36) U/L ALT 64 H (9-52) U/L Alkaline Phosphatase 80 (38-126) U/L Total Creatine Kinase 146 H (30-135) U/L CK-MB (CK-2) 6.2 H* (0.0-2.4) ng/mL CK-MB (CK-2) Rel Index 4.2 Troponin I 0.018 (0.000-0.034) ng/mL Total Protein 6.1 L (6.3-8.2) g/dL Albumin 3.6 (3.5-5.0) g/dL 11/01/17 Range/Units 05:42 WBC (3.8-10.6) k/uL RBC (3.80-5.40) m/uL Hgb (11.4-16.0) gm/dL Hct (34.0-46.0) % MCV (80.0-100.0) fL MCH (25.0-35.0) pg MCHC (31.0-37.0) g/dL RDW (11.5-15.5) % Plt Count (150-450) k/uL Neutrophils % % Lymphocytes % % Monocytes % % Eosinophils % % Basophils % % Neutrophils # (1.3-7.7) k/uL Lymphocytes # (1.0-4.8) k/uL Monocytes # (0-1.0) k/uL Eosinophils # (0-0.7) k/uL Basophils # (0-0.2) k/uL Hypochromasia Poikilocytosis Anisocytosis Microcytosis PT 10.1 (9.0-12.0) sec INR 1.0 (<1.2) APTT 24.0 (22.0-30.0) sec Sodium (137-145) mmol/L Potassium (3.5-5.1) mmol/L Chloride (98-107) mmol/L Carbon Dioxide (22-30) mmol/L Anion Gap mmol/L BUN (7-17) mg/dL Creatinine (0.52-1.04) mg/dL Est GFR (CKD-EPI)AfAm (>60 ml/min/1.73 sqM) Est GFR (CKD-EPI)NonAf (>60 ml/min/1.73 sqM) Glucose (74-99) mg/dL Calcium (8.4-10.2) mg/dL Total Bilirubin (0.2-1.3) mg/dL AST (14-36) U/L ALT (9-52) U/L Alkaline Phosphatase (38-126) U/L Total Creatine Kinase (30-135) U/L CK-MB (CK-2) (0.0-2.4) ng/mL CK-MB (CK-2) Rel Index Troponin I (0.000-0.034) ng/mL Total Protein (6.3-8.2) g/dL Albumin (3.5-5.0) g/dL Disposition Is patient prescribed a controlled substance at d/c from ED?: No <Artur Leslie - Last Filed: 11/01/17 07:05> <Petrona Eric - Last Filed: 11/01/17 08:35> Clinical Impression: Acute exacerbation of chronic obstructive airways disease, Elevated troponin, Pneumonia Disposition: ADMITTED IP TO THIS HOSP Condition: Fair Referrals: Duarte Figueredo Jr, DO [Primary Care Provider] - 1-2 days
[2017-11-01 06:47] LABS: Creatine Kinase MB 6.2 ng/mL (0.0-2.4)
[2017-11-01] MEDS ORDERED: LORazepam 2 MG/ML INJ IV STA (07:02)
[2017-11-01] MEDS ORDERED: LORazepam 2 MG/ML INJ IV PRN (07:02)
[2017-11-01] MEDS ORDERED: ALBUTEROL NEBULIZED 2.5 MG/3 ML INHALATION STA (07:04)
[2017-11-01] MEDS ORDERED: IPRATROPIUM 0.5 MG/2.5 ML NEBU INHALATION STA (07:04)
[2017-11-01] MEDS ORDERED: methylPREDNISolone SOD SUCCI 125 MG/2 ML VIAL IV STA (07:04)
--- NOTE | 2017-11-01 07:20 | XR ---
EXAM: XR Chest, 2 Views CLINICAL HISTORY: ITS.REASON XR Reason: Pain TECHNIQUE: Frontal and lateral views of the chest. COMPARISON: Chest x-ray dated 09/19/2017. FINDINGS: Lungs: Mild patchy opacity in the right lung base appears slightly worsened compared to the prior exam and may represent atelectasis or mild pneumonia. Pleural space: Unremarkable. No pneumothorax. Heart: Unremarkable. No cardiomegaly. Mediastinum: Unremarkable. Bones/joints: Prior sternotomy and cardiac surgery. Osteopenia. Tubes, lines and devices: Loop recorder. IMPRESSION: Mild patchy opacity in the right lung base appears slightly worsened compared to the prior exam and may represent atelectasis or mild pneumonia.
[2017-11-01] MEDS ORDERED: IPRATROPIUM-ALBUTEROL 3 ML NEB INHALATION PRN (08:36)
[2017-11-01] MEDS ORDERED: ZOLPIDEM 5 MG TAB PO PRN (08:40)
[2017-11-01] MEDS ORDERED: NITROGLYCERIN SL TABS 0.4 MG TAB SUBLINGUAL PRN (08:40)
[2017-11-01] MEDS ORDERED: ALBUTEROL NEBULIZED 2.5 MG/3 ML INHALATION PRN (08:40)
[2017-11-01] MEDS ORDERED: cefTRIAXone IN SWFI 1,000 MG/10 ML SYRINGE IVP STA (08:46)
[2017-11-01] MEDS: ASPIRIN 81 MG PO SCH (09:57)
[2017-11-01] MEDS: CYANOCOBALAMIN 500 MCG TAB PO SCH (09:57)
[2017-11-01] MEDS: buPROPion XL 150 MG TAB.ER.24H PO SCH (09:57)
[2017-11-01] MEDS: CLOPIDOGREL 75 MG TAB PO SCH (09:57)
[2017-11-01] MEDS: AZITHROMYCIN 500 MG TAB PO SCH (09:57)
[2017-11-01] MEDS: OXYBUTYNIN XL 5 MG TAB.ER.24 PO SCH (09:57)
[2017-11-01] MEDS: FAMOTIDINE 20 MG TAB PO SCH (09:58)
[2017-11-01] MEDS: PARoxetine 20 MG TAB PO SCH (09:58)
[2017-11-01] MEDS: PRIMIDONE 50 MG TAB PO SCH ×3 (09:58→20:55)
[2017-11-01] MEDS: GABAPENTIN 300 MG CAP PO SCH ×3 (09:58→20:54)
[2017-11-01] MEDS: VITAMIN E (DL,TOCOPHERYL ACET) 400 UNIT CAP PO SCH (09:58)
[2017-11-01] MEDS: FUROSEMIDE 20 MG TAB PO SCH ×2 (09:58→16:21)
[2017-11-01] MEDS: FLUDROCORTISONE 0.1 MG TAB PO SCH (09:59)
[2017-11-01] MEDS: SPIRONOLACTONE 25 MG TAB PO SCH (10:02)
[2017-11-01] MEDS: PROPRANOLOL 40 MG TAB PO SCH ×2 (10:03→20:55)
[2017-11-01] MEDS: METOPROLOL SUCCINATE (ER) 50 MG TAB.ER.24H PO SCH (10:04)
[2017-11-01] MEDS: IPRATROPIUM-ALBUTEROL 3 ML NEB INHALATION SCH ×3 (11:06→19:51)
[2017-11-01] MEDS: methylPREDNISolone SOD SUCCI 125 MG/2 ML VIAL IV SCH ×3 (11:53→23:57)
--- NOTE | 2017-11-01 12:28 | P.CNPUL ---
History of Present Illness Consult date: 11/01/17 Requesting physician: Duarte Figueredo Jr Reason for consult: dyspnea Chief complaint: Severe shortness of breath History of present illness: Kasandra is a 61-year-old white female patient of Dr. Figueredo, who is well-known to our service, and follows Dr. Cardoso for her history of severe end-stage COPD with an FEV1 of 34% of predicted, with chronic hypercapnic respiratory failure, resented to the [facility] emergency department via EMS today on 11/01/2017 for severe respiratory distress at home, with sudden onset. Most history was obtained from the chart, related to patient being lethargic during our evaluation, and was not able to provide a detailed history of her present illness. Per nursing, patient was given a dose of Ativan for her severe anxiety related to acute respiratory distress in the emergency department. In the emergency department patient was in significant respiratory distress, using accessory muscles of breathing, lung sounds were decreased, with significantly prolonged expiratory phase. She was hypoxemic with pulse ox in the 80s during initial evaluation. Chest x-ray was completed, and has been reviewed by Dr. Dr. Jiménez. It shows right lower lobe patchy density, possibly an area of atelectasis. Lab work showed WBC of 13.4, hgb 8.2, serum sodium 139, potassium is 4.2, chloride is 99, CO2 of 30, BUN of 14 and creatinine 0.46. Troponin was negative 1, CK-MB was elevated at 4.3. Patient denied any sick contacts, influenza screen was negative. Patient states she is still smoking. Other past medical history includes coronary artery disease, status post coronary artery bypass grafting, history of mitral and tricuspid valve repair in 2017, history of myocardial infarction, hypertension, hyperlipidemia, chronic diastolic congestive heart failure with preserved left ventricular systolic function with EF 50-55%, mild pulmonary hypertension, chronic anemia, history of right breast cancer status post lumpectomy and radiation, GERD/reflux, osteoporosis, peripheral arterial disease, anxiety and depression. Patient is on the maintenance prednisone dose at 10 mg by mouth daily, Symbicort, albuterol nebulized treatments for her history of COPD. Patient was started on empiric antibiotics in the form of azithromycin and Rocephin, she has been started on nebulized bronchodilators, oral Lasix, and IV steroids, and admitted for further management. Review of Systems All systems: negative Constitutional: Denies chills, Denies fever Eyes: denies blurred vision, denies pain Ears, nose, mouth and throat: Denies headache, Denies sore throat Cardiovascular: Denies chest pain, Denies shortness of breath Respiratory: Reports dyspnea, Denies cough Gastrointestinal: Denies abdominal pain, Denies diarrhea, Denies nausea, Denies vomiting Genitourinary: Denies dysuria, Denies hematuria Musculoskeletal: Denies myalgias Integumentary: Denies pruritus, Denies rash Neurological: Denies numbness, Denies weakness Psychiatric: Denies anxiety, Denies depression Endocrine: Denies fatigue, Denies weight change Past Medical History Past Medical History: Coronary Artery Disease (CAD), Cancer, Heart Failure, COPD , Eye Disorder, GERD/Reflux, Hyperlipidemia, Myocardial Infarction ([place]), Pneumonia, Respiratory Disorder, Vascular Disorder Additional Past Medical History / Comment(s): chronic hypoxic respiratory failure, O2 at 2L/NC, pulmonary hypertension, ischemic cardiac myopathy, celiac disease, R breast cancer lumpectomy and raditaion tx, osteoporosis, PAD, chronic pain L wrist (previous injury with sx), L eye glaucoma, sinus problems. Last Myocardial Infarction Date:: 2014 History of Any Multi-Drug Resistant Organisms: None Reported Past Surgical History: Breast Surgery, Section, Coronary Bypass/CABG, Heart Catheterization With Stent, Orthopedic Surgery Additional Past Surgical History / Comment(s): 11/2016 CABG 4 vessel with mitral/ tricuspid surgery at [facility]-also had thoracentesis, R breast lumpectomy, L WRIST SX X3, D&C, 11-01-14 AORTAGRAM W/RUNOFF- CECILIO ILIAC STENTS, rthectomy/balloon angioplasty lt [facility]. colonoscopy. Past Anesthesia/Blood Transfusion Reactions: No Reported Reaction Additional Past Anesthesia/Blood Transfusion Reaction / Comment(s): no hx blood transfusion Date of Last Stent Placement:: 2014 Past Psychological History: Anxiety, Depression Additional Psychological History / Comment(s): , lives in the family home with her and 2 grandchildren ages 16 and 19yrs. Used to live in the [place] area but moved here several years ago. No pets in the home at this point in time. She's an ongoing tobacco smoker. No history of injection drug use or other recreational drug use is related at this time. She has no experience. No international travel. Pt has Oxygen which she wears at 2L/NC . She drives. Smoking Status: Current every day smoker Past Alcohol Use History: None Reported Additional Past Alcohol Use History / Comment(s): Pt started smoking in 1968 and was up to 2 ppd. She quit smoking about August 2017 but is back smoking again. Past Drug Use History: None Reported - Past Family History Mother Family Medical History: Congestive Heart Failure (CHF), Diabetes Mellitus Additional Family Medical History / Comment(s): HEART ISSSUES. Mother of CHF at the age of 69yrs. Father Family Medical History: Blood Disorder Additional Family Medical History / Comment(s): HEMACHROMATOSIS. Father at the age of 69yrs from cirrhosis. He was not a drinker. Medications and Allergies Home Medications Medication Instructions Recorded Confirmed Type Hydrocodone/Acetaminophen 1 tab PO TID PRN 06/24/14 11/01/17 History [Hydrocodone/Acetaminophen 10-325] Atorvastatin [Lipitor] 80 mg PO HS #30 tab 07/18/14 11/01/17 Rx Nitroglycerin Sl Tabs [Nitrostat] 0.4 mg SUBLINGUAL Q5M PRN #25 tab 07/18/14 Rx Aspirin 81 mg PO DAILY 09/17/15 11/01/17 History Clopidogrel [Plavix] 75 mg PO DAILY #30 tab 08/06/16 11/01/17 Rx Albuterol Nebulized [Ventolin 2.5 mg INHALATION RT-QID 12/04/16 11/01/17 History Nebulized] Metoprolol Succinate (ER) [Toprol 50 mg PO DAILY 02/11/17 11/01/17 History XL] PARoxetine HCL [Paxil] 60 mg PO DAILY 03/26/17 11/01/17 History Fludrocortisone [Florinef] 0.1 mg PO DAILY 08/29/17 11/01/17 History Oxybutynin Xl [Ditropan XL] 5 mg PO DAILY 08/29/17 11/01/17 History Primidone [Mysoline] 50 mg PO TID 08/29/17 11/01/17 History Propranolol [Inderal] 40 mg PO BID 08/29/17 11/01/17 History Zolpidem [Ambien] 5 mg PO HS PRN 08/29/17 11/01/17 History Cyanocobalamin (Vitamin B-12) 4,000 mcg PO DAILY 09/16/17 11/01/17 History [Vitamin B-12] Famotidine [Pepcid] 20 mg PO DAILY 09/16/17 11/01/17 History Spironolactone [Aldactone] 12.5 mg PO DAILY 09/16/17 11/01/17 History Tiotropium [place] [Spiriva] 1 cap INHALATION RT-DAILY 09/16/17 11/01/17 History buPROPion HCL [Wellbutrin XL] 150 mg PO DAILY 09/16/17 11/01/17 History Gabapentin [Neurontin] 300 mg PO TID 09/19/17 11/01/17 History Vitamin E (Dl,Tocopheryl Acet) 400 unit PO DAILY 09/19/17 11/01/17 History [Vitamin E] predniSONE 10 mg PO DAILY #30 tab 09/21/17 11/01/17 Rx Albuterol Sulfate [Proair Hfa] 1 - 2 puff INHALATION RT-Q6H PRN 10/21/17 History Furosemide [Lasix] 20 mg PO BID 10/21/17 11/01/17 History QUEtiapine [SEROquel] 50 mg PO HS 10/21/17 11/01/17 History rOPINIRole HCL [Requip] 1 mg PO HS 10/21/17 11/01/17 History ALPRAZolam [Xanax] 0.25 mg PO TID PRN 11/01/17 11/01/17 History Budesonide/Formoterol Fumarate 2 puff INHALATION RT-BID 11/01/17 11/01/17 History [Symbicort 160-4.5 Mcg Inhaler] Lacosamide [Vimpat] 50 mg PO BID 11/01/17 11/01/17 History Latanoprost [Xalatan 0.005%] 1 drop LEFT EYE HS 11/01/17 11/01/17 History Allergies Allergy/AdvReac Type Severity Reaction Status Date / Time latanoprost Allergy Swelling Verified 11/01/17 07:28 Quinolones Allergy Rash/Hives Verified 11/01/17 07:28 Physical Exam Vitals: Vital Signs Temp Pulse Pulse Resp BP BP Pulse Ox 11/01/17 11:16 76 16 11/01/17 11:06 74 16 97 11/01/17 10:21 98.2 F 96 16 124/59 96 11/01/17 09:59 98.2 F 79 16 132/63 93 L 11/01/17 09:24 98.9 F 79 18 120/58 92 L 11/01/17 07:49 75 11/01/17 07:40 76 11/01/17 07:27 70 11/01/17 07:15 72 11/01/17 07:03 78 22 135/61 94 L 11/01/17 05:40 26 H 11/01/17 05:29 97.4 F L 76 32 H 164/78 98 Intake and Output 10/31/17 11/01/17 11/01/17 22:59 06:59 14:59 Other: Weight 45.359 kg 45.359 kg GENERAL EXAM: obtunded 61-year-old White Female, resting quietly in bed, arousable to repeated verbal and tactile stimulation, comfortable in no apparent distress. HEAD: Normocephalic/atraumatic. EYES: Normal reaction of pupils, equal size. Conjunctiva pink, sclera white. NOSE: Clear with pink turbinates. THROAT: No erythema or exudates. NECK: No masses, no JVD, no thyroid enlargement, no adenopathy. CHEST: No chest wall deformity. Symmetrical expansion. LUNGS: Diminished breath sounds bilaterally, equal air entry with no crackles, wheeze, rhonchi or dullness. CVS: Regular rate and rhythm, normal S1 and S2, no gallops, no murmurs, no rubs ABDOMEN: Soft, nontender. No hepatosplenomegaly, normal bowel sounds, no guarding or rigidity. EXTREMITIES: No clubbing, no cyanosis, 2+ pulses and upper and lower extremities. 1+ pitting edema noted bilaterally MUSCULOSKELETAL: Muscle strength and tone normal. SPINE: No scoliosis or deformity SKIN: No rashes CENTRAL NERVOUS SYSTEM: Alert and oriented -3. No focal deficits, tone is normal in all 4 extremities. PSYCHIATRIC: Alert and oriented -3. Appropriate affect. Intact judgment and insight. Results - Laboratory Findings CBC and BMP: 11/01/17 05:42 11/01/17 05:42 PT/INR, D-dimer PT 10.1 sec (9.0-12.0) 11/01/17 05:42 INR 1.0 (<1.2) 11/01/17 05:42 Abnormal lab findings: Abnormal Labs 11/01/17 11/01/17 11/01/17 05:42 05:42 05:42 WBC 10.7 H Hgb 9.7 L Hct 31.7 L MCV 71.5 L MCH 21.9 L MCHC 30.7 L RDW 17.5 H Plt Count 492 H Monocytes # 1.3 H Sodium 132 L Chloride 87 L Carbon Dioxide 35 H BUN 23 H Glucose 116 H AST 71 H ALT 64 H Total Creatine Kinase 146 H CK-MB (CK-2) 6.2 H* Total Protein 6.1 L - Diagnostic Findings Chest x-ray: report reviewed, image reviewed Additional studies: EKG reviewed Assessment and Plan Plan: Assessment: #1. Acute on chronic hypoxemic respiratory failure secondary to acute exacerbation of COPD, and the chest x-ray was reviewed, and and there is a right lower lobe atelectasis versus minimal pneumonitis in the right lower lobe #2. Chronic hypercapnic respiratory failure secondary to advanced oxygen- dependent, steroid-dependent COPD, with an FEV1 of 34% of predicted #3. Coronary artery disease status post coronary artery bypass grafting #4. History of mitral and tricuspid valve repair in November 2016 #5. History of myocardial infarction, #6. History of peripheral arterial disease #7. Nicotine addiction, chronic and ongoing #8. Chronic diastolic congestive heart failure with ejection fraction between 50 and 55% #9. Mild pulmonary hypertension, with right ventricular systolic pressure of 45 mmHg #9. Chronic anemia, #10. History of right breast cancer, with lumpectomy followed by radiation #11. GERD/reflux #12. History of osteoporosis Plan: Continue IV steroids, continue empiric antibiotics, continue DuoNeb nebulized treatments, we will add Pulmicort and Perforomist in place of Symbicort. Continue monitoring labs, continue monitoring vital signs, fever pattern. No significant sputum production or chest congestion, chest x-ray was reviewed by Dr. Dr. Jiménez and shows right lower lobe area of patchy atelectasis versus minimal pneumonitis. We will avoid Ativan. We'll continue to follow I performed a history & physical examination of the patient and discussed their management with my nurse practitioner, Lia Armando. I reviewed the nurse practitioner's note and agree with the documented findings and plan of care. Lung sounds are diminished. The findings and the impression was discussed with the patient. I attest to the documentation by the nurse practitioner. Time with Patient: Greater than 30
--- NOTE | 2017-11-01 14:58 | P.HPIM ---
History of Present Illness H&P Date: 11/01/17 Chief Complaint: Shortness of breath 61-year-old female who presented to the emergency room with a chief complaint of shortness of breath that started suddenly. Patient has a history of severe COPD and is admitted frequently to the hospital. The patient was in respiratory distress in the emergency room and was very anxious. She was given a dose of IV ativan for her anxiety. The patient is lethargic at the time of evaluation and is unable to give a detailed history. History is obtained from EMR and nursing. Patient is arousable to verbal stimuli but will only answer one or two words. The patient has a history of coronary artery disease, congestive heart failure, COPD, GERD, hyperlipidemia, myocardial infarction, and anxiety. The patient underwent 4 vessel CABG with mitral valve and tricuspid value surgery in November 2016. She is currently smoking cigarettes. Chest x-ray: Mild patchy opacity in the right lung base appears slightly worsened compared to prior exam and may represent atelectasis or mild pneumonia. Laboratory data: WBC 10.7. Hemoglobin 9.7. Platelet count 492. Sodium 132. Potassium 4.0. BUN 23. Creatinine 0.70. AST 71. ALT 64. Troponin: 0.018 The patient was admitted to the hospital under the care of Dr. Figueredo. She was started on IV steroids and neubulizer treatments. She received a dose of Rocephin in the emergency room. She was also started on Zithromax. Consultations were placed to pulmonary. Review of Systems ROS unobtainable: due to mental status Past Medical History Past Medical History: Coronary Artery Disease (CAD), Cancer, Heart Failure, COPD , Eye Disorder, GERD/Reflux, Hyperlipidemia, Myocardial Infarction (OH), Pneumonia, Respiratory Disorder, Vascular Disorder Additional Past Medical History / Comment(s): chronic hypoxic respiratory failure, O2 at 2L/NC, pulmonary hypertension, ischemic cardiac myopathy, celiac disease, R breast cancer lumpectomy and raditaion tx, osteoporosis, PAD, chronic pain L wrist (previous injury with sx), L eye glaucoma, sinus problems. Last Myocardial Infarction Date:: 2014 History of Any Multi-Drug Resistant Organisms: None Reported Past Surgical History: Breast Surgery, Section, Coronary Bypass/CABG, Heart Catheterization With Stent, Orthopedic Surgery Additional Past Surgical History / Comment(s): 11/2016 CABG 4 vessel with mitral/ tricuspid surgery at [facility]-also had thoracentesis, R breast lumpectomy, L WRIST SX X3, D&C, 11-01-14 AORTAGRAM W/RUNOFF- CECILIO ILIAC STENTS, rthectomy/balloon angioplasty lt sfa. colonoscopy. Past Anesthesia/Blood Transfusion Reactions: No Reported Reaction Additional Past Anesthesia/Blood Transfusion Reaction / Comment(s): no hx blood transfusion Date of Last Stent Placement:: 2014 Past Psychological History: Anxiety, Depression Additional Psychological History / Comment(s): , lives in the family home with her and 2 grandchildren ages 16 and 19yrs. Used to live in the [facility] but moved here several years ago. No pets in the home at this point in time. She's an ongoing tobacco smoker. No history of injection drug use or other recreational drug use is related at this time. She has no experience. No international travel. Pt has Oxygen which she wears at 2L/NC . She drives. Smoking Status: Current every day smoker Past Alcohol Use History: None Reported Additional Past Alcohol Use History / Comment(s): Pt started smoking in 1968 and was up to 2 ppd. She quit smoking about August 2017 but is back smoking again. Past Drug Use History: None Reported - Past Family History Mother Family Medical History: Congestive Heart Failure (CHF), Diabetes Mellitus Additional Family Medical History / Comment(s): HEART ISSSUES. Mother of CHF at the age of 69yrs. Father Family Medical History: Blood Disorder Additional Family Medical History / Comment(s): HEMACHROMATOSIS. Father at the age of 69yrs from cirrhosis. He was not a drinker. Medications and Allergies Home Medications Medication Instructions Recorded Confirmed Type Hydrocodone/Acetaminophen 1 tab PO TID PRN 06/24/14 11/01/17 History [Hydrocodone/Acetaminophen 10-325] Atorvastatin [Lipitor] 80 mg PO HS #30 tab 07/18/14 11/01/17 Rx Nitroglycerin Sl Tabs [Nitrostat] 0.4 mg SUBLINGUAL Q5M PRN #25 tab 07/18/14 Rx Aspirin 81 mg PO DAILY 09/17/15 11/01/17 History Clopidogrel [Plavix] 75 mg PO DAILY #30 tab 08/06/16 11/01/17 Rx Albuterol Nebulized [Ventolin 2.5 mg INHALATION RT-QID 12/04/16 11/01/17 History Nebulized] Metoprolol Succinate (ER) [Toprol 50 mg PO DAILY 02/11/17 11/01/17 History XL] PARoxetine HCL [Paxil] 60 mg PO DAILY 03/26/17 11/01/17 History Fludrocortisone [Florinef] 0.1 mg PO DAILY 08/29/17 11/01/17 History Oxybutynin Xl [Ditropan XL] 5 mg PO DAILY 08/29/17 11/01/17 History Primidone [Mysoline] 50 mg PO TID 08/29/17 11/01/17 History Propranolol [Inderal] 40 mg PO BID 08/29/17 11/01/17 History Zolpidem [Ambien] 5 mg PO HS PRN 08/29/17 11/01/17 History Cyanocobalamin (Vitamin B-12) 4,000 mcg PO DAILY 09/16/17 11/01/17 History [Vitamin B-12] Famotidine [Pepcid] 20 mg PO DAILY 09/16/17 11/01/17 History Spironolactone [Aldactone] 12.5 mg PO DAILY 09/16/17 11/01/17 History Tiotropium [place] [Spiriva] 1 cap INHALATION RT-DAILY 09/16/17 11/01/17 History buPROPion HCL [Wellbutrin XL] 150 mg PO DAILY 09/16/17 11/01/17 History Gabapentin [Neurontin] 300 mg PO TID 09/19/17 11/01/17 History Vitamin E (Dl,Tocopheryl Acet) 400 unit PO DAILY 09/19/17 11/01/17 History [Vitamin E] predniSONE 10 mg PO DAILY #30 tab 09/21/17 11/01/17 Rx Albuterol Sulfate [Proair Hfa] 1 - 2 puff INHALATION RT-Q6H PRN 10/21/17 History Furosemide [Lasix] 20 mg PO BID 10/21/17 11/01/17 History QUEtiapine [SEROquel] 50 mg PO HS 10/21/17 11/01/17 History rOPINIRole HCL [Requip] 1 mg PO HS 10/21/17 11/01/17 History ALPRAZolam [Xanax] 0.25 mg PO TID PRN 11/01/17 11/01/17 History Budesonide/Formoterol Fumarate 2 puff INHALATION RT-BID 11/01/17 11/01/17 History [Symbicort 160-4.5 Mcg Inhaler] Lacosamide [Vimpat] 50 mg PO BID 11/01/17 11/01/17 History Latanoprost [Xalatan 0.005%] 1 drop LEFT EYE HS 11/01/17 11/01/17 History Allergies Allergy/AdvReac Type Severity Reaction Status Date / Time latanoprost Allergy Swelling Verified 11/01/17 07:28 Quinolones Allergy Rash/Hives Verified 11/01/17 07:28 Physical Exam Vitals: Vital Signs Temp Pulse Pulse Resp BP BP Pulse Ox 11/01/17 11:16 76 16 11/01/17 11:06 74 16 97 11/01/17 10:21 98.2 F 96 16 124/59 96 11/01/17 09:59 98.2 F 79 16 132/63 93 L 11/01/17 09:24 98.9 F 79 18 120/58 92 L 11/01/17 07:49 75 11/01/17 07:40 76 11/01/17 07:27 70 11/01/17 07:15 72 11/01/17 07:03 78 22 135/61 94 L 11/01/17 05:40 26 H 11/01/17 05:29 97.4 F L 76 32 H 164/78 98 Intake and Output 10/31/17 11/01/17 11/01/17 22:59 06:59 14:59 Other: Weight 45.359 kg 45.359 kg GENERAL: This is a 61-year-old female in no apparent distress at the time of examination, lethargic but arousable to verbal stimulation HEENT: Head is atraumatic, normocephalic. Pupils are equal, round, and reactive to light. Sclerae anicteric. Conjunctivae are clear. Mucus membranes of the mouth are moist. Neck is supple. RESPIRATORY: Clear to ausculation, diminished. No wheezes, rales, or rhonchi. No use of accessory muscles. Patient maintaining oxygen saturation greater than 92% on 2L. No chest wall tenderness is noted on palpation or with deep breathing. CARDIOVASCULAR: Regular rate and rhythm. S1 and S2 noted. No systolic or diastolic murmur auscultated. No JVD noted. No S3 or S4 noted. GASTROINTESTINAL: No distention noted. Abdomen soft and round. Normal active bowel sounds auscultated x 4 quadrants. No pain or tenderness noted upon palpation. INTEGUMENTARY: No cyanosis. No jaundice. No rashes noted. No cellulitis noted. EXTREMITIES: 2+ peripheral pulses. Trace bilateral lower extremity edema. No calf tenderness noted. NEUROLOGIC: Cranial nerves II-XII intact. PSYCHIATRIC: Oriented X 3, lethargic but arousable to verbal stimuli Results CBC & Chem 7: 11/01/17 05:42 11/01/17 05:42 Labs: Abnormal Lab Results - Last 24 Hours (Table) 11/01/17 11/01/17 11/01/17 Range/Units 05:42 05:42 05:42 WBC 10.7 H (3.8-10.6) k/uL Hgb 9.7 L (11.4-16.0) gm/dL Hct 31.7 L (34.0-46.0) % MCV 71.5 L (80.0-100.0) fL MCH 21.9 L (25.0-35.0) pg MCHC 30.7 L (31.0-37.0) g/dL RDW 17.5 H (11.5-15.5) % Plt Count 492 H (150-450) k/uL Monocytes # 1.3 H (0-1.0) k/uL Sodium 132 L (137-145) mmol/L Chloride 87 L (98-107) mmol/L Carbon Dioxide 35 H (22-30) mmol/L BUN 23 H (7-17) mg/dL Glucose 116 H (74-99) mg/dL AST 71 H (14-36) U/L ALT 64 H (9-52) U/L Total Creatine Kinase 146 H (30-135) U/L CK-MB (CK-2) 6.2 H* (0.0-2.4) ng/mL Total Protein 6.1 L (6.3-8.2) g/dL Thrombosis Risk Factor Assmnt - Choose All That Apply Any of the Below Risk Factors Present?: Yes Each Factor Represents 1 point: Acute [place] Other Risk Factors: Yes Each Risk Factor Represents 2 Points: Age 61-74 years Other congenital or acquired thrombophilia - If yes, enter type in comment: No Thrombosis Risk Factor Assessment Total Risk Factor Score: 3 Thrombosis Risk Factor Assessment Level: Moderate Risk Assessment and Plan Plan: ASSESSMENT: Acute exacerbation of chronic obstructive pulmonary disease Acute on chronic hypoxic respiratory failure, secondary to above Chronic hypercapnic respiratory failure secondary to advanced oxygen-dependent, steroid-dependent COPD Chronic diastolic congestive heart failure, EF 50-55%, no evidence of acute exacerbation Coronary artery disease with previous myocardial infarction History of CABB x 4 with mitral and tricuspid valve repair in November 2016 Mild pulmonary hypertension Hyperlipidemia Hypertension Chronically mildly elevated LFT's Generalized anxiety disorder Nicotine dependence, patient is a current cigarette smoker Microcytic, hypochromic anemia, chronic, type unknown Depression, unspecified PLAN: Pulmonary on consult. Appreciate recommendations and input Continue IV steroids, neubulizer treatments, and zithromax Discontinue Ativan Allow ativan to wear off. If patients lethargy does not improve by 1700 or lethargy worsens, give Romazicon 0.2mg Q10 minutes ( x 5 doses if needed) Do not adminster any sedating medications (xanax, norco, etc) to patient at this time until she is more awake and alert, conversing with staff, and does not require verbal stimulation to stay awake Home meds as appropriate Monitor labs Encourage smoking cessation GI prophylaxis: Pepcid 20mg PO Daily DVT prophylaxis: SCDs to bilateral lower extremities Monitor vital signs and address as appropriate Discharge planning: Patient to return home when stable Further recommendations pending patient's course Nurse practitioner note has been reviewed by physician. Signing provider agrees with the documented findings, assessment, and plan of care.
[2017-11-01] MEDS ORDERED: FLUMAZENIL 0.1 MG/ML 5 ML VIAL IVP PRN (15:01)
[2017-11-01] MEDS: ATORVASTATIN 80 MG TAB PO SCH (20:54)
[2017-11-01] MEDS: QUEtiapine 50 MG TAB PO SCH (20:55)
[2017-11-02] MEDS: IPRATROPIUM-ALBUTEROL 3 ML NEB INHALATION SCH ×4 (07:21→19:22)
[2017-11-02] MEDS: methylPREDNISolone SOD SUCCI 125 MG/2 ML VIAL IV SCH (07:25)
[2017-11-02] MEDS: CLOPIDOGREL 75 MG TAB PO SCH (07:26)
[2017-11-02] MEDS: buPROPion XL 150 MG TAB.ER.24H PO SCH (07:26)
[2017-11-02] MEDS: PROPRANOLOL 40 MG TAB PO SCH ×2 (07:26→21:19)
[2017-11-02] MEDS: OXYBUTYNIN XL 5 MG TAB.ER.24 PO SCH (07:26)
[2017-11-02] MEDS: FUROSEMIDE 20 MG TAB PO SCH ×2 (07:26→17:27)
[2017-11-02] MEDS: CYANOCOBALAMIN 500 MCG TAB PO SCH (07:27)
[2017-11-02] MEDS: FLUDROCORTISONE 0.1 MG TAB PO SCH (07:27)
[2017-11-02] MEDS: PRIMIDONE 50 MG TAB PO SCH ×3 (07:28→21:19)
[2017-11-02] MEDS: METOPROLOL SUCCINATE (ER) 50 MG TAB.ER.24H PO SCH (07:28)
[2017-11-02] MEDS: SPIRONOLACTONE 25 MG TAB PO SCH (07:28)
[2017-11-02] MEDS: FAMOTIDINE 20 MG TAB PO SCH (07:29)
[2017-11-02] MEDS: PARoxetine 20 MG TAB PO SCH (07:29)
[2017-11-02] MEDS: ASPIRIN 81 MG PO SCH (07:29)
[2017-11-02] MEDS: VITAMIN E (DL,TOCOPHERYL ACET) 400 UNIT CAP PO SCH (07:29)
[2017-11-02] MEDS: GABAPENTIN 300 MG CAP PO SCH ×3 (07:29→21:19)
[2017-11-02] MEDS: AZITHROMYCIN 500 MG TAB PO SCH (07:34)
[2017-11-02] MEDS ORDERED: NON-FORMULARY DRUG (Tiotropium Bromide [Spiriva] 1 CAP) INHALATION SCH (08:00)
[2017-11-02 08:13] LABS: Anisocytosis Slight; Basophils % (A) 0 %; Eosinophils % (A) 0 %; HCT 28.5 % (34.0-46.0); HGB 8.3 gm/dL (11.4-16.0); Hypochromasia Marked; Lymphocytes # (A) 1.1 k/uL (1.0-4.8); Lymphocytes % (A) 9 %; MCHC 29.1 g/dL (31.0-37.0); MCV 72.1 fL (80.0-100.0); Mean Platelet Volume 6.3; Microcytosis Moderate; Monocytes # (A) 0.8 k/uL (0-1.0); Monocytes % (A) 6 %; Neutrophils # (A) 10.1 k/uL (1.3-7.7); Neutrophils % (A) 82 %; Platelet Count 459 k/uL (150-450); Poikilocytosis Slight; RBC 3.96 m/uL (3.80-5.40); RDW 17.1 % (11.5-15.5); WBC 12.2 k/uL (3.8-10.6)
[2017-11-02 08:17] LABS: Anion Gap 7 mmol/L; Blood Urea Nitrogen 21 mg/dL (7-17); Calcium 8.1 mg/dL (8.4-10.2); Carbon Dioxide 33 mmol/L (22-30); Chloride 96 mmol/L (98-107); Glucose 116 mg/dL (74-99); Potassium 4.1 mmol/L (3.5-5.1); Sodium 136 mmol/L (137-145)
--- NOTE | 2017-11-02 10:37 | P.PN ---
Subjective Progress Note Date: 11/02/17 61-year-old female who presented to the emergency room with a chief complaint of shortness of breath that started suddenly. Patient has a history of severe COPD and is admitted frequently to the hospital. The patient was in respiratory distress in the emergency room and was very anxious. She was given a dose of IV ativan for her anxiety. The patient is lethargic at the time of evaluation and is unable to give a detailed history. History is obtained from EMR and nursing. Patient is arousable to verbal stimuli but will only answer one or two words. The patient has a history of coronary artery disease, congestive heart failure, COPD, GERD, hyperlipidemia, myocardial infarction, and anxiety. The patient underwent 4 vessel CABG with mitral valve and tricuspid value surgery in November 2016. She is currently smoking cigarettes. Chest x-ray: Mild patchy opacity in the right lung base appears slightly worsened compared to prior exam and may represent atelectasis or mild pneumonia. Laboratory data: WBC 10.7. Hemoglobin 9.7. Platelet count 492. Sodium 132. Potassium 4.0. BUN 23. Creatinine 0.70. AST 71. ALT 64. Troponin: 0.018 The patient was admitted to the hospital under the care of Dr. Figueredo. She was started on IV steroids and neubulizer treatments. She received a dose of Rocephin in the emergency room. She was also started on Zithromax. Consultations were placed to pulmonary. 11/02/2017 Patient seen and examined at the bedside. Patient is awake and alert this morning. Patient is back to her baseline this morning. She denies shortness of breath. She is on 2L with oxygen saturations greater than 92%. She denies chest pain or pressure. Tolerating PO intake without nausea or vomiting. Vital signs are stable. Objective - Vital Signs Vital signs: Vital Signs Temp 97.9 F 11/02/17 06:16 Pulse 66 11/02/17 07:35 Resp 18 11/02/17 06:16 BP 113/57 11/02/17 06:16 Pulse Ox 96 11/02/17 07:21 Intake & Output 11/01/17 11/02/17 11/02/17 18:59 06:59 18:59 Weight 45.359 kg 54 kg Other: Voiding Method Toilet # Voids 2 # Bowel Movements 1 - Exam GENERAL: This is a 61-year-old female in no apparent distress at the time of examination. Pleasant and cooperative. HEENT: Head is atraumatic, normocephalic. Pupils are equal, round, and reactive to light. Sclerae anicteric. Conjunctivae are clear. Mucus membranes of the mouth are moist. Neck is supple. RESPIRATORY: Clear to ausculation, diminished. No wheezes, rales, or rhonchi. No use of accessory muscles. Patient maintaining oxygen saturation greater than 92% on 2L. No chest wall tenderness is noted on palpation or with deep breathing. CARDIOVASCULAR: Regular rate and rhythm. S1 and S2 noted. No systolic or diastolic murmur auscultated. No JVD noted. No S3 or S4 noted. GASTROINTESTINAL: No distention noted. Abdomen soft and round. Normal active bowel sounds auscultated x 4 quadrants. No pain or tenderness noted upon palpation. INTEGUMENTARY: No cyanosis. No jaundice. No rashes noted. No cellulitis noted. EXTREMITIES: 2+ peripheral pulses. No lower extremity edema. No calf tenderness noted. NEUROLOGIC: Cranial nerves II-XII intact. PSYCHIATRIC: Awake and alert. Oriented X 3. Appropriate affect. Intact judgment and insight. - Labs CBC & Chem 7: 11/02/17 07:17 11/02/17 07:17 Labs: Abnormal Lab Results - Last 24 Hours (Table) 11/02/17 11/02/17 Range/Units 07:17 07:17 WBC 12.2 H (3.8-10.6) k/uL Hgb 8.3 L (11.4-16.0) gm/dL Hct 28.5 L (34.0-46.0) % MCV 72.1 L (80.0-100.0) fL MCH 21.0 L (25.0-35.0) pg MCHC 29.1 L (31.0-37.0) g/dL RDW 17.1 H (11.5-15.5) % Plt Count 459 H (150-450) k/uL Neutrophils # 10.1 H (1.3-7.7) k/uL Sodium 136 L (137-145) mmol/L Chloride 96 L (98-107) mmol/L Carbon Dioxide 33 H (22-30) mmol/L BUN 21 H (7-17) mg/dL Glucose 116 H (74-99) mg/dL Calcium 8.1 L (8.4-10.2) mg/dL Assessment and Plan Plan: ASSESSMENT: Acute exacerbation of chronic obstructive pulmonary disease Acute on chronic hypoxic respiratory failure, secondary to above Chronic hypercapnic respiratory failure secondary to advanced oxygen-dependent, steroid-dependent COPD Chronic diastolic congestive heart failure, EF 50-55%, no evidence of acute exacerbation Coronary artery disease with previous myocardial infarction History of CABB x 4 with mitral and tricuspid valve repair in November 2016 Mild pulmonary hypertension Hyperlipidemia Hypertension Chronically mildly elevated LFT's Generalized anxiety disorder Nicotine dependence, patient is a current cigarette smoker Microcytic, hypochromic anemia, chronic, type unknown Depression, unspecified PLAN: Pulmonary on consult. Appreciate recommendations and input Decrease steroids to 40mg IV Q 8 hours Home meds as appropriate Monitor labs Encourage smoking cessation GI prophylaxis: Pepcid 20mg PO Daily DVT prophylaxis: SCDs to bilateral lower extremities Monitor vital signs and address as appropriate Discharge planning: Patient to return home when stable Further recommendations pending patient's course Possible discharge this afternoon or tomorrow Nurse practitioner note has been reviewed by physician. Signing provider agrees with the documented findings, assessment, and plan of care.
[2017-11-02] MEDS: ALPRAZolam 0.5 MG TAB PO PRN ×2 (11:21→21:43)
--- NOTE | 2017-11-02 12:31 | P.PN ---
Subjective Progress Note Date: 11/02/17 Principal diagnosis: Acute on chronic hypoxemic respiratory failure secondary to acute exacerbation of COPD and limited right lower lobe pneumonitis Kasandra is a 61-year-old white female patient of Dr. Figueredo, who is well-known to our service, and follows Dr. Cardoso for her history of severe end-stage COPD with an FEV1 of 34% of predicted, with chronic hypercapnic respiratory failure, resented to the [facility] emergency department via EMS today on 11/01/2017 for severe respiratory distress at home, with sudden onset. Most history was obtained from the chart, related to patient being lethargic during our evaluation, and was not able to provide a detailed history of her present illness. Per nursing, patient was given a dose of Ativan for her severe anxiety related to acute respiratory distress in the emergency department. In the emergency department patient was in significant respiratory distress, using accessory muscles of breathing, lung sounds were decreased, with significantly prolonged expiratory phase. She was hypoxemic with pulse ox in the 80s during initial evaluation. Chest x-ray was completed, and has been reviewed by Dr. Dr. Jiménez. It shows right lower lobe patchy density, possibly an area of atelectasis. Lab work showed WBC of 13.4, hgb 8.2, serum sodium 139, potassium is 4.2, chloride is 99, CO2 of 30, BUN of 14 and creatinine 0.46. Troponin was negative 1, CK-MB was elevated at 4.3. Patient denied any sick contacts, influenza screen was negative. Patient states she is still smoking. Other past medical history includes coronary artery disease, status post coronary artery bypass grafting, history of mitral and tricuspid valve repair in 2017, history of myocardial infarction, hypertension, hyperlipidemia, chronic diastolic congestive heart failure with preserved left ventricular systolic function with EF 50-55%, mild pulmonary hypertension, chronic anemia, history of right breast cancer status post lumpectomy and radiation, GERD/reflux, osteoporosis, peripheral arterial disease, anxiety and depression. Patient is on the maintenance prednisone dose at 10 mg by mouth daily, Symbicort, albuterol nebulized treatments for her history of COPD. Patient was started on empiric antibiotics in the form of azithromycin and Rocephin, she has been started on nebulized bronchodilators, oral Lasix, and IV steroids, and admitted for further management. On patient seen again in follow-up. She is awake alert, breathing easier today, [place] any distress, denies any chest pain or dyspnea. On 2 L per nasal cannula her pulse ox is 96%, respirations are even and nonlabored, lung sounds are diminished overall. No rhonchi or wheezes noted. No fever or chills. Patient states she is still smoking, and again smoking cessation was highly encouraged. She remains on empiric antibiotics in the form of Zithromax , she was given 1 dose of Rocephin in the emergency department. She is on IV steroids, nebulized bronchodilators, and clinically she reports improvement. Objective - Vital Signs Vital signs: Vital Signs Temp 97.9 F 11/02/17 06:16 Pulse 68 11/02/17 11:07 Resp 18 11/02/17 08:00 BP 113/57 11/02/17 06:16 Pulse Ox 96 11/02/17 07:21 Intake & Output 11/01/17 11/02/17 11/02/17 18:59 06:59 18:59 Weight 45.359 kg 54 kg 54 kg Other: Voiding Method Toilet Toilet # Voids 2 # Bowel Movements 1 - Exam GENERAL EXAM: 61-year-old White Female, comfortable in no apparent distress. HEAD: Normocephalic/atraumatic. EYES: Normal reaction of pupils, equal size. Conjunctiva pink, sclera white. NOSE: Clear with pink turbinates. THROAT: No erythema or exudates. NECK: No masses, no JVD, no thyroid enlargement, no adenopathy. CHEST: No chest wall deformity. Symmetrical expansion. LUNGS: Diminished breath sounds bilaterally, equal air entry with no crackles, wheeze, rhonchi or dullness. CVS: Regular rate and rhythm, normal S1 and S2, no gallops, no murmurs, no rubs ABDOMEN: Soft, nontender. No hepatosplenomegaly, normal bowel sounds, no guarding or rigidity. EXTREMITIES: No clubbing, no cyanosis, 2+ pulses and upper and lower extremities. 1+ pitting edema noted bilaterally MUSCULOSKELETAL: Muscle strength and tone normal. SPINE: No scoliosis or deformity SKIN: No rashes CENTRAL NERVOUS SYSTEM: Alert and oriented -3. No focal deficits, tone is normal in all 4 extremities. PSYCHIATRIC: Alert and oriented -3. Appropriate affect. Intact judgment and insight. - Labs CBC & Chem 7: 11/02/17 07:17 11/02/17 07:17 Labs: Abnormal Lab Results - Last 24 Hours (Table) 11/02/17 11/02/17 Range/Units 07:17 07:17 WBC 12.2 H (3.8-10.6) k/uL Hgb 8.3 L (11.4-16.0) gm/dL Hct 28.5 L (34.0-46.0) % MCV 72.1 L (80.0-100.0) fL MCH 21.0 L (25.0-35.0) pg MCHC 29.1 L (31.0-37.0) g/dL RDW 17.1 H (11.5-15.5) % Plt Count 459 H (150-450) k/uL Neutrophils # 10.1 H (1.3-7.7) k/uL Sodium 136 L (137-145) mmol/L Chloride 96 L (98-107) mmol/L Carbon Dioxide 33 H (22-30) mmol/L BUN 21 H (7-17) mg/dL Glucose 116 H (74-99) mg/dL Calcium 8.1 L (8.4-10.2) mg/dL Assessment and Plan Plan: Assessment: #1. Acute on chronic hypoxemic respiratory failure secondary to acute exacerbation of COPD, and the chest x-ray was reviewed, and and there is a right lower lobe atelectasis versus minimal pneumonitis in the right lower lobe #2. Chronic hypercapnic respiratory failure secondary to advanced oxygen- dependent, steroid-dependent COPD, with an FEV1 of 34% of predicted #3. Coronary artery disease status post coronary artery bypass grafting #4. History of mitral and tricuspid valve repair in November 2016 #5. History of myocardial infarction, #6. History of peripheral arterial disease #7. Nicotine addiction, chronic and ongoing #8. Chronic diastolic congestive heart failure with ejection fraction between 50 and 55% #9. Mild pulmonary hypertension, with right ventricular systolic pressure of 45 mmHg #9. Chronic anemia, #10. History of right breast cancer, with lumpectomy followed by radiation #11. GERD/reflux #12. History of osteoporosis Plan: Continue current plan of treatment, we'll switch IV Zithromax to oral azithromycin. No fever or chills, patient is clinically improving. Continue IV steroids, continue nebulized bronchodilators. Smoking cessation was again strongly encouraged, and dyspneic further improvements, and possible discharge in the next 24 hours. I performed a history & physical examination of the patient and discussed their management with my nurse practitioner, Lia Armando. I reviewed the nurse practitioner's note and agree with the documented findings and plan of care. Lung sounds are diminished. The findings and the impression was discussed with the patient. I attest to the documentation by the nurse practitioner. Time with Patient: Less than 30
[2017-11-02] MEDS: HYDROcodone/APAP 10-325MG 1 EACH TAB PO PRN ×2 (13:16→19:32)
[2017-11-02] MEDS ORDERED: IPRATROPIUM-ALBUTEROL 3 ML NEB INHALATION SCH (15:19)
[2017-11-02] MEDS ORDERED: methylPREDNISolone SOD SUCCI 125 MG/2 ML VIAL IV SCH (16:00)
[2017-11-02] MEDS: methylPREDNISolone SOD SUCCI 40 MG/ML 1 ML VIAL IV SCH ×2 (17:29→23:13)
[2017-11-02] MEDS: BUDESONIDE 1 MG/2 ML NEBU INHALATION SCH (19:22)
[2017-11-02] MEDS: FORMOTEROL FUMARATE 20 MCG/2 ML NEBU INHALATION SCH (19:22)
[2017-11-02] MEDS: ATORVASTATIN 80 MG TAB PO SCH (21:19)
[2017-11-02] MEDS: QUEtiapine 50 MG TAB PO SCH (21:20)
[2017-11-03] MEDS: HYDROcodone/APAP 10-325MG 1 EACH TAB PO PRN ×2 (02:13→09:59)
[2017-11-03 06:07] VITALS: BP 112/62; RESP 16; TEMP 97.3
[2017-11-03] MEDS: FORMOTEROL FUMARATE 20 MCG/2 ML NEBU INHALATION SCH (06:59)
[2017-11-03] MEDS: IPRATROPIUM-ALBUTEROL 3 ML NEB INHALATION SCH ×3 (06:59→15:17)
[2017-11-03] MEDS: BUDESONIDE 1 MG/2 ML NEBU INHALATION SCH (06:59)
[2017-11-03 07:40] LABS: Anisocytosis Slight; Basophils % (A) 0 %; Eosinophils % (A) 0 %; HGB 9.2 gm/dL (11.4-16.0); Hypochromasia Marked; Lymphocytes # (A) 1.2 k/uL (1.0-4.8); Lymphocytes % (A) 8 %; MCH 21.7 pg (25.0-35.0); MCHC 29.7 g/dL (31.0-37.0); MCV 73.2 fL (80.0-100.0); Mean Platelet Volume 6.4; Microcytosis Moderate; Monocytes % (A) 6 %; Neutrophils # (A) 12.8 k/uL (1.3-7.7); Neutrophils % (A) 84 %; Platelet Count 464 k/uL (150-450); Poikilocytosis Slight; RBC 4.23 m/uL (3.80-5.40); RDW 17.6 % (11.5-15.5); WBC 15.1 k/uL (3.8-10.6)
[2017-11-03] MEDS: methylPREDNISolone SOD SUCCI 40 MG/ML 1 ML VIAL IV SCH (07:46)
[2017-11-03] MEDS: VITAMIN E (DL,TOCOPHERYL ACET) 400 UNIT CAP PO SCH (07:47)
[2017-11-03] MEDS: PROPRANOLOL 40 MG TAB PO SCH (07:47)
[2017-11-03] MEDS: CYANOCOBALAMIN 500 MCG TAB PO SCH (07:47)
[2017-11-03] MEDS: FUROSEMIDE 20 MG TAB PO SCH (07:47)
[2017-11-03] MEDS: PARoxetine 20 MG TAB PO SCH (07:47)
[2017-11-03] MEDS: OXYBUTYNIN XL 5 MG TAB.ER.24 PO SCH (07:47)
[2017-11-03] MEDS: PRIMIDONE 50 MG TAB PO SCH (07:47)
[2017-11-03] MEDS: buPROPion XL 150 MG TAB.ER.24H PO SCH (07:48)
[2017-11-03] MEDS: FAMOTIDINE 20 MG TAB PO SCH (07:48)
[2017-11-03] MEDS: GABAPENTIN 300 MG CAP PO SCH (07:48)
[2017-11-03] MEDS: FLUDROCORTISONE 0.1 MG TAB PO SCH (07:48)
[2017-11-03] MEDS: SPIRONOLACTONE 25 MG TAB PO SCH (07:48)
[2017-11-03] MEDS: ALPRAZolam 0.5 MG TAB PO PRN (07:48)
[2017-11-03] MEDS: AZITHROMYCIN 500 MG TAB PO SCH (07:49)
[2017-11-03] MEDS: ASPIRIN 81 MG PO SCH (07:49)
[2017-11-03] MEDS: METOPROLOL SUCCINATE (ER) 50 MG TAB.ER.24H PO SCH (07:49)
[2017-11-03] MEDS: CLOPIDOGREL 75 MG TAB PO SCH (07:49)
[2017-11-03 08:01] LABS: Anion Gap 8 mmol/L; Blood Urea Nitrogen 22 mg/dL (7-17); Calcium 8.6 mg/dL (8.4-10.2); Carbon Dioxide 34 mmol/L (22-30); Chloride 94 mmol/L (98-107); Glucose 106 mg/dL (74-99); Potassium 3.9 mmol/L (3.5-5.1); Sodium 136 mmol/L (137-145)
[2017-11-03 11:07] VITALS: BMI 22.8
--- NOTE | 2017-11-03 13:11 | P.PN ---
Subjective Progress Note Date: 11/03/17 Principal diagnosis: Acute on chronic hypoxemic respiratory failure secondary to acute exacerbation of COPD and limited right lower lobe pneumonitis Kasandra is a 61-year-old white female patient of Dr. Figueredo, who is well-known to our service, and follows Dr. Cardoso for her history of severe end-stage COPD with an FEV1 of 34% of predicted, with chronic hypercapnic respiratory failure, resented to the [facility] emergency department via EMS today on 11/01/2017 for severe respiratory distress at home, with sudden onset. Most history was obtained from the chart, related to patient being lethargic during our evaluation, and was not able to provide a detailed history of her present illness. Per nursing, patient was given a dose of Ativan for her severe anxiety related to acute respiratory distress in the emergency department. In the emergency department patient was in significant respiratory distress, using accessory muscles of breathing, lung sounds were decreased, with significantly prolonged expiratory phase. She was hypoxemic with pulse ox in the 80s during initial evaluation. Chest x-ray was completed, and has been reviewed by Dr. Dr. Jiménez. It shows right lower lobe patchy density, possibly an area of atelectasis. Lab work showed WBC of 13.4, hgb 8.2, serum sodium 139, potassium is 4.2, chloride is 99, CO2 of 30, BUN of 14 and creatinine 0.46. Troponin was negative 1, CK-MB was elevated at 4.3. Patient denied any sick contacts, influenza screen was negative. Patient states she is still smoking. Other past medical history includes coronary artery disease, status post coronary artery bypass grafting, history of mitral and tricuspid valve repair in 2017, history of myocardial infarction, hypertension, hyperlipidemia, chronic diastolic congestive heart failure with preserved left ventricular systolic function with EF 50-55%, mild pulmonary hypertension, chronic anemia, history of right breast cancer status post lumpectomy and radiation, GERD/reflux, osteoporosis, peripheral arterial disease, anxiety and depression. Patient is on the maintenance prednisone dose at 10 mg by mouth daily, Symbicort, albuterol nebulized treatments for her history of COPD. Patient was started on empiric antibiotics in the form of azithromycin and Rocephin, she has been started on nebulized bronchodilators, oral Lasix, and IV steroids, and admitted for further management. On 11/02/2017 patient seen again in follow-up. She is awake alert, breathing easier today, [place] any distress, denies any chest pain or dyspnea. On 2 L per nasal cannula her pulse ox is 96%, respirations are even and nonlabored, lung sounds are diminished overall. No rhonchi or wheezes noted. No fever or chills. Patient states she is still smoking, and again smoking cessation was highly encouraged. She remains on empiric antibiotics in the form of Zithromax , she was given 1 dose of Rocephin in the emergency department. She is on IV steroids, nebulized bronchodilators, and clinically she reports improvement. On 11/03/2017 patient seen in follow-up on medical surgical floor. Breathing much easier today, she seems to be back to her baseline, she is on 2 L per nasal cannula with O2 sat 98%, she is afebrile, lung sounds are diminished, with a few scattered rhonchi. Labs were reviewed and showed a CBC of 15.1, hemoglobin 9.2, sodium is 136, potassium 3.9, chloride is 94, carbon dioxide is 34, B1 is 22 and creatinine 0.69. Clinically patient is improving, however in view of her poor lung function, and frequent readmissions a blood gas was obtained, and an effort to qualify the patient for home BiPAP diagnosis of advanced COPD with chronic hypercapnic and hypoxemic respiratory failure. Blood gas showed pH of 7.41, pCO2 of 50.3, pO2 52, this was done on FiO2 of 21% . We'll check with process planner this blood gas will qualify the patient for BiPAP or Trilogy vent. Objective - Vital Signs Vital signs: Vital Signs Temp 97.3 F L 11/03/17 05:30 Pulse 72 11/03/17 11:04 Resp 16 11/03/17 05:30 BP 112/62 11/03/17 05:30 Pulse Ox 98 11/03/17 06:59 Intake & Output 11/02/17 11/03/17 11/03/17 18:59 06:59 18:59 Intake Total 700 1290 Balance 700 1290 Weight 54 kg 56.5 kg 56.5 kg Intake: Oral 700 1290 Other: Voiding Method Toilet Toilet Toilet # Voids 2 2 # Bowel Movements 1 - Exam GENERAL EXAM: 61-year-old White Female, comfortable in no apparent distress. HEAD: Normocephalic/atraumatic. EYES: Normal reaction of pupils, equal size. Conjunctiva pink, sclera white. NOSE: Clear with pink turbinates. THROAT: No erythema or exudates. NECK: No masses, no JVD, no thyroid enlargement, no adenopathy. CHEST: No chest wall deformity. Symmetrical expansion. LUNGS: Diminished breath sounds bilaterally, equal air entry with no crackles, wheeze. A few scattered rhonchi CVS: Regular rate and rhythm, normal S1 and S2, no gallops, no murmurs, no rubs ABDOMEN: Soft, nontender. No hepatosplenomegaly, normal bowel sounds, no guarding or rigidity. EXTREMITIES: No clubbing, no cyanosis, 2+ pulses and upper and lower extremities. 1+ pitting edema noted bilaterally MUSCULOSKELETAL: Muscle strength and tone normal. SPINE: No scoliosis or deformity SKIN: No rashes CENTRAL NERVOUS SYSTEM: Alert and oriented -3. No focal deficits, tone is normal in all 4 extremities. PSYCHIATRIC: Alert and oriented -3. Appropriate affect. Intact judgment and insight. - Labs CBC & Chem 7: 11/03/17 07:22 11/03/17 07:22 Labs: Abnormal Lab Results - Last 24 Hours (Table) 11/03/17 11/03/17 Range/Units 07:22 07:22 WBC 15.1 H (3.8-10.6) k/uL Hgb 9.2 L (11.4-16.0) gm/dL Hct 31.0 L (34.0-46.0) % MCV 73.2 L (80.0-100.0) fL MCH 21.7 L (25.0-35.0) pg MCHC 29.7 L (31.0-37.0) g/dL RDW 17.6 H (11.5-15.5) % Plt Count 464 H (150-450) k/uL Neutrophils # 12.8 H (1.3-7.7) k/uL Sodium 136 L (137-145) mmol/L Chloride 94 L (98-107) mmol/L Carbon Dioxide 34 H (22-30) mmol/L BUN 22 H (7-17) mg/dL Glucose 106 H (74-99) mg/dL Assessment and Plan Plan: Assessment: #1. Acute on chronic hypoxemic respiratory failure secondary to acute exacerbation of COPD, and the chest x-ray was reviewed, and and there is a right lower lobe atelectasis versus minimal pneumonitis in the right lower lobe #2. Chronic hypercapnic respiratory failure secondary to advanced oxygen- dependent, steroid-dependent COPD, with an FEV1 of 34% of predicted #3. Coronary artery disease status post coronary artery bypass grafting #4. History of mitral and tricuspid valve repair in November 2016 #5. History of myocardial infarction, #6. History of peripheral arterial disease #7. Nicotine addiction, chronic and ongoing #8. Chronic diastolic congestive heart failure with ejection fraction between 50 and 55% #9. Mild pulmonary hypertension, with right ventricular systolic pressure of 45 mmHg #9. Chronic anemia, #10. History of right breast cancer, with lumpectomy followed by radiation #11. GERD/reflux #12. History of osteoporosis Plan: Patient continues to improve, no fever no chills, no worsening dyspnea. Patient has been treated with Rocephin and Zithromax, nebulized bronchodilators , and nebulized bronchodilators, improved. We'll check with discharge planning regarding home BiPAP or Trilogy vent for diagnosis of advanced COPD with chronic hypercapnic and hypoxemic respiratory failure. Otherwise patient is stable for discharge home today on an outpatient course of Zithromax, her maintenance inhalers and nebulized treatments, and prednisone taper. Follow-up with Dr. Cardoso in the office in 7 days. I performed a history & physical examination of the patient and discussed their management with my nurse practitioner, Lia Armando. I reviewed the nurse practitioner's note and agree with the documented findings and plan of care. Lung sounds are diminished. The findings and the impression was discussed with the patient. I attest to the documentation by the nurse practitioner. Time with Patient: Less than 30
--- NOTE | 2017-11-03 13:28 | P.DS ---
Providers Date of admission: 11/01/17 08:46 Expected date of discharge: 11/03/17 Attending physician: Duarte Figueredo Consults: 11/01/17 08:36 Consult Physician Stat Consulting Provider: Jessica Cardoso Consult Reason/Comments: Acute exacerbation of COPD, pneumonia, hypoxia Do you want consulting provider notified?: Yes Primary care physician: [facility] Course: 61-year-old female who presented to the emergency room with a chief complaint of shortness of breath that started suddenly. Patient has a history of severe COPD and is admitted frequently to the hospital. The patient was in respiratory distress in the emergency room and was very anxious. She was given a dose of IV ativan for her anxiety. The patient is lethargic at the time of evaluation and is unable to give a detailed history. History is obtained from EMR and nursing. Patient is arousable to verbal stimuli but will only answer one or two words. The patient has a history of coronary artery disease, congestive heart failure, COPD, GERD, hyperlipidemia, myocardial infarction, and anxiety. The patient underwent 4 vessel CABG with mitral valve and tricuspid value surgery in November 2016. She is currently smoking cigarettes. Chest x-ray: Mild patchy opacity in the right lung base appears slightly worsened compared to prior exam and may represent atelectasis or mild pneumonia. Laboratory data: WBC 10.7. Hemoglobin 9.7. Platelet count 492. Sodium 132. Potassium 4.0. BUN 23. Creatinine 0.70. AST 71. ALT 64. Troponin: 0.018 The patient was admitted to the hospital under the care of Dr. Figueredo. She was started on IV steroids and neubulizer treatments. She received a dose of Rocephin in the emergency room. She was also started on Zithromax. Consultations were placed to pulmonary. The patient has improved and her respiratory status is back to her baseline. She denies shortness of breath. She is hemodynamically stable and has been cleared for discharge. She is to follow up on outpatient basis. Case discussed with Lia pulmonary [employer] SUPER[employer], who is trying to obtain Bipap machine for patient at home based on her advanced COPD. If patient is unable to obtain bipap during hospital admission, she will be set up for a sleep study. DISCHARGE DIAGNOSIS: Acute exacerbation of chronic obstructive pulmonary disease Acute on chronic hypoxic respiratory failure, secondary to above Chronic hypercapnic respiratory failure secondary to advanced oxygen-dependent, steroid-dependent COPD Chronic diastolic congestive heart failure, EF 50-55%, no evidence of acute exacerbation Coronary artery disease with previous myocardial infarction History of CABB x 4 with mitral and tricuspid valve repair in November 2016 Mild pulmonary hypertension Hyperlipidemia Hypertension Chronically mildly elevated LFT's Generalized anxiety disorder Nicotine dependence, patient is a current cigarette smoker Microcytic, hypochromic anemia, chronic, type unknown Depression, unspecified Nurse practitioner note has been reviewed by physician. Signing provider agrees with the documented findings, assessment, and plan of care. Patient Condition at Discharge: Fair Plan - Discharge Summary New Discharge Prescriptions: New Azithromycin [Zithromax] 500 mg PO DAILY #7 tab predniSONE See Taper PO DIRECTED #30 tab Continue Hydrocodone/Acetaminophen [Hydrocodone/Acetaminophen 10-325] 1 tab PO TID PRN PRN Reason: Pain Atorvastatin [Lipitor] 80 mg PO HS #30 tab Nitroglycerin Sl Tabs [Nitrostat] 0.4 mg SUBLINGUAL Q5M PRN #25 tab PRN Reason: Chest Pain Aspirin 81 mg PO DAILY Clopidogrel [Plavix] 75 mg PO DAILY #30 tab Albuterol Nebulized [Ventolin Nebulized] 2.5 mg INHALATION RT-QID Metoprolol Succinate (ER) [Toprol XL] 50 mg PO DAILY PARoxetine HCL [Paxil] 60 mg PO DAILY Oxybutynin Xl [Ditropan XL] 5 mg PO DAILY Zolpidem [Ambien] 5 mg PO HS PRN PRN Reason: Insomnia Fludrocortisone [Florinef] 0.1 mg PO DAILY Propranolol [Inderal] 40 mg PO BID Primidone [Mysoline] 50 mg PO TID buPROPion HCL [Wellbutrin XL] 150 mg PO DAILY Cyanocobalamin (Vitamin B-12) [Vitamin B-12] 4,000 mcg PO DAILY Tiotropium [place] [Spiriva] 1 cap INHALATION RT-DAILY Spironolactone [Aldactone] 12.5 mg PO DAILY Famotidine [Pepcid] 20 mg PO DAILY Vitamin E (Dl,Tocopheryl Acet) [Vitamin E] 400 unit PO DAILY Gabapentin [Neurontin] 300 mg PO TID predniSONE 10 mg PO DAILY #30 tab rOPINIRole HCL [Requip] 1 mg PO HS QUEtiapine [SEROquel] 50 mg PO HS Furosemide [Lasix] 20 mg PO BID Albuterol Sulfate [Proair Hfa] 1 - 2 puff INHALATION RT-Q6H PRN PRN Reason: Shortness Of Breath Latanoprost [Xalatan 0.005%] 1 drop LEFT EYE HS ALPRAZolam [Xanax] 0.25 mg PO TID PRN PRN Reason: Anxiety Lacosamide [Vimpat] 50 mg PO BID Budesonide/Formoterol Fumarate [Symbicort 160-4.5 Mcg Inhaler] 2 puff INHALATION RT-BID Discharge Medication List Hydrocodone/Acetaminophen [Hydrocodone/Acetaminophen 10-325] 1 tab PO TID PRN [History] Atorvastatin [Lipitor] 80 mg PO HS #30 tab 07/18/14 [Rx] Nitroglycerin Sl Tabs [Nitrostat] 0.4 mg SUBLINGUAL Q5M PRN #25 tab 07/18/14 [Rx ] Aspirin 81 mg PO DAILY 09/17/15 [History] Clopidogrel [Plavix] 75 mg PO DAILY #30 tab 08/06/16 [Rx] Albuterol Nebulized [Ventolin Nebulized] 2.5 mg INHALATION RT-QID 12/04/16 [ History] Metoprolol Succinate (ER) [Toprol XL] 50 mg PO DAILY 02/11/17 [History] PARoxetine HCL [Paxil] 60 mg PO DAILY 03/26/17 [History] Fludrocortisone [Florinef] 0.1 mg PO DAILY 08/29/17 [History] Oxybutynin Xl [Ditropan XL] 5 mg PO DAILY 08/29/17 [History] Primidone [Mysoline] 50 mg PO TID 08/29/17 [History] Propranolol [Inderal] 40 mg PO BID 08/29/17 [History] Zolpidem [Ambien] 5 mg PO HS PRN 08/29/17 [History] Cyanocobalamin (Vitamin B-12) [Vitamin B-12] 4,000 mcg PO DAILY 09/16/17 [ History] Famotidine [Pepcid] 20 mg PO DAILY 09/16/17 [History] Spironolactone [Aldactone] 12.5 mg PO DAILY 09/16/17 [History] Tiotropium [place] [Spiriva] 1 cap INHALATION RT-DAILY 09/16/17 [History] buPROPion HCL [Wellbutrin XL] 150 mg PO DAILY 09/16/17 [History] Gabapentin [Neurontin] 300 mg PO TID 09/19/17 [History] Vitamin E (Dl,Tocopheryl Acet) [Vitamin E] 400 unit PO DAILY 09/19/17 [History] predniSONE 10 mg PO DAILY #30 tab 09/21/17 [Rx] Albuterol Sulfate [Proair Hfa] 1 - 2 puff INHALATION RT-Q6H PRN 10/21/17 [ History] Furosemide [Lasix] 20 mg PO BID 10/21/17 [History] QUEtiapine [SEROquel] 50 mg PO HS 10/21/17 [History] rOPINIRole HCL [Requip] 1 mg PO HS 10/21/17 [History] ALPRAZolam [Xanax] 0.25 mg PO TID PRN 11/01/17 [History] Budesonide/Formoterol Fumarate [Symbicort 160-4.5 Mcg Inhaler] 2 puff INHALATION RT-BID 11/01/17 [History] Lacosamide [Vimpat] 50 mg PO BID 11/01/17 [History] Latanoprost [Xalatan 0.005%] 1 drop LEFT EYE HS 11/01/17 [History] Azithromycin [Zithromax] 500 mg PO DAILY #7 tab 11/03/17 [Rx] predniSONE See Taper PO DIRECTED #30 tab 11/03/17 [Rx] Follow up Appointment(s)/Referral(s): Jessica Cardoso MD [STAFF PHYSICIAN] - 1 Week Duarte Figueredo Jr, DO [Primary Care Provider] - 1 Week Patient Instructions/Handouts: Heart Failure (DC), Pneumonitis (DC), COPD ( Chronic Obstructive Pulmonary Disease) (DC) Activity/Diet/Wound Care/Special Instructions: After you complete your prednisone taper, continue with your normal dose of prednisone 10mg daily Discharge Disposition: HOME SELF-CARE
[2017-11-03 15:31] VITALS: PULSE 74
== END 2017-11-03 15:40 | disposition home or self-care (01) | DRG 189 ==
LOC: EC 05:28 → 5MS5E 08:46
PROVIDERS: ADMIT Family Medicine; ATTEND Family Medicine
DX: J96.21 Acute and chronic respiratory failure with hypoxia (principal); I50.32 Chronic diastolic (congestive) heart failure; J44.1 Chronic obstructive pulmonary disease with (acute) exacerbation; J98.11 Atelectasis; J96.12 Chronic respiratory failure with hypercapnia; F17.210 Nicotine dependence, cigarettes, uncomplicated; D50.9 Iron deficiency anemia, unspecified; E78.5 Hyperlipidemia, unspecified; F32.9 Major depressive disorder, single episode, unspecified; F41.1 Generalized anxiety disorder; H40.9 Unspecified glaucoma; I11.0 Hypertensive heart disease with heart failure; I25.10 Atherosclerotic heart disease of native coronary artery without angina pectoris; I25.2 Old myocardial infarction; I27.20 Pulmonary hypertension, unspecified; I73.9 Peripheral vascular disease, unspecified; Z87.01 Personal history of pneumonia (recurrent); K21.9 Gastro-esophageal reflux disease without esophagitis; K90.0 Celiac disease; M81.0 Age-related osteoporosis without current pathological fracture; Z79.02 Long term (current) use of antithrombotics/antiplatelets; Z79.52 Long term (current) use of systemic steroids; Z79.51 Long term (current) use of inhaled steroids; Z79.82 Long term (current) use of aspirin; Z79.899 Other long term (current) drug therapy; Z82.49 Family history of ischemic heart disease and other diseases of the circulatory system; Z83.3 Family history of diabetes mellitus; Z85.3 Personal history of malignant neoplasm of breast; Z92.3 Personal history of irradiation; Z95.1 Presence of aortocoronary bypass graft; Z88.1 Allergy status to other antibiotic agents; Z88.8 Allergy status to other drugs, medicaments and biological substances; Z99.81 Dependence on supplemental oxygen; I25.5 Ischemic cardiomyopathy; Z95.828 Presence of other vascular implants and grafts; Z83.2 Family history of diseases of the blood and blood-forming organs and certain disorders involving the immune mechanism; R94.5 Abnormal results of liver function studies; M25.532 Pain in left wrist
CPT/HCPCS: 36415; 36600; 71046; 80048; 80053; 82550; 82553; 84484; 85025; 85610; 85730; 93005; 94640; 94644; 94760; 96374; 96375; 99285

== ENCOUNTER → 2017-11-23 | Outpatient (CLI) | payer OTHER ==
[2017-11-23 14:19] LABS: Albumin 4.3 g/dL (3.5-5.0); Calcium 9.3 mg/dL (8.4-10.2); Potassium 3.7 mmol/L (3.5-5.1); Total Bilirubin 0.5 mg/dL (0.2-1.3); Total Protein 6.8 g/dL (6.3-8.2)
== END | disposition home or self-care (01) ==
LOC: LABWHC1 13:28
PROVIDERS: ATTEND Internal Medicine Critical Care Medicine
DX: J44.9 Chronic obstructive pulmonary disease, unspecified (principal)
CPT/HCPCS: 36415; 80053

== ENCOUNTER 2017-12-08 15:54 | Emergency (ER) | payer OTHER ==
--- NOTE | 2017-12-08 16:15 | XR ---
EXAMINATION TYPE: XR chest 1V portable DATE OF EXAM: 12/08/2017 Comparison: 11/01/2017 Clinical History: 62-year-old female pain after TRAUMA Findings: Heart upper limits of normal in size. Aorta and pulmonary vasculature within normal limits. An annulo plasty ring with median sternotomy wires. Diffuse interstitial prominence is unchanged. Prominent ski nfold projecting at the right base. No consolidation, pneumothorax, or pleural effusion seen. Impression: Chronic changes, possible underlying COPD. No acute cardiopulmonary process.
--- NOTE | 2017-12-08 16:16 | XR ---
EXAMINATION TYPE: XR pelvis AP view DATE OF EXAM: 12/08/2017 COMPARISON: 07/23/2017 HISTORY: 61-year-old female with pain after trauma FINDINGS: Metallic zipper projects at the right pubic bone limiting assessment. The symphysis appears intact. B owel content and iliac vessel stents here much of the sacrum. Mild degenerative change at both hips. There is external rotation at the hips limiting visualization of the distal femoral neck regions. No displaced fractures are seen. IMPRESSION: Multiple exam limitations. No displaced fracture seen. A second assessment can be made on the patient 's trauma CT.
[2017-12-08] MEDS ORDERED: cefTRIAXone IN SWFI 2,000 MG/20 ML SYRINGE IVP STA (16:20)
[2017-12-08] MEDS ORDERED: DIPH,PERTUS(ACELL)TETVAC-LF 0.5 ML VIAL IM ONE (16:21)
[2017-12-08 16:24] LABS: Glucose,Whole Blood 132 mg/dL (75-99)
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
[2017-12-08] MEDS ORDERED: ETOMIDATE 2 MG/ML 10 ML VIAL IVP STA (16:43)
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
[2017-12-08] MEDS: LORazepam 2 MG/ML INJ IV PRN ×3 (16:55→17:37)
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
[2017-12-08 17:05] LABS: Anisocytosis Slight; Basophils % (A) 0 %; Eosinophils # (A) 0.1 k/uL (0-0.7); Eosinophils % (A) 1 %; HCT 23.7 % (34.0-46.0); Hypochromasia Marked; Lymphocytes # (A) 1.6 k/uL (1.0-4.8); Lymphocytes % (A) 20 %; MCH 20.7 pg (25.0-35.0); MCHC 29.5 g/dL (31.0-37.0); Microcytosis Marked; Monocytes # (A) 0.9 k/uL (0-1.0); Monocytes % (A) 12 %; Neutrophils # (A) 4.8 k/uL (1.3-7.7); Neutrophils % (A) 63 %; Platelet Count 543 k/uL (150-450); Poikilocytosis Slight; RBC 3.39 m/uL (3.80-5.40); RDW 17.4 % (11.5-15.5); WBC 7.7 k/uL (3.8-10.6)
[2017-12-08 17:12] LABS: Appearance,Urine Clear (Clear); Bilirubin,Urine Negative (Negative); Blood,Urine Negative (Negative); Color,Urine Light Yellow; Glucose,Urine (UA) Negative (Negative); Ketones,Urine Negative (Negative); Leukocyte Esterase,Urine Negative (Negative); Nitrite,Urine Negative (Negative); Protein,Urine Trace (Negative); Specific Gravity,Urine 1.041 (1.001-1.035); Urobilinogen,Urine <2.0 mg/dL (<2.0)
[2017-12-08 17:14] LABS: ALT 38 U/L (9-52); AST 48 U/L (14-36); Albumin 3.1 g/dL (3.5-5.0); Alcohol <10 mg/dL; Alkaline Phosphatase 50 U/L (38-126); Amylase 44 U/L (30-110); Anion Gap 9 mmol/L; Blood Urea Nitrogen 20 mg/dL (7-17); Carbon Dioxide 34 mmol/L (22-30); Chloride 83 mmol/L (98-107); Glucose 110 mg/dL (74-99); INR 1.1 (<1.2); Lipase 74 U/L (23-300); Partial Thromboplastin Time 25.6 sec (22.0-30.0); Potassium 3.8 mmol/L (3.5-5.1); Sodium 126 mmol/L (137-145); Total Bilirubin 0.2 mg/dL (0.2-1.3); Total Protein 5.2 g/dL (6.3-8.2)
[2017-12-08] MEDS ORDERED: PHENYTOIN SODIUM INJ 50 MG/ML 2 ML VIAL IVP STA (17:17)
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
[2017-12-08 17:22] LABS: Amphetamine Screen,Urine Not Detected (NotDetected); Barbiturate Screen,Urine Detected (NotDetected); Benzodiazepines Screen,Urine Not Detected (NotDetected); Cocaine Screen,Urine Not Detected (NotDetected); Methadone Screen, Urine Not Detected (NotDetected); Opiate Screen,Urine Detected (NotDetected); Oxycodone Screen, Urine Not Detected (NotDetected); Phencyclidine Screen,Urine Not Detected (NotDetected); Tricyclic Antidepressant,Urine Not Detected (NotDetected); Urn Cannabinoid Scrn Not Detected (NotDetected)
[2017-12-08] MEDS ORDERED: PHENYTOIN SODIUM INJ 1,000 MG in SODIUM CHLORIDE 0.9% 100 ML IVPB STA (17:22)
[2017-12-08 17:23] VITALS: TEMP 96.9
[2017-12-08 17:35] LABS: Troponin I 0.022 ng/mL (0.000-0.034)
[2017-12-08 17:41] LABS: Creatine Kinase MB 4.9 ng/mL (0.0-2.4)
[2017-12-08 17:41] LABS: ABG Base Excess 4.2 mmol/L; ABG HCO3 32 mmol/L (21-25); ABG Oxygen Saturation 99.9 % (94-97); ABG PH 7.25 (7.35-7.45); ABG PO2 182 mmHg (83-108); ABG TCO2 34 mmol/L (19-24)
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
[2017-12-08 17:52] LABS: ABG PCO2 73 mmHg (35-45)
[2017-12-08] MEDS ORDERED: SUCCINYLCHOLINE CHLORIDE VIAL 200 MG/10 ML VIAL IV STA (18:08)
[2017-12-08] MEDS ORDERED: fentaNYL (PF) 50 MCG/ML 2 ML AMP IVP STA (18:09)
[2017-12-08] MEDS ORDERED: PROPOFOL 1,000 MG in EMPTY BAG 1 BAG IV ONE (18:10)
[2017-12-08] MEDS ORDERED: GELATIN SPONGE,ABSORB (SMALL) 1 EACH SPONGE TOPICAL STA (18:17)
[2017-12-08 18:23] VITALS: BP 143/65; PULSE 85; RESP 18
[2017-12-09 12:31] LABS: Hepatitis C IgG Antibody Non-Reactive (Non-Reactive)
--- NOTE | 2017-12-12 06:52 | CDI ---
Documentation Clarification OP Dear Dr. Hernesto Russ Please provide lip laceration repair length. Thank you, Greg Santos Broadcast Designer If you have any questions, please contact Candy Attendant at [phone] [facility]
== END 2017-12-08 18:23 | disposition other institution (70) ==
LOC: EC 15:54
DX: S06.6X0A Traumatic subarachnoid hemorrhage without loss of consciousness, initial encounter (principal); S06.2X0A Diffuse traumatic brain injury without loss of consciousness, initial encounter; R56.9 Unspecified convulsions; S01.511A Laceration without foreign body of lip, initial encounter; S10.83XA Contusion of other specified part of neck, initial encounter; R40.2412 Glasgow coma scale score 13-15, at arrival to emergency department; I25.10 Atherosclerotic heart disease of native coronary artery without angina pectoris; I11.0 Hypertensive heart disease with heart failure; I50.9 Heart failure, unspecified; J44.9 Chronic obstructive pulmonary disease, unspecified; K21.9 Gastro-esophageal reflux disease without esophagitis; E78.5 Hyperlipidemia, unspecified; I25.2 Old myocardial infarction; I25.5 Ischemic cardiomyopathy; I27.20 Pulmonary hypertension, unspecified; F41.9 Anxiety disorder, unspecified; F32.9 Major depressive disorder, single episode, unspecified; F17.200 Nicotine dependence, unspecified, uncomplicated; Z85.3 Personal history of malignant neoplasm of breast; Z95.1 Presence of aortocoronary bypass graft; Z95.5 Presence of coronary angioplasty implant and graft; Z79.82 Long term (current) use of aspirin; Z79.52 Long term (current) use of systemic steroids; Z79.51 Long term (current) use of inhaled steroids; Z79.899 Other long term (current) drug therapy; Z88.1 Allergy status to other antibiotic agents; Z88.8 Allergy status to other drugs, medicaments and biological substances; Z23 Encounter for immunization; V59.40XA Driver of pick-up truck or van injured in collision with unspecified motor vehicles in traffic accident, initial encounter; Y92.410 Unspecified street and highway as the place of occurrence of the external cause
CPT/HCPCS: 99291 ×2; 31500 ×2; 12011 ×2; 96365 ×2; 96374 ×2; 96375 ×3; 90471 ×2; 36415; 36600; 94002; 93005; 86900; 86901; 80053; 82150; 82550; 82553; 82805; 83605; 83690; 84484; 85025; 85384; 85610; 85730; 86850; 86920; 81003; 80306; 80320; 72170; 71045; 72125; 70486; 70450; 71260; 74177; 90715; P9016; J0330; J2060; J1165; J0696; J3010; J2704; Q9967; 86701; 86704; 86803; 87340

== ENCOUNTER 2018-02-19 10:39 | Observation (INO) | payer OTHER ==
[2018-02-19] MEDS ORDERED: IPRATROPIUM-ALBUTEROL 3 ML NEB INHALATION STA (10:52)
[2018-02-19] MEDS ORDERED: methylPREDNISolone SOD SUCCI 125 MG/2 ML VIAL IV STA (10:52)
[2018-02-19] MEDS ORDERED: SODIUM CHLORIDE 0.9% 1,000 ML IV STA ×2 (10:52)
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
[2018-02-19 11:36] LABS: Anisocytosis Slight; Basophils % (A) 0 %; Eosinophils # (A) 0.4 k/uL (0-0.7); Eosinophils % (A) 5 %; HCT 33.7 % (34.0-46.0); HGB 9.7 gm/dL (11.4-16.0); Hypochromasia Marked; Lymphocytes # (A) 1.2 k/uL (1.0-4.8); Lymphocytes % (A) 14 %; MCH 23.8 pg (25.0-35.0); MCHC 28.9 g/dL (31.0-37.0); MCV 82.3 fL (80.0-100.0); Microcytosis Slight; Monocytes # (A) 0.9 k/uL (0-1.0); Monocytes % (A) 11 %; Neutrophils # (A) 5.4 k/uL (1.3-7.7); Neutrophils % (A) 67 %; Platelet Count 347 k/uL (150-450); RBC 4.09 m/uL (3.80-5.40); RDW 18.7 % (11.5-15.5); WBC 8.1 k/uL (3.8-10.6)
[2018-02-19 11:38] LABS: ALT 53 U/L (9-52); AST 46 U/L (14-36); Albumin 3.7 g/dL (3.5-5.0); Alkaline Phosphatase 55 U/L (38-126); Anion Gap 8 mmol/L; Blood Urea Nitrogen 34 mg/dL (7-17); Calcium 8.9 mg/dL (8.4-10.2); Carbon Dioxide 31 mmol/L (22-30); Chloride 101 mmol/L (98-107); Glucose 89 mg/dL (74-99); Potassium 4.6 mmol/L (3.5-5.1); Sodium 140 mmol/L (137-145); Total Bilirubin 0.2 mg/dL (0.2-1.3); Total Protein 6.6 g/dL (6.3-8.2)
[2018-02-19 11:46] LABS: Partial Thromboplastin Time 24.1 sec (22.0-30.0); Prothrombin Time 9.5 sec (9.0-12.0)
[2018-02-19 12:04] LABS: Creatine Kinase MB 4.8 ng/mL (0.0-2.4); Troponin I 0.022 ng/mL (0.000-0.034)
--- NOTE | 2018-02-19 12:15 | XR ---
EXAMINATION TYPE: XR chest 2V DATE OF EXAM: 02/19/2018 HISTORY: difficulty breathing. REFERENCE: Previous study dated 12/08/2017. FINDINGS: There has been a midline sternotomy. The heart is upper limits of normal in size. The lungs are overinflated. There are chronic interstiti al change. Overall aeration has improved. The patient is ET tube has been removed. IMPRESSION: 1. COPD. 2. IMPROVING INTERSTITIAL CHANGE. 3. BORDERLINE CARDIOMEGALY.
[2018-02-19] MEDS ORDERED: HYDROcodone/APAP 10-325MG 1 EACH TAB PO ONE (13:16)
[2018-02-19] MEDS ORDERED: ACETAMINOPHEN TAB 325 MG TAB PO PRN (13:46)
[2018-02-19] MEDS ORDERED: IBUPROFEN 400 MG TAB PO PRN (13:46)
[2018-02-19] MEDS ORDERED: ONDANSETRON 4 MG/2 ML VIAL IVP PRN (13:46)
[2018-02-19] MEDS ORDERED: NALOXONE 0.4 MG/ML 1 ML VIAL IV PRN (13:46)
[2018-02-19] MEDS ORDERED: Acetaminophen-Codeine 300-30mg TAB PO PRN (13:46)
[2018-02-19] MEDS ORDERED: NITROGLYCERIN SL TABS 0.4 MG TAB SUBLINGUAL PRN (14:18)
[2018-02-19] MEDS ORDERED: ALPRAZolam 0.25 MG TAB PO PRN (14:18)
[2018-02-19] MEDS: ALBUTEROL NEBULIZED 2.5 MG/3 ML INHALATION SCH ×2 (16:52→19:22)
[2018-02-19] MEDS: SODIUM CHLORIDE 0.9% 1,000 ML IV SCH (17:01)
[2018-02-19 17:12] LABS: Glucose,Whole Blood 142 mg/dL (75-99)
[2018-02-19] MEDS: methylPREDNISolone SOD SUCCI 125 MG/2 ML VIAL IV SCH ×2 (17:37→23:19)
[2018-02-19] MEDS: PRIMIDONE 50 MG TAB PO SCH ×2 (17:37→21:05)
[2018-02-19] MEDS: oxyCODONE-APAP 5-325MG 1 EACH TAB PO PRN ×2 (17:41→21:34)
[2018-02-19] MEDS: GABAPENTIN 400 MG CAP PO SCH ×2 (17:41→21:08)
[2018-02-19 17:55] LABS: Creatine Kinase MB 5.3 ng/mL (0.0-2.4); Troponin I 0.019 ng/mL (0.000-0.034)
[2018-02-19 18:07] VITALS: BMI 19.1
[2018-02-19] MEDS: ATORVASTATIN 80 MG TAB PO SCH (21:04)
[2018-02-19] MEDS: FUROSEMIDE 20 MG TAB PO SCH (21:04)
[2018-02-19] MEDS: LACOSAMIDE 50 MG TABLET PO SCH (21:08)
[2018-02-19] MEDS: IPRATROPIUM-ALBUTEROL 3 ML NEB INHALATION PRN (23:49)
[2018-02-20 00:22] LABS: Creatine Kinase MB 6.3 ng/mL (0.0-2.4)
[2018-02-20 00:38] LABS: Troponin I 0.013 ng/mL (0.000-0.034)
[2018-02-20] MEDS: SODIUM CHLORIDE 0.9% 1,000 ML IV SCH ×2 (05:57→16:41)
[2018-02-20] MEDS: methylPREDNISolone SOD SUCCI 125 MG/2 ML VIAL IV SCH (05:57)
[2018-02-20 06:41] LABS: Anisocytosis Slight; Basophils % (A) 0 %; Eosinophils % (A) 0 %; HCT 27.7 % (34.0-46.0); Hypochromasia Marked; Lymphocytes # (A) 0.6 k/uL (1.0-4.8); Lymphocytes % (A) 9 %; MCH 23.6 pg (25.0-35.0); MCHC 29.4 g/dL (31.0-37.0); MCV 80.3 fL (80.0-100.0); Mean Platelet Volume 7.2; Microcytosis Slight; Monocytes # (A) 0.2 k/uL (0-1.0); Monocytes % (A) 3 %; Neutrophils # (A) 5.9 k/uL (1.3-7.7); Neutrophils % (A) 87 %; Platelet Count 316 k/uL (150-450); RBC 3.44 m/uL (3.80-5.40); RDW 18.7 % (11.5-15.5); WBC 6.8 k/uL (3.8-10.6)
[2018-02-20 06:48] LABS: HGB 8.1 gm/dL (11.4-16.0)
[2018-02-20 06:57] LABS: Anion Gap 4 mmol/L; Blood Urea Nitrogen 22 mg/dL (7-17); Calcium 8.5 mg/dL (8.4-10.2); Carbon Dioxide 32 mmol/L (22-30); Chloride 103 mmol/L (98-107); Glucose 127 mg/dL (74-99); Potassium 4.4 mmol/L (3.5-5.1); Sodium 139 mmol/L (137-145)
[2018-02-20 07:15] LABS: Creatine Kinase MB 4.6 ng/mL (0.0-2.4); Troponin I 0.016 ng/mL (0.000-0.034)
[2018-02-20] MEDS: ALBUTEROL NEBULIZED 2.5 MG/3 ML INHALATION SCH ×4 (08:06→20:03)
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
[2018-02-20] MEDS: FUROSEMIDE 40 MG TAB PO SCH (09:42)
[2018-02-20] MEDS: METOPROLOL SUCCINATE (ER) 50 MG TAB.ER.24H PO SCH (09:42)
[2018-02-20] MEDS: PRIMIDONE 50 MG TAB PO SCH ×3 (09:42→21:31)
[2018-02-20] MEDS: SPIRONOLACTONE 25 MG TAB PO SCH (09:42)
[2018-02-20] MEDS: ASPIRIN 81 MG PO SCH (09:42)
[2018-02-20] MEDS: PANTOPRAZOLE 40 MG/10 ML VIAL IV SCH (09:43)
[2018-02-20] MEDS: oxyCODONE-APAP 5-325MG 1 EACH TAB PO PRN (10:48)
[2018-02-20] MEDS: GABAPENTIN 400 MG CAP PO SCH ×4 (10:48→21:34)
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
[2018-02-20 11:46] LABS: Glucose,Whole Blood 205 mg/dL (75-99)
[2018-02-20] MEDS: INSULIN ASPART 100 UNIT/ML 1 ML 10 ML VIAL SQ SCH ×3 (12:18→21:30)
[2018-02-20] MEDS: LACOSAMIDE 50 MG TABLET PO SCH ×2 (12:28→21:36)
--- NOTE | 2018-02-20 12:43 | ECHOF ---
Referral Reason:sob MEASUREMENTS -------- HEIGHT: 154.9 cm WEIGHT: 45.4 kg BP: 124/61 RVIDd: 3.1 cm (< 3.3) IVSd: 1.2 cm (0.6 - 1.1) LVIDd: 4.9 cm (3.9 - 5.3) LVPWd: 1.2 cm (0.6 - 1.1) IVSs: 1.3 cm LVIDs: 3.8 cm LVPWs: 1.3 cm LAESV Index (A-L): 43.76 ml/m Ao Diam: 2.6 cm (2.0 - 3.7) AV Cusp: 1.2 cm (1.5 - 2.6) LA Diam: 3.5 cm (2.7 - 3.8) EPSS: 1.2 cm MV E Ricki: 1.89 m/s MV DecT: 324 ms MV A Ricki: 1.61 m/s MV E/A Ratio: 1.17 RAP: 5.00 mmHg RVSP: 49.98 mmHg MV EF SLOPE: 27.73 mm/s (70 - 150) MV EXCURSION: 1.26 cm (> 18.000) FINDINGS -------- Sinus rhythm. This was a technically adequate study. No subcostals due to tube and bandages. The left ventricular size is normal. There is mild concentric left ventricular hypertrophy. Overa ll left ventricular systolic function is moderately impaired with, an EF between 35 - 40 %.there is e xtensive inferiorlateral wall hypokinesia noted. The right ventricle is mildly enlarged. LA is severely dilated >40 ml/m2 RA appears enlarged. Aortic valve is trileaflet and is mildly thickened. There is mild aortic regurgitation. There is no evidence of aortic stenosis. The mitral valve leaflets are moderately thickened. Bphu-ro-valjajmf mitral regurgitation is presen t. The peak and mean MV gradients are 14.00mmHg 6.81mmHg as measured by doppler. Mild mitral marvin nosis. Mitral ring annulloplasty is in place. Zlyp-gl-fzfdbshk tricuspid regurgitation present. There is mild pulmonary hypertension. The right ventricular systolic pressure, as measured by Doppler, is 49.98mmHg , The tricuspid valve has a peak /mean gradient measuring 5.47mmHg / 2.26mmHg. Patient has history of tricuspid valve repair. Trace/mild (physiologic) pulmonic regurgitation. The aortic root size is normal. IVC Not well visulized. There is no pericardial effusion. CONCLUSIONS -------- 1. Sinus rhythm. 2. This was a technically adequate study. 3. No subcostals due to tube and bandages. 4. The left ventricular size is normal. 5. There is mild concentric left ventricular hypertrophy. 6. The right ventricle is mildly enlarged. 7. LA is severely dilated >40 ml/m2 8. RA appears enlarged. 9. Aortic valve is trileaflet and is mildly thickened. 10. There is mild aortic regurgitation. 11. The mitral valve leaflets are moderately thickened. 12. Wjqw-og-xplhvvjc mitral regurgitation is present. 13. The peak and mean MV gradients are 14.00mmHg 6.81mmHg as measured by doppler. 14. Mild mitral stenosis. 15. Mitral ring annulloplasty is in place. 16. Jvfv-tn-ugkrsrzi tricuspid regurgitation present. 17. There is mild pulmonary hypertension. 18. The right ventricular systolic pressure, as measured by Doppler, is 49.98mmHg. 19. , The tricuspid valve has a peak/mean gradient measuring 5.47mmHg / 2.26mmHg. 20. Patient has history of tricuspid valve repair. 21. Trace/mild (physiologic) pulmonic regurgitation. 22. The aortic root size is normal. 23. IVC Not well visulized. 24. There is no pericardial effusion. ELECTRONIC PUBLISHER: Santos Lantigua [facility]
[2018-02-20] MEDS ORDERED: SIMETHICONE 80 MG CHEWABLE PO PRN (13:58)
[2018-02-20] MEDS ORDERED: SENNOSIDES 8.6 MG TAB PO PRN (13:58)
[2018-02-20] MEDS ORDERED: HYDROcodone/APAP 10-325MG 1 EACH TAB PO PRN (13:58)
[2018-02-20 16:25] LABS: Glucose,Whole Blood 150 mg/dL (75-99)
[2018-02-20] MEDS: methylPREDNISolone SOD SUCCI 40 MG/ML 1 ML VIAL IV SCH ×2 (16:38→23:24)
[2018-02-20 17:09] LABS: Hemoglobin A1C 5.9 % (4.0-6.0)
[2018-02-20] MEDS ORDERED: DONEPEZIL 5 MG TAB PO SCH (21:00)
[2018-02-20 21:26] LABS: Glucose,Whole Blood 197 mg/dL (75-99)
[2018-02-20] MEDS: ATORVASTATIN 80 MG TAB PO SCH (21:30)
[2018-02-20] MEDS: FUROSEMIDE 20 MG TAB PO SCH (21:31)
[2018-02-21 06:29] LABS: Glucose,Whole Blood 155 mg/dL (75-99)
[2018-02-21] MEDS: INSULIN ASPART 100 UNIT/ML 1 ML 10 ML VIAL SQ SCH ×2 (06:42→12:46)
[2018-02-21 07:09] LABS: Anisocytosis Slight; Basophils % (A) 0 %; Eosinophils % (A) 0 %; HCT 29.3 % (34.0-46.0); HGB 8.7 gm/dL (11.4-16.0); Hypochromasia Marked; Lymphocytes # (A) 0.6 k/uL (1.0-4.8); Lymphocytes % (A) 6 %; MCH 24.1 pg (25.0-35.0); MCHC 29.6 g/dL (31.0-37.0); MCV 81.5 fL (80.0-100.0); Mean Platelet Volume 7.3; Microcytosis Slight; Monocytes # (A) 0.5 k/uL (0-1.0); Monocytes % (A) 5 %; Neutrophils # (A) 9.3 k/uL (1.3-7.7); Neutrophils % (A) 88 %; Platelet Count 323 k/uL (150-450); RDW 18.7 % (11.5-15.5); WBC 10.6 k/uL (3.8-10.6)
[2018-02-21 07:26] LABS: Anion Gap 8 mmol/L; Blood Urea Nitrogen 23 mg/dL (7-17); Calcium 8.5 mg/dL (8.4-10.2); Carbon Dioxide 31 mmol/L (22-30); Chloride 101 mmol/L (98-107); Glucose 150 mg/dL (74-99); Potassium 4.1 mmol/L (3.5-5.1); Sodium 140 mmol/L (137-145)
[2018-02-21] MEDS ORDERED: FERROUS SULFATE 325 MG TAB PO SCH (07:30)
[2018-02-21] MEDS: ALBUTEROL NEBULIZED 2.5 MG/3 ML INHALATION SCH ×3 (08:40→15:18)
[2018-02-21] MEDS ORDERED: PARoxetine 20 MG TAB PO SCH (09:00)
[2018-02-21] MEDS ORDERED: AMANTADINE HCL 100 MG CAP PO SCH (09:00)
[2018-02-21 09:13] VITALS: RESP 14
[2018-02-21] MEDS: PANTOPRAZOLE 40 MG/10 ML VIAL IV SCH (09:38)
[2018-02-21] MEDS: methylPREDNISolone SOD SUCCI 40 MG/ML 1 ML VIAL IV SCH (09:38)
[2018-02-21] MEDS: ASPIRIN 81 MG PO SCH (09:39)
[2018-02-21] MEDS: LACOSAMIDE 50 MG TABLET PO SCH (09:39)
[2018-02-21] MEDS: METOPROLOL SUCCINATE (ER) 50 MG TAB.ER.24H PO SCH (09:40)
[2018-02-21] MEDS: FUROSEMIDE 40 MG TAB PO SCH (09:40)
[2018-02-21] MEDS: GABAPENTIN 400 MG CAP PO SCH ×2 (09:40→12:49)
[2018-02-21] MEDS: PRIMIDONE 50 MG TAB PO SCH (09:46)
[2018-02-21] MEDS: SPIRONOLACTONE 25 MG TAB PO SCH (09:59)
[2018-02-21 11:15] VITALS: BP 138/77; TEMP 99.1
[2018-02-21 11:39] LABS: Glucose,Whole Blood 131 mg/dL (75-99)
[2018-02-21] MEDS ORDERED: FOLIC ACID 1 MG TAB PO SCH (12:00)
[2018-02-21] MEDS ORDERED: MULTIVITAMINS, THERA 1 EACH TAB PO SCH (12:00)
[2018-02-21] MEDS: IPRATROPIUM-ALBUTEROL 3 ML NEB INHALATION PRN (12:11)
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
[2018-02-21 15:39] VITALS: PULSE 92
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
== END 2018-02-21 15:35 | disposition home health service (06) ==
LOC: EC 10:39 → 6SEL 13:47
PROVIDERS: ADMIT Family Medicine; ATTEND Family Medicine
DX: R06.02 Shortness of breath (principal); J44.1 Chronic obstructive pulmonary disease with (acute) exacerbation; F41.1 Generalized anxiety disorder; J96.21 Acute and chronic respiratory failure with hypoxia; J96.12 Chronic respiratory failure with hypercapnia; I11.0 Hypertensive heart disease with heart failure; I69.020 Aphasia following nontraumatic subarachnoid hemorrhage; I25.10 Atherosclerotic heart disease of native coronary artery without angina pectoris; I25.2 Old myocardial infarction; E78.5 Hyperlipidemia, unspecified; I27.20 Pulmonary hypertension, unspecified; R79.89 Other specified abnormal findings of blood chemistry; F32.9 Major depressive disorder, single episode, unspecified; D50.9 Iron deficiency anemia, unspecified; Z79.82 Long term (current) use of aspirin; Z79.899 Other long term (current) drug therapy; I50.42 Chronic combined systolic (congestive) and diastolic (congestive) heart failure; K21.9 Gastro-esophageal reflux disease without esophagitis; J96.22 Acute and chronic respiratory failure with hypercapnia; R13.10 Dysphagia, unspecified; D64.9 Anemia, unspecified; I73.9 Peripheral vascular disease, unspecified; H40.9 Unspecified glaucoma; G89.29 Other chronic pain; M25.532 Pain in left wrist; M81.0 Age-related osteoporosis without current pathological fracture; K90.0 Celiac disease; I25.5 Ischemic cardiomyopathy; Z95.1 Presence of aortocoronary bypass graft; Z87.820 Personal history of traumatic brain injury; Z79.51 Long term (current) use of inhaled steroids; Z88.1 Allergy status to other antibiotic agents; Z88.8 Allergy status to other drugs, medicaments and biological substances; Z99.81 Dependence on supplemental oxygen; Z87.891 Personal history of nicotine dependence; Z85.3 Personal history of malignant neoplasm of breast; Z92.3 Personal history of irradiation; Z95.5 Presence of coronary angioplasty implant and graft; Z87.01 Personal history of pneumonia (recurrent)
CPT/HCPCS: 99285; 96374 ×2; 96376 ×4; 96361 ×6; 96375; 36415; 94640 ×6; 93005; 93306; 83880; 80053; 80048 ×2; 82550 ×2; 82553 ×2; 83735 ×2; 84484 ×2; 85025 ×3; 85610; 85730; 87040; 83036; 71046; G0378 ×3; J2920 ×2; J2930 ×2; C9113 ×2

== ENCOUNTER 2018-03-05 00:50 | Inpatient (IN) | payer OTHER ==
[2018-03-05] MEDS ORDERED: methylPREDNISolone SOD SUCCI 125 MG/2 ML VIAL IV STA (00:59)
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
[2018-03-05] MEDS: IPRATROPIUM-ALBUTEROL 3 ML NEB INHALATION STA ×2 (01:08→07:24)
--- NOTE | 2018-03-05 01:22 | XR ---
EXAMINATION TYPE: XR chest 1V portable DATE OF EXAM: 03/05/2018 COMPARISON: 02/19/2018 HISTORY: Short of breath TECHNIQUE: Single frontal view of the chest is obtained. FINDINGS: There is pulmonary vascular congestion. There is mild pulmonary interstitial edema. Thorac ic aorta is atheromatous. There is slight blunting of right costophrenic angle. IMPRESSION: There is probably new mild congestive heart failure superimposed on COPD. Small right pl eural effusion.
[2018-03-05 02:16] LABS: Anisocytosis Slight; Basophils # (A) 0.1 k/uL (0-0.2); Basophils % (A) 0 %; Eosinophils # (A) 0.4 k/uL (0-0.7); Eosinophils % (A) 3 %; HCT 34.7 % (34.0-46.0); HGB 9.9 gm/dL (11.4-16.0); Hypochromasia Marked; Lymphocytes % (A) 18 %; MCH 23.1 pg (25.0-35.0); MCHC 28.6 g/dL (31.0-37.0); MCV 80.8 fL (80.0-100.0); Microcytosis Slight; Monocytes # (A) 1.3 k/uL (0-1.0); Monocytes % (A) 8 %; Neutrophils # (A) 11.4 k/uL (1.3-7.7); Neutrophils % (A) 69 %; Platelet Count 403 k/uL (150-450); RBC 4.29 m/uL (3.80-5.40); RDW 18.6 % (11.5-15.5); VBG PH 7.32 (7.31-7.41); WBC 16.4 k/uL (3.8-10.6)
[2018-03-05 02:26] LABS: ALT 78 U/L (9-52); AST 84 U/L (14-36); Albumin 4.4 g/dL (3.5-5.0); Alkaline Phosphatase 62 U/L (38-126); Anion Gap 11 mmol/L; Blood Urea Nitrogen 39 mg/dL (7-17); Calcium 9.4 mg/dL (8.4-10.2); Carbon Dioxide 32 mmol/L (22-30); Chloride 96 mmol/L (98-107); Glucose 223 mg/dL (74-99); Potassium 4.5 mmol/L (3.5-5.1); Sodium 139 mmol/L (137-145); Total Bilirubin 0.3 mg/dL (0.2-1.3); Total Protein 7.3 g/dL (6.3-8.2)
[2018-03-05 02:31] LABS: D-Dimer 0.55 mg/L FEU (<0.60); Partial Thromboplastin Time 22.4 sec (22.0-30.0); Prothrombin Time 9.6 sec (9.0-12.0)
[2018-03-05 02:49] LABS: Creatine Kinase MB 8.3 ng/mL (0.0-2.4)
[2018-03-05 02:53] LABS: Troponin I 0.046 ng/mL (0.000-0.034)
[2018-03-05] MEDS ORDERED: SIMETHICONE 80 MG CHEWABLE PO PRN (03:12)
[2018-03-05] MEDS ORDERED: SENNOSIDES 8.6 MG TAB PO PRN (03:12)
[2018-03-05 06:11] LABS: Glucose,Whole Blood 155 mg/dL (75-99)
[2018-03-05] MEDS: INSULIN ASPART 100 UNIT/ML 1 ML 10 ML VIAL SQ SCH ×4 (06:49→20:49)
[2018-03-05] MEDS: methylPREDNISolone SOD SUCCI 125 MG/2 ML VIAL IV SCH ×4 (06:50→23:31)
[2018-03-05] MEDS: FERROUS SULFATE 325 MG TAB PO SCH (06:53)
[2018-03-05] MEDS: SYMBICORT 160-4.5 MCG INHALER INHALATION SCH ×3 (07:22→18:59)
[2018-03-05] MEDS: IPRATROPIUM-ALBUTEROL 3 ML NEB INHALATION SCH ×4 (07:26→18:59)
[2018-03-05] MEDS ORDERED: BUDESONIDE 0.5 MG/2 ML NEBU INHALATION SCH (08:00)
[2018-03-05] MEDS ORDERED: IPRATROPIUM 0.5 MG/2.5 ML NEBU INHALATION SCH (08:00)
[2018-03-05] MEDS: ALPRAZolam 0.25 MG TAB PO PRN ×2 (08:55→17:53)
[2018-03-05] MEDS: LACOSAMIDE 50 MG TABLET PO SCH ×2 (09:06→20:51)
[2018-03-05] MEDS: FUROSEMIDE 20 MG TAB PO SCH (09:06)
[2018-03-05] MEDS: THIAMINE 100 MG TAB PO SCH (09:07)
[2018-03-05] MEDS: PARoxetine 20 MG TAB PO SCH (09:07)
[2018-03-05] MEDS: DONEPEZIL 5 MG TAB PO SCH (09:07)
[2018-03-05] MEDS: SPIRONOLACTONE 25 MG TAB PO SCH (09:07)
[2018-03-05] MEDS: AZITHROMYCIN 500 MG TAB PO SCH (09:07)
[2018-03-05] MEDS: AMANTADINE HCL 100 MG CAP PO SCH (09:07)
[2018-03-05] MEDS: ASPIRIN 81 MG PO SCH (09:07)
[2018-03-05] MEDS: METOPROLOL TARTRATE 12.5 MG TAB PO SCH ×2 (09:07→20:51)
[2018-03-05] MEDS: HYDROcodone/APAP 10-325MG 1 EACH TAB PO PRN ×2 (09:12→17:56)
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
[2018-03-05 11:23] LABS: Glucose,Whole Blood 304 mg/dL (75-99)
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
[2018-03-05] MEDS: FOLIC ACID 1 MG TAB PO SCH (12:56)
[2018-03-05 16:42] LABS: Glucose,Whole Blood 205 mg/dL (75-99)
[2018-03-05 20:42] LABS: Glucose,Whole Blood 185 mg/dL (75-99)
[2018-03-05] MEDS: ATORVASTATIN 80 MG TAB PO SCH (20:51)
[2018-03-06] MEDS: HYDROcodone/APAP 10-325MG 1 EACH TAB PO PRN ×3 (02:35→20:54)
[2018-03-06] MEDS: ALPRAZolam 0.25 MG TAB PO PRN ×3 (02:35→20:54)
[2018-03-06 03:31] LABS: Appearance,Urine Clear (Clear); Bacteria,Urine Rare /hpf; Bilirubin,Urine Negative (Negative); Blood,Urine Moderate (Negative); Color,Urine Yellow; Glucose,Urine (UA) Negative (Negative); Ketones,Urine Negative (Negative); Leukocyte Esterase,Urine Negative (Negative); Mucus,Urine Rare /hpf; Nitrite,Urine Negative (Negative); PH, Urine 5.5 (5.0-8.0); Protein,Urine Trace (Negative); RBC,Urine 18 /hpf (0-5); Specific Gravity,Urine 1.022 (1.001-1.035); Squamous Epithelial Cell,Urine <1 /hpf (0-4); Urobilinogen,Urine <2.0 mg/dL (<2.0); WBC,Urine 7 /hpf (0-5)
[2018-03-06] MEDS: methylPREDNISolone SOD SUCCI 125 MG/2 ML VIAL IV SCH ×2 (05:28→12:33)
[2018-03-06 06:23] LABS: Glucose,Whole Blood 156 mg/dL (75-99)
[2018-03-06] MEDS: INSULIN ASPART 100 UNIT/ML 1 ML 10 ML VIAL SQ SCH ×4 (06:37→20:55)
[2018-03-06] MEDS: FERROUS SULFATE 325 MG TAB PO SCH (06:38)
[2018-03-06] MEDS: SYMBICORT 160-4.5 MCG INHALER INHALATION SCH ×2 (08:31→19:27)
[2018-03-06] MEDS: IPRATROPIUM-ALBUTEROL 3 ML NEB INHALATION SCH ×4 (08:31→19:27)
[2018-03-06] MEDS: AZITHROMYCIN 500 MG TAB PO SCH (09:13)
[2018-03-06] MEDS: FUROSEMIDE 20 MG TAB PO SCH (09:13)
[2018-03-06] MEDS: ASPIRIN 81 MG PO SCH (09:13)
[2018-03-06] MEDS: THIAMINE 100 MG TAB PO SCH (09:13)
[2018-03-06] MEDS: AMANTADINE HCL 100 MG CAP PO SCH (09:13)
[2018-03-06] MEDS: PARoxetine 20 MG TAB PO SCH (09:13)
[2018-03-06] MEDS: SPIRONOLACTONE 25 MG TAB PO SCH (09:13)
[2018-03-06] MEDS: LACOSAMIDE 50 MG TABLET PO SCH ×2 (09:13→20:54)
[2018-03-06] MEDS: METOPROLOL TARTRATE 12.5 MG TAB PO SCH ×2 (09:13→20:54)
[2018-03-06] MEDS: DONEPEZIL 5 MG TAB PO SCH (09:14)
[2018-03-06 10:08] LABS: Anion Gap 9 mmol/L; Blood Urea Nitrogen 32 mg/dL (7-17); Calcium 9.1 mg/dL (8.4-10.2); Carbon Dioxide 30 mmol/L (22-30); Chloride 102 mmol/L (98-107); Glucose 158 mg/dL (74-99); Sodium 141 mmol/L (137-145)
[2018-03-06 10:33] LABS: Anisocytosis Slight; Basophils % (A) 0 %; Eosinophils % (A) 0 %; HCT 29.7 % (34.0-46.0); Hypochromasia Marked; Lymphocytes # (A) 0.4 k/uL (1.0-4.8); Lymphocytes % (A) 1 %; MCH 23.9 pg (25.0-35.0); MCHC 30.2 g/dL (31.0-37.0); MCV 79.1 fL (80.0-100.0); Mean Platelet Volume 7.2; Microcytosis Slight; Monocytes # (A) 0.9 k/uL (0-1.0); Monocytes % (A) 3 %; Neutrophils # (A) 29.7 k/uL (1.3-7.7); Neutrophils % (A) 96 %; Platelet Count 339 k/uL (150-450); RBC 3.76 m/uL (3.80-5.40); RDW 18.4 % (11.5-15.5); WBC 31.1 k/uL (3.8-10.6)
[2018-03-06] MEDS ORDERED: FUROSEMIDE 10 MG/ML 2 ML VIAL IV ONE (11:00)
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
[2018-03-06 11:03] LABS: Hemoglobin A1C 6.2 % (4.0-6.0)
[2018-03-06 11:11] VITALS: BMI 19.7
[2018-03-06 11:59] LABS: Glucose,Whole Blood 140 mg/dL (75-99)
[2018-03-06] MEDS: FOLIC ACID 1 MG TAB PO SCH (12:33)
[2018-03-06] MEDS: LOSARTAN 25 MG TAB PO SCH (12:33)
[2018-03-06] MEDS: MULTIVITAMINS, THERA 1 EACH TAB PO SCH (12:33)
--- NOTE | 2018-03-06 13:09 | FL ---
COMPARISON: NONE DATE OF EXAM: 03/06/2018 HISTORY: Dysphasia A number of thin and thick substances were ingested under the care of the department of speech pathol ogy. There is no evidence of aspiration or penetration. There is no evidence of obstruction. Delay ed oral clearance and vallecular pooling noted. IMPRESSION: 1. No evidence of aspiration or penetration.
--- NOTE | 2018-03-06 13:56 | P.PN ---
Subjective Progress Note Date: 03/06/18 Principal diagnosis: Shortness of breath, CHF Progress note dated 03/06/2018 62-year-old female with a history of chronic hypoxemic respiratory failure secondary to CHF and chronic systolic dysfunction. In addition, she has stage III chronic lung disease with an FEV1 of 34% of predicted. The patient had a barium swallow and there is no evidence of aspiration or penetration. The patient is feeling much better from the pulmonary standpoint. Much less short of breath. Sitting up at bedside. Not requiring any supplemental oxygen at this time. She denies any chest pain or chest discomfort. Not coughing or wheezing. Not producing any phlegm. The patient is not coughing up any blood either. In addition, the patient has a history of ischemic cardiomyopathy severe pulmonary pretension CAD with previous bypass grafting and stenting valvular heart disease chronic and ongoing tobacco abuse traumatic brain injury hypertension hyperlipidemia P this myocardial infarction pneumonia and peripheral artery disease right breast cancer, status post lumpectomy and radiation glaucoma and osteoporosis. Objective - Vital Signs Vital signs: Vital Signs Temp 98.4 F 03/06/18 12:00 Pulse 94 03/06/18 12:00 Resp 20 03/06/18 12:00 BP 112/73 03/06/18 12:00 Pulse Ox 92 L 03/06/18 12:00 Intake & Output 03/05/18 03/06/18 03/06/18 18:59 06:59 18:59 Intake Total 600 240 480 Output Total 300 Balance 300 240 480 Weight 47.1 kg 50.5 kg Intake: Oral 600 240 480 Output: Urine 300 Other: # Voids 1 - Exam No acute distress, oriented 3. In no respiratory distress. HEENT examination is grossly unremarkable. Mucous membranes are moist. No oral lesions. Neck supple. Full range of motion. No adenopathy thyromegaly or neck vein distention. Cardiovascular examination reveals regular rhythm rate. S1-S2 normal. No S3 or S4. No discernible murmur noted. Lungs reveal mostly clear breath sounds. There are a few scattered rhonchi. No wheezes. A few bibasilar crackles. Breath sounds equal bilaterally. Slight prolongation on forced maneuver. Abdomen soft bowel sounds are heard. No masses or tenderness. Extremities are intact. No cyanosis clubbing or edema. Skin is without rash or lesion. Neurologic examination is brief but nonfocal. - Labs CBC & Chem 7: 03/06/18 09:23 18 09:23 Labs: Abnormal Lab Results - Last 24 Hours (Table) 03/05/18 03/05/18 03/05/18 Range/Units 02:00 02:41 16:40 WBC (3.8-10.6) k/uL RBC (3.80-5.40) m/uL Hgb (11.4-16.0) gm/dL Hct (34.0-46.0) % MCV (80.0-100.0) fL MCH (25.0-35.0) pg MCHC (31.0-37.0) g/dL RDW (11.5-15.5) % Neutrophils # (1.3-7.7) k/uL Lymphocytes # (1.0-4.8) k/uL BUN (7-17) mg/dL Glucose (74-99) mg/dL POC Glucose (mg/dL) 205 H (75-99) mg/dL Hemoglobin A1c 6.2 H (4.0-6.0) % Troponin I (0.000-0.034) ng/mL Urine Protein Trace H (Negative) Urine Blood Moderate H (Negative) Urine RBC 18 H (0-5) /hpf Urine WBC 7 H (0-5) /hpf Urine Bacteria Rare H (None) /hpf Urine Mucus Rare H (None) /hpf 03/05/1818 03/06/18 Range/Units 20:41 06:21 09:23 WBC 31.1 H (3.8-10.6) k/uL RBC 3.76 L (3.80-5.40) m/uL Hgb 9.0 L (11.4-16.0) gm/dL Hct 29.7 L (34.0-46.0) % MCV 79.1 L (80.0-100.0) fL MCH 23.9 L (25.0-35.0) pg MCHC 30.2 L (31.0-37.0) g/dL RDW 18.4 H (11.5-15.5) % Neutrophils # 29.7 H (1.3-7.7) k/uL Lymphocytes # 0.4 L (1.0-4.8) k/uL BUN (7-17) mg/dL Glucose (74-99) mg/dL POC Glucose (mg/dL) 185 H 156 H (75-99) mg/dL Hemoglobin A1c (4.0-6.0) % Troponin I (0.000-0.034) ng/mL Urine Protein (Negative) Urine Blood (Negative) Urine RBC (0-5) /hpf Urine WBC (0-5) /hpf Urine Bacteria (None) /hpf Urine Mucus (None) /hpf 03/06/18 03/06/18 03/06/18 Range/Units 09:23 09:23 11:49 WBC (3.8-10.6) k/uL RBC (3.80-5.40) m/uL Hgb (11.4-16.0) gm/dL Hct (34.0-46.0) % MCV (80.0-100.0) fL MCH (25.0-35.0) pg MCHC (31.0-37.0) g/dL RDW (11.5-15.5) % Neutrophils # (1.3-7.7) k/uL Lymphocytes # (1.0-4.8) k/uL BUN 32 H (7-17) mg/dL Glucose 158 H (74-99) mg/dL POC Glucose (mg/dL) 140 H (75-99) mg/dL Hemoglobin A1c (4.0-6.0) % Troponin I 0.073 H* (0.000-0.034) ng/mL Urine Protein (Negative) Urine Blood (Negative) Urine RBC (0-5) /hpf Urine WBC (0-5) /hpf Urine Bacteria (None) /hpf Urine Mucus (None) /hpf Microbiology - Last 24 Hours (Table) 03/05/18 02:00 Blood Culture - Preliminary Blood No Growth after 24 hours Assessment and Plan Assessment: Assessment Acute on chronic hypoxemic respiratory failure, secondary to systolic congestive heart failure Severe COPD, stage III, with an FEV1 that is 34% of predicted History of ischemic cardiomyopathy with an ejection fraction of 30-35% Severe pulmonary hypertension, likely secondary to both chronic lung and heart disease CAD with previous bypass grafting and stenting Previous history of mitral and tricuspid valve surgery for valvular heart disease Chronic and ongoing tobacco dependence Traumatic brain injury Hypertension Hyperlipidemia Previous myocardial infarction Previous episode of pneumonia Peripheral artery disease Right breast cancer, status post lumpectomy and radiation Glaucoma Osteoporosis No evidence of aspiration or penetration on today's barium swallow Plan: Plan dated 03/06/2018 It appears that the patient did not have any aspiration on barium swallow. From the pulmonary standpoint, she seemed be doing relatively well. She also mentions that her breathing is much improved. Labs from today reveal a white count of 31.1 hemoglobin 9 hematocrit 29.7 and platelet count 339,000. Sodium potassium chloride CO2 and anion gap are all normal. BUN 32 creatinine 0.59 suggesting prerenal azotemia. Microbiology is negative. Labs and x-rays are reviewed. Medications are reviewed. We will continue to follow. Antibiotics are discontinued. Steroids and discontinued. Time with Patient: Less than 30
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
[2018-03-06 16:43] LABS: Glucose,Whole Blood 159 mg/dL (75-99)
[2018-03-06 20:52] LABS: Glucose,Whole Blood 185 mg/dL (75-99)
[2018-03-06] MEDS: FAMOTIDINE 20 MG TAB PO SCH (20:54)
[2018-03-06] MEDS: ATORVASTATIN 80 MG TAB PO SCH (20:54)
[2018-03-07 06:10] LABS: Glucose,Whole Blood 169 mg/dL (75-99)
[2018-03-07] MEDS: INSULIN ASPART 100 UNIT/ML 1 ML 10 ML VIAL SQ SCH ×2 (06:30→11:53)
[2018-03-07] MEDS: FERROUS SULFATE 325 MG TAB PO SCH (06:30)
[2018-03-07] MEDS: IPRATROPIUM-ALBUTEROL 3 ML NEB INHALATION SCH ×3 (08:30→15:51)
[2018-03-07] MEDS: METOPROLOL TARTRATE 12.5 MG TAB PO SCH (08:31)
[2018-03-07] MEDS: SYMBICORT 160-4.5 MCG INHALER INHALATION SCH (08:31)
[2018-03-07] MEDS: SPIRONOLACTONE 25 MG TAB PO SCH (08:32)
[2018-03-07] MEDS: ASPIRIN 81 MG PO SCH (08:32)
[2018-03-07] MEDS: FOLIC ACID 1 MG TAB PO SCH (08:32)
[2018-03-07] MEDS: PARoxetine 20 MG TAB PO SCH (08:32)
[2018-03-07] MEDS: DONEPEZIL 5 MG TAB PO SCH (08:32)
[2018-03-07] MEDS: FAMOTIDINE 20 MG TAB PO SCH (08:32)
[2018-03-07] MEDS: FUROSEMIDE 20 MG TAB PO SCH (08:32)
[2018-03-07] MEDS: MULTIVITAMINS, THERA 1 EACH TAB PO SCH (08:33)
[2018-03-07] MEDS: THIAMINE 100 MG TAB PO SCH (08:33)
[2018-03-07] MEDS: AMANTADINE HCL 100 MG CAP PO SCH (08:33)
[2018-03-07] MEDS: LOSARTAN 25 MG TAB PO SCH (08:33)
[2018-03-07 08:35] LABS: Anisocytosis Slight; Basophils % (A) 0 %; Eosinophils % (A) 0 %; HCT 30.9 % (34.0-46.0); HGB 9.1 gm/dL (11.4-16.0); Hypochromasia Marked; Lymphocytes # (A) 1.1 k/uL (1.0-4.8); Lymphocytes % (A) 5 %; MCH 23.3 pg (25.0-35.0); MCHC 29.5 g/dL (31.0-37.0); MCV 78.9 fL (80.0-100.0); Mean Platelet Volume 7.2; Microcytosis Slight; Monocytes % (A) 5 %; Neutrophils # (A) 18.6 k/uL (1.3-7.7); Neutrophils % (A) 89 %; Platelet Count 362 k/uL (150-450); RBC 3.92 m/uL (3.80-5.40); RDW 18.7 % (11.5-15.5); WBC 20.9 k/uL (3.8-10.6)
[2018-03-07] MEDS: HYDROcodone/APAP 10-325MG 1 EACH TAB PO PRN (08:49)
[2018-03-07 08:53] LABS: Anion Gap 8 mmol/L; Blood Urea Nitrogen 33 mg/dL (7-17); Calcium 8.8 mg/dL (8.4-10.2); Carbon Dioxide 30 mmol/L (22-30); Chloride 106 mmol/L (98-107); Glucose 120 mg/dL (74-99); Potassium 3.9 mmol/L (3.5-5.1); Sodium 144 mmol/L (137-145)
[2018-03-07 09:12] VITALS: TEMP 97
[2018-03-07] MEDS: LACOSAMIDE 50 MG TABLET PO SCH (10:21)
[2018-03-07 11:25] LABS: Glucose,Whole Blood 120 mg/dL (75-99)
--- NOTE | 2018-03-07 11:45 | P.PN ---
Subjective Progress Note Date: 03/07/18 Principal diagnosis: Acute on chronic hypoxemic respiratory failure secondary to acute exacerbation of systolic congestive heart failure as well as acute exacerbation of severe chronic obstructive pulmonary disease. The patient is seen again today 03/07/2018 in follow-up on the selective care unit. She is awake and alert in no acute distress. She states she is breathing easier today as compared to yesterday. No worsening cough or congestion. She is maintaining good O2 saturations in the 90s on 3 L/m per nasal cannula. She's been afebrile. Hemodynamically stable. Her weight is improved currently 47.4 kg. She remains on diuretics. She remains on bronchodilators and Symbicort. Blood cultures reveal no growth to date. White count 20.9. Hemoglobin 9.1. Creatinine 0.63. Objective - Vital Signs Vital signs: Vital Signs Temp 97 F L 03/07/18 08:00 Pulse 78 03/07/18 08:46 Resp 16 03/07/18 08:32 BP 124/68 03/07/18 08:00 Pulse Ox 94 L 03/07/18 08:00 Intake & Output 03/06/18 03/07/18 03/07/18 18:59 06:59 18:59 Intake Total 920 240 Output Total 450 Balance 470 240 Weight 50.5 kg 47.4 kg Intake: Oral 920 240 Output: Urine 450 Other: # Voids 3 - Exam GENERAL EXAM: Alert, active, comfortable in no apparent distress. HEAD: Normocephalic. EYES: Normal reaction of pupils, equal size. NOSE: Clear with pink turbinates. THROAT: No erythema or exudates. NECK: No masses, no JVD. CHEST: No chest wall deformity. LUNGS: Equal air entry with faint crackles in the posterior bases, end expiratory wheeze, diminished.. CVS: S1 and S2 normal with no audible murmur, regular rhythm. ABDOMEN: No hepatosplenomegaly, normal bowel sounds, no guarding or rigidity. SPINE: No scoliosis or deformity SKIN: No rashes CENTRAL NERVOUS SYSTEM: No focal deficits, tone is normal in all 4 extremities. EXTREMITIES: There is no peripheral edema. No clubbing, no cyanosis. Peripheral pulses are intact. - Labs CBC & Chem 7: 03/07/18 07:53 03/07/18 07:53 Labs: Abnormal Lab Results - Last 24 Hours (Table) 03/06/18 03/06/18 03/06/18 Range/Units 11:49 16:15 16:38 WBC (3.8-10.6) k/uL Hgb (11.4-16.0) gm/dL Hct (34.0-46.0) % MCV (80.0-100.0) fL MCH (25.0-35.0) pg MCHC (31.0-37.0) g/dL RDW (11.5-15.5) % Neutrophils # (1.3-7.7) k/uL BUN (7-17) mg/dL Glucose (74-99) mg/dL POC Glucose (mg/dL) 140 H 159 H (75-99) mg/dL Troponin I 0.082 H* (0.000-0.034) ng/mL 03/06/18 03/06/18 03/07/18 Range/Units 20:47 21:34 06:08 WBC (3.8-10.6) k/uL Hgb (11.4-16.0) gm/dL Hct (34.0-46.0) % MCV (80.0-100.0) fL MCH (25.0-35.0) pg MCHC (31.0-37.0) g/dL RDW (11.5-15.5) % Neutrophils # (1.3-7.7) k/uL BUN (7-17) mg/dL Glucose (74-99) mg/dL POC Glucose (mg/dL) 185 H 169 H (75-99) mg/dL Troponin I 0.070 H* (0.000-0.034) ng/mL 03/07/18 03/07/18 03/07/18 Range/Units 07:53 07:53 11:19 WBC 20.9 H (3.8-10.6) k/uL Hgb 9.1 L (11.4-16.0) gm/dL Hct 30.9 L (34.0-46.0) % MCV 78.9 L (80.0-100.0) fL MCH 23.3 L (25.0-35.0) pg MCHC 29.5 L (31.0-37.0) g/dL RDW 18.7 H (11.5-15.5) % Neutrophils # 18.6 H (1.3-7.7) k/uL BUN 33 H (7-17) mg/dL Glucose 120 H (74-99) mg/dL POC Glucose (mg/dL) 120 H (75-99) mg/dL Troponin I (0.000-0.034) ng/mL Microbiology - Last 24 Hours (Table) 03/05/18 02:00 Blood Culture - Preliminary Blood No Growth after 48 hours Assessment and Plan Assessment: Assessment: #1 Acute on chronic hypoxic respiratory failure secondary to an acute exacerbation of chronic systolic congestive heart failure. #2 Severe ischemic cardiomyopathy with ejection fraction 30-35%. #3 Pulmonary hypertension secondary to both chronic lung and heart disease. #4 Severe chronic obstructive pulmonary disease, Gold stage III with an FEV1 value 34% of predicted. #5 Coronary artery disease with previous bypass grafting and stenting. #6 Chronic and ongoing tobacco dependence. #7 Previous history of mitral and tricuspid valvular surgery secondary to valvular heart disease. #8 History of traumatic brain injury. #9 Hypertension. #10 Hyperlipidemia. #11 Peripheral vascular disease. #12 History of right breast cancer status post lumpectomy and radiation. Plan: The patient was seen and evaluated by Dr. Jiménez. She is improved today as compared to yesterday. She remains on DuoNeb inhalations along with Symbicort. Remains on oral diuretics. We will increase her activity as tolerated. We' ll continue to follow. I, the cosigning physician, performed a history & physical examination of the patient. Lungs sounds with faint basilar crackles, end expiratory wheeze, diminished. Maintaining good O2 saturations in the 90s on 3 L/m per nasal cannula. I discussed the assessment and plan of care with my nurse practitioner , Katarina Levin. I attest to the above note as dictated by her.
[2018-03-07 11:58] VITALS: BP 131/70; RESP 18
[2018-03-07 13:41] VITALS: PULSE 86
--- NOTE | 2018-03-07 14:44 | P.PN ---
Subjective Progress Note Date: 03/07/18 This is 62-year-old female who follows regularly with Dr. Gan in the office. She was in the hospital earlier this month with symptoms of shortness of breath. She has a known history of coronary artery disease with prior RCA stenting in 2014, CABG in 2016. Patient also has history of mitral and tricuspid valve repair, History of PAD with prior peripheral stenting, hypertension, hyperlipidemia, nicotine dependence, ischemic cardiomyopathy with prior ejection fraction documented to be 30-35%, severe pulmonary hypertension, repeat echo in May 2017 showed an ejection fraction of 50-55%, patient also has moderate to severe emphysema, COPD, history of breast cancer, anemia, anxiety, tremors, and a recent traumatic brain injury. She presented to the hospital again on this occasion with symptoms of shortness of breath. Chest x- ray reveals new mild congestive heart failure, superimposed on COPD. Small right pleural effusion. EKG on admission shows sinus tachycardia with nonspecific ST-T wave changes. Subsequent EKG again shows a sinus tachycardia with nonspecific ST-T wave changes. Blood pressure 100/50 with a heart rate in the 90s, 94% on 6 L of oxygen. White blood cell count on admission 16.4, 31 this morning, hemoglobin 9.0, platelet count 339. Sodium 141, potassium 4.0, BUN 32, creatinine 0.5. AST 84, ALT 78, troponin 0.04, 0.07, BNP level 1710. Which is down from recent admission. At the time of our examination this morning, patient complains of having cough, she denies any overt shortness of breath, denies any chest discomfort. 03/07/2018 Patient seen and examined this morning, awake and alert, no acute distress. Her breathing seems improved as compared to yesterday, she is maintaining good oxygen saturations and she has been afebrile. Hemodynamically she is stable. On oral diuretics at this time. Blood cultures did not reveal any growth thus far. Objective - Vital Signs Vital signs: Vital Signs Temp 97 F L 03/07/18 08:00 Pulse 86 03/07/18 13:39 Resp 18 03/07/18 11:54 BP 131/70 03/07/18 11:54 Pulse Ox 99 03/07/18 11:54 Intake & Output 03/06/18 03/07/18 03/07/18 18:59 06:59 18:59 Intake Total 920 240 Output Total 450 Balance 470 240 Weight 50.5 kg 47.4 kg Intake: Oral 920 240 Output: Urine 450 Other: # Voids 3 2 - Exam PHYSICAL EXAMINATION: GENERAL: 62-year-old female in no acute distress examination HEENT: Head is atraumatic, normocephalic. Pupils equal, round. Sclera anicteric. Conjunctiva are clear. Mucous membranes of the mouth are moist. Neck is supple. There is no elevated jugular venous pressure. No carotid bruit is heard. HEART EXAMINATION: [Heart S1, S2 systolic murmur is heard. CHEST EXAMINATION: Lungs are clear with fine crackles to the bases ABDOMEN: Soft, nontender. Bowel sounds are heard. No organomegaly noted. EXTREMITIES: 2+ peripheral pulses with no evidence of peripheral edema and no calf tenderness noted. NEUROLOGIC patient is awake, alert and oriented ?-3. - Labs CBC & Chem 7: 03/07/18 07:53 03/07/18 07:53 Labs: Abnormal Lab Results - Last 24 Hours (Table) 03/06/18 03/06/18 03/06/18 Range/Units 16:15 16:38 20:47 WBC (3.8-10.6) k/uL Hgb (11.4-16.0) gm/dL Hct (34.0-46.0) % MCV (80.0-100.0) fL MCH (25.0-35.0) pg MCHC (31.0-37.0) g/dL RDW (11.5-15.5) % Neutrophils # (1.3-7.7) k/uL BUN (7-17) mg/dL Glucose (74-99) mg/dL POC Glucose (mg/dL) 159 H 185 H (75-99) mg/dL Troponin I 0.082 H* (0.000-0.034) ng/mL 03/06/18 03/07/18 03/07/18 Range/Units 21:34 06:08 07:53 WBC 20.9 H (3.8-10.6) k/uL Hgb 9.1 L (11.4-16.0) gm/dL Hct 30.9 L (34.0-46.0) % MCV 78.9 L (80.0-100.0) fL MCH 23.3 L (25.0-35.0) pg MCHC 29.5 L (31.0-37.0) g/dL RDW 18.7 H (11.5-15.5) % Neutrophils # 18.6 H (1.3-7.7) k/uL BUN (7-17) mg/dL Glucose (74-99) mg/dL POC Glucose (mg/dL) 169 H (75-99) mg/dL Troponin I 0.070 H* (0.000-0.034) ng/mL 03/07/18 03/07/18 Range/Units 07:53 11:19 WBC (3.8-10.6) k/uL Hgb (11.4-16.0) gm/dL Hct (34.0-46.0) % MCV (80.0-100.0) fL MCH (25.0-35.0) pg MCHC (31.0-37.0) g/dL RDW (11.5-15.5) % Neutrophils # (1.3-7.7) k/uL BUN 33 H (7-17) mg/dL Glucose 120 H (74-99) mg/dL POC Glucose (mg/dL) 120 H (75-99) mg/dL Troponin I (0.000-0.034) ng/mL Microbiology - Last 24 Hours (Table) 03/05/18 02:00 Blood Culture - Preliminary Blood No Growth after 48 hours Assessment and Plan Plan: Assessment and plan #1 symptoms of shortness of breath, likely acute exacerbation of severe end- stage COPD #2 mild congestive heart failure, systolic , acute on chronic #3 leukocytosis #4 abnormal troponin, likely secondary to supply and demand mismatch #5 history of ischemic cardiomyopathy with recent documented ejection fraction of 35-40% earlier this month. #6 severe pulmonary hypertension #7 coronary artery disease with prior stent placement and bypass surgery #8 prior mitral and tricuspid valve surgery #9 nicotine dependence #10 recent traumatic brain injury with subarachnoid hemorrhage #11 hypertension #12 PAD Plan Cardiology's perspective, we'll continue the patient on her current medications. We will follow her now on an as-needed basis only, please don't hesitate to call with any questions. DNP note has been reviewed, I agree with a documented findings and plan of care. Patient was seen and examined.
== END 2018-03-07 15:41 | disposition home or self-care (01) | DRG 291 ==
LOC: EC 00:50 → 6SEL 03:09
PROVIDERS: ADMIT Family Medicine; ATTEND Family Medicine
DX: I11.0 Hypertensive heart disease with heart failure (principal); J96.21 Acute and chronic respiratory failure with hypoxia; J96.22 Acute and chronic respiratory failure with hypercapnia; J44.1 Chronic obstructive pulmonary disease with (acute) exacerbation; R47.01 Aphasia; I24.8 Other forms of acute ischemic heart disease; I50.23 Acute on chronic systolic (congestive) heart failure; K21.9 Gastro-esophageal reflux disease without esophagitis; Z85.3 Personal history of malignant neoplasm of breast; D50.9 Iron deficiency anemia, unspecified; E78.5 Hyperlipidemia, unspecified; F17.200 Nicotine dependence, unspecified, uncomplicated; F32.9 Major depressive disorder, single episode, unspecified; F41.1 Generalized anxiety disorder; H40.9 Unspecified glaucoma; I25.10 Atherosclerotic heart disease of native coronary artery without angina pectoris; I25.2 Old myocardial infarction; I25.5 Ischemic cardiomyopathy; I27.20 Pulmonary hypertension, unspecified; I73.9 Peripheral vascular disease, unspecified; Z87.01 Personal history of pneumonia (recurrent); K90.0 Celiac disease; M81.0 Age-related osteoporosis without current pathological fracture; R13.10 Dysphagia, unspecified; S06.6X9S Traumatic subarachnoid hemorrhage with loss of consciousness of unspecified duration, sequela; V49.9XXS Car occupant (driver) (passenger) injured in unspecified traffic accident, sequela; Z79.02 Long term (current) use of antithrombotics/antiplatelets; Z79.51 Long term (current) use of inhaled steroids; Z79.82 Long term (current) use of aspirin; Z79.899 Other long term (current) drug therapy; Z82.49 Family history of ischemic heart disease and other diseases of the circulatory system; Z83.3 Family history of diabetes mellitus; Z92.3 Personal history of irradiation; Z95.1 Presence of aortocoronary bypass graft; Z95.5 Presence of coronary angioplasty implant and graft; Z99.81 Dependence on supplemental oxygen; Z95.828 Presence of other vascular implants and grafts; R25.1 Tremor, unspecified; G89.29 Other chronic pain; M25.532 Pain in left wrist; M25.531 Pain in right wrist; Z88.1 Allergy status to other antibiotic agents; Z88.8 Allergy status to other drugs, medicaments and biological substances; Z83.2 Family history of diseases of the blood and blood-forming organs and certain disorders involving the immune mechanism
CPT/HCPCS: 36415; 71045; 74230; 80048; 80053; 81001; 82550; 82553; 82803; 83036; 83605; 83880; 84484; 85025; 85379; 85610; 85730; 87040; 93005; 94640; 94660; 96374; 99291

== ENCOUNTER 2018-03-18 21:55 | Inpatient (IN) | payer OTHER ==
[2018-03-18] MEDS ORDERED: IPRATROPIUM 0.5 MG/2.5 ML NEBU INHALATION STA (22:11)
[2018-03-18] MEDS ORDERED: methylPREDNISolone SOD SUCCI 125 MG/2 ML VIAL IV STA (22:11)
[2018-03-18] MEDS ORDERED: ALBUTEROL NEBULIZED 2.5 MG/3 ML INHALATION STA (22:11)
[2018-03-18] MEDS ORDERED: AZITHROMYCIN 500 MG in SODIUM CHLORIDE 0.9% 250 ML IVPB STA (22:11)
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
--- NOTE | 2018-03-18 23:33 | XR ---
EXAMINATION TYPE: XR chest 2V DATE OF EXAM: 03/18/2018 COMPARISON: 03/05/2018 HISTORY: Difficulty breathing TECHNIQUE: Frontal and lateral views of the chest are obtained. FINDINGS: There is coarse interstitial density in the mid and lower lung hastings. There are sternal w ires. There are chest leads. There is no gross heart failure. IMPRESSION: Pulmonary fibrotic changes. No overt heart failure. No change compared to old exam. I do not see pleural fluid accumulation to suggest heart failure.
[2018-03-18 23:47] LABS: Anisocytosis Slight; Basophils % (A) 0 %; Eosinophils # (A) 0.1 k/uL (0-0.7); Eosinophils % (A) 0 %; HCT 28.7 % (34.0-46.0); HGB 8.3 gm/dL (11.4-16.0); Hypochromasia Marked; Lymphocytes # (A) 0.5 k/uL (1.0-4.8); Lymphocytes % (A) 3 %; MCH 22.7 pg (25.0-35.0); MCHC 29.1 g/dL (31.0-37.0); MCV 78.1 fL (80.0-100.0); Mean Platelet Volume 6.7; Microcytosis Slight; Monocytes # (A) 0.6 k/uL (0-1.0); Monocytes % (A) 4 %; Neutrophils # (A) 14.6 k/uL (1.3-7.7); Neutrophils % (A) 92 %; Platelet Count 323 k/uL (150-450); RBC 3.67 m/uL (3.80-5.40); RDW 17.8 % (11.5-15.5); WBC 15.9 k/uL (3.8-10.6)
[2018-03-18 23:59] LABS: ALT 37 U/L (9-52); AST 37 U/L (14-36); Albumin 3.6 g/dL (3.5-5.0); Alkaline Phosphatase 46 U/L (38-126); Anion Gap 6 mmol/L; Blood Urea Nitrogen 27 mg/dL (7-17); Calcium 8.5 mg/dL (8.4-10.2); Carbon Dioxide 29 mmol/L (22-30); Chloride 102 mmol/L (98-107); Glucose 115 mg/dL (74-99); Magnesium 2.4 mg/dL (1.6-2.3); Potassium 4.2 mmol/L (3.5-5.1); Sodium 137 mmol/L (137-145); Total Bilirubin 0.3 mg/dL (0.2-1.3); Total Protein 6.3 g/dL (6.3-8.2)
[2018-03-19 00:01] LABS: Partial Thromboplastin Time 24.3 sec (22.0-30.0); Prothrombin Time 9.5 sec (9.0-12.0)
[2018-03-19 00:21] LABS: Creatine Kinase MB 7.8 ng/mL (0.0-2.4)
[2018-03-19 00:23] LABS: Troponin I 0.041 ng/mL (0.000-0.034)
[2018-03-19 01:49] LABS: VBG PH 7.47 (7.31-7.41)
[2018-03-19 02:37] VITALS: BMI 19.8
[2018-03-19] MEDS ORDERED: SENNOSIDES 8.6 MG TAB PO PRN (04:04)
[2018-03-19] MEDS ORDERED: ALBUTEROL NEBULIZED 2.5 MG/3 ML INHALATION PRN (04:04)
[2018-03-19] MEDS ORDERED: SIMETHICONE 80 MG CHEWABLE PO PRN (04:04)
[2018-03-19] MEDS ORDERED: ALPRAZolam 0.25 MG TAB PO PRN (04:04)
[2018-03-19] MEDS ORDERED: NITROGLYCERIN SL TABS 0.4 MG TAB SUBLINGUAL PRN (04:04)
[2018-03-19] MEDS: HYDROcodone/APAP 7.5-325MG 1 EACH TAB PO PRN ×2 (04:38→13:04)
[2018-03-19] MEDS: GABAPENTIN 400 MG CAP PO SCH ×3 (04:38→12:30)
[2018-03-19] MEDS ORDERED: FERROUS SULFATE 325 MG TAB PO SCH (07:30)
[2018-03-19] MEDS ORDERED: IPRATROPIUM 0.5 MG/2.5 ML NEBU INHALATION SCH (08:00)
[2018-03-19] MEDS ORDERED: SYMBICORT 160-4.5 MCG INHALER INHALATION SCH (08:00)
[2018-03-19] MEDS ORDERED: BUDESONIDE 0.5 MG/2 ML NEBU INHALATION SCH (08:00)
[2018-03-19] MEDS ORDERED: FAMOTIDINE 20 MG TAB PO SCH (09:00)
[2018-03-19] MEDS ORDERED: AZITHROMYCIN 500 MG TAB PO SCH (09:00)
[2018-03-19] MEDS ORDERED: LOSARTAN 25 MG TAB PO SCH (09:00)
[2018-03-19] MEDS ORDERED: METOPROLOL TARTRATE 12.5 MG TAB PO SCH (09:00)
[2018-03-19] MEDS ORDERED: predniSONE 20 MG TAB PO SCH (09:00)
[2018-03-19] MEDS ORDERED: PARoxetine 20 MG TAB PO SCH (09:00)
[2018-03-19] MEDS ORDERED: AMANTADINE HCL 100 MG CAP PO SCH (09:00)
[2018-03-19] MEDS ORDERED: THIAMINE 100 MG TAB PO SCH (09:00)
[2018-03-19] MEDS ORDERED: SPIRONOLACTONE 25 MG TAB PO SCH (09:00)
[2018-03-19] MEDS ORDERED: PRIMIDONE 50 MG TAB PO SCH (09:00)
[2018-03-19] MEDS ORDERED: ASPIRIN 81 MG PO SCH (09:00)
[2018-03-19] MEDS ORDERED: DONEPEZIL 10 MG TAB PO SCH (09:00)
[2018-03-19] MEDS ORDERED: CLOPIDOGREL 75 MG TAB PO SCH (09:00)
[2018-03-19] MEDS ORDERED: CYANOCOBALAMIN 500 MCG TAB PO SCH (09:00)
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
[2018-03-19] MEDS ORDERED: FLUTICASONE 50MCG/SPRAY NASAL 16GM EA NOSTRIL SCH (11:30)
[2018-03-19] MEDS ORDERED: guaiFENesin 600 MG TABLET.ER PO SCH (11:30)
[2018-03-19 11:46] VITALS: BP 113/71; TEMP 97.6
[2018-03-19] MEDS ORDERED: FOLIC ACID 1 MG TAB PO SCH (12:00)
[2018-03-19 13:38] VITALS: RESP 22
[2018-03-19 13:48] VITALS: PULSE 102
[2018-03-19] MEDS ORDERED: FUROSEMIDE 20 MG TAB PO SCH (21:00)
[2018-03-19] MEDS ORDERED: ATORVASTATIN 80 MG TAB PO SCH (21:00)
--- NOTE | 2018-03-20 08:52 | CDI ---
Last Revision, May 2017 Documentation Clarification Form Date: 03/20/2018 8:38:26 AM From: Carina Robbins Phone: If you have a question about this query, please contact Vernell Sánchez Technical Operations Vice President at [phone] between 8am and 5pm. Admit Date: 03/19/2018 1:13:00 AM Patient Name: Kasandra Benítez Visit Number: [id number] Discharge Date: 03/19/18 ATTENTION: The Clinical Documentation Specialists (CDI) and [facility] Coding Staff appreciate your assistance in clarifying documentation. Please respond to the clarification below the line at the bottom and electronically sign. The CDI & [facility] Coding staff will review the response and follow-up if needed. Please note: Queries are made part of the Legal Health Record. If you have any questions, please contact the author of this message via ITS. Yovani Rahman MD History/Risk Factors:. Patient presents with SOB due to AECOPD and CHF, history CAD CABG stents Clinical Indicators: Chronic CHF documented in ER, H and P, DCS. Please clarify type of CHF. VS/Pulse OX: 98.0 F axillary, 107 BPM, 18, 115/57, 100% on venti mask 8 BNP: 2620 Treatment: Patient on PO daily Lasix In your professional opinion, can you please clarify the type of CHF if known? Systolic Heart Failure Diastolic Heart Failure: Systolic & Diastolic Heart Failure: Unable to Determine Other, please specify chronic Systolic MTDD
== END 2018-03-19 14:22 | disposition home health service (06) | DRG 191 ==
LOC: EC 21:55 → 6SEL 03-19 01:13
PROVIDERS: ADMIT Family Medicine; ATTEND Family Medicine
DX: J44.1 Chronic obstructive pulmonary disease with (acute) exacerbation (principal); J96.11 Chronic respiratory failure with hypoxia; R47.01 Aphasia; I50.22 Chronic systolic (congestive) heart failure; K21.9 Gastro-esophageal reflux disease without esophagitis; D50.9 Iron deficiency anemia, unspecified; D72.829 Elevated white blood cell count, unspecified; E78.5 Hyperlipidemia, unspecified; F17.200 Nicotine dependence, unspecified, uncomplicated; F32.9 Major depressive disorder, single episode, unspecified; F41.9 Anxiety disorder, unspecified; H40.9 Unspecified glaucoma; I11.0 Hypertensive heart disease with heart failure; I25.10 Atherosclerotic heart disease of native coronary artery without angina pectoris; I25.2 Old myocardial infarction; I27.20 Pulmonary hypertension, unspecified; K90.0 Celiac disease; M81.0 Age-related osteoporosis without current pathological fracture; S06.6X9S Traumatic subarachnoid hemorrhage with loss of consciousness of unspecified duration, sequela; V49.9XXS Car occupant (driver) (passenger) injured in unspecified traffic accident, sequela; T38.0X5A Adverse effect of glucocorticoids and synthetic analogues, initial encounter; R47.1 Dysarthria and anarthria; R13.10 Dysphagia, unspecified; Z79.02 Long term (current) use of antithrombotics/antiplatelets; Z79.51 Long term (current) use of inhaled steroids; Z79.82 Long term (current) use of aspirin; Z82.49 Family history of ischemic heart disease and other diseases of the circulatory system; Z83.3 Family history of diabetes mellitus; Z85.3 Personal history of malignant neoplasm of breast; Z87.820 Personal history of traumatic brain injury; Z92.3 Personal history of irradiation; Z95.1 Presence of aortocoronary bypass graft; Z99.81 Dependence on supplemental oxygen; Z95.828 Presence of other vascular implants and grafts; Z95.5 Presence of coronary angioplasty implant and graft; Z83.2 Family history of diseases of the blood and blood-forming organs and certain disorders involving the immune mechanism; G89.29 Other chronic pain; M25.532 Pain in left wrist; I25.5 Ischemic cardiomyopathy; Z87.01 Personal history of pneumonia (recurrent)
CPT/HCPCS: 36415; 71046; 80053; 82550; 82553; 82803; 83735; 83880; 84484; 85025; 85610; 85730; 87040; 93005; 94640; 94660; 94760; 96365; 96366; 99285

== ENCOUNTER 2018-03-20 09:06 | Inpatient (IN) | payer OTHER ==
[2018-03-20] MEDS ORDERED: MAGNESIUM SULFATE-D5W PMX 1 GM in DEXTROSE/WATER 1 100ML.BAG IVPB STA (09:15)
[2018-03-20] MEDS ORDERED: methylPREDNISolone SOD SUCCI 125 MG/2 ML VIAL IV STA (09:15)
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
[2018-03-20 09:57] LABS: ALT 77 U/L (9-52); AST 73 U/L (14-36); Albumin 3.4 g/dL (3.5-5.0); Alkaline Phosphatase 119 U/L (38-126); Anion Gap 9 mmol/L; Blood Urea Nitrogen 27 mg/dL (7-17); Calcium 8.4 mg/dL (8.4-10.2); Carbon Dioxide 29 mmol/L (22-30); Chloride 101 mmol/L (98-107); Glucose 120 mg/dL (74-99); Magnesium 2.2 mg/dL (1.6-2.3); Potassium 4.2 mmol/L (3.5-5.1); Sodium 139 mmol/L (137-145); Total Bilirubin 0.3 mg/dL (0.2-1.3)
[2018-03-20 10:00] LABS: Prothrombin Time 9.9 sec (9.0-12.0)
[2018-03-20 10:14] LABS: Anisocytosis Slight; Basophils % (A) 0 %; Eosinophils % (A) 0 %; HCT 27.5 % (34.0-46.0); HGB 8.7 gm/dL (11.4-16.0); Hypochromasia Marked; Lymphocytes # (A) 0.8 k/uL (1.0-4.8); Lymphocytes % (A) 5 %; MCHC 31.5 g/dL (31.0-37.0); MCV 76.1 fL (80.0-100.0); Mean Platelet Volume 6.5; Microcytosis Slight; Monocytes # (A) 1.1 k/uL (0-1.0); Monocytes % (A) 7 %; Neutrophils # (A) 13.9 k/uL (1.3-7.7); Neutrophils % (A) 87 %; Platelet Count 351 k/uL (150-450); RBC 3.62 m/uL (3.80-5.40); RDW 17.7 % (11.5-15.5); WBC 16.1 k/uL (3.8-10.6)
[2018-03-20 10:36] LABS: Partial Thromboplastin Time 21.2 sec (22.0-30.0)
--- NOTE | 2018-03-20 10:36 | XR ---
EXAMINATION TYPE: XR chest 2V DATE OF EXAM: 03/20/2018 COMPARISON: 03/18/2018 INDICATION: Difficulty breathing TECHNIQUE: Frontal and lateral views of the chest are obtained. FINDINGS: The heart size is normal. The pulmonary vasculature is normal. Mild infiltrate is at the right base. This appears stable. Electronic device overlies left chest. Pos tsurgical sternotomy wires are in the midline.. IMPRESSION: 1. There is a mild infiltrate at the right base. Exam is essentially stable from comparison
[2018-03-20 11:01] LABS: Creatine Kinase MB 9.1 ng/mL (0.0-2.4)
[2018-03-20 11:05] LABS: Troponin I 0.26 ng/mL (0.000-0.034)
[2018-03-20] MEDS ORDERED: FUROSEMIDE 10 MG/ML 4 ML VIAL IV STA (12:35)
[2018-03-20] MEDS ORDERED: HEPARIN SODIUM,PORCINE 5,000 UNIT/ML 1 ML VIAL IV ONE (12:40)
[2018-03-20] MEDS ORDERED: ALPRAZolam 0.25 MG TAB PO PRN (12:43)
[2018-03-20] MEDS ORDERED: HEPARIN SOD,PORK IN 0.45% NACL 25,000 UNIT in 0.45% NACL 1 500ML.BAG IV SCH (12:45)
[2018-03-20] MEDS ORDERED: SELENIUM SULFIDE 2.5% TOPICAL SCH (12:45)
[2018-03-20] MEDS: SODIUM CHLORIDE 0.9% 1,000 ML IV SCH (14:05)
[2018-03-20] MEDS: GABAPENTIN 400 MG CAP PO SCH ×3 (15:06→20:52)
[2018-03-20] MEDS: ALBUTEROL NEBULIZED 2.5 MG/3 ML INHALATION PRN ×2 (15:18→20:50)
[2018-03-20 16:57] LABS: Troponin I 0.183 ng/mL (0.000-0.034)
[2018-03-20] MEDS: LATANOPROST 0.005% OPHTH DROPS 2.5 ML BTL LEFT EYE SCH (20:38)
[2018-03-20] MEDS: ATORVASTATIN 80 MG TAB PO SCH (20:39)
[2018-03-20] MEDS: LACOSAMIDE 50 MG TABLET PO SCH (20:39)
[2018-03-20] MEDS: methylPREDNISolone SOD SUCCI 125 MG/2 ML VIAL IV SCH (20:39)
[2018-03-20] MEDS: PROPRANOLOL 40 MG TAB PO SCH (20:39)
[2018-03-20] MEDS: NITROGLYCERIN OINT 1 INCH/GM PACKET TOPICAL SCH (20:39)
[2018-03-20] MEDS: guaiFENesin 600 MG TABLET.ER PO SCH (20:39)
[2018-03-20] MEDS: FUROSEMIDE 10 MG/ML 4 ML VIAL IV SCH (20:39)
[2018-03-20] MEDS: PRIMIDONE 50 MG TAB PO SCH ×2 (20:39→20:52)
[2018-03-20] MEDS: SYMBICORT 160-4.5 MCG INHALER INHALATION SCH (20:50)
[2018-03-20 21:51] LABS: Troponin I 0.163 ng/mL (0.000-0.034)
[2018-03-21] MEDS: FUROSEMIDE 10 MG/ML 4 ML VIAL IV SCH ×4 (01:02→23:37)
[2018-03-21] MEDS: NITROGLYCERIN OINT 1 INCH/GM PACKET TOPICAL SCH ×6 (01:02→23:44)
[2018-03-21] MEDS: methylPREDNISolone SOD SUCCI 125 MG/2 ML VIAL IV SCH ×5 (01:10→23:37)
[2018-03-21 02:28] LABS: Cholesterol 155 mg/dL (<200); HDL Cholesterol 73 mg/dL (40-60); LDL Cholesterol,Calculated 63 mg/dL (0-99); Triglycerides 95 mg/dL (<150)
[2018-03-21 06:23] LABS: Glucose,Whole Blood 159 mg/dL (75-99)
[2018-03-21] MEDS: INSULIN ASPART 100 UNIT/ML 1 ML 10 ML VIAL SQ SCH ×4 (06:26→22:11)
[2018-03-21] MEDS ORDERED: HEPARIN SODIUM,PORCINE 5,000 UNIT/ML 1 ML VIAL IV STA (07:31)
[2018-03-21] MEDS: SYMBICORT 160-4.5 MCG INHALER INHALATION SCH ×2 (07:32→20:25)
[2018-03-21] MEDS: ALBUTEROL NEBULIZED 2.5 MG/3 ML INHALATION PRN ×3 (07:33→20:26)
[2018-03-21] MEDS: ASPIRIN 325 MG TAB PO SCH (07:48)
[2018-03-21] MEDS: CLOPIDOGREL 75 MG TAB PO SCH (07:48)
[2018-03-21] MEDS: CYANOCOBALAMIN 500 MCG TAB PO SCH (07:48)
[2018-03-21] MEDS: AZITHROMYCIN 500 MG TAB PO SCH (07:48)
[2018-03-21] MEDS: DONEPEZIL 5 MG TAB PO SCH (07:49)
[2018-03-21] MEDS: guaiFENesin 600 MG TABLET.ER PO SCH ×2 (07:49→22:03)
[2018-03-21] MEDS: PARoxetine 20 MG TAB PO SCH (07:49)
[2018-03-21] MEDS: METOPROLOL SUCCINATE (ER) 50 MG TAB.ER.24H PO SCH (07:49)
[2018-03-21] MEDS: FLUDROCORTISONE 0.1 MG TAB PO SCH (07:49)
[2018-03-21] MEDS: PROPRANOLOL 40 MG TAB PO SCH ×2 (07:50→22:03)
[2018-03-21] MEDS: SPIRONOLACTONE 25 MG TAB PO SCH (07:50)
[2018-03-21] MEDS: PRIMIDONE 50 MG TAB PO SCH ×3 (07:50→22:03)
[2018-03-21] MEDS: LACOSAMIDE 50 MG TABLET PO SCH ×2 (07:56→22:02)
[2018-03-21] MEDS: GABAPENTIN 400 MG CAP PO SCH ×4 (07:56→22:02)
[2018-03-21] MEDS: FLUTICASONE 50MCG/SPRAY NASAL 16GM EA NOSTRIL SCH (09:22)
--- NOTE | 2018-03-21 10:45 | CONS ---
CONSULTATION CHIEF COMPLAINT: Elevated troponin. Kasandra is a 62-year-old lady with history of traumatic brain injury, coronary artery disease, status post CABG, status post angioplasty, mitral and tricuspid valve repair, history of PAD, hypertension, dyslipidemia, ischemic cardiomyopathy, severe pulmonary hypertension, COPD who presented to hospital with symptoms of shortness of breath. The patient was discharged home 2 days ago. Cardiology had been consulted because of elevated BNP and troponins that were in the [place]. I cannot obtain any meaningful information from the patient. I reviewed old records and documentation in the ER. Initially when the EMS arrived, her O2 sats were low. Subsequently her O2 sats have improved. At the time of my evaluation this morning, she is lying comfortably in bed and does not have any complaints. PAST MEDICAL HISTORY: Past medical history is significant for COPD, CAD, status post CABG, prior angioplasty, valvular heart disease. MEDICATIONS: Medications at home included Florinef 0.1 mg daily, Toprol XL 50 daily, Inderal, prednisone, Requip, Plavix, Pepcid, Neurontin, Ventolin, Xanax, Symbicort, Exelon, Aldactone. ALLERGIES: Allergic to QUINOLONES. FAMILY HISTORY, SOCIAL HISTORY AND REVIEW OF SYSTEMS: I am unable to obtain from the patient. PHYSICAL EXAMINATION: On exam, patient is afebrile. Heart rate is 66 beats per minute. Blood pressure is 120/65, respiratory is 18. Chest exam reveals occasional rhonchi and diminished air entry bilaterally. Heart exam reveals first and second heart sounds. Systolic murmur at the left lower sternal border. Abdomen is soft. Examination of the extremities did not reveal any edema. Peripheral pulses are felt. LABS: Labs show a potassium of 4.2, creatinine is 0.8. Troponins are mildly elevated at 0.2, 0.1 and 0.1. Hemoglobin is low at 8.7, platelet count is 357. LDL cholesterol is low at 65. AST, ALT are elevated. EKG shows sinus rhythm with poor R-wave progression and nonspecific ST-T wave changes. Most recent echocardiogram was a month ago. It showed moderate LV dysfunction with an ejection fraction of 35% to 40% and moderate pulmonary hypertension. ASSESSMENT: 1. Elevated troponin is of no clear clinical significance. Troponins were elevated even at last admission. 2. Acute exacerbation of chronic systolic heart failure. 3. Chronic obstructive pulmonary disease. 4. Coronary artery disease, status post coronary artery bypass grafting. PLAN: I am going to stop the IV heparin. Continue with the beta blockers, IV diuretics, statins and nitrates. MMODL / IJN: [id number] /
[2018-03-21 12:06] LABS: Glucose,Whole Blood 178 mg/dL (75-99)
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
[2018-03-21] MEDS: SODIUM CHLORIDE 0.9% 1,000 ML IV SCH (12:33)
[2018-03-21 16:58] LABS: Glucose,Whole Blood 150 mg/dL (75-99)
[2018-03-21 21:12] LABS: Glucose,Whole Blood 160 mg/dL (75-99)
[2018-03-21] MEDS: HEPARIN SODIUM,PORCINE 5,000 UNIT/ML 1 ML VIAL SQ SCH (22:03)
[2018-03-21] MEDS: ATORVASTATIN 80 MG TAB PO SCH (22:03)
[2018-03-21] MEDS: LATANOPROST 0.005% OPHTH DROPS 2.5 ML BTL LEFT EYE SCH (23:07)
[2018-03-22 06:29] LABS: Glucose,Whole Blood 229 mg/dL (75-99)
[2018-03-22] MEDS: NITROGLYCERIN OINT 1 INCH/GM PACKET TOPICAL SCH (06:57)
[2018-03-22] MEDS: INSULIN ASPART 100 UNIT/ML 1 ML 10 ML VIAL SQ SCH ×4 (06:58→21:29)
[2018-03-22] MEDS: methylPREDNISolone SOD SUCCI 125 MG/2 ML VIAL IV SCH ×3 (06:58→17:12)
[2018-03-22] MEDS: SYMBICORT 160-4.5 MCG INHALER INHALATION SCH ×2 (09:00→19:25)
[2018-03-22] MEDS: FUROSEMIDE 10 MG/ML 4 ML VIAL IV SCH (10:57)
[2018-03-22] MEDS: AZITHROMYCIN 500 MG TAB PO SCH (11:07)
[2018-03-22] MEDS: ASPIRIN 325 MG TAB PO SCH (11:07)
[2018-03-22] MEDS: DONEPEZIL 5 MG TAB PO SCH (11:08)
[2018-03-22] MEDS: CLOPIDOGREL 75 MG TAB PO SCH (11:08)
[2018-03-22] MEDS: METOPROLOL SUCCINATE (ER) 50 MG TAB.ER.24H PO SCH (11:08)
[2018-03-22] MEDS: PARoxetine 20 MG TAB PO SCH (11:08)
[2018-03-22] MEDS: guaiFENesin 600 MG TABLET.ER PO SCH ×2 (11:08→21:30)
[2018-03-22] MEDS: FLUDROCORTISONE 0.1 MG TAB PO SCH (11:08)
[2018-03-22] MEDS: FLUTICASONE 50MCG/SPRAY NASAL 16GM EA NOSTRIL SCH (11:08)
[2018-03-22] MEDS: CYANOCOBALAMIN 500 MCG TAB PO SCH (11:08)
[2018-03-22] MEDS: SPIRONOLACTONE 25 MG TAB PO SCH (11:09)
[2018-03-22] MEDS: PRIMIDONE 50 MG TAB PO SCH ×3 (11:09→21:29)
[2018-03-22] MEDS: PROPRANOLOL 40 MG TAB PO SCH ×2 (11:09→21:29)
[2018-03-22] MEDS: GABAPENTIN 400 MG CAP PO SCH ×4 (11:15→21:44)
[2018-03-22] MEDS: LACOSAMIDE 50 MG TABLET PO SCH ×2 (11:15→21:29)
[2018-03-22] MEDS: SODIUM CHLORIDE 0.9% 1,000 ML IV SCH (11:17)
[2018-03-22] MEDS: HEPARIN SODIUM,PORCINE 5,000 UNIT/ML 1 ML VIAL SQ SCH ×2 (11:17→21:30)
[2018-03-22 12:03] LABS: Glucose,Whole Blood 122 mg/dL (75-99)
--- NOTE | 2018-03-22 12:33 | P.PN ---
Subjective Progress Note Date: 03/22/18 This is a 62-year-old female with history of traumatic brain injury, coronary artery disease with prior bypass surgery, prior PCI, mitral and tricuspid valve repair, PAD, hypertension, hyperlipidemia, ischemic cardiomyopathy, severe pulmonary hypertension, COPD, who presented to the hospital mainly with symptoms of shortness of breath. Cardiology was requested to see the patient because of abnormal BNP level. Patient was seen in consultation by Dr. Shaw yesterday. Her weight is down 1 kg today. Blood pressure 110/50 with a heart rate in the 70s, 93% on 2 L of oxygen. All lab data this morning is pending. Objective - Vital Signs Vital signs: Vital Signs Temp 98.7 F 03/22/18 08:00 Pulse 71 03/22/18 11:19 Resp 18 03/22/18 11:20 BP 111/52 03/22/18 11:19 Pulse Ox 93 L 03/22/18 11:19 Intake & Output 03/21/18 03/22/18 03/22/18 18:59 06:59 18:59 Intake Total 414.836 240 Output Total 60 Balance 414.836 180 Weight 45 kg 44 kg Intake: Intake, IV Titration 174.836 Amount Heparin Sod,Pork in 0.45% 174.836 NaCl 25,000 unit In 0.45 % NaCl 1 500ml.bag @ 12 UNITS/KG/HR 14.15 mls/hr IV .Q24H AGUILA Rx#: [id number] Sodium Chloride 0.9% 1, 0 000 ml @ 20 mls/hr IV . Q24H AGUILA Rx#:[id number] Oral 240 240 Output: Urine 60 Other: Voiding Method Bedside Commode Bedside Commode Bedside Commode Diaper Diaper Diaper # Voids 2 2 - Exam PHYSICAL EXAMINATION: GENERAL: 62-year-old female in no acute distress at the time of my examination HEENT: Head is atraumatic, normocephalic. Pupils equal, round. Sclera anicteric. Conjunctiva are clear. Mucous membranes of the mouth are moist. Neck is supple. There is no elevated jugular venous pressure. No carotid bruit is heard. HEART EXAMINATION: Heart S1 and S2 systolic murmur is heard. CHEST EXAMINATION: Lungs reveal occasional rhonchi with diminished air entry to the bases bilaterally. ABDOMEN: Soft, nontender. Bowel sounds are heard. No organomegaly noted. EXTREMITIES: 2+ peripheral pulses with no evidence of peripheral edema and no calf tenderness noted. NEUROLOGIC [patient is sleepy - Labs CBC & Chem 7: 03/20/18 09:35 03/20/18 09:35 Labs: Abnormal Lab Results - Last 24 Hours (Table) 03/21/18 03/21/18 03/22/18 Range/Units 16:57 21:10 06:27 POC Glucose (mg/dL) 150 H 160 H 229 H (75-99) mg/dL 03/22/18 Range/Units 11:30 POC Glucose (mg/dL) 122 H (75-99) mg/dL Assessment and Plan Plan: Assessment and plan #1 systolic congestive heart failure acute on chronic #2 known history of coronary artery disease with prior bypass surgery #3 abnormal troponin, not secondary to acute coronary syndrome likely secondary to supply and demand mismatch. Patient was noted to have abnormality in troponins on past admissions. #4 COPD exacerbation #5 known history of coronary artery disease with prior bypass surgery Plan We will continue current dose of PO Lasix. Decrease aspirin to 81 mg daily. Patient was also noted to be on 2 beta blockers, we will discontinue one of those. Continue the rest of the patient's medications. DNP note has been reviewed, I agree with a documented findings and plan of care. Patient was seen and examined.
[2018-03-22 12:48] LABS: Anisocytosis Slight; HCT 34.8 % (34.0-46.0); HGB 10.5 gm/dL (11.4-16.0); Hypochromasia Moderate; MCH 22.8 pg (25.0-35.0); MCHC 30.2 g/dL (31.0-37.0); MCV 75.6 fL (80.0-100.0); Mean Platelet Volume 6.3; Microcytosis Slight; Platelet Count 500 k/uL (150-450); RBC 4.61 m/uL (3.80-5.40); RDW 17.7 % (11.5-15.5); WBC 18.7 k/uL (3.8-10.6)
[2018-03-22] MEDS: ALBUTEROL NEBULIZED 2.5 MG/3 ML INHALATION PRN ×3 (12:48→19:25)
[2018-03-22 13:27] LABS: Anion Gap 9 mmol/L; Blood Urea Nitrogen 48 mg/dL (7-17); Calcium 9.3 mg/dL (8.4-10.2); Carbon Dioxide 36 mmol/L (22-30); Chloride 94 mmol/L (98-107); Glucose 126 mg/dL (74-99); Sodium 139 mmol/L (137-145)
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
[2018-03-22 16:40] LABS: Glucose,Whole Blood 151 mg/dL (75-99)
[2018-03-22] MEDS: FUROSEMIDE 20 MG TAB PO SCH (17:12)
[2018-03-22 21:11] LABS: Glucose,Whole Blood 212 mg/dL (75-99)
[2018-03-22] MEDS: ATORVASTATIN 80 MG TAB PO SCH (21:29)
[2018-03-22] MEDS: LATANOPROST 0.005% OPHTH DROPS 2.5 ML BTL LEFT EYE SCH (21:33)
[2018-03-23] MEDS: methylPREDNISolone SOD SUCCI 125 MG/2 ML VIAL IV SCH ×5 (00:32→22:50)
[2018-03-23 05:58] LABS: Glucose,Whole Blood 156 mg/dL (75-99)
[2018-03-23] MEDS: INSULIN ASPART 100 UNIT/ML 1 ML 10 ML VIAL SQ SCH ×4 (07:00→21:02)
[2018-03-23] MEDS: ALBUTEROL NEBULIZED 2.5 MG/3 ML INHALATION PRN ×3 (08:19→19:11)
[2018-03-23] MEDS: SYMBICORT 160-4.5 MCG INHALER INHALATION SCH ×2 (08:19→19:11)
[2018-03-23] MEDS: AZITHROMYCIN 500 MG TAB PO SCH (08:26)
[2018-03-23] MEDS: CLOPIDOGREL 75 MG TAB PO SCH (08:26)
[2018-03-23] MEDS: ASPIRIN 81 MG PO SCH (08:26)
[2018-03-23] MEDS: CYANOCOBALAMIN 500 MCG TAB PO SCH (08:26)
[2018-03-23] MEDS: FLUTICASONE 50MCG/SPRAY NASAL 16GM EA NOSTRIL SCH (08:29)
[2018-03-23] MEDS: PROPRANOLOL 40 MG TAB PO SCH ×2 (08:30→20:56)
[2018-03-23] MEDS: PRIMIDONE 50 MG TAB PO SCH ×3 (08:30→20:56)
[2018-03-23] MEDS: FLUDROCORTISONE 0.1 MG TAB PO SCH (08:30)
[2018-03-23] MEDS: DONEPEZIL 5 MG TAB PO SCH (08:30)
[2018-03-23] MEDS: ISOSORBIDE MONONITRATE ER 30 MG TAB.ER.24H PO SCH (08:30)
[2018-03-23] MEDS: FUROSEMIDE 20 MG TAB PO SCH ×2 (08:30→16:57)
[2018-03-23] MEDS: guaiFENesin 600 MG TABLET.ER PO SCH ×2 (08:30→20:56)
[2018-03-23] MEDS: PARoxetine 20 MG TAB PO SCH (08:30)
[2018-03-23] MEDS: HEPARIN SODIUM,PORCINE 5,000 UNIT/ML 1 ML VIAL SQ SCH ×2 (08:30→20:56)
[2018-03-23] MEDS: SPIRONOLACTONE 25 MG TAB PO SCH (08:31)
[2018-03-23] MEDS: GABAPENTIN 400 MG CAP PO SCH ×4 (08:49→21:20)
[2018-03-23] MEDS: LACOSAMIDE 50 MG TABLET PO SCH ×2 (08:49→21:20)
[2018-03-23 11:46] LABS: Glucose,Whole Blood 198 mg/dL (75-99)
[2018-03-23 12:32] LABS: Anion Gap 11 mmol/L; Blood Urea Nitrogen 56 mg/dL (7-17); Calcium 9.7 mg/dL (8.4-10.2); Carbon Dioxide 32 mmol/L (22-30); Chloride 95 mmol/L (98-107); Glucose 189 mg/dL (74-99); Potassium 3.7 mmol/L (3.5-5.1); Sodium 138 mmol/L (137-145)
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
[2018-03-23 16:53] LABS: Glucose,Whole Blood 164 mg/dL (75-99)
[2018-03-23] MEDS: SODIUM CHLORIDE 0.9% 1,000 ML IV SCH (16:57)
[2018-03-23 20:25] LABS: Glucose,Whole Blood 185 mg/dL (75-99)
[2018-03-23] MEDS: ATORVASTATIN 80 MG TAB PO SCH (20:56)
[2018-03-23] MEDS: LATANOPROST 0.005% OPHTH DROPS 2.5 ML BTL LEFT EYE SCH (21:03)
[2018-03-24] MEDS: methylPREDNISolone SOD SUCCI 125 MG/2 ML VIAL IV SCH (05:24)
[2018-03-24] MEDS: ALBUTEROL NEBULIZED 2.5 MG/3 ML INHALATION PRN ×4 (07:24→19:44)
[2018-03-24] MEDS: SYMBICORT 160-4.5 MCG INHALER INHALATION SCH ×2 (07:24→19:44)
[2018-03-24 07:35] LABS: Glucose,Whole Blood 153 mg/dL (75-99)
[2018-03-24] MEDS: HEPARIN SODIUM,PORCINE 5,000 UNIT/ML 1 ML VIAL SQ SCH ×2 (08:30→21:03)
[2018-03-24] MEDS: INSULIN ASPART 100 UNIT/ML 1 ML 10 ML VIAL SQ SCH ×4 (08:30→21:03)
[2018-03-24] MEDS: LACOSAMIDE 50 MG TABLET PO SCH ×2 (08:31→21:04)
[2018-03-24] MEDS: PRIMIDONE 50 MG TAB PO SCH ×3 (08:31→21:04)
[2018-03-24] MEDS: CYANOCOBALAMIN 500 MCG TAB PO SCH (08:31)
[2018-03-24] MEDS: CLOPIDOGREL 75 MG TAB PO SCH (08:31)
[2018-03-24] MEDS: ASPIRIN 81 MG PO SCH (08:31)
[2018-03-24] MEDS: PROPRANOLOL 40 MG TAB PO SCH ×2 (08:31→21:03)
[2018-03-24] MEDS: GABAPENTIN 400 MG CAP PO SCH ×4 (08:31→21:03)
[2018-03-24] MEDS: AZITHROMYCIN 500 MG TAB PO SCH (08:32)
[2018-03-24] MEDS: FLUDROCORTISONE 0.1 MG TAB PO SCH (08:32)
[2018-03-24] MEDS: guaiFENesin 600 MG TABLET.ER PO SCH ×2 (08:33→21:04)
[2018-03-24] MEDS: DONEPEZIL 5 MG TAB PO SCH (08:33)
[2018-03-24] MEDS: ISOSORBIDE MONONITRATE ER 30 MG TAB.ER.24H PO SCH (08:33)
[2018-03-24] MEDS: FUROSEMIDE 20 MG TAB PO SCH ×2 (08:33→16:58)
[2018-03-24] MEDS: PARoxetine 20 MG TAB PO SCH (08:33)
[2018-03-24] MEDS: FLUTICASONE 50MCG/SPRAY NASAL 16GM EA NOSTRIL SCH (08:53)
[2018-03-24] MEDS: SPIRONOLACTONE 25 MG TAB PO SCH (08:54)
[2018-03-24 09:05] VITALS: BMI 17.8
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
[2018-03-24 12:22] LABS: Glucose,Whole Blood 149 mg/dL (75-99)
[2018-03-24] MEDS: SODIUM CHLORIDE 0.9% 1,000 ML IV SCH (12:42)
[2018-03-24] MEDS: NYSTATIN 100,000 UNIT/ML SUSP 500,000 UNIT/5 ML CUP PO SCH ×3 (12:42→21:03)
[2018-03-24 16:53] LABS: Glucose,Whole Blood 157 mg/dL (75-99)
[2018-03-24] MEDS: methylPREDNISolone SOD SUCCI 40 MG/ML 1 ML VIAL IV SCH ×2 (16:58→23:35)
[2018-03-24 20:22] LABS: Glucose,Whole Blood 175 mg/dL (75-99)
[2018-03-24] MEDS: ATORVASTATIN 80 MG TAB PO SCH (21:03)
[2018-03-24] MEDS: LATANOPROST 0.005% OPHTH DROPS 2.5 ML BTL LEFT EYE SCH (21:10)
[2018-03-25 06:57] LABS: Glucose,Whole Blood 210 mg/dL (75-99)
[2018-03-25] MEDS: ALBUTEROL NEBULIZED 2.5 MG/3 ML INHALATION PRN ×4 (08:32→19:22)
[2018-03-25] MEDS: SYMBICORT 160-4.5 MCG INHALER INHALATION SCH ×2 (08:33→19:22)
[2018-03-25] MEDS: INSULIN ASPART 100 UNIT/ML 1 ML 10 ML VIAL SQ SCH ×4 (08:35→21:40)
[2018-03-25] MEDS: methylPREDNISolone SOD SUCCI 40 MG/ML 1 ML VIAL IV SCH ×3 (08:37→23:31)
[2018-03-25] MEDS: ASPIRIN 81 MG PO SCH (08:37)
[2018-03-25] MEDS: AZITHROMYCIN 500 MG TAB PO SCH (08:37)
[2018-03-25] MEDS: FLUTICASONE 50MCG/SPRAY NASAL 16GM EA NOSTRIL SCH (08:38)
[2018-03-25] MEDS: CYANOCOBALAMIN 500 MCG TAB PO SCH (08:38)
[2018-03-25] MEDS: CLOPIDOGREL 75 MG TAB PO SCH (08:38)
[2018-03-25] MEDS: FLUDROCORTISONE 0.1 MG TAB PO SCH (08:38)
[2018-03-25] MEDS: DONEPEZIL 5 MG TAB PO SCH (08:38)
[2018-03-25] MEDS: ISOSORBIDE MONONITRATE ER 30 MG TAB.ER.24H PO SCH (08:39)
[2018-03-25] MEDS: LACOSAMIDE 50 MG TABLET PO SCH ×2 (08:39→21:41)
[2018-03-25] MEDS: FUROSEMIDE 20 MG TAB PO SCH ×2 (08:39→15:45)
[2018-03-25] MEDS: GABAPENTIN 400 MG CAP PO SCH ×4 (08:39→21:41)
[2018-03-25] MEDS: HEPARIN SODIUM,PORCINE 5,000 UNIT/ML 1 ML VIAL SQ SCH ×2 (08:39→21:41)
[2018-03-25] MEDS: PRIMIDONE 50 MG TAB PO SCH ×3 (08:40→21:41)
[2018-03-25] MEDS: SPIRONOLACTONE 25 MG TAB PO SCH (08:40)
[2018-03-25] MEDS: PARoxetine 20 MG TAB PO SCH (08:40)
[2018-03-25] MEDS: NYSTATIN 100,000 UNIT/ML SUSP 500,000 UNIT/5 ML CUP PO SCH ×4 (08:40→21:40)
[2018-03-25] MEDS: PROPRANOLOL 40 MG TAB PO SCH ×2 (08:40→21:42)
[2018-03-25] MEDS: guaiFENesin 600 MG TABLET.ER PO SCH ×2 (08:51→21:41)
[2018-03-25 11:49] LABS: Glucose,Whole Blood 135 mg/dL (75-99)
[2018-03-25] MEDS: SODIUM CHLORIDE 0.9% 1,000 ML IV SCH (12:09)
[2018-03-25 17:12] LABS: Glucose,Whole Blood 261 mg/dL (75-99)
[2018-03-25 20:27] LABS: Glucose,Whole Blood 214 mg/dL (75-99)
[2018-03-25] MEDS: ATORVASTATIN 80 MG TAB PO SCH (21:41)
[2018-03-25] MEDS: LATANOPROST 0.005% OPHTH DROPS 2.5 ML BTL LEFT EYE SCH (21:41)
[2018-03-26] MEDS: HEPARIN SODIUM,PORCINE 5,000 UNIT/ML 1 ML VIAL SQ SCH ×3 (04:52→22:00)
[2018-03-26] MEDS: SYMBICORT 160-4.5 MCG INHALER INHALATION SCH ×2 (05:38→20:40)
[2018-03-26] MEDS: ALBUTEROL NEBULIZED 2.5 MG/3 ML INHALATION PRN ×3 (05:38→20:40)
[2018-03-26 06:02] LABS: Glucose,Whole Blood 142 mg/dL (75-99)
[2018-03-26] MEDS: INSULIN ASPART 100 UNIT/ML 1 ML 10 ML VIAL SQ SCH ×4 (07:15→22:51)
[2018-03-26] MEDS: methylPREDNISolone SOD SUCCI 40 MG/ML 1 ML VIAL IV SCH ×4 (07:16→23:34)
[2018-03-26] MEDS: GABAPENTIN 400 MG CAP PO SCH ×4 (09:11→22:00)
[2018-03-26] MEDS: PRIMIDONE 50 MG TAB PO SCH ×3 (09:12→22:00)
[2018-03-26] MEDS: FUROSEMIDE 20 MG TAB PO SCH ×2 (09:12→16:09)
[2018-03-26] MEDS: CLOPIDOGREL 75 MG TAB PO SCH (09:12)
[2018-03-26] MEDS: ASPIRIN 81 MG PO SCH (09:12)
[2018-03-26] MEDS: CYANOCOBALAMIN 500 MCG TAB PO SCH (09:12)
[2018-03-26] MEDS: SPIRONOLACTONE 25 MG TAB PO SCH (09:12)
[2018-03-26] MEDS: ISOSORBIDE MONONITRATE ER 30 MG TAB.ER.24H PO SCH (09:12)
[2018-03-26] MEDS: NYSTATIN 100,000 UNIT/ML SUSP 500,000 UNIT/5 ML CUP PO SCH ×4 (09:12→22:00)
[2018-03-26] MEDS: guaiFENesin 600 MG TABLET.ER PO SCH ×2 (09:12→22:00)
[2018-03-26] MEDS: AZITHROMYCIN 500 MG TAB PO SCH (09:13)
[2018-03-26] MEDS: PARoxetine 20 MG TAB PO SCH (09:13)
[2018-03-26] MEDS: FLUTICASONE 50MCG/SPRAY NASAL 16GM EA NOSTRIL SCH (09:13)
[2018-03-26] MEDS: PROPRANOLOL 40 MG TAB PO SCH (09:13)
[2018-03-26] MEDS: DONEPEZIL 5 MG TAB PO SCH (09:13)
[2018-03-26] MEDS: FLUDROCORTISONE 0.1 MG TAB PO SCH (09:13)
[2018-03-26] MEDS: LACOSAMIDE 50 MG TABLET PO SCH ×2 (10:18→22:00)
--- NOTE | 2018-03-26 11:20 | P.PN ---
Subjective Progress Note Date: 03/26/18 Principal diagnosis: Dyspnea, elevated troponins female well-known to our practice with a recent history of traumatic brain injury coronary artery disease with noted prior bypass plantar valve and tricuspid valve repairs hyperlipidemia and ischemic cardiomyopathy severe pulmonary hypertension COPD patient presented mainly complaining of shortness of breath. Patient's current vital signs are stable she's afebrile and in much better spirits. Patient is awake alert today, discussed at length with patient and dear friend and family members the need for this patient undergo intensive physical, occupational, and especially speech and cognitive therapy early in the process in order to effect significant improvement in communication skills as well as endurance Objective - Vital Signs Vital signs: Vital Signs Temp 98.6 F 03/26/18 06:50 Pulse 70 03/26/18 06:50 Resp 12 03/26/18 06:50 BP 109/88 03/26/18 06:50 Pulse Ox 93 L 03/26/18 06:50 Intake & Output 03/25/18 03/26/18 03/26/18 18:59 06:59 18:59 Intake Total 960 240 Output Total 60 Balance 900 240 Weight 44.2 kg 44.2 kg Intake: Oral 960 240 Output: Urine 60 Other: Voiding Method Incontinent Incontinent # Voids 1 2 - Exam General: [Patient awake, alert and oriented times 3. Patient in no acute distress.] HEENT: [PERRL. EOMI. No pharyngeal erythema or exudate.] Neck: [No adenopathy.] Cardiac: [Heart regular in rate and rhythm. No S3. No S4. No clicks, rubs. No murmur.] Midline surgical scar Lungs: [Clear to auscultation bilaterally, diminished breath sounds bilaterally Abdomen: [No mass. No organomegaly. Bowel sounds presnt and normoactive in all 4 quadrants.] Extremes: [No edema no cyanosis no claudication normal pulses] : [] Musculoskeletal: [No joint erythema, edema or tenderness.] Skin: [No rash.] Neurologic: [No lateralizing deficits. CN II - XII grossly intact.] Lymphatic: [No adenopathy.] - Labs CBC & Chem 7: 03/22/18 12:31 03/23/18 11:11 Labs: Abnormal Lab Results - Last 24 Hours (Table) 03/25/18 03/25/18 03/25/18 Range/Units 11:44 17:06 20:26 POC Glucose (mg/dL) 135 H 261 H 214 H (75-99) mg/dL 03/26/18 Range/Units 06:01 POC Glucose (mg/dL) 142 H (75-99) mg/dL Assessment and Plan (1) Acute exacerbation of chronic obstructive airways disease Current Visit: Yes Status: Acute Code(s): J44.1 - CHRONIC OBSTRUCTIVE PULMONARY DISEASE W (ACUTE) EXACERBATION SNOMED Code(s): 020139699 (2) Congestive heart failure Current Visit: Yes Status: Acute Code(s): I50.9 - HEART FAILURE, UNSPECIFIED SNOMED Code(s): 29114976 (3) Acute exacerbation of CHF (congestive heart failure) Current Visit: No Status: Acute Code(s): I50.9 - HEART FAILURE, UNSPECIFIED SNOMED Code(s): 31955701 (4) CAD (coronary artery disease) Current Visit: No Status: Acute Code(s): I25.10 - ATHSCL HEART DISEASE OF [place] CORONARY ARTERY W/O ANG PCTRS SNOMED Code(s): 94227039 Plan: Heparin was stopped Continue beta blockers, diuretics, statins and nitrates Cardiology consult was obtained Patient may be transferred from stepdown unit to general medical floor and will be considering inpatient rehab placement for improving endurance and cognitive therapy with speech Discussed at length with both nursing and family member and mental health social worker Julio Cesar, patient would strongly benefit from intensive inpatient physical, occupational, and cognitive speech therapy The patient needs to be in environment where she is unable to and is not exposed to cigarette smoke she would benefit from a nicotine patch and eliminate or all exposure to cigarette smoke of any kind as her still smokes And she demands that her go purchase and bringing home cigarettes for her, she has stopped eating the smoking she has lost weight that she should not be losing, she is no longer ambulatory ambulating well she is following Plan I would and clorazepate the family to encourage her to remain inpatient therapy and encourage her to refrain from smoking and encourage her to to improve her dietary intake, this all was expressed and discussed with both the patient and [ones present Time with Patient: Greater than 30
[2018-03-26 11:56] LABS: Glucose,Whole Blood 135 mg/dL (75-99)
[2018-03-26] MEDS: SODIUM CHLORIDE 0.9% 1,000 ML IV SCH (12:17)
[2018-03-26 17:05] LABS: Glucose,Whole Blood 260 mg/dL (75-99)
[2018-03-26 20:07] LABS: Glucose,Whole Blood 256 mg/dL (75-99)
[2018-03-26] MEDS: ATORVASTATIN 80 MG TAB PO SCH (22:00)
[2018-03-26] MEDS: LATANOPROST 0.005% OPHTH DROPS 2.5 ML BTL LEFT EYE SCH (22:11)
[2018-03-26 22:26] LABS: Glucose,Whole Blood 145 mg/dL (75-99)
[2018-03-27] MEDS: PROPRANOLOL 40 MG TAB PO SCH ×2 (04:26→08:18)
[2018-03-27 07:22] LABS: Glucose,Whole Blood 161 mg/dL (75-99)
[2018-03-27] MEDS: LACOSAMIDE 50 MG TABLET PO SCH (08:16)
[2018-03-27] MEDS: ASPIRIN 81 MG PO SCH (08:16)
[2018-03-27] MEDS: HEPARIN SODIUM,PORCINE 5,000 UNIT/ML 1 ML VIAL SQ SCH (08:16)
[2018-03-27] MEDS: GABAPENTIN 400 MG CAP PO SCH ×3 (08:16→17:01)
[2018-03-27] MEDS: guaiFENesin 600 MG TABLET.ER PO SCH (08:17)
[2018-03-27] MEDS: CYANOCOBALAMIN 500 MCG TAB PO SCH (08:17)
[2018-03-27] MEDS: PRIMIDONE 50 MG TAB PO SCH ×2 (08:17→16:57)
[2018-03-27] MEDS: FUROSEMIDE 20 MG TAB PO SCH ×2 (08:17→17:01)
[2018-03-27] MEDS: CLOPIDOGREL 75 MG TAB PO SCH (08:17)
[2018-03-27] MEDS: FLUDROCORTISONE 0.1 MG TAB PO SCH (08:18)
[2018-03-27] MEDS: PARoxetine 20 MG TAB PO SCH (08:18)
[2018-03-27] MEDS: INSULIN ASPART 100 UNIT/ML 1 ML 10 ML VIAL SQ SCH ×2 (08:19→12:43)
[2018-03-27] MEDS: NYSTATIN 100,000 UNIT/ML SUSP 500,000 UNIT/5 ML CUP PO SCH ×3 (08:25→17:01)
[2018-03-27] MEDS: methylPREDNISolone SOD SUCCI 40 MG/ML 1 ML VIAL IV SCH ×2 (08:29→16:56)
[2018-03-27] MEDS: DONEPEZIL 5 MG TAB PO SCH (08:36)
[2018-03-27 09:15] VITALS: RESP 16
[2018-03-27 09:17] VITALS: TEMP 98
[2018-03-27] MEDS: SYMBICORT 160-4.5 MCG INHALER INHALATION SCH (09:22)
[2018-03-27] MEDS: ALBUTEROL NEBULIZED 2.5 MG/3 ML INHALATION PRN ×2 (09:23→16:46)
[2018-03-27 11:48] LABS: Glucose,Whole Blood 150 mg/dL (75-99)
[2018-03-27] MEDS: AZITHROMYCIN 500 MG TAB PO SCH (12:01)
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
[2018-03-27 15:04] VITALS: BP 96/67
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
[2018-03-27 16:59] VITALS: PULSE 75
[2018-03-27 17:02] LABS: Glucose,Whole Blood 342 mg/dL (75-99)
[2018-03-27] MEDS: FLUTICASONE 50MCG/SPRAY NASAL 16GM EA NOSTRIL SCH (17:02)
[2018-03-27] MEDS: SPIRONOLACTONE 25 MG TAB PO SCH (17:02)
[2018-03-27] MEDS: SODIUM CHLORIDE 0.9% 1,000 ML IV SCH (17:02)
[2018-03-27] MEDS: ISOSORBIDE MONONITRATE ER 30 MG TAB.ER.24H PO SCH (17:02)
[2018-03-27] MEDS ORDERED: PROPRANOLOL 40 MG TAB PO SCH (21:00)
[2018-03-28] MEDS ORDERED: AZITHROMYCIN 500 MG TAB PO SCH (09:00)
[2018-03-28] MEDS ORDERED: DONEPEZIL 5 MG TAB PO SCH (09:00)
[2018-03-28] MEDS ORDERED: PARoxetine 20 MG TAB PO SCH (09:00)
[2018-03-28] MEDS ORDERED: FLUDROCORTISONE 0.1 MG TAB PO SCH (09:00)
== END 2018-03-27 17:50 | DRG 190 ==
LOC: EC 09:06 → 6SEL 12:41 → 3SUR 03-23 10:42 → 4SSUR 03-26 07:46
PROVIDERS: ADMIT Family Medicine; ATTEND Family Medicine
DX: J44.1 Chronic obstructive pulmonary disease with (acute) exacerbation (principal); I50.23 Acute on chronic systolic (congestive) heart failure; J96.11 Chronic respiratory failure with hypoxia; B37.0 Candidal stomatitis; I27.20 Pulmonary hypertension, unspecified; R13.10 Dysphagia, unspecified; I11.0 Hypertensive heart disease with heart failure; I69.020 Aphasia following nontraumatic subarachnoid hemorrhage; R40.2142 Coma scale, eyes open, spontaneous, at arrival to emergency department; R40.2362 Coma scale, best motor response, obeys commands, at arrival to emergency department; R40.2252 Coma scale, best verbal response, oriented, at arrival to emergency department; K90.0 Celiac disease; I25.10 Atherosclerotic heart disease of native coronary artery without angina pectoris; K21.9 Gastro-esophageal reflux disease without esophagitis; E78.5 Hyperlipidemia, unspecified; I25.2 Old myocardial infarction; I25.5 Ischemic cardiomyopathy; D50.9 Iron deficiency anemia, unspecified; M81.0 Age-related osteoporosis without current pathological fracture; F41.1 Generalized anxiety disorder; F32.9 Major depressive disorder, single episode, unspecified; G89.29 Other chronic pain; M25.532 Pain in left wrist; H40.9 Unspecified glaucoma; R77.8 Other specified abnormalities of plasma proteins; F17.210 Nicotine dependence, cigarettes, uncomplicated; Z71.6 Tobacco abuse counseling; Z93.1 Gastrostomy status; Z99.81 Dependence on supplemental oxygen; Z79.82 Long term (current) use of aspirin; Z79.51 Long term (current) use of inhaled steroids; Z79.02 Long term (current) use of antithrombotics/antiplatelets; Z79.899 Other long term (current) drug therapy; Z87.820 Personal history of traumatic brain injury; Z87.01 Personal history of pneumonia (recurrent); Z85.3 Personal history of malignant neoplasm of breast; Z92.3 Personal history of irradiation; Z95.820 Peripheral vascular angioplasty status with implants and grafts; Z95.1 Presence of aortocoronary bypass graft; Z95.5 Presence of coronary angioplasty implant and graft; Z88.1 Allergy status to other antibiotic agents; Z88.8 Allergy status to other drugs, medicaments and biological substances; Z82.49 Family history of ischemic heart disease and other diseases of the circulatory system; Z83.3 Family history of diabetes mellitus; Z83.2 Family history of diseases of the blood and blood-forming organs and certain disorders involving the immune mechanism
CPT/HCPCS: 36415; 71046; 80048; 80053; 80061; 82550; 82553; 83735; 83880; 84484; 85025; 85027; 85610; 85730; 93005; 94640; 94760; 96365; 96366; 96367; 96375; 96376; 99291

== ENCOUNTER 2018-03-31 09:57 | Inpatient (IN) | payer OTHER ==
[2018-03-31] MEDS ORDERED: IPRATROPIUM-ALBUTEROL 3 ML NEB INHALATION STA (10:11)
[2018-03-31] MEDS ORDERED: methylPREDNISolone SOD SUCCI 125 MG/2 ML VIAL IV STA (10:11)
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
[2018-03-31 10:46] LABS: Anisocytosis Moderate; Basophils # (A) 0.1 k/uL (0-0.2); Basophils % (A) 0 %; Eosinophils # (A) 0.1 k/uL (0-0.7); Eosinophils % (A) 0 %; Hypochromasia Marked; Lymphocytes # (A) 1.7 k/uL (1.0-4.8); Lymphocytes % (A) 4 %; MCH 24.1 pg (25.0-35.0); MCHC 31.1 g/dL (31.0-37.0); MCV 77.6 fL (80.0-100.0); Mean Platelet Volume 6.9; Microcytosis Slight; Monocytes # (A) 2.2 k/uL (0-1.0); Monocytes % (A) 6 %; Neutrophils # (A) 35.1 k/uL (1.3-7.7); Neutrophils % (A) 89 %; Platelet Count 461 k/uL (150-450); Poikilocytosis Slight; RBC 2.34 m/uL (3.80-5.40); WBC 39.6 k/uL (3.8-10.6)
[2018-03-31 10:51] LABS: ALT 37 U/L (9-52); AST 23 U/L (14-36); Albumin 3.3 g/dL (3.5-5.0); Alkaline Phosphatase 64 U/L (38-126); Anion Gap 5 mmol/L; Blood Urea Nitrogen 47 mg/dL (7-17); Calcium 8.9 mg/dL (8.4-10.2); Carbon Dioxide 37 mmol/L (22-30); Chloride 99 mmol/L (98-107); Glucose 125 mg/dL (74-99); Magnesium 2.5 mg/dL (1.6-2.3); Sodium 141 mmol/L (137-145); Total Bilirubin 0.3 mg/dL (0.2-1.3); Total Protein 5.8 g/dL (6.3-8.2)
[2018-03-31 10:53] LABS: HGB 5.7 gm/dL (11.4-16.0)
[2018-03-31 10:54] LABS: HCT 18.2 % (34.0-46.0)
[2018-03-31] MEDS ORDERED: PANTOPRAZOLE 40 MG/10 ML VIAL IVP STA (10:58)
[2018-03-31 11:16] LABS: Polychromasia Present
[2018-03-31 11:17] LABS: Prothrombin Time 9.6 sec (9.0-12.0)
--- NOTE | 2018-03-31 11:18 | XR ---
EXAMINATION TYPE: XR chest 2V DATE OF EXAM: 03/31/2018 COMPARISON: 08/01/2017 HISTORY: Chest pain TECHNIQUE: Frontal and lateral views of the chest are obtained. FINDINGS: Patchy density right lower lobe may reflect developing infiltrate. Correlate clinically. No evidence for pneumothorax. No pleural effusion. The cardiac silhouette size is within normal limits. The osseous structures are grossly intact. IMPRESSION: 1. Patchy density right lower lobe may reflect developing infiltrate. Correlate clinically.
[2018-03-31 11:40] LABS: Partial Thromboplastin Time 19.8 sec (22.0-30.0)
[2018-03-31] MEDS ORDERED: VANCOMYCIN IV PER PHARMACY 1 EACH MISC MISCELLANE PRN (12:57)
[2018-03-31] MEDS ORDERED: AZITHROMYCIN 500 MG in SODIUM CHLORIDE 0.9% 250 ML IVPB STA (12:59)
[2018-03-31] MEDS ORDERED: CEFEPIME 2 GM in SODIUM CHLORIDE 0.9% 50 ML IVPB STA (12:59)
[2018-03-31] MEDS ORDERED: ACETAMINOPHEN IV (For NPO) 680 MG in EMPTY BAG 1 BAG IVPB ONE (13:00)
[2018-03-31 13:03] LABS: Appearance,Urine Clear (Clear); Bilirubin,Urine Negative (Negative); Blood,Urine Small (Negative); Color,Urine Yellow; Glucose,Urine (UA) Negative (Negative); Ketones,Urine Negative (Negative); Leukocyte Esterase,Urine Negative (Negative); Mucus,Urine Rare /hpf; Nitrite,Urine Negative (Negative); PH, Urine 6.5 (5.0-8.0); Protein,Urine Trace (Negative); RBC,Urine 8 /hpf (0-5); Specific Gravity,Urine 1.018 (1.001-1.035); Squamous Epithelial Cell,Urine <1 /hpf (0-4); Urobilinogen,Urine <2.0 mg/dL (<2.0); WBC,Urine 3 /hpf (0-5)
[2018-03-31] MEDS ORDERED: VANCOMYCIN 1,000 MG in SODIUM CHLORIDE 0.9% 250 ML IVPB ONE (14:00)
[2018-03-31] MEDS ORDERED: NALOXONE 0.4 MG/ML 1 ML VIAL IV PRN (14:25)
[2018-03-31] MEDS: SODIUM CHLORIDE 0.9% 1,000 ML IV SCH ×2 (14:46→16:16)
[2018-03-31 14:58] LABS: ABG Base Excess 13.1 mmol/L; ABG HCO3 37 mmol/L (21-25); ABG Oxygen Saturation 98.1 % (94-97); ABG PCO2 49 mmHg (35-45); ABG PH 7.48 (7.35-7.45); ABG PO2 77 mmHg (83-108); ABG TCO2 38 mmol/L (19-24)
[2018-03-31] MEDS ORDERED: SODIUM CHLORIDE 0.9% 500 ML 500 ML IV ONE (15:22)
[2018-03-31] MEDS: GABAPENTIN 400 MG CAP PO SCH ×2 (19:10→21:04)
[2018-03-31] MEDS: PRIMIDONE 50 MG TAB PO SCH ×2 (19:10→21:04)
[2018-03-31] MEDS: NYSTATIN 100,000 UNIT/ML SUSP 500,000 UNIT/5 ML CUP PO SCH ×2 (19:10→21:04)
[2018-03-31] MEDS: LATANOPROST 0.005% OPHTH DROPS 2.5 ML BTL LEFT EYE SCH (21:04)
[2018-03-31] MEDS: PANTOPRAZOLE 40 MG/10 ML VIAL IVP SCH (21:04)
[2018-03-31] MEDS: ATORVASTATIN 80 MG TAB PO SCH (21:04)
[2018-03-31] MEDS: VANCOMYCIN 750 MG in SODIUM CHLORIDE 0.9% 250 ML IVPB SCH (21:05)
[2018-03-31] MEDS: LACOSAMIDE 50 MG TABLET PO SCH (21:15)
[2018-03-31 21:16] LABS: ALT 31 U/L (9-52); AST 37 U/L (14-36); Albumin 3.1 g/dL (3.5-5.0); Alkaline Phosphatase 34 U/L (38-126); Anion Gap 6 mmol/L; Blood Urea Nitrogen 39 mg/dL (7-17); Calcium 8.1 mg/dL (8.4-10.2); Carbon Dioxide 29 mmol/L (22-30); Chloride 106 mmol/L (98-107); Glucose 160 mg/dL (74-99); Potassium 5.5 mmol/L (3.5-5.1); Sodium 141 mmol/L (137-145); Total Bilirubin 0.9 mg/dL (0.2-1.3); Total Protein 5.8 g/dL (6.3-8.2)
[2018-03-31 21:46] LABS: Anisocytosis Slight; Basophils % (A) 0 %; Eosinophils % (A) 0 %; HCT 27.2 % (34.0-46.0); Hypochromasia Marked; Lymphocytes # (A) 0.7 k/uL (1.0-4.8); Lymphocytes % (A) 3 %; MCH 26.9 pg (25.0-35.0); MCHC 32.8 g/dL (31.0-37.0); MCV 82.1 fL (80.0-100.0); Monocytes # (A) 0.9 k/uL (0-1.0); Monocytes % (A) 4 %; Neutrophils # (A) 23.3 k/uL (1.3-7.7); Neutrophils % (A) 93 %; Platelet Count 360 k/uL (150-450); Poikilocytosis Marked; RBC 3.32 m/uL (3.80-5.40); RDW 18.2 % (11.5-15.5); WBC 25.1 k/uL (3.8-10.6)
[2018-03-31 21:51] LABS: HGB 8.9 gm/dL (11.4-16.0)
[2018-04-01 06:53] LABS: Anisocytosis Slight; Basophils % (A) 0 %; Eosinophils # (A) 0.1 k/uL (0-0.7); Eosinophils % (A) 0 %; HCT 23.5 % (34.0-46.0); Hypochromasia Moderate; Lymphocytes # (A) 1.4 k/uL (1.0-4.8); Lymphocytes % (A) 7 %; MCH 25.6 pg (25.0-35.0); MCHC 31.3 g/dL (31.0-37.0); MCV 81.6 fL (80.0-100.0); Microcytosis Slight; Monocytes # (A) 1.1 k/uL (0-1.0); Monocytes % (A) 6 %; Neutrophils % (A) 85 %; Platelet Count 337 k/uL (150-450); Poikilocytosis Marked; RBC 2.88 m/uL (3.80-5.40); RDW 18.6 % (11.5-15.5); WBC 18.7 k/uL (3.8-10.6)
[2018-04-01 07:01] LABS: HGB 7.4 gm/dL (11.4-16.0)
[2018-04-01 07:14] LABS: ALT 28 U/L (9-52); AST 19 U/L (14-36); Albumin 2.5 g/dL (3.5-5.0); Alkaline Phosphatase 48 U/L (38-126); Anion Gap 4 mmol/L; Blood Urea Nitrogen 29 mg/dL (7-17); Carbon Dioxide 30 mmol/L (22-30); Chloride 109 mmol/L (98-107); Glucose 96 mg/dL (74-99); Sodium 143 mmol/L (137-145); Total Bilirubin 0.5 mg/dL (0.2-1.3); Total Protein 4.9 g/dL (6.3-8.2)
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
[2018-04-01] MEDS: VANCOMYCIN 750 MG in SODIUM CHLORIDE 0.9% 250 ML IVPB SCH ×2 (08:46→21:21)
[2018-04-01] MEDS: FLUTICASONE 50MCG/SPRAY NASAL 16GM EA NOSTRIL SCH (08:47)
[2018-04-01] MEDS: NYSTATIN 100,000 UNIT/ML SUSP 500,000 UNIT/5 ML CUP PO SCH ×4 (08:48→21:21)
[2018-04-01] MEDS: PANTOPRAZOLE 40 MG/10 ML VIAL IVP SCH ×2 (08:48→21:21)
[2018-04-01] MEDS: GABAPENTIN 400 MG CAP PO SCH ×4 (08:49→21:21)
[2018-04-01] MEDS: guaiFENesin 600 MG TABLET.ER PO PRN (08:49)
[2018-04-01] MEDS: SODIUM CHLORIDE 0.9% 1,000 ML IV SCH ×2 (08:50→17:05)
[2018-04-01] MEDS: PRIMIDONE 50 MG TAB PO SCH ×3 (08:50→21:21)
[2018-04-01] MEDS: PARoxetine 20 MG TAB PO SCH (08:50)
[2018-04-01] MEDS: LACOSAMIDE 50 MG TABLET PO SCH ×2 (08:55→21:21)
[2018-04-01] MEDS ORDERED: IV FLUID CONTINUATION 1,000 ML IV ONE (10:23)
[2018-04-01] MEDS ORDERED: PROPOFOL 10 MG/ML 20 ML VIAL IV ONE (10:25)
[2018-04-01] MEDS ORDERED: LIDOCAINE 1% INJ 10MG/ML (20 ML MDV) ONE (10:25)
--- NOTE | 2018-04-01 10:59 | P.PCN ---
Date of Procedure: 04/01/18 Description of Procedure: BRIEF HISTORY: Patient is a 62-year-old, pleasant, female with a known medical history of dysarthria secondary to traumatic brain injury and multiple other comorbidities who presented to the hospital with signs and symptoms of anemia. The patient was subsequently noted to have multiple dark melanotic stools with a hemoglobin in the sevens on presentation decrease from her baseline the patient is on Plavix therapy at home. She has previously had PEG tube placement. EGD was performed for further evaluation. PROCEDURE PERFORMED: Esophagogastroduodenoscopy with biopsy. PREOPERATIVE DIAGNOSIS: Anemia from acute blood loss, melena. ESTIMATED BLOOD LOSS: Minimal. IV sedation per anesthesia. PROCEDURE: After informed consent was obtained, the patient was brought into the endoscopy unit. IV sedation was administered by Anesthesia under continuous monitoring. Initially the Olympus GIF-190 video endoscope was inserted into the mouth. Esophagus intubated without any difficulty. It was gradually advanced into the stomach and duodenum and carefully examined. The bulb and the second part of the duodenum appeared erythematous with evidence of Malina gland hyperplasia and suggestion of duodenitis. 2 small superficial nonbleeding ulcers were noted in the distal bulb proximal to the sweep. The ulcers did not have any stigmata which were high risk and were not actively bleeding. Biopsies were taken of both the ulcers as well as the duodenal tissue. The scope at this time was withdrawn to the stomach, adequately insufflated with air , and upon careful examination, mucosa of the antrum, body, cardia and the fundus appeared normal. A well placed PEG tube bumper was noted in the body of the stomach from a prior endoscopy. The scope was then withdrawn into the esophagus. The patient had a small hiatal hernia The GE junction was located at 41 cm from the incisors. The esophagus appeared normal. There were no erosions or ulcerations seen and the patient tolerated the procedure well. IMPRESSION: 1. No evidence of active GI bleed. 2. Superficial duodenal ulcers without evidence of high risk stigmata or active bleeding, biopsied. 3. Duodenitis, biopsied. 4. Small hiatal hernia. 5. PEG tube bumper noted in body of stomach. RECOMMENDATIONS: The findings of this examination were discussed with the patient in the nursing staff. Okay for clear liquids today. Continue IV Protonix twice a day today and transitioned to oral tomorrow. If patient is nothing by mouth secondary to prior TBI would recommend PPI which is compatible with PEG tube such as lansoprazole liquid or would continue IV PPI if not available. Continue to monitor hemoglobin and hematocrit and transfuse as needed.
[2018-04-01] MEDS: FLUDROCORTISONE 0.1 MG TAB PO SCH (11:27)
[2018-04-01 12:50] LABS: Anisocytosis Slight; Basophils # (A) 0.1 k/uL (0-0.2); Basophils % (A) 0 %; Eosinophils # (A) 0.1 k/uL (0-0.7); Eosinophils % (A) 1 %; HCT 25.3 % (34.0-46.0); HGB 8.6 gm/dL (11.4-16.0); Hypochromasia Marked; Lymphocytes # (A) 1.6 k/uL (1.0-4.8); Lymphocytes % (A) 7 %; MCH 27.9 pg (25.0-35.0); MCHC 33.9 g/dL (31.0-37.0); MCV 82.3 fL (80.0-100.0); Mean Platelet Volume 7.4; Microcytosis Slight; Monocytes # (A) 1.6 k/uL (0-1.0); Monocytes % (A) 7 %; Neutrophils # (A) 18.4 k/uL (1.3-7.7); Neutrophils % (A) 83 %; Platelet Count 363 k/uL (150-450); Poikilocytosis Marked; RBC 3.07 m/uL (3.80-5.40); RDW 18.9 % (11.5-15.5); WBC 22.1 k/uL (3.8-10.6)
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
[2018-04-01 18:36] LABS: Anisocytosis Slight; Basophils % (A) 0 %; Eosinophils # (A) 0.1 k/uL (0-0.7); Eosinophils % (A) 1 %; HCT 27.2 % (34.0-46.0); HGB 8.8 gm/dL (11.4-16.0); Hypochromasia Marked; Lymphocytes % (A) 10 %; MCH 26.8 pg (25.0-35.0); MCHC 32.5 g/dL (31.0-37.0); MCV 82.6 fL (80.0-100.0); Mean Platelet Volume 7.3; Monocytes # (A) 1.5 k/uL (0-1.0); Monocytes % (A) 7 %; Neutrophils # (A) 16.9 k/uL (1.3-7.7); Neutrophils % (A) 81 %; Platelet Count 335 k/uL (150-450); Poikilocytosis Marked; RDW 18.6 % (11.5-15.5); WBC 20.7 k/uL (3.8-10.6)
[2018-04-01] MEDS: SYMBICORT 160-4.5 MCG INHALER INHALATION SCH (20:39)
[2018-04-01] MEDS: ATORVASTATIN 80 MG TAB PO SCH (21:21)
[2018-04-01] MEDS: LATANOPROST 0.005% OPHTH DROPS 2.5 ML BTL LEFT EYE SCH (21:21)
[2018-04-01] MEDS: IPRATROPIUM-ALBUTEROL 3 ML NEB INHALATION PRN (22:26)
[2018-04-02 00:12] LABS: Anisocytosis Slight; Basophils % (A) 0 %; Eosinophils # (A) 0.1 k/uL (0-0.7); Eosinophils % (A) 1 %; HCT 24.2 % (34.0-46.0); HGB 7.7 gm/dL (11.4-16.0); Hypochromasia Marked; Lymphocytes # (A) 1.8 k/uL (1.0-4.8); Lymphocytes % (A) 11 %; MCH 25.9 pg (25.0-35.0); MCHC 31.7 g/dL (31.0-37.0); MCV 81.8 fL (80.0-100.0); Mean Platelet Volume 7.3; Microcytosis Slight; Monocytes # (A) 1.2 k/uL (0-1.0); Monocytes % (A) 7 %; Neutrophils # (A) 12.6 k/uL (1.3-7.7); Neutrophils % (A) 79 %; Platelet Count 343 k/uL (150-450); Poikilocytosis Marked; RBC 2.96 m/uL (3.80-5.40); RDW 18.7 % (11.5-15.5)
[2018-04-02] MEDS ORDERED: VANCOMYCIN TROUGH DUE 1 EACH MISC MISCELLANE ONE (08:00)
[2018-04-02] MEDS: SODIUM CHLORIDE 0.9% 1,000 ML IV SCH ×2 (08:03→09:45)
[2018-04-02] MEDS: PRIMIDONE 50 MG TAB PO SCH ×3 (08:04→22:20)
[2018-04-02] MEDS: VANCOMYCIN 750 MG in SODIUM CHLORIDE 0.9% 250 ML IVPB SCH (08:04)
[2018-04-02] MEDS: guaiFENesin 600 MG TABLET.ER PO PRN (08:04)
[2018-04-02] MEDS: GABAPENTIN 400 MG CAP PO SCH ×4 (08:04→22:20)
[2018-04-02] MEDS: NYSTATIN 100,000 UNIT/ML SUSP 500,000 UNIT/5 ML CUP PO SCH ×4 (08:04→22:20)
[2018-04-02] MEDS: PANTOPRAZOLE 40 MG/10 ML VIAL IVP SCH ×2 (08:04→22:20)
[2018-04-02] MEDS: PARoxetine 20 MG TAB PO SCH (08:04)
[2018-04-02 08:09] LABS: Anisocytosis Slight; Basophils % (A) 0 %; Eosinophils # (A) 0.1 k/uL (0-0.7); Eosinophils % (A) 1 %; HCT 25.8 % (34.0-46.0); HGB 8.1 gm/dL (11.4-16.0); Hypochromasia Marked; Lymphocytes # (A) 1.6 k/uL (1.0-4.8); Lymphocytes % (A) 9 %; MCH 26.4 pg (25.0-35.0); MCHC 31.4 g/dL (31.0-37.0); Mean Platelet Volume 6.7; Monocytes # (A) 0.9 k/uL (0-1.0); Monocytes % (A) 5 %; Neutrophils # (A) 15.6 k/uL (1.3-7.7); Neutrophils % (A) 85 %; Platelet Count 393 k/uL (150-450); Poikilocytosis Marked; RBC 3.07 m/uL (3.80-5.40); RDW 18.9 % (11.5-15.5); WBC 18.4 k/uL (3.8-10.6)
[2018-04-02 08:13] LABS: Anion Gap 4 mmol/L; Blood Urea Nitrogen 12 mg/dL (7-17); Calcium 8.2 mg/dL (8.4-10.2); Carbon Dioxide 31 mmol/L (22-30); Chloride 103 mmol/L (98-107); Glucose 86 mg/dL (74-99); Magnesium 1.8 mg/dL (1.6-2.3); Potassium 2.9 mmol/L (3.5-5.1); Sodium 138 mmol/L (137-145)
[2018-04-02] MEDS: IPRATROPIUM-ALBUTEROL 3 ML NEB INHALATION PRN ×2 (09:21→21:01)
[2018-04-02] MEDS: SYMBICORT 160-4.5 MCG INHALER INHALATION SCH ×2 (09:21→21:01)
[2018-04-02] MEDS: FLUDROCORTISONE 0.1 MG TAB PO SCH (09:44)
[2018-04-02] MEDS: FLUTICASONE 50MCG/SPRAY NASAL 16GM EA NOSTRIL SCH (09:44)
[2018-04-02] MEDS: LACOSAMIDE 50 MG TABLET PO SCH ×2 (09:44→22:20)
[2018-04-02] MEDS ORDERED: Potassium Replacement Protocol 1 EACH MISC MISCELLANE PRN (10:15)
[2018-04-02] MEDS: POTASSIUM CHLORIDE ER 20 MEQ TAB.ER PO SCH ×2 (11:23→12:15)
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
[2018-04-02 14:52] LABS: Anisocytosis Slight; Basophils % (A) 0 %; Eosinophils # (A) 0.2 k/uL (0-0.7); Eosinophils % (A) 1 %; HCT 26.9 % (34.0-46.0); HGB 8.8 gm/dL (11.4-16.0); Hypochromasia Marked; Lymphocytes # (A) 1.8 k/uL (1.0-4.8); Lymphocytes % (A) 9 %; MCH 26.7 pg (25.0-35.0); MCHC 32.6 g/dL (31.0-37.0); MCV 81.8 fL (80.0-100.0); Mean Platelet Volume 7.1; Microcytosis Slight; Monocytes # (A) 1.4 k/uL (0-1.0); Monocytes % (A) 7 %; Neutrophils # (A) 16.6 k/uL (1.3-7.7); Neutrophils % (A) 82 %; Platelet Count 384 k/uL (150-450); Poikilocytosis Marked; RBC 3.28 m/uL (3.80-5.40); RDW 18.8 % (11.5-15.5); WBC 20.3 k/uL (3.8-10.6)
[2018-04-02] MEDS: AMOXIC-POT CLAV 875-125MG 1 EACH TAB PO SCH ×2 (15:09→22:20)
[2018-04-02] MEDS: ATORVASTATIN 80 MG TAB PO SCH (22:20)
[2018-04-02] MEDS: LATANOPROST 0.005% OPHTH DROPS 2.5 ML BTL LEFT EYE SCH (22:20)
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
[2018-04-03] MEDS: SODIUM CHLORIDE 0.9% 1,000 ML IV SCH ×4 (06:51→23:02)
[2018-04-03 07:15] LABS: Anisocytosis Slight; Basophils % (A) 0 %; Eosinophils # (A) 0.1 k/uL (0-0.7); Eosinophils % (A) 1 %; HCT 24.9 % (34.0-46.0); HGB 7.9 gm/dL (11.4-16.0); Hypochromasia Moderate; Lymphocytes # (A) 1.8 k/uL (1.0-4.8); Lymphocytes % (A) 7 %; MCH 25.9 pg (25.0-35.0); MCHC 31.6 g/dL (31.0-37.0); MCV 81.9 fL (80.0-100.0); Mean Platelet Volume 7.1; Microcytosis Slight; Monocytes # (A) 1.1 k/uL (0-1.0); Monocytes % (A) 5 %; Neutrophils % (A) 87 %; Platelet Count 363 k/uL (150-450); Poikilocytosis Moderate; RBC 3.04 m/uL (3.80-5.40); RDW 19.3 % (11.5-15.5); WBC 24.2 k/uL (3.8-10.6)
[2018-04-03 07:27] LABS: Anion Gap 4 mmol/L; Blood Urea Nitrogen 9 mg/dL (7-17); Calcium 7.8 mg/dL (8.4-10.2); Carbon Dioxide 29 mmol/L (22-30); Chloride 106 mmol/L (98-107); Glucose 90 mg/dL (74-99); Potassium 3.5 mmol/L (3.5-5.1); Sodium 139 mmol/L (137-145)
[2018-04-03] MEDS: SYMBICORT 160-4.5 MCG INHALER INHALATION SCH ×2 (07:55→20:31)
[2018-04-03] MEDS: PARoxetine 20 MG TAB PO SCH (08:39)
[2018-04-03] MEDS: LACOSAMIDE 50 MG TABLET PO SCH ×2 (08:39→21:49)
[2018-04-03] MEDS: NYSTATIN 100,000 UNIT/ML SUSP 500,000 UNIT/5 ML CUP PO SCH ×4 (08:39→21:49)
[2018-04-03] MEDS: GABAPENTIN 400 MG CAP PO SCH ×4 (08:40→21:49)
[2018-04-03] MEDS: AMOXIC-POT CLAV 875-125MG 1 EACH TAB PO SCH ×2 (08:40→21:49)
[2018-04-03] MEDS: PRIMIDONE 50 MG TAB PO SCH ×3 (08:40→21:49)
[2018-04-03] MEDS: FLUTICASONE 50MCG/SPRAY NASAL 16GM EA NOSTRIL SCH (08:40)
[2018-04-03] MEDS: PANTOPRAZOLE 40 MG/10 ML VIAL IVP SCH ×2 (08:40→21:49)
[2018-04-03] MEDS: FLUDROCORTISONE 0.1 MG TAB PO SCH (11:48)
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
--- NOTE | 2018-04-03 16:48 | P.PN ---
Progress Note - Text Progress Note Date: 04/03/18 The patient's request and have her PEG tube removed. The patient was placed on the supine position on her bed. Gen. traction was placed in the PEG tube. The PEG tube was removed. Dressing was applied. Patient tolerated procedure well.
[2018-04-03] MEDS: ATORVASTATIN 80 MG TAB PO SCH (21:49)
[2018-04-03] MEDS: LATANOPROST 0.005% OPHTH DROPS 2.5 ML BTL LEFT EYE SCH (21:50)
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
[2018-04-04 07:14] LABS: Anisocytosis Slight; Basophils % (A) 0 %; Eosinophils # (A) 0.1 k/uL (0-0.7); Eosinophils % (A) 1 %; HCT 22.1 % (34.0-46.0); Hypochromasia Marked; Lymphocytes # (A) 1.3 k/uL (1.0-4.8); Lymphocytes % (A) 8 %; MCH 26.4 pg (25.0-35.0); MCHC 31.3 g/dL (31.0-37.0); MCV 84.3 fL (80.0-100.0); Mean Platelet Volume 7.2; Monocytes # (A) 1.1 k/uL (0-1.0); Monocytes % (A) 6 %; Neutrophils # (A) 14.3 k/uL (1.3-7.7); Neutrophils % (A) 84 %; Platelet Count 314 k/uL (150-450); Poikilocytosis Moderate; RBC 2.61 m/uL (3.80-5.40); RDW 19.4 % (11.5-15.5)
[2018-04-04 07:16] LABS: Anion Gap 6 mmol/L; Blood Urea Nitrogen 7 mg/dL (7-17); Calcium 7.5 mg/dL (8.4-10.2); Carbon Dioxide 28 mmol/L (22-30); Chloride 106 mmol/L (98-107); Glucose 93 mg/dL (74-99); Potassium 3.4 mmol/L (3.5-5.1); Sodium 140 mmol/L (137-145)
[2018-04-04 07:29] LABS: HGB 6.9 gm/dL (11.4-16.0)
[2018-04-04] MEDS ORDERED: POTASSIUM CHLORIDE ER 20 MEQ TAB.ER PO STA (08:35)
[2018-04-04] MEDS: SYMBICORT 160-4.5 MCG INHALER INHALATION SCH ×2 (08:42→20:39)
[2018-04-04] MEDS: IPRATROPIUM-ALBUTEROL 3 ML NEB INHALATION PRN ×2 (08:44→20:39)
[2018-04-04] MEDS: AMOXIC-POT CLAV 875-125MG 1 EACH TAB PO SCH ×2 (08:57→22:05)
[2018-04-04] MEDS: GABAPENTIN 400 MG CAP PO SCH ×5 (08:57→22:08)
[2018-04-04] MEDS: PARoxetine 20 MG TAB PO SCH (08:57)
[2018-04-04] MEDS: NYSTATIN 100,000 UNIT/ML SUSP 500,000 UNIT/5 ML CUP PO SCH ×4 (08:58→22:08)
[2018-04-04] MEDS: PANTOPRAZOLE 40 MG/10 ML VIAL IVP SCH ×2 (08:58→22:05)
[2018-04-04] MEDS: FLUTICASONE 50MCG/SPRAY NASAL 16GM EA NOSTRIL SCH (08:58)
[2018-04-04] MEDS: FLUDROCORTISONE 0.1 MG TAB PO SCH (08:58)
[2018-04-04] MEDS: PRIMIDONE 50 MG TAB PO SCH ×3 (08:58→22:05)
--- NOTE | 2018-04-04 10:15 | P.PN ---
Subjective Progress Note Date: 04/04/18 Principal diagnosis: Acute blood loss anemia duodenal ulcer Status post EGD superficial nonbleeding duodenal ulcer. Feels well this morning. Denies hematemesis hematochezia melena. PEG tube removed last night by general surgery. Tolerating diet. Hemoglobin decreased 6.9 this morning. Blood transfusion ordered. Objective - Vital Signs Vital signs: Vital Signs Temp 97.8 F 04/04/18 09:10 Pulse 102 H 04/04/18 09:10 Resp 18 04/04/18 09:10 BP 90/49 04/04/18 09:10 Pulse Ox 98 04/04/18 09:10 Intake & Output 04/03/18 04/04/18 04/04/18 18:59 06:59 18:59 Intake Total 1040 240 350 Balance 1040 240 350 Weight 47.5 kg Intake: IV 540 Invasive Line 4 40 Sodium Chloride 0.9% 1, 500 000 ml @ 40 mls/hr IV . Q24H AGUILA Rx#:[id number] Oral 500 240 350 Other: Voiding Method Diaper Diaper Diaper Incontinent Incontinent # Voids 1 # Bowel Movements 0 - Exam General appearance: The patient is alert, oriented, in no acute distress. HET: Head is normocephalic and atraumatic. Pupils are equal and reactive. Oropharynx is clear without lesions. Neck: Supple without lymphadenopathy. Trachea midline. Heart: S1 S2. Regular rate and rhythm. Lungs: No crackles or wheezes are heard. Abdomen: Soft, nontender, nondistended with bowel sounds. Previous PEG tube site with dressing no erythema bleeding hematoma. No peritoneal signs. No palpable organomegaly or masses. Extremities: Normal skin color and turgor. No cyanosis, rash, ulceration, clubbing, or edema. Radial and pedal pulses are 2/4 bilaterally. Neurological: No focal deficits. Strength and sensation are grossly intact. - Labs CBC & Chem 7: 04/04/18 05:57 04/04/18 05:57 Labs: Abnormal Lab Results - Last 24 Hours (Table) 04/04/18 04/04/18 Range/Units 05:57 05:57 WBC 17.0 H (3.8-10.6) k/uL RBC 2.61 L (3.80-5.40) m/uL Hgb 6.9 L* (11.4-16.0) gm/dL Hct 22.1 L (34.0-46.0) % RDW 19.4 H (11.5-15.5) % Neutrophils # 14.3 H (1.3-7.7) k/uL Monocytes # 1.1 H (0-1.0) k/uL Potassium 3.4 L (3.5-5.1) mmol/L Creatinine 0.45 L (0.52-1.04) mg/dL Calcium 7.5 L (8.4-10.2) mg/dL Microbiology - Last 24 Hours (Table) 03/31/18 10:18 Blood Culture - Preliminary Blood No Growth after 72 hours Assessment and Plan (1) Duodenal ulcer Narrative/Plan: Status post EGD with findings of superficial duodenal ulcer with no stigmata of bleeding. Hemoglobin decreased to 6.9 today without overt gastritis or bleeding hematemesis hematochezia or melena. Status post PEG tube removal last evening by general surgery wound site appears stable without pain, bleeding, drainage, or hematoma. Current Visit: Yes Status: Acute Code(s): K26.9 - DUODENAL ULCER, UNSP ACUTE OR CHRONIC, W/O HEMOR OR PERF SNOMED Code(s): 52411995 (2) Acute blood loss anemia Current Visit: Yes Status: Acute Code(s): D62 - ACUTE POSTHEMORRHAGIC ANEMIA SNOMED Code(s): 477279112 (3) GI bleed Current Visit: Yes Status: Acute Code(s): K92.2 - GASTROINTESTINAL HEMORRHAGE, UNSPECIFIED SNOMED Code(s): 94963913 Plan: 1. CBC monitoring. Continue Protonix 40 mg twice daily. Dysphagia diet. Transfuse 1 unit of blood. Assessment and plan of care discussed with Dr. Gandhi
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
--- NOTE | 2018-04-04 11:39 | P.PN ---
Progress Note - Text Progress Note Date: 04/04/18 Patient seen at the bedside sitting up in bed PEG tube per patient's request was removed at the bedside by Dr. ochoa yesterday. Currently has a dressing in place no drainage noted abdomen soft nontender. Reportedly is tolerating a diet. No further surgical recommendations at this time The above impression and plan of care have been discussed and directed by signing physician. Karin Estrada nurse practitioner acting as scribe for signing physician.
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
[2018-04-04] MEDS: LACOSAMIDE 50 MG TABLET PO SCH ×2 (16:09→22:05)
[2018-04-04 20:36] VITALS: RESP 22
[2018-04-04] MEDS: ATORVASTATIN 80 MG TAB PO SCH (22:05)
[2018-04-05 06:55] LABS: Anisocytosis Slight; Basophils % (A) 0 %; Eosinophils # (A) 0.1 k/uL (0-0.7); Eosinophils % (A) 1 %; HCT 26.1 % (34.0-46.0); HGB 8.1 gm/dL (11.4-16.0); Hypochromasia Marked; Lymphocytes # (A) 1.2 k/uL (1.0-4.8); Lymphocytes % (A) 8 %; MCH 26.4 pg (25.0-35.0); MCHC 31.3 g/dL (31.0-37.0); MCV 84.4 fL (80.0-100.0); Monocytes # (A) 0.8 k/uL (0-1.0); Monocytes % (A) 5 %; Neutrophils # (A) 12.3 k/uL (1.3-7.7); Neutrophils % (A) 84 %; Platelet Count 274 k/uL (150-450); Poikilocytosis Moderate; RBC 3.09 m/uL (3.80-5.40); RDW 18.6 % (11.5-15.5); WBC 14.6 k/uL (3.8-10.6)
[2018-04-05] MEDS: LATANOPROST 0.005% OPHTH DROPS 2.5 ML BTL LEFT EYE SCH (06:55)
[2018-04-05] MEDS: SODIUM CHLORIDE 0.9% 1,000 ML IV SCH (06:56)
[2018-04-05 07:12] LABS: Anion Gap 5 mmol/L; Blood Urea Nitrogen 7 mg/dL (7-17); Calcium 7.9 mg/dL (8.4-10.2); Carbon Dioxide 27 mmol/L (22-30); Chloride 105 mmol/L (98-107); Glucose 92 mg/dL (74-99); Potassium 3.6 mmol/L (3.5-5.1); Sodium 137 mmol/L (137-145)
[2018-04-05] MEDS: FLUDROCORTISONE 0.1 MG TAB PO SCH (08:46)
[2018-04-05] MEDS: PRIMIDONE 50 MG TAB PO SCH (08:47)
[2018-04-05] MEDS: LACOSAMIDE 50 MG TABLET PO SCH (08:47)
[2018-04-05] MEDS: NYSTATIN 100,000 UNIT/ML SUSP 500,000 UNIT/5 ML CUP PO SCH (08:47)
[2018-04-05] MEDS: PANTOPRAZOLE 40 MG/10 ML VIAL IVP SCH (08:47)
[2018-04-05] MEDS: GABAPENTIN 400 MG CAP PO SCH (08:47)
[2018-04-05] MEDS: AMOXIC-POT CLAV 875-125MG 1 EACH TAB PO SCH (08:47)
[2018-04-05] MEDS: PARoxetine 20 MG TAB PO SCH (08:47)
[2018-04-05] MEDS: SYMBICORT 160-4.5 MCG INHALER INHALATION SCH (08:52)
[2018-04-05] MEDS: IPRATROPIUM-ALBUTEROL 3 ML NEB INHALATION PRN (08:52)
[2018-04-05 08:58] VITALS: BP 103/56; TEMP 98.5
[2018-04-05 09:03] VITALS: PULSE 100
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
--- NOTE | 2018-04-05 11:30 | P.PN ---
Subjective Progress Note Date: 04/05/18 Principal diagnosis: Acute blood loss anemia duodenal ulcer Status post EGD superficial nonbleeding duodenal ulcer. Feels well this morning. Denies hematemesis hematochezia melena. PEG tube removed 2 days ago. Tolerating diet. Hemoglobin 8.1. Received 1 unit of blood yesterday. Objective - Vital Signs Vital signs: Vital Signs Temp 98.5 F 04/05/18 08:54 Pulse 100 04/05/18 09:02 Resp 22 04/05/18 08:54 BP 103/56 04/05/18 08:54 Pulse Ox 96 04/05/18 08:54 Intake & Output 04/04/18 04/05/18 04/05/18 18:59 06:59 18:59 Intake Total 1210 350 Balance 1210 350 Weight 47.4 kg Intake: Oral 900 350 Blood Product 310 Rc As-1 Unit 310 [id number] Other: Voiding Method Diaper Diaper Diaper Incontinent Incontinent Incontinent # Voids 2 1 # Bowel Movements 1 - Exam General appearance: The patient is alert, oriented, in no acute distress. HET: Head is normocephalic and atraumatic. Pupils are equal and reactive. Oropharynx is clear without lesions. Neck: Supple without lymphadenopathy. Trachea midline. Heart: S1 S2. Regular rate and rhythm. Lungs: No crackles or wheezes are heard. Abdomen: Soft, nontender, nondistended with bowel sounds. Previous PEG tube site with dressing no erythema bleeding hematoma. No peritoneal signs. No palpable organomegaly or masses. Extremities: Normal skin color and turgor. No cyanosis, rash, ulceration, clubbing, or edema. Radial and pedal pulses are 2/4 bilaterally. Neurological: No focal deficits. Strength and sensation are grossly intact. - Labs CBC & Chem 7: 04/05/18 06:28 04/05/18 06:28 Labs: Abnormal Lab Results - Last 24 Hours (Table) 04/04/18 04/05/18 04/05/18 Range/Units 08:55 06:28 06:28 WBC 14.6 H (3.8-10.6) k/uL RBC 3.09 L (3.80-5.40) m/uL Hgb 8.1 L (11.4-16.0) gm/dL Hct 26.1 L (34.0-46.0) % RDW 18.6 H (11.5-15.5) % Neutrophils # 12.3 H (1.3-7.7) k/uL Creatinine 0.45 L (0.52-1.04) mg/dL Calcium 7.9 L (8.4-10.2) mg/dL Crossmatch See Detail Microbiology - Last 24 Hours (Table) 03/31/18 10:18 Blood Culture - Preliminary Blood No Growth after 96 hours Assessment and Plan (1) Duodenal ulcer Narrative/Plan: Status post EGD with findings of superficial duodenal ulcer with no stigmata of bleeding. Hemoglobin decreased to 6.9 today without overt gastritis or bleeding hematemesis hematochezia or melena. Status post PEG tube removal last evening by general surgery wound site appears stable without pain, bleeding, drainage, or hematoma. Current Visit: Yes Status: Acute Code(s): K26.9 - DUODENAL ULCER, UNSP ACUTE OR CHRONIC, W/O HEMOR OR PERF SNOMED Code(s): 24244136 (2) Acute blood loss anemia Current Visit: Yes Status: Acute Code(s): D62 - ACUTE POSTHEMORRHAGIC ANEMIA SNOMED Code(s): 484916266 (3) GI bleed Current Visit: Yes Status: Acute Code(s): K92.2 - GASTROINTESTINAL HEMORRHAGE, UNSPECIFIED SNOMED Code(s): 80586602 Plan: 1. Nichole for discharge. Continue Protonix 40 mg daily on discharge. Return to office in 2-3 weeks. Dysphagia diet. Assessment and plan of care discussed with Dr. Gandhi
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
== END 2018-04-05 14:50 | DRG 377 ==
LOC: EC 09:57 → 3SCARD 14:25
PROVIDERS: ADMIT Family Medicine; ATTEND Family Medicine
PROC: 30233N1 Transfusion of Nonautologous Red Blood Cells into Peripheral Vein, Percutaneous Approach (ICD-10-PCS; 2018-03-31)
PROC: 0DB98ZX Excision of Duodenum, Via Natural or Artificial Opening Endoscopic, Diagnostic (ICD-10-PCS; principal; 2018-04-01 10:11)
PROC: 0DP6XUZ Removal of Feeding Device from Stomach, External Approach (ICD-10-PCS; 2018-04-03)
DX: K92.2 Gastrointestinal hemorrhage, unspecified (principal); J18.9 Pneumonia, unspecified organism; D62 Acute posthemorrhagic anemia; I50.22 Chronic systolic (congestive) heart failure; J44.0 Chronic obstructive pulmonary disease with (acute) lower respiratory infection; J96.12 Chronic respiratory failure with hypercapnia; R47.01 Aphasia; Z43.1 Encounter for attention to gastrostomy; K29.80 Duodenitis without bleeding; E11.9 Type 2 diabetes mellitus without complications; E78.5 Hyperlipidemia, unspecified; F17.200 Nicotine dependence, unspecified, uncomplicated; F32.9 Major depressive disorder, single episode, unspecified; F41.1 Generalized anxiety disorder; I11.0 Hypertensive heart disease with heart failure; I25.10 Atherosclerotic heart disease of native coronary artery without angina pectoris; I25.2 Old myocardial infarction; I27.20 Pulmonary hypertension, unspecified; K21.9 Gastro-esophageal reflux disease without esophagitis; K26.9 Duodenal ulcer, unspecified as acute or chronic, without hemorrhage or perforation; K44.9 Diaphragmatic hernia without obstruction or gangrene; R09.02 Hypoxemia; R13.10 Dysphagia, unspecified; S06.6X9S Traumatic subarachnoid hemorrhage with loss of consciousness of unspecified duration, sequela; Y95 Nosocomial condition; Z79.02 Long term (current) use of antithrombotics/antiplatelets; Z79.51 Long term (current) use of inhaled steroids; Z79.82 Long term (current) use of aspirin; Z82.49 Family history of ischemic heart disease and other diseases of the circulatory system; Z83.3 Family history of diabetes mellitus; Z85.3 Personal history of malignant neoplasm of breast; Z87.01 Personal history of pneumonia (recurrent); Z87.11 Personal history of peptic ulcer disease; Z87.820 Personal history of traumatic brain injury; Z95.1 Presence of aortocoronary bypass graft; Z99.81 Dependence on supplemental oxygen
CPT/HCPCS: 36415; 36600; 43239; 71046; 80048; 80053; 80202; 81001; 82272; 82805; 83605; 83735; 83880; 84132; 85025; 85610; 85730; 86850; 86900; 86901; 86920; 87040; 88305; 93005; 94640; 94760; 96361; 96365; 96367; 96374; 96375; 99291

== ENCOUNTER 2018-04-16 01:45 | Inpatient (IN) | payer OTHER ==
[2018-04-16] MEDS ORDERED: ALBUTEROL NEBULIZED 2.5 MG/3 ML INHALATION STA (01:50)
[2018-04-16] MEDS ORDERED: methylPREDNISolone SOD SUCCI 125 MG/2 ML VIAL IV STA (01:50)
[2018-04-16 02:10] LABS: Anisocytosis Slight; Basophils # (A) 0.1 k/uL (0-0.2); Basophils % (A) 1 %; Eosinophils # (A) 0.4 k/uL (0-0.7); Eosinophils % (A) 3 %; HCT 38.1 % (34.0-46.0); Hypochromasia Marked; Lymphocytes # (A) 4.5 k/uL (1.0-4.8); Lymphocytes % (A) 35 %; MCH 25.5 pg (25.0-35.0); MCHC 28.9 g/dL (31.0-37.0); MCV 88.1 fL (80.0-100.0); Mean Platelet Volume 6.9; Monocytes # (A) 0.9 k/uL (0-1.0); Monocytes % (A) 7 %; Neutrophils # (A) 6.7 k/uL (1.3-7.7); Neutrophils % (A) 51 %; Poikilocytosis Slight; RBC 4.33 m/uL (3.80-5.40); RDW 18.2 % (11.5-15.5)
--- NOTE | 2018-04-16 02:15 | XR ---
EXAMINATION TYPE: XR chest 1V portable DATE OF EXAM: 04/16/2018 COMPARISON: 03/31/2018 HISTORY: Dyspnea TECHNIQUE: Single frontal view of the chest is obtained. FINDINGS: There is some patchy airspace consolidation in the right lower lobe. There is pulmonary in terstitial edema. There are sternal wires. Costophrenic angles are clear. IMPRESSION: Increasing right lower lobe pneumonia compared to last exam. Mild heart failure is possi ble. There is underlying COPD.
[2018-04-16 02:17] LABS: ALT 28 U/L (9-52); AST 40 U/L (14-36); Alkaline Phosphatase 101 U/L (38-126); Anion Gap 10 mmol/L; Blood Urea Nitrogen 14 mg/dL (7-17); Calcium 9.6 mg/dL (8.4-10.2); Carbon Dioxide 31 mmol/L (22-30); Chloride 97 mmol/L (98-107); Glucose 224 mg/dL (74-99); Potassium 4.8 mmol/L (3.5-5.1); Sodium 138 mmol/L (137-145); Total Bilirubin 0.2 mg/dL (0.2-1.3); Total Protein 7.4 g/dL (6.3-8.2)
[2018-04-16 02:18] LABS: Platelet Count 802 k/uL (150-450)
[2018-04-16 02:23] LABS: Prothrombin Time 9.7 sec (9.0-12.0)
[2018-04-16 02:24] LABS: Partial Thromboplastin Time 24.7 sec (22.0-30.0)
[2018-04-16 02:39] LABS: D-Dimer 2.68 mg/L FEU (<0.60)
[2018-04-16 02:46] LABS: Creatine Kinase MB 3.4 ng/mL (0.0-2.4); Troponin I 0.032 ng/mL (0.000-0.034)
--- NOTE | 2018-04-16 03:50 | CT ---
EXAMINATION TYPE: CT chest angio for PE DATE OF EXAM: 04/16/2018 COMPARISON: 06/09/2017 HISTORY: FESTUS CT DLP: 191.2 mGycm Automated exposure control for dose reduction was used. CONTRAST: CT Chest for pulmonary embolism performed with with IV Contrast, patient injected with 45 ml mL of Is ovue 370. FINDINGS: There are 3-D post processed images. There is coarse interstitial and airspace infiltrate in the righ t lower lobe. There is minimal pleural thickening at the lung bases. There is no pericardial effusion . There is coarse interstitial infiltrate in the mid and upper lung hastings. Thoracic aorta is atherom atous. The ascending aorta measures 3.9 cm. I see no filling defects in the pulmonary arteries. There are no hilar masses. There are a few paratracheal lymph nodes that measure up to 1.4 cm. There are e mphysematous changes in the upper lobes. IMPRESSION: Pulmonary emphysema. Patchy pneumonia in the right lower lobe more than the left lower lobe. Pleural thickening at the lung bases. Appearance of the lungs is not significantly different than old CT scan of 06/09/2017 and therefore suggestive of chronic fibrosis. No evidence of pulmonary embolism. Borderline aneurysm of the ascending aorta. Mediastinal lymph node s consistent with inflammatory disease.
[2018-04-16 03:55] LABS: VBG PH 7.4 (7.31-7.41)
[2018-04-16] MEDS ORDERED: AZITHROMYCIN 500 MG in SODIUM CHLORIDE 0.9% 250 ML IVPB STA (04:02)
[2018-04-16] MEDS ORDERED: TOBRAMYCIN PER PHARMACY MISCELLANE PRN (04:02)
[2018-04-16] MEDS ORDERED: PIPERACILLIN-TAZOBACTAM 3.375 GM in SODIUM CHLORIDE 0.9% 100 ML IVPB STA (04:02)
[2018-04-16] MEDS ORDERED: PNEUMONIA PROTOCOL UTILIZED 1 EACH MISC PO PRN (04:26)
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
[2018-04-16] MEDS ORDERED: TOBRAMYCIN SULFATE IVPB ONE (05:30)
[2018-04-16] MEDS ORDERED: SODIUM CHLORIDE 0.9% IVPB ONE (05:30)
[2018-04-16] MEDS: SODIUM CHLORIDE 0.9% 1,000 ML IV SCH (05:49)
[2018-04-16] MEDS: SYMBICORT 160-4.5 MCG INHALER INHALATION SCH ×2 (08:24→20:54)
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
[2018-04-16] MEDS: guaiFENesin 600 MG TABLET.ER PO SCH ×2 (10:29→20:51)
[2018-04-16] MEDS: ISOSORBIDE MONONITRATE ER 30 MG TAB.ER.24H PO SCH (10:29)
[2018-04-16] MEDS: SPIRONOLACTONE 25 MG TAB PO SCH (10:29)
[2018-04-16] MEDS: PANTOPRAZOLE 40 MG TABLET PO SCH (10:29)
[2018-04-16] MEDS: PRIMIDONE 50 MG TAB PO SCH ×3 (10:29→20:51)
[2018-04-16] MEDS: GABAPENTIN 400 MG CAP PO SCH ×4 (10:30→20:51)
[2018-04-16] MEDS: CYANOCOBALAMIN 500 MCG TAB PO SCH (10:30)
[2018-04-16] MEDS: NYSTATIN 100,000 UNIT/ML SUSP 500,000 UNIT/5 ML CUP PO SCH ×5 (10:30→20:51)
[2018-04-16] MEDS: FUROSEMIDE 20 MG TAB PO SCH ×2 (10:31→17:27)
[2018-04-16] MEDS: PARoxetine 20 MG TAB PO SCH (10:31)
[2018-04-16] MEDS: LACOSAMIDE 50 MG TABLET PO SCH ×2 (10:31→20:51)
[2018-04-16] MEDS: PROPRANOLOL 40 MG TAB PO SCH (10:32)
[2018-04-16] MEDS: FLUDROCORTISONE 0.1 MG TAB PO SCH (10:32)
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
[2018-04-16] MEDS: RIVASTIGMINE TARTRATE 1.5 MG PO SCH (12:50)
[2018-04-16] MEDS: PIPERACILLIN-TAZOBACTAM 3.375 GM in SODIUM CHLORIDE 0.9% 100 ML IVPB SCH ×2 (17:00→20:50)
[2018-04-16 20:40] LABS: Glucose,Whole Blood 100 mg/dL (75-99)
[2018-04-16] MEDS: ATORVASTATIN 80 MG TAB PO SCH (20:51)
[2018-04-16] MEDS: LATANOPROST 0.005% OPHTH DROPS 2.5 ML BTL LEFT EYE SCH (20:52)
[2018-04-16] MEDS: ALBUTEROL NEBULIZED 2.5 MG/3 ML INHALATION PRN (20:54)
[2018-04-17] MEDS: PIPERACILLIN-TAZOBACTAM 3.375 GM in SODIUM CHLORIDE 0.9% 100 ML IVPB SCH ×3 (04:18→20:10)
[2018-04-17] MEDS: SODIUM CHLORIDE 0.9% 1,000 ML IV SCH (04:19)
[2018-04-17] MEDS: PROPRANOLOL 40 MG TAB PO SCH ×3 (04:19→20:13)
[2018-04-17] MEDS ORDERED: SODIUM CHLORIDE 0.9% IVPB SCH (06:00)
[2018-04-17] MEDS ORDERED: TOBRAMYCIN SULFATE IVPB SCH (06:00)
[2018-04-17 06:15] LABS: Anisocytosis Slight; Basophils % (A) 1 %; Eosinophils # (A) 0.1 k/uL (0-0.7); Eosinophils % (A) 1 %; HCT 27.3 % (34.0-46.0); Hypochromasia Marked; Lymphocytes # (A) 1.8 k/uL (1.0-4.8); Lymphocytes % (A) 25 %; MCH 25.2 pg (25.0-35.0); MCHC 30.1 g/dL (31.0-37.0); Mean Platelet Volume 6.7; Monocytes # (A) 0.7 k/uL (0-1.0); Monocytes % (A) 9 %; Neutrophils # (A) 4.3 k/uL (1.3-7.7); Neutrophils % (A) 60 %; Platelet Count 495 k/uL (150-450); Poikilocytosis Slight; RBC 3.25 m/uL (3.80-5.40); RDW 18.3 % (11.5-15.5); WBC 7.2 k/uL (3.8-10.6)
[2018-04-17 06:20] LABS: HGB 8.2 gm/dL (11.4-16.0)
[2018-04-17 06:22] LABS: Glucose,Whole Blood 108 mg/dL (75-99)
[2018-04-17 06:42] LABS: Anion Gap 4 mmol/L; Blood Urea Nitrogen 14 mg/dL (7-17); Calcium 8.8 mg/dL (8.4-10.2); Carbon Dioxide 36 mmol/L (22-30); Chloride 100 mmol/L (98-107); Glucose 96 mg/dL (74-99); Magnesium 1.8 mg/dL (1.6-2.3); Potassium 4.1 mmol/L (3.5-5.1); Sodium 140 mmol/L (137-145)
[2018-04-17] MEDS: SYMBICORT 160-4.5 MCG INHALER INHALATION SCH ×2 (08:52→19:23)
[2018-04-17] MEDS ORDERED: AZITHROMYCIN 500 MG TAB PO SCH (09:00)
[2018-04-17] MEDS: RIVASTIGMINE TARTRATE 1.5 MG PO SCH (09:08)
[2018-04-17] MEDS: CYANOCOBALAMIN 500 MCG TAB PO SCH (09:18)
[2018-04-17] MEDS: PARoxetine 20 MG TAB PO SCH (09:18)
[2018-04-17] MEDS: FUROSEMIDE 20 MG TAB PO SCH ×2 (09:19→16:48)
[2018-04-17] MEDS: FLUDROCORTISONE 0.1 MG TAB PO SCH (09:19)
[2018-04-17] MEDS: GABAPENTIN 400 MG CAP PO SCH ×4 (09:19→20:13)
[2018-04-17] MEDS: PANTOPRAZOLE 40 MG TABLET PO SCH (09:20)
[2018-04-17] MEDS: NYSTATIN 100,000 UNIT/ML SUSP 500,000 UNIT/5 ML CUP PO SCH ×4 (09:20→20:14)
[2018-04-17] MEDS: guaiFENesin 600 MG TABLET.ER PO SCH ×2 (09:20→20:13)
[2018-04-17] MEDS: LACOSAMIDE 50 MG TABLET PO SCH ×2 (09:20→20:13)
[2018-04-17] MEDS: PRIMIDONE 50 MG TAB PO SCH ×3 (09:20→20:13)
[2018-04-17] MEDS: SPIRONOLACTONE 25 MG TAB PO SCH (09:20)
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
[2018-04-17] MEDS: ISOSORBIDE MONONITRATE ER 30 MG TAB.ER.24H PO SCH (12:13)
[2018-04-17 12:16] LABS: Glucose,Whole Blood 134 mg/dL (75-99)
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
[2018-04-17 15:10] VITALS: BMI 19.8
[2018-04-17 15:53] LABS: ABG Base Excess 12.4 mmol/L; ABG HCO3 37 mmol/L (21-25); ABG Oxygen Saturation 92.2 % (94-97); ABG PCO2 58 mmHg (35-45); ABG PH 7.41 (7.35-7.45); ABG PO2 62 mmHg (83-108); ABG TCO2 39 mmol/L (19-24)
[2018-04-17 16:33] LABS: Glucose,Whole Blood 124 mg/dL (75-99)
--- NOTE | 2018-04-17 19:13 | XR ---
EXAMINATION TYPE: XR chest 2V DATE OF EXAM: 04/17/2018 COMPARISON: 04/16/2018 HISTORY: Short of breath TECHNIQUE: Frontal and lateral views of the chest are obtained. FINDINGS: There is some patchy infiltrate in the right lower lobe. There are sternal wires. There is no heart failure. Heart size is normal. There is no pleural effusion. IMPRESSION: Right lower lobe pneumonia unchanged. There is clearing of mild pulmonary vascular conge stion compared to yesterday.
[2018-04-17] MEDS: ATORVASTATIN 80 MG TAB PO SCH (20:13)
[2018-04-17] MEDS: LATANOPROST 0.005% OPHTH DROPS 2.5 ML BTL LEFT EYE SCH (20:14)
[2018-04-17 20:32] LABS: Glucose,Whole Blood 135 mg/dL (75-99)
[2018-04-18] MEDS: ALPRAZolam 0.25 MG TAB PO PRN ×2 (01:09→22:58)
[2018-04-18] MEDS: PIPERACILLIN-TAZOBACTAM 3.375 GM in SODIUM CHLORIDE 0.9% 100 ML IVPB SCH ×3 (04:32→21:07)
[2018-04-18] MEDS: SODIUM CHLORIDE 0.9% 1,000 ML IV SCH (04:53)
[2018-04-18] MEDS ORDERED: TOBRAMYCIN TROUGH DUE 1 EACH MISC MISCELLANE ONE (05:00)
[2018-04-18 05:46] LABS: Glucose,Whole Blood 115 mg/dL (75-99)
[2018-04-18] MEDS ORDERED: TOBRAMYCIN PEAK DUE 1 EACH MISC MISCELLANE ONE (08:00)
[2018-04-18] MEDS: SYMBICORT 160-4.5 MCG INHALER INHALATION SCH ×2 (08:15→18:41)
[2018-04-18] MEDS: FUROSEMIDE 20 MG TAB PO SCH ×2 (09:14→17:12)
[2018-04-18] MEDS: LACOSAMIDE 50 MG TABLET PO SCH ×2 (09:14→21:08)
[2018-04-18] MEDS: guaiFENesin 600 MG TABLET.ER PO SCH ×2 (09:14→21:08)
[2018-04-18] MEDS: CYANOCOBALAMIN 500 MCG TAB PO SCH (09:14)
[2018-04-18] MEDS: ISOSORBIDE MONONITRATE ER 30 MG TAB.ER.24H PO SCH (09:14)
[2018-04-18] MEDS: NYSTATIN 100,000 UNIT/ML SUSP 500,000 UNIT/5 ML CUP PO SCH ×5 (09:14→21:22)
[2018-04-18] MEDS: GABAPENTIN 400 MG CAP PO SCH ×4 (09:14→21:08)
[2018-04-18] MEDS: FLUDROCORTISONE 0.1 MG TAB PO SCH (09:17)
[2018-04-18] MEDS: PANTOPRAZOLE 40 MG TABLET PO SCH (09:17)
[2018-04-18] MEDS: PRIMIDONE 50 MG TAB PO SCH ×3 (09:18→21:08)
[2018-04-18] MEDS: RIVASTIGMINE TARTRATE 1.5 MG PO SCH (09:18)
[2018-04-18] MEDS: SPIRONOLACTONE 25 MG TAB PO SCH (09:18)
[2018-04-18] MEDS: PARoxetine 20 MG TAB PO SCH (09:18)
[2018-04-18 11:34] LABS: Glucose,Whole Blood 116 mg/dL (75-99)
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
[2018-04-18] MEDS: PROPRANOLOL 40 MG TAB PO SCH ×2 (12:30→22:51)
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
[2018-04-18 17:12] LABS: Glucose,Whole Blood 120 mg/dL (75-99)
[2018-04-18] MEDS: ALBUTEROL NEBULIZED 2.5 MG/3 ML INHALATION PRN (18:41)
[2018-04-18 20:36] LABS: Glucose,Whole Blood 112 mg/dL (75-99)
[2018-04-18] MEDS: LATANOPROST 0.005% OPHTH DROPS 2.5 ML BTL LEFT EYE SCH (21:07)
[2018-04-18] MEDS: ATORVASTATIN 80 MG TAB PO SCH (21:08)
[2018-04-19] MEDS: PIPERACILLIN-TAZOBACTAM 3.375 GM in SODIUM CHLORIDE 0.9% 100 ML IVPB SCH ×2 (03:59→11:45)
[2018-04-19] MEDS: SODIUM CHLORIDE 0.9% 1,000 ML IV SCH (03:59)
[2018-04-19 06:23] LABS: Glucose,Whole Blood 106 mg/dL (75-99)
[2018-04-19] MEDS: FUROSEMIDE 20 MG TAB PO SCH ×2 (08:01→16:34)
[2018-04-19] MEDS: guaiFENesin 600 MG TABLET.ER PO SCH (08:01)
[2018-04-19] MEDS: CYANOCOBALAMIN 500 MCG TAB PO SCH (08:01)
[2018-04-19] MEDS: GABAPENTIN 400 MG CAP PO SCH ×2 (08:01→13:15)
[2018-04-19] MEDS: FLUDROCORTISONE 0.1 MG TAB PO SCH (08:01)
[2018-04-19] MEDS: PRIMIDONE 50 MG TAB PO SCH ×2 (08:02→16:34)
[2018-04-19] MEDS: ISOSORBIDE MONONITRATE ER 30 MG TAB.ER.24H PO SCH (08:02)
[2018-04-19] MEDS: PROPRANOLOL 40 MG TAB PO SCH (08:02)
[2018-04-19] MEDS: LACOSAMIDE 50 MG TABLET PO SCH (08:02)
[2018-04-19] MEDS: NYSTATIN 100,000 UNIT/ML SUSP 500,000 UNIT/5 ML CUP PO SCH ×2 (08:02→13:15)
[2018-04-19] MEDS: PARoxetine 20 MG TAB PO SCH (08:02)
[2018-04-19] MEDS: PANTOPRAZOLE 40 MG TABLET PO SCH (08:08)
[2018-04-19] MEDS: RIVASTIGMINE TARTRATE 1.5 MG PO SCH (08:10)
[2018-04-19] MEDS: SPIRONOLACTONE 25 MG TAB PO SCH (08:12)
[2018-04-19] MEDS: SYMBICORT 160-4.5 MCG INHALER INHALATION SCH (09:08)
[2018-04-19] MEDS: ALBUTEROL NEBULIZED 2.5 MG/3 ML INHALATION PRN (09:08)
[2018-04-19 11:11] LABS: Glucose,Whole Blood 121 mg/dL (75-99)
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
[2018-04-19 15:30] VITALS: BP 100/51; PULSE 78; RESP 20; TEMP 99.1
== END 2018-04-19 17:39 | disposition home health service (06) | DRG 193 ==
LOC: EC 01:45 → 3SCARD 04:27 → 4MS4W 04-19 11:39
PROVIDERS: ADMIT Family Medicine; ATTEND Family Medicine
PROC: 5A09357 Assistance with Respiratory Ventilation, Less than 24 Consecutive Hours, Continuous Positive Airway Pressure (ICD-10-PCS; principal; 2018-04-16)
DX: J18.9 Pneumonia, unspecified organism (principal); I50.23 Acute on chronic systolic (congestive) heart failure; J96.21 Acute and chronic respiratory failure with hypoxia; J96.22 Acute and chronic respiratory failure with hypercapnia; J44.1 Chronic obstructive pulmonary disease with (acute) exacerbation; R47.01 Aphasia; I11.0 Hypertensive heart disease with heart failure; I27.20 Pulmonary hypertension, unspecified; K26.9 Duodenal ulcer, unspecified as acute or chronic, without hemorrhage or perforation; R13.10 Dysphagia, unspecified; S06.6X9S Traumatic subarachnoid hemorrhage with loss of consciousness of unspecified duration, sequela; E78.5 Hyperlipidemia, unspecified; F32.9 Major depressive disorder, single episode, unspecified; F41.1 Generalized anxiety disorder; F17.201 Nicotine dependence, unspecified, in remission; M81.0 Age-related osteoporosis without current pathological fracture; I25.10 Atherosclerotic heart disease of native coronary artery without angina pectoris; I25.2 Old myocardial infarction; K21.9 Gastro-esophageal reflux disease without esophagitis; R47.1 Dysarthria and anarthria; M25.531 Pain in right wrist; G89.29 Other chronic pain; K90.0 Celiac disease; H40.9 Unspecified glaucoma; I25.5 Ischemic cardiomyopathy; Z79.51 Long term (current) use of inhaled steroids; Z79.899 Other long term (current) drug therapy; Z88.8 Allergy status to other drugs, medicaments and biological substances; Z99.81 Dependence on supplemental oxygen; Z95.1 Presence of aortocoronary bypass graft; Z87.01 Personal history of pneumonia (recurrent); Z85.3 Personal history of malignant neoplasm of breast; Z92.3 Personal history of irradiation; Z95.820 Peripheral vascular angioplasty status with implants and grafts; Z82.49 Family history of ischemic heart disease and other diseases of the circulatory system; Z83.3 Family history of diabetes mellitus; V89.2XXS Person injured in unspecified motor-vehicle accident, traffic, sequela
CPT/HCPCS: 36415; 36600; 71045; 71046; 71275; 80048; 80053; 82550; 82553; 82803; 82805; 83735; 83880; 84134; 84484; 85025; 85379; 85610; 85730; 87040; 93005; 94640; 94660; 94760; 94762; 96365; 96375; 99291

== ENCOUNTER 2018-04-21 04:21 | Inpatient (IN) | payer OTHER ==
[2018-04-21] MEDS ORDERED: methylPREDNISolone SOD SUCCI 125 MG/2 ML VIAL IV STA (04:54)
[2018-04-21] MEDS ORDERED: ALBUTEROL NEBULIZED 2.5 MG/3 ML INHALATION STA (04:54)
[2018-04-21] MEDS ORDERED: IPRATROPIUM 0.5 MG/2.5 ML NEBU INHALATION STA (04:54)
--- NOTE | 2018-04-21 05:22 | XR ---
EXAMINATION TYPE: XR chest 1V portable DATE OF EXAM: 04/21/2018 COMPARISON: 04/17/2018 HISTORY: Short of breath TECHNIQUE: Single frontal view of the chest is obtained. FINDINGS: There is pulmonary edema. There are sternal wires. There are chest leads. There is slight blunting of costophrenic angles. IMPRESSION: There is new bilateral pulmonary edema compared to last exam and consistent with RDS or acute heart failure. There is right lower lobe pneumonia unchanged.
[2018-04-21] MEDS ORDERED: NITROGLYCERIN-D5W PMX 50 MG in DEXTROSE/WATER 1 250ML.BAG IV ONE (05:26)
[2018-04-21 05:28] LABS: Anisocytosis Slight; HCT 39.4 % (34.0-46.0); HGB 11.2 gm/dL (11.4-16.0); Hypochromasia Marked; MCH 25.3 pg (25.0-35.0); MCHC 28.5 g/dL (31.0-37.0); MCV 88.7 fL (80.0-100.0); Mean Platelet Volume 7.7; Platelet Count 860 k/uL (150-450); Poikilocytosis Slight; RBC 4.44 m/uL (3.80-5.40); RDW 17.9 % (11.5-15.5)
[2018-04-21 05:29] LABS: ALT 23 U/L (9-52); AST 37 U/L (14-36); Albumin 4.3 g/dL (3.5-5.0); Alkaline Phosphatase 122 U/L (38-126); Anion Gap 13 mmol/L; Blood Urea Nitrogen 14 mg/dL (7-17); Calcium 9.7 mg/dL (8.4-10.2); Carbon Dioxide 27 mmol/L (22-30); Chloride 99 mmol/L (98-107); Glucose 397 mg/dL (74-99); Potassium 4.2 mmol/L (3.5-5.1); Sodium 139 mmol/L (137-145); Total Bilirubin 0.3 mg/dL (0.2-1.3); Total Protein 7.9 g/dL (6.3-8.2)
[2018-04-21] MEDS ORDERED: MORPHINE SULFATE 4 MG/ML SYRINGE IV STA (05:29)
[2018-04-21 05:32] LABS: Partial Thromboplastin Time 25.7 sec (22.0-30.0); Prothrombin Time 9.6 sec (9.0-12.0)
[2018-04-21 05:49] LABS: Creatine Kinase MB 6.4 ng/mL (0.0-2.4)
[2018-04-21 05:49] LABS: ABG Base Excess -0.6 mmol/L; ABG HCO3 30 mmol/L (21-25); ABG Oxygen Saturation 98.9 % (94-97); ABG PO2 146 mmHg (83-108); ABG TCO2 33 mmol/L (19-24)
[2018-04-21 05:55] LABS: Troponin I 0.093 ng/mL (0.000-0.034)
[2018-04-21 05:57] LABS: Neutrophils % (M) 54 %
[2018-04-21 05:58] LABS: Band Neutrophils % 1 %; Large Platelets Present; Nucleated Red Blood Cells 0 /100 WBC (0-0); Total Cells Counted 100
[2018-04-21 05:59] LABS: ABG PCO2 108 mmHg (35-45); ABG PH 7.05 (7.35-7.45)
[2018-04-21 07:04] LABS: VBG PH 7.11 (7.31-7.41)
[2018-04-21] MEDS ORDERED: ACETAMINOPHEN TAB 325 MG TAB PO PRN (07:23)
[2018-04-21] MEDS ORDERED: ARTIFICIAL TEARS OINTMENT 3.5 GM TUBE BOTH EYES PRN (07:23)
[2018-04-21] MEDS ORDERED: NALOXONE 0.4 MG/ML 1 ML VIAL IV PRN (07:23)
[2018-04-21] MEDS ORDERED: ACETAMINOPHEN SUPPOSITORY 650 MG SUPP RECTAL PRN (07:23)
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
[2018-04-21] MEDS: IPRATROPIUM-ALBUTEROL 3 ML NEB INHALATION SCH ×4 (07:52→19:47)
[2018-04-21] MEDS: SYMBICORT 160-4.5 MCG INHALER INHALATION SCH ×2 (07:52→19:47)
[2018-04-21] MEDS ORDERED: DONEPEZIL 10 MG TAB PO SCH (09:00)
[2018-04-21] MEDS ORDERED: FUROSEMIDE 20 MG TAB PO SCH (09:00)
[2018-04-21] MEDS ORDERED: PANTOPRAZOLE 40 MG TABLET PO SCH (09:00)
[2018-04-21 09:32] LABS: Glucose,Whole Blood 148 mg/dL (75-99)
[2018-04-21 10:40] LABS: ABG Base Excess 3.8 mmol/L; ABG HCO3 30 mmol/L (21-25); ABG Oxygen Saturation 98.4 % (94-97); ABG PCO2 60 mmHg (35-45); ABG PH 7.31 (7.35-7.45); ABG PO2 104 mmHg (83-108); ABG TCO2 32 mmol/L (19-24)
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
[2018-04-21] MEDS: CYANOCOBALAMIN 500 MCG TAB PO SCH (11:47)
[2018-04-21] MEDS: DONEPEZIL 5 MG TAB PO SCH (11:47)
[2018-04-21] MEDS: PARoxetine 20 MG TAB PO SCH (11:48)
[2018-04-21] MEDS: FLUDROCORTISONE 0.1 MG TAB PO SCH (11:48)
[2018-04-21] MEDS: PRIMIDONE 50 MG TAB PO SCH ×3 (11:48→21:38)
[2018-04-21] MEDS: GABAPENTIN 400 MG CAP PO SCH ×4 (11:48→21:37)
[2018-04-21] MEDS: LACOSAMIDE 50 MG TABLET PO SCH ×2 (11:48→20:36)
[2018-04-21] MEDS: ISOSORBIDE MONONITRATE ER 30 MG TAB.ER.24H PO SCH (11:48)
[2018-04-21] MEDS: SPIRONOLACTONE 25 MG TAB PO SCH ×2 (11:49→21:37)
[2018-04-21] MEDS: FAMOTIDINE 20 MG/2 ML VIAL IV SCH ×2 (11:51→20:34)
[2018-04-21] MEDS: SODIUM CHLORIDE 0.9% 1,000 ML IV SCH (11:52)
[2018-04-21 12:08] LABS: Glucose,Whole Blood 146 mg/dL (75-99)
[2018-04-21] MEDS: METOPROLOL SUCCINATE (ER) 50 MG TAB.ER.24H PO SCH (12:34)
[2018-04-21] MEDS: PIPERACILLIN-TAZOBACTAM 3.375 GM in SODIUM CHLORIDE 0.9% 100 ML IVPB SCH ×2 (13:09→22:16)
[2018-04-21] MEDS: methylPREDNISolone SOD SUCCI 125 MG/2 ML VIAL IV SCH ×3 (13:09→23:35)
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
[2018-04-21 18:16] LABS: Glucose,Whole Blood 168 mg/dL (75-99)
[2018-04-21] MEDS: ATORVASTATIN 80 MG TAB PO SCH (20:36)
[2018-04-21 23:34] LABS: Glucose,Whole Blood 155 mg/dL (75-99)
[2018-04-22] MEDS: methylPREDNISolone SOD SUCCI 125 MG/2 ML VIAL IV SCH ×4 (05:23→23:45)
[2018-04-22] MEDS: PIPERACILLIN-TAZOBACTAM 3.375 GM in SODIUM CHLORIDE 0.9% 100 ML IVPB SCH ×3 (05:23→21:40)
[2018-04-22 05:34] LABS: Anisocytosis Slight; Basophils % (A) 0 %; Eosinophils % (A) 0 %; HCT 24.7 % (34.0-46.0); Hypochromasia Marked; Lymphocytes # (A) 0.7 k/uL (1.0-4.8); Lymphocytes % (A) 6 %; MCHC 30.9 g/dL (31.0-37.0); MCV 84.2 fL (80.0-100.0); Mean Platelet Volume 6.6; Monocytes # (A) 0.6 k/uL (0-1.0); Monocytes % (A) 5 %; Neutrophils % (A) 88 %; Platelet Count 399 k/uL (150-450); Poikilocytosis Slight; RBC 2.93 m/uL (3.80-5.40); RDW 17.7 % (11.5-15.5); WBC 12.4 k/uL (3.8-10.6)
[2018-04-22 05:44] LABS: HGB 7.6 gm/dL (11.4-16.0)
[2018-04-22 05:48] LABS: Anion Gap 2 mmol/L; Blood Urea Nitrogen 18 mg/dL (7-17); Calcium 8.3 mg/dL (8.4-10.2); Carbon Dioxide 29 mmol/L (22-30); Chloride 108 mmol/L (98-107); Glucose 135 mg/dL (74-99); Phosphorus 3.6 mg/dL (2.5-4.5); Potassium 4.6 mmol/L (3.5-5.1); Sodium 139 mmol/L (137-145)
[2018-04-22 05:59] LABS: Glucose,Whole Blood 148 mg/dL (75-99)
--- NOTE | 2018-04-22 05:59 | XR ---
EXAMINATION TYPE: XR chest 1V portable DATE OF EXAM: 04/22/2018 HISTORY: pneumonia. REFERENCE: Previous study dated 04/21/2018. FINDINGS: There has been a midline sternotomy. The lungs are overinflated. There is left basilar airspace disease. There are bilateral effusions. Pu lmonary vasculature and pulmonary edema have improved significantly. IMPRESSION: RESOLVING CHANGES OF CONGESTIVE HEART FAILURE.
[2018-04-22 06:12] LABS: Anisocytosis Slight; HCT 23.6 % (34.0-46.0); HGB 7.2 gm/dL (11.4-16.0); Hypochromasia Marked; MCH 25.8 pg (25.0-35.0); MCHC 30.7 g/dL (31.0-37.0); MCV 84.1 fL (80.0-100.0); Mean Platelet Volume 6.8; Platelet Count 380 k/uL (150-450); Poikilocytosis Slight; WBC 12.2 k/uL (3.8-10.6)
[2018-04-22] MEDS: IPRATROPIUM-ALBUTEROL 3 ML NEB INHALATION SCH ×4 (07:58→20:20)
[2018-04-22] MEDS: SYMBICORT 160-4.5 MCG INHALER INHALATION SCH (07:59)
[2018-04-22] MEDS: PRIMIDONE 50 MG TAB PO SCH ×3 (09:02→21:40)
[2018-04-22] MEDS: SPIRONOLACTONE 25 MG TAB PO SCH ×2 (09:03→21:41)
[2018-04-22] MEDS: FAMOTIDINE 20 MG/2 ML VIAL IV SCH ×2 (09:04→21:40)
[2018-04-22] MEDS: DONEPEZIL 5 MG TAB PO SCH (09:04)
[2018-04-22] MEDS: CYANOCOBALAMIN 500 MCG TAB PO SCH (09:04)
[2018-04-22] MEDS: ISOSORBIDE MONONITRATE ER 30 MG TAB.ER.24H PO SCH (09:05)
[2018-04-22] MEDS: METOPROLOL SUCCINATE (ER) 50 MG TAB.ER.24H PO SCH (09:05)
[2018-04-22] MEDS: PARoxetine 20 MG TAB PO SCH (09:05)
[2018-04-22] MEDS: LACOSAMIDE 50 MG TABLET PO SCH ×2 (09:05→21:40)
[2018-04-22] MEDS: FLUDROCORTISONE 0.1 MG TAB PO SCH (09:05)
[2018-04-22] MEDS: GABAPENTIN 400 MG CAP PO SCH ×4 (09:05→21:39)
[2018-04-22] MEDS ORDERED: VANCOMYCIN 1,000 MG in SODIUM CHLORIDE 0.9% 250 ML IVPB STA (10:02)
[2018-04-22] MEDS ORDERED: VANCOMYCIN IV PER PHARMACY 1 EACH MISC MISCELLANE PRN (10:02)
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
--- NOTE | 2018-04-22 10:37 | CONS ---
CONSULTATION Mrs. Benítez is a 62-year-old female who is seen for cardiac evaluations. Patient's electronic medical records reviewed. The history was obtained from the patient as well as the nurse. Patient does not give much detailed history. Most of the history was obtained from the chart. This patient was recently admitted to the hospital with acute respiratory distress and was treated for COPD and bilateral pneumonia. After discharge from the hospital, patient was admitted yesterday morning with acute respiratory distress. Patient had acute hypercapnic respiratory failure. Chest x-ray was suggestive of pulmonary edema and the patient was admitted to the intensive care unit. Patient currently is being treated with BiPAP. This patient also has a known history of ischemic cardiomyopathy with severely impaired left ventricular systolic function. Patient has a history of chronic congestive cardiac failure, hypertension, hyperlipidemia, prior history of myocardial infarction and previous history of subarachnoid hemorrhage as well as the patient has chronic anemia. PAST MEDICAL HISTORY: Includes history of coronary artery bypass surgery, cardiac stent, breast surgery and orthopedic surgery. Patient had coronary artery bypass surgery with mitral valve as well as a tricuspid valve repair. HOME MEDICATIONS: Included metoprolol succinate 50 mg daily, Lipitor 80 mg daily, vitamin B12, rivastigmine, Plavix 75 mg daily, Inderal 40 mg b.i.d. PHYSICAL EXAMINATION: At present reveals a 62-year-old female who does not appear to be in any acute distress at present. In the emergency room, patient was in severe respiratory distress as well as tachypneic. Patient currently is on BiPAP. The heart rate is 70 per minute. Blood pressure is 120/70 mmHg. HEENT examination is negative. Neck is supple. Jugular venous pressure is elevated. Both the carotid pulses are felt. There is no bruit. Chest is symmetrical. Heart, the PMI is not felt. First and second heart sounds are normal. Lungs examination revealed bilateral scattered wheezes with a few basal rales. Abdomen is soft. Liver is enlarged. Extremities, there is no evidence of any significant leg edema. Patient's EKG shows normal sinus rhythm with possible left atrial enlargement and questionable old anterior septal infarct. The patient's recent echocardiogram done in February showed ischemic cardiomyopathy with ejection fraction of 30%-35%. Initial chest x-ray shows evidence of congestive cardiac failure. Patient's proBNP level was 4000, hemoglobin is 7.2. Patient usually runs hemoglobin between 7-8 g. Creatinine is 0.57. Patient's initial troponin was 0.384.0.472 and 0.384. FINAL IMPRESSION: This patient is admitted with acute respiratory distress which is due to the combination of acute hypercapnic respiratory failure secondary to chronic obstructive pulmonary disease and congestive cardiac failure. Patient's chest x-ray does show some improvement in the pulmonary congestion. Patient has a history of coronary artery bypass surgery and severe ischemic cardiomyopathy. RECOMMENDATIONS: We will continue the patient on respiratory support. We will add lisinopril 2.5 mg daily. Continue metoprolol and aspirin. Patient's overall prognosis is very poor. I am not sure exactly the cause of patient's severe anemia which should be looked into it and probably patient will benefit with a hemoglobin of 9 to 10 g. Thank you very much for letting me participate in the care of this nice lady. RUBEN / SHIVA: [id number] /
[2018-04-22 12:12] LABS: Glucose,Whole Blood 152 mg/dL (75-99)
[2018-04-22] MEDS: FUROSEMIDE 40 MG TAB PO SCH (15:07)
[2018-04-22 17:33] LABS: Glucose,Whole Blood 138 mg/dL (75-99)
[2018-04-22] MEDS: BUDESONIDE 1 MG/2 ML NEBU INHALATION SCH (20:20)
[2018-04-22] MEDS: FORMOTEROL FUMARATE 20 MCG/2 ML NEBU INHALATION SCH (20:20)
[2018-04-22] MEDS: ALPRAZolam 0.25 MG TAB PO PRN (21:39)
[2018-04-22] MEDS: ATORVASTATIN 80 MG TAB PO SCH (21:39)
[2018-04-22] MEDS: VANCOMYCIN 1,000 MG in SODIUM CHLORIDE 0.9% 250 ML IVPB SCH (21:51)
[2018-04-22 23:31] LABS: Glucose,Whole Blood 149 mg/dL (75-99)
[2018-04-22] MEDS: SODIUM CHLORIDE 0.9% 1,000 ML IV SCH (23:44)
[2018-04-23] MEDS: PIPERACILLIN-TAZOBACTAM 3.375 GM in SODIUM CHLORIDE 0.9% 100 ML IVPB SCH ×3 (04:48→20:44)
[2018-04-23 05:34] LABS: Anisocytosis Slight; Basophils % (A) 0 %; Eosinophils % (A) 0 %; HCT 26.3 % (34.0-46.0); HGB 7.9 gm/dL (11.4-16.0); Hypochromasia Marked; Lymphocytes # (A) 0.6 k/uL (1.0-4.8); Lymphocytes % (A) 5 %; MCH 25.3 pg (25.0-35.0); MCHC 30.2 g/dL (31.0-37.0); MCV 83.8 fL (80.0-100.0); Mean Platelet Volume 6.7; Monocytes # (A) 0.6 k/uL (0-1.0); Monocytes % (A) 5 %; Neutrophils # (A) 9.7 k/uL (1.3-7.7); Neutrophils % (A) 89 %; Platelet Count 418 k/uL (150-450); Poikilocytosis Slight; RBC 3.14 m/uL (3.80-5.40); RDW 17.7 % (11.5-15.5); WBC 10.9 k/uL (3.8-10.6)
[2018-04-23 05:48] LABS: Anion Gap 5 mmol/L; Blood Urea Nitrogen 23 mg/dL (7-17); Calcium 8.3 mg/dL (8.4-10.2); Carbon Dioxide 28 mmol/L (22-30); Chloride 107 mmol/L (98-107); Glucose 135 mg/dL (74-99); Magnesium 1.9 mg/dL (1.6-2.3); Phosphorus 3.8 mg/dL (2.5-4.5); Potassium 3.9 mmol/L (3.5-5.1); Sodium 140 mmol/L (137-145)
[2018-04-23] MEDS: methylPREDNISolone SOD SUCCI 125 MG/2 ML VIAL IV SCH ×3 (05:50→17:08)
[2018-04-23] MEDS ORDERED: POTASSIUM CHLORIDE ER 20 MEQ TAB.ER PO SCH (06:00)
[2018-04-23] MEDS ORDERED: Potassium Replacement Protocol 1 EACH MISC MISCELLANE PRN (06:00)
--- NOTE | 2018-04-23 06:14 | XR ---
EXAMINATION TYPE: XR chest 1V portable DATE OF EXAM: 04/23/2018 HISTORY: pneumonia. REFERENCE: Previous study dated 04/22/2018. FINDINGS: There has been a midline sternotomy. There are surgical clips overlying the superior medias tinum. The lungs are overinflated. The heart is mildly enlarged. There is bibasilar airspace disease as well as bilateral effusions. The right-sided effusion has increased in size in comparison with the previo us study. IMPRESSION: 1. COPD. 2. MILD CARDIOMEGALY. 3. BIBASILAR AIRSPACE DISEASE. 4. BILATERAL EFFUSIONS, INCREASING ON THE RIGHT.
[2018-04-23 06:49] LABS: Glucose,Whole Blood 154 mg/dL (75-99)
[2018-04-23] MEDS: FORMOTEROL FUMARATE 20 MCG/2 ML NEBU INHALATION SCH ×2 (07:57→19:17)
[2018-04-23] MEDS: BUDESONIDE 1 MG/2 ML NEBU INHALATION SCH ×2 (07:57→19:17)
[2018-04-23] MEDS: IPRATROPIUM-ALBUTEROL 3 ML NEB INHALATION SCH ×4 (07:57→19:17)
[2018-04-23] MEDS: CYANOCOBALAMIN 500 MCG TAB PO SCH (09:10)
[2018-04-23] MEDS: METOPROLOL SUCCINATE (ER) 50 MG TAB.ER.24H PO SCH (09:11)
[2018-04-23] MEDS: PRIMIDONE 50 MG TAB PO SCH ×3 (09:11→21:05)
[2018-04-23] MEDS: GABAPENTIN 400 MG CAP PO SCH ×4 (09:11→21:05)
[2018-04-23] MEDS: ISOSORBIDE MONONITRATE ER 30 MG TAB.ER.24H PO SCH (09:11)
[2018-04-23] MEDS: FUROSEMIDE 40 MG TAB PO SCH (09:11)
[2018-04-23] MEDS: DONEPEZIL 5 MG TAB PO SCH (09:11)
[2018-04-23] MEDS: LISINOPRIL 2.5 MG TAB PO SCH (09:11)
[2018-04-23] MEDS: ASPIRIN 81 MG PO SCH (09:12)
[2018-04-23] MEDS: PARoxetine 20 MG TAB PO SCH (09:12)
[2018-04-23] MEDS: LACOSAMIDE 50 MG TABLET PO SCH ×2 (09:12→21:05)
[2018-04-23] MEDS: SPIRONOLACTONE 25 MG TAB PO SCH ×2 (09:12→21:04)
[2018-04-23] MEDS: FLUDROCORTISONE 0.1 MG TAB PO SCH (09:12)
[2018-04-23] MEDS: FAMOTIDINE 20 MG/2 ML VIAL IV SCH ×2 (09:12→20:58)
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
[2018-04-23 13:00] LABS: Glucose,Whole Blood 140 mg/dL (75-99)
[2018-04-23] MEDS ORDERED: SODIUM CHLORIDE 0.9% 1,000 ML IV ONE (14:00)
[2018-04-23] MEDS: FUROSEMIDE 20 MG TAB PO SCH (15:23)
[2018-04-23 17:15] LABS: Glucose,Whole Blood 135 mg/dL (75-99)
[2018-04-23] MEDS: SODIUM CHLORIDE 0.9% 1,000 ML IV SCH (20:43)
[2018-04-23] MEDS: ALPRAZolam 0.25 MG TAB PO PRN (21:07)
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
[2018-04-24] MEDS: methylPREDNISolone SOD SUCCI 125 MG/2 ML VIAL IV SCH ×4 (00:31→17:01)
[2018-04-24 00:32] LABS: Glucose,Whole Blood 127 mg/dL (75-99)
[2018-04-24] MEDS: PIPERACILLIN-TAZOBACTAM 3.375 GM in SODIUM CHLORIDE 0.9% 100 ML IVPB SCH ×3 (03:25→20:47)
[2018-04-24 04:49] LABS: Anisocytosis Slight; Basophils % (A) 0 %; Eosinophils % (A) 0 %; HCT 27.8 % (34.0-46.0); HGB 8.4 gm/dL (11.4-16.0); Hypochromasia Marked; Lymphocytes # (A) 0.6 k/uL (1.0-4.8); Lymphocytes % (A) 7 %; MCH 24.8 pg (25.0-35.0); MCHC 30.1 g/dL (31.0-37.0); MCV 82.6 fL (80.0-100.0); Mean Platelet Volume 6.3; Microcytosis Slight; Monocytes # (A) 0.5 k/uL (0-1.0); Monocytes % (A) 6 %; Neutrophils # (A) 7.3 k/uL (1.3-7.7); Neutrophils % (A) 87 %; Platelet Count 416 k/uL (150-450); Poikilocytosis Slight; RBC 3.36 m/uL (3.80-5.40); WBC 8.4 k/uL (3.8-10.6)
[2018-04-24 04:58] LABS: Anion Gap 8 mmol/L; Blood Urea Nitrogen 26 mg/dL (7-17); Calcium 8.4 mg/dL (8.4-10.2); Carbon Dioxide 26 mmol/L (22-30); Chloride 104 mmol/L (98-107); Glucose 124 mg/dL (74-99); Magnesium 1.9 mg/dL (1.6-2.3); Phosphorus 3.9 mg/dL (2.5-4.5); Potassium 3.4 mmol/L (3.5-5.1); Sodium 138 mmol/L (137-145)
[2018-04-24 05:38] LABS: Glucose,Whole Blood 133 mg/dL (75-99)
[2018-04-24] MEDS: POTASSIUM CHLORIDE ER 20 MEQ TAB.ER PO SCH ×2 (05:45→07:01)
--- NOTE | 2018-04-24 06:09 | PN ---
PROGRESS NOTE This patient was admitted with acute respiratory distress secondary to combination of acute exacerbation of COPD as well as congestive cardiac failure. The patient's blood cultures now growing vancomycin resistant enterococci. The patient is comfortable. No acute respiratory distress is noted. Chest x-ray shows improvement in the congestive heart failure. Blood pressure is 108/95. Heart rate is 76 per minute. Pulse oxygenation 98%. First and second heart sounds are heard. Lungs reveal bilateral scattered wheezes and few crackles are noted. Electrolytes are normal. Creatinine is 0.6. IMPRESSION: Congestive heart failure is improving. The patient is currently getting IV antibiotic therapy for the infection. Continue the current therapy. We will switch her to Lasix 20 mg b.i.d. Patient's overall prognosis remains poor. MMODL / IJN: [id number] /
--- NOTE | 2018-04-24 07:29 | XR ---
EXAMINATION TYPE: XR chest 1V portable DATE OF EXAM: 04/24/2018 COMPARISON: Prior chest x-ray 04/23/2018 HISTORY: Pneumonia TECHNIQUE: Single frontal view of the chest is obtained. FINDINGS: Bibasilar increased density is present, patient is post median sternotomy and atrial appen dage clipping. No evident pneumothorax, cardiac valve replacement is present. There are overlying car diac leads. Cardiac mediastinal silhouette, pulmonary vascularity and jairo are stable. Interstitium i s increased, there are prominent lung volumes. There is underlying emphysema. IMPRESSION: Bibasilar effusions and associated atelectasis versus pneumonia or edema. Additional fol low-up recommended.
[2018-04-24] MEDS: IPRATROPIUM-ALBUTEROL 3 ML NEB INHALATION SCH ×4 (07:49→19:57)
[2018-04-24] MEDS: BUDESONIDE 1 MG/2 ML NEBU INHALATION SCH ×2 (07:49→19:57)
[2018-04-24] MEDS: FORMOTEROL FUMARATE 20 MCG/2 ML NEBU INHALATION SCH ×2 (07:49→19:57)
[2018-04-24] MEDS ORDERED: VANCOMYCIN TROUGH DUE 1 EACH MISC MISCELLANE ONE (08:00)
[2018-04-24] MEDS: CYANOCOBALAMIN 500 MCG TAB PO SCH (08:20)
[2018-04-24] MEDS: PRIMIDONE 50 MG TAB PO SCH ×3 (08:23→21:04)
[2018-04-24] MEDS: PARoxetine 20 MG TAB PO SCH (08:23)
[2018-04-24] MEDS: FUROSEMIDE 20 MG TAB PO SCH ×2 (08:24→16:57)
[2018-04-24] MEDS: SODIUM CHLORIDE 0.9% 1,000 ML IV SCH (08:26)
[2018-04-24] MEDS: LACOSAMIDE 50 MG TABLET PO SCH ×2 (08:27→20:49)
[2018-04-24] MEDS: ISOSORBIDE MONONITRATE ER 30 MG TAB.ER.24H PO SCH (08:28)
[2018-04-24] MEDS: LISINOPRIL 2.5 MG TAB PO SCH (08:28)
[2018-04-24] MEDS: GABAPENTIN 400 MG CAP PO SCH ×4 (08:29→21:04)
[2018-04-24] MEDS: FAMOTIDINE 20 MG/2 ML VIAL IV SCH ×2 (08:30→20:49)
[2018-04-24] MEDS: SPIRONOLACTONE 25 MG TAB PO SCH ×2 (09:50→20:49)
[2018-04-24] MEDS: FLUDROCORTISONE 0.1 MG TAB PO SCH (09:51)
[2018-04-24] MEDS: ASPIRIN 81 MG PO SCH (09:51)
[2018-04-24] MEDS: DONEPEZIL 5 MG TAB PO SCH (09:52)
[2018-04-24] MEDS: METOPROLOL SUCCINATE (ER) 50 MG TAB.ER.24H PO SCH (09:52)
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
[2018-04-24] MEDS ORDERED: INSULIN ASPART 100 UNIT/ML 1 ML 10 ML VIAL SQ SCH (13:15)
[2018-04-24 13:38] LABS: Glucose,Whole Blood 251 mg/dL (75-99)
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
[2018-04-24] MEDS ORDERED: FUROSEMIDE 40 MG TAB PO SCH (16:30)
[2018-04-24 17:01] LABS: Glucose,Whole Blood 126 mg/dL (75-99)
[2018-04-24] MEDS: INSULIN ASPART 100 UNIT/ML 1 ML 10 ML VIAL SQ SCH ×2 (17:23→20:45)
--- NOTE | 2018-04-24 17:23 | PN ---
PROGRESS NOTE DATE OF SERVICE: 04/24/2018. REASON FOR FOLLOW UP: Positive blood culture with VRE. INTERVAL HISTORY: The patient is afebrile. She is breathing comfortably. The patient denies having any chest pain or shortness of breath. She did have been minimal cough. No nausea, no vomiting. No abdominal pain. No diarrhea. She was fed a meal today and per the nursing staff, no choking has been noticed. EXAMINATION: Blood pressure 151/76, pulse of 76, temperature 98.6. She is 93% on 2 L nasal cannula. General description is a middle aged female lying in bed in no distress. Respiratory system: Unlabored breathing. Clear to auscultation anteriorly. Heart S1, S2. Regular rate and rhythm. Abdomen soft. No tenderness. Extremities: No edema of the feet. LABS: Hemoglobin 8.4, white count 8.4, BUN of 26, creatinine 0.65. Blood culture repeat has been negative so far. Initial blood culture with VRE that is ampicillin resistant. DIAGNOSTIC IMPRESSION AND PLAN: 1. Patient with VRE bacteremia with no clear focus. Patient urine has been negative. No abdominal symptoms. The blood culture that were drawn before she was started on daptomycin has been negative so far. If those remain to be negative that will point more towards possible contamination, not true bacteremia and Dapto may be discontinued at that point. 2. The patient with likely aspiration pneumonia. Currently covered with Zosyn. If patient continues to improve will transition to oral. We will try to obtain a sputum. Continue supportive care. MMODL / IJN: [id number] /
[2018-04-24 19:13] LABS: Glucose,Whole Blood 204 mg/dL (75-99)
[2018-04-24 20:33] LABS: Glucose,Whole Blood 177 mg/dL (75-99)
[2018-04-24] MEDS: ALPRAZolam 0.25 MG TAB PO PRN (21:52)
[2018-04-25] MEDS: methylPREDNISolone SOD SUCCI 125 MG/2 ML VIAL IV SCH ×2 (01:01→05:48)
[2018-04-25] MEDS: PIPERACILLIN-TAZOBACTAM 3.375 GM in SODIUM CHLORIDE 0.9% 100 ML IVPB SCH ×3 (04:33→21:46)
[2018-04-25 05:13] LABS: Anabasine Urine <2.0 ng/mL (<2.0)
[2018-04-25 07:03] LABS: Glucose,Whole Blood 165 mg/dL (75-99)
[2018-04-25] MEDS: FUROSEMIDE 20 MG TAB PO SCH ×3 (07:17→15:15)
[2018-04-25] MEDS: VANCOMYCIN 1,000 MG in SODIUM CHLORIDE 0.9% 250 ML IVPB SCH (07:19)
[2018-04-25 07:21] LABS: Anisocytosis Slight; Basophils % (A) 0 %; Eosinophils % (A) 0 %; HCT 28.1 % (34.0-46.0); HGB 8.7 gm/dL (11.4-16.0); Hypochromasia Marked; Lymphocytes # (A) 0.9 k/uL (1.0-4.8); Lymphocytes % (A) 7 %; MCH 25.1 pg (25.0-35.0); MCHC 30.8 g/dL (31.0-37.0); MCV 81.3 fL (80.0-100.0); Mean Platelet Volume 7.1; Microcytosis Slight; Monocytes # (A) 0.9 k/uL (0-1.0); Monocytes % (A) 7 %; Neutrophils % (A) 84 %; Platelet Count 435 k/uL (150-450); Poikilocytosis Slight; RBC 3.46 m/uL (3.80-5.40); RDW 18.1 % (11.5-15.5); WBC 11.9 k/uL (3.8-10.6)
[2018-04-25 07:33] LABS: Anion Gap 6 mmol/L; Blood Urea Nitrogen 27 mg/dL (7-17); Calcium 8.4 mg/dL (8.4-10.2); Carbon Dioxide 29 mmol/L (22-30); Chloride 102 mmol/L (98-107); Glucose 138 mg/dL (74-99); Magnesium 1.8 mg/dL (1.6-2.3); Phosphorus 3.7 mg/dL (2.5-4.5); Potassium 3.7 mmol/L (3.5-5.1); Sodium 137 mmol/L (137-145)
[2018-04-25] MEDS: SODIUM CHLORIDE 0.9% 1,000 ML IV SCH (07:33)
[2018-04-25] MEDS: INSULIN ASPART 100 UNIT/ML 1 ML 10 ML VIAL SQ SCH ×4 (07:41→21:46)
[2018-04-25] MEDS: LISINOPRIL 2.5 MG TAB PO SCH (08:35)
[2018-04-25] MEDS: SPIRONOLACTONE 25 MG TAB PO SCH ×2 (08:35→21:47)
[2018-04-25] MEDS: PRIMIDONE 50 MG TAB PO SCH ×3 (08:36→21:47)
[2018-04-25] MEDS: DONEPEZIL 5 MG TAB PO SCH (08:36)
[2018-04-25] MEDS: LACOSAMIDE 50 MG TABLET PO SCH ×2 (08:36→21:47)
[2018-04-25] MEDS: ASPIRIN 81 MG PO SCH (08:36)
[2018-04-25] MEDS: ISOSORBIDE MONONITRATE ER 30 MG TAB.ER.24H PO SCH (08:36)
[2018-04-25] MEDS: GABAPENTIN 400 MG CAP PO SCH ×4 (08:36→21:47)
[2018-04-25] MEDS: FLUDROCORTISONE 0.1 MG TAB PO SCH (08:36)
[2018-04-25] MEDS: METOPROLOL SUCCINATE (ER) 50 MG TAB.ER.24H PO SCH (08:36)
[2018-04-25] MEDS: CYANOCOBALAMIN 500 MCG TAB PO SCH (08:37)
[2018-04-25] MEDS: FAMOTIDINE 20 MG/2 ML VIAL IV SCH (08:37)
[2018-04-25] MEDS: FORMOTEROL FUMARATE 20 MCG/2 ML NEBU INHALATION SCH ×2 (08:43→20:48)
[2018-04-25] MEDS: BUDESONIDE 1 MG/2 ML NEBU INHALATION SCH ×2 (08:43→20:49)
[2018-04-25] MEDS: IPRATROPIUM-ALBUTEROL 3 ML NEB INHALATION SCH ×4 (08:43→20:48)
[2018-04-25] MEDS ORDERED: POTASSIUM CHLORIDE 10 MEQ in WATER FOR INJECTION 1 100ML.BAG IVPB SCH (09:15)
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
[2018-04-25] MEDS: PARoxetine 20 MG TAB PO SCH (09:57)
[2018-04-25] MEDS: MAGNESIUM SULFATE-D5W PMX 1 GM in DEXTROSE/WATER 1 100ML.BAG IVPB SCH ×2 (09:58→11:16)
[2018-04-25] MEDS: POTASSIUM CHLORIDE 10 MEQ in WATER FOR INJECTION 1 100ML.BAG IVPB SCH ×4 (10:03→14:22)
[2018-04-25 11:53] LABS: Glucose,Whole Blood 162 mg/dL (75-99)
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
--- NOTE | 2018-04-25 13:35 | CDI ---
Last Revision, May 2017 Documentation Clarification Form Date: 04/25/2018 1:21:13 PM From: Katie NicolasJUSTIN, CCDS Admit Date: 04/21/2018 7:23:00 AM Patient Name: Kasandra Benítez Visit Number: [id number] Discharge Date: ATTENTION: The Clinical Documentation Specialists (CDI) and [facility] Coding Staff appreciate your assistance in clarifying documentation. Please respond to the clarification below the line at the bottom and electronically sign. The CDI & [facility] Coding staff will review the response and follow-up if needed. Please note: Queries are made part of the Legal Health Record. If you have any questions, please contact the author of this message via ITS. Duarte Germain , DO: Per the 04/23 progress note: " The patient is somewhat cachectic." History/Risk Factors: COPD, CHF, Pneumonia, Hypertension, multiple hospital admissions, recently discharged 04/20 to home with home care. Current smoker. Clinical Indicators: Admitted with acute on chronic hypoxic & hypercapnic respiratory failure secondary to pulmonary edema & pneumonia. Labs: Hgb 11.2*, Lactic Acid 4.6^^, Glucose 397^, Elevated troponins. Total protein 7.9, Albumin 4.3. Current BMI: 17.4 Nutrition Assessment: Intake poor, initially NPO. On PPI, Steroids, Statin. Underweight, Wt 49.6 kg. On gluten free & dysphagia diet. Treatment: Initially admitted to ICU on BiPAP, Telemetry, Accuchecks, Heart healthy & gluten free dysphagia diet. Albuterol INH, Atrovent INH, IV solumedrol, IV Nitro, IV Ms, IV Zosyn, IV Vanco , po Lasix. Activity: HOB up, log roll, Semi-fowlers, 1 person assist. Incontinence. In your professional opinion, can you please clarify if these findings signify one of the following conditions? Mild Protein-Calorie Malnutrition Moderate Protein-Calorie Malnutrition Severe Protein-Calorie Malnutrition Other condition, please specify Unable to determine MTDD
[2018-04-25 14:13] VITALS: BMI 17.4
[2018-04-25] MEDS: methylPREDNISolone SOD SUCCI 40 MG/ML 1 ML VIAL IV SCH ×2 (15:15→21:47)
[2018-04-25 17:22] LABS: Glucose,Whole Blood 133 mg/dL (75-99)
[2018-04-25 20:23] LABS: Glucose,Whole Blood 165 mg/dL (75-99)
[2018-04-25] MEDS: FAMOTIDINE 20 MG TAB PO SCH (21:46)
--- NOTE | 2018-04-25 22:46 | PN ---
PROGRESS NOTE DATE OF SERVICE: 04/25/2018. REASON FOR FOLLOWUP: 1. Positive blood culture with VRE. 2. Pneumonia. INTERVAL HISTORY: The patient is currently afebrile. She seemed to be breathing more comfortably on room air. She is able to tolerate her diet without any choking. Did have mild cough, but not bringing up any sputum. No abdominal pain, no diarrhea. EXAMINATION: Blood pressure is 123/65 with a pulse of 89, temperature of 97.9. She is 94% on room air. GENERAL DESCRIPTION: A middle aged female lying in bed in no distress. RESPIRATORY: Unlabored breathing with decreased breath sounds. No wheeze. HEART: S1, S2. Regular rate and rhythm. ABDOMEN: Soft, no tenderness. LABS: Hemoglobin is 8.7 with white count 11.9, BUN of 27, creatinine 0.73. DIAGNOSTIC IMPRESSION AND PLAN: 1. Patient with VRE positive blood cultures which were drawn on admission, only once set is positive. She did have repeat blood cultures done before she was started on clindamycin which have been negative. UA has been negative. Patient's abdominal symptoms likely pointing toward contamination. Recommend discontinue tobramycin after tomorrow's dose if blood culture remains to be negative. 2. The patient with pneumonia, currently on Zosyn, can be transitioned to oral Avelox for about 5 to 7 days to finish course of therapy. Continue supportive care. MMODL / IJN: [id number] /
[2018-04-26] MEDS: PIPERACILLIN-TAZOBACTAM 3.375 GM in SODIUM CHLORIDE 0.9% 100 ML IVPB SCH ×3 (04:47→20:20)
[2018-04-26] MEDS: INSULIN ASPART 100 UNIT/ML 1 ML 10 ML VIAL SQ SCH ×4 (07:08→20:46)
[2018-04-26] MEDS: GABAPENTIN 400 MG CAP PO SCH ×4 (07:09→20:35)
[2018-04-26] MEDS: SPIRONOLACTONE 25 MG TAB PO SCH ×2 (07:10→20:35)
[2018-04-26 07:12] LABS: Glucose,Whole Blood 116 mg/dL (75-99)
[2018-04-26] MEDS: FAMOTIDINE 20 MG TAB PO SCH ×2 (07:12→20:34)
[2018-04-26] MEDS: FUROSEMIDE 20 MG TAB PO SCH ×2 (07:12→15:16)
[2018-04-26] MEDS: LISINOPRIL 2.5 MG TAB PO SCH (07:12)
[2018-04-26] MEDS: PARoxetine 20 MG TAB PO SCH (07:12)
[2018-04-26] MEDS: ISOSORBIDE MONONITRATE ER 30 MG TAB.ER.24H PO SCH (07:13)
[2018-04-26] MEDS: PRIMIDONE 50 MG TAB PO SCH ×3 (07:13→20:34)
[2018-04-26] MEDS: CYANOCOBALAMIN 500 MCG TAB PO SCH (07:13)
[2018-04-26] MEDS: METOPROLOL SUCCINATE (ER) 50 MG TAB.ER.24H PO SCH (07:13)
[2018-04-26] MEDS: LACOSAMIDE 50 MG TABLET PO SCH ×2 (07:14→20:34)
[2018-04-26] MEDS: methylPREDNISolone SOD SUCCI 40 MG/ML 1 ML VIAL IV SCH ×3 (07:17→20:34)
[2018-04-26] MEDS: FORMOTEROL FUMARATE 20 MCG/2 ML NEBU INHALATION SCH ×2 (07:28→19:54)
[2018-04-26] MEDS: BUDESONIDE 1 MG/2 ML NEBU INHALATION SCH ×2 (07:28→19:54)
[2018-04-26] MEDS: IPRATROPIUM-ALBUTEROL 3 ML NEB INHALATION SCH ×4 (07:28→19:55)
[2018-04-26] MEDS: SODIUM CHLORIDE 0.9% 1,000 ML IV SCH (08:27)
[2018-04-26] MEDS: DONEPEZIL 5 MG TAB PO SCH (08:27)
[2018-04-26] MEDS: FLUDROCORTISONE 0.1 MG TAB PO SCH (08:27)
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
[2018-04-26 12:16] LABS: Glucose,Whole Blood 115 mg/dL (75-99)
--- NOTE | 2018-04-26 12:59 | PN ---
PROGRESS NOTE DATE OF SERVICE: 04/26/2018 REASON FOR FOLLOWUP: 1. Positive blood culture with VRE. 2. Pneumonia. INTERVAL HISTORY: The patient is currently afebrile. She is breathing more comfortably. Denies having any chest pain. Occasional cough. No nausea, no vomiting. No abdominal pain and no diarrhea. PHYSICAL EXAMINATION: On examination, blood pressure 149/75 with pulse 64, temperature 97.5. She is 91% on 2 L nasal cannula. General description is a middle-aged female up in the chair, in no distress. RESPIRATORY SYSTEM: Unlabored breathing. Some decreased breath sounds at the bases, no wheeze. HEART: S1, S2. Regular rate and rhythm. ABDOMEN: Soft, no tenderness. LABS: No new labs have been obtained today. Blood culture repeat on 04/23 has been negative. DIAGNOSTIC IMPRESSION AND PLAN: 1. Patient with VRE bacteremia in the patient currently with no clear source of this bacteremia. Her blood cultures that were done prior to starting daptomycin has been negative and this organism is resistant to . Recommend to daptomycin on discharge. 2. Patient with possible pneumonia currently on Zosyn, can be transitioned to oral Avelox for a short course to finish course therapy. Continue supportive care. MMODL / IJN: [id number] /
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
[2018-04-26 17:55] LABS: Glucose,Whole Blood 224 mg/dL (75-99)
[2018-04-26 19:31] LABS: Glucose,Whole Blood 222 mg/dL (75-99)
[2018-04-27] MEDS: PIPERACILLIN-TAZOBACTAM 3.375 GM in SODIUM CHLORIDE 0.9% 100 ML IVPB SCH ×3 (03:20→21:41)
[2018-04-27] MEDS: methylPREDNISolone SOD SUCCI 40 MG/ML 1 ML VIAL IV SCH ×3 (05:32→21:18)
[2018-04-27 06:09] LABS: Glucose,Whole Blood 88 mg/dL (75-99)
[2018-04-27] MEDS: FORMOTEROL FUMARATE 20 MCG/2 ML NEBU INHALATION SCH ×2 (07:15→18:44)
[2018-04-27] MEDS: BUDESONIDE 1 MG/2 ML NEBU INHALATION SCH ×2 (07:15→18:44)
[2018-04-27] MEDS: IPRATROPIUM-ALBUTEROL 3 ML NEB INHALATION SCH ×4 (07:15→18:44)
--- NOTE | 2018-04-27 09:13 | P.PN ---
Progress Note - Text Progress Note Date: 04/27/18 Patient seen and examined at the bedside. Per nursing documentation, patient pointed to her chest and when nursing asked her if she was having chest pain she said yes. Dr. Figueredo was notified. Echocardiogram was ordered for this morning. Troponin level was performed which was 0.063, which is trending down from troponins upon admission. When evaluating patient this morning she denies having chest pain yesterday. She reports her chest was dry and itchy and was wanting lotion to be applied. Patient denies any shortness of breath or chest pain this morning. Her vitals remain stable. Patient was cleared for discharge to [facility] yesterday. Anticipate discharge today to [facility] this afternoon. Nurse practitioner note has been reviewed by physician. Signing provider agrees with the documented findings, assessment, and plan of care.
[2018-04-27] MEDS: GABAPENTIN 400 MG CAP PO SCH ×4 (09:37→21:19)
[2018-04-27] MEDS: PARoxetine 20 MG TAB PO SCH (09:37)
[2018-04-27] MEDS: SPIRONOLACTONE 25 MG TAB PO SCH ×2 (09:38→21:39)
[2018-04-27] MEDS: CYANOCOBALAMIN 500 MCG TAB PO SCH (09:38)
[2018-04-27] MEDS: LISINOPRIL 2.5 MG TAB PO SCH (09:38)
[2018-04-27] MEDS: FAMOTIDINE 20 MG TAB PO SCH ×2 (09:38→21:18)
[2018-04-27] MEDS: FUROSEMIDE 20 MG TAB PO SCH ×2 (09:38→15:24)
[2018-04-27] MEDS: LACOSAMIDE 50 MG TABLET PO SCH ×2 (09:38→21:18)
[2018-04-27] MEDS: PRIMIDONE 50 MG TAB PO SCH ×3 (09:38→21:18)
[2018-04-27] MEDS: ISOSORBIDE MONONITRATE ER 30 MG TAB.ER.24H PO SCH (09:38)
[2018-04-27] MEDS: METOPROLOL SUCCINATE (ER) 50 MG TAB.ER.24H PO SCH (09:38)
[2018-04-27] MEDS: DONEPEZIL 5 MG TAB PO SCH (09:39)
[2018-04-27] MEDS: FLUDROCORTISONE 0.1 MG TAB PO SCH (09:40)
[2018-04-27] MEDS: INSULIN ASPART 100 UNIT/ML 1 ML 10 ML VIAL SQ SCH ×4 (09:40→21:18)
--- NOTE | 2018-04-27 11:45 | ECHOF ---
Referral Reason:elevated troponin levels and possible chest pain MEASUREMENTS -------- HEIGHT: 165.1 cm WEIGHT: 47.6 kg BP: 121/80 RVIDd: 3.0 cm (< 3.3) IVSd: 1.1 cm (0.6 - 1.1) LVIDd: 4.1 cm (3.9 - 5.3) LVPWd: 1.1 cm (0.6 - 1.1) IVSs: 1.6 cm LVIDs: 2.8 cm LVPWs: 1.7 cm LA Diam: 3.1 cm (2.7 - 3.8) LAESV Index (A-L): 18.62 ml/m Ao Diam: 2.7 cm (2.0 - 3.7) AV Cusp: 1.7 cm (1.5 - 2.6) MV EXCURSION: 12.495 mm (> 18.000) MV EF SLOPE: 35 mm/s (70 - 150) EPSS: 0.9 cm MV E Ricki: 1.47 m/s MV DecT: 268 ms MV A Ricki: 1.32 m/s MV E/A Ratio: 1.11 RAP: 5.00 mmHg RVSP: 35.73 mmHg FINDINGS -------- Sinus rhythm. This was a technically adequate study. The left ventricular size is normal. There is borderline concentric left ventricular hypertrophy. Overall left ventricular systolic function is low-normal with, an EF between 50 - 55 %. The right ventricle is normal in size. The left atrial size is normal. The right atrium is normal in size. There is mild aortic valve sclerosis. The mitral valve leaflets are mildly thickened. Moderate mitral annular calcification present. No mitral regurgitation. The peak and mean MV gradients are 12.18mmHg 4.25mmHg as measured by dopple r. MV repair Mild tricuspid regurgitation present. There is mild pulmonary hypertension. The right ventricular systolic pressure, as measured by Doppler, is 35.73mmHg. TR repair Trace/mild (physiologic) pulmonic regurgitation. The aortic root size is normal. Normal inferior vena cava with normal inspiratory collapse consistent with estimated right atrial pre ssure of 5 mmHg. There is no pericardial effusion. CONCLUSIONS -------- 1. Sinus rhythm. 2. This was a technically adequate study. 3. The left ventricular size is normal. 4. There is borderline concentric left ventricular hypertrophy. 5. Overall left ventricular systolic function is low-normal with, an EF between 50 - 55 %. 6. The right ventricle is normal in size. 7. The left atrial size is normal. 8. The right atrium is normal in size. 9. There is mild aortic valve sclerosis. 10. The mitral valve leaflets are mildly thickened. 11. Moderate mitral annular calcification present. 12. No mitral regurgitation. 13. The peak and mean MV gradients are 12.18mmHg 4.25mmHg as measured by doppler. 14. MV repair 15. Mild tricuspid regurgitation present. 16. There is mild pulmonary hypertension. 17. The right ventricular systolic pressure, as measured by Doppler, is 35.73mmHg. 18. TR repair 19. Trace/mild (physiologic) pulmonic regurgitation. 20. The aortic root size is normal. 21. Normal inferior vena cava with normal inspiratory collapse consistent with estimated right atrial pressure of 5 mmHg. 22. There is no pericardial effusion. DRAFTER CARTOGRAPHIC: Kellen Clarke RDCS
[2018-04-27 11:53] LABS: Glucose,Whole Blood 98 mg/dL (75-99)
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
[2018-04-27] MEDS: SODIUM CHLORIDE 0.9% 1,000 ML IV SCH (15:01)
[2018-04-27 17:16] LABS: Glucose,Whole Blood 120 mg/dL (75-99)
--- NOTE | 2018-04-27 20:06 | PN ---
PROGRESS NOTE DATE OF SERVICE: 04/27/2018. REASON FOR FOLLOW UP: 1. Positive blood culture with VRE. 2. Pneumonia. INTERVAL HISTORY: The patient is currently afebrile. She seems to be breathing more comfortably. Denies significant chest pain. Occasional cough. No abdominal pain. No diarrhea. EXAMINATION: Blood pressure 101/64, pulse of 75, temperature 98.6. She is 94% 3 L nasal cannula. General description is a middle-aged female up in the bed in no distress. RESPIRATORY SYSTEM: Unlabored breathing. Some coarse breath sounds. No wheeze. HEART: S1, S2. Regular rate and rhythm. ABDOMEN: Soft, no tenderness. LABS: No new labs been obtained today. Blood cultures repeat on 06/23 has been negative. DIAGNOSTIC IMPRESSION AND PLAN: 1. Patient with a positive blood culture with VRE which could be more likely contamination as the patient has no clinical source to go along with it. The patient did have repeat blood cultures before she was given of daptomycin and those have been negative. Recommend to discontinue daptomycin on discharge. 2. Patient with possible pneumonia. Currently covered with Zosyn. Recommend a short course of oral Levaquin on discharge. Continue supportive care. MMODL / IJN: [id number] /
[2018-04-27 20:11] LABS: Glucose,Whole Blood 230 mg/dL (75-99)
[2018-04-27 20:53] VITALS: RESP 16
[2018-04-28] MEDS: PIPERACILLIN-TAZOBACTAM 3.375 GM in SODIUM CHLORIDE 0.9% 100 ML IVPB SCH ×2 (04:22→11:14)
[2018-04-28] MEDS: methylPREDNISolone SOD SUCCI 40 MG/ML 1 ML VIAL IV SCH (05:46)
[2018-04-28 07:22] LABS: Glucose,Whole Blood 112 mg/dL (75-99)
[2018-04-28] MEDS: IPRATROPIUM-ALBUTEROL 3 ML NEB INHALATION SCH ×2 (08:32→11:29)
[2018-04-28] MEDS: FORMOTEROL FUMARATE 20 MCG/2 ML NEBU INHALATION SCH (08:32)
[2018-04-28] MEDS: BUDESONIDE 1 MG/2 ML NEBU INHALATION SCH (08:33)
[2018-04-28 08:43] VITALS: BP 107/69; TEMP 99.6
[2018-04-28] MEDS ORDERED: ASPIRIN 81 MG PO SCH (09:00)
[2018-04-28] MEDS: FLUDROCORTISONE 0.1 MG TAB PO SCH (11:11)
[2018-04-28] MEDS: PARoxetine 20 MG TAB PO SCH (11:11)
[2018-04-28] MEDS: LACOSAMIDE 50 MG TABLET PO SCH (11:11)
[2018-04-28] MEDS: FAMOTIDINE 20 MG TAB PO SCH (11:11)
[2018-04-28] MEDS: ISOSORBIDE MONONITRATE ER 30 MG TAB.ER.24H PO SCH (11:12)
[2018-04-28] MEDS: SPIRONOLACTONE 25 MG TAB PO SCH (11:12)
[2018-04-28] MEDS: GABAPENTIN 400 MG CAP PO SCH (11:12)
[2018-04-28] MEDS: FUROSEMIDE 20 MG TAB PO SCH (11:12)
[2018-04-28] MEDS: PRIMIDONE 50 MG TAB PO SCH (11:12)
[2018-04-28] MEDS: CYANOCOBALAMIN 500 MCG TAB PO SCH (11:13)
[2018-04-28] MEDS: METOPROLOL SUCCINATE (ER) 50 MG TAB.ER.24H PO SCH (11:13)
[2018-04-28] MEDS: DONEPEZIL 5 MG TAB PO SCH (11:14)
[2018-04-28 11:43] VITALS: PULSE 73
[2018-04-28 11:52] LABS: Glucose,Whole Blood 96 mg/dL (75-99)
--- NOTE | 2018-04-28 11:56 | P.PN ---
Progress Note - Text Progress Note Date: 04/28/18 Patient seen and examined this morning at the bedside. Patient was refusing ECF yesterday. Discussed complexity of her care and how it is a lot for her to handle right now. Patient verbalized understanding and acknowledged the need for ECF. Patient is agreeable to go to [facility]. Patients daughter Chantelle was given information to go to court to petition for guardianship by social work. Patient remains stable and will be discharged to [facility] today via wheelchair van.
[2018-04-28] MEDS: INSULIN ASPART 100 UNIT/ML 1 ML 10 ML VIAL SQ SCH ×2 (11:58→13:03)
[2018-04-28] MEDS: SODIUM CHLORIDE 0.9% 1,000 ML IV SCH (11:59)
[2018-04-28] MEDS: LISINOPRIL 2.5 MG TAB PO SCH (13:03)
--- NOTE | 2018-04-28 15:49 | PN ---
PROGRESS NOTE DATE OF SERVICE: 04/28/2018 REASON FOR FOLLOWUP: 1. Positive blood culture with VRE. 2. Pneumonia. INTERVAL HISTORY: The patient was seen on rounds this morning. The patient has been afebrile. She is breathing comfortably. Denies having any chest pain or shortness of breath. Occasional cough. No abdominal pain and no diarrhea. PHYSICAL EXAMINATION: Blood pressure 107/69 with a pulse of 66, temperature 99.6. She is 99% on 3 L nasal cannula. General description is a middle-aged female up in the chair in no distress. RESPIRATORY SYSTEM: Unlabored breathing. Some decreased breath sounds in the bases. No wheeze. HEART: S1, S2. Regular rate and rhythm. ABDOMEN: Soft. No tenderness. LAB: Repeat blood culture from 04/23 has been negative. Sputum was not provided. DIAGNOSTIC IMPRESSION AND PLAN: 1. Patient with vancomycin-resistant Enterococcus-positive blood culture in a patient who clinically does not have a clear focus for this bacteremia, with a question of possible contamination. She received about a week of IV daptomycin, which should be more than enough for mild infection. Daptomycin will be discontinued. 2. Patient with pneumonia treated with Zosyn, finishing therapy with a short course of oral Avelox. Continue with supportive care. MMODL / IJN: [id number] /
== END 2018-04-28 13:25 | DRG 291 ==
LOC: EC 04:21 → 2SICU 07:23 → 4SSUR 04-25 02:40
PROVIDERS: ADMIT Family Medicine; ATTEND Family Medicine
DX: I11.0 Hypertensive heart disease with heart failure (principal); J96.21 Acute and chronic respiratory failure with hypoxia; J96.22 Acute and chronic respiratory failure with hypercapnia; J69.0 Pneumonitis due to inhalation of food and vomit; I16.1 Hypertensive emergency; J44.0 Chronic obstructive pulmonary disease with (acute) lower respiratory infection; J44.1 Chronic obstructive pulmonary disease with (acute) exacerbation; R64 Cachexia; E44.1 Mild protein-calorie malnutrition; Z68.1 Body mass index [BMI] 19.9 or less, adult; E87.2 Acidosis; E78.5 Hyperlipidemia, unspecified; F17.200 Nicotine dependence, unspecified, uncomplicated; F32.9 Major depressive disorder, single episode, unspecified; F41.1 Generalized anxiety disorder; H40.9 Unspecified glaucoma; I25.10 Atherosclerotic heart disease of native coronary artery without angina pectoris; I25.2 Old myocardial infarction; I25.5 Ischemic cardiomyopathy; I95.9 Hypotension, unspecified; I27.20 Pulmonary hypertension, unspecified; I49.3 Ventricular premature depolarization; I50.23 Acute on chronic systolic (congestive) heart failure; I69.320 Aphasia following cerebral infarction; K21.9 Gastro-esophageal reflux disease without esophagitis; K90.0 Celiac disease; M81.0 Age-related osteoporosis without current pathological fracture; I69.391 Dysphagia following cerebral infarction; R79.1 Abnormal coagulation profile; Z87.820 Personal history of traumatic brain injury; Z79.02 Long term (current) use of antithrombotics/antiplatelets; Z79.51 Long term (current) use of inhaled steroids; Z79.899 Other long term (current) drug therapy; Z82.49 Family history of ischemic heart disease and other diseases of the circulatory system; Z83.3 Family history of diabetes mellitus; Z85.3 Personal history of malignant neoplasm of breast; Z91.19 Patient's noncompliance with other medical treatment and regimen; Z95.1 Presence of aortocoronary bypass graft; Z95.2 Presence of prosthetic heart valve; Z95.5 Presence of coronary angioplasty implant and graft; Z99.81 Dependence on supplemental oxygen; Z88.1 Allergy status to other antibiotic agents; Z88.8 Allergy status to other drugs, medicaments and biological substances
CPT/HCPCS: 36415; 36600; 71045; 80048; 80053; 80323; 82550; 82553; 82803; 82805; 83605; 83735; 83880; 84100; 84484; 85025; 85027; 85610; 85730; 87040; 87077; 87086; 87186; 93005; 93306; 94640; 94660; 94760; 96365; 96366; 96374; 99291

== ENCOUNTER 2018-05-11 03:52 | Inpatient (IN) | payer OTHER ==
[2018-05-11] MEDS: SODIUM CHLORIDE 0.9% 1,000 ML IV SCH ×2 (04:00→12:05)
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
[2018-05-11 04:02] LABS: Glucose,Whole Blood 237 mg/dL (75-99)
--- NOTE | 2018-05-11 04:23 | XR ---
EXAMINATION TYPE: XR chest 1V portable DATE OF EXAM: 05/11/2018 COMPARISON: 04/24/2018 HISTORY: Difficulty breathing TECHNIQUE: Single frontal view of the chest is obtained. FINDINGS: There is some coarsening of the markings throughout the lungs. There is evidence of pulmon richard emphysema. There is a patchy mild infiltrate in the right lower lobe. There is no heart failure. There are sternal wires. There are chest leads. There is slight blunting of right costophrenic angle. IMPRESSION: Pleural effusions or mostly cleared compared to old exam. There is mild pneumonia right lower lobe. COPD. No overt heart failure seen. Pulmonary fibrosis..
[2018-05-11 04:38] LABS: INR 1.1 (<1.2); Partial Thromboplastin Time 22.7 sec (22.0-30.0); Prothrombin Time 10.3 sec (9.0-12.0)
[2018-05-11 04:39] LABS: Anisocytosis Slight; Basophils % (A) 0 %; Eosinophils # (A) 0.3 k/uL (0-0.7); Eosinophils % (A) 2 %; HGB 9.1 gm/dL (11.4-16.0); Hypochromasia Marked; Lymphocytes # (A) 1.6 k/uL (1.0-4.8); Lymphocytes % (A) 9 %; MCH 24.7 pg (25.0-35.0); MCHC 30.3 g/dL (31.0-37.0); MCV 81.7 fL (80.0-100.0); Mean Platelet Volume 6.8; Microcytosis Slight; Monocytes # (A) 0.9 k/uL (0-1.0); Monocytes % (A) 5 %; Neutrophils # (A) 14.7 k/uL (1.3-7.7); Neutrophils % (A) 82 %; Platelet Count 379 k/uL (150-450); Poikilocytosis Slight; RBC 3.67 m/uL (3.80-5.40); RDW 18.6 % (11.5-15.5); WBC 17.8 k/uL (3.8-10.6)
[2018-05-11 04:47] LABS: ALT 47 U/L (9-52); AST 54 U/L (14-36); Albumin 3.8 g/dL (3.5-5.0); Alkaline Phosphatase 80 U/L (38-126); Anion Gap 10 mmol/L; Blood Urea Nitrogen 21 mg/dL (7-17); Calcium 8.6 mg/dL (8.4-10.2); Carbon Dioxide 28 mmol/L (22-30); Chloride 101 mmol/L (98-107); Glucose 221 mg/dL (74-99); Potassium 4.4 mmol/L (3.5-5.1); Sodium 139 mmol/L (137-145); Total Bilirubin 0.4 mg/dL (0.2-1.3); Total Protein 6.5 g/dL (6.3-8.2)
[2018-05-11] MEDS ORDERED: VANCOMYCIN IV PER PHARMACY 1 EACH MISC MISCELLANE PRN (05:01)
[2018-05-11] MEDS ORDERED: CEFEPIME 1 GM in SODIUM CHLORIDE 0.9% 50 ML IVPB STA (05:15)
[2018-05-11] MEDS ORDERED: VANCOMYCIN 1,000 MG in SODIUM CHLORIDE 0.9% 250 ML IVPB ONE (06:00)
[2018-05-11] MEDS: methylPREDNISolone SOD SUCCI 125 MG/2 ML VIAL IV SCH ×2 (06:25→12:02)
[2018-05-11] MEDS: IPRATROPIUM-ALBUTEROL 3 ML NEB INHALATION PRN ×2 (07:28→11:35)
[2018-05-11] MEDS: INSULIN ASPART 100 UNIT/ML 1 ML 10 ML VIAL SQ SCH ×4 (08:04→21:51)
[2018-05-11 08:13] LABS: Glucose,Whole Blood 125 mg/dL (75-99)
[2018-05-11 12:15] LABS: Appearance,Urine Clear (Clear); Bilirubin,Urine Negative (Negative); Blood,Urine Moderate (Negative); Color,Urine Light Yellow; Glucose,Urine (UA) Negative (Negative); Ketones,Urine Negative (Negative); Leukocyte Esterase,Urine Negative (Negative); Mucus,Urine Rare /hpf; Nitrite,Urine Negative (Negative); PH, Urine 7.5 (5.0-8.0); Protein,Urine Trace (Negative); RBC,Urine 9 /hpf (0-5); Specific Gravity,Urine 1.009 (1.001-1.035); Urobilinogen,Urine <2.0 mg/dL (<2.0)
[2018-05-11 12:16] LABS: Glucose,Whole Blood 174 mg/dL (75-99)
[2018-05-11] MEDS ORDERED: SELENIUM SULFIDE 2.5% TOPICAL SCH (12:45)
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
[2018-05-11] MEDS: predniSONE 10 MG TAB PO SCH (15:29)
[2018-05-11] MEDS: PRIMIDONE 50 MG TAB PO SCH ×2 (15:30→21:46)
[2018-05-11] MEDS: ACETAMINOPHEN TAB 325 MG TAB PO PRN (16:39)
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
[2018-05-11] MEDS: ALBUTEROL NEBULIZED 2.5 MG/3 ML INHALATION SCH ×2 (17:18→21:17)
[2018-05-11 17:22] LABS: Glucose,Whole Blood 201 mg/dL (75-99)
[2018-05-11] MEDS ORDERED: VANCOMYCIN 750 MG in SODIUM CHLORIDE 0.9% 250 ML IVPB SCH (18:00)
[2018-05-11] MEDS ORDERED: PROPRANOLOL 40 MG TAB PO SCH (21:00)
[2018-05-11 21:03] LABS: Glucose,Whole Blood 180 mg/dL (75-99)
[2018-05-11] MEDS: ATORVASTATIN 80 MG TAB PO SCH (21:45)
[2018-05-11] MEDS: LACOSAMIDE 50 MG TABLET PO SCH (21:46)
[2018-05-11] MEDS: LATANOPROST 0.005% OPHTH DROPS 2.5 ML BTL LEFT EYE SCH (21:46)
[2018-05-11] MEDS: AMOXIC-POT CLAV 875-125MG 1 EACH TAB PO SCH (22:43)
[2018-05-12] MEDS: ALBUTEROL NEBULIZED 2.5 MG/3 ML INHALATION SCH ×4 (07:30→19:34)
[2018-05-12 07:38] LABS: Glucose,Whole Blood 125 mg/dL (75-99)
[2018-05-12 07:48] LABS: Anisocytosis Slight; Basophils % (A) 0 %; Eosinophils # (A) 0.1 k/uL (0-0.7); Eosinophils % (A) 0 %; HCT 25.2 % (34.0-46.0); Hypochromasia Marked; Lymphocytes # (A) 1.2 k/uL (1.0-4.8); Lymphocytes % (A) 8 %; MCH 23.8 pg (25.0-35.0); MCHC 29.2 g/dL (31.0-37.0); MCV 81.6 fL (80.0-100.0); Mean Platelet Volume 6.3; Microcytosis Slight; Monocytes # (A) 1.1 k/uL (0-1.0); Monocytes % (A) 7 %; Neutrophils # (A) 13.6 k/uL (1.3-7.7); Neutrophils % (A) 83 %; Platelet Count 338 k/uL (150-450); Poikilocytosis Slight; RBC 3.09 m/uL (3.80-5.40); RDW 18.3 % (11.5-15.5); WBC 16.4 k/uL (3.8-10.6)
[2018-05-12 07:50] LABS: HGB 7.4 gm/dL (11.4-16.0)
[2018-05-12] MEDS: INSULIN ASPART 100 UNIT/ML 1 ML 10 ML VIAL SQ SCH ×4 (08:39→20:55)
[2018-05-12] MEDS: ALPRAZolam 0.25 MG TAB PO PRN (09:36)
--- NOTE | 2018-05-12 10:00 | XR ---
EXAMINATION TYPE: XR abdomen 1V DATE OF EXAM: 05/12/2018 COMPARISON: NONE HISTORY: Pain TECHNIQUE: Single supine KUB image of the abdomen is obtained FINDINGS: Small bowel demonstrates no evidence for dilatation or air fluid levels. Gas and fecal material is seen in non-distended colon. No convincing evidence for pneumoperitoneum. No unusual calcifications. The lung bases are clear. The osseous structures are intact. IMPRESSION: 1. Overall nonobstructive bowel gas pattern.
[2018-05-12] MEDS: AMOXIC-POT CLAV 875-125MG 1 EACH TAB PO SCH ×2 (10:01→21:34)
[2018-05-12] MEDS: METOPROLOL SUCCINATE (ER) 50 MG TAB.ER.24H PO SCH (10:01)
[2018-05-12] MEDS: PARoxetine 20 MG TAB PO SCH (10:01)
[2018-05-12] MEDS: FAMOTIDINE 20 MG TAB PO SCH (10:01)
[2018-05-12] MEDS: LACOSAMIDE 50 MG TABLET PO SCH ×2 (10:01→20:55)
[2018-05-12] MEDS: FLUDROCORTISONE 0.1 MG TAB PO SCH (10:01)
[2018-05-12] MEDS: DONEPEZIL 5 MG TAB PO SCH (10:01)
[2018-05-12] MEDS: ASPIRIN 81 MG PO SCH (10:01)
[2018-05-12] MEDS: SPIRONOLACTONE 25 MG TAB PO SCH (10:02)
[2018-05-12] MEDS: predniSONE 10 MG TAB PO SCH (10:02)
[2018-05-12] MEDS: PRIMIDONE 50 MG TAB PO SCH ×3 (10:02→20:55)
[2018-05-12 11:21] LABS: Glucose,Whole Blood 187 mg/dL (75-99)
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
[2018-05-12 16:37] LABS: Glucose,Whole Blood 175 mg/dL (75-99)
[2018-05-12 20:10] LABS: Glucose,Whole Blood 159 mg/dL (75-99)
[2018-05-12] MEDS: ATORVASTATIN 80 MG TAB PO SCH (20:55)
[2018-05-12] MEDS: LATANOPROST 0.005% OPHTH DROPS 2.5 ML BTL LEFT EYE SCH (20:55)
[2018-05-13 07:36] LABS: Glucose,Whole Blood 111 mg/dL (75-99)
[2018-05-13] MEDS: INSULIN ASPART 100 UNIT/ML 1 ML 10 ML VIAL SQ SCH ×4 (07:38→21:40)
[2018-05-13] MEDS: ALPRAZolam 0.25 MG TAB PO PRN ×2 (07:53→21:41)
[2018-05-13] MEDS: ALBUTEROL NEBULIZED 2.5 MG/3 ML INHALATION SCH ×2 (09:12→20:59)
[2018-05-13] MEDS: DONEPEZIL 5 MG TAB PO SCH (09:50)
[2018-05-13] MEDS: predniSONE 10 MG TAB PO SCH (09:50)
[2018-05-13] MEDS: METOPROLOL SUCCINATE (ER) 50 MG TAB.ER.24H PO SCH (09:51)
[2018-05-13] MEDS: PRIMIDONE 50 MG TAB PO SCH ×3 (09:51→21:41)
[2018-05-13] MEDS: LACOSAMIDE 50 MG TABLET PO SCH ×2 (09:51→21:40)
[2018-05-13] MEDS: FAMOTIDINE 20 MG TAB PO SCH (09:51)
[2018-05-13] MEDS: SPIRONOLACTONE 25 MG TAB PO SCH (09:51)
[2018-05-13] MEDS: ASPIRIN 81 MG PO SCH (09:52)
[2018-05-13] MEDS: PARoxetine 20 MG TAB PO SCH (09:52)
[2018-05-13] MEDS: AMOXIC-POT CLAV 875-125MG 1 EACH TAB PO SCH ×2 (09:52→21:45)
[2018-05-13] MEDS: FLUDROCORTISONE 0.1 MG TAB PO SCH (11:13)
[2018-05-13 12:14] LABS: Glucose,Whole Blood 164 mg/dL (75-99)
[2018-05-13 12:20] LABS: Anisocytosis Slight; Basophils % (A) 0 %; Eosinophils # (A) 0.1 k/uL (0-0.7); Eosinophils % (A) 1 %; HCT 24.1 % (34.0-46.0); HGB 7.1 gm/dL (11.4-16.0); Hypochromasia Marked; Lymphocytes # (A) 1.1 k/uL (1.0-4.8); Lymphocytes % (A) 6 %; MCH 23.9 pg (25.0-35.0); MCHC 29.5 g/dL (31.0-37.0); MCV 80.9 fL (80.0-100.0); Mean Platelet Volume 7.1; Microcytosis Slight; Monocytes # (A) 1.3 k/uL (0-1.0); Monocytes % (A) 8 %; Neutrophils # (A) 14.4 k/uL (1.3-7.7); Neutrophils % (A) 84 %; Platelet Count 333 k/uL (150-450); Poikilocytosis Slight; RBC 2.98 m/uL (3.80-5.40); RDW 18.3 % (11.5-15.5); WBC 17.2 k/uL (3.8-10.6)
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
[2018-05-13 12:29] LABS: Anion Gap 5 mmol/L; Blood Urea Nitrogen 30 mg/dL (7-17); Calcium 8.8 mg/dL (8.4-10.2); Carbon Dioxide 29 mmol/L (22-30); Chloride 106 mmol/L (98-107); Glucose 127 mg/dL (74-99); Potassium 4.2 mmol/L (3.5-5.1); Sodium 140 mmol/L (137-145)
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
--- NOTE | 2018-05-13 15:00 | US ---
EXAMINATION TYPE: US pelvic complete DATE OF EXAM: 05/13/2018 COMPARISON: NONE CLINICAL HISTORY: pain. TECHNIQUE: . Transabdominal sonographic images of the pelvis were acquired. Date of LMP: postmenopausal EXAM MEASUREMENTS: Uterus: 5.2 x 2.4 x 3.1 cm Endometrial Stripe: 0.2 cm Right Ovary: Not visualized Left Ovary: Not visualized Limited due to overlying, peristalsing bowel and multiple years postmenopausal. Vitale catheter clampe d to attempt to visualize pelvic organs. Unable to arouse pt to get consent for TV, thus not performe d. 1. Uterus: Anteverted wnl 2. Endometrium: wnl 3. Right Ovary: Obscured by overlying; peristalsing bowel gas 4. Left Ovary: Obscured by overlying; peristalsing bowel gas 5. Bilateral Adnexa: Obscured by overlying; peristalsing bowel gas 6. Posterior cul-de-sac: wnl IMPRESSION: No demonstrated abnormality in the pelvis. No endometrial thickening. No free fluid.
[2018-05-13] MEDS: IPRATROPIUM-ALBUTEROL 3 ML NEB INHALATION PRN ×2 (16:39→20:23)
[2018-05-13 17:47] LABS: Glucose,Whole Blood 184 mg/dL (75-99)
[2018-05-13 18:58] LABS: Anisocytosis Slight; HCT 27.8 % (34.0-46.0); Hypochromasia Marked; MCH 23.5 pg (25.0-35.0); MCHC 28.6 g/dL (31.0-37.0); MCV 82.2 fL (80.0-100.0); Mean Platelet Volume 7.5; Microcytosis Slight; Platelet Count 330 k/uL (150-450); Poikilocytosis Slight; RBC 3.39 m/uL (3.80-5.40); RDW 18.5 % (11.5-15.5); WBC 13.8 k/uL (3.8-10.6)
[2018-05-13 19:59] LABS: Glucose,Whole Blood 175 mg/dL (75-99)
[2018-05-13] MEDS: SYMBICORT 160-4.5 MCG INHALER INHALATION SCH (20:23)
[2018-05-13] MEDS: ATORVASTATIN 80 MG TAB PO SCH (21:40)
[2018-05-13] MEDS: LATANOPROST 0.005% OPHTH DROPS 2.5 ML BTL LEFT EYE SCH (21:40)
[2018-05-14 06:53] LABS: Glucose,Whole Blood 118 mg/dL (75-99)
[2018-05-14 07:45] LABS: Anisocytosis Slight; Basophils % (A) 0 %; Eosinophils # (A) 0.2 k/uL (0-0.7); Eosinophils % (A) 1 %; HCT 25.2 % (34.0-46.0); HGB 7.3 gm/dL (11.4-16.0); Hypochromasia Marked; Lymphocytes # (A) 1.8 k/uL (1.0-4.8); Lymphocytes % (A) 10 %; MCH 23.6 pg (25.0-35.0); MCHC 29.1 g/dL (31.0-37.0); MCV 80.9 fL (80.0-100.0); Microcytosis Slight; Monocytes # (A) 1.2 k/uL (0-1.0); Monocytes % (A) 7 %; Neutrophils % (A) 80 %; Platelet Count 351 k/uL (150-450); Poikilocytosis Slight; RBC 3.11 m/uL (3.80-5.40); RDW 18.1 % (11.5-15.5); WBC 17.6 k/uL (3.8-10.6)
[2018-05-14 07:54] LABS: Anion Gap 5 mmol/L; Blood Urea Nitrogen 28 mg/dL (7-17); Calcium 9.2 mg/dL (8.4-10.2); Carbon Dioxide 30 mmol/L (22-30); Chloride 105 mmol/L (98-107); Glucose 91 mg/dL (74-99); Potassium 4.5 mmol/L (3.5-5.1); Sodium 140 mmol/L (137-145)
[2018-05-14] MEDS: INSULIN ASPART 100 UNIT/ML 1 ML 10 ML VIAL SQ SCH ×4 (08:00→23:10)
[2018-05-14] MEDS: IPRATROPIUM-ALBUTEROL 3 ML NEB INHALATION PRN ×2 (08:59→12:17)
[2018-05-14] MEDS: SYMBICORT 160-4.5 MCG INHALER INHALATION SCH ×2 (09:00→20:35)
[2018-05-14] MEDS: DONEPEZIL 5 MG TAB PO SCH (09:21)
[2018-05-14] MEDS: predniSONE 10 MG TAB PO SCH (09:21)
[2018-05-14] MEDS: PRIMIDONE 50 MG TAB PO SCH ×3 (09:21→23:10)
[2018-05-14] MEDS: PARoxetine 20 MG TAB PO SCH (09:22)
[2018-05-14] MEDS: FLUDROCORTISONE 0.1 MG TAB PO SCH (09:22)
[2018-05-14] MEDS: METOPROLOL SUCCINATE (ER) 50 MG TAB.ER.24H PO SCH (09:23)
[2018-05-14] MEDS: LACOSAMIDE 50 MG TABLET PO SCH ×2 (09:23→23:11)
[2018-05-14] MEDS: FAMOTIDINE 20 MG TAB PO SCH (09:23)
[2018-05-14] MEDS: AMOXIC-POT CLAV 875-125MG 1 EACH TAB PO SCH (09:23)
[2018-05-14] MEDS: ASPIRIN 81 MG PO SCH (09:23)
[2018-05-14] MEDS: SPIRONOLACTONE 25 MG TAB PO SCH (09:24)
[2018-05-14] MEDS: ALPRAZolam 0.25 MG TAB PO PRN ×2 (09:28→23:11)
[2018-05-14] MEDS: ACETAMINOPHEN TAB 325 MG TAB PO PRN ×2 (09:28→23:11)
[2018-05-14 11:45] LABS: Glucose,Whole Blood 134 mg/dL (75-99)
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
[2018-05-14 17:12] LABS: Glucose,Whole Blood 159 mg/dL (75-99)
[2018-05-14 20:30] LABS: Glucose,Whole Blood 200 mg/dL (75-99)
[2018-05-14] MEDS: ATORVASTATIN 80 MG TAB PO SCH (23:10)
[2018-05-14] MEDS: LATANOPROST 0.005% OPHTH DROPS 2.5 ML BTL LEFT EYE SCH (23:12)
[2018-05-15] MEDS: AMOXIC-POT CLAV 875-125MG 1 EACH TAB PO SCH (03:34)
[2018-05-15] MEDS: SYMBICORT 160-4.5 MCG INHALER INHALATION SCH ×2 (07:48→18:59)
[2018-05-15] MEDS: FAMOTIDINE 20 MG TAB PO SCH (07:51)
[2018-05-15] MEDS: METOPROLOL SUCCINATE (ER) 50 MG TAB.ER.24H PO SCH (07:51)
[2018-05-15] MEDS: PARoxetine 20 MG TAB PO SCH (07:51)
[2018-05-15] MEDS: LACOSAMIDE 50 MG TABLET PO SCH ×2 (07:51→22:47)
[2018-05-15] MEDS: ASPIRIN 81 MG PO SCH (07:51)
[2018-05-15] MEDS: PRIMIDONE 50 MG TAB PO SCH ×3 (07:51→22:47)
[2018-05-15] MEDS: predniSONE 10 MG TAB PO SCH (07:52)
[2018-05-15] MEDS: SPIRONOLACTONE 25 MG TAB PO SCH (07:52)
[2018-05-15] MEDS: ACETAMINOPHEN TAB 325 MG TAB PO PRN (07:52)
[2018-05-15 07:56] LABS: Glucose,Whole Blood 107 mg/dL (75-99)
[2018-05-15 09:14] LABS: Anisocytosis Slight; Basophils % (A) 0 %; Eosinophils # (A) 0.4 k/uL (0-0.7); Eosinophils % (A) 3 %; HCT 25.5 % (34.0-46.0); HGB 7.3 gm/dL (11.4-16.0); Hypochromasia Marked; Lymphocytes # (A) 1.9 k/uL (1.0-4.8); Lymphocytes % (A) 12 %; MCH 23.1 pg (25.0-35.0); MCHC 28.8 g/dL (31.0-37.0); Mean Platelet Volume 6.6; Microcytosis Slight; Monocytes # (A) 0.9 k/uL (0-1.0); Monocytes % (A) 6 %; Neutrophils # (A) 12.5 k/uL (1.3-7.7); Neutrophils % (A) 78 %; Platelet Count 402 k/uL (150-450); Poikilocytosis Slight; RBC 3.18 m/uL (3.80-5.40); RDW 17.7 % (11.5-15.5)
[2018-05-15] MEDS: INSULIN ASPART 100 UNIT/ML 1 ML 10 ML VIAL SQ SCH ×4 (09:57→22:48)
[2018-05-15] MEDS: DONEPEZIL 5 MG TAB PO SCH (09:59)
[2018-05-15] MEDS: FLUDROCORTISONE 0.1 MG TAB PO SCH (09:59)
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
[2018-05-15] MEDS: IPRATROPIUM-ALBUTEROL 3 ML NEB INHALATION PRN ×2 (11:07→18:59)
[2018-05-15 11:22] LABS: Glucose,Whole Blood 170 mg/dL (75-99)
--- NOTE | 2018-05-15 14:51 | XR ---
EXAMINATION TYPE: XR Hip Complete LT DATE OF EXAM: 05/15/2018 CLINICAL HISTORY: Left hip pain TECHNIQUE: AP and frogleg views of the left hip are obtained. COMPARISON: None. FINDINGS: There is no acute fracture/dislocation evident in the left hip. The joint space in the le ft hip appears maintained The overlying soft tissue appears unremarkable. There is a small left cam d eformity at the left lateral femoral head neck junction demonstrated as an osseous protuberance. Bila teral common iliac vascular stents are noted. IMPRESSION: There is no acute fracture or dislocation in the left hip. Small left cam deformity that may predispose this patient to internal impingement.
[2018-05-15 16:19] VITALS: BMI 19.3
[2018-05-15 16:31] LABS: Glucose,Whole Blood 180 mg/dL (75-99)
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
[2018-05-15 20:44] LABS: Glucose,Whole Blood 192 mg/dL (75-99)
[2018-05-15] MEDS: ATORVASTATIN 80 MG TAB PO SCH (22:47)
[2018-05-15] MEDS: LATANOPROST 0.005% OPHTH DROPS 2.5 ML BTL LEFT EYE SCH (22:47)
[2018-05-15] MEDS: ALPRAZolam 0.25 MG TAB PO PRN (22:47)
[2018-05-16] MEDS: ACETAMINOPHEN TAB 325 MG TAB PO PRN (06:02)
[2018-05-16] MEDS: ALPRAZolam 0.25 MG TAB PO PRN (06:03)
[2018-05-16 07:06] LABS: Glucose,Whole Blood 114 mg/dL (75-99)
[2018-05-16] MEDS: SYMBICORT 160-4.5 MCG INHALER INHALATION SCH ×2 (08:31→20:05)
[2018-05-16] MEDS: IPRATROPIUM-ALBUTEROL 3 ML NEB INHALATION PRN ×3 (08:31→20:05)
[2018-05-16] MEDS: SPIRONOLACTONE 25 MG TAB PO SCH (09:32)
[2018-05-16] MEDS: LACOSAMIDE 50 MG TABLET PO SCH ×2 (09:34→20:54)
[2018-05-16] MEDS: PARoxetine 20 MG TAB PO SCH (09:34)
[2018-05-16] MEDS: ASPIRIN 81 MG PO SCH (09:35)
[2018-05-16] MEDS: FAMOTIDINE 20 MG TAB PO SCH (09:35)
[2018-05-16] MEDS: FLUDROCORTISONE 0.1 MG TAB PO SCH (09:35)
[2018-05-16] MEDS: DONEPEZIL 5 MG TAB PO SCH (09:35)
[2018-05-16] MEDS: PRIMIDONE 50 MG TAB PO SCH ×3 (09:35→22:43)
[2018-05-16] MEDS: predniSONE 20 MG TAB PO SCH (09:35)
[2018-05-16] MEDS: METOPROLOL SUCCINATE (ER) 50 MG TAB.ER.24H PO SCH (09:36)
[2018-05-16] MEDS: INSULIN ASPART 100 UNIT/ML 1 ML 10 ML VIAL SQ SCH ×4 (09:37→20:50)
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
[2018-05-16 12:16] LABS: Glucose,Whole Blood 142 mg/dL (75-99)
[2018-05-16 17:49] LABS: Glucose,Whole Blood 138 mg/dL (75-99)
[2018-05-16] MEDS: MENTHOL-ZINC OXIDE OINT 113 GM TUBE TOPICAL SCH ×3 (20:45→20:54)
[2018-05-16 20:49] LABS: Hemoglobin A1C 5.9 % (4.0-6.0)
[2018-05-16 20:54] LABS: Glucose,Whole Blood 137 mg/dL (75-99)
[2018-05-16] MEDS: ATORVASTATIN 80 MG TAB PO SCH (20:54)
[2018-05-16] MEDS: LATANOPROST 0.005% OPHTH DROPS 2.5 ML BTL LEFT EYE SCH (20:54)
[2018-05-17] MEDS: SYMBICORT 160-4.5 MCG INHALER INHALATION SCH ×2 (07:02→20:37)
[2018-05-17] MEDS: IPRATROPIUM-ALBUTEROL 3 ML NEB INHALATION PRN ×4 (07:02→20:38)
[2018-05-17 07:47] LABS: Glucose,Whole Blood 103 mg/dL (75-99)
[2018-05-17] MEDS: INSULIN ASPART 100 UNIT/ML 1 ML 10 ML VIAL SQ SCH ×4 (08:00→22:12)
[2018-05-17] MEDS: ALPRAZolam 0.25 MG TAB PO PRN ×2 (08:00→15:57)
[2018-05-17] MEDS: ASPIRIN 81 MG PO SCH (08:00)
[2018-05-17] MEDS: PARoxetine 20 MG TAB PO SCH (08:00)
[2018-05-17] MEDS: FLUDROCORTISONE 0.1 MG TAB PO SCH (08:01)
[2018-05-17] MEDS: METOPROLOL SUCCINATE (ER) 50 MG TAB.ER.24H PO SCH (08:01)
[2018-05-17] MEDS: predniSONE 20 MG TAB PO SCH (08:01)
[2018-05-17] MEDS: SPIRONOLACTONE 25 MG TAB PO SCH (08:01)
[2018-05-17] MEDS: DONEPEZIL 5 MG TAB PO SCH (08:01)
[2018-05-17] MEDS: PRIMIDONE 50 MG TAB PO SCH ×3 (08:01→22:14)
[2018-05-17] MEDS: FAMOTIDINE 20 MG TAB PO SCH (08:01)
[2018-05-17] MEDS: LACOSAMIDE 50 MG TABLET PO SCH ×2 (08:01→22:15)
[2018-05-17] MEDS: ACETAMINOPHEN TAB 325 MG TAB PO PRN ×2 (08:01→15:58)
[2018-05-17] MEDS: MENTHOL-ZINC OXIDE OINT 113 GM TUBE TOPICAL SCH ×4 (08:04→22:15)
[2018-05-17 11:20] LABS: Anisocytosis Slight; HCT 24.4 % (34.0-46.0); HGB 7.3 gm/dL (11.4-16.0); Hypochromasia Marked; MCH 24.3 pg (25.0-35.0); MCV 81.2 fL (80.0-100.0); Mean Platelet Volume 6.9; Microcytosis Slight; Platelet Count 432 k/uL (150-450); Poikilocytosis Slight; RDW 17.8 % (11.5-15.5); WBC 13.4 k/uL (3.8-10.6)
--- NOTE | 2018-05-17 11:36 | P.PN ---
Progress Note - Text Progress Note Date: 05/17/18 Patient was medically cleared for discharge yesterday to ECF. Discharge delayed due to unable to contact guardian for placement. She is stable for discharge today to ECF when arrangements are finalized. Silvadene cream added to medication regimen BID. Nurse practitioner note has been reviewed by physician. Signing provider agrees with the documented findings, assessment, and plan of care.
[2018-05-17 12:18] LABS: Glucose,Whole Blood 143 mg/dL (75-99)
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
[2018-05-17 17:35] LABS: Glucose,Whole Blood 136 mg/dL (75-99)
[2018-05-17 20:26] LABS: Glucose,Whole Blood 138 mg/dL (75-99)
[2018-05-17] MEDS: ATORVASTATIN 80 MG TAB PO SCH (22:14)
[2018-05-17] MEDS: LATANOPROST 0.005% OPHTH DROPS 2.5 ML BTL LEFT EYE SCH (22:15)
[2018-05-18] MEDS: ALPRAZolam 0.25 MG TAB PO PRN (01:12)
[2018-05-18 07:11] LABS: Glucose,Whole Blood 93 mg/dL (75-99)
[2018-05-18] MEDS: INSULIN ASPART 100 UNIT/ML 1 ML 10 ML VIAL SQ SCH (08:11)
[2018-05-18] MEDS: SYMBICORT 160-4.5 MCG INHALER INHALATION SCH (08:44)
[2018-05-18] MEDS: IPRATROPIUM-ALBUTEROL 3 ML NEB INHALATION PRN (08:44)
[2018-05-18 09:42] VITALS: BP 116/58; PULSE 82; RESP 20; TEMP 98.2
[2018-05-18] MEDS: LACOSAMIDE 50 MG TABLET PO SCH (09:51)
[2018-05-18] MEDS: FAMOTIDINE 20 MG TAB PO SCH (09:51)
[2018-05-18] MEDS: predniSONE 20 MG TAB PO SCH (09:51)
[2018-05-18] MEDS: PRIMIDONE 50 MG TAB PO SCH (09:51)
[2018-05-18] MEDS: PARoxetine 20 MG TAB PO SCH (09:51)
[2018-05-18] MEDS: ASPIRIN 81 MG PO SCH (09:51)
[2018-05-18] MEDS: METOPROLOL SUCCINATE (ER) 50 MG TAB.ER.24H PO SCH (09:51)
[2018-05-18] MEDS: SPIRONOLACTONE 25 MG TAB PO SCH (09:51)
[2018-05-18] MEDS: MENTHOL-ZINC OXIDE OINT 113 GM TUBE TOPICAL SCH (09:56)
[2018-05-18] MEDS: FLUDROCORTISONE 0.1 MG TAB PO SCH (11:05)
[2018-05-18] MEDS: DONEPEZIL 5 MG TAB PO SCH (11:05)
[2018-05-18 11:40] LABS: Glucose,Whole Blood 119 mg/dL (75-99)
== END 2018-05-18 11:40 | DRG 190 ==
LOC: EC 03:52 → EEVIPCON 05:02 → 4SSUR 05:02
PROVIDERS: ADMIT Family Medicine; ATTEND Family Medicine
DX: J44.1 Chronic obstructive pulmonary disease with (acute) exacerbation (principal); J96.21 Acute and chronic respiratory failure with hypoxia; J96.22 Acute and chronic respiratory failure with hypercapnia; I50.22 Chronic systolic (congestive) heart failure; R47.01 Aphasia; E78.5 Hyperlipidemia, unspecified; F17.200 Nicotine dependence, unspecified, uncomplicated; F32.9 Major depressive disorder, single episode, unspecified; F41.1 Generalized anxiety disorder; I11.0 Hypertensive heart disease with heart failure; I25.10 Atherosclerotic heart disease of native coronary artery without angina pectoris; I25.2 Old myocardial infarction; I27.20 Pulmonary hypertension, unspecified; J84.10 Pulmonary fibrosis, unspecified; K21.9 Gastro-esophageal reflux disease without esophagitis; S06.6X9S Traumatic subarachnoid hemorrhage with loss of consciousness of unspecified duration, sequela; Y95 Nosocomial condition; Z79.02 Long term (current) use of antithrombotics/antiplatelets; Z79.51 Long term (current) use of inhaled steroids; Z79.82 Long term (current) use of aspirin; Z79.899 Other long term (current) drug therapy; Z82.49 Family history of ischemic heart disease and other diseases of the circulatory system; Z83.3 Family history of diabetes mellitus; Z85.3 Personal history of malignant neoplasm of breast; Z87.820 Personal history of traumatic brain injury; Z91.19 Patient's noncompliance with other medical treatment and regimen; Z95.1 Presence of aortocoronary bypass graft; Z99.81 Dependence on supplemental oxygen; Z88.1 Allergy status to other antibiotic agents; Z88.8 Allergy status to other drugs, medicaments and biological substances; I25.5 Ischemic cardiomyopathy
CPT/HCPCS: 36415; 71045; 73502; 74018; 76856; 80048; 80053; 81001; 82272; 83036; 83605; 85025; 85027; 85610; 85730; 87040; 93005; 94640; 94660; 94760; 96365; 96375; 99285

== ENCOUNTER 2018-05-19 16:26 | Inpatient (IN) | payer OTHER ==
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
[2018-05-19 17:28] LABS: ABG Base Excess 7.9 mmol/L; ABG HCO3 32 mmol/L (21-25); ABG Oxygen Saturation 92.3 % (94-97); ABG PCO2 49 mmHg (35-45); ABG PH 7.43 (7.35-7.45); ABG PO2 62 mmHg (83-108); ABG TCO2 34 mmol/L (19-24)
[2018-05-19] MEDS: SODIUM CHLORIDE 0.9% 1,000 ML IV SCH (18:50)
[2018-05-19] MEDS: methylPREDNISolone SOD SUCCI 125 MG/2 ML VIAL IV SCH ×2 (18:50→23:02)
[2018-05-19] MEDS: IPRATROPIUM-ALBUTEROL 3 ML NEB INHALATION SCH (20:01)
[2018-05-20] MEDS: methylPREDNISolone SOD SUCCI 125 MG/2 ML VIAL IV SCH ×4 (06:10→23:28)
[2018-05-20] MEDS: SODIUM CHLORIDE 0.9% 1,000 ML IV SCH ×2 (06:10→12:40)
[2018-05-20] MEDS: IPRATROPIUM-ALBUTEROL 3 ML NEB INHALATION SCH ×4 (07:31→20:06)
[2018-05-20 07:48] LABS: Anion Gap 7 mmol/L; Blood Urea Nitrogen 23 mg/dL (7-17); Calcium 8.9 mg/dL (8.4-10.2); Carbon Dioxide 29 mmol/L (22-30); Chloride 103 mmol/L (98-107); Glucose 101 mg/dL (74-99); Magnesium 1.7 mg/dL (1.6-2.3); Potassium 4.5 mmol/L (3.5-5.1); Sodium 139 mmol/L (137-145)
[2018-05-20 07:54] LABS: Anisocytosis Slight; Basophils % (A) 0 %; Eosinophils % (A) 0 %; HCT 30.1 % (34.0-46.0); HGB 8.6 gm/dL (11.4-16.0); Hypochromasia Marked; Lymphocytes % (A) 8 %; MCH 23.2 pg (25.0-35.0); MCHC 28.5 g/dL (31.0-37.0); MCV 81.2 fL (80.0-100.0); Mean Platelet Volume 7.3; Microcytosis Slight; Monocytes # (A) 0.7 k/uL (0-1.0); Monocytes % (A) 6 %; Neutrophils % (A) 85 %; Platelet Count 580 k/uL (150-450); Poikilocytosis Slight; WBC 11.9 k/uL (3.8-10.6)
[2018-05-20] MEDS: ASPIRIN 81 MG PO SCH (08:55)
[2018-05-20] MEDS: SPIRONOLACTONE 25 MG TAB PO SCH (08:56)
[2018-05-20] MEDS: PARoxetine 20 MG TAB PO SCH (08:56)
[2018-05-20] MEDS: METOPROLOL SUCCINATE (ER) 50 MG TAB.ER.24H PO SCH (08:56)
[2018-05-20] MEDS: PRIMIDONE 50 MG TAB PO SCH ×3 (08:56→20:35)
[2018-05-20] MEDS: FAMOTIDINE 20 MG TAB PO SCH (08:56)
[2018-05-20] MEDS: FLUDROCORTISONE 0.1 MG TAB PO SCH (08:56)
[2018-05-20] MEDS: LACOSAMIDE 50 MG TABLET PO SCH ×2 (08:56→20:35)
[2018-05-20] MEDS: MENTHOL-ZINC OXIDE OINT 113 GM TUBE TOPICAL SCH ×4 (08:57→23:34)
[2018-05-20] MEDS: ENOXAPARIN 40 MG/0.4 ML SYRINGE SQ SCH (08:57)
[2018-05-20] MEDS: DONEPEZIL 5 MG TAB PO SCH (08:57)
[2018-05-20 09:07] LABS: Glucose,Whole Blood 200 mg/dL (75-99)
[2018-05-20] MEDS: ALBUTEROL NEBULIZED 2.5 MG/3 ML INHALATION SCH ×3 (11:08→20:08)
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
[2018-05-20 12:02] LABS: Glucose,Whole Blood 197 mg/dL (75-99)
[2018-05-20] MEDS: INSULIN ASPART 100 UNIT/ML 1 ML 10 ML VIAL SQ SCH ×3 (12:39→21:49)
[2018-05-20] MEDS: CYANOCOBALAMIN 500 MCG TAB PO SCH (12:39)
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
[2018-05-20 14:08] VITALS: BMI 17.5
[2018-05-20 14:27] LABS: Hemoglobin A1C 6.1 % (4.0-6.0)
--- NOTE | 2018-05-20 14:35 | XR ---
EXAMINATION TYPE: XR chest 1V DATE OF EXAM: 05/20/2018 HISTORY: COPD. REFERENCE: Previous study dated 05/11/2018. FINDINGS: There has been a previous midline sternotomy. The heart is mildly enlarged. There continues to be some increased opacity at the right lung base. This has improved from previous. The left lung is clear. Pleural spaces are clear. IMPRESSION: 1. COPD. 2. CARDIOMEGALY. 3. IMPROVING RIGHT BASILAR AIRSPACE DISEASE. THIS SHOULD BE FOLLOWED RESOLUTION.
[2018-05-20 16:41] LABS: Glucose,Whole Blood 164 mg/dL (75-99)
[2018-05-20] MEDS: ATORVASTATIN 80 MG TAB PO SCH (20:35)
[2018-05-20 21:47] LABS: Glucose,Whole Blood 265 mg/dL (75-99)
[2018-05-20] MEDS: ALPRAZolam 0.25 MG TAB PO PRN (21:49)
[2018-05-21 06:08] LABS: Glucose,Whole Blood 164 mg/dL (75-99)
[2018-05-21] MEDS: methylPREDNISolone SOD SUCCI 125 MG/2 ML VIAL IV SCH ×4 (06:42→23:22)
[2018-05-21] MEDS: INSULIN ASPART 100 UNIT/ML 1 ML 10 ML VIAL SQ SCH ×4 (06:42→21:25)
[2018-05-21] MEDS: SODIUM CHLORIDE 0.9% 1,000 ML IV SCH ×3 (06:43→17:35)
[2018-05-21] MEDS: ALBUTEROL NEBULIZED 2.5 MG/3 ML INHALATION SCH ×5 (08:12→20:15)
[2018-05-21] MEDS: IPRATROPIUM-ALBUTEROL 3 ML NEB INHALATION SCH ×5 (08:13→20:15)
[2018-05-21] MEDS: FLUDROCORTISONE 0.1 MG TAB PO SCH (08:45)
[2018-05-21] MEDS: DONEPEZIL 5 MG TAB PO SCH (08:45)
[2018-05-21] MEDS: SPIRONOLACTONE 25 MG TAB PO SCH (08:45)
[2018-05-21] MEDS: LACOSAMIDE 50 MG TABLET PO SCH ×2 (08:45→21:22)
[2018-05-21] MEDS: ASPIRIN 81 MG PO SCH (08:46)
[2018-05-21] MEDS: METOPROLOL SUCCINATE (ER) 50 MG TAB.ER.24H PO SCH (08:46)
[2018-05-21] MEDS: FAMOTIDINE 20 MG TAB PO SCH (08:46)
[2018-05-21] MEDS: PRIMIDONE 50 MG TAB PO SCH ×3 (08:46→21:22)
[2018-05-21] MEDS: ALPRAZolam 0.25 MG TAB PO PRN ×2 (08:46→21:26)
[2018-05-21] MEDS: PARoxetine 20 MG TAB PO SCH (08:46)
[2018-05-21] MEDS: CYANOCOBALAMIN 500 MCG TAB PO SCH (08:47)
[2018-05-21] MEDS: ENOXAPARIN 40 MG/0.4 ML SYRINGE SQ SCH (08:47)
[2018-05-21] MEDS: MENTHOL-ZINC OXIDE OINT 113 GM TUBE TOPICAL SCH ×4 (08:53→21:21)
[2018-05-21 11:46] LABS: Glucose,Whole Blood 225 mg/dL (75-99)
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
--- NOTE | 2018-05-21 14:22 | P.PN ---
Subjective Progress Note Date: 05/21/18 62-year-old female patient with advanced COPD who is coming again for worsening shortness of breath immediately after her discharge. The patient advanced COPD and she has end-stage lung disease. During her last hospitalization, she was BiPAP dependent and she gradually improved and she was discharged to medical [place] of syncope airway she did not last for more than 24 hours and she got short of breath again and she had to be brought back in to the hospital. Her blood gases at time of arrival showed a pH of 7.43 with a pCO2 of 49 and pO2 of 62 and this was on FiO2 of 30%. Currently she is off the BiPAP. She is currently on oxygen at 6 L per minute nasal cannula with a pulse ox of 89%. A follow-up chest x-ray will be ordered for today. She has a very weak cough. Unable to bring up much sputum. No altered mentation. She has expressive aphasia following her most recent CVA. No fever. No chills. No reported aspiration and apparently she eats and swallows very good.Patient has a expressive aphasia related to her history of subarachnoid hemorrhage. Other history includes coronary artery disease with some previous bypass grafting, breast cancer with lumpectomy and radiation, previous history of myocardial infarction, hypertension, hyperlipidemia. On today's evaluation of 05/21/2018, the patient has no specific complaints at she is doing well. She is being treated for her acute COPD exacerbation. No fever no chills. No chest pain. No cough or sputum production. No hemoptysis or pleurisy. She is on 4 L of oxygen nasal cannula and a pulse ox is around 99% . Hemoglobin is stable at 8.6. The discomfort at 11.9. No other significant events over the past 24 hours pages monitor the treatment. Her prognosis is obviously poor based on her advanced lung disease. Objective - Vital Signs Vital signs: Vital Signs Temp 97.3 F L 05/21/18 12:00 Pulse 77 05/21/18 12:00 Resp 18 05/21/18 12:00 BP 149/72 05/21/18 12:00 Pulse Ox 99 05/21/18 12:00 Intake & Output 05/20/18 05/21/18 05/21/18 18:59 06:59 18:59 Intake Total 1400 560 Balance 1400 560 Weight 45 kg 45.5 kg Intake: IV 200 Sodium Chloride 0.9% 1, 200 000 ml @ 100 mls/hr IV . Q10H AGUILA Rx#:[id number] Intake, IV Titration 800 Amount Sodium Chloride 0.9% 1, 800 000 ml @ 100 mls/hr IV . Q10H AGUILA Rx#:[id number] Oral 600 360 Other: Voiding Method Diaper Diaper Incontinent Incontinent # Voids 1 1 0 - Exam Thin and frail, and mild degree of respiratory distress, able to speak some short sentences. She has a very weak cough.. Is cachectic, emaciated. Overall ability to communicate is poor secondary to expressive aphasia. Head exam was generally normal. There was no scleral icterus or corneal arcus. Mucous membranes were moist.Neck was supple and without jugular venous distension, thyromegaly, or carotid bruits. Carotids were easily palpable bilaterally. There was no adenopathy. Lung sounds are diminished and there is prolongation of the expiratory phase of breathing and scattered expiratory wheezes throughout the lung hastings bilaterally.Cardiac exam revealed the PMI to be normally situated and sized. The rhythm was regular and no extrasystoles were noted during several minutes of auscultation. The first and second heart sounds were normal and physiologic splitting of the second heart sound was noted. There were no murmurs, rubs, clicks, or gallops.Abdominal exam revealed normal bowel sounds. The abdomen was soft, non-tender, and without masses, organomegaly, or appreciable enlargement of the abdominal aorta.Examination of the extremities revealed easily palpable radial, femoral and pedal pulses. There was no cyanosis, clubbing or edema. Neurologically, the patient has expressive aphasia. This is related to most recent CVA. No facial asymmetry. Swallow mechanism is adequate. - Labs CBC & Chem 7: 05/20/18 06:22 05/20/18 06:22 Labs: Abnormal Lab Results - Last 24 Hours (Table) 05/20/18 05/20/18 05/20/18 Range/Units 06:22 16:36 21:42 POC Glucose (mg/dL) 164 H 265 H (75-99) mg/dL Hemoglobin A1c 6.1 H (4.0-6.0) % 05/21/18 05/21/18 Range/Units 06:06 11:44 POC Glucose (mg/dL) 164 H 225 H (75-99) mg/dL Hemoglobin A1c (4.0-6.0) % Assessment and Plan Plan: Assessment 1 chronic shortness of breath with acute worsening related to complications of COPD. The patient advanced end-stage COPD and she has had multiple has position for COPD exacerbation and recurrent shortness of breath. She was recently discharged from the hospital after being treated for the same. 2 CHF with impaired LV dysfunction secondary pulmonary hypertension, with an ejection fraction of 35-40% with secondary pulmonary hypertension him a 3 coronary artery disease with previous PCI/coronary intervention and stenting and a previous coronary artery bypass surgery 4 peripheral vascular disease 5 hypertension 6 Breast cancer with previous lumpectomy followed by radiation therapy 7 chronic hypoxic respiratory failure maintained on oxygen , in addition to a mild component of chronic hypercapnic respiratory failure which is compensated based on the most recent blood gas. 8 osteoporosis 9 hyperlipidemia 10 history of smoking 11 acid reflux 12 celiac disease 13 subarachnoid hemorrhage Combigan by expressive aphasia 14 recent hospitalization for VRE bacteremia, treated Plan The patient is slightly improved compared to yesterday. We'll continue same management. Continued IV antibiotics and IV steroids and bronchodilators. BiPAP on and off during the day and at nighttime regarding advanced end-stage COPD. prognosis poor as mentioned earlier in my dictation. This will likely become a recurrent event with recurrent hospitalizations and COPD exacerbation and she may consider even hospice care
[2018-05-21 16:40] LABS: Glucose,Whole Blood 167 mg/dL (75-99)
[2018-05-21 20:32] LABS: Glucose,Whole Blood 186 mg/dL (75-99)
[2018-05-21] MEDS: ATORVASTATIN 80 MG TAB PO SCH (21:22)
[2018-05-22 06:10] LABS: Glucose,Whole Blood 149 mg/dL (75-99)
[2018-05-22] MEDS: methylPREDNISolone SOD SUCCI 125 MG/2 ML VIAL IV SCH (06:18)
[2018-05-22] MEDS: SODIUM CHLORIDE 0.9% 1,000 ML IV SCH ×2 (06:18→17:04)
[2018-05-22] MEDS: INSULIN ASPART 100 UNIT/ML 1 ML 10 ML VIAL SQ SCH ×3 (06:23→17:04)
[2018-05-22] MEDS: IPRATROPIUM-ALBUTEROL 3 ML NEB INHALATION SCH ×3 (08:03→15:44)
[2018-05-22] MEDS: PRIMIDONE 50 MG TAB PO SCH ×2 (09:31→17:04)
[2018-05-22] MEDS: LACOSAMIDE 50 MG TABLET PO SCH (09:31)
[2018-05-22] MEDS: ASPIRIN 81 MG PO SCH (09:31)
[2018-05-22] MEDS: METOPROLOL SUCCINATE (ER) 50 MG TAB.ER.24H PO SCH (09:31)
[2018-05-22] MEDS: FAMOTIDINE 20 MG TAB PO SCH (09:31)
[2018-05-22] MEDS: PARoxetine 20 MG TAB PO SCH (09:32)
[2018-05-22] MEDS: DONEPEZIL 5 MG TAB PO SCH (09:32)
[2018-05-22] MEDS: SPIRONOLACTONE 25 MG TAB PO SCH (09:32)
[2018-05-22] MEDS: ALBUTEROL NEBULIZED 2.5 MG/3 ML INHALATION SCH ×3 (09:33→15:36)
[2018-05-22] MEDS: CYANOCOBALAMIN 500 MCG TAB PO SCH (09:33)
[2018-05-22] MEDS: ENOXAPARIN 40 MG/0.4 ML SYRINGE SQ SCH (09:33)
[2018-05-22] MEDS: FLUDROCORTISONE 0.1 MG TAB PO SCH (09:34)
[2018-05-22] MEDS: MENTHOL-ZINC OXIDE OINT 113 GM TUBE TOPICAL SCH ×3 (09:34→17:04)
[2018-05-22 11:51] VITALS: RESP 18
[2018-05-22 12:14] LABS: Glucose,Whole Blood 149 mg/dL (75-99)
[2018-05-22 13:17] VITALS: BP 152/70; TEMP 98.6
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
[2018-05-22 15:51] VITALS: PULSE 76
[2018-05-22] MEDS ORDERED: methylPREDNISolone SOD SUCCI 40 MG/ML 1 ML VIAL IVP SCH (16:00)
[2018-05-22 16:17] LABS: Glucose,Whole Blood 155 mg/dL (75-99)
== END 2018-05-22 17:29 | DRG 190 ==
LOC: EC 16:26 → 3SCARD 16:43
PROVIDERS: ADMIT Family Medicine; ATTEND Family Medicine
PROC: 5A09357 Assistance with Respiratory Ventilation, Less than 24 Consecutive Hours, Continuous Positive Airway Pressure (ICD-10-PCS; principal; 2018-05-19)
DX: J44.1 Chronic obstructive pulmonary disease with (acute) exacerbation (principal); J96.21 Acute and chronic respiratory failure with hypoxia; J96.22 Acute and chronic respiratory failure with hypercapnia; I50.22 Chronic systolic (congestive) heart failure; R47.01 Aphasia; I11.0 Hypertensive heart disease with heart failure; I27.29 Other secondary pulmonary hypertension; R13.10 Dysphagia, unspecified; E78.5 Hyperlipidemia, unspecified; F32.9 Major depressive disorder, single episode, unspecified; F41.1 Generalized anxiety disorder; I25.10 Atherosclerotic heart disease of native coronary artery without angina pectoris; I25.2 Old myocardial infarction; I73.9 Peripheral vascular disease, unspecified; J98.4 Other disorders of lung; K21.9 Gastro-esophageal reflux disease without esophagitis; K90.0 Celiac disease; F17.210 Nicotine dependence, cigarettes, uncomplicated; M81.0 Age-related osteoporosis without current pathological fracture; G89.29 Other chronic pain; M25.531 Pain in right wrist; I25.5 Ischemic cardiomyopathy; R32 Unspecified urinary incontinence; H40.9 Unspecified glaucoma; Z87.820 Personal history of traumatic brain injury; Z79.52 Long term (current) use of systemic steroids; Z79.82 Long term (current) use of aspirin; Z79.899 Other long term (current) drug therapy; Z88.1 Allergy status to other antibiotic agents; Z88.8 Allergy status to other drugs, medicaments and biological substances; Z99.81 Dependence on supplemental oxygen; Z95.5 Presence of coronary angioplasty implant and graft; Z95.1 Presence of aortocoronary bypass graft; Z93.1 Gastrostomy status; Z91.19 Patient's noncompliance with other medical treatment and regimen; Z85.3 Personal history of malignant neoplasm of breast; Z87.01 Personal history of pneumonia (recurrent); Z87.11 Personal history of peptic ulcer disease; Z92.3 Personal history of irradiation; Z82.49 Family history of ischemic heart disease and other diseases of the circulatory system; Z83.3 Family history of diabetes mellitus
CPT/HCPCS: 36600; 71045; 80048; 82805; 83036; 83735; 85025; 94640; 94660; 94760; 96374; 99291

== ENCOUNTER 2018-05-27 17:51 | Inpatient (IN) | payer OTHER ==
[2018-05-27] MEDS ORDERED: SODIUM CHLORIDE 0.9% 500 ML 500 ML IV STA (18:24)
[2018-05-27] MEDS ORDERED: methylPREDNISolone SOD SUCCI 125 MG/2 ML VIAL IV STA (18:29)
[2018-05-27] MEDS ORDERED: SODIUM CHLORIDE 0.9% 1,000 ML IV ONE (18:29)
[2018-05-27] MEDS ORDERED: IPRATROPIUM 0.5 MG/2.5 ML NEBU INHALATION STA (18:30)
[2018-05-27] MEDS ORDERED: ALBUTEROL NEBULIZED 2.5 MG/3 ML INHALATION STA (18:30)
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
[2018-05-27 19:20] LABS: Anisocytosis Slight; Basophils % (A) 0 %; Eosinophils # (A) 0.1 k/uL (0-0.7); Eosinophils % (A) 1 %; HCT 26.8 % (34.0-46.0); Hypochromasia Marked; Lymphocytes # (A) 0.9 k/uL (1.0-4.8); Lymphocytes % (A) 4 %; MCH 22.5 pg (25.0-35.0); MCHC 29.9 g/dL (31.0-37.0); Microcytosis Moderate; Monocytes # (A) 1.4 k/uL (0-1.0); Monocytes % (A) 6 %; Neutrophils % (A) 88 %; Platelet Count 515 k/uL (150-450); Poikilocytosis Moderate; RBC 3.56 m/uL (3.80-5.40); RDW 18.5 % (11.5-15.5); WBC 21.6 k/uL (3.8-10.6)
[2018-05-27 19:23] LABS: ABG HCO3 28 mmol/L (21-25); ABG PCO2 36 mmHg (35-45); ABG PO2 62 mmHg (83-108); ABG TCO2 29 mmol/L (19-24)
[2018-05-27 19:27] LABS: MCV 75.4 fL (80.0-100.0)
[2018-05-27 19:30] LABS: ALT 41 U/L (9-52); AST 24 U/L (14-36); Albumin 3.4 g/dL (3.5-5.0); Alkaline Phosphatase 67 U/L (38-126); Anion Gap 9 mmol/L; Blood Urea Nitrogen 20 mg/dL (7-17); Calcium 8.7 mg/dL (8.4-10.2); Carbon Dioxide 27 mmol/L (22-30); Chloride 101 mmol/L (98-107); Glucose 112 mg/dL (74-99); Potassium 4.8 mmol/L (3.5-5.1); Sodium 137 mmol/L (137-145); Total Bilirubin 0.5 mg/dL (0.2-1.3)
[2018-05-27 19:33] LABS: ABG Oxygen Saturation 93.7 % (94-97)
[2018-05-27 19:37] LABS: Prothrombin Time 10.6 sec (9.0-12.0)
[2018-05-27 19:50] LABS: D-Dimer 0.92 mg/L FEU (<0.60)
[2018-05-27 19:54] LABS: Troponin I 0.033 ng/mL (0.000-0.034)
--- NOTE | 2018-05-27 20:25 | XR ---
EXAMINATION TYPE: XR chest 2V DATE OF EXAM: 05/27/2018 COMPARISON: 05/20/2018 HISTORY: Short of breath TECHNIQUE: Frontal and lateral views of the chest are obtained. FINDINGS: There is blunting of costophrenic angles. There is coarsening of the lung markings. There are sternal wires. There are chest leads. The bony thorax appears intact. IMPRESSION: Small bilateral pleural effusions. Pulmonary interstitial fibrosis. No gross heart failu re. No change compared to last exam.
--- NOTE | 2018-05-27 21:10 | CT ---
EXAMINATION TYPE: CT chest angio for PE DATE OF EXAM: 05/27/2018 COMPARISON: 04/16/2018 HISTORY: SOB hx- C-sect., CABG, Cardiac Stent, Immanuel. Iliac stents CT DLP: 248.1 mGycm Automated exposure control for dose reduction was used. CONTRAST: CT Chest for pulmonary embolism performed with with IV Contrast, patient injected with 100 mL of Isov ue 370. FINDINGS: There are bilateral pleural effusions. Thoracic aorta is atheromatous. Ascending aorta measures 3.9 c m. There is no evidence of dissection. There is no mediastinal adenopathy. There are no hilar masses. There is normal contrast opacification of the pulmonary arteries. There are large central pulmonary arteries. There is patchy atelectasis at the lung bases. There are emphysematous changes in the upper lung hastings. Bony thorax is intact. There is no compression fracture. IMPRESSION: No evidence of pulmonary embolism. There is probably pulmonary hypertension with large central pulmon richard arteries. COPD. There is increased pleural fluid and atelectasis at the lung bases compared to ol d exam.
[2018-05-27] MEDS ORDERED: FUROSEMIDE 10 MG/ML 4 ML VIAL IV STA (21:24)
[2018-05-27 23:25] LABS: Appearance,Urine Clear (Clear); Bilirubin,Urine Negative (Negative); Blood,Urine Small (Negative); Color,Urine Colorless; Glucose,Urine (UA) Negative (Negative); Ketones,Urine Negative (Negative); Leukocyte Esterase,Urine Negative (Negative); Nitrite,Urine Negative (Negative); Protein,Urine Negative (Negative); RBC,Urine 13 /hpf (0-5); Specific Gravity,Urine 1.008 (1.001-1.035); Squamous Epithelial Cell,Urine <1 /hpf (0-4); Urobilinogen,Urine <2.0 mg/dL (<2.0); WBC,Urine 1 /hpf (0-5)
[2018-05-27] MEDS ORDERED: NALOXONE 0.4 MG/ML 1 ML VIAL IV PRN (23:25)
[2018-05-28] MEDS ORDERED: IPRATROPIUM-ALBUTEROL 3 ML NEB INHALATION PRN (00:22)
[2018-05-28 02:05] LABS: Glucose,Whole Blood 156 mg/dL (75-99)
[2018-05-28] MEDS: FUROSEMIDE 10 MG/ML 4 ML VIAL IV SCH ×3 (02:42→23:27)
[2018-05-28] MEDS: IPRATROPIUM-ALBUTEROL 3 ML NEB INHALATION SCH ×6 (03:34→23:09)
[2018-05-28 05:00] LABS: Anisocytosis Slight; Basophils % (A) 0 %; Eosinophils % (A) 0 %; HCT 28.4 % (34.0-46.0); Hypochromasia Marked; Lymphocytes # (A) 0.7 k/uL (1.0-4.8); Lymphocytes % (A) 4 %; MCH 21.9 pg (25.0-35.0); Microcytosis Slight; Monocytes # (A) 0.5 k/uL (0-1.0); Monocytes % (A) 3 %; Neutrophils % (A) 93 %; Platelet Count 496 k/uL (150-450); Poikilocytosis Moderate; RBC 3.64 m/uL (3.80-5.40); RDW 18.2 % (11.5-15.5); WBC 18.3 k/uL (3.8-10.6)
[2018-05-28 05:11] LABS: ALT 39 U/L (9-52); AST 38 U/L (14-36); Albumin 3.3 g/dL (3.5-5.0); Alkaline Phosphatase 67 U/L (38-126); Anion Gap 10 mmol/L; Blood Urea Nitrogen 19 mg/dL (7-17); Calcium 8.6 mg/dL (8.4-10.2); Carbon Dioxide 26 mmol/L (22-30); Chloride 100 mmol/L (98-107); Glucose 130 mg/dL (74-99); Potassium 4.1 mmol/L (3.5-5.1); Sodium 136 mmol/L (137-145); Total Bilirubin 0.6 mg/dL (0.2-1.3); Total Protein 5.9 g/dL (6.3-8.2)
--- NOTE | 2018-05-28 07:21 | XR ---
EXAMINATION TYPE: XR chest 2V DATE OF EXAM: 05/28/2018 HISTORY: SOB. REFERENCE: Previous study dated 05/27/2018. FINDINGS: There has been a midline sternotomy. The lungs are overinflated. The heart is enlarged. There is vascular congestion without berry interst itial change. There is an increased opacity right lung base. There is a right-sided effusion. IMPRESSION: 1. COPD. 2. MILD CARDIOMEGALY. 3. VASCULAR CONGESTION. 4. WORSENING RIGHT BASILAR INFILTRATE. 5. SMALL RIGHT EFFUSION.
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
[2018-05-28] MEDS ORDERED: ALBUTEROL NEBULIZED 2.5 MG/3 ML INHALATION SCH (12:00)
[2018-05-28 12:09] LABS: Glucose,Whole Blood 133 mg/dL (75-99)
[2018-05-28 12:19] LABS: ABG Base Excess 10.3 mmol/L; ABG HCO3 33 mmol/L (21-25); ABG Oxygen Saturation 88.7 % (94-97); ABG PCO2 38 mmHg (35-45); ABG PH 7.55 (7.35-7.45); ABG TCO2 34 mmol/L (19-24)
[2018-05-28] MEDS: methylPREDNISolone SOD SUCCI 40 MG/ML 1 ML VIAL IV SCH ×3 (12:20→23:27)
[2018-05-28] MEDS: INSULIN ASPART 100 UNIT/ML 1 ML 10 ML VIAL SQ SCH ×3 (12:20→21:00)
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
--- NOTE | 2018-05-28 14:08 | CONS ---
CONSULTATION Mrs. Kasandra Benítez is a 62-year-old lady who has been admitted to the hospital with symptoms of increasing shortness of breath, cough, lack of energy and had some confusion. She came in brought by the nursing staff at [facility]. After arrival she continued to have shortness of breath and therefore she has been placed on some BiPAP and she seems to be feeling a little better. This lady has a history of known CAD, prior PCI, hypertension, hyperlipidemia, and previous hospitalizations with hypercapnic respiratory failure. She also has history of congestive heart failure as well. At the time of my evaluation, she seems to be somewhat more comfortable. She has extensive history of CAD with a prior PCI of RCA in 2014 and also she apparently had aortocoronary bypass surgery with some mitral valve repair in the past. The mitral and tricuspid repair and 4 vessel bypass was performed at [facility]. The details are unavailable and this is based on the information in the chart. Patient is unable to give me any meaningful history. However, she had an echocardiogram that was performed here in the hospital on April 27, which revealed which revealed a fairly decent systolic function with ejection fraction in the 50-55 percent range with mild gradient across mitral valve but no regurgitation. There was mitral annular calcification with repair of mitral valve and mild pulmonary hypertension and tricuspid repair was also evident on that study. Patient's presentation mostly appears to be a hypercapnic respiratory failure. She had a chest x-ray also performed, which reveals possibility of some right-sided infiltrate with effusion. The patient is here with a combination of pneumonia, respiratory failure, bronchitis with possible small right pleural effusion. Cardiac-prabhakar, she seems to be fairly stable. Denies any chest discomfort at the time of my evaluation. She complains of feeling weak and tired. Her proBNP was elevated up to 25,000. Two sets of troponins are normal. PAST MEDICAL HISTORY: 1. Remarkable for aortocoronary bypass surgery with mitral and tricuspid valve repair. 2. Previous history of PCI. 3. History of COPD with CO2 retention on BiPAP. 4. History of hypertension. 5. Hyperlipidemia. MEDICATIONS: At home were in [facility] include prednisone tapering, Aldactone 12.5 mg daily, Mysoline, Toprol-XL 50 mg daily, Florinef 0.1 mg daily, Lipitor 80 mg daily, aspirin 81 mg daily. ALLERGIES: SHE IS ALLERGIC TO QUINOLONES. PHYSICAL EXAMINATION: Blood pressure is 118/70, pulse rate is about 80 per minute regular. HEENT unremarkable. Fundus was not examined by me. NECK: Supple. There is JVD of 1 cm. There is no carotid bruit. Heart exam reveals S1, S2 with a short systolic murmur at the left sternal border and apex. Lungs reveal diminished air entry. Abdomen is soft, nontender. Lower extremities reveal diminished pulses. Central nervous system. Patient is able to move all 4 extremities, but has generalized weakness. EKG revealed a sinus mechanism, leftward axis, isolated PVCs and some septal Q-waves. IMPRESSION: 1. Hypercapnic respiratory failure. 2. Probable pneumonia. 3. History of coronary artery disease with prior bypass surgery and mitral and tricuspid valve repair. 4. Exacerbation of congestive heart failure, systolic and diastolic. RECOMMENDATION: I am recommending that we give her Lasix 40 mg IV push q.12 hours. Check additional troponin levels and I will have the nurse speak to the senior sales operations analyst for antibiotic administration. Prognosis remains guarded. MMODL / IJN: [id number] /
[2018-05-28] MEDS: PRIMIDONE 50 MG TAB PO SCH ×2 (17:01→21:00)
[2018-05-28 17:29] LABS: Glucose,Whole Blood 179 mg/dL (75-99)
[2018-05-28] MEDS: SYMBICORT 160-4.5 MCG INHALER INHALATION SCH (19:43)
[2018-05-28 20:10] LABS: Glucose,Whole Blood 147 mg/dL (75-99)
[2018-05-28] MEDS: ATORVASTATIN 80 MG TAB PO SCH (21:00)
[2018-05-28] MEDS: LACOSAMIDE 50 MG TABLET PO SCH (21:00)
[2018-05-28] MEDS: ALPRAZolam 0.25 MG TAB PO PRN (22:27)
[2018-05-29] MEDS: IPRATROPIUM-ALBUTEROL 3 ML NEB INHALATION SCH ×6 (03:29→23:23)
[2018-05-29 05:58] LABS: Anisocytosis Slight; Basophils % (A) 0 %; Eosinophils % (A) 0 %; HCT 27.8 % (34.0-46.0); HGB 7.8 gm/dL (11.4-16.0); Hypochromasia Marked; Lymphocytes # (A) 0.4 k/uL (1.0-4.8); Lymphocytes % (A) 3 %; MCH 21.8 pg (25.0-35.0); MCHC 28.2 g/dL (31.0-37.0); MCV 77.4 fL (80.0-100.0); Mean Platelet Volume 7.3; Microcytosis Slight; Monocytes # (A) 0.7 k/uL (0-1.0); Monocytes % (A) 4 %; Neutrophils # (A) 15.8 k/uL (1.3-7.7); Neutrophils % (A) 93 %; Platelet Count 492 k/uL (150-450); Poikilocytosis Slight; RBC 3.59 m/uL (3.80-5.40); RDW 18.4 % (11.5-15.5); WBC 17.1 k/uL (3.8-10.6)
[2018-05-29 06:16] LABS: Anion Gap 12 mmol/L; Blood Urea Nitrogen 28 mg/dL (7-17); Calcium 8.4 mg/dL (8.4-10.2); Carbon Dioxide 30 mmol/L (22-30); Chloride 96 mmol/L (98-107); Glucose 166 mg/dL (74-99); Potassium 3.5 mmol/L (3.5-5.1); Sodium 138 mmol/L (137-145)
[2018-05-29] MEDS ORDERED: Potassium Replacement Protocol 1 EACH MISC MISCELLANE PRN (06:45)
[2018-05-29] MEDS: methylPREDNISolone SOD SUCCI 40 MG/ML 1 ML VIAL IV SCH (06:50)
[2018-05-29 07:02] LABS: Glucose,Whole Blood 130 mg/dL (75-99)
[2018-05-29] MEDS: POTASSIUM CHLORIDE ER 20 MEQ TAB.ER PO SCH ×2 (07:30→09:15)
[2018-05-29] MEDS: INSULIN ASPART 100 UNIT/ML 1 ML 10 ML VIAL SQ SCH ×4 (07:31→22:02)
[2018-05-29] MEDS ORDERED: NON-FORMULARY DRUG (Fluticasone/Vilanterol [Breo Ellipta 200-25 Mcg Inh] 1 PUFF) INHALATION SCH (08:00)
[2018-05-29] MEDS: SYMBICORT 160-4.5 MCG INHALER INHALATION SCH ×2 (08:19→20:29)
[2018-05-29] MEDS ORDERED: FLUDROCORTISONE 0.1 MG TAB PO SCH (09:00)
[2018-05-29] MEDS: SPIRONOLACTONE 25 MG TAB PO SCH (09:15)
[2018-05-29] MEDS: CYANOCOBALAMIN 500 MCG TAB PO SCH (09:16)
[2018-05-29] MEDS: FAMOTIDINE 20 MG TAB PO SCH (09:16)
[2018-05-29] MEDS: ASPIRIN 81 MG PO SCH (09:16)
[2018-05-29] MEDS: PARoxetine 20 MG TAB PO SCH (09:16)
[2018-05-29] MEDS: LACOSAMIDE 50 MG TABLET PO SCH ×2 (09:16→22:05)
[2018-05-29] MEDS: FUROSEMIDE 40 MG TAB PO SCH ×2 (09:16→16:21)
[2018-05-29] MEDS: PRIMIDONE 50 MG TAB PO SCH ×3 (09:17→22:05)
[2018-05-29] MEDS: DONEPEZIL 5 MG TAB PO SCH (09:18)
[2018-05-29] MEDS: METOPROLOL SUCCINATE (ER) 50 MG TAB.ER.24H PO SCH (09:18)
--- NOTE | 2018-05-29 10:40 | PN ---
PROGRESS NOTE This is a 62-year-old female well known to our service. She has a history of severe end-stage COPD, chronic hypoxemic respiratory failure and a previous CVA. She has also had a previous bypass grafting in 2016 and previous myocardial infarction with stents in 2014. Her CVA which left with expressive aphasic occurred in November 2017. Looking back, she has had about 18 admissions to the hospital in this last year. She was admitted on May 28. She came in with a COPD exacerbation and decreased pO2 , but in actuality look like her primary problem was that of CHF. She had a post hypercapnic alkalosis. Anyway, she is doing a bit better. She is down to 3 L. She is not receiving any IV fluids. She was given Lasix. Her N-terminal proBNP was nearly 26,000. In addition to the acute on chronic hypoxemic respiratory failure primarily related to CHF, the patient does have a history of underlying COPD, pulmonary hypertension, CAD with previous bypass grafting and PCI, peripheral vascular disease, hypertension, breast cancer with previous lumpectomy and radiation therapy, osteoporosis, hyperlipidemia, history of tobacco use, GERD, celiac disease, subarachnoid hemorrhage with expressive aphasic improved and a previous history of vancomycin resistant enterococci bacteremia. The patient currently looks relatively comfortable. Her chest x-ray is consistent with fluid overload. She is getting Lasix. She will need to be discharged on Lasix. She could certainly be discharged from the unit today. Current vital signs include temperature 98.8, heart rate of 89, respiratory rate 14, blood pressure 105/53 and the saturation between 91% and 93% on 3 L. Appears in no acute distress. No respiratory distress. No audible wheezing. No use of accessory muscles. HEENT examination is grossly unremarkable. Nasal O2 in place. NECK: Supple. Full range of motion. No adenopathy or thyromegaly. Neck veins are flat. Cardiovascular examination reveals distant heart sounds. S1, S2 normal. Heart rate 89. No S3, S4. No distinct murmur noted. Lungs reveal bibasilar crackles. Breath sounds are diminished throughout. A few scattered mild rhonchi. No wheezes. Abdomen is soft. Extremities are intact. No cyanosis, clubbing, or edema. Skin without rash. Other than her expressive aphasia, her neurologic examination is nonfocal. Microbiologic studies are negative. Labs are reviewed. White count 17.1, hemoglobin 7.8, hematocrit 27.8, platelet count 492,000. Sodium 138, potassium 3.5, chloride 96, CO2 of 30, BUN and creatinine 20 and 0.55. Most recent gases show pO2 of 51, pCO2 of 38, pH 7.55; this is on 28%. Current medications are reviewed. She is getting Xanax, aspirin, Lipitor, Symbicort, B12, Aricept, famotidine, Lasix, insulin, DuoNeb, Vimpat, metoprolol, Narcan, Paxil, potassium, primidone, Requip, and Aldactone. ASSESSMENT: 1. Acute hypoxemic and hypercapnic respiratory failure secondary to primarily systolic heart failure, but also a minor component of chronic obstructive pulmonary disease. 2. Systolic congestive heart failure with secondary pulmonary hypertension and an estimated ejection fraction 35%. 3. Coronary artery disease with previous bypass grafting in 2017 and myocardial infarction with stents in 2014. 4. History of peripheral vascular occlusive disease. 5. Benign essential hypertension. 6. Breast cancer with previous lumpectomy/radiation therapy. 7. Osteoporosis. 8. Hyperlipidemia. 9. History of tobacco use. 10.Gastroesophageal reflux disease. 11.Celiac disease. 12.Status post subarachnoid hemorrhage with expressive aphasia. 13.History of vancomycin-resistant enterococci. 14.Multiple admissions to this hospital over the last year of about 18 admissions. PLAN: The patient is doing much better. Chest x-ray was consistent with fluid overload, with a N-terminal proBNP that was 26,000. Medications are adjusted accordingly. She does not need any steroids at this time. She is on appropriate bronchodilators. We will continue to follow. I would recommend discharge to the general medical floor or to selective. Prognosis is guarded. We need to do something about these multiple admissions to the hospital. No additional recommendations are made at this time. We will follow as needed. Critical care time is 33 minutes. MMODL / IJN: [id number] / ANTONIO
[2018-05-29 10:56] LABS: ABG PO2 51 mmHg (83-108)
[2018-05-29 11:48] LABS: Glucose,Whole Blood 132 mg/dL (75-99)
[2018-05-29 13:24] LABS: Hemoglobin A1C 6.3 % (4.0-6.0)
--- NOTE | 2018-05-29 15:41 | XR ---
EXAMINATION TYPE: XR chest 2V DATE OF EXAM: 05/29/2018 COMPARISON: 05/28/2018 HISTORY: 62 year-old female COPD and CHF, shortness of breath TECHNIQUE: AP and lateral views FINDINGS: Patient is rotated toward the right altering the normal cardia mediastinal contours. The heart remain s mildly enlarged. Diffuse vascular prominence. Trace effusion remains on the right, improved from pr ior. Median sternotomy wires with post-CABG clips and annuloplasty ring. There is residual focal patc hy right basilar opacity. IMPRESSION: Improving CHF and pulmonary vascular congestion. Patchy density, possible infiltrate or edema at the right base persists but is also improving. A trace right effusion remains.
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
[2018-05-29 17:18] LABS: Glucose,Whole Blood 173 mg/dL (75-99)
[2018-05-29] MEDS ORDERED: BISACODYL 10 MG SUPP RECTAL STA (19:52)
[2018-05-29 20:57] LABS: Glucose,Whole Blood 117 mg/dL (75-99)
--- NOTE | 2018-05-29 20:58 | PN ---
PROGRESS NOTE Mrs. Benítez has hypercapnic respiratory failure, but she is doing much better. She is status post mitral and tricuspid valve repair and bypass surgery. She is breathing easier. Denies chest pain. S1-S2 heard normally. Short systolic murmur noted. Lungs reveal improved air entry. Abdomen and lower extremity exam unchanged. Plan is to continue current medications and see how she does. MMODL / IJN: [id number] /
[2018-05-29] MEDS: ATORVASTATIN 80 MG TAB PO SCH (22:05)
[2018-05-29] MEDS: ALPRAZolam 0.25 MG TAB PO PRN (22:09)
[2018-05-30] MEDS ORDERED: ACETAMINOPHEN TAB 325 MG TAB PO PRN (00:32)
--- NOTE | 2018-05-30 01:12 | XR ---
EXAMINATION TYPE: XR chest 1V DATE OF EXAM: 05/30/2018 COMPARISON: Yesterday HISTORY: Fever TECHNIQUE: Single frontal view of the chest is obtained. FINDINGS: There is a mild infiltrate in the right lower lobe. There is no heart failure. The other l danitza hastings are clear. There are sternal wires. Costophrenic angles are clear. There are chest leads. IMPRESSION: There is partial clearing of right lower lobe pneumonia compared to exam yesterday. No h eart failure.
--- NOTE | 2018-05-30 01:14 | XR ---
EXAMINATION TYPE: XR abdomen 1V DATE OF EXAM: 05/30/2018 COMPARISON: 05/12/2018 HISTORY: Fever TECHNIQUE: Single view FINDINGS: There is no sign of intestinal obstruction or pneumoperitoneum. There are iliac artery sten ts noted. Fecal pattern is normal. There are chest leads. There is no evidence of a mass. IMPRESSION: Nonacute abdomen. No change.
[2018-05-30 01:23] LABS: Anisocytosis Slight; HCT 31.3 % (34.0-46.0); HGB 8.8 gm/dL (11.4-16.0); Hypochromasia Marked; MCH 21.3 pg (25.0-35.0); Mean Platelet Volume 6.9; Microcytosis Slight; Platelet Count 521 k/uL (150-450); Poikilocytosis Slight; RBC 4.12 m/uL (3.80-5.40); RDW 18.4 % (11.5-15.5); WBC 37.5 k/uL (3.8-10.6)
[2018-05-30] MEDS: AZITHROMYCIN 500 MG in SODIUM CHLORIDE 0.9% 250 ML IVPB SCH (01:36)
[2018-05-30] MEDS: IPRATROPIUM-ALBUTEROL 3 ML NEB INHALATION SCH ×5 (02:59→18:57)
[2018-05-30 03:08] LABS: Band Neutrophils % 12 %; Lymphocytes # (M) 2.63 k/uL (1.0-4.8); Neutrophils % (M) 77 %; Nucleated Red Blood Cells 0 /100 WBC (0-0); Total Cells Counted 100
[2018-05-30 03:09] LABS: Polychromasia Present; Target Cells Present
[2018-05-30 03:10] LABS: Ovalocytes Present
[2018-05-30 05:09] LABS: Anion Gap 11 mmol/L; Blood Urea Nitrogen 28 mg/dL (7-17); Calcium 8.7 mg/dL (8.4-10.2); Carbon Dioxide 29 mmol/L (22-30); Chloride 98 mmol/L (98-107); Glucose 112 mg/dL (74-99); Magnesium 1.5 mg/dL (1.6-2.3); Phosphorus 3.1 mg/dL (2.5-4.5); Potassium 3.6 mmol/L (3.5-5.1); Sodium 138 mmol/L (137-145)
[2018-05-30] MEDS ORDERED: SODIUM CHLORIDE 0.9% 500 ML 500 ML IV ONE (05:30)
[2018-05-30] MEDS: POTASSIUM CHLORIDE 10 MEQ in WATER FOR INJECTION 1 100ML.BAG IVPB SCH ×2 (06:15→11:34)
[2018-05-30] MEDS: MAGNESIUM SULFATE-D5W PMX 1 GM in DEXTROSE/WATER 1 100ML.BAG IVPB SCH ×2 (06:32→11:35)
[2018-05-30 07:02] LABS: Glucose,Whole Blood 143 mg/dL (75-99)
[2018-05-30] MEDS: INSULIN ASPART 100 UNIT/ML 1 ML 10 ML VIAL SQ SCH ×4 (07:08→23:41)
[2018-05-30] MEDS: SYMBICORT 160-4.5 MCG INHALER INHALATION SCH ×2 (07:37→18:57)
[2018-05-30] MEDS: METOPROLOL SUCCINATE (ER) 50 MG TAB.ER.24H PO SCH (08:17)
[2018-05-30] MEDS: DONEPEZIL 5 MG TAB PO SCH (08:23)
[2018-05-30] MEDS: PARoxetine 20 MG TAB PO SCH (08:23)
[2018-05-30] MEDS: FAMOTIDINE 20 MG TAB PO SCH (08:23)
[2018-05-30] MEDS: PRIMIDONE 50 MG TAB PO SCH ×3 (08:24→23:29)
[2018-05-30] MEDS: ASPIRIN 81 MG PO SCH (08:24)
[2018-05-30] MEDS: CYANOCOBALAMIN 500 MCG TAB PO SCH (08:24)
[2018-05-30] MEDS: LACOSAMIDE 50 MG TABLET PO SCH ×2 (08:24→23:29)
--- NOTE | 2018-05-30 10:17 | PN ---
PROGRESS NOTE Mrs Benítez is a lady with mitral and tricuspid valve repair and bypass surgery. Since surgery, she has COPD and non-oxygen dependent. She came into the hospital with a hypoxic respiratory failure. However, she seemed to do a little bit better yesterday, but she became very hypotensive and also hypoxic yesterday. Her white count has gone up. She has been re-cultured. Clinical scenario suggests that we are dealing with some sepsis. The patient has been hydrated. Overall prognosis appears to be poor from a multi-system point of view mainly because of sepsis. Her blood pressure is about 100 systolic pulse rate is about correction please her blood pressure is about 100 systolic pulse rate is about 90. He appears to be sinus mechanism S1-S2 heard normally. Lungs reveal diminished air entry with rales on both bases. Abdomen is soft, lower extremities reveal diminished pulses. Central nervous system grossly no focal deficits but there is generalized weakness. RECOMMENDATIONS: I would recommend that we hydrate her cautiously in view of possible sepsis and hypotension and await the results of blood cultures and further input from Dr. Jiménez. No intervention aggressively from a cardiac standpoint. Patient has severe advanced lung disease as well. MMODL / IJN: [id number] /
--- NOTE | 2018-05-30 10:20 | P.PN ---
Subjective Progress Note Date: 05/30/18 Principal diagnosis: Acute on chronic hypoxic respiratory failure secondary to acute on chronic systolic congestive heart failure, and COPD exacerbation, suspected sepsis This is a 62-year-old female familiar to my service, known to have history of severe end-stage COPD, chronic hypoxic respiratory failure secondary to COPD, patient is maintained on oxygen and nocturnal BiPAP, brought in last night by EMS complaining of increased shortness of breath, and increased somnolence. This was noted by her grandson was visiting her yesterday at the [facility]. She was recently discharged out of [facility] about 5 days ago , and she went to [facility]. According to the patient she was compliant with her bronchodilators, oxygen, BiPAP, but the patient is known to have history of multiple medical problems including hemorrhagic CVA, chronic congestive heart failure, previous brain injury, and she had expressive aphasia for quite some time related to her CVA. Upon presentation to the ER, patient was noted to be dyspneic, and she was having some vague chest discomfort. The patient herself is an extremely poor historian, and most of the information was obtained from her grandson who was standing at bedside. CT of the chest in the ER showed no evidence of pulmonary embolism, prominence of the large central pulmonary arteries, increased pleural effusion bilaterally. ABG showed a pO2 of 51 pCO2 of 38 pH of 7.55. She was noted to have a bit of leukocytosis with WBC count of 18.3 hemoglobin of 8. A relatively normal basic metabolic profile was noted. The patient was placed on oxygen, bronchodilators in the form of DuoNeb, she was given Lasix 40 mg IV push every 12 hours, and she was also placed on methylprednisolone 40 mg IV push every 6 hours. Cardiac meds were resumed including beta blockers, IV fluid was cut down to KVO. 05/30/2018 patient seen in follow-up in the intensive care unit, yesterday in the evening patient became hypotensive, quite tachycardic, and febrile with a temp of 101.5 axillary. Her transfer out of the unit was canceled, and stat chest x-ray, abdominal x-ray, blood cultures, urine cultures and antibiotics were ordered. She became oliguric, patient's Lasix was put on hold, see the IV fluid bolus of 500 mL of normal saline. Not require vasopressor support, Lasix remains on hold this morning, chest x-ray was reviewed by Dr. Jiménez, and shows old infiltrate in the right lower lobe which appears to be clearing compared to previous exams, no signs of heart failure no other acute findings. Abdominal x- ray was reviewed, showed nonacute abdomen, no sign of intestinal obstruction or pneumoperitoneum. This morning patient is seen awake and alert, currently on 5 L per nasal cannula her pulse ox is 98%, running low-grade fevers of 99.2 orally, blood pressures 103/59, non-tachycardic. Today's lab work was reviewed , and there is due to elevation of white blood cell count, up to 37.5, hemoglobin is 8.8, electrolytes were normal limits, BUN is 28 and creatinine 0.57. She denies any worsening dyspnea, lung sounds reveal some diffuse crackles no wheezing or rhonchi. Her abdomen is diffusely tender, particularly in the right upper quadrant area. We'll obtain CT of the abdomen, we will keep the patient nothing by mouth for now, she will remain in the intensive care unit for further monitoring. Will continue current antibiotic coverage, currently she is on azithromycin and Rocephin. Objective - Vital Signs Vital signs: Vital Signs Temp 99.2 F 05/30/18 08:00 Pulse 84 05/30/18 08:00 Resp 23 05/30/18 08:00 BP 103/59 05/30/18 08:00 Pulse Ox 98 05/30/18 08:00 Intake & Output 05/29/18 05/30/18 05/30/18 18:59 06:59 18:59 Intake Total 240 Output Total 1000 500 100 Balance -760 -500 -100 Weight 54.7 kg 47.5 kg Intake: Oral 240 Output: Urine 1000 500 100 Other: Voiding Method Indwelling Catheter Indwelling Catheter # Voids 1 - Exam General appearance: Revealed a 62-year-old female in the ICU as an overflow, in no distress, on few liters nasal cannula. Eye exam: PERRLA, EOMI, no icterus. ENT exam: Moist mucous membranes, normal nasal and oral mucosa, neck is supple, no thyromegaly, no carotid bruits. Respiratory exam: Extremely diminished breath sound bilaterally, some diffuse crackles Cardiovascular Exam: Normal S1 and S2, 2/6 systolic murmur thought the precordium. No rubs. GI/Abdominal exam: Flat, soft, nontender, no megaly, no rebound, no guarding. Positive bowel sounds. Neurological exam: Awake, oriented 1, has some dysphasia.) Psychiatric exam: Normal mood affect, however patient may have poor insight. Skin exam: Good skin turgor, no cyanosis, no rashes. - Labs CBC & Chem 7: 05/30/18 00:52 05/30/18 00:52 Labs: Abnormal Lab Results - Last 24 Hours (Table) 05/28/18 05/28/18 05/29/18 Range/Units 04:19 12:17 11:45 WBC (3.8-10.6) k/uL Hgb (11.4-16.0) gm/dL Hct (34.0-46.0) % MCV (80.0-100.0) fL MCH (25.0-35.0) pg MCHC (31.0-37.0) g/dL RDW (11.5-15.5) % Plt Count (150-450) k/uL Neutrophils # (Manual) (1.3-7.7) k/uL Monocytes # (Manual) (0-1.0) k/uL ABG pO2 51 L* (83-108) mmHg BUN (7-17) mg/dL Glucose (74-99) mg/dL POC Glucose (mg/dL) 132 H (75-99) mg/dL Hemoglobin A1c 6.3 H (4.0-6.0) % Magnesium (1.6-2.3) mg/dL 05/29/18 05/29/18 05/30/18 Range/Units 16:51 20:45 00:52 WBC 37.5 H (3.8-10.6) k/uL Hgb 8.8 L (11.4-16.0) gm/dL Hct 31.3 L (34.0-46.0) % MCV 76.0 L (80.0-100.0) fL MCH 21.3 L (25.0-35.0) pg MCHC 28.0 L (31.0-37.0) g/dL RDW 18.4 H (11.5-15.5) % Plt Count 521 H (150-450) k/uL Neutrophils # (Manual) 33.30 H (1.3-7.7) k/uL Monocytes # (Manual) 1.50 H (0-1.0) k/uL ABG pO2 (83-108) mmHg BUN (7-17) mg/dL Glucose (74-99) mg/dL POC Glucose (mg/dL) 173 H 117 H (75-99) mg/dL Hemoglobin A1c (4.0-6.0) % Magnesium (1.6-2.3) mg/dL 05/30/18 05/30/18 Range/Units 00:52 06:50 WBC (3.8-10.6) k/uL Hgb (11.4-16.0) gm/dL Hct (34.0-46.0) % MCV (80.0-100.0) fL MCH (25.0-35.0) pg MCHC (31.0-37.0) g/dL RDW (11.5-15.5) % Plt Count (150-450) k/uL Neutrophils # (Manual) (1.3-7.7) k/uL Monocytes # (Manual) (0-1.0) k/uL ABG pO2 (83-108) mmHg BUN 28 H (7-17) mg/dL Glucose 112 H (74-99) mg/dL POC Glucose (mg/dL) 143 H (75-99) mg/dL Hemoglobin A1c (4.0-6.0) % Magnesium 1.5 L (1.6-2.3) mg/dL Microbiology - Last 24 Hours (Table) 05/27/18 19:00 Blood Culture - Preliminary Blood No Growth after 48 hours Assessment and Plan Plan: 1. Acute septic shock, and the source of sepsis is under investigation. Patient became hypotensive, tachycardic and febrile and due to elevation of white blood cell count on 05/30/2018. Cultures are collected and are pending at this time patient is covered with empiric antibiotics. 2. Acute abdominal pain, abdominal x-ray was negative for pneumoperitoneum or obstructive pattern, we'll obtain CT of the abdomen 3 acute on chronic hypoxic respiratory failure secondary to acute on chronic systolic congestive heart failure, and acute on chronic COPD exacerbation. 4 CHF with impaired LV dysfunction secondary pulmonary hypertension, with an ejection fraction of 35-40% with secondary pulmonary hypertension 5 coronary artery disease with previous PCI/coronary intervention and stenting and a previous coronary artery bypass surgery 6 peripheral vascular disease, involving mostly lower extremities. 7 hypertension, benign essential. 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 Plan: Lasix will remain on hold for now, 0.9 normal saline at a rate of 50 ML per hour for gentle hydration. Patient is having diffuse abdominal pain, abdominal x-ray was negative, will obtain CT of the abdomen with contrast. Continue with current antibiotic coverage, cultures are pending. Today's chest x-ray was reviewed by Dr. Dr. Jiménez, showed no acute findings and no changes of congestive heart failure. Patient will remain nothing by mouth, may need surgical evaluation. Patient did respond to IV fluid bolus, hemodynamically stable, did not require any vasopressor support, she is nonoliguric. She will remain in the intensive care unit for further monitoring. Overall long-term prognosis is quite poor, code status needs to be addressed. I performed a history & physical examination of the patient and discussed their management with my nurse practitioner, Lia Armando. I reviewed the nurse practitioner's note and agree with the documented findings and plan of care. Lung sounds are positive for diffuse crackles. The findings and the impression was discussed with the patient. I attest to the documentation by the nurse practitioner. Time with Patient: Greater than 30
[2018-05-30] MEDS: FUROSEMIDE 40 MG TAB PO SCH ×2 (11:32→16:02)
[2018-05-30] MEDS: SPIRONOLACTONE 25 MG TAB PO SCH (11:32)
--- NOTE | 2018-05-30 11:42 | CT ---
EXAMINATION TYPE: CT abdomen w con DATE OF EXAM: 05/30/2018 COMPARISON: 12/08/2017 HISTORY: 62-year-old female Bilateral upper quadrant pain. TECHNIQUE: Contiguous axial scanning of the abdomen following administration of 100 ml Isovue 300 IV contrast. Delayed images through the kidneys and coronal/sagittal reconstructions performed. CT DLP: 405.3 mGycm Automated exposure control for dose reduction was used. FINDINGS: Heart borderline enlarged with annuloplasty rings. Focal thickened pleura parenchymal opacity periphe ral right base increased from 12/08/2017. No obvious mass is identified. Additional follow-up is recom mended. Liver borderline enlarged at 17.3 cm. Subcentimeter hypodensity posterior right hepatic dome, compati ble with a cyst also seen previously. Portal venous system is patent. Gallbladder is hydropic measuring 4.9 cm white with suggestion of mild wall thickening. There is mild perihepatic ascites tracking down the right paracolic gutter. Renal calcifications suspected to be vascular. Symmetric uptake and excretion of contrast from the ki dneys. Pancreas and spleen show no gross abnormality. Stable low density nodularity left adrenal glan d likely representing an underlying adrenal adenoma. Small bowel loops are dilated up to 3.2 cm. Other other small bowel loops in the mid and lower abdome n are collapsed as is the hepatic flexure. Moderate stool within the left hemicolon. Moderate atherosclerotic calcifications within the abdominal aorta with areas of fusiform dilatation measuring up to 2.2 cm. Moderate to severe arthritic changes in the visualized common iliac arteries. Additional mild free fluid is present along the left flank. No free air is seen. Only the upper abdomen is included in this exam. Extensive mottled material along with fluid in the right lower quadrant suspected to represent stool within the cecum. The bowel and intraluminal space is not clearly delineated in this region. Diffuse anasarca-type change is demonstrated. No osseous destructive process. IMPRESSION: 1. SOME SMALL BOWEL LOOPS DILATED UP TO 3.2 CM WITH AIR-FLUID LEVELS. OTHER SMALL BOWEL LOOPS IN THE LOWER ABDOMEN AND PELVIS ARE COLLAPSED IS SOME OF THE RIGHT SIDE OF THE COLON. Early developing sm all bowel obstruction not excluded. Follow-up recommended. 2. Anasarca-type change and mild free ascites fluid. 3. Prominent mottled material along with fluid in the right lower quadrant suspected to represent mix ed solid and liquid stool in the cecum. The bowel and intraluminal space is not clearly delineated in this region. Given the patient's moderate to severe atherosclerotic changes, correlate with lactic a migue levels. If indicated, a follow-up with oral contrast can be performed. 4. Hydropic gallbladder. If right upper quadrant pain or concern for early acute cholecystitis, consi nayana HIDA scan.
[2018-05-30 12:35] LABS: Glucose,Whole Blood 125 mg/dL (75-99)
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
[2018-05-30 16:58] LABS: Glucose,Whole Blood 154 mg/dL (75-99)
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
[2018-05-30] MEDS ORDERED: HYDROmorphone 1 MG/ML 1 ML SYRINGE IVP PRN (18:50)
[2018-05-30] MEDS: SODIUM CHLORIDE 0.9% 1,000 ML IV SCH (19:47)
--- NOTE | 2018-05-30 23:08 | NM ---
EXAMINATION TYPE: NM hepatobiliary w EF DATE OF EXAM: 05/30/2018 COMPARISON: NONE HISTORY: Pain TECHNIQUE: After the intravenous administration of 5.3 mCi Tc 99m Mebrofenin hepatobiliary scintigrap hy is performed. Immediate images post injection. FINDINGS: There is satisfactory initial accumulation of tracer by the liver. The gallbladder is visualized wit hin 10 minutes. The small bowel activity is noted within 15 minutes. At one hour 8 ounces of oral e nsure plus is given to mimic CCK and gallbladder ejection fraction is calculated at 95 %, in the norm al range. Therefore there is no scintigraphic evidence of cystic or common bile duct obstruction to suggest acute cholecystitis or gallbladder dyskinesia. IMPRESSION: Normal exam. Normal gallbladder ejection fraction. No focal liver defect.
[2018-05-30] MEDS: ATORVASTATIN 80 MG TAB PO SCH (23:29)
[2018-05-30 23:47] LABS: Glucose,Whole Blood 154 mg/dL (75-99)
[2018-05-31] MEDS: IPRATROPIUM-ALBUTEROL 3 ML NEB INHALATION SCH ×7 (00:43→23:14)
[2018-05-31] MEDS: AZITHROMYCIN 500 MG in SODIUM CHLORIDE 0.9% 250 ML IVPB SCH (02:11)
[2018-05-31 06:52] LABS: Glucose,Whole Blood 113 mg/dL (75-99)
[2018-05-31] MEDS: INSULIN ASPART 100 UNIT/ML 1 ML 10 ML VIAL SQ SCH ×4 (06:53→21:10)
[2018-05-31] MEDS: SYMBICORT 160-4.5 MCG INHALER INHALATION SCH ×2 (08:10→19:45)
[2018-05-31 08:37] LABS: Anisocytosis Slight; Basophils % (A) 0 %; Eosinophils # (A) 0.1 k/uL (0-0.7); Eosinophils % (A) 0 %; HCT 24.7 % (34.0-46.0); HGB 7.1 gm/dL (11.4-16.0); Hypochromasia Marked; Lymphocytes # (A) 0.7 k/uL (1.0-4.8); Lymphocytes % (A) 3 %; MCH 22.1 pg (25.0-35.0); MCHC 28.8 g/dL (31.0-37.0); MCV 76.9 fL (80.0-100.0); Mean Platelet Volume 6.5; Microcytosis Slight; Monocytes # (A) 1.1 k/uL (0-1.0); Monocytes % (A) 4 %; Neutrophils % (A) 92 %; Platelet Count 356 k/uL (150-450); Poikilocytosis Moderate; RBC 3.22 m/uL (3.80-5.40); RDW 17.7 % (11.5-15.5); WBC 27.2 k/uL (3.8-10.6)
[2018-05-31 09:07] LABS: Anion Gap 7 mmol/L; Blood Urea Nitrogen 19 mg/dL (7-17); Calcium 8.1 mg/dL (8.4-10.2); Carbon Dioxide 29 mmol/L (22-30); Chloride 102 mmol/L (98-107); Glucose 84 mg/dL (74-99); Potassium 3.7 mmol/L (3.5-5.1); Sodium 138 mmol/L (137-145)
--- NOTE | 2018-05-31 09:11 | P.PN ---
Subjective Progress Note Date: 05/31/18 Principal diagnosis: Acute on chronic hypoxic respiratory failure secondary to acute on chronic systolic congestive heart failure, and COPD exacerbation, suspected sepsis This is a 62-year-old female familiar to my service, known to have history of severe end-stage COPD, chronic hypoxic respiratory failure secondary to COPD, patient is maintained on oxygen and nocturnal BiPAP, brought in last night by EMS complaining of increased shortness of breath, and increased somnolence. This was noted by her grandson was visiting her yesterday at the half-way. She was recently discharged out of [facility] about 5 days ago , and she went to [facility]. According to the patient she was compliant with her bronchodilators, oxygen, BiPAP, but the patient is known to have history of multiple medical problems including hemorrhagic CVA, chronic congestive heart failure, previous brain injury, and she had expressive aphasia for quite some time related to her CVA. Upon presentation to the ER, patient was noted to be dyspneic, and she was having some vague chest discomfort. The patient herself is an extremely poor historian, and most of the information was obtained from her grandson who was standing at bedside. CT of the chest in the ER showed no evidence of pulmonary embolism, prominence of the large central pulmonary arteries, increased pleural effusion bilaterally. ABG showed a pO2 of 51 pCO2 of 38 pH of 7.55. She was noted to have a bit of leukocytosis with WBC count of 18.3 hemoglobin of 8. A relatively normal basic metabolic profile was noted. The patient was placed on oxygen, bronchodilators in the form of DuoNeb, she was given Lasix 40 mg IV push every 12 hours, and she was also placed on methylprednisolone 40 mg IV push every 6 hours. Cardiac meds were resumed including beta blockers, IV fluid was cut down to KVO. 05/30/2018 patient seen in follow-up in the intensive care unit, yesterday in the evening patient became hypotensive, quite tachycardic, and febrile with a temp of 101.5 axillary. Her transfer out of the unit was canceled, and stat chest x-ray, abdominal x-ray, blood cultures, urine cultures and antibiotics were ordered. She became oliguric, patient's Lasix was put on hold, see the IV fluid bolus of 500 mL of normal saline. Not require vasopressor support, Lasix remains on hold this morning, chest x-ray was reviewed by Dr. Jiménez, and shows old infiltrate in the right lower lobe which appears to be clearing compared to previous exams, no signs of heart failure no other acute findings. Abdominal x- ray was reviewed, showed nonacute abdomen, no sign of intestinal obstruction or pneumoperitoneum. This morning patient is seen awake and alert, currently on 5 L per nasal cannula her pulse ox is 98%, running low-grade fevers of 99.2 orally, blood pressures 103/59, non-tachycardic. Today's lab work was reviewed , and there is due to elevation of white blood cell count, up to 37.5, hemoglobin is 8.8, electrolytes were normal limits, BUN is 28 and creatinine 0.57. She denies any worsening dyspnea, lung sounds reveal some diffuse crackles no wheezing or rhonchi. Her abdomen is diffusely tender, particularly in the right upper quadrant area. We'll obtain CT of the abdomen, we will keep the patient nothing by mouth for now, she will remain in the intensive care unit for further monitoring. Will continue current antibiotic coverage, currently she is on azithromycin and Rocephin. On 05/31/2018 patient seen in follow-up in the intensive care unit, she is resting in bed, to have a some diffuse abdominal pain, abdomen is soft, bowel sounds are hypoactive, CT of the abdomen showed a possibility of developing small bowel obstruction, surgery has been consulted, HIDA scan was done, and showed a normal exam, normal gallbladder ejection fraction, no focal liver defect. Low-grade fevers this morning, 99.1 axillary, patient is on 5 L per nasal cannula, she denies any difficulty breathing. Today's labs have been reviewed, leukocytosis is trending down, WBC 27.2, hemoglobin 7.1, BMP has not resulted yet at this time. Blood and urine cultures are negative, patient is not producing any sputum. IV fluids is 0.9 normal saline at a rate of 50 ML per hour. No other drips. She is nonoliguric, she remains nothing by mouth. Objective - Vital Signs Vital signs: Vital Signs Temp 99.1 F 05/31/18 08:00 Pulse 85 05/31/18 08:21 Resp 14 05/31/18 04:00 BP 115/63 05/31/18 08:00 Pulse Ox 96 05/31/18 08:00 Intake & Output 05/30/18 05/31/18 05/31/18 18:59 06:59 18:59 Intake Total 450 100 Output Total 175 275 Balance 275 -175 Weight 48.3 kg Intake: IV 50 100 Sodium Chloride 0.9% 1, 50 100 000 ml @ 50 mls/hr IV . Q20H AGUILA Rx#:[id number] Intake, IV Titration 400 Amount Magnesium Sulfate-D5w Pmx 200 1 gm In Dextrose/Water 1 100ml.bag @ 100 mls/hr IVPB Q1H AGUILA Rx#: [id number] Potassium Chloride 10 meq 200 In Water For Injection 1 100ml.bag @ 100 mls/hr IVPB Q1H AGUILA Rx#: [id number] Output: Urine 175 275 Other: Voiding Method Indwelling Catheter Indwelling Catheter - Exam General appearance: Revealed a 62-year-old female in the ICU as an overflow, in no distress, on few liters nasal cannula. Eye exam: PERRLA, EOMI, no icterus. ENT exam: Moist mucous membranes, normal nasal and oral mucosa, neck is supple, no thyromegaly, no carotid bruits. Respiratory exam: Extremely diminished breath sound bilaterally, some diffuse crackles Cardiovascular Exam: Normal S1 and S2, 2/6 systolic murmur thought the precordium. No rubs. GI/Abdominal exam: Abdomen is diffusely tender, but soft, no nausea or vomiting , active bowel sounds are present Neurological exam: Awake, oriented 1, has some dysphasia.) Psychiatric exam: Normal mood affect, however patient may have poor insight. Skin exam: Good skin turgor, no cyanosis, no rashes. - Labs CBC & Chem 7: 05/31/18 08:03 05/30/18 00:52 Labs: Abnormal Lab Results - Last 24 Hours (Table) 05/30/18 05/30/18 05/30/18 Range/Units 12:24 16:47 23:35 WBC (3.8-10.6) k/uL RBC (3.80-5.40) m/uL Hgb (11.4-16.0) gm/dL Hct (34.0-46.0) % MCV (80.0-100.0) fL MCH (25.0-35.0) pg MCHC (31.0-37.0) g/dL RDW (11.5-15.5) % Neutrophils # (1.3-7.7) k/uL Lymphocytes # (1.0-4.8) k/uL Monocytes # (0-1.0) k/uL POC Glucose (mg/dL) 125 H 154 H 154 H (75-99) mg/dL 05/31/18 05/31/18 Range/Units 06:40 08:03 WBC 27.2 H (3.8-10.6) k/uL RBC 3.22 L (3.80-5.40) m/uL Hgb 7.1 L D (11.4-16.0) gm/dL Hct 24.7 L (34.0-46.0) % MCV 76.9 L (80.0-100.0) fL MCH 22.1 L (25.0-35.0) pg MCHC 28.8 L (31.0-37.0) g/dL RDW 17.7 H (11.5-15.5) % Neutrophils # 25.0 H (1.3-7.7) k/uL Lymphocytes # 0.7 L (1.0-4.8) k/uL Monocytes # 1.1 H (0-1.0) k/uL POC Glucose (mg/dL) 113 H (75-99) mg/dL Microbiology - Last 24 Hours (Table) 05/30/18 15:30 Urine Culture - Preliminary Urine,Catheterized 05/30/18 00:52 Blood Culture - Preliminary Blood No Growth after 24 hours 05/27/18 19:00 Blood Culture - Preliminary Blood No Growth after 72 hours Assessment and Plan Plan: 1. Acute septic shock, and the source of sepsis is under investigation. Patient became hypotensive, tachycardic and febrile and due to elevation of white blood cell count on 05/30/2018. Cultures are collected and are pending at this time patient is covered with empiric antibiotics. 2. Acute abdominal pain, abdominal x-ray was negative for pneumoperitoneum or obstructive pattern, we'll obtain CT of the abdomen 3 acute on chronic hypoxic respiratory failure secondary to acute on chronic systolic congestive heart failure, and acute on chronic COPD exacerbation. 4 CHF with impaired LV dysfunction secondary pulmonary hypertension, with an ejection fraction of 35-40% with secondary pulmonary hypertension 5 coronary artery disease with previous PCI/coronary intervention and stenting and a previous coronary artery bypass surgery 6 peripheral vascular disease, involving mostly lower extremities. 7 hypertension, benign essential. 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 Plan: Continue holding Lasix, patient denies any difficulty breathing, still having diffuse abdominal pain, surgery following, CT abdomen showed a possibility of developing small bowel obstruction, patient was given a suppository with hard small stools. Remains nothing by mouth, his labs show improving trend of white blood cell count, patient will has a low-grade fevers, but hemodynamically she is stable. Blood and urine cultures remain negative thus far. HIDA scan was negative. We'll continue with current antibiotic coverage, nebulized treatments , BiPAP at bedtime and as needed, her prognosis is extremely guarded. I performed a history & physical examination of the patient and discussed their management with my nurse practitioner, Lia Armando. I reviewed the nurse practitioner's note and agree with the documented findings and plan of care. Lung sounds are positive for diffuse crackles. The findings and the impression was discussed with the patient. I attest to the documentation by the nurse practitioner. Time with Patient: Greater than 30
[2018-05-31] MEDS ORDERED: IOPAMIDOL-300 CONTRAST 30 ML VIAL (ORAL USE) PO PRN ×2 (10:04→12:04)
[2018-05-31 11:49] LABS: Glucose,Whole Blood 100 mg/dL (75-99)
--- NOTE | 2018-05-31 12:57 | PN ---
PROGRESS NOTE Mrs Benítez is a lady with end-stage COPD, status post mitral and tricuspid valve repair. She is in sinus rhythm. Yesterday there was a question of sepsis, but no growth by any organisms. She is more stable hemodynamically. S1, S2 heard normally. Short systolic murmur noted. Lungs reveal diminished air entry. Abdomen and lower extremity exam unchanged. I have no new specific suggestions from a cardiac standpoint. We will see the patient as needed and for now her management is mostly for her sepsis and COPD. I will be happy to see her as needed. Thank you very much for the consult. MMODL / IJN: [id number] /
--- NOTE | 2018-05-31 13:31 | CT ---
EXAMINATION TYPE: CT abdomen pelvis wo con DATE OF EXAM: 05/31/2018 HISTORY: small bowel obstruction, abn CT CT DLP: 321.7 mGycm. Automated Exposure Control for Dose Reduction was Utilized. TECHNIQUE: CT scan of the abdomen and pelvis is performed with oral but without IV contrast. COMPARISON: CT abdomen from yesterday. Older CT December 08, 2017 FINDINGS: Within the limitations of a non-contrast study, the following observations are made. LUNG BASES: There is new small to tiny right pleural effusion with associated compressive atelectasis . There is redemonstration of coronary artery calcification. Sternal wires from CABG procedure are ho wever noted. Calcification level of mitral and aortic valves is redemonstrated. LIVER/GB: Gallbladder is redemonstrated dilated with distended margins. Surrounding fluid is again se en. No intraluminal gallstones or surrounding fat stranding is clearly identified. Patient noted to h ave interval negative HIDA scan. Subcentimeter low dense lesion posterior right hepatic dome axial im age 13 is stable presumed benign. PANCREAS: No significant abnormality is seen. SPLEEN: No significant abnormality is seen. ADRENALS: There is stable nonspecific low dense left adrenal mass measuring roughly 1.8 x 1.4 cm axia l image 26 not significantly changed from older studies. Benign lipid rich adenoma is favored. KIDNEYS: Central calcifications in both kidneys favor vascular etiology unchanged from prior studies. Vitale catheter within bladder is seen with decompression. BOWEL: Patient has very little transabdominal fat making evaluation suboptimal. The oral contrast maryann ches level of the right colon thus complete small bowel obstruction is not present. There are some pr ominent contrast filled small bowel loops in the lower abdomen redemonstrated. There is moderate wall thickening in the colon beginning at hepatic flexure extending to proximal transverse colon seen bet ter on current study, a developing colitis at this level cannot be excluded. Fecal material is seen i n nondistended left and sigmoid colon extending into rectum. GENITAL ORGANS: Anteverted uterus is redemonstrated seen best on sagittal images. LYMPH NODES: No greater than 1cm abdominal or pelvic lymph nodes are appreciated. OSSEOUS STRUCTURES: No significant abnormality is seen. OTHER: Severe aftereffect change of aorta extends into branch vessels. Mild to moderate diffuse soft tissue anasarca remains present. IMPRESSION: 1. Oral contrast extends to right colon level. No complete bowel obstruction is present. 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 Differential includes inf ectious and inflammatory etiologies.
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
[2018-05-31] MEDS: FAMOTIDINE 20 MG TAB PO SCH (14:33)
[2018-05-31] MEDS: ASPIRIN 81 MG PO SCH (14:33)
[2018-05-31] MEDS: CYANOCOBALAMIN 500 MCG TAB PO SCH (14:33)
[2018-05-31] MEDS: FUROSEMIDE 40 MG TAB PO SCH ×2 (14:33→15:59)
[2018-05-31] MEDS: DONEPEZIL 5 MG TAB PO SCH (14:33)
[2018-05-31] MEDS: METOPROLOL SUCCINATE (ER) 50 MG TAB.ER.24H PO SCH (14:34)
[2018-05-31] MEDS: LACOSAMIDE 50 MG TABLET PO SCH ×2 (14:34→21:51)
[2018-05-31] MEDS: PARoxetine 20 MG TAB PO SCH (14:34)
[2018-05-31] MEDS: PRIMIDONE 50 MG TAB PO SCH ×3 (14:34→21:52)
[2018-05-31] MEDS: SODIUM CHLORIDE 0.9% 1,000 ML IV SCH (14:35)
[2018-05-31] MEDS: SPIRONOLACTONE 25 MG TAB PO SCH (14:35)
[2018-05-31] MEDS ORDERED: POTASSIUM CHLORIDE ER 20 MEQ TAB.ER PO SCH (16:00)
--- NOTE | 2018-05-31 16:43 | P.PN ---
Progress Note - Text Progress Note Date: 05/31/18 The patient has some complaints of some abdominal bloating and some minimal abdominal pain. CAT scan performed today shows evidence of right colon and transverse colon inflammation. There is no evidence of the valve structure. Contrast is seen within the colon. On exam her vital signs appear stable. Her abdomen is soft. There is minimal tenderness. There is no rebound or guarding. Colitis. Patient will be treated with IV antibiotic. We will resume full liquid diet.
[2018-05-31 17:42] LABS: Glucose,Whole Blood 109 mg/dL (75-99)
[2018-05-31 20:53] LABS: Glucose,Whole Blood 98 mg/dL (75-99)
[2018-05-31] MEDS: ATORVASTATIN 80 MG TAB PO SCH (21:51)
[2018-05-31] MEDS: ALPRAZolam 0.25 MG TAB PO PRN (21:52)
[2018-06-01] MEDS: AZITHROMYCIN 500 MG in SODIUM CHLORIDE 0.9% 250 ML IVPB SCH (01:26)
[2018-06-01] MEDS: IPRATROPIUM-ALBUTEROL 3 ML NEB INHALATION SCH ×5 (03:19→19:41)
[2018-06-01 05:24] LABS: Anisocytosis Slight; Basophils % (A) 0 %; Eosinophils # (A) 0.1 k/uL (0-0.7); Eosinophils % (A) 1 %; HCT 25.2 % (34.0-46.0); Hypochromasia Marked; Lymphocytes # (A) 0.7 k/uL (1.0-4.8); Lymphocytes % (A) 4 %; MCH 21.5 pg (25.0-35.0); MCHC 27.6 g/dL (31.0-37.0); Mean Platelet Volume 6.6; Microcytosis Slight; Monocytes # (A) 1.1 k/uL (0-1.0); Monocytes % (A) 5 %; Neutrophils # (A) 18.2 k/uL (1.3-7.7); Neutrophils % (A) 89 %; Platelet Count 373 k/uL (150-450); Poikilocytosis Slight; RBC 3.23 m/uL (3.80-5.40); RDW 18.2 % (11.5-15.5); WBC 20.4 k/uL (3.8-10.6)
[2018-06-01 05:28] LABS: Anion Gap 6 mmol/L; Blood Urea Nitrogen 14 mg/dL (7-17); Calcium 8.3 mg/dL (8.4-10.2); Carbon Dioxide 24 mmol/L (22-30); Chloride 104 mmol/L (98-107); Glucose 86 mg/dL (74-99); Phosphorus 2.9 mg/dL (2.5-4.5); Potassium 4.5 mmol/L (3.5-5.1); Sodium 134 mmol/L (137-145)
[2018-06-01 05:44] LABS: Magnesium 1.9 mg/dL (1.6-2.3)
[2018-06-01 06:16] LABS: Glucose,Whole Blood 99 mg/dL (75-99)
[2018-06-01] MEDS: INSULIN ASPART 100 UNIT/ML 1 ML 10 ML VIAL SQ SCH ×4 (06:21→20:58)
--- NOTE | 2018-06-01 07:27 | XR ---
EXAMINATION TYPE: XR chest 1V DATE OF EXAM: 06/01/2018 HISTORY: Shortness of breath. COMPARISON: 05/30/2018 TECHNIQUE: Single view of the chest is submitted. FINDINGS: Demonstrated are scattered senescent parenchymal change. Pulmonary venous congestion with pleural effusions and scattered infiltrates has a progress. Progress studies recommended. The heart is stable. Hilar and mediastinal structures are within normal limits. Degenerative changes are seen of the dorsal spine. IMPRESSION: 1. Pulmonary venous congestion with pleural effusions and scattered infiltrates has a progress. Prog ress studies recommended.
[2018-06-01] MEDS: SYMBICORT 160-4.5 MCG INHALER INHALATION SCH ×2 (08:30→19:42)
[2018-06-01] MEDS: PARoxetine 20 MG TAB PO SCH (08:58)
[2018-06-01] MEDS: DONEPEZIL 5 MG TAB PO SCH (08:58)
[2018-06-01] MEDS: CYANOCOBALAMIN 500 MCG TAB PO SCH (08:58)
[2018-06-01] MEDS: METOPROLOL SUCCINATE (ER) 50 MG TAB.ER.24H PO SCH (08:58)
[2018-06-01] MEDS: LACOSAMIDE 50 MG TABLET PO SCH ×2 (08:58→21:02)
[2018-06-01] MEDS: PRIMIDONE 50 MG TAB PO SCH ×3 (08:59→21:02)
[2018-06-01] MEDS: FUROSEMIDE 40 MG TAB PO SCH ×2 (08:59→16:11)
[2018-06-01] MEDS: ASPIRIN 81 MG PO SCH (08:59)
[2018-06-01] MEDS: FAMOTIDINE 20 MG TAB PO SCH (08:59)
[2018-06-01] MEDS: SPIRONOLACTONE 25 MG TAB PO SCH (08:59)
[2018-06-01] MEDS: SODIUM CHLORIDE 0.9% 1,000 ML IV SCH (09:07)
--- NOTE | 2018-06-01 09:31 | P.PN ---
Subjective Progress Note Date: 06/01/18 Principal diagnosis: Acute on chronic hypoxic respiratory failure secondary to acute on chronic systolic congestive heart failure, and COPD exacerbation, suspected sepsis This is a 62-year-old female familiar to my service, known to have history of severe end-stage COPD, chronic hypoxic respiratory failure secondary to COPD, patient is maintained on oxygen and nocturnal BiPAP, brought in last night by EMS complaining of increased shortness of breath, and increased somnolence. This was noted by her grandson was visiting her yesterday at the shelter. She was recently discharged out of [facility] about 5 days ago , and she went to [facility]. According to the patient she was compliant with her bronchodilators, oxygen, BiPAP, but the patient is known to have history of multiple medical problems including hemorrhagic CVA, chronic congestive heart failure, previous brain injury, and she had expressive aphasia for quite some time related to her CVA. Upon presentation to the ER, patient was noted to be dyspneic, and she was having some vague chest discomfort. The patient herself is an extremely poor historian, and most of the information was obtained from her grandson who was standing at bedside. CT of the chest in the ER showed no evidence of pulmonary embolism, prominence of the large central pulmonary arteries, increased pleural effusion bilaterally. ABG showed a pO2 of 51 pCO2 of 38 pH of 7.55. She was noted to have a bit of leukocytosis with WBC count of 18.3 hemoglobin of 8. A relatively normal basic metabolic profile was noted. The patient was placed on oxygen, bronchodilators in the form of DuoNeb, she was given Lasix 40 mg IV push every 12 hours, and she was also placed on methylprednisolone 40 mg IV push every 6 hours. Cardiac meds were resumed including beta blockers, IV fluid was cut down to KVO. 05/30/2018 patient seen in follow-up in the intensive care unit, yesterday in the evening patient became hypotensive, quite tachycardic, and febrile with a temp of 101.5 axillary. Her transfer out of the unit was canceled, and stat chest x-ray, abdominal x-ray, blood cultures, urine cultures and antibiotics were ordered. She became oliguric, patient's Lasix was put on hold, see the IV fluid bolus of 500 mL of normal saline. Not require vasopressor support, Lasix remains on hold this morning, chest x-ray was reviewed by Dr. Jiménez, and shows old infiltrate in the right lower lobe which appears to be clearing compared to previous exams, no signs of heart failure no other acute findings. Abdominal x- ray was reviewed, showed nonacute abdomen, no sign of intestinal obstruction or pneumoperitoneum. This morning patient is seen awake and alert, currently on 5 L per nasal cannula her pulse ox is 98%, running low-grade fevers of 99.2 orally, blood pressures 103/59, non-tachycardic. Today's lab work was reviewed , and there is due to elevation of white blood cell count, up to 37.5, hemoglobin is 8.8, electrolytes were normal limits, BUN is 28 and creatinine 0.57. She denies any worsening dyspnea, lung sounds reveal some diffuse crackles no wheezing or rhonchi. Her abdomen is diffusely tender, particularly in the right upper quadrant area. We'll obtain CT of the abdomen, we will keep the patient nothing by mouth for now, she will remain in the intensive care unit for further monitoring. Will continue current antibiotic coverage, currently she is on azithromycin and Rocephin. On 05/31/2018 patient seen in follow-up in the intensive care unit, she is resting in bed, to have a some diffuse abdominal pain, abdomen is soft, bowel sounds are hypoactive, CT of the abdomen showed a possibility of developing small bowel obstruction, surgery has been consulted, HIDA scan was done, and showed a normal exam, normal gallbladder ejection fraction, no focal liver defect. Low-grade fevers this morning, 99.1 axillary, patient is on 5 L per nasal cannula, she denies any difficulty breathing. Today's labs have been reviewed, leukocytosis is trending down, WBC 27.2, hemoglobin 7.1, BMP has not resulted yet at this time. Blood and urine cultures are negative, patient is not producing any sputum. IV fluids is 0.9 normal saline at a rate of 50 ML per hour. No other drips. She is nonoliguric, she remains nothing by mouth. On 06/01/2018 patient seen again in follow-up in the intensive care unit, she is awake and alert, abdomen is less tender today, is soft, bowel sounds are hypoactive, follow-up CT of the abdomen and pelvis completed yesterday, and showed complete bowel obstruction, possible developing colitis from hepatic flexure through mid transverse colon, as well as infectious or inflammatory etiology. Surgeries on the case, patient is tolerating full liquid diet, is on antibiotics. She denies any worsening shortness of breath, today's chest x-ray shows pulmonary venous congestion or pleural effusions. We'll resume patient's oral Lasix, as oxygenation patient is maintaining good oxygenation on 3 L per nasal cannula, pulse ox is 95%, no fever or chills, lung sounds are diminished. She is remain negative. She did wear her BiPAP last night for about 2 hours. No acute distress today. She is nonoliguric, producing urine in order of 50-100 ML per hour. IV fluid for gentle hydration at 50 ML per hour. His labs have been reviewed, shows WBC of 20.4, hemoglobin is 7.0, sodium is 134, a breast electrolytes and renal profile are unremarkable. Objective - Vital Signs Vital signs: Vital Signs Temp 98.0 F 06/01/18 04:00 Pulse 80 06/01/18 09:00 Resp 22 06/01/18 09:00 BP 138/81 06/01/18 09:00 Pulse Ox 95 06/01/18 09:00 Intake & Output 05/31/18 06/01/18 06/01/18 18:59 06:59 18:59 Intake Total 740 670 300 Output Total 630 925 125 Balance 110 -255 175 Weight 48.3 kg 46.2 kg Intake: IV 500 550 100 Sodium Chloride 0.9% 1, 500 550 100 000 ml @ 50 mls/hr IV . Q20H [facility] Rx#:[id number] Oral 240 120 200 Output: Urine 630 925 125 Other: Voiding Method Indwelling Catheter Indwelling Catheter - Exam General appearance: Revealed a 62-year-old female in the ICU as an overflow, in no distress, on few liters nasal cannula. Eye exam: PERRLA, EOMI, no icterus. ENT exam: Moist mucous membranes, normal nasal and oral mucosa, neck is supple, no thyromegaly, no carotid bruits. Respiratory exam: Extremely diminished breath sound bilaterally, some diffuse crackles Cardiovascular Exam: Normal S1 and S2, 2/6 systolic murmur thought the precordium. No rubs. GI/Abdominal exam: Abdomen is minimally tender, but soft, no nausea or vomiting , active bowel sounds are present Neurological exam: Awake, oriented 1, has some dysphasia.) Psychiatric exam: Normal mood affect, however patient may have poor insight. Skin exam: Good skin turgor, no cyanosis, no rashes. - Labs CBC & Chem 7: 06/01/18 04:37 06/01/18 04:37 Labs: Abnormal Lab Results - Last 24 Hours (Table) 05/31/18 05/31/18 06/01/18 Range/Units 11:37 17:31 04:37 WBC 20.4 H (3.8-10.6) k/uL RBC 3.23 L (3.80-5.40) m/uL Hgb 7.0 L (11.4-16.0) gm/dL Hct 25.2 L (34.0-46.0) % MCV 78.0 L (80.0-100.0) fL MCH 21.5 L (25.0-35.0) pg MCHC 27.6 L (31.0-37.0) g/dL RDW 18.2 H (11.5-15.5) % Neutrophils # 18.2 H (1.3-7.7) k/uL Lymphocytes # 0.7 L (1.0-4.8) k/uL Monocytes # 1.1 H (0-1.0) k/uL Sodium (137-145) mmol/L Creatinine (0.52-1.04) mg/dL POC Glucose (mg/dL) 100 H 109 H (75-99) mg/dL Calcium (8.4-10.2) mg/dL 06/01/18 Range/Units 04:37 WBC (3.8-10.6) k/uL RBC (3.80-5.40) m/uL Hgb (11.4-16.0) gm/dL Hct (34.0-46.0) % MCV (80.0-100.0) fL MCH (25.0-35.0) pg MCHC (31.0-37.0) g/dL RDW (11.5-15.5) % Neutrophils # (1.3-7.7) k/uL Lymphocytes # (1.0-4.8) k/uL Monocytes # (0-1.0) k/uL Sodium 134 L (137-145) mmol/L Creatinine 0.42 L (0.52-1.04) mg/dL POC Glucose (mg/dL) (75-99) mg/dL Calcium 8.3 L (8.4-10.2) mg/dL Microbiology - Last 24 Hours (Table) 05/30/18 00:52 Blood Culture - Preliminary Blood No Growth after 48 hours 05/27/18 19:00 Blood Culture - Preliminary Blood No Growth after 96 hours 05/30/18 15:30 Urine Culture - Preliminary Urine,Catheterized Assessment and Plan Plan: 1. Acute septic shock, and the source of sepsis is under investigation. Patient became hypotensive, tachycardic and febrile and due to elevation of white blood cell count on 05/30/2018. Cultures are collected and are pending at this time patient is covered with empiric antibiotics. On 06/01/2018 white count is trending down, no fever or chills, cultures are negative thus far. Follow-up CAT scan of abdomen and pelvis showed possible colitis, possibly inflammatory or infectious, surgeries on the case, patient is on antibiotics, abdominal tenderness is improving, patient is tolerating full liquid diet. 2. Acute abdominal pain, abdominal x-ray was negative for pneumoperitoneum or obstructive pattern, we'll obtain CT of the abdomen 3 acute on chronic hypoxic respiratory failure secondary to acute on chronic systolic congestive heart failure, and acute on chronic COPD exacerbation. 4 CHF with impaired LV dysfunction secondary pulmonary hypertension, with an ejection fraction of 35-40% with secondary pulmonary hypertension 5 coronary artery disease with previous PCI/coronary intervention and stenting and a previous coronary artery bypass surgery 6 peripheral vascular disease, involving mostly lower extremities. 7 hypertension, benign essential. 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 Plan: We will restart patient's oral Lasix, today's chest x-ray has been reviewed, and shows pulmonary vessel congestion and bilateral pleural effusions, oxygenation prabhakar patient is maintaining stable oxygenation on 3 L per nasal cannula, in no acute distress, no worsening dyspnea, wearing BiPAP at night and as needed. No fever or chills, cultures are negative, surgeries on the case, we 'll continue with IV antibiotics. Awaiting full liquid diet, abdominal tenderness has improved, he'll has not passed a significant bowel movement. I performed a history & physical examination of the patient and discussed their management with my nurse practitioner, Lia Armando. I reviewed the nurse practitioner's note and agree with the documented findings and plan of care. Lung sounds are positive for diffuse crackles. The findings and the impression was discussed with the patient. I attest to the documentation by the nurse practitioner. Time with Patient: Greater than 30
[2018-06-01 12:00] LABS: Glucose,Whole Blood 103 mg/dL (75-99)
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
--- NOTE | 2018-06-01 13:53 | P.PN ---
Progress Note - Text Progress Note Date: 06/01/18 The patient remains in the ICU. She apparently is getting Lasix for fluid overload. She has some minimal abdominal pain. On exam her vital signs appear stable. Abdomen soft there is some minimal tenderness. There is some minimal distention. Colitis of right and transverse colon. Patient will continue to receive supportive care. We'll plan for colonoscopy as an outpatient.
[2018-06-01 17:24] LABS: Glucose,Whole Blood 97 mg/dL (75-99)
[2018-06-01] MEDS: ALPRAZolam 0.25 MG TAB PO PRN (21:02)
[2018-06-01] MEDS: ATORVASTATIN 80 MG TAB PO SCH (21:02)
[2018-06-01 21:05] LABS: Glucose,Whole Blood 104 mg/dL (75-99)
[2018-06-02] MEDS: IPRATROPIUM-ALBUTEROL 3 ML NEB INHALATION SCH ×6 (00:42→20:35)
[2018-06-02] MEDS: SODIUM CHLORIDE 0.9% 1,000 ML IV SCH (03:29)
[2018-06-02 06:57] LABS: Glucose,Whole Blood 126 mg/dL (75-99)
[2018-06-02] MEDS: INSULIN ASPART 100 UNIT/ML 1 ML 10 ML VIAL SQ SCH ×4 (07:02→21:11)
[2018-06-02] MEDS ORDERED: Magnesium Replacement Protocol 1 EACH MISC MISCELLANE PRN (07:05)
[2018-06-02] MEDS: SYMBICORT 160-4.5 MCG INHALER INHALATION SCH ×2 (07:18→20:35)
[2018-06-02] MEDS: CYANOCOBALAMIN 500 MCG TAB PO SCH (09:06)
[2018-06-02] MEDS: SPIRONOLACTONE 25 MG TAB PO SCH (09:06)
[2018-06-02] MEDS: FUROSEMIDE 40 MG TAB PO SCH ×2 (09:07→15:09)
[2018-06-02] MEDS: LACOSAMIDE 50 MG TABLET PO SCH ×2 (09:07→21:09)
[2018-06-02] MEDS: PRIMIDONE 50 MG TAB PO SCH ×3 (09:07→21:53)
[2018-06-02] MEDS: FAMOTIDINE 20 MG TAB PO SCH (09:07)
[2018-06-02] MEDS: METOPROLOL SUCCINATE (ER) 50 MG TAB.ER.24H PO SCH (09:07)
[2018-06-02] MEDS: ASPIRIN 81 MG PO SCH (09:07)
[2018-06-02] MEDS: DONEPEZIL 5 MG TAB PO SCH (09:07)
[2018-06-02] MEDS: PARoxetine 20 MG TAB PO SCH (09:11)
[2018-06-02 09:16] LABS: Anisocytosis Slight; Basophils % (A) 0 %; Eosinophils # (A) 0.1 k/uL (0-0.7); Eosinophils % (A) 1 %; HCT 27.6 % (34.0-46.0); HGB 7.8 gm/dL (11.4-16.0); Hypochromasia Marked; Lymphocytes % (A) 5 %; MCHC 28.1 g/dL (31.0-37.0); MCV 74.6 fL (80.0-100.0); Mean Platelet Volume 6.8; Microcytosis Moderate; Monocytes # (A) 1.3 k/uL (0-1.0); Monocytes % (A) 7 %; Neutrophils % (A) 86 %; Platelet Count 472 k/uL (150-450); Poikilocytosis Slight; RDW 18.3 % (11.5-15.5); WBC 18.6 k/uL (3.8-10.6)
[2018-06-02 09:35] LABS: Anion Gap 9 mmol/L; Blood Urea Nitrogen 12 mg/dL (7-17); Calcium 8.5 mg/dL (8.4-10.2); Carbon Dioxide 31 mmol/L (22-30); Chloride 96 mmol/L (98-107); Glucose 132 mg/dL (74-99); Magnesium 1.5 mg/dL (1.6-2.3); Potassium 3.5 mmol/L (3.5-5.1); Sodium 136 mmol/L (137-145)
--- NOTE | 2018-06-02 10:28 | P.PN ---
Subjective Progress Note Date: 06/02/18 Principal diagnosis: Acute on chronic hypoxic respiratory failure secondary to acute on chronic systolic congestive heart failure, and COPD exacerbation, suspected sepsis This is a 62-year-old female familiar to my service, known to have history of severe end-stage COPD, chronic hypoxic respiratory failure secondary to COPD, patient is maintained on oxygen and nocturnal BiPAP, brought in last night by EMS complaining of increased shortness of breath, and increased somnolence. This was noted by her grandson was [facility]. She was recently discharged out of [facility] about 5 days ago , and she went to [facility]. According to the patient she was compliant with her bronchodilators, oxygen, BiPAP, but the patient is known to have history of multiple medical problems including hemorrhagic CVA, chronic congestive heart failure, previous brain injury, and she had expressive aphasia for quite some time related to her CVA. Upon presentation to the ER, patient was noted to be dyspneic, and she was having some vague chest discomfort. The patient herself is an extremely poor historian, and most of the information was obtained from her grandson who was standing at bedside. CT of the chest in the ER showed no evidence of pulmonary embolism, prominence of the large central pulmonary arteries, increased pleural effusion bilaterally. ABG showed a pO2 of 51 pCO2 of 38 pH of 7.55. She was noted to have a bit of leukocytosis with WBC count of 18.3 hemoglobin of 8. A relatively normal basic metabolic profile was noted. The patient was placed on oxygen, bronchodilators in the form of DuoNeb, she was given Lasix 40 mg IV push every 12 hours, and she was also placed on methylprednisolone 40 mg IV push every 6 hours. Cardiac meds were resumed including beta blockers, IV fluid was cut down to KVO. 05/30/2018 patient seen in follow-up in the intensive care unit, yesterday in the evening patient became hypotensive, quite tachycardic, and febrile with a temp of 101.5 axillary. Her transfer out of the unit was canceled, and stat chest x-ray, abdominal x-ray, blood cultures, urine cultures and antibiotics were ordered. She became oliguric, patient's Lasix was put on hold, see the IV fluid bolus of 500 mL of normal saline. Not require vasopressor support, Lasix remains on hold this morning, chest x-ray was reviewed by Dr. Jiménez, and shows old infiltrate in the right lower lobe which appears to be clearing compared to previous exams, no signs of heart failure no other acute findings. Abdominal x- ray was reviewed, showed nonacute abdomen, no sign of intestinal obstruction or pneumoperitoneum. This morning patient is seen awake and alert, currently on 5 L per nasal cannula her pulse ox is 98%, running low-grade fevers of 99.2 orally, blood pressures 103/59, non-tachycardic. Today's lab work was reviewed , and there is due to elevation of white blood cell count, up to 37.5, hemoglobin is 8.8, electrolytes were normal limits, BUN is 28 and creatinine 0.57. She denies any worsening dyspnea, lung sounds reveal some diffuse crackles no wheezing or rhonchi. Her abdomen is diffusely tender, particularly in the right upper quadrant area. We'll obtain CT of the abdomen, we will keep the patient nothing by mouth for now, she will remain in the intensive care unit for further monitoring. Will continue current antibiotic coverage, currently she is on azithromycin and Rocephin. On 05/31/2018 patient seen in follow-up in the intensive care unit, she is resting in bed, to have a some diffuse abdominal pain, abdomen is soft, bowel sounds are hypoactive, CT of the abdomen showed a possibility of developing small bowel obstruction, surgery has been consulted, HIDA scan was done, and showed a normal exam, normal gallbladder ejection fraction, no focal liver defect. Low-grade fevers this morning, 99.1 axillary, patient is on 5 L per nasal cannula, she denies any difficulty breathing. Today's labs have been reviewed, leukocytosis is trending down, WBC 27.2, hemoglobin 7.1, BMP has not resulted yet at this time. Blood and urine cultures are negative, patient is not producing any sputum. IV fluids is 0.9 normal saline at a rate of 50 ML per hour. No other drips. She is nonoliguric, she remains nothing by mouth. On 06/01/2018 patient seen again in follow-up in the intensive care unit, she is awake and alert, abdomen is less tender today, is soft, bowel sounds are hypoactive, follow-up CT of the abdomen and pelvis completed yesterday, and showed complete bowel obstruction, possible developing colitis from hepatic flexure through mid transverse colon, as well as infectious or inflammatory etiology. Surgeries on the case, patient is tolerating full liquid diet, is on antibiotics. She denies any worsening shortness of breath, today's chest x-ray shows pulmonary venous congestion or pleural effusions. We'll resume patient's oral Lasix, as oxygenation patient is maintaining good oxygenation on 3 L per nasal cannula, pulse ox is 95%, no fever or chills, lung sounds are diminished. She is remain negative. She did wear her BiPAP last night for about 2 hours. No acute distress today. She is nonoliguric, producing urine in order of 50-100 ML per hour. IV fluid for gentle hydration at 50 ML per hour. His labs have been reviewed, shows WBC of 20.4, hemoglobin is 7.0, sodium is 134, a breast electrolytes and renal profile are unremarkable. On 06/02/2018 patient seen in follow-up in the intensive care unit, she is awake and alert, denies any acute distress, denies any difficulty breathing, abdomen is soft, minimally tender, patient is tolerating full liquid diet, no vomiting, no nausea, patient still has not had good bowel movement, she was given a suppository couple days ago, with minimal results with heart stool. Gen. surgery is following, patient is afebrile, vital signs are stable. 3 L nasal cannula patient's pulse ox is 92-94%, single low-grade fever this morning with 99.1F, lung sounds are diminished, no rhonchi or wheezes noted on today's exam, no new chest x-rays, labs were reviewed, WBC continues to trend down, today it's 18.6, hemoglobin 7.8, sodium is 136, potassium is 3.5, chloride is 96 , CO2 is 31, BUN is 12 and creatinine 0.45. No acute events overnight, patient is nonoliguric. Objective - Vital Signs Vital signs: Vital Signs Temp 99.1 F 06/02/18 08:00 Pulse 83 06/02/18 10:00 Resp 32 H 06/02/18 10:00 BP 115/70 06/02/18 10:00 Pulse Ox 92 L 06/02/18 10:00 Intake & Output 06/01/18 06/02/18 06/02/18 18:59 06:59 18:59 Intake Total 1500 300 320 Output Total 2525 1100 275 Balance -1025 -800 45 Weight 46.2 kg 43.7 kg Intake: IV 300 300 200 Sodium Chloride 0.9% 1, 300 300 200 000 ml @ 50 mls/hr IV . Q20H [facility] Rx#:[id number] Oral 1200 120 Output: Urine 2525 1100 275 Other: Voiding Method Indwelling Catheter Indwelling Catheter - Exam General appearance: Revealed a 62-year-old female in the ICU as an overflow, in no distress, on few liters nasal cannula. Eye exam: PERRLA, EOMI, no icterus. ENT exam: Moist mucous membranes, normal nasal and oral mucosa, neck is supple, no thyromegaly, no carotid bruits. Respiratory exam: Extremely diminished breath sound bilaterally, some diffuse crackles Cardiovascular Exam: Normal S1 and S2, 2/6 systolic murmur thought the precordium. No rubs. GI/Abdominal exam: Abdomen is minimally tender, but soft, no nausea or vomiting , active bowel sounds are present Neurological exam: Awake, oriented 1, has some dysphasia.) Psychiatric exam: Normal mood affect, however patient may have poor insight. Skin exam: Good skin turgor, no cyanosis, no rashes. - Labs CBC & Chem 7: 06/02/18 08:47 06/02/18 08:47 Labs: Abnormal Lab Results - Last 24 Hours (Table) 06/01/18 06/01/18 06/02/18 Range/Units 11:49 20:53 06:46 WBC (3.8-10.6) k/uL RBC (3.80-5.40) m/uL Hgb (11.4-16.0) gm/dL Hct (34.0-46.0) % MCV (80.0-100.0) fL MCH (25.0-35.0) pg MCHC (31.0-37.0) g/dL RDW (11.5-15.5) % Plt Count (150-450) k/uL Neutrophils # (1.3-7.7) k/uL Monocytes # (0-1.0) k/uL Sodium (137-145) mmol/L Chloride (98-107) mmol/L Carbon Dioxide (22-30) mmol/L Creatinine (0.52-1.04) mg/dL Glucose (74-99) mg/dL POC Glucose (mg/dL) 103 H 104 H 126 H (75-99) mg/dL Magnesium (1.6-2.3) mg/dL 06/02/18 06/02/18 Range/Units 08:47 08:47 WBC 18.6 H (3.8-10.6) k/uL RBC 3.70 L (3.80-5.40) m/uL Hgb 7.8 L (11.4-16.0) gm/dL Hct 27.6 L (34.0-46.0) % MCV 74.6 L (80.0-100.0) fL MCH 21.0 L (25.0-35.0) pg MCHC 28.1 L (31.0-37.0) g/dL RDW 18.3 H (11.5-15.5) % Plt Count 472 H (150-450) k/uL Neutrophils # 16.0 H (1.3-7.7) k/uL Monocytes # 1.3 H (0-1.0) k/uL Sodium 136 L (137-145) mmol/L Chloride 96 L (98-107) mmol/L Carbon Dioxide 31 H (22-30) mmol/L Creatinine 0.45 L (0.52-1.04) mg/dL Glucose 132 H (74-99) mg/dL POC Glucose (mg/dL) (75-99) mg/dL Magnesium 1.5 L (1.6-2.3) mg/dL Microbiology - Last 24 Hours (Table) 05/30/18 00:52 Blood Culture - Preliminary Blood No Growth after 72 hours 05/27/18 19:00 Blood Culture - Preliminary Blood No Growth after 120 hours 05/30/18 15:30 Urine Culture - Final Urine,Catheterized Assessment and Plan Plan: 1. Acute septic shock, and the source of sepsis is under investigation. Patient became hypotensive, tachycardic and febrile and due to elevation of white blood cell count on 05/30/2018. Cultures are collected and are pending at this time patient is covered with empiric antibiotics. On 06/01/2018 white count is trending down, no fever or chills, cultures are negative thus far. Follow-up CAT scan of abdomen and pelvis showed possible colitis, possibly inflammatory or infectious, surgeries on the case, patient is on antibiotics, abdominal tenderness is improving, patient is tolerating full liquid diet. On 06/02/2018 patient seen in follow-up in the intensive care unit, awake and alert, in no acute distress, abdomen is minimally tender, soft, no nausea or vomiting, white blood cell count continues to trend down, no fever or chills, cultures remain negative, patient denies any difficulty breathing, she is tolerating full liquid diet, still has not had significant bowel movement, had a suppository couple days ago with small results of hard stool. Vitals are stable. No acute events overnight 2. Acute abdominal pain, abdominal x-ray was negative for pneumoperitoneum or obstructive pattern, we'll obtain CT of the abdomen 3 acute on chronic hypoxic respiratory failure secondary to acute on chronic systolic congestive heart failure, and acute on chronic COPD exacerbation. 4 CHF with impaired LV dysfunction secondary pulmonary hypertension, with an ejection fraction of 35-40% with secondary pulmonary hypertension 5 coronary artery disease with previous PCI/coronary intervention and stenting and a previous coronary artery bypass surgery 6 peripheral vascular disease, involving mostly lower extremities. 7 hypertension, benign essential. 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 Plan: Continue current antibiotic coverage, clinically patient is stable, leukocytosis is improving, no fever or chills, abdomen is minimally tender, patient is tolerating full liquid diet, we will inquire with surgery with the patient needs enemas or suppositories, he has not had any significant bowel movement in several days. Pulmonary perspective she is stable, no worsening dyspnea, she is on a couple liters per nasal cannula, maintaining stable oxygenation. She is nonoliguric, cultures are negative. No new chest x-ray today, patient can be transferred out of the intensive care unit today to medical surgical floor. I performed a history & physical examination of the patient and discussed their management with my nurse practitioner, Lia Armando. I reviewed the nurse practitioner's note and agree with the documented findings and plan of care. Lung sounds are positive for diffuse crackles. The findings and the impression was discussed with the patient. I attest to the documentation by the nurse practitioner. Time with Patient: Greater than 30
[2018-06-02] MEDS: MAGNESIUM SULFATE-D5W PMX 1 GM in DEXTROSE/WATER 1 100ML.BAG IVPB SCH ×2 (10:34→11:51)
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
[2018-06-02] MEDS: POTASSIUM CHLORIDE 10 MEQ in WATER FOR INJECTION 1 100ML.BAG IVPB SCH ×4 (11:53→18:39)
[2018-06-02 11:55] LABS: Glucose,Whole Blood 145 mg/dL (75-99)
--- NOTE | 2018-06-02 13:48 | P.PN ---
Progress Note - Text Progress Note Date: 06/02/18 Patient feels slightly better today. She is tolerating her diet. Her white count is decreased 18,000. On exam her vital signs are stable. Her abdomen is soft. Resolving right-sided colitis. Patient will be transferred to the surgical floor. We will slowly advance her diet.
[2018-06-02 17:09] LABS: Glucose,Whole Blood 123 mg/dL (75-99)
[2018-06-02 20:01] LABS: Glucose,Whole Blood 136 mg/dL (75-99)
[2018-06-02] MEDS: ATORVASTATIN 80 MG TAB PO SCH (21:09)
[2018-06-02] MEDS: ALPRAZolam 0.25 MG TAB PO PRN (21:09)
[2018-06-03] MEDS: SODIUM CHLORIDE 0.9% 1,000 ML IV SCH ×2 (02:33→16:20)
[2018-06-03 07:09] LABS: Glucose,Whole Blood 135 mg/dL (75-99)
[2018-06-03] MEDS: SYMBICORT 160-4.5 MCG INHALER INHALATION SCH ×2 (07:57→19:48)
[2018-06-03] MEDS: IPRATROPIUM-ALBUTEROL 3 ML NEB INHALATION SCH ×4 (07:57→19:48)
[2018-06-03] MEDS: ASPIRIN 81 MG PO SCH (08:37)
[2018-06-03] MEDS: INSULIN ASPART 100 UNIT/ML 1 ML 10 ML VIAL SQ SCH ×4 (08:37→21:23)
[2018-06-03] MEDS: CYANOCOBALAMIN 500 MCG TAB PO SCH (08:37)
[2018-06-03] MEDS: DONEPEZIL 5 MG TAB PO SCH (08:38)
[2018-06-03] MEDS: FUROSEMIDE 40 MG TAB PO SCH ×2 (08:41→16:25)
[2018-06-03] MEDS: METOPROLOL SUCCINATE (ER) 50 MG TAB.ER.24H PO SCH (08:41)
[2018-06-03] MEDS: FAMOTIDINE 20 MG TAB PO SCH (08:41)
[2018-06-03] MEDS: SPIRONOLACTONE 25 MG TAB PO SCH (08:42)
[2018-06-03] MEDS: PARoxetine 20 MG TAB PO SCH (08:42)
[2018-06-03] MEDS: PRIMIDONE 50 MG TAB PO SCH ×3 (08:42→21:28)
[2018-06-03] MEDS: LACOSAMIDE 50 MG TABLET PO SCH ×2 (08:46→21:28)
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
--- NOTE | 2018-06-03 11:34 | P.PN ---
Subjective Progress Note Date: 06/03/18 Principal diagnosis: Abdominal pain Patient appears to be doing well. Tolerating diet. Denies any significant pain. Some loose stools. No rectal bleeding. No labs today. Objective - Vital Signs Vital signs: Vital Signs Temp 97.7 F 06/03/18 05:00 Pulse 88 06/03/18 08:08 Resp 20 06/03/18 05:00 BP 162/71 06/03/18 05:00 Pulse Ox 92 L 06/03/18 08:01 Intake & Output 06/02/18 06/03/18 06/03/18 18:59 06:59 18:59 Intake Total 770 1100 Output Total 850 1200 Balance -80 -100 Intake: IV 250 400 Sodium Chloride 0.9% 1, 250 400 000 ml @ 50 mls/hr IV . Q20H [facility] Rx#:[id number] Intake, IV Titration 400 100 Amount Magnesium Sulfate-D5w Pmx 300 1 gm In Dextrose/Water 1 100ml.bag @ 100 mls/hr IVPB Q1H [facility] Rx#: [id number] Potassium Chloride 10 meq 100 In Water For Injection 1 100ml.bag @ 100 mls/hr IVPB Q1HR [facility] Rx#: [id number] cefTRIAXone 1,000 mg In 100 Sodium Chloride 0.9% 50 ml @ 100 mls/hr IVPB Q24H [facility] Rx#:[id number] Oral 120 600 Output: Urine 850 1200 Other: Voiding Method Indwelling Catheter Indwelling Catheter # Voids 1 - Exam Abdomen: Soft, nontender, nondistended - Labs CBC & Chem 7: 06/02/18 08:47 06/02/18 08:47 Labs: Abnormal Lab Results - Last 24 Hours (Table) 06/02/18 06/02/18 06/02/18 Range/Units 11:44 17:08 19:59 POC Glucose (mg/dL) 145 H 123 H 136 H (75-99) mg/dL 06/03/18 Range/Units 07:07 POC Glucose (mg/dL) 135 H (75-99) mg/dL Microbiology - Last 24 Hours (Table) 05/30/18 00:52 Blood Culture - Preliminary Blood No Growth after 96 hours 05/27/18 19:00 Blood Culture - Final Blood No Growth after 144 hours Assessment and Plan (1) Abdominal pain Narrative/Plan: Continue diet as ordered. Repeat CBC given the leukocytosis. Will follow. Current Visit: Yes Status: Acute Code(s): R10.9 - UNSPECIFIED ABDOMINAL PAIN SNOMED Code(s): 18099323
[2018-06-03 11:48] LABS: Glucose,Whole Blood 146 mg/dL (75-99)
[2018-06-03 12:43] LABS: Anisocytosis Slight; Basophils % (A) 0 %; Eosinophils # (A) 0.3 k/uL (0-0.7); Eosinophils % (A) 1 %; HCT 30.7 % (34.0-46.0); HGB 8.5 gm/dL (11.4-16.0); Hypochromasia Marked; Lymphocytes # (A) 0.8 k/uL (1.0-4.8); Lymphocytes % (A) 4 %; MCH 20.9 pg (25.0-35.0); MCHC 27.7 g/dL (31.0-37.0); MCV 75.4 fL (80.0-100.0); Mean Platelet Volume 8.7; Microcytosis Moderate; Monocytes # (A) 1.5 k/uL (0-1.0); Monocytes % (A) 7 %; Neutrophils # (A) 18.4 k/uL (1.3-7.7); Neutrophils % (A) 86 %; Platelet Count 584 k/uL (150-450); Poikilocytosis Moderate; RBC 4.08 m/uL (3.80-5.40); RDW 18.2 % (11.5-15.5); WBC 21.4 k/uL (3.8-10.6)
--- NOTE | 2018-06-03 14:18 | P.PN ---
Subjective Progress Note Date: 06/03/18 Principal diagnosis: Acute on chronic hypoxic respiratory failure secondary to acute on chronic systolic congestive heart failure, COPD exacerbation, sepsis This is a 62-year-old female familiar to my service, known to have history of severe end-stage COPD, chronic hypoxic respiratory failure secondary to COPD, patient is maintained on oxygen and nocturnal BiPAP, brought in last night by EMS complaining of increased shortness of breath, and increased somnolence. This was noted by her grandson was visiting her yesterday at the longterm. She was recently discharged out of [facility] about 5 days ago , and she went to [facility]. According to the patient she was compliant with her bronchodilators, oxygen, BiPAP, but the patient is known to have history of multiple medical problems including hemorrhagic CVA, chronic congestive heart failure, previous brain injury, and she had expressive aphasia for quite some time related to her CVA. Upon presentation to the ER, patient was noted to be dyspneic, and she was having some vague chest discomfort. The patient herself is an extremely poor historian, and most of the information was obtained from her grandson who was standing at bedside. CT of the chest in the ER showed no evidence of pulmonary embolism, prominence of the large central pulmonary arteries, increased pleural effusion bilaterally. ABG showed a pO2 of 51 pCO2 of 38 pH of 7.55. She was noted to have a bit of leukocytosis with WBC count of 18.3 hemoglobin of 8. A relatively normal basic metabolic profile was noted. The patient was placed on oxygen, bronchodilators in the form of DuoNeb, she was given Lasix 40 mg IV push every 12 hours, and she was also placed on methylprednisolone 40 mg IV push every 6 hours. Cardiac meds were resumed including beta blockers, IV fluid was cut down to KVO. 05/30/2018 patient seen in follow-up in the intensive care unit, yesterday in the evening patient became hypotensive, quite tachycardic, and febrile with a temp of 101.5 axillary. Her transfer out of the unit was canceled, and stat chest x-ray, abdominal x-ray, blood cultures, urine cultures and antibiotics were ordered. She became oliguric, patient's Lasix was put on hold, see the IV fluid bolus of 500 mL of normal saline. Not require vasopressor support, Lasix remains on hold this morning, chest x-ray was reviewed by Dr. Jiménez, and shows old infiltrate in the right lower lobe which appears to be clearing compared to previous exams, no signs of heart failure no other acute findings. Abdominal x- ray was reviewed, showed nonacute abdomen, no sign of intestinal obstruction or pneumoperitoneum. This morning patient is seen awake and alert, currently on 5 L per nasal cannula her pulse ox is 98%, running low-grade fevers of 99.2 orally, blood pressures 103/59, non-tachycardic. Today's lab work was reviewed , and there is due to elevation of white blood cell count, up to 37.5, hemoglobin is 8.8, electrolytes were normal limits, BUN is 28 and creatinine 0.57. She denies any worsening dyspnea, lung sounds reveal some diffuse crackles no wheezing or rhonchi. Her abdomen is diffusely tender, particularly in the right upper quadrant area. We'll obtain CT of the abdomen, we will keep the patient nothing by mouth for now, she will remain in the intensive care unit for further monitoring. Will continue current antibiotic coverage, currently she is on azithromycin and Rocephin. On 05/31/2018 patient seen in follow-up in the intensive care unit, she is resting in bed, to have a some diffuse abdominal pain, abdomen is soft, bowel sounds are hypoactive, CT of the abdomen showed a possibility of developing small bowel obstruction, surgery has been consulted, HIDA scan was done, and showed a normal exam, normal gallbladder ejection fraction, no focal liver defect. Low-grade fevers this morning, 99.1 axillary, patient is on 5 L per nasal cannula, she denies any difficulty breathing. Today's labs have been reviewed, leukocytosis is trending down, WBC 27.2, hemoglobin 7.1, BMP has not resulted yet at this time. Blood and urine cultures are negative, patient is not producing any sputum. IV fluids is 0.9 normal saline at a rate of 50 ML per hour. No other drips. She is nonoliguric, she remains nothing by mouth. On 06/01/2018 patient seen again in follow-up in the intensive care unit, she is awake and alert, abdomen is less tender today, is soft, bowel sounds are hypoactive, follow-up CT of the abdomen and pelvis completed yesterday, and showed complete bowel obstruction, possible developing colitis from hepatic flexure through mid transverse colon, as well as infectious or inflammatory etiology. Surgeries on the case, patient is tolerating full liquid diet, is on antibiotics. She denies any worsening shortness of breath, today's chest x-ray shows pulmonary venous congestion or pleural effusions. We'll resume patient's oral Lasix, as oxygenation patient is maintaining good oxygenation on 3 L per nasal cannula, pulse ox is 95%, no fever or chills, lung sounds are diminished. She is remain negative. She did wear her BiPAP last night for about 2 hours. No acute distress today. She is nonoliguric, producing urine in order of 50-100 ML per hour. IV fluid for gentle hydration at 50 ML per hour. His labs have been reviewed, shows WBC of 20.4, hemoglobin is 7.0, sodium is 134, a breast electrolytes and renal profile are unremarkable. On 06/02/2018 patient seen in follow-up in the intensive care unit, she is awake and alert, denies any acute distress, denies any difficulty breathing, abdomen is soft, minimally tender, patient is tolerating full liquid diet, no vomiting, no nausea, patient still has not had good bowel movement, she was given a suppository couple days ago, with minimal results with heart stool. Gen. surgery is following, patient is afebrile, vital signs are stable. 3 L nasal cannula patient's pulse ox is 92-94%, single low-grade fever this morning with 99.1F, lung sounds are diminished, no rhonchi or wheezes noted on today's exam, no new chest x-rays, labs were reviewed, WBC continues to trend down, today it's 18.6, hemoglobin 7.8, sodium is 136, potassium is 3.5, chloride is 96 , CO2 is 31, BUN is 12 and creatinine 0.45. No acute events overnight, patient is nonoliguric. Patient is seen today 06/03/2018 in follow-up on the regular medical floor. She is awake and alert in no acute distress. She is maintaining O2 saturations in the 90s on 3 L/m per nasal cannula. She's afebrile. Hemodynamically stable. Blood and urine cultures reveal no growth. White count 21.4. Hemoglobin 8.5. Objective - Vital Signs Vital signs: Vital Signs Temp 97.7 F 06/03/18 05:00 Pulse 84 06/03/18 11:52 Resp 20 06/03/18 05:00 BP 162/71 06/03/18 05:00 Pulse Ox 92 L 06/03/18 08:01 Intake & Output 06/02/18 06/03/18 06/03/18 18:59 06:59 18:59 Intake Total 770 1100 Output Total 850 1200 Balance -80 -100 Intake: IV 250 400 Sodium Chloride 0.9% 1, 250 400 000 ml @ 50 mls/hr IV . Q20H AGUILA Rx#:[id number] Intake, IV Titration 400 100 Amount Magnesium Sulfate-D5w Pmx 300 1 gm In Dextrose/Water 1 100ml.bag @ 100 mls/hr IVPB Q1H AGUILA Rx#: [id number] Potassium Chloride 10 meq 100 In Water For Injection 1 100ml.bag @ 100 mls/hr IVPB Q1HR AGUILA Rx#: [id number] cefTRIAXone 1,000 mg In 100 Sodium Chloride 0.9% 50 ml @ 100 mls/hr IVPB Q24H AGUILA Rx#:[id number] Oral 120 600 Output: Urine 850 1200 Other: Voiding Method Indwelling Catheter Indwelling Catheter Indwelling Catheter # Voids 1 - Exam - Exam General appearance: Revealed a 62-year-old female on the regular medical floor. On 3 L/m per nasal cannula. Eye exam: PERRLA, EOMI, no icterus. ENT exam: Moist mucous membranes, normal nasal and oral mucosa, neck is supple, no thyromegaly, no carotid bruits. Respiratory exam: Extremely diminished breath sound bilaterally, some diffuse crackles Cardiovascular Exam: Normal S1 and S2, 2/6 systolic murmur thought the precordium. No rubs. GI/Abdominal exam: Abdomen is minimally tender, but soft, no nausea or vomiting , active bowel sounds are present Neurological exam: Awake, oriented 1, has some dysphasia.) Psychiatric exam: Normal mood affect, however patient may have poor insight. Skin exam: Good skin turgor, no cyanosis, no rashes. - Labs CBC & Chem 7: 06/03/18 07:15 06/02/18 08:47 Labs: Abnormal Lab Results - Last 24 Hours (Table) 06/02/18 06/02/18 06/03/18 Range/Units 17:08 19:59 07:07 WBC (3.8-10.6) k/uL Hgb (11.4-16.0) gm/dL Hct (34.0-46.0) % MCV (80.0-100.0) fL MCH (25.0-35.0) pg MCHC (31.0-37.0) g/dL RDW (11.5-15.5) % Plt Count (150-450) k/uL Neutrophils # (1.3-7.7) k/uL Lymphocytes # (1.0-4.8) k/uL Monocytes # (0-1.0) k/uL POC Glucose (mg/dL) 123 H 136 H 135 H (75-99) mg/dL 06/03/18 06/03/18 Range/Units 07:15 11:47 WBC 21.4 H (3.8-10.6) k/uL Hgb 8.5 L (11.4-16.0) gm/dL Hct 30.7 L (34.0-46.0) % MCV 75.4 L (80.0-100.0) fL MCH 20.9 L (25.0-35.0) pg MCHC 27.7 L (31.0-37.0) g/dL RDW 18.2 H (11.5-15.5) % Plt Count 584 H (150-450) k/uL Neutrophils # 18.4 H (1.3-7.7) k/uL Lymphocytes # 0.8 L (1.0-4.8) k/uL Monocytes # 1.5 H (0-1.0) k/uL POC Glucose (mg/dL) 146 H (75-99) mg/dL Microbiology - Last 24 Hours (Table) 05/30/18 00:52 Blood Culture - Preliminary Blood No Growth after 96 hours 05/27/18 19:00 Blood Culture - Final Blood No Growth after 144 hours Assessment and Plan Assessment: Impression: 1. Acute septic shock, and the source of sepsis is under investigation. Patient became hypotensive, tachycardic and febrile and due to elevation of white blood cell count on 05/30/2018. Cultures are collected and are pending at this time patient is covered with empiric antibiotics. On 06/01/2018 white count is trending down, no fever or chills, cultures are negative thus far. Follow-up CAT scan of abdomen and pelvis showed possible colitis, possibly inflammatory or infectious, surgeries on the case, patient is on antibiotics, abdominal tenderness is improving, patient is tolerating full liquid diet. On 06/02/2018 patient seen in follow-up in the intensive care unit, awake and alert, in no acute distress, abdomen is minimally tender, soft, no nausea or vomiting, white blood cell count continues to trend down, no fever or chills, cultures remain negative, patient denies any difficulty breathing, she is tolerating full liquid diet, still has not had significant bowel movement, had a suppository couple days ago with small results of hard stool. Vitals are stable. No acute events overnight 2. Acute abdominal pain, abdominal x-ray was negative for pneumoperitoneum or obstructive pattern, we'll obtain CT of the abdomen 3 acute on chronic hypoxic respiratory failure secondary to acute on chronic systolic congestive heart failure, and acute on chronic COPD exacerbation. 4 CHF with impaired LV dysfunction secondary pulmonary hypertension, with an ejection fraction of 35-40% with secondary pulmonary hypertension 5 coronary artery disease with previous PCI/coronary intervention and stenting and a previous coronary artery bypass surgery 6 peripheral vascular disease, involving mostly lower extremities. 7 hypertension, benign essential. 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 Plan: The patient was seen and evaluated by Dr. Jiménez. She is currently stable from the pulmonary standpoint. We'll continue with her current treatment plan. Will see the patient on as-needed basis. I, the cosigning physician, performed a history & physical examination of the patient. Lungs sounds with few scattered rhonchi. Maintaining good O2 saturations in the 90s on 3 L/m per nasal cannula. I discussed the assessment and plan of care with my nurse practitioner, Katarina Levin. I attest to the above note as dictated by her.
[2018-06-03] MEDS: metroNIDAZOLE-NS PMX 500 MG in SALINE 1 100ML.BAG IVPB SCH (16:21)
[2018-06-03 17:19] LABS: Glucose,Whole Blood 119 mg/dL (75-99)
[2018-06-03 20:50] LABS: Glucose,Whole Blood 132 mg/dL (75-99)
[2018-06-03] MEDS: ATORVASTATIN 80 MG TAB PO SCH (21:27)
[2018-06-04] MEDS: metroNIDAZOLE-NS PMX 500 MG in SALINE 1 100ML.BAG IVPB SCH ×4 (00:32→23:52)
[2018-06-04] MEDS: IPRATROPIUM-ALBUTEROL 3 ML NEB INHALATION SCH ×4 (07:17→19:58)
[2018-06-04] MEDS: SYMBICORT 160-4.5 MCG INHALER INHALATION SCH ×2 (07:17→19:58)
[2018-06-04 07:23] LABS: Glucose,Whole Blood 104 mg/dL (75-99)
[2018-06-04] MEDS: INSULIN ASPART 100 UNIT/ML 1 ML 10 ML VIAL SQ SCH ×4 (07:40→21:20)
[2018-06-04 07:53] LABS: Anisocytosis Slight; Basophils % (A) 0 %; Eosinophils # (A) 0.3 k/uL (0-0.7); Eosinophils % (A) 2 %; HCT 28.9 % (34.0-46.0); HGB 8.4 gm/dL (11.4-16.0); Hypochromasia Marked; Lymphocytes # (A) 1.5 k/uL (1.0-4.8); Lymphocytes % (A) 9 %; MCH 21.1 pg (25.0-35.0); MCHC 29.2 g/dL (31.0-37.0); MCV 72.2 fL (80.0-100.0); Mean Platelet Volume 6.3; Microcytosis Moderate; Monocytes # (A) 1.3 k/uL (0-1.0); Monocytes % (A) 7 %; Neutrophils # (A) 13.9 k/uL (1.3-7.7); Neutrophils % (A) 80 %; Platelet Count 659 k/uL (150-450); Poikilocytosis Moderate; RDW 18.3 % (11.5-15.5); WBC 17.4 k/uL (3.8-10.6)
[2018-06-04 08:04] LABS: Anion Gap 9 mmol/L; Blood Urea Nitrogen 17 mg/dL (7-17); Calcium 8.8 mg/dL (8.4-10.2); Carbon Dioxide 32 mmol/L (22-30); Chloride 98 mmol/L (98-107); Glucose 96 mg/dL (74-99); Potassium 3.4 mmol/L (3.5-5.1); Sodium 139 mmol/L (137-145)
[2018-06-04] MEDS: DONEPEZIL 5 MG TAB PO SCH (09:42)
[2018-06-04] MEDS: CYANOCOBALAMIN 500 MCG TAB PO SCH (09:42)
[2018-06-04] MEDS: ASPIRIN 81 MG PO SCH (09:42)
[2018-06-04] MEDS: FUROSEMIDE 40 MG TAB PO SCH ×2 (09:43→16:14)
[2018-06-04] MEDS: LACOSAMIDE 50 MG TABLET PO SCH ×2 (09:43→21:20)
[2018-06-04] MEDS: FAMOTIDINE 20 MG TAB PO SCH (09:43)
[2018-06-04] MEDS: METOPROLOL SUCCINATE (ER) 50 MG TAB.ER.24H PO SCH (09:44)
[2018-06-04] MEDS: PARoxetine 20 MG TAB PO SCH (09:46)
[2018-06-04] MEDS: PRIMIDONE 50 MG TAB PO SCH ×3 (09:46→21:20)
[2018-06-04] MEDS: SPIRONOLACTONE 25 MG TAB PO SCH (09:47)
[2018-06-04 11:09] LABS: Glucose,Whole Blood 194 mg/dL (75-99)
--- NOTE | 2018-06-04 12:43 | P.PN ---
Subjective Progress Note Date: 06/04/18 Principal diagnosis: Abdominal pain Patient has no complaints currently. Tolerating diet. She did have a bowel movement last night. White blood cell count 17.4. She is afebrile. Objective - Vital Signs Vital signs: Vital Signs Temp 98.0 F 06/04/18 05:00 Pulse 80 06/04/18 12:03 Resp 20 06/04/18 05:00 BP 118/70 06/04/18 05:00 Pulse Ox 99 06/04/18 05:00 Intake & Output 06/03/18 06/04/18 06/04/18 18:59 06:59 18:59 Intake Total 950 Output Total 2500 100 Balance -2500 950 -100 Intake: IV 250 Sodium Chloride 0.9% 1, 250 000 ml @ 50 mls/hr IV . Q20H AGUILA Rx#:[id number] Oral 700 Output: Urine 2500 100 Uretheral (Vitale) 100 Other: Voiding Method Indwelling Catheter Indwelling Catheter Indwelling Catheter # Voids 2 # Bowel Movements 0 0 - Exam Abdomen: Soft, nondistended, mild upper abdominal tenderness - Labs CBC & Chem 7: 06/04/18 07:29 06/04/18 07:29 Labs: Abnormal Lab Results - Last 24 Hours (Table) 06/03/18 06/03/18 06/03/18 Range/Units 07:15 17:17 20:30 WBC 21.4 H (3.8-10.6) k/uL Hgb 8.5 L (11.4-16.0) gm/dL Hct 30.7 L (34.0-46.0) % MCV 75.4 L (80.0-100.0) fL MCH 20.9 L (25.0-35.0) pg MCHC 27.7 L (31.0-37.0) g/dL RDW 18.2 H (11.5-15.5) % Plt Count 584 H (150-450) k/uL Neutrophils # 18.4 H (1.3-7.7) k/uL Lymphocytes # 0.8 L (1.0-4.8) k/uL Monocytes # 1.5 H (0-1.0) k/uL Potassium (3.5-5.1) mmol/L Carbon Dioxide (22-30) mmol/L POC Glucose (mg/dL) 119 H 132 H (75-99) mg/dL 06/04/18 06/04/18 06/04/18 Range/Units 07:22 07:29 07:29 WBC 17.4 H (3.8-10.6) k/uL Hgb 8.4 L (11.4-16.0) gm/dL Hct 28.9 L (34.0-46.0) % MCV 72.2 L (80.0-100.0) fL MCH 21.1 L (25.0-35.0) pg MCHC 29.2 L (31.0-37.0) g/dL RDW 18.3 H (11.5-15.5) % Plt Count 659 H (150-450) k/uL Neutrophils # 13.9 H (1.3-7.7) k/uL Lymphocytes # (1.0-4.8) k/uL Monocytes # 1.3 H (0-1.0) k/uL Potassium 3.4 L (3.5-5.1) mmol/L Carbon Dioxide 32 H (22-30) mmol/L POC Glucose (mg/dL) 104 H (75-99) mg/dL 06/04/18 Range/Units 11:07 WBC (3.8-10.6) k/uL Hgb (11.4-16.0) gm/dL Hct (34.0-46.0) % MCV (80.0-100.0) fL MCH (25.0-35.0) pg MCHC (31.0-37.0) g/dL RDW (11.5-15.5) % Plt Count (150-450) k/uL Neutrophils # (1.3-7.7) k/uL Lymphocytes # (1.0-4.8) k/uL Monocytes # (0-1.0) k/uL Potassium (3.5-5.1) mmol/L Carbon Dioxide (22-30) mmol/L POC Glucose (mg/dL) 194 H (75-99) mg/dL Microbiology - Last 24 Hours (Table) 05/30/18 00:52 Blood Culture - Preliminary Blood No Growth after 120 hours Assessment and Plan (1) Abdominal pain Narrative/Plan: Continue diet as ordered. Monitor leukocytosis. Continue antibiotics. Current Visit: Yes Status: Acute Code(s): R10.9 - UNSPECIFIED ABDOMINAL PAIN SNOMED Code(s): 58519118
[2018-06-04] MEDS: SODIUM CHLORIDE 0.9% 1,000 ML IV SCH (16:06)
[2018-06-04 17:50] LABS: Glucose,Whole Blood 117 mg/dL (75-99)
[2018-06-04 21:20] LABS: Glucose,Whole Blood 159 mg/dL (75-99)
[2018-06-04] MEDS: ATORVASTATIN 80 MG TAB PO SCH (21:20)
[2018-06-04] MEDS: ALPRAZolam 0.25 MG TAB PO PRN (21:20)
[2018-06-05 07:11] LABS: Glucose,Whole Blood 120 mg/dL (75-99)
[2018-06-05] MEDS: INSULIN ASPART 100 UNIT/ML 1 ML 10 ML VIAL SQ SCH ×5 (07:15→20:57)
[2018-06-05] MEDS: IPRATROPIUM-ALBUTEROL 3 ML NEB INHALATION SCH ×4 (07:38→19:38)
[2018-06-05] MEDS: SYMBICORT 160-4.5 MCG INHALER INHALATION SCH ×2 (07:38→19:38)
[2018-06-05 07:47] LABS: Anisocytosis Slight; Basophils % (A) 0 %; Eosinophils # (A) 0.2 k/uL (0-0.7); Eosinophils % (A) 2 %; HGB 7.1 gm/dL (11.4-16.0); Hypochromasia Marked; Lymphocytes # (A) 1.2 k/uL (1.0-4.8); Lymphocytes % (A) 8 %; MCHC 28.3 g/dL (31.0-37.0); Mean Platelet Volume 6.9; Microcytosis Moderate; Monocytes # (A) 0.8 k/uL (0-1.0); Monocytes % (A) 6 %; Neutrophils % (A) 82 %; Platelet Count 578 k/uL (150-450); Poikilocytosis Slight; RBC 3.38 m/uL (3.80-5.40); RDW 18.7 % (11.5-15.5); WBC 14.6 k/uL (3.8-10.6)
[2018-06-05 08:21] LABS: Anion Gap 8 mmol/L; Blood Urea Nitrogen 18 mg/dL (7-17); Calcium 8.7 mg/dL (8.4-10.2); Carbon Dioxide 30 mmol/L (22-30); Chloride 102 mmol/L (98-107); Glucose 98 mg/dL (74-99); Potassium 3.1 mmol/L (3.5-5.1); Sodium 140 mmol/L (137-145)
[2018-06-05] MEDS: metroNIDAZOLE-NS PMX 500 MG in SALINE 1 100ML.BAG IVPB SCH ×2 (08:46→15:05)
[2018-06-05] MEDS: ASPIRIN 81 MG PO SCH (08:46)
[2018-06-05] MEDS: FAMOTIDINE 20 MG TAB PO SCH (08:47)
[2018-06-05] MEDS: LACOSAMIDE 50 MG TABLET PO SCH ×2 (08:47→20:54)
[2018-06-05] MEDS: FUROSEMIDE 40 MG TAB PO SCH ×2 (08:47→15:05)
[2018-06-05] MEDS: METOPROLOL SUCCINATE (ER) 50 MG TAB.ER.24H PO SCH (08:52)
[2018-06-05] MEDS: CYANOCOBALAMIN 500 MCG TAB PO SCH (08:52)
[2018-06-05] MEDS: PARoxetine 20 MG TAB PO SCH (08:52)
[2018-06-05] MEDS: SPIRONOLACTONE 25 MG TAB PO SCH (08:53)
[2018-06-05] MEDS: PRIMIDONE 50 MG TAB PO SCH ×3 (08:53→21:44)
[2018-06-05] MEDS: DONEPEZIL 5 MG TAB PO SCH (08:54)
[2018-06-05] MEDS: POTASSIUM CHLORIDE ER 20 MEQ TAB.ER PO SCH ×3 (09:09→12:12)
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
[2018-06-05] MEDS ORDERED: Magnesium Replacement Protocol 1 EACH MISC MISCELLANE PRN (11:21)
--- NOTE | 2018-06-05 11:38 | P.PN ---
Subjective Progress Note Date: 06/05/18 Principal diagnosis: Abdominal pain Patient doing about the same. She at most of her breakfast today. Mild abdominal discomforts. Small bowel movement. White blood cell count improved at 14.6. Potassium low at 3.1. Objective - Vital Signs Vital signs: Vital Signs Temp 98 F 06/05/18 06:32 Pulse 85 06/05/18 08:00 Resp 22 06/05/18 08:00 BP 106/70 06/05/18 06:32 Pulse Ox 93 L 06/05/18 06:32 Intake & Output 06/04/18 06/05/18 06/05/18 18:59 06:59 18:59 Intake Total 1450 Output Total 100 Balance -100 1450 Weight 43.7 kg Intake: IV 450 Sodium Chloride 0.9% 1, 450 000 ml @ 50 mls/hr IV . Q20H [facility] Rx#:[id number] Intake, IV Titration 150 Amount cefTRIAXone 1,000 mg In 50 Sodium Chloride 0.9% 50 ml @ 100 mls/hr IVPB Q24H [facility] Rx#:[id number] metroNIDAZOLE-NS PMX 500 100 mg In Saline 1 100ml.bag @ 100 mls/hr IVPB Q8HR [facility] Rx#:[id number] Oral 850 Output: Urine 100 Uretheral (Vitale) 100 Other: Voiding Method Indwelling Catheter Diaper Diaper Incontinent Incontinent # Voids 1 1 # Bowel Movements 0 - Exam Abdomen: Soft, nondistended, mild diffuse tenderness - Labs CBC & Chem 7: 06/05/18 07:27 06/05/18 07:27 Labs: Abnormal Lab Results - Last 24 Hours (Table) 06/04/18 06/04/18 06/05/18 Range/Units 17:41 21:19 07:08 WBC (3.8-10.6) k/uL RBC (3.80-5.40) m/uL Hgb (11.4-16.0) gm/dL Hct (34.0-46.0) % MCV (80.0-100.0) fL MCH (25.0-35.0) pg MCHC (31.0-37.0) g/dL RDW (11.5-15.5) % Plt Count (150-450) k/uL Neutrophils # (1.3-7.7) k/uL Potassium (3.5-5.1) mmol/L BUN (7-17) mg/dL POC Glucose (mg/dL) 117 H 159 H 120 H (75-99) mg/dL 06/05/18 06/05/18 Range/Units 07:27 07:27 WBC 14.6 H (3.8-10.6) k/uL RBC 3.38 L (3.80-5.40) m/uL Hgb 7.1 L (11.4-16.0) gm/dL Hct 25.0 L (34.0-46.0) % MCV 74.0 L (80.0-100.0) fL MCH 21.0 L (25.0-35.0) pg MCHC 28.3 L (31.0-37.0) g/dL RDW 18.7 H (11.5-15.5) % Plt Count 578 H (150-450) k/uL Neutrophils # 12.0 H (1.3-7.7) k/uL Potassium 3.1 L (3.5-5.1) mmol/L BUN 18 H (7-17) mg/dL POC Glucose (mg/dL) (75-99) mg/dL Microbiology - Last 24 Hours (Table) 05/30/18 00:52 Blood Culture - Final Blood No Growth after 144 hours Assessment and Plan (1) Abdominal pain Narrative/Plan: Continue diet as tolerated. Continue antibiotic. Monitor white blood cell count. supplement potassium. Current Visit: Yes Status: Acute Code(s): R10.9 - UNSPECIFIED ABDOMINAL PAIN SNOMED Code(s): 01014954
[2018-06-05 12:09] LABS: Glucose,Whole Blood 126 mg/dL (75-99)
[2018-06-05] MEDS: MAGNESIUM SULFATE-D5W PMX 1 GM in DEXTROSE/WATER 1 100ML.BAG IVPB SCH ×2 (12:09→13:03)
[2018-06-05] MEDS: PANTOPRAZOLE 40 MG TABLET PO SCH (12:12)
[2018-06-05 17:17] LABS: Glucose,Whole Blood 158 mg/dL (75-99)
[2018-06-05 20:52] LABS: Glucose,Whole Blood 132 mg/dL (75-99)
[2018-06-05] MEDS: ATORVASTATIN 80 MG TAB PO SCH (20:54)
[2018-06-05 21:22] LABS: Glucose,Whole Blood 128 mg/dL (75-99)
[2018-06-06] MEDS: metroNIDAZOLE-NS PMX 500 MG in SALINE 1 100ML.BAG IVPB SCH ×2 (00:13→10:04)
[2018-06-06] MEDS: SYMBICORT 160-4.5 MCG INHALER INHALATION SCH ×2 (07:29→19:55)
[2018-06-06] MEDS: IPRATROPIUM-ALBUTEROL 3 ML NEB INHALATION SCH ×4 (07:29→19:55)
[2018-06-06 07:35] LABS: Glucose,Whole Blood 109 mg/dL (75-99)
[2018-06-06 08:15] LABS: Anisocytosis Slight; Basophils % (A) 0 %; Eosinophils # (A) 0.3 k/uL (0-0.7); Eosinophils % (A) 2 %; HCT 25.9 % (34.0-46.0); HGB 7.3 gm/dL (11.4-16.0); Hypochromasia Marked; Lymphocytes # (A) 1.3 k/uL (1.0-4.8); Lymphocytes % (A) 10 %; MCHC 28.2 g/dL (31.0-37.0); MCV 74.5 fL (80.0-100.0); Mean Platelet Volume 6.7; Microcytosis Moderate; Monocytes # (A) 0.7 k/uL (0-1.0); Monocytes % (A) 5 %; Neutrophils # (A) 10.3 k/uL (1.3-7.7); Neutrophils % (A) 80 %; Platelet Count 563 k/uL (150-450); Poikilocytosis Slight; RBC 3.47 m/uL (3.80-5.40); RDW 18.6 % (11.5-15.5); WBC 12.8 k/uL (3.8-10.6)
[2018-06-06 08:27] LABS: Anion Gap 7 mmol/L; Blood Urea Nitrogen 15 mg/dL (7-17); Calcium 9.1 mg/dL (8.4-10.2); Carbon Dioxide 31 mmol/L (22-30); Chloride 103 mmol/L (98-107); Glucose 99 mg/dL (74-99); Magnesium 1.8 mg/dL (1.6-2.3); Potassium 3.6 mmol/L (3.5-5.1); Sodium 141 mmol/L (137-145)
[2018-06-06] MEDS: LACOSAMIDE 50 MG TABLET PO SCH ×2 (09:58→21:26)
[2018-06-06] MEDS: FAMOTIDINE 20 MG TAB PO SCH (09:59)
[2018-06-06] MEDS: ASPIRIN 81 MG PO SCH (09:59)
[2018-06-06] MEDS: CYANOCOBALAMIN 500 MCG TAB PO SCH (09:59)
[2018-06-06] MEDS: FUROSEMIDE 40 MG TAB PO SCH ×2 (10:00→18:01)
[2018-06-06] MEDS: SPIRONOLACTONE 25 MG TAB PO SCH (10:00)
[2018-06-06] MEDS: PRIMIDONE 50 MG TAB PO SCH ×2 (10:01→18:01)
[2018-06-06] MEDS: DONEPEZIL 5 MG TAB PO SCH (10:02)
[2018-06-06] MEDS: METOPROLOL SUCCINATE (ER) 50 MG TAB.ER.24H PO SCH (10:02)
[2018-06-06] MEDS: PARoxetine 20 MG TAB PO SCH (10:02)
[2018-06-06] MEDS: INSULIN ASPART 100 UNIT/ML 1 ML 10 ML VIAL SQ SCH ×4 (10:04→21:26)
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
[2018-06-06 12:17] LABS: Glucose,Whole Blood 149 mg/dL (75-99)
[2018-06-06] MEDS: PANTOPRAZOLE 40 MG TABLET PO SCH (14:13)
--- NOTE | 2018-06-06 14:22 | P.PN ---
Subjective Progress Note Date: 06/06/18 Principal diagnosis: Abdominal pain Patient doing better today. She is eating more her diet. White blood cell count almost normal at this point. Minimal pain she states. Objective - Vital Signs Vital signs: Vital Signs Temp 98.3 F 06/06/18 07:35 Pulse 70 06/06/18 12:02 Resp 16 06/06/18 07:35 BP 111/79 06/06/18 07:35 Pulse Ox 100 06/06/18 07:35 Intake & Output 06/05/18 06/06/18 06/06/18 18:59 06:59 18:59 Intake Total 320 Balance 320 Weight 43.7 kg Intake: IV 220 Sodium Chloride 0.9% 1, 220 000 ml @ 50 mls/hr IV . Q20H [facility] Rx#:[id number] Intake, IV Titration 100 Amount metroNIDAZOLE-NS PMX 500 100 mg In Saline 1 100ml.bag @ 100 mls/hr IVPB Q8HR [facility] Rx#:[id number] Other: Voiding Method Diaper Diaper Incontinent Incontinent # Voids 2 2 - Exam Abdomen: Soft, nondistended, nontender - Labs CBC & Chem 7: 06/06/18 08:05 06/06/18 08:05 Labs: Abnormal Lab Results - Last 24 Hours (Table) 06/05/18 06/05/18 06/05/18 Range/Units 17:15 20:51 21:04 WBC (3.8-10.6) k/uL RBC (3.80-5.40) m/uL Hgb (11.4-16.0) gm/dL Hct (34.0-46.0) % MCV (80.0-100.0) fL MCH (25.0-35.0) pg MCHC (31.0-37.0) g/dL RDW (11.5-15.5) % Plt Count (150-450) k/uL Neutrophils # (1.3-7.7) k/uL Carbon Dioxide (22-30) mmol/L Creatinine (0.52-1.04) mg/dL POC Glucose (mg/dL) 158 H 132 H 128 H (75-99) mg/dL 06/06/18 06/06/18 06/06/18 Range/Units 07:33 08:05 08:05 WBC 12.8 H (3.8-10.6) k/uL RBC 3.47 L (3.80-5.40) m/uL Hgb 7.3 L (11.4-16.0) gm/dL Hct 25.9 L (34.0-46.0) % MCV 74.5 L (80.0-100.0) fL MCH 21.0 L (25.0-35.0) pg MCHC 28.2 L (31.0-37.0) g/dL RDW 18.6 H (11.5-15.5) % Plt Count 563 H (150-450) k/uL Neutrophils # 10.3 H (1.3-7.7) k/uL Carbon Dioxide 31 H (22-30) mmol/L Creatinine 0.50 L (0.52-1.04) mg/dL POC Glucose (mg/dL) 109 H (75-99) mg/dL 06/06/ Range/Units 12:16 WBC (3.8-10.6) k/uL RBC (3.80-5.40) m/uL Hgb (11.4-16.0) gm/dL Hct (34.0-46.0) % MCV (80.0-100.0) fL MCH (25.0-35.0) pg MCHC (31.0-37.0) g/dL RDW (11.5-15.5) % Plt Count (150-450) k/uL Neutrophils # (1.3-7.7) k/uL Carbon Dioxide (22-30) mmol/L Creatinine (0.52-1.04) mg/dL POC Glucose (mg/dL) 149 H (75-99) mg/dL Assessment and Plan (1) Abdominal pain Narrative/Plan: Continue diet as tolerated. Continue increasing activity. We'll sign off at this point. Please follow-up with Dr. Reyna post discharge. Current Visit: Yes Status: Acute Code(s): R10.9 - UNSPECIFIED ABDOMINAL PAIN SNOMED Code(s): 20135873
[2018-06-06 17:31] LABS: Glucose,Whole Blood 104 mg/dL (75-99)
[2018-06-06] MEDS: metroNIDAZOLE 500 MG TAB PO SCH (18:00)
[2018-06-06 20:17] LABS: Glucose,Whole Blood 231 mg/dL (75-99)
[2018-06-06] MEDS: ATORVASTATIN 80 MG TAB PO SCH (21:26)
[2018-06-07] MEDS: metroNIDAZOLE 500 MG TAB PO SCH ×3 (00:09→17:27)
[2018-06-07] MEDS: PRIMIDONE 50 MG TAB PO SCH ×4 (00:09→21:15)
[2018-06-07 07:11] LABS: Glucose,Whole Blood 134 mg/dL (75-99)
[2018-06-07] MEDS: SYMBICORT 160-4.5 MCG INHALER INHALATION SCH ×2 (07:48→20:07)
[2018-06-07] MEDS: IPRATROPIUM-ALBUTEROL 3 ML NEB INHALATION SCH ×4 (07:48→20:07)
[2018-06-07] MEDS: LACOSAMIDE 50 MG TABLET PO SCH ×2 (08:49→21:15)
[2018-06-07] MEDS: FUROSEMIDE 40 MG TAB PO SCH ×2 (08:49→17:27)
[2018-06-07] MEDS: PARoxetine 20 MG TAB PO SCH (08:49)
[2018-06-07] MEDS: CYANOCOBALAMIN 500 MCG TAB PO SCH (08:49)
[2018-06-07] MEDS: FAMOTIDINE 20 MG TAB PO SCH (08:50)
[2018-06-07] MEDS: DONEPEZIL 5 MG TAB PO SCH (08:50)
[2018-06-07] MEDS: SPIRONOLACTONE 25 MG TAB PO SCH (08:50)
[2018-06-07] MEDS: ASPIRIN 81 MG PO SCH (08:50)
[2018-06-07] MEDS: INSULIN ASPART 100 UNIT/ML 1 ML 10 ML VIAL SQ SCH ×4 (08:51→21:15)
[2018-06-07] MEDS: METOPROLOL SUCCINATE (ER) 50 MG TAB.ER.24H PO SCH (08:54)
[2018-06-07] MEDS: ALPRAZolam 0.25 MG TAB PO PRN (11:16)
[2018-06-07 12:15] LABS: Glucose,Whole Blood 121 mg/dL (75-99)
[2018-06-07] MEDS: PANTOPRAZOLE 40 MG TABLET PO SCH (12:30)
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
[2018-06-07 16:52] LABS: Glucose,Whole Blood 117 mg/dL (75-99)
[2018-06-07 20:30] LABS: Glucose,Whole Blood 170 mg/dL (75-99)
[2018-06-07] MEDS: ATORVASTATIN 80 MG TAB PO SCH (21:15)
[2018-06-08] MEDS: metroNIDAZOLE 500 MG TAB PO SCH ×4 (01:28→23:34)
[2018-06-08 07:12] LABS: Glucose,Whole Blood 105 mg/dL (75-99)
[2018-06-08] MEDS: INSULIN ASPART 100 UNIT/ML 1 ML 10 ML VIAL SQ SCH ×4 (08:32→21:02)
[2018-06-08] MEDS: IPRATROPIUM-ALBUTEROL 3 ML NEB INHALATION SCH ×4 (09:14→20:26)
[2018-06-08] MEDS: SYMBICORT 160-4.5 MCG INHALER INHALATION SCH ×2 (09:14→20:31)
[2018-06-08] MEDS: LACOSAMIDE 50 MG TABLET PO SCH ×2 (09:27→21:02)
[2018-06-08] MEDS: ASPIRIN 81 MG PO SCH (09:27)
[2018-06-08] MEDS: SPIRONOLACTONE 25 MG TAB PO SCH (09:27)
[2018-06-08] MEDS: FUROSEMIDE 40 MG TAB PO SCH ×2 (09:27→17:27)
[2018-06-08] MEDS: CYANOCOBALAMIN 500 MCG TAB PO SCH (09:28)
[2018-06-08] MEDS: DONEPEZIL 5 MG TAB PO SCH (09:29)
[2018-06-08] MEDS: METOPROLOL SUCCINATE (ER) 50 MG TAB.ER.24H PO SCH (09:30)
[2018-06-08] MEDS: PARoxetine 20 MG TAB PO SCH (09:30)
[2018-06-08] MEDS: PRIMIDONE 50 MG TAB PO SCH ×3 (09:31→21:03)
[2018-06-08 11:24] LABS: Glucose,Whole Blood 149 mg/dL (75-99)
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
[2018-06-08] MEDS: HYDROmorphone 0.5 MG/0.5 ML SYRINGE IVP PRN ×2 (11:51→21:03)
[2018-06-08 12:15] LABS: Anisocytosis Slight; Basophils % (A) 0 %; Eosinophils # (A) 0.4 k/uL (0-0.7); Eosinophils % (A) 3 %; HCT 25.4 % (34.0-46.0); HGB 7.1 gm/dL (11.4-16.0); Hypochromasia Marked; Lymphocytes # (A) 1.3 k/uL (1.0-4.8); Lymphocytes % (A) 9 %; MCH 20.9 pg (25.0-35.0); MCHC 27.9 g/dL (31.0-37.0); Mean Platelet Volume 6.4; Microcytosis Moderate; Monocytes # (A) 0.7 k/uL (0-1.0); Monocytes % (A) 5 %; Neutrophils # (A) 12.3 k/uL (1.3-7.7); Neutrophils % (A) 82 %; Platelet Count 607 k/uL (150-450); Poikilocytosis Slight; RBC 3.38 m/uL (3.80-5.40); RDW 18.6 % (11.5-15.5)
[2018-06-08 12:21] LABS: Anion Gap 9 mmol/L; Blood Urea Nitrogen 18 mg/dL (7-17); Calcium 8.8 mg/dL (8.4-10.2); Carbon Dioxide 32 mmol/L (22-30); Chloride 99 mmol/L (98-107); Glucose 125 mg/dL (74-99); Potassium 3.4 mmol/L (3.5-5.1); Sodium 140 mmol/L (137-145)
[2018-06-08] MEDS: PANTOPRAZOLE 40 MG TABLET PO SCH (12:46)
--- NOTE | 2018-06-08 13:06 | CT ---
EXAMINATION TYPE: CT abdomen pelvis w con DATE OF EXAM: 06/08/2018 COMPARISON: 05/31/2018 HISTORY: 62-year-old female with abdominal pain, patient poor historian TECHNIQUE: Contiguous axial scanning of the abdomen and pelvis following administration of 100 ml Iso renita 300 IV contrast. Delayed images through the kidneys and coronal/sagittal reconstructions perform ed. CT DLP: 810 mGycm Automated exposure control for dose reduction was used. FINDINGS: Heart borderline enlarged. Tricuspid and mitral annular calcifications. Trace residual right pleural effusion. Patchy peripheral right basilar density remains. Redemonstrated moderate to severe at the scarring calcifications throughout the abdominal aorta and i liac arteries. New cystic lesions within the inferior central right liver lobe measuring up to 2.5 cm with some new surrounding hyperemia in the liver. There is distortion of the normal architecture of the fourth portion of the duodenum with possible ab normal thickening and adjacent cystic area measuring 1.7 cm, appears contiguous with a 2.3 cm cyst in segment 6 of the right liver lobe, not present on 05/30/2018. No free air is seen. There is been some improvement in the previous mild abdominal ascites. Mild prominence to the main pancreatic duct measuring up to 3 mm. Portal venous system is patent. Gal lbladder normal caliber. Stable low density nodule left adrenal gland suggestive of a lipid rich adrenal adenoma. Right adrena l gland, right kidney, and spleen appear within normal limits. Some vascular calcifications are noted . Subcentimeter hypodensity left kidney too small for accurate CT characterization. A couple borderline distended small bowel loops in the right side of the abdomen measure up to 2.9 cm . The abnormally dilated small bowel loops seen on 05/30/2018 have resolved. There is a small 5 mm density along the left upper quadrant anterior abdominal wall musculature not c learly seen on 12/08/2017. There seems to be some type of tract along this region. Within the anterior omentum just deep to this area, there is prominent soft tissue thickening measuring up to 2.7 x 1.7 cm not clearly seen previously. Questionable extension to the anterior wall of the stomach, refer to axial images 27 through 29. Normal appendix. Moderate stool within the colon. Overall caliber of the hepatic flexure and transver se colon appears improved from 05/31/2018. Prominent oral contrast has reached the rectum. Redundant sigmoid colon. Multiple fusiform dilatations of the abdominal aorta measuring up to 2.1 cm. Bladder incompletely distended. No obvious lymphadenopathy seen the limited intra-abdominal fat cause s difficulty in assessment. Bones: Degenerative changes of the hips and lower lumbar spine. No osseous destructive process. IMPRESSION: 1. CYSTIC LESIONS WITHIN THE CENTRAL RIGHT SIDE OF THE LIVER ARE NEW FROM 05/30/2018 AND MEASURE UP T O 2.5 CM SHOWING SOME MILD SURROUNDING HYPEREMIA. SMALL HEPATIC ABSCESSES SHOULD BE CONSIDERED. 2. THERE IS SOME DISTORTION TO THE COURSE OF THE FIRST PORTION OF THE DUODENUM WITH ADJACENT CYSTIC A MARY HERE WHICH SEEMS TO BE CONTIGUOUS WITH ONE OF THE NEW HEPATIC CYSTS. CONSIDER INFLAMMATORY PROCES S OF THE DUODENUM (SUCH NEOPLASM OR PEPTIC ULCER DISEASE) A SOURCE OF POSSIBLE HEPATIC ABSCESSE S. HOWEVER, THERE IS NO FREE AIR SEEN. OVERALL ASCITES FLUID HAS IMPROVED AND THERE IS ONLY A TRACE R ESIDUAL RIGHT EFFUSION. 3. QUERY PRIOR PEG TUBE PLACEMENT. THERE IS THICKENED SOFT TISSUE MEASURING 2.7 X 1.7 CM JUST DEEP TO THE LEFT UPPER QUADRANT ABDOMINAL WALL THAT SEEMS TO EXTEND TO THE ANTERIOR WALL OF THE STOMACH. THI S THICKENING IS NOT SEEN PREVIOUSLY AND COULD REPRESENT SOME LOCALIZED INFLAMMATION SUCH OF A RESI DUAL FISTULOUS TRACT. CLINICALLY CORRELATE. 4. IMPROVED WALL THICKENING OF THE COLON. NO EVIDENCE FOR BOWEL OBSTRUCTION.
[2018-06-08 17:13] LABS: Glucose,Whole Blood 128 mg/dL (75-99)
--- NOTE | 2018-06-08 19:46 | P.PN ---
Subjective Progress Note Date: 06/08/18 Principal diagnosis: Abdominal pain Patient this morning was having increased abdominal pain. Primarily in the upper abdomen. It is resolved at this time for the most part. She is tolerating regular food currently. CAT scan was repeated. CAT scan shows some new lesions in the liver that appear to possibly be related to inflammatory changes around the duodenum. Previous PEG tube tract also noted. Patient states her feeding tube was removed about 1-2 months ago. No free air is seen. White blood cell count increased back up to 15. Objective - Vital Signs Vital signs: Vital Signs Temp 98.4 F 06/08/18 11:26 Pulse 79 06/08/18 16:00 Resp 22 06/08/18 16:00 BP 93/55 06/08/18 11:26 Pulse Ox 97 06/08/18 11:26 Intake & Output 06/08/18 06/08/18 06/09/18 06:59 18:59 06:59 Intake Total 240 3890 Balance 240 3890 Intake: Intake, IV Titration 50 Amount cefTRIAXone 1,000 mg In 50 Sodium Chloride 0.9% 50 ml @ 100 mls/hr IVPB Q24H [facility] Rx#:[id number] Oral 240 3840 Other: Voiding Method Diaper Diaper Incontinent Incontinent # Voids 3 3 - Exam Abdomen: Soft, nondistended, mild epigastric tenderness - Labs CBC & Chem 7: 06/08/18 11:48 06/08/18 11:48 Labs: Abnormal Lab Results - Last 24 Hours (Table) 06/07/18 06/08/18 06/08/18 Range/Units 20:28 07:10 11:22 WBC (3.8-10.6) k/uL RBC (3.80-5.40) m/uL Hgb (11.4-16.0) gm/dL Hct (34.0-46.0) % MCV (80.0-100.0) fL MCH (25.0-35.0) pg MCHC (31.0-37.0) g/dL RDW (11.5-15.5) % Plt Count (150-450) k/uL Neutrophils # (1.3-7.7) k/uL Potassium (3.5-5.1) mmol/L Carbon Dioxide (22-30) mmol/L BUN (7-17) mg/dL Creatinine (0.52-1.04) mg/dL Glucose (74-99) mg/dL POC Glucose (mg/dL) 170 H 105 H 149 H (75-99) mg/dL 06/08/18 06/08/18 06/08/18 Range/Units 11:48 11:48 17:11 WBC 15.0 H (3.8-10.6) k/uL RBC 3.38 L (3.80-5.40) m/uL Hgb 7.1 L (11.4-16.0) gm/dL Hct 25.4 L (34.0-46.0) % MCV 75.0 L (80.0-100.0) fL MCH 20.9 L (25.0-35.0) pg MCHC 27.9 L (31.0-37.0) g/dL RDW 18.6 H (11.5-15.5) % Plt Count 607 H (150-450) k/uL Neutrophils # 12.3 H (1.3-7.7) k/uL Potassium 3.4 L (3.5-5.1) mmol/L Carbon Dioxide 32 H (22-30) mmol/L BUN 18 H (7-17) mg/dL Creatinine 0.49 L (0.52-1.04) mg/dL Glucose 125 H (74-99) mg/dL POC Glucose (mg/dL) 128 H (75-99) mg/dL Assessment and Plan (1) Abdominal pain Narrative/Plan: Patient's pain had recurred somewhat earlier today. CAT scan findings as described. The patient's clinical course could be explained by a small perforation of the duodenum from ulceration. We'll plan upper endoscopy tomorrow. Continue nothing by mouth after midnight. Continue antiacids. Will follow. Current Visit: Yes Status: Acute Code(s): R10.9 - UNSPECIFIED ABDOMINAL PAIN SNOMED Code(s): 43452148
[2018-06-08 20:02] LABS: Glucose,Whole Blood 311 mg/dL (75-99)
[2018-06-08 20:04] LABS: Glucose,Whole Blood 229 mg/dL (75-99)
[2018-06-08] MEDS: ATORVASTATIN 80 MG TAB PO SCH (21:02)
[2018-06-08] MEDS ORDERED: DEXTROSE 50%-WATER 50 ML SYRINGE IVP STA (23:43)
[2018-06-08] MEDS ORDERED: DEXTROSE 50%-WATER 50 ML SYRINGE IVP ONE (23:43)
[2018-06-08 23:50] LABS: Glucose,Whole Blood 47 mg/dL (75-99)
[2018-06-09 00:07] LABS: Glucose,Whole Blood 268 mg/dL (75-99)
[2018-06-09 06:59] LABS: Glucose,Whole Blood 120 mg/dL (75-99)
[2018-06-09] MEDS: SYMBICORT 160-4.5 MCG INHALER INHALATION SCH ×2 (08:30→20:24)
[2018-06-09] MEDS: IPRATROPIUM-ALBUTEROL 3 ML NEB INHALATION SCH ×4 (08:30→20:24)
[2018-06-09] MEDS ORDERED: IV FLUID CONTINUATION 1,000 ML IV ONE (09:33)
[2018-06-09] MEDS ORDERED: LIDOCAINE 1% INJ 10MG/ML (20 ML MDV) ONE (09:35)
[2018-06-09] MEDS ORDERED: PROPOFOL 10 MG/ML 20 ML VIAL IV ONE (09:35)
--- NOTE | 2018-06-09 10:01 | P.PCN ---
Date of Procedure: 06/09/18 Procedure(s) Performed: Preoperative Dx: Abdominal pain suspect duodenal ulcer Postoperative Dx: Small posterior duodenal ulcer, small hiatal hernia, minimal gastritis Procedure: EGD with Bx Anesthesia: Sedation Endoscopist: Dr. Booker Specimens: Antrum Endoscopic Procedure: The patient was on the endoscopy table in the left decubitus position. The Olympus gastroscope was inserted into the oropharynx and passed under direct visualization to the region of the third portion of the duodenum. From that point the scope was slowly withdrawn inspecting all surfaces carefully. The second and third portion of the duodenum appeared normal. The duodenal bulb however had some scarring and as I inspected the posterior duodenal bulb there was noted be a small 6-7 mm ulceration with a clean base. No visible vessel or adherent clot. No biopsies taken. The pylorus was widely patent. The stomach was carefully inspected. There was minimal gastritis present. A biopsy of the antrum took place to rule out H. pylori. Retroflexion revealed a small hiatal hernia. The esophagus was then carefully examined. There were no neoplastic inflammatory or polypoid lesions throughout the visualized esophagus. The patient was then taken to the recovery room in stable condition per anesthesia guidelines. Recommendations: Suspect the patient's primary issue is related to this duodenal ulceration which likely had a small microscopic perforation leading to the leukocytosis and abdominal pain. This also explained the colonic thickening seen on recent CAT scan. This appears to be for the most part healing. The hepatic lesions however need to be further addressed. Recommend infectious disease consultation. Continue antiacid therapy and will add Carafate. Resume a dysphagia diet. Will follow.
[2018-06-09] MEDS: metroNIDAZOLE 500 MG TAB PO SCH ×2 (10:27→15:52)
[2018-06-09] MEDS: LACOSAMIDE 50 MG TABLET PO SCH ×2 (10:27→21:10)
[2018-06-09] MEDS: SPIRONOLACTONE 25 MG TAB PO SCH (10:28)
[2018-06-09] MEDS: PANTOPRAZOLE 40 MG TABLET PO SCH (10:28)
[2018-06-09] MEDS: ASPIRIN 81 MG PO SCH (10:28)
[2018-06-09] MEDS: FUROSEMIDE 40 MG TAB PO SCH ×2 (10:28→15:52)
[2018-06-09] MEDS: CYANOCOBALAMIN 500 MCG TAB PO SCH (10:28)
[2018-06-09] MEDS: METOPROLOL SUCCINATE (ER) 50 MG TAB.ER.24H PO SCH (10:29)
[2018-06-09] MEDS: DONEPEZIL 5 MG TAB PO SCH (10:29)
[2018-06-09] MEDS: PRIMIDONE 50 MG TAB PO SCH ×3 (10:30→21:10)
[2018-06-09] MEDS: PARoxetine 20 MG TAB PO SCH (10:30)
[2018-06-09] MEDS: INSULIN ASPART 100 UNIT/ML 1 ML 10 ML VIAL SQ SCH ×4 (10:46→21:04)
[2018-06-09 10:55] VITALS: BMI 30.2
[2018-06-09 11:06] LABS: Anisocytosis Slight; Basophils % (A) 0 %; Eosinophils # (A) 0.5 k/uL (0-0.7); Eosinophils % (A) 3 %; HCT 26.9 % (34.0-46.0); HGB 7.4 gm/dL (11.4-16.0); Hypochromasia Marked; Lymphocytes # (A) 1.4 k/uL (1.0-4.8); Lymphocytes % (A) 9 %; MCH 20.8 pg (25.0-35.0); MCHC 27.6 g/dL (31.0-37.0); MCV 75.2 fL (80.0-100.0); Mean Platelet Volume 6.1; Microcytosis Moderate; Monocytes % (A) 7 %; Neutrophils # (A) 11.9 k/uL (1.3-7.7); Neutrophils % (A) 79 %; Platelet Count 672 k/uL (150-450); Poikilocytosis Slight; RBC 3.57 m/uL (3.80-5.40); RDW 18.1 % (11.5-15.5); WBC 15.1 k/uL (3.8-10.6)
[2018-06-09 11:19] LABS: ALT 21 U/L (9-52); AST 20 U/L (14-36); Albumin 3.1 g/dL (3.5-5.0); Alkaline Phosphatase 65 U/L (38-126); Anion Gap 6 mmol/L; Blood Urea Nitrogen 15 mg/dL (7-17); Calcium 8.9 mg/dL (8.4-10.2); Carbon Dioxide 36 mmol/L (22-30); Chloride 100 mmol/L (98-107); Glucose 97 mg/dL (74-99); Magnesium 1.5 mg/dL (1.6-2.3); Potassium 3.2 mmol/L (3.5-5.1); Sodium 142 mmol/L (137-145); Total Bilirubin 0.2 mg/dL (0.2-1.3)
[2018-06-09 11:41] LABS: Glucose,Whole Blood 139 mg/dL (75-99)
[2018-06-09] MEDS: SUCRALFATE 1 GM TAB PO SCH ×2 (12:48→17:00)
[2018-06-09] MEDS: POTASSIUM CHLORIDE ER 20 MEQ TAB.ER PO SCH ×4 (12:48→17:00)
[2018-06-09] MEDS: MAGNESIUM SULFATE-D5W PMX 1 GM in DEXTROSE/WATER 1 100ML.BAG IVPB SCH ×3 (12:48→15:44)
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
[2018-06-09] MEDS: HYDROmorphone 0.5 MG/0.5 ML SYRINGE IVP PRN (14:45)
[2018-06-09 16:54] LABS: Glucose,Whole Blood 214 mg/dL (75-99)
[2018-06-09] MEDS: SODIUM CHLORIDE 0.9% 250 ML IV SCH ×3 (20:55→21:08)
[2018-06-09] MEDS: ATORVASTATIN 80 MG TAB PO SCH (21:09)
[2018-06-09 21:13] LABS: Glucose,Whole Blood 127 mg/dL (75-99)
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
[2018-06-10] MEDS: metroNIDAZOLE 500 MG TAB PO SCH ×4 (00:04→23:38)
[2018-06-10] MEDS: PIPERACILLIN-TAZOBACTAM 3.375 GM in SODIUM CHLORIDE 0.9% 100 ML IVPB SCH ×4 (00:33→23:39)
[2018-06-10] MEDS: ALPRAZolam 0.25 MG TAB PO PRN (01:04)
[2018-06-10 07:16] LABS: Glucose,Whole Blood 111 mg/dL (75-99)
[2018-06-10] MEDS: INSULIN ASPART 100 UNIT/ML 1 ML 10 ML VIAL SQ SCH ×5 (07:27→21:38)
[2018-06-10] MEDS: SYMBICORT 160-4.5 MCG INHALER INHALATION SCH ×2 (08:11→20:46)
[2018-06-10] MEDS: IPRATROPIUM-ALBUTEROL 3 ML NEB INHALATION SCH ×4 (08:12→20:46)
[2018-06-10 08:26] LABS: ALT 21 U/L (9-52); AST 18 U/L (14-36); Albumin 2.9 g/dL (3.5-5.0); Alkaline Phosphatase 57 U/L (38-126); Anion Gap 6 mmol/L; Blood Urea Nitrogen 14 mg/dL (7-17); Calcium 8.5 mg/dL (8.4-10.2); Carbon Dioxide 31 mmol/L (22-30); Chloride 101 mmol/L (98-107); Glucose 99 mg/dL (74-99); Sodium 138 mmol/L (137-145); Total Bilirubin 0.2 mg/dL (0.2-1.3); Total Protein 5.8 g/dL (6.3-8.2)
[2018-06-10 08:58] LABS: Anisocytosis Slight; HCT 23.6 % (34.0-46.0); Hypochromasia Marked; MCH 21.2 pg (25.0-35.0); MCHC 28.7 g/dL (31.0-37.0); Mean Platelet Volume 6.9; Microcytosis Moderate; Platelet Count 619 k/uL (150-450); Poikilocytosis Slight; RBC 3.19 m/uL (3.80-5.40); RDW 18.6 % (11.5-15.5); WBC 14.3 k/uL (3.8-10.6)
[2018-06-10] MEDS: FUROSEMIDE 40 MG TAB PO SCH ×2 (09:01→16:13)
[2018-06-10] MEDS: POTASSIUM CHLORIDE ER 20 MEQ TAB.ER PO SCH (09:01)
[2018-06-10] MEDS: SPIRONOLACTONE 25 MG TAB PO SCH (09:01)
[2018-06-10] MEDS: CYANOCOBALAMIN 500 MCG TAB PO SCH (09:01)
[2018-06-10] MEDS: PANTOPRAZOLE 40 MG TABLET PO SCH (09:01)
[2018-06-10] MEDS: ASPIRIN 81 MG PO SCH (09:02)
[2018-06-10] MEDS: LACOSAMIDE 50 MG TABLET PO SCH ×2 (09:02→22:09)
[2018-06-10] MEDS: PARoxetine 20 MG TAB PO SCH (09:03)
[2018-06-10] MEDS: METOPROLOL SUCCINATE (ER) 50 MG TAB.ER.24H PO SCH (09:04)
[2018-06-10] MEDS: DONEPEZIL 5 MG TAB PO SCH (09:04)
[2018-06-10 09:05] LABS: HGB 6.8 gm/dL (11.4-16.0)
[2018-06-10] MEDS: SUCRALFATE 1 GM TAB PO SCH ×3 (09:06→17:46)
[2018-06-10] MEDS: PRIMIDONE 50 MG TAB PO SCH ×3 (09:06→22:09)
[2018-06-10 12:05] LABS: Glucose,Whole Blood 121 mg/dL (75-99)
[2018-06-10 12:13] LABS: Anisocytosis (M) Present; Eosinophils # (M) 0.14 k/uL (0-0.7); Lymphocytes # (M) 1.57 k/uL (1.0-4.8); Metamyelocytes # (M) 0.14 k/uL (0); Metamyelocytes % 1 %; Monocytes # (M) 1.57 k/uL (0-1.0); Neutrophils # (M) 10.87 k/uL (1.3-7.7); Neutrophils % (M) 76 %; Nucleated Red Blood Cells 0 /100 WBC (0-0); Poikilocytosis (M) Present; Total Cells Counted 100
[2018-06-10 12:14] LABS: Hypochromasia (M) Present; Ovalocytes Present
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
[2018-06-10] MEDS: HYDROmorphone 0.5 MG/0.5 ML SYRINGE IVP PRN (14:45)
[2018-06-10 17:01] LABS: Glucose,Whole Blood 164 mg/dL (75-99)
--- NOTE | 2018-06-10 17:59 | P.PN ---
Subjective Progress Note Date: 06/10/18 CHIEF COMPLAINT: Epigastric abdominal pain HISTORY OF PRESENT ILLNESS: The patient is a 62 year old female who is status post status post upper endoscopy. She is tolerating a regular diet. No reports of moderate abdominal pain. No fevers or chills. PHYSICAL EXAM: VITAL SIGNS: Reviewed GENERAL: Well-developed in no acute distress. HEENT: No sclera icterus. Extraocular movements grossly intact. Moist buccal mucosa. Head is atraumatic, normocephalic. Hears conversational speech. No nasal drainage. NECK: Supple without lymphadenopathy. CHEST: Non-labored respirations and equal bilateral excursions. CARDIOVASCULAR: Regular rate with regular rhythm. ABDOMEN: Soft, nondistended. No peritonitis MUSCULOSKELETAL: No clubbing, cyanosis or edema. NEUROLOGIC: No focal or lateralizing signs. Cranial nerves II through XII grossly intact. PSYCH: Alert and oriented to person, place and time. SKIN: Well perfused. Good skin turgor. LABS: Reviewed ASSESSMENT: 1. History of epigastric abdominal pain 2. Duodenal ulcer 3. Leukocytosis PLAN: 1. Diet as tolerated 2. Continue antiacid therapy 3. Infectious disease consultation for leukocytosis Objective - Vital Signs Vital signs: Vital Signs Temp 97.7 F 06/10/18 16:10 Pulse 79 06/10/18 16:17 Resp 20 06/10/18 16:10 BP 89/33 06/10/18 16:10 Pulse Ox 92 L 06/10/18 16:10 Intake & Output 06/09/18 06/10/18 06/10/18 18:59 06:59 18:59 Intake Total 2560 1130 568 Output Total 2500 Balance 60 1130 568 Weight 77.5 kg 77 kg Intake: IV 50 20 ns@20 20 Intake, IV Titration 350 350 Amount Magnesium Sulfate-D5w Pmx 300 1 gm In Dextrose/Water 1 100ml.bag @ 100 mls/hr IVPB Q1H [facility] Rx#: [id number] Piperacillin-Tazobactam 3 100 .375 gm In Sodium Chloride 0.9% 100 ml @ 25 mls/hr IVPB Q8HR [facility] Rx# :[id number] Sodium Chloride 0.9% 250 250 ml @ 999 mls/hr IV .Q16M [facility] Rx#:[id number] cefTRIAXone 1,000 mg In 50 Sodium Chloride 0.9% 50 ml @ 100 mls/hr IVPB Q24H [facility] Rx#:[id number] Oral 2160 780 238 Blood Product 310 Rc As-1 Unit 310 [id number] Output: Urine 2500 Other: Voiding Method Diaper Toilet Toilet Incontinent Diaper Diaper Incontinent Incontinent # Voids 3 2 - Labs CBC & Chem 7: 06/11/18 07:21 06/11/18 07:21 Labs: Abnormal Lab Results - Last 24 Hours (Table) 06/09/18 06/10/18 06/10/18 Range/Units 20:53 07:14 07:52 WBC 14.3 H (3.8-10.6) k/uL RBC 3.19 L (3.80-5.40) m/uL Hgb 6.8 L* (11.4-16.0) gm/dL Hct 23.6 L (34.0-46.0) % MCV 74.0 L (80.0-100.0) fL MCH 21.2 L (25.0-35.0) pg MCHC 28.7 L (31.0-37.0) g/dL RDW 18.6 H (11.5-15.5) % Plt Count 619 H (150-450) k/uL Neutrophils # (Manual) 10.87 H (1.3-7.7) k/uL Monocytes # (Manual) 1.57 H (0-1.0) k/uL Metamyelocytes # (Man) 0.14 H (0) k/uL Carbon Dioxide (22-30) mmol/L POC Glucose (mg/dL) 127 H 111 H (75-99) mg/dL Total Protein (6.3-8.2) g/dL Albumin (3.5-5.0) g/dL Crossmatch 06/10/18 06/10/18 06/10/18 Range/Units 07:52 09:51 12:04 WBC (3.8-10.6) k/uL RBC (3.80-5.40) m/uL Hgb (11.4-16.0) gm/dL Hct (34.0-46.0) % MCV (80.0-100.0) fL MCH (25.0-35.0) pg MCHC (31.0-37.0) g/dL RDW (11.5-15.5) % Plt Count (150-450) k/uL Neutrophils # (Manual) (1.3-7.7) k/uL Monocytes # (Manual) (0-1.0) k/uL Metamyelocytes # (Man) (0) k/uL Carbon Dioxide 31 H (22-30) mmol/L POC Glucose (mg/dL) 121 H (75-99) mg/dL Total Protein 5.8 L (6.3-8.2) g/dL Albumin 2.9 L (3.5-5.0) g/dL Crossmatch See Detail 06/10/18 Range/Units 17:00 WBC (3.8-10.6) k/uL RBC (3.80-5.40) m/uL Hgb (11.4-16.0) gm/dL Hct (34.0-46.0) % MCV (80.0-100.0) fL MCH (25.0-35.0) pg MCHC (31.0-37.0) g/dL RDW (11.5-15.5) % Plt Count (150-450) k/uL Neutrophils # (Manual) (1.3-7.7) k/uL Monocytes # (Manual) (0-1.0) k/uL Metamyelocytes # (Man) (0) k/uL Carbon Dioxide (22-30) mmol/L POC Glucose (mg/dL) 164 H (75-99) mg/dL Total Protein (6.3-8.2) g/dL Albumin (3.5-5.0) g/dL Crossmatch Assessment and Plan (1) Duodenal ulcer Current Visit: Yes Status: Acute Code(s): K26.9 - DUODENAL ULCER, UNSP ACUTE OR CHRONIC, W/O HEMOR OR PERF SNOMED Code(s): 08020106 (2) Iron deficiency anemia Current Visit: Yes Status: Acute Code(s): D50.9 - IRON DEFICIENCY ANEMIA, UNSPECIFIED SNOMED Code(s): 02772133 (3) Liver lesion Current Visit: Yes Status: Acute Priority: High Code(s): K76.9 - LIVER DISEASE, UNSPECIFIED SNOMED Code(s): 224213837 (4) Microcytic hypochromic anemia Current Visit: Yes Status: Acute Code(s): D50.9 - IRON DEFICIENCY ANEMIA, UNSPECIFIED SNOMED Code(s): 39569054 (5) Congestive heart failure Current Visit: Yes Status: Chronic Code(s): I50.9 - HEART FAILURE, UNSPECIFIED SNOMED Code(s): 19712153 (6) Acute systolic ACC/AHA stage C congestive heart failure Current Visit: No Status: Acute Code(s): I50.21 - ACUTE SYSTOLIC (CONGESTIVE ) HEART FAILURE SNOMED Code(s): 690233867 (7) COPD (chronic obstructive pulmonary disease) Current Visit: No Status: Acute Code(s): J44.9 - CHRONIC OBSTRUCTIVE PULMONARY DISEASE, UNSPECIFIED SNOMED Code(s): 00134738 (8) Epigastric abdominal pain Current Visit: Yes Status: Acute Code(s): R10.13 - EPIGASTRIC PAIN SNOMED Code(s): 43233477
[2018-06-10 21:21] LABS: Glucose,Whole Blood 118 mg/dL (75-99)
[2018-06-10] MEDS: ATORVASTATIN 80 MG TAB PO SCH (22:09)
[2018-06-11 07:20] LABS: Glucose,Whole Blood 110 mg/dL (75-99)
[2018-06-11] MEDS: INSULIN ASPART 100 UNIT/ML 1 ML 10 ML VIAL SQ SCH ×4 (07:55→21:54)
[2018-06-11 08:58] LABS: Anisocytosis Slight; HCT 31.6 % (34.0-46.0); Hypochromasia Marked; MCH 22.3 pg (25.0-35.0); MCHC 28.9 g/dL (31.0-37.0); MCV 77.2 fL (80.0-100.0); Mean Platelet Volume 7.4; Microcytosis Moderate; Platelet Count 701 k/uL (150-450); Poikilocytosis Moderate; RBC 4.09 m/uL (3.80-5.40); RDW 19.6 % (11.5-15.5); WBC 14.6 k/uL (3.8-10.6)
[2018-06-11] MEDS: IPRATROPIUM-ALBUTEROL 3 ML NEB INHALATION SCH ×4 (09:05→20:40)
[2018-06-11] MEDS: SYMBICORT 160-4.5 MCG INHALER INHALATION SCH ×2 (09:05→20:40)
[2018-06-11 09:09] LABS: HGB 9.1 gm/dL (11.4-16.0)
[2018-06-11 09:20] LABS: ALT 20 U/L (9-52); AST 25 U/L (14-36); Albumin 3.2 g/dL (3.5-5.0); Alkaline Phosphatase 66 U/L (38-126); Anion Gap 10 mmol/L; Blood Urea Nitrogen 13 mg/dL (7-17); Calcium 9.2 mg/dL (8.4-10.2); Carbon Dioxide 29 mmol/L (22-30); Chloride 99 mmol/L (98-107); Glucose 89 mg/dL (74-99); Magnesium 1.8 mg/dL (1.6-2.3); Potassium 4.5 mmol/L (3.5-5.1); Sodium 138 mmol/L (137-145); Total Bilirubin 0.4 mg/dL (0.2-1.3); Total Protein 6.4 g/dL (6.3-8.2)
[2018-06-11] MEDS: PIPERACILLIN-TAZOBACTAM 3.375 GM in SODIUM CHLORIDE 0.9% 100 ML IVPB SCH ×2 (09:33→15:37)
[2018-06-11] MEDS: LACOSAMIDE 50 MG TABLET PO SCH ×2 (09:39→21:54)
[2018-06-11] MEDS: SPIRONOLACTONE 25 MG TAB PO SCH (09:39)
[2018-06-11] MEDS: ASPIRIN 81 MG PO SCH (09:39)
[2018-06-11] MEDS: POTASSIUM CHLORIDE ER 20 MEQ TAB.ER PO SCH (09:39)
[2018-06-11] MEDS: metroNIDAZOLE 500 MG TAB PO SCH ×2 (09:39→15:37)
[2018-06-11] MEDS: FUROSEMIDE 40 MG TAB PO SCH ×2 (09:39→15:37)
[2018-06-11] MEDS: CYANOCOBALAMIN 500 MCG TAB PO SCH (09:39)
[2018-06-11] MEDS: PANTOPRAZOLE 40 MG TABLET PO SCH (09:40)
[2018-06-11] MEDS: METOPROLOL SUCCINATE (ER) 50 MG TAB.ER.24H PO SCH (09:40)
[2018-06-11] MEDS: DONEPEZIL 5 MG TAB PO SCH (09:40)
[2018-06-11] MEDS: SUCRALFATE 1 GM TAB PO SCH ×3 (09:41→17:47)
[2018-06-11] MEDS: PARoxetine 20 MG TAB PO SCH (09:41)
[2018-06-11] MEDS: PRIMIDONE 50 MG TAB PO SCH ×3 (09:41→21:54)
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
[2018-06-11 11:47] LABS: Glucose,Whole Blood 182 mg/dL (75-99)
[2018-06-11 12:32] LABS: Band Neutrophils % 2 %; Eosinophils # (M) 0.29 k/uL (0-0.7); Lymphocytes # (M) 1.17 k/uL (1.0-4.8); Monocytes # (M) 2.19 k/uL (0-1.0); Myelocytes # (M) 0.15 k/uL (0); Myelocytes % 1 %; Neutrophils % (M) 74 %; Nucleated Red Blood Cells 0 /100 WBC (0-0); Total Cells Counted 200
--- NOTE | 2018-06-11 14:12 | P.PN ---
Subjective Progress Note Date: 06/11/18 CHIEF COMPLAINT: Epigastric abdominal pain HISTORY OF PRESENT ILLNESS: The patient is a 62 year old female who is status post status post upper endoscopy. She has most of her lunch over 75% today. Abdominal pain is fair. No fevers or chills. PHYSICAL EXAM: VITAL SIGNS: Reviewed GENERAL: Well-developed in no acute distress. HEENT: No sclera icterus. Extraocular movements grossly intact. Moist buccal mucosa. Head is atraumatic, normocephalic. Hears conversational speech. No nasal drainage. NECK: Supple without lymphadenopathy. CHEST: Non-labored respirations and equal bilateral excursions. CARDIOVASCULAR: Regular rate with regular rhythm. ABDOMEN: Soft, nondistended. No peritonitis. Minimal epigastric pain. MUSCULOSKELETAL: No clubbing, cyanosis or edema. NEUROLOGIC: No focal or lateralizing signs. Cranial nerves II through XII grossly intact. PSYCH: Alert and oriented to person, place and time. SKIN: Well perfused. Good skin turgor. LABS: Reviewed ASSESSMENT: 1. History of epigastric abdominal pain 2. Duodenal ulcer 3. Leukocytosis PLAN: 1. Continue antacid therapy. 2. No further surgical intervention. 3. Will sign off. Please reconsult if needed Objective - Vital Signs Vital signs: Vital Signs Temp 97.6 F 06/11/18 12:34 Pulse 79 06/11/18 12:34 Resp 17 06/11/18 12:34 BP 103/72 06/11/18 12:34 Pulse Ox 92 L 06/11/18 12:34 Intake & Output 06/10/18 06/11/18 06/11/18 18:59 06:59 18:59 Intake Total 686 1940 860 Balance 686 1940 860 Weight 77.5 kg Intake: IV 20 200 160 ns@20 20 200 160 Intake, IV Titration 200 100 Amount Piperacillin-Tazobactam 3 200 100 .375 gm In Sodium Chloride 0.9% 100 ml @ 25 mls/hr IVPB Q8HR [facility] Rx# :[id number] Oral 356 1540 600 Blood Product 310 Rc As-1 Unit 310 [id number] Other: Voiding Method Toilet Toilet Toilet Diaper Diaper Diaper Incontinent Incontinent Incontinent # Voids 1 2 - Labs CBC & Chem 7: 06/11/18 07:21 06/11/18 07:21 Labs: Abnormal Lab Results - Last 24 Hours (Table) 06/10/18 06/10/18 06/10/18 Range/Units 09:51 17:00 21:01 WBC (3.8-10.6) k/uL Hgb (11.4-16.0) gm/dL Hct (34.0-46.0) % MCV (80.0-100.0) fL MCH (25.0-35.0) pg MCHC (31.0-37.0) g/dL RDW (11.5-15.5) % Plt Count (150-450) k/uL Neutrophils # (Manual) (1.3-7.7) k/uL Monocytes # (Manual) (0-1.0) k/uL Myelocytes # (Manual) (0) k/uL POC Glucose (mg/dL) 164 H 118 H (75-99) mg/dL Albumin (3.5-5.0) g/dL Crossmatch See Detail 06/11/18 06/11/18 06/11/18 Range/Units 07:13 07:21 07:21 WBC 14.6 H (3.8-10.6) k/uL Hgb 9.1 L D (11.4-16.0) gm/dL Hct 31.6 L (34.0-46.0) % MCV 77.2 L (80.0-100.0) fL MCH 22.3 L (25.0-35.0) pg MCHC 28.9 L (31.0-37.0) g/dL RDW 19.6 H (11.5-15.5) % Plt Count 701 H (150-450) k/uL Neutrophils # (Manual) 11.00 H (1.3-7.7) k/uL Monocytes # (Manual) 2.19 H (0-1.0) k/uL Myelocytes # (Manual) 0.15 H (0) k/uL POC Glucose (mg/dL) 110 H (75-99) mg/dL Albumin 3.2 L (3.5-5.0) g/dL Crossmatch 06/11/18 Range/Units 11:46 WBC (3.8-10.6) k/uL Hgb (11.4-16.0) gm/dL Hct (34.0-46.0) % MCV (80.0-100.0) fL MCH (25.0-35.0) pg MCHC (31.0-37.0) g/dL RDW (11.5-15.5) % Plt Count (150-450) k/uL Neutrophils # (Manual) (1.3-7.7) k/uL Monocytes # (Manual) (0-1.0) k/uL Myelocytes # (Manual) (0) k/uL POC Glucose (mg/dL) 182 H (75-99) mg/dL Albumin (3.5-5.0) g/dL Crossmatch Microbiology - Last 24 Hours (Table) 06/09/18 22:24 Blood Culture - Preliminary Blood No Growth after 24 hours 06/09/18 22:35 Blood Culture - Preliminary Blood No Growth after 24 hours Assessment and Plan (1) Duodenal ulcer Current Visit: Yes Status: Acute Code(s): K26.9 - DUODENAL ULCER, UNSP ACUTE OR CHRONIC, W/O HEMOR OR PERF SNOMED Code(s): 13647841 (2) Iron deficiency anemia Current Visit: Yes Status: Acute Code(s): D50.9 - IRON DEFICIENCY ANEMIA, UNSPECIFIED SNOMED Code(s): 45212938 (3) Liver lesion Current Visit: Yes Status: Acute Priority: High Code(s): K76.9 - LIVER DISEASE, UNSPECIFIED SNOMED Code(s): 996624164 (4) Microcytic hypochromic anemia Current Visit: Yes Status: Acute Code(s): D50.9 - IRON DEFICIENCY ANEMIA, UNSPECIFIED SNOMED Code(s): 79745366 (5) Congestive heart failure Current Visit: Yes Status: Chronic Code(s): I50.9 - HEART FAILURE, UNSPECIFIED SNOMED Code(s): 17108670 (6) Acute systolic ACC/AHA stage C congestive heart failure Current Visit: No Status: Acute Code(s): I50.21 - ACUTE SYSTOLIC (CONGESTIVE ) HEART FAILURE SNOMED Code(s): 857912407 (7) COPD (chronic obstructive pulmonary disease) Current Visit: No Status: Acute Code(s): J44.9 - CHRONIC OBSTRUCTIVE PULMONARY DISEASE, UNSPECIFIED SNOMED Code(s): 79190443 (8) Epigastric abdominal pain Current Visit: Yes Status: Acute Code(s): R10.13 - EPIGASTRIC PAIN SNOMED Code(s): 45218374
[2018-06-11] MEDS: HYDROmorphone 0.5 MG/0.5 ML SYRINGE IVP PRN ×2 (14:27→21:55)
[2018-06-11 17:07] LABS: Glucose,Whole Blood 117 mg/dL (75-99)
[2018-06-11 21:04] LABS: Glucose,Whole Blood 156 mg/dL (75-99)
[2018-06-11] MEDS: ATORVASTATIN 80 MG TAB PO SCH (21:54)
[2018-06-11] MEDS: ALPRAZolam 0.25 MG TAB PO PRN (21:54)
[2018-06-12] MEDS: metroNIDAZOLE 500 MG TAB PO SCH ×4 (01:54→23:47)
[2018-06-12] MEDS: PIPERACILLIN-TAZOBACTAM 3.375 GM in SODIUM CHLORIDE 0.9% 100 ML IVPB SCH ×2 (01:54→09:09)
[2018-06-12 06:59] LABS: Glucose,Whole Blood 106 mg/dL (75-99)
[2018-06-12] MEDS: INSULIN ASPART 100 UNIT/ML 1 ML 10 ML VIAL SQ SCH ×4 (07:32→20:18)
[2018-06-12 07:55] LABS: Anisocytosis Slight; Basophils # (A) 0.1 k/uL (0-0.2); Basophils % (A) 1 %; Eosinophils # (A) 0.3 k/uL (0-0.7); Eosinophils % (A) 2 %; HCT 30.7 % (34.0-46.0); HGB 8.9 gm/dL (11.4-16.0); Hypochromasia Marked; Lymphocytes # (A) 1.6 k/uL (1.0-4.8); Lymphocytes % (A) 13 %; MCH 22.4 pg (25.0-35.0); MCHC 29.1 g/dL (31.0-37.0); MCV 77.1 fL (80.0-100.0); Microcytosis Moderate; Monocytes # (A) 1.1 k/uL (0-1.0); Monocytes % (A) 9 %; Neutrophils # (A) 8.9 k/uL (1.3-7.7); Neutrophils % (A) 73 %; Platelet Count 645 k/uL (150-450); Poikilocytosis Moderate; RBC 3.98 m/uL (3.80-5.40); RDW 19.9 % (11.5-15.5); WBC 12.2 k/uL (3.8-10.6)
[2018-06-12 08:06] LABS: ALT 19 U/L (9-52); AST 19 U/L (14-36); Alkaline Phosphatase 61 U/L (38-126); Anion Gap 8 mmol/L; Blood Urea Nitrogen 11 mg/dL (7-17); Calcium 8.8 mg/dL (8.4-10.2); Carbon Dioxide 30 mmol/L (22-30); Chloride 100 mmol/L (98-107); Glucose 94 mg/dL (74-99); Magnesium 1.7 mg/dL (1.6-2.3); Potassium 3.9 mmol/L (3.5-5.1); Sodium 138 mmol/L (137-145); Total Bilirubin 0.3 mg/dL (0.2-1.3); Total Protein 5.9 g/dL (6.3-8.2)
[2018-06-12] MEDS: IPRATROPIUM-ALBUTEROL 3 ML NEB INHALATION SCH ×4 (08:59→19:49)
[2018-06-12] MEDS: SYMBICORT 160-4.5 MCG INHALER INHALATION SCH ×2 (08:59→19:49)
[2018-06-12] MEDS: ASPIRIN 81 MG PO SCH (09:12)
[2018-06-12] MEDS: SPIRONOLACTONE 25 MG TAB PO SCH (09:12)
[2018-06-12] MEDS: CYANOCOBALAMIN 500 MCG TAB PO SCH (09:12)
[2018-06-12] MEDS: LACOSAMIDE 50 MG TABLET PO SCH ×2 (09:13→20:17)
[2018-06-12] MEDS: FUROSEMIDE 40 MG TAB PO SCH ×2 (09:13→17:29)
[2018-06-12] MEDS: POTASSIUM CHLORIDE ER 20 MEQ TAB.ER PO SCH (09:13)
[2018-06-12] MEDS: PANTOPRAZOLE 40 MG TABLET PO SCH (09:13)
[2018-06-12] MEDS: PARoxetine 20 MG TAB PO SCH (09:14)
[2018-06-12] MEDS: PRIMIDONE 50 MG TAB PO SCH ×3 (09:14→23:47)
[2018-06-12] MEDS: SUCRALFATE 1 GM TAB PO SCH ×3 (09:14→17:29)
[2018-06-12] MEDS: METOPROLOL SUCCINATE (ER) 50 MG TAB.ER.24H PO SCH (09:15)
[2018-06-12] MEDS: DONEPEZIL 5 MG TAB PO SCH (09:15)
[2018-06-12 11:11] LABS: Glucose,Whole Blood 205 mg/dL (75-99)
[2018-06-12] MEDS: ALPRAZolam 0.25 MG TAB PO PRN ×2 (12:53→20:17)
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
[2018-06-12 17:04] LABS: Glucose,Whole Blood 115 mg/dL (75-99)
[2018-06-12 20:03] LABS: Glucose,Whole Blood 207 mg/dL (75-99)
[2018-06-12] MEDS: CEFDINIR 300 MG CAP PO SCH (20:17)
[2018-06-12] MEDS: ATORVASTATIN 80 MG TAB PO SCH (20:17)
[2018-06-12] MEDS: HYDROmorphone 0.5 MG/0.5 ML SYRINGE IVP PRN (20:18)
[2018-06-13 06:59] LABS: Glucose,Whole Blood 100 mg/dL (75-99)
[2018-06-13] MEDS: INSULIN ASPART 100 UNIT/ML 1 ML 10 ML VIAL SQ SCH ×4 (07:31→21:03)
[2018-06-13] MEDS: IPRATROPIUM-ALBUTEROL 3 ML NEB INHALATION SCH ×4 (08:07→20:11)
[2018-06-13] MEDS: SYMBICORT 160-4.5 MCG INHALER INHALATION SCH ×2 (08:07→20:11)
[2018-06-13] MEDS: METOPROLOL SUCCINATE (ER) 50 MG TAB.ER.24H PO SCH (08:10)
[2018-06-13] MEDS: DONEPEZIL 5 MG TAB PO SCH (08:10)
[2018-06-13] MEDS: PRIMIDONE 50 MG TAB PO SCH ×3 (08:10→21:08)
[2018-06-13] MEDS: POTASSIUM CHLORIDE ER 20 MEQ TAB.ER PO SCH ×3 (08:10→15:15)
[2018-06-13] MEDS: LACOSAMIDE 50 MG TABLET PO SCH ×2 (08:10→21:08)
[2018-06-13] MEDS: SUCRALFATE 1 GM TAB PO SCH ×3 (08:10→17:33)
[2018-06-13] MEDS: CEFDINIR 300 MG CAP PO SCH ×2 (08:10→21:08)
[2018-06-13] MEDS: metroNIDAZOLE 500 MG TAB PO SCH ×3 (08:10→23:05)
[2018-06-13] MEDS: PARoxetine 20 MG TAB PO SCH (08:11)
[2018-06-13] MEDS: SPIRONOLACTONE 25 MG TAB PO SCH (08:11)
[2018-06-13] MEDS: FUROSEMIDE 40 MG TAB PO SCH ×2 (08:11→15:15)
[2018-06-13] MEDS: ASPIRIN 81 MG PO SCH (08:11)
[2018-06-13] MEDS: CYANOCOBALAMIN 500 MCG TAB PO SCH (08:11)
[2018-06-13 10:29] LABS: Anisocytosis Moderate; Basophils % (A) 0 %; Eosinophils # (A) 0.2 k/uL (0-0.7); Eosinophils % (A) 2 %; HCT 28.4 % (34.0-46.0); HGB 8.2 gm/dL (11.4-16.0); Hypochromasia Marked; Lymphocytes # (A) 1.6 k/uL (1.0-4.8); Lymphocytes % (A) 15 %; MCH 22.7 pg (25.0-35.0); MCV 78.5 fL (80.0-100.0); Mean Platelet Volume 6.9; Microcytosis Slight; Monocytes # (A) 0.7 k/uL (0-1.0); Monocytes % (A) 7 %; Neutrophils # (A) 7.9 k/uL (1.3-7.7); Neutrophils % (A) 74 %; Platelet Count 699 k/uL (150-450); Poikilocytosis Slight; RBC 3.62 m/uL (3.80-5.40); RDW 20.3 % (11.5-15.5); WBC 10.7 k/uL (3.8-10.6)
[2018-06-13 10:53] LABS: ALT 17 U/L (9-52); AST 25 U/L (14-36); Albumin 2.9 g/dL (3.5-5.0); Alkaline Phosphatase 59 U/L (38-126); Anion Gap 11 mmol/L; Blood Urea Nitrogen 11 mg/dL (7-17); Calcium 8.7 mg/dL (8.4-10.2); Carbon Dioxide 27 mmol/L (22-30); Chloride 100 mmol/L (98-107); Glucose 171 mg/dL (74-99); Magnesium 1.7 mg/dL (1.6-2.3); Potassium 3.4 mmol/L (3.5-5.1); Sodium 138 mmol/L (137-145); Total Bilirubin 0.2 mg/dL (0.2-1.3); Total Protein 5.8 g/dL (6.3-8.2)
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
[2018-06-13 11:38] LABS: Glucose,Whole Blood 125 mg/dL (75-99)
[2018-06-13] MEDS: PANTOPRAZOLE 40 MG TABLET PO SCH (13:06)
[2018-06-13 17:10] LABS: Glucose,Whole Blood 124 mg/dL (75-99)
[2018-06-13] MEDS: HYDROmorphone 0.5 MG/0.5 ML SYRINGE IVP PRN (17:20)
[2018-06-13 19:59] LABS: Glucose,Whole Blood 126 mg/dL (75-99)
[2018-06-13] MEDS: ATORVASTATIN 80 MG TAB PO SCH (21:08)
[2018-06-14] MEDS: ALPRAZolam 0.25 MG TAB PO PRN ×2 (03:10→13:01)
[2018-06-14 06:54] LABS: Glucose,Whole Blood 95 mg/dL (75-99)
[2018-06-14] MEDS: SYMBICORT 160-4.5 MCG INHALER INHALATION SCH (07:45)
[2018-06-14] MEDS: IPRATROPIUM-ALBUTEROL 3 ML NEB INHALATION SCH ×3 (07:45→15:58)
[2018-06-14] MEDS: INSULIN ASPART 100 UNIT/ML 1 ML 10 ML VIAL SQ SCH ×3 (08:49→17:55)
[2018-06-14] MEDS: metroNIDAZOLE 500 MG TAB PO SCH ×2 (09:26→18:07)
[2018-06-14] MEDS: SUCRALFATE 1 GM TAB PO SCH ×3 (09:26→17:35)
[2018-06-14] MEDS: FUROSEMIDE 40 MG TAB PO SCH ×2 (09:27→18:07)
[2018-06-14] MEDS: CEFDINIR 300 MG CAP PO SCH (09:27)
[2018-06-14] MEDS: POTASSIUM CHLORIDE ER 20 MEQ TAB.ER PO SCH (09:27)
[2018-06-14] MEDS: ASPIRIN 81 MG PO SCH (09:35)
[2018-06-14] MEDS: CYANOCOBALAMIN 500 MCG TAB PO SCH (09:35)
[2018-06-14] MEDS: LACOSAMIDE 50 MG TABLET PO SCH (09:36)
[2018-06-14] MEDS: DONEPEZIL 5 MG TAB PO SCH (09:36)
[2018-06-14] MEDS: METOPROLOL SUCCINATE (ER) 50 MG TAB.ER.24H PO SCH (09:37)
[2018-06-14] MEDS: SPIRONOLACTONE 25 MG TAB PO SCH (09:40)
[2018-06-14] MEDS: PRIMIDONE 50 MG TAB PO SCH ×2 (09:40→17:35)
[2018-06-14] MEDS: PARoxetine 20 MG TAB PO SCH (09:41)
[2018-06-14 10:13] LABS: ALT 20 U/L (9-52); AST 30 U/L (14-36); Albumin 3.4 g/dL (3.5-5.0); Alkaline Phosphatase 56 U/L (38-126); Anion Gap 9 mmol/L; Blood Urea Nitrogen 10 mg/dL (7-17); Calcium 9.1 mg/dL (8.4-10.2); Carbon Dioxide 30 mmol/L (22-30); Chloride 100 mmol/L (98-107); Glucose 139 mg/dL (74-99); Magnesium 1.6 mg/dL (1.6-2.3); Potassium 3.6 mmol/L (3.5-5.1); Sodium 139 mmol/L (137-145); Total Bilirubin 0.3 mg/dL (0.2-1.3); Total Protein 6.5 g/dL (6.3-8.2)
[2018-06-14 10:15] LABS: Prothrombin Time 10.6 sec (9.0-12.0)
[2018-06-14 10:16] LABS: Anisocytosis Moderate; Basophils # (A) 0.1 k/uL (0-0.2); Basophils % (A) 1 %; Eosinophils # (A) 0.3 k/uL (0-0.7); Eosinophils % (A) 2 %; HCT 32.2 % (34.0-46.0); HGB 8.9 gm/dL (11.4-16.0); Hypochromasia Marked; Lymphocytes # (A) 1.8 k/uL (1.0-4.8); Lymphocytes % (A) 14 %; MCH 21.6 pg (25.0-35.0); MCHC 27.7 g/dL (31.0-37.0); MCV 77.9 fL (80.0-100.0); Mean Platelet Volume 6.5; Microcytosis Moderate; Monocytes # (A) 1.1 k/uL (0-1.0); Monocytes % (A) 8 %; Neutrophils # (A) 9.3 k/uL (1.3-7.7); Neutrophils % (A) 71 %; Platelet Count 729 k/uL (150-450); Poikilocytosis Slight; RBC 4.13 m/uL (3.80-5.40); RDW 20.7 % (11.5-15.5)
--- NOTE | 2018-06-14 10:57 | P.PN ---
Progress Note - Text Progress Note Date: 06/14/18 Patient was cleared for discharge 06/12/2018. Discharge delayed due to insurance. She remains stable for discharge today to [facility] when insurance authorization is approved.
[2018-06-14 11:49] LABS: Glucose,Whole Blood 142 mg/dL (75-99)
[2018-06-14] MEDS: PANTOPRAZOLE 40 MG TABLET PO SCH (12:41)
[2018-06-14 13:28] VITALS: BP 122/65; RESP 19; TEMP 98.9
[2018-06-14 16:02] VITALS: PULSE 86
[2018-06-14 17:12] LABS: Glucose,Whole Blood 122 mg/dL (75-99)
== END 2018-06-14 18:50 | DRG 189 ==
LOC: EC 17:51 → 2SICU 23:48 → 3NMEDONC 06-02 16:51
PROVIDERS: ADMIT Family Medicine; ATTEND Family Medicine
PROC: 0DB78ZX Excision of Stomach, Pylorus, Via Natural or Artificial Opening Endoscopic, Diagnostic (ICD-10-PCS; principal; 2018-06-09 07:30)
DX: J96.21 Acute and chronic respiratory failure with hypoxia (principal); I50.43 Acute on chronic combined systolic (congestive) and diastolic (congestive) heart failure; J18.9 Pneumonia, unspecified organism; K75.0 Abscess of liver; A41.9 Sepsis, unspecified organism; R65.21 Severe sepsis with septic shock; K26.5 Chronic or unspecified duodenal ulcer with perforation; E87.3 Alkalosis; J44.0 Chronic obstructive pulmonary disease with (acute) lower respiratory infection; J44.1 Chronic obstructive pulmonary disease with (acute) exacerbation; K56.609 Unspecified intestinal obstruction, unspecified as to partial versus complete obstruction; K56.7 Ileus, unspecified; K82.1 Hydrops of gallbladder; R18.8 Other ascites; J96.22 Acute and chronic respiratory failure with hypercapnia; I11.0 Hypertensive heart disease with heart failure; D50.9 Iron deficiency anemia, unspecified; E16.2 Hypoglycemia, unspecified; E78.5 Hyperlipidemia, unspecified; E83.42 Hypomagnesemia; E87.6 Hypokalemia; F17.200 Nicotine dependence, unspecified, uncomplicated; F32.9 Major depressive disorder, single episode, unspecified; F41.1 Generalized anxiety disorder; I25.10 Atherosclerotic heart disease of native coronary artery without angina pectoris; I25.2 Old myocardial infarction; I27.29 Other secondary pulmonary hypertension; I73.9 Peripheral vascular disease, unspecified; K21.9 Gastro-esophageal reflux disease without esophagitis; K44.9 Diaphragmatic hernia without obstruction or gangrene; K52.9 Noninfective gastroenteritis and colitis, unspecified; K76.89 Other specified diseases of liver; K90.0 Celiac disease; M81.0 Age-related osteoporosis without current pathological fracture; I69.320 Aphasia following cerebral infarction; R79.1 Abnormal coagulation profile; Z87.820 Personal history of traumatic brain injury; Z66 Do not resuscitate; Z79.52 Long term (current) use of systemic steroids; Z79.82 Long term (current) use of aspirin; Z79.899 Other long term (current) drug therapy; Z82.49 Family history of ischemic heart disease and other diseases of the circulatory system; Z83.3 Family history of diabetes mellitus; Z85.3 Personal history of malignant neoplasm of breast; Z87.11 Personal history of peptic ulcer disease; Z91.19 Patient's noncompliance with other medical treatment and regimen; Z95.1 Presence of aortocoronary bypass graft; Z95.5 Presence of coronary angioplasty implant and graft; Z99.81 Dependence on supplemental oxygen; Z92.3 Personal history of irradiation
CPT/HCPCS: 36415; 36600; 43239; 51702; 71045; 71046; 71275; 74018; 74160; 74176; 74177; 78226; 80048; 80053; 81001; 82550; 82553; 82805; 83036; 83605; 83735; 83880; 84100; 84484; 85025; 85379; 85610; 85730; 86850; 86900; 86901; 86920; 87040; 87086; 88305; 93005; 94640; 94660; 94760; 96361; 96374; 96375; 99285

== ENCOUNTER 2018-07-05 12:16 | Inpatient (IN) | payer OTHER ==
[2018-07-05] MEDS ORDERED: ACETAMINOPHEN TAB 500 MG TAB PO STA (12:54)
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
--- NOTE | 2018-07-05 13:19 | XR ---
EXAMINATION TYPE: XR chest 2V DATE OF EXAM: 07/05/2018 COMPARISON: 06/01/2018 HISTORY: Shortness of breath TECHNIQUE: Frontal and lateral views of the chest are obtained. FINDINGS: Scattered senescent parenchymal changes noted. Hyperinflation compatible with COPD. Patchy right lower lobe infiltrate persists although appears to have improved. Heart size is stable. Mediastinal structures are stable and grossly unremarkable. No evidence for hilar prominence. Degenerative changes dorsal spine. IMPRESSION: 1. Patchy right lower lobe infiltrate persists although appears to have improved. Continued follow-up is recommended.
[2018-07-05 14:04] LABS: Anisocytosis Moderate; Basophils % (A) 0 %; Eosinophils # (A) 0.1 k/uL (0-0.7); Eosinophils % (A) 1 %; HCT 30.9 % (34.0-46.0); HGB 9.1 gm/dL (11.4-16.0); Hypochromasia Marked; Lymphocytes # (A) 1.7 k/uL (1.0-4.8); Lymphocytes % (A) 10 %; MCH 21.8 pg (25.0-35.0); MCHC 29.6 g/dL (31.0-37.0); MCV 73.8 fL (80.0-100.0); Mean Platelet Volume 6.6; Microcytosis Marked; Monocytes # (A) 1.6 k/uL (0-1.0); Monocytes % (A) 9 %; Neutrophils # (A) 13.8 k/uL (1.3-7.7); Neutrophils % (A) 79 %; Platelet Count 375 k/uL (150-450); Poikilocytosis Slight; RBC 4.18 m/uL (3.80-5.40); RDW 20.8 % (11.5-15.5); WBC 17.6 k/uL (3.8-10.6)
[2018-07-05 14:28] LABS: Partial Thromboplastin Time 28.7 sec (22.0-30.0)
[2018-07-05 14:32] LABS: Appearance,Urine Clear (Clear); Bilirubin,Urine Negative (Negative); Blood,Urine Large (Negative); Color,Urine Yellow; Glucose,Urine (UA) Negative (Negative); Ketones,Urine Negative (Negative); Leukocyte Esterase,Urine Trace (Negative); Nitrite,Urine Negative (Negative); Protein,Urine 1+ (Negative); RBC,Urine >182 /hpf (0-5); Urobilinogen,Urine <2.0 mg/dL (<2.0); WBC,Urine 5 /hpf (0-5)
[2018-07-05 14:55] LABS: Creatine Kinase MB 2.2 ng/mL (0.0-2.4); Troponin I 0.021 ng/mL (0.000-0.034)
[2018-07-05 15:21] LABS: ALT 17 U/L (9-52); AST 30 U/L (14-36); Albumin 3.5 g/dL (3.5-5.0); Alkaline Phosphatase 64 U/L (38-126); Anion Gap 10 mmol/L; Blood Urea Nitrogen 13 mg/dL (7-17); Calcium 8.2 mg/dL (8.4-10.2); Carbon Dioxide 32 mmol/L (22-30); Chloride 94 mmol/L (98-107); Glucose 110 mg/dL (74-99); Potassium 3.6 mmol/L (3.5-5.1); Sodium 136 mmol/L (137-145); Total Bilirubin 0.5 mg/dL (0.2-1.3); Total Protein 6.7 g/dL (6.3-8.2)
[2018-07-05] MEDS ORDERED: SODIUM CHLORIDE 0.9% 1,000 ML IV STA (15:24)
[2018-07-05] MEDS ORDERED: SODIUM CHLORIDE 0.9% 500 ML 500 ML IV STA (15:24)
[2018-07-05] MEDS ORDERED: PNEUMONIA PROTOCOL UTILIZED 1 EACH MISC PO PRN (15:33)
[2018-07-05] MEDS ORDERED: AZITHROMYCIN 500 MG in SODIUM CHLORIDE 0.9% 250 ML IVPB STA (15:33)
[2018-07-05] MEDS ORDERED: IPRATROPIUM-ALBUTEROL 3 ML NEB INHALATION PRN (15:33)
[2018-07-05] MEDS: IPRATROPIUM-ALBUTEROL 3 ML NEB INHALATION SCH ×2 (16:22→21:03)
[2018-07-05] MEDS: SODIUM CHLORIDE 0.9% 1,000 ML IV SCH (17:23)
[2018-07-05] MEDS: LACOSAMIDE 50 MG TABLET PO SCH (21:41)
[2018-07-05] MEDS: PRIMIDONE 50 MG TAB PO SCH (21:41)
[2018-07-05] MEDS: ATORVASTATIN 80 MG TAB PO SCH (21:42)
[2018-07-05] MEDS: PIPERACILLIN-TAZOBACTAM 3.375 GM in SODIUM CHLORIDE 0.9% 100 ML IVPB SCH (21:42)
[2018-07-05] MEDS: methylPREDNISolone SOD SUCCI 40 MG/ML 1 ML VIAL IV SCH (21:42)
[2018-07-05] MEDS: ACETAMINOPHEN TAB 325 MG TAB PO PRN (21:42)
[2018-07-06] MEDS: PIPERACILLIN-TAZOBACTAM 3.375 GM in SODIUM CHLORIDE 0.9% 100 ML IVPB SCH ×3 (05:58→21:02)
[2018-07-06] MEDS: ACETAMINOPHEN TAB 325 MG TAB PO PRN ×2 (05:58→21:03)
[2018-07-06] MEDS: SODIUM CHLORIDE 0.9% 1,000 ML IV SCH ×2 (06:01→17:06)
[2018-07-06] MEDS: methylPREDNISolone SOD SUCCI 40 MG/ML 1 ML VIAL IV SCH ×3 (06:01→21:03)
[2018-07-06] MEDS: SYMBICORT 160-4.5 MCG INHALER INHALATION SCH ×2 (08:01→20:25)
[2018-07-06] MEDS: IPRATROPIUM-ALBUTEROL 3 ML NEB INHALATION SCH ×4 (08:01→20:25)
[2018-07-06] MEDS: CYANOCOBALAMIN 500 MCG TAB PO SCH (10:31)
[2018-07-06] MEDS: PARoxetine 20 MG TAB PO SCH (10:31)
[2018-07-06] MEDS: ASPIRIN 81 MG PO SCH (10:32)
[2018-07-06] MEDS: LACOSAMIDE 50 MG TABLET PO SCH ×2 (10:32→21:02)
[2018-07-06] MEDS: METOPROLOL SUCCINATE (ER) 50 MG TAB.ER.24H PO SCH (10:32)
[2018-07-06] MEDS: CLOPIDOGREL 75 MG TAB PO SCH (10:32)
[2018-07-06] MEDS: PANTOPRAZOLE 40 MG TABLET PO SCH (10:32)
[2018-07-06] MEDS: FUROSEMIDE 40 MG TAB PO SCH ×2 (10:32→17:05)
[2018-07-06] MEDS: SPIRONOLACTONE 25 MG TAB PO SCH (10:32)
[2018-07-06] MEDS: FAMOTIDINE 20 MG TAB PO SCH (10:32)
[2018-07-06] MEDS: DONEPEZIL 5 MG TAB PO SCH (10:33)
[2018-07-06] MEDS: PRIMIDONE 50 MG TAB PO SCH ×3 (10:33→21:02)
[2018-07-06] MEDS: FLUDROCORTISONE 0.1 MG TAB PO SCH (10:33)
[2018-07-06] MEDS: POTASSIUM CHLORIDE ER 20 MEQ TAB.ER PO SCH (10:43)
--- NOTE | 2018-07-06 11:25 | XR ---
EXAMINATION TYPE: XR chest 2V DATE OF EXAM: 07/06/2018 COMPARISON: 07/05/2018 INDICATION: Pneumonia TECHNIQUE: Frontal and lateral views of the chest are obtained. FINDINGS: The heart size is normal. The pulmonary vasculature is normal. Mild right mid and lower lung field infiltrate is present. This is worsening from comparison. Correla te for pneumonia.. Sternotomy wires are present from prior cardiac valve surgery. IMPRESSION: 1. Worsening mild right lower lobe infiltrate.
[2018-07-06] MEDS ORDERED: AZITHROMYCIN 500 MG TAB PO SCH (16:00)
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
[2018-07-06] MEDS: ATORVASTATIN 80 MG TAB PO SCH (21:02)
[2018-07-07] MEDS: SODIUM CHLORIDE 0.9% 1,000 ML IV SCH ×3 (05:56→17:30)
[2018-07-07] MEDS: methylPREDNISolone SOD SUCCI 40 MG/ML 1 ML VIAL IV SCH ×3 (06:18→19:41)
[2018-07-07] MEDS: PIPERACILLIN-TAZOBACTAM 3.375 GM in SODIUM CHLORIDE 0.9% 100 ML IVPB SCH ×3 (06:19→19:42)
[2018-07-07 06:26] LABS: Glucose,Whole Blood 119 mg/dL (75-99)
[2018-07-07] MEDS: SYMBICORT 160-4.5 MCG INHALER INHALATION SCH ×2 (08:31→21:07)
[2018-07-07] MEDS: IPRATROPIUM-ALBUTEROL 3 ML NEB INHALATION SCH ×4 (08:31→21:07)
[2018-07-07] MEDS: INSULIN ASPART 100 UNIT/ML 1 ML 10 ML VIAL SQ SCH ×4 (08:45→20:52)
[2018-07-07] MEDS: ACETAMINOPHEN TAB 325 MG TAB PO PRN (09:16)
[2018-07-07] MEDS: PRIMIDONE 50 MG TAB PO SCH ×3 (11:03→21:18)
[2018-07-07] MEDS: POTASSIUM CHLORIDE ER 20 MEQ TAB.ER PO SCH (11:03)
[2018-07-07] MEDS: PROPRANOLOL 40 MG TAB PO SCH ×2 (11:04→19:41)
[2018-07-07] MEDS: CLOPIDOGREL 75 MG TAB PO SCH (11:07)
[2018-07-07] MEDS: ASPIRIN 81 MG PO SCH (11:07)
[2018-07-07] MEDS: CYANOCOBALAMIN 500 MCG TAB PO SCH (11:08)
[2018-07-07] MEDS: DONEPEZIL 5 MG TAB PO SCH (11:10)
[2018-07-07] MEDS: FLUDROCORTISONE 0.1 MG TAB PO SCH (11:11)
[2018-07-07] MEDS: FAMOTIDINE 20 MG TAB PO SCH (11:11)
[2018-07-07] MEDS: FUROSEMIDE 40 MG TAB PO SCH ×2 (11:12→17:30)
[2018-07-07] MEDS: METOPROLOL SUCCINATE (ER) 50 MG TAB.ER.24H PO SCH (11:12)
[2018-07-07] MEDS: LACOSAMIDE 50 MG TABLET PO SCH ×2 (11:12→19:41)
[2018-07-07] MEDS: PANTOPRAZOLE 40 MG TABLET PO SCH (11:13)
[2018-07-07] MEDS: SPIRONOLACTONE 25 MG TAB PO SCH (11:20)
[2018-07-07] MEDS: PARoxetine 20 MG TAB PO SCH (11:21)
[2018-07-07 11:48] LABS: Glucose,Whole Blood 120 mg/dL (75-99)
[2018-07-07] MEDS ORDERED: ALPRAZolam 0.5 MG TAB PO STA (12:30)
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
[2018-07-07 16:25] LABS: Glucose,Whole Blood 221 mg/dL (75-99)
[2018-07-07] MEDS: ATORVASTATIN 80 MG TAB PO SCH (19:41)
[2018-07-07 20:51] LABS: Glucose,Whole Blood 94 mg/dL (75-99)
[2018-07-08] MEDS: methylPREDNISolone SOD SUCCI 40 MG/ML 1 ML VIAL IV SCH ×3 (04:51→22:22)
[2018-07-08] MEDS: PIPERACILLIN-TAZOBACTAM 3.375 GM in SODIUM CHLORIDE 0.9% 100 ML IVPB SCH ×3 (04:51→22:27)
[2018-07-08] MEDS: SODIUM CHLORIDE 0.9% 1,000 ML IV SCH ×2 (04:52→22:21)
[2018-07-08 06:40] LABS: Glucose,Whole Blood 104 mg/dL (75-99)
[2018-07-08] MEDS: INSULIN ASPART 100 UNIT/ML 1 ML 10 ML VIAL SQ SCH ×4 (06:42→22:27)
[2018-07-08 07:12] LABS: Anisocytosis Moderate; Basophils % (A) 0 %; Eosinophils % (A) 0 %; HCT 31.9 % (34.0-46.0); HGB 9.2 gm/dL (11.4-16.0); Hypochromasia Marked; Lymphocytes # (A) 1.1 k/uL (1.0-4.8); Lymphocytes % (A) 10 %; MCH 22.4 pg (25.0-35.0); MCHC 28.8 g/dL (31.0-37.0); MCV 77.9 fL (80.0-100.0); Mean Platelet Volume 6.5; Microcytosis Moderate; Monocytes # (A) 0.4 k/uL (0-1.0); Monocytes % (A) 4 %; Neutrophils % (A) 83 %; Platelet Count 478 k/uL (150-450); Poikilocytosis Slight; RBC 4.09 m/uL (3.80-5.40); RDW 20.5 % (11.5-15.5); WBC 10.8 k/uL (3.8-10.6)
[2018-07-08 07:47] LABS: Anion Gap 8 mmol/L; Blood Urea Nitrogen 16 mg/dL (7-17); Calcium 8.4 mg/dL (8.4-10.2); Carbon Dioxide 32 mmol/L (22-30); Chloride 100 mmol/L (98-107); Glucose 107 mg/dL (74-99); Potassium 3.8 mmol/L (3.5-5.1); Sodium 140 mmol/L (137-145)
[2018-07-08] MEDS: PANTOPRAZOLE 40 MG TABLET PO SCH (08:47)
[2018-07-08] MEDS: LACOSAMIDE 50 MG TABLET PO SCH ×2 (08:47→22:23)
[2018-07-08] MEDS: SPIRONOLACTONE 25 MG TAB PO SCH (08:47)
[2018-07-08] MEDS: FUROSEMIDE 40 MG TAB PO SCH ×2 (08:47→22:22)
[2018-07-08] MEDS: FLUDROCORTISONE 0.1 MG TAB PO SCH (08:47)
[2018-07-08] MEDS: METOPROLOL SUCCINATE (ER) 50 MG TAB.ER.24H PO SCH (08:47)
[2018-07-08] MEDS: PRIMIDONE 50 MG TAB PO SCH ×3 (08:47→22:26)
[2018-07-08] MEDS: ASPIRIN 81 MG PO SCH (08:47)
[2018-07-08] MEDS: FAMOTIDINE 20 MG TAB PO SCH (08:47)
[2018-07-08] MEDS: POTASSIUM CHLORIDE ER 20 MEQ TAB.ER PO SCH (08:47)
[2018-07-08] MEDS: CLOPIDOGREL 75 MG TAB PO SCH (08:47)
[2018-07-08] MEDS: PARoxetine 20 MG TAB PO SCH (08:47)
[2018-07-08] MEDS: PROPRANOLOL 40 MG TAB PO SCH ×2 (08:47→22:23)
[2018-07-08] MEDS: DONEPEZIL 5 MG TAB PO SCH (08:48)
[2018-07-08] MEDS: CYANOCOBALAMIN 500 MCG TAB PO SCH (08:48)
[2018-07-08] MEDS: SYMBICORT 160-4.5 MCG INHALER INHALATION SCH ×2 (09:08→22:52)
[2018-07-08] MEDS: IPRATROPIUM-ALBUTEROL 3 ML NEB INHALATION SCH ×3 (09:08→22:52)
[2018-07-08 11:08] LABS: Glucose,Whole Blood 121 mg/dL (75-99)
--- NOTE | 2018-07-08 18:45 | PN ---
PROGRESS NOTE The patient is seen today July 08, 2018 in followup on the selective care unit. She is currently awake and alert, in no acute distress. She continues to utilize the BiPAP nightly. She is currently on nasal cannula. She is better today as compared to yesterday. Still somewhat bronchospastic and wheezy on exertion. PHYSICAL EXAMINATION: On physical exam, she is alert and oriented, in no acute distress. She is frail and quite cachetic. Vital signs are stable. Her head is normocephalic. Sclerae anicteric. Her neck is supple. Trachea midline. Her lungs have bilateral scattered rhonchi, end expiratory wheeze, diminished. Her heart is regular S1, S2. Her abdomen is soft, nontender. Bowel sounds are present. There is no significant peripheral edema. No clubbing. No cyanosis. Peripheral pulses are intact. INVESTIGATIONS: Reviewed. MEDICATIONS: Reviewed. IMPRESSION: 1. Acute exacerbation of severe oxygen-dependent chronic obstructive pulmonary disease with acute on chronic hypoxic/hypercapnic respiratory failure. 2. Protein-calorie malnutrition. PLAN: The patient was seen and evaluated by Dr. Ordonez. She is currently stable from the pulmonary standpoint. Continued to utilize BiPAP during the evenings and throughout the day while napping. Continue with her current treatment plan. Increase her activity as tolerated. Will continue to follow. I, the cosigning physician, performed a history and physical examination on the patient. Lung sounds with bilateral end-expiratory wheeze, diminished. Maintaining O2 saturations alternating between BiPAP and nasal cannula. I discussed the assessment and plan of care with my nurse practitioner, Katarina Levin. I attest to the above note as dictated by her. MMODL / IJN: [id number] /
[2018-07-08 18:47] LABS: Glucose,Whole Blood 158 mg/dL (75-99)
[2018-07-08 19:38] LABS: Glucose,Whole Blood 203 mg/dL (75-99)
[2018-07-08] MEDS: ATORVASTATIN 80 MG TAB PO SCH (22:23)
[2018-07-09] MEDS: SODIUM CHLORIDE 0.9% 1,000 ML IV SCH ×2 (01:52→09:26)
[2018-07-09] MEDS: methylPREDNISolone SOD SUCCI 40 MG/ML 1 ML VIAL IV SCH (04:30)
[2018-07-09] MEDS: PIPERACILLIN-TAZOBACTAM 3.375 GM in SODIUM CHLORIDE 0.9% 100 ML IVPB SCH ×3 (06:04→20:13)
[2018-07-09 06:11] LABS: Glucose,Whole Blood 129 mg/dL (75-99)
[2018-07-09] MEDS: INSULIN ASPART 100 UNIT/ML 1 ML 10 ML VIAL SQ SCH ×4 (06:20→21:03)
[2018-07-09 07:14] LABS: Anisocytosis Moderate; Basophils % (A) 0 %; Eosinophils % (A) 0 %; HCT 34.6 % (34.0-46.0); HGB 9.7 gm/dL (11.4-16.0); Hypochromasia Marked; Lymphocytes # (A) 1.4 k/uL (1.0-4.8); Lymphocytes % (A) 13 %; MCH 21.6 pg (25.0-35.0); MCHC 27.9 g/dL (31.0-37.0); MCV 77.1 fL (80.0-100.0); Mean Platelet Volume 6.4; Microcytosis Moderate; Monocytes # (A) 0.8 k/uL (0-1.0); Monocytes % (A) 7 %; Neutrophils % (A) 76 %; Platelet Count 565 k/uL (150-450); RBC 4.48 m/uL (3.80-5.40); RDW 20.6 % (11.5-15.5); WBC 10.6 k/uL (3.8-10.6)
[2018-07-09 07:16] LABS: Anion Gap 8 mmol/L; Blood Urea Nitrogen 21 mg/dL (7-17); Calcium 8.8 mg/dL (8.4-10.2); Carbon Dioxide 33 mmol/L (22-30); Chloride 98 mmol/L (98-107); Glucose 119 mg/dL (74-99); Potassium 3.9 mmol/L (3.5-5.1); Sodium 139 mmol/L (137-145)
[2018-07-09] MEDS: IPRATROPIUM-ALBUTEROL 3 ML NEB INHALATION SCH ×4 (08:30→19:04)
[2018-07-09] MEDS: SYMBICORT 160-4.5 MCG INHALER INHALATION SCH ×2 (08:30→19:04)
[2018-07-09] MEDS: FLUDROCORTISONE 0.1 MG TAB PO SCH (09:24)
[2018-07-09] MEDS: DONEPEZIL 5 MG TAB PO SCH (09:24)
[2018-07-09] MEDS: SPIRONOLACTONE 25 MG TAB PO SCH (09:24)
[2018-07-09] MEDS: PROPRANOLOL 40 MG TAB PO SCH ×2 (09:24→20:16)
[2018-07-09] MEDS: CLOPIDOGREL 75 MG TAB PO SCH (09:25)
[2018-07-09] MEDS: CYANOCOBALAMIN 500 MCG TAB PO SCH (09:25)
[2018-07-09] MEDS: FUROSEMIDE 40 MG TAB PO SCH ×2 (09:25→17:51)
[2018-07-09] MEDS: ASPIRIN 81 MG PO SCH (09:25)
[2018-07-09] MEDS: METOPROLOL SUCCINATE (ER) 50 MG TAB.ER.24H PO SCH (09:25)
[2018-07-09] MEDS: PARoxetine 20 MG TAB PO SCH (09:25)
[2018-07-09] MEDS: PRIMIDONE 50 MG TAB PO SCH ×3 (09:26→21:03)
[2018-07-09] MEDS: FAMOTIDINE 20 MG TAB PO SCH (09:26)
[2018-07-09] MEDS: PANTOPRAZOLE 40 MG TABLET PO SCH (09:26)
[2018-07-09] MEDS: POTASSIUM CHLORIDE ER 20 MEQ TAB.ER PO SCH (09:26)
[2018-07-09] MEDS: LACOSAMIDE 50 MG TABLET PO SCH ×2 (09:26→20:13)
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
[2018-07-09 10:54] LABS: Glucose,Whole Blood 138 mg/dL (75-99)
--- NOTE | 2018-07-09 11:55 | P.PN ---
Subjective Progress Note Date: 07/08/18 Principal diagnosis: Right lower lobe pneumonia Patient awake alert, breath sounds improved but diffuse rhonchi and wheezes noted. Sats on 4 L nasal cannula are in the low 90s, patient is more willingly using BiPAP at night and throughout the day which is quite encouraging, however she's made it known that she is back home with her he still smokes, and apparently there are 3 cats living at home that weren't there when she was placed in inpatient rehab. Blood and urine cultures negative, patient still on Rocephin and Zosyn as well as IV steroids. She is also getting nebulized bronchodilators, during episode of anxiety she desatted and pulmonary gave her a one-time dose of anxiolytic, she was placed on BiPAP and everything improved. Objective - Vital Signs Vital signs: Vital Signs Temp 98.0 F 07/09/18 07:50 Pulse 76 07/09/18 08:42 Resp 18 07/09/18 07:50 BP 136/80 07/09/18 07:50 Pulse Ox 97 07/09/18 07:50 Intake & Output 07/08/18 07/09/18 07/09/18 18:59 06:59 18:59 Intake Total 360 2196 480 Balance 360 2196 480 Weight 47.2 kg Intake: Intake, IV Titration 1100 Amount Piperacillin-Tazobactam 3 100 .375 gm In Sodium Chloride 0.9% 100 ml @ 25 mls/hr IVPB Q8H [facility] Rx#: [id number] Sodium Chloride 0.9% 1, 1000 000 ml @ 100 mls/hr IV . Q10H [facility] Rx#:[id number] Oral 360 1096 480 Other: Voiding Method Bedside Commode Bedside Commode Bedside Commode Incontinent Incontinent # Voids 2 - Exam General: [Patient awake, alert and oriented times 3. Patient in no acute distress.] HEENT: [PERRL. EOMI. No pharyngeal erythema or exudate.] Neck: [No adenopathy.] Cardiac: [Heart regular in rate and rhythm. Midline surgical incision, opening snap secondary to valve replacement Lungs: [Clear to auscultation bilaterally.] Abdomen: [No mass. No organomegaly. Bowel sounds presnt and normoactive in all 4 quadrants.] Extremes: [No edema no cyanosis no claudication normal pulses] : [] Musculoskeletal: [No joint erythema, edema or tenderness.] Skin: [No rash.] Neurologic: [No lateralizing deficits. CN II - XII grossly intact.] Lymphatic: [No adenopathy.] - Labs CBC & Chem 7: 07/09/18 06:18 07/09/18 06:18 Labs: Abnormal Lab Results - Last 24 Hours (Table) 07/08/18 07/08/18 07/08/18 Range/Units 11:06 17:23 19:36 Hgb (11.4-16.0) gm/dL MCV (80.0-100.0) fL MCH (25.0-35.0) pg MCHC (31.0-37.0) g/dL RDW (11.5-15.5) % Plt Count (150-450) k/uL Neutrophils # (1.3-7.7) k/uL Carbon Dioxide (22-30) mmol/L BUN (7-17) mg/dL Glucose (74-99) mg/dL POC Glucose (mg/dL) 121 H 158 H 203 H (75-99) mg/dL 07/09/18 07/09/18 07/09/18 Range/Units 06:09 06:18 06:18 Hgb 9.7 L (11.4-16.0) gm/dL MCV 77.1 L (80.0-100.0) fL MCH 21.6 L (25.0-35.0) pg MCHC 27.9 L (31.0-37.0) g/dL RDW 20.6 H (11.5-15.5) % Plt Count 565 H (150-450) k/uL Neutrophils # 8.0 H (1.3-7.7) k/uL Carbon Dioxide 33 H (22-30) mmol/L BUN 21 H (7-17) mg/dL Glucose 119 H (74-99) mg/dL POC Glucose (mg/dL) 129 H (75-99) mg/dL 07/09/18 Range/Units 10:53 Hgb (11.4-16.0) gm/dL MCV (80.0-100.0) fL MCH (25.0-35.0) pg MCHC (31.0-37.0) g/dL RDW (11.5-15.5) % Plt Count (150-450) k/uL Neutrophils # (1.3-7.7) k/uL Carbon Dioxide (22-30) mmol/L BUN (7-17) mg/dL Glucose (74-99) mg/dL POC Glucose (mg/dL) 138 H (75-99) mg/dL Microbiology - Last 24 Hours (Table) 07/05/18 12:45 Blood Culture - Preliminary Blood No Growth after 72 hours Assessment and Plan Assessment: Known history of coronary artery disease cancer heart failure COPD gastroesophageal reflux she have bleeding by history hyperlipidemia hypertension and myocardial infarction pneumonia respiratory disorders vascular disorder The patient presents today with right lower lobe infiltrate COPD acute exacerbation Patient was started on IV antibiotics Zosyn Rocephin Solu-Medrol IV Anticipate evaluation by pulmonary medicine We will reevaluate in am Time with Patient: Greater than 30
--- NOTE | 2018-07-09 12:00 | P.PN ---
Subjective Progress Note Date: 07/09/18 Principal diagnosis: Right lower lobe pneumonia Patient awake alert, breath sounds improved but diffuse rhonchi and wheezes noted. Sats on 4 L nasal cannula are in the low 90s, patient is more willingly using BiPAP at night and throughout the day which is quite encouraging, however she's made it known that she is back home with her he still smokes, and apparently there are 3 cats living at home that weren't there when she was placed in inpatient rehab. Blood and urine cultures negative, patient still on Rocephin and Zosyn as well as IV steroids. She is also getting nebulized bronchodilators, during episode of anxiety she desatted and pulmonary gave her a one-time dose of anxiolytic, she was placed on BiPAP and everything improved. 07/09/2018 Computers were down better part of the day yesterday was unable to perform note above note was yesterday's, Today patient is awake alert up in chair very jovial mood states that the clipper machine told her she probably be going home tomorrow. Breath sounds were significantly improved. White count is 10.6 hemoglobin 9.7 potassium is 3.9 CO2 was 33 BUN is 21 and creatinine is 0.8. This patient is a rally a nicely, anticipate discharge in the next 24 hours, incidentally patient still on IV Zosyn IV steroids and nebulized bronchodilators Objective - Vital Signs Vital signs: Vital Signs Temp 98.0 F 07/09/18 07:50 Pulse 76 07/09/18 08:42 Resp 18 07/09/18 07:50 BP 136/80 07/09/18 07:50 Pulse Ox 97 07/09/18 07:50 Intake & Output 07/08/18 07/09/18 07/09/18 18:59 06:59 18:59 Intake Total 360 2196 480 Balance 360 2196 480 Weight 47.2 kg Intake: Intake, IV Titration 1100 Amount Piperacillin-Tazobactam 3 100 .375 gm In Sodium Chloride 0.9% 100 ml @ 25 mls/hr IVPB Q8H [facility] Rx#: [id number] Sodium Chloride 0.9% 1, 1000 000 ml @ 100 mls/hr IV . Q10H [facility] Rx#:[id number] Oral 360 1096 480 Other: Voiding Method Bedside Commode Bedside Commode Bedside Commode Incontinent Incontinent # Voids 2 - Exam General: [Patient awake, alert and oriented times 3. Patient in no acute distress.] HEENT: [PERRL. EOMI. No pharyngeal erythema or exudate.] Neck: [No adenopathy.] Cardiac: [Heart regular in rate and rhythm. Midline surgical incision, opening snap secondary to valve replacement Lungs: Diminished bilaterally, improved minimal expiration [place] Abdomen: [No mass. No organomegaly. Bowel sounds presnt and normoactive in all 4 quadrants.] Extremes: [No edema no cyanosis no claudication normal pulses] : [] Musculoskeletal: [No joint erythema, edema or tenderness.] Skin: [No rash.] Neurologic: [No lateralizing deficits. CN II - XII grossly intact.] Lymphatic: [No adenopathy.] - Labs CBC & Chem 7: 07/09/18 06:18 07/09/18 06:18 Labs: Abnormal Lab Results - Last 24 Hours (Table) 07/08/18 07/08/18 07/09/18 Range/Units 17:23 19:36 06:09 Hgb (11.4-16.0) gm/dL MCV (80.0-100.0) fL MCH (25.0-35.0) pg MCHC (31.0-37.0) g/dL RDW (11.5-15.5) % Plt Count (150-450) k/uL Neutrophils # (1.3-7.7) k/uL Carbon Dioxide (22-30) mmol/L BUN (7-17) mg/dL Glucose (74-99) mg/dL POC Glucose (mg/dL) 158 H 203 H 129 H (75-99) mg/dL 07/09/18 07/09/18 07/09/18 Range/Units 06:18 06:18 10:53 Hgb 9.7 L (11.4-16.0) gm/dL MCV 77.1 L (80.0-100.0) fL MCH 21.6 L (25.0-35.0) pg MCHC 27.9 L (31.0-37.0) g/dL RDW 20.6 H (11.5-15.5) % Plt Count 565 H (150-450) k/uL Neutrophils # 8.0 H (1.3-7.7) k/uL Carbon Dioxide 33 H (22-30) mmol/L BUN 21 H (7-17) mg/dL Glucose 119 H (74-99) mg/dL POC Glucose (mg/dL) 138 H (75-99) mg/dL Microbiology - Last 24 Hours (Table) 07/05/18 12:45 Blood Culture - Preliminary Blood No Growth after 72 hours Assessment and Plan Assessment: Known history of coronary artery disease cancer heart failure COPD gastroesophageal reflux she have bleeding by history hyperlipidemia hypertension and myocardial infarction pneumonia respiratory disorders vascular disorder The patient presents today with right lower lobe infiltrate COPD acute exacerbation Patient was started on IV antibiotics Zosyn Rocephin Solu-Medrol IV Anticipate discharge in the next 24-48 hours
[2018-07-09 16:36] LABS: Glucose,Whole Blood 141 mg/dL (75-99)
[2018-07-09] MEDS: ATORVASTATIN 80 MG TAB PO SCH (20:13)
[2018-07-09 20:32] LABS: Glucose,Whole Blood 118 mg/dL (75-99)
[2018-07-09] MEDS: ACETAMINOPHEN TAB 325 MG TAB PO PRN (22:14)
[2018-07-10] MEDS: PIPERACILLIN-TAZOBACTAM 3.375 GM in SODIUM CHLORIDE 0.9% 100 ML IVPB SCH ×2 (04:55→13:31)
[2018-07-10 06:01] LABS: Glucose,Whole Blood 119 mg/dL (75-99)
[2018-07-10 06:03] LABS: Anisocytosis Moderate; Basophils % (A) 0 %; Eosinophils # (A) 0.4 k/uL (0-0.7); Eosinophils % (A) 4 %; HCT 28.7 % (34.0-46.0); HGB 8.5 gm/dL (11.4-16.0); Hypochromasia Marked; Lymphocytes # (A) 2.8 k/uL (1.0-4.8); Lymphocytes % (A) 27 %; MCH 22.1 pg (25.0-35.0); MCHC 29.6 g/dL (31.0-37.0); MCV 74.9 fL (80.0-100.0); Mean Platelet Volume 7.1; Microcytosis Moderate; Monocytes # (A) 1.1 k/uL (0-1.0); Monocytes % (A) 10 %; Neutrophils # (A) 5.8 k/uL (1.3-7.7); Neutrophils % (A) 55 %; Platelet Count 466 k/uL (150-450); RBC 3.84 m/uL (3.80-5.40); RDW 20.7 % (11.5-15.5); WBC 10.5 k/uL (3.8-10.6)
[2018-07-10] MEDS: INSULIN ASPART 100 UNIT/ML 1 ML 10 ML VIAL SQ SCH ×4 (06:08→20:55)
[2018-07-10 06:24] LABS: Anion Gap 5 mmol/L; Blood Urea Nitrogen 18 mg/dL (7-17); Calcium 8.4 mg/dL (8.4-10.2); Carbon Dioxide 37 mmol/L (22-30); Chloride 95 mmol/L (98-107); Glucose 99 mg/dL (74-99); Potassium 3.3 mmol/L (3.5-5.1); Sodium 137 mmol/L (137-145)
[2018-07-10] MEDS: SYMBICORT 160-4.5 MCG INHALER INHALATION SCH ×2 (08:01→19:43)
[2018-07-10] MEDS: IPRATROPIUM-ALBUTEROL 3 ML NEB INHALATION SCH ×4 (08:01→19:43)
[2018-07-10] MEDS: METOPROLOL SUCCINATE (ER) 50 MG TAB.ER.24H PO SCH (08:19)
[2018-07-10] MEDS: FUROSEMIDE 40 MG TAB PO SCH ×2 (08:19→16:58)
[2018-07-10] MEDS: LACOSAMIDE 50 MG TABLET PO SCH ×2 (08:20→19:36)
[2018-07-10] MEDS: CLOPIDOGREL 75 MG TAB PO SCH (08:20)
[2018-07-10] MEDS: CYANOCOBALAMIN 500 MCG TAB PO SCH (08:20)
[2018-07-10] MEDS: FAMOTIDINE 20 MG TAB PO SCH (08:20)
[2018-07-10] MEDS: predniSONE 20 MG TAB PO SCH (08:20)
[2018-07-10] MEDS: SPIRONOLACTONE 25 MG TAB PO SCH (08:20)
[2018-07-10] MEDS: PRIMIDONE 50 MG TAB PO SCH ×3 (08:20→19:36)
[2018-07-10] MEDS: FLUDROCORTISONE 0.1 MG TAB PO SCH (08:20)
[2018-07-10] MEDS: PANTOPRAZOLE 40 MG TABLET PO SCH (08:20)
[2018-07-10] MEDS: DONEPEZIL 5 MG TAB PO SCH (08:21)
[2018-07-10] MEDS: ASPIRIN 81 MG PO SCH (08:21)
[2018-07-10] MEDS: PARoxetine 20 MG TAB PO SCH (08:21)
[2018-07-10] MEDS: PROPRANOLOL 40 MG TAB PO SCH ×2 (08:21→20:31)
[2018-07-10] MEDS: POTASSIUM CHLORIDE ER 20 MEQ TAB.ER PO SCH (08:21)
--- NOTE | 2018-07-10 10:13 | P.PN ---
Progress Note - Text Patient was on the bedside commode while being briefly examined today. She is ready to go home. When he and pulmonology recommendations before discharge.
[2018-07-10 11:42] LABS: Glucose,Whole Blood 129 mg/dL (75-99)
--- NOTE | 2018-07-10 12:37 | P.DS ---
Providers Date of admission: 07/05/18 15:33 Expected date of discharge: 07/10/18 Attending physician: Duarte Figueredo Consults: 07/05/18 15:33 Consult Physician Routine Consulting Provider: Supriya Ordonez Consult Reason/Comments: Pneumonia, sepsis Do you want consulting provider notified?: Yes Primary care physician: Duarte Figueredo - Discharge Diagnosis(es) (1) Acute respiratory failure with hypoxia and hypercarbia Current Visit: Yes Status: Acute (2) COPD (chronic obstructive pulmonary disease) Current Visit: Yes Status: Acute (3) Pneumonia Current Visit: Yes Status: Acute (4) Abnormal chest xray Current Visit: No Status: Acute (5) Acute respiratory failure with hypoxia Current Visit: No Status: Acute (6) Anxiety Current Visit: No Status: Acute (7) CAD (coronary artery disease) Current Visit: No Status: Acute (8) COPD (chronic obstructive pulmonary disease) Current Visit: No Status: Acute (9) High risk for readmission Current Visit: No Status: Acute (10) History of myocardial infarction Current Visit: No Status: Acute (11) Nonadherence to medication Current Visit: No Status: Acute (12) On home oxygen therapy Current Visit: No Status: Acute (13) Pneumonia Current Visit: No Status: Acute (14) Hyperlipidemia Current Visit: No Status: Chronic (15) Hypertension Current Visit: No Status: Chronic (16) Systolic congestive heart failure Current Visit: No Status: Chronic Onset Date: 07/14/14 Hospital Course: This is a 62-year-old white female patient of Dr. Figueredo, with history of severe end-stage COPD, chronic hypoxic and hypercapnic respiratory failure, on home oxygen, and home BiPAP, hemorrhagic CVA, chronic congestive heart failure, expressive aphasia related to her CVA, coronary artery disease, hypertension, hyperlipidemia, previous episodes of myocardial infarction, numerous episodes of pneumonia and tracheobronchitis, and GI bleeding. She has had numerous previous admissions for complications related to COPD, CHF, and pneumonias. Patient was brought into the emergency department on 07/05/2018 for cough, fever. Patient is a poor historian,due to expressive aphasia and is known o be poorly compliant. She did have a fever on presentation, with a temp of 101.9 degrees Fahrenheit. She has been living at home, she was in [facility] after her last hospitalization. Pumonology was conbsullted. Initial chest x-ray showed patchy right lower lobe infiltrate, and this was compared to her last chest x-ray on 06/01/2018, improved from previous exam. proBNP was 2060, Influenza screen was negative. Patient was started on a combination of Zithromax and Rocephin, nebulized bronchodilators. repeat chest x-ray shows worsening of the mid right lower lobe infiltrates. 07/06/2018 Clinically patient is afebrile, she is sitting up in bed, in no acute distress. Currently on 4 L per nasal cannula her O2 sat is 94%. 07/07/2018 patient on 4 L per nasal cannula, patient has been wearing the BiPAP at night, and as needed during the day, that morning she had episode of respiratory distress after going to the bathroom, was hyperventilating, and quite dyspneic, and was placed on BiPAP support and subsequently she recovered, she is not bringing up much sputum, no fever or chills. Blood and urine cultures are negative, no new chest x-rays today, patient continues on a combination of Rocephin and Zosyn, IV steroids, nebulized bronchodilators. She did have an episode of anxiety, became quite dyspneic with a, dose of Xanax was given and patient was placed back on BiPAP support, she is on oral Lasix. 07/09/2018 patient on 4 L per nasal cannula, with a sat of 97%, she is afebrile, vital signs are stable, she is ambulating to the bathroom and about the room, tolerating activity well, lung sounds are essentially clear on today's examination. No wheezes, no rhonchi or rales. Blood and urine cultures were negative. Antibiotic coverage in the form of Zosyn, no fever or chills, oral Lasix, nebulized bronchodilators, and IV steroids. 07/10/2018 Pt doing well. She will be sent home. Patient Condition at Discharge: Serious Plan - Discharge Summary Discharge Rx Participant: No New Discharge Prescriptions: New predniSONE See Taper PO DAILY #90 tab predniSONE See Taper PO DAILY #90 tab Continue Albuterol Nebulized [Ventolin Nebulized] 2.5 mg INHALATION RT-QID PARoxetine HCL 60 mg PO DAILY Metoprolol Succinate (ER) [Toprol XL] 50 mg PO DAILY Primidone [Mysoline] 50 mg PO TID Atorvastatin [Lipitor] 80 mg PO HS tab Fludrocortisone [Florinef] 0.1 mg PO DAILY tab rOPINIRole HCL [Requip] 1 mg PO DAILY tab Famotidine [Pepcid] 20 mg PO DAILY Aspirin 81 mg PO DAILY #30 chewable Spironolactone 12.5 mg PO DAILY Cyanocobalamin (Vitamin B-12) [Vitamin B-12] 4,000 mcg PO DAILY Rivastigmine Tartrate [Rivastigmine] 1.5 mg PO DAILY Furosemide [Lasix] 40 mg PO BID@0900,1600 tab Lacosamide [Vimpat] 50 mg PO BID #6 tablet Budesonide-Formot 160-4.5 Mcg [Symbicort 160-4.5 Mcg Inhaler] 2 puff INHALATION RT-BID puff Sucralfate [Carafate] 1 gm PO AC-TID tab Potassium Chloride ER [K-Dur 20] 20 meq PO DAILY #30 tab Latanoprost [Xalatan 0.005%] 1 drop LEFT EYE HS Propranolol [Inderal] 40 mg PO BID Clopidogrel [Plavix] 75 mg PO DAILY Pantoprazole [Protonix] 40 mg PO DAILY Discharge Medication List Albuterol Nebulized [Ventolin Nebulized] 2.5 mg INHALATION RT-QID 12/04/16 [ History] PARoxetine HCL 60 mg PO DAILY 03/05/18 [History] Metoprolol Succinate (ER) [Toprol XL] 50 mg PO DAILY 04/16/18 [History] Primidone [Mysoline] 50 mg PO TID 04/16/18 [History] Atorvastatin [Lipitor] 80 mg PO HS tab 04/19/18 [Rx] Fludrocortisone [Florinef] 0.1 mg PO DAILY tab 04/19/18 [Rx] rOPINIRole HCL [Requip] 1 mg PO DAILY tab 04/19/18 [Rx] Famotidine [Pepcid] 20 mg PO DAILY 04/21/18 [History] Aspirin 81 mg PO DAILY #30 chewable 04/27/18 [Rx] Cyanocobalamin (Vitamin B-12) [Vitamin B-12] 4,000 mcg PO DAILY 05/11/18 [ History] Spironolactone 12.5 mg PO DAILY 05/11/18 [History] Rivastigmine Tartrate [Rivastigmine] 1.5 mg PO DAILY 05/28/18 [History] Furosemide [Lasix] 40 mg PO BID@0900,1600 tab 05/29/18 [Rx] Lacosamide [Vimpat] 50 mg PO BID #6 tablet 05/29/18 [Rx] Budesonide-Formot 160-4.5 Mcg [Symbicort 160-4.5 Mcg Inhaler] 2 puff INHALATION RT-BID puff 06/12/18 [Rx] Sucralfate [Carafate] 1 gm PO AC-TID tab 06/12/18 [Rx] Potassium Chloride ER [K-Dur 20] 20 meq PO DAILY #30 tab 06/14/18 [Rx] Clopidogrel [Plavix] 75 mg PO DAILY 07/05/18 [History] Latanoprost [Xalatan 0.005%] 1 drop LEFT EYE HS 07/05/18 [History] Pantoprazole [Protonix] 40 mg PO DAILY 07/05/18 [History] Propranolol [Inderal] 40 mg PO BID 07/05/18 [History] predniSONE See Taper PO DAILY #90 tab 07/10/18 [Rx] predniSONE See Taper PO DAILY #90 tab 07/10/18 [Rx] Follow up Appointment(s)/Referral(s): Duarte Figueredo Jr, DO [Primary Care Provider] - 1 Week Jessica Cardoso MD [STAFF PHYSICIAN] - 1 Week Activity/Diet/Wound Care/Special Instructions: [facility] Discharge Disposition: HOME WITH HOME HEALTH SERVICES
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
[2018-07-10 17:03] LABS: Glucose,Whole Blood 190 mg/dL (75-99)
[2018-07-10] MEDS: ATORVASTATIN 80 MG TAB PO SCH (19:35)
[2018-07-10 20:42] LABS: Glucose,Whole Blood 133 mg/dL (75-99)
[2018-07-10] MEDS: ACETAMINOPHEN TAB 325 MG TAB PO PRN (23:35)
[2018-07-11 07:32] LABS: Glucose,Whole Blood 268 mg/dL (75-99)
[2018-07-11 07:43] VITALS: BP 123/71; RESP 18; TEMP 97.9
[2018-07-11] MEDS: METOPROLOL SUCCINATE (ER) 50 MG TAB.ER.24H PO SCH (08:02)
[2018-07-11] MEDS: FAMOTIDINE 20 MG TAB PO SCH (08:02)
[2018-07-11] MEDS: INSULIN ASPART 100 UNIT/ML 1 ML 10 ML VIAL SQ SCH ×2 (08:02→12:08)
[2018-07-11] MEDS: CLOPIDOGREL 75 MG TAB PO SCH (08:02)
[2018-07-11] MEDS: CYANOCOBALAMIN 500 MCG TAB PO SCH (08:02)
[2018-07-11] MEDS: PARoxetine 20 MG TAB PO SCH (08:02)
[2018-07-11] MEDS: PANTOPRAZOLE 40 MG TABLET PO SCH (08:02)
[2018-07-11] MEDS: PRIMIDONE 50 MG TAB PO SCH (08:02)
[2018-07-11] MEDS: ASPIRIN 81 MG PO SCH (08:02)
[2018-07-11] MEDS: PROPRANOLOL 40 MG TAB PO SCH (08:03)
[2018-07-11] MEDS: predniSONE 20 MG TAB PO SCH (08:03)
[2018-07-11] MEDS: FUROSEMIDE 40 MG TAB PO SCH (08:03)
[2018-07-11] MEDS: SPIRONOLACTONE 25 MG TAB PO SCH (08:03)
[2018-07-11] MEDS: POTASSIUM CHLORIDE ER 20 MEQ TAB.ER PO SCH (08:03)
[2018-07-11] MEDS: DONEPEZIL 5 MG TAB PO SCH (08:03)
[2018-07-11] MEDS: FLUDROCORTISONE 0.1 MG TAB PO SCH (08:04)
[2018-07-11] MEDS: LACOSAMIDE 50 MG TABLET PO SCH (08:05)
[2018-07-11] MEDS: IPRATROPIUM-ALBUTEROL 3 ML NEB INHALATION SCH ×2 (08:13→12:01)
[2018-07-11 09:59] VITALS: BMI 18.7
[2018-07-11] MEDS ORDERED: MAG HYDROX/AL HYDROX/SIMETH 30 ML CUP PO PRN (10:29)
[2018-07-11 11:57] LABS: Glucose,Whole Blood 103 mg/dL (75-99)
[2018-07-11] MEDS: SYMBICORT 160-4.5 MCG INHALER INHALATION SCH (12:02)
[2018-07-11 12:05] VITALS: PULSE 76
--- NOTE | 2018-07-13 08:28 | CDI ---
Documentation Clarification Form Date: 07/13/18 From: Nichol Kay Phone: If you have a question regarding this query, please contact Vernell Sánchez at [phone] between 8am and 5pm. Admit Date: 07/05/2018 3:33:00 PM Patient Name: Kasandra Benítez Visit Number: [id number] Discharge Date: 07/11/2018 2:16:00 PM ATTENTION: The Clinical Documentation Specialists (CDI) and [facility] Coding Staff appreciate your assistance in clarifying documentation. Please respond to the clarification below the line at the bottom and electronically sign. The CDI & [facility] Coding staff will review the response and follow-up if needed. Please note: Queries are made part of the Legal Health Record. If you have any questions, please contact the author of this message via ITS. Dr. Yovani Isbell MD Sepsis is documented in the ED report but not documented after that. History/Risk Factors: Patient was admitted with pneumonia Clinical Indicators: Fever and altered mental status, acute respiratory failure and CHF exacerbation. WBC: 17.6 Lactic acid: 1.0 Blood cultures: No growth. Vitals signs on admission: T. 101.9, P. 85, R. 24, BP 97/60 Treatment: Antibiotics: IV Azithromycin, IV Ceftriaxone, IV Zosyn IV Bolus: 1 liter of sodium chloride In your professional opinion, please clarify if these findings signify one of the following conditions and cause, if known: ------>Sepsis ruled out SIRS, without underlying infectious process Sepsis Severe Sepsis Septic Shock Other, please specify Unable to determine Link or clarify if there is associated (due to/with): Organ failure Shock MTDD
== END 2018-07-11 14:16 | DRG 193 ==
LOC: EC 12:16 → 3SCARD 15:33 → 4MS4W 07-10 22:23
PROVIDERS: ADMIT Family Medicine; ATTEND Family Medicine
DX: J18.9 Pneumonia, unspecified organism (principal); J96.21 Acute and chronic respiratory failure with hypoxia; J96.22 Acute and chronic respiratory failure with hypercapnia; I50.33 Acute on chronic diastolic (congestive) heart failure; J44.0 Chronic obstructive pulmonary disease with (acute) lower respiratory infection; J44.1 Chronic obstructive pulmonary disease with (acute) exacerbation; E78.5 Hyperlipidemia, unspecified; F41.9 Anxiety disorder, unspecified; I11.0 Hypertensive heart disease with heart failure; I25.10 Atherosclerotic heart disease of native coronary artery without angina pectoris; I25.2 Old myocardial infarction; I25.5 Ischemic cardiomyopathy; I27.29 Other secondary pulmonary hypertension; I73.9 Peripheral vascular disease, unspecified; K21.9 Gastro-esophageal reflux disease without esophagitis; K90.0 Celiac disease; F32.9 Major depressive disorder, single episode, unspecified; M81.0 Age-related osteoporosis without current pathological fracture; H40.9 Unspecified glaucoma; R32 Unspecified urinary incontinence; I69.920 Aphasia following unspecified cerebrovascular disease; Z87.891 Personal history of nicotine dependence; Z87.820 Personal history of traumatic brain injury; Z79.02 Long term (current) use of antithrombotics/antiplatelets; Z79.51 Long term (current) use of inhaled steroids; Z79.82 Long term (current) use of aspirin; Z79.899 Other long term (current) drug therapy; Z85.3 Personal history of malignant neoplasm of breast; Z91.14 Patient's other noncompliance with medication regimen; Z95.1 Presence of aortocoronary bypass graft; Z95.2 Presence of prosthetic heart valve; Z95.5 Presence of coronary angioplasty implant and graft; Z99.81 Dependence on supplemental oxygen; Z88.8 Allergy status to other drugs, medicaments and biological substances; Z87.01 Personal history of pneumonia (recurrent); Z87.11 Personal history of peptic ulcer disease; Z82.49 Family history of ischemic heart disease and other diseases of the circulatory system; Z83.3 Family history of diabetes mellitus
CPT/HCPCS: 36415; 71046; 80048; 80053; 81001; 82550; 82553; 83605; 83880; 84484; 85025; 85610; 85730; 87040; 87086; 87502; 93005; 94640; 94660; 96365; 96367; 99291

== ENCOUNTER 2018-10-12 14:04 | Inpatient (IN) | payer OTHER ==
[2018-10-12] MEDS ORDERED: IPRATROPIUM-ALBUTEROL 3 ML NEB INHALATION STA (14:57)
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
[2018-10-12 15:41] LABS: ABG Base Excess 6.1 mmol/L; ABG HCO3 33 mmol/L (21-25); ABG Oxygen Saturation 99.9 % (94-97); ABG PCO2 68 mmHg (35-45); ABG PH 7.29 (7.35-7.45); ABG PO2 >400 mmHg (83-108); ABG TCO2 35 mmol/L (19-24)
[2018-10-12] MEDS ORDERED: PNEUMONIA PROTOCOL UTILIZED 1 EACH MISC PO PRN (16:07)
[2018-10-12] MEDS ORDERED: ALPRAZolam 0.25 MG TAB PO PRN (19:31)
[2018-10-12 19:38] VITALS: BMI 22.8
[2018-10-12] MEDS: methylPREDNISolone SOD SUCCI 125 MG/2 ML VIAL IV SCH (20:37)
[2018-10-12 20:43] LABS: Anisocytosis Slight; Basophils # (A) 0.1 k/uL (0-0.2); Basophils % (A) 0 %; Eosinophils # (A) 0.4 k/uL (0-0.7); Eosinophils % (A) 2 %; HCT 32.6 % (34.0-46.0); HGB 9.3 gm/dL (11.4-16.0); Hypochromasia Marked; Lymphocytes # (A) 1.9 k/uL (1.0-4.8); Lymphocytes % (A) 8 %; MCHC 28.6 g/dL (31.0-37.0); MCV 73.4 fL (80.0-100.0); Mean Platelet Volume 6.9; Microcytosis Moderate; Monocytes # (A) 1.2 k/uL (0-1.0); Monocytes % (A) 5 %; Neutrophils # (A) 18.9 k/uL (1.3-7.7); Neutrophils % (A) 83 %; Platelet Count 402 k/uL (150-450); Poikilocytosis Slight; RBC 4.44 m/uL (3.80-5.40); RDW 16.4 % (11.5-15.5); WBC 22.8 k/uL (3.8-10.6)
[2018-10-12 21:11] LABS: ALT 35 U/L (9-52); AST 47 U/L (14-36); Albumin 3.6 g/dL (3.5-5.0); Alkaline Phosphatase 68 U/L (38-126); Anion Gap 6 mmol/L; Blood Urea Nitrogen 22 mg/dL (7-17); Calcium 9.2 mg/dL (8.4-10.2); Carbon Dioxide 31 mmol/L (22-30); Chloride 105 mmol/L (98-107); Glucose 64 mg/dL (74-99); Potassium 5.5 mmol/L (3.5-5.1); Sodium 142 mmol/L (137-145); Total Bilirubin 0.6 mg/dL (0.2-1.3); Total Protein 6.2 g/dL (6.3-8.2)
[2018-10-12] MEDS: SYMBICORT 160-4.5 MCG INHALER INHALATION SCH (21:34)
[2018-10-12] MEDS: LACOSAMIDE 50 MG TABLET PO SCH (23:10)
[2018-10-12] MEDS: ATORVASTATIN 80 MG TAB PO SCH (23:22)
[2018-10-13] MEDS: LATANOPROST 0.005% OPHTH DROPS 2.5 ML BTL LEFT EYE SCH ×2 (01:37→23:45)
[2018-10-13] MEDS: methylPREDNISolone SOD SUCCI 125 MG/2 ML VIAL IV SCH ×5 (01:39→23:45)
[2018-10-13] MEDS: PIPERACILLIN-TAZOBACTAM 3.375 GM in SODIUM CHLORIDE 0.9% 100 ML IVPB SCH ×4 (01:51→23:45)
[2018-10-13] MEDS: PRIMIDONE 50 MG TAB PO SCH ×4 (02:04→21:19)
[2018-10-13] MEDS: LACOSAMIDE 50 MG TABLET PO SCH ×2 (07:44→21:19)
[2018-10-13] MEDS: CLOPIDOGREL 75 MG TAB PO SCH (07:44)
[2018-10-13] MEDS: IPRATROPIUM-ALBUTEROL 3 ML NEB INHALATION PRN ×4 (07:45→19:25)
[2018-10-13] MEDS: PARoxetine 20 MG TAB PO SCH (07:45)
[2018-10-13] MEDS: METOPROLOL SUCCINATE (ER) 50 MG TAB.ER.24H PO SCH (07:46)
[2018-10-13] MEDS: CYANOCOBALAMIN 500 MCG TAB PO SCH (07:47)
[2018-10-13] MEDS: ASPIRIN 81 MG PO SCH (07:47)
[2018-10-13] MEDS: SYMBICORT 160-4.5 MCG INHALER INHALATION SCH ×2 (07:48→19:25)
[2018-10-13] MEDS: POTASSIUM CHLORIDE ER 10 MEQ TAB.ER.PRT PO SCH (07:48)
[2018-10-13] MEDS: FUROSEMIDE 40 MG TAB PO SCH (07:49)
[2018-10-13] MEDS: FLUDROCORTISONE 0.1 MG TAB PO SCH (07:49)
[2018-10-13] MEDS: PANTOPRAZOLE 40 MG TABLET PO SCH (07:49)
[2018-10-13] MEDS: RIVASTIGMINE TARTRATE 3 MG PO SCH (07:57)
[2018-10-13 08:59] LABS: Basophils % (A) 0 %; Eosinophils % (A) 0 %; HCT 28.2 % (34.0-46.0); HGB 7.9 gm/dL (11.4-16.0); Hypochromasia Marked; Lymphocytes # (A) 0.5 k/uL (1.0-4.8); Lymphocytes % (A) 2 %; MCH 21.4 pg (25.0-35.0); MCHC 28.1 g/dL (31.0-37.0); Mean Platelet Volume 6.7; Microcytosis Slight; Monocytes # (A) 0.3 k/uL (0-1.0); Monocytes % (A) 2 %; Neutrophils # (A) 19.4 k/uL (1.3-7.7); Neutrophils % (A) 95 %; Platelet Count 337 k/uL (150-450); RDW 15.9 % (11.5-15.5); WBC 20.3 k/uL (3.8-10.6)
[2018-10-13] MEDS ORDERED: predniSONE 20 MG TAB PO SCH (09:00)
[2018-10-13 09:08] LABS: Anion Gap 8 mmol/L; Blood Urea Nitrogen 23 mg/dL (7-17); Calcium 9.4 mg/dL (8.4-10.2); Carbon Dioxide 30 mmol/L (22-30); Chloride 106 mmol/L (98-107); Glucose 121 mg/dL (74-99); Potassium 4.3 mmol/L (3.5-5.1); Sodium 144 mmol/L (137-145)
--- NOTE | 2018-10-13 14:51 | XR ---
EXAMINATION TYPE: XR chest 2V DATE OF EXAM: 10/13/2018 COMPARISON: 07/06/2018 HISTORY: Shortness of breath TECHNIQUE: Frontal and lateral views of the chest are obtained. FINDINGS: Scattered senescent parenchymal changes noted. Hyperinflation compatible with COPD. No evidence for infiltrate. No evidence for atelectasis. Heart size is stable. Mediastinal structures are stable and grossly unremarkable. No evidence for hilar prominence. Degenerative changes dorsal spine. IMPRESSION: 1. No evidence for acute pulmonary disease.
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
[2018-10-13 20:25] LABS: Glucose,Whole Blood 301 mg/dL (75-99)
[2018-10-13] MEDS: ATORVASTATIN 80 MG TAB PO SCH (21:19)
[2018-10-13] MEDS: INSULIN ASPART (NovoLOG) 100 UNIT/ML VIAL SQ SCH (21:19)
[2018-10-14] MEDS: methylPREDNISolone SOD SUCCI 125 MG/2 ML VIAL IV SCH ×3 (05:00→17:34)
[2018-10-14 07:25] LABS: Glucose,Whole Blood 186 mg/dL (75-99)
[2018-10-14] MEDS: IPRATROPIUM-ALBUTEROL 3 ML NEB INHALATION PRN ×4 (08:06→21:09)
[2018-10-14] MEDS: SYMBICORT 160-4.5 MCG INHALER INHALATION SCH ×2 (08:07→21:09)
[2018-10-14 08:11] LABS: Anisocytosis Slight; Basophils % (A) 0 %; Eosinophils % (A) 0 %; HCT 26.4 % (34.0-46.0); HGB 7.9 gm/dL (11.4-16.0); Hypochromasia Marked; Lymphocytes # (A) 0.6 k/uL (1.0-4.8); Lymphocytes % (A) 3 %; MCHC 30.1 g/dL (31.0-37.0); Mean Platelet Volume 6.9; Microcytosis Moderate; Monocytes # (A) 0.4 k/uL (0-1.0); Monocytes % (A) 2 %; Neutrophils # (A) 18.4 k/uL (1.3-7.7); Neutrophils % (A) 94 %; Platelet Count 362 k/uL (150-450); RBC 3.62 m/uL (3.80-5.40); RDW 16.6 % (11.5-15.5); WBC 19.5 k/uL (3.8-10.6)
[2018-10-14 08:20] LABS: Anion Gap 7 mmol/L; Blood Urea Nitrogen 26 mg/dL (7-17); Carbon Dioxide 31 mmol/L (22-30); Chloride 100 mmol/L (98-107); Glucose 144 mg/dL (74-99); Potassium 3.9 mmol/L (3.5-5.1); Sodium 138 mmol/L (137-145)
[2018-10-14] MEDS: INSULIN ASPART (NovoLOG) 100 UNIT/ML VIAL SQ SCH ×4 (09:07→21:03)
[2018-10-14] MEDS: ASPIRIN 81 MG PO SCH (09:53)
[2018-10-14] MEDS: PARoxetine 20 MG TAB PO SCH (09:53)
[2018-10-14] MEDS: PANTOPRAZOLE 40 MG TABLET PO SCH (09:53)
[2018-10-14] MEDS: PRIMIDONE 50 MG TAB PO SCH ×3 (09:54→21:03)
[2018-10-14] MEDS: PIPERACILLIN-TAZOBACTAM 3.375 GM in SODIUM CHLORIDE 0.9% 100 ML IVPB SCH ×2 (09:54→16:26)
[2018-10-14] MEDS: LACOSAMIDE 50 MG TABLET PO SCH ×2 (09:54→21:02)
[2018-10-14] MEDS: FUROSEMIDE 40 MG TAB PO SCH (09:54)
[2018-10-14] MEDS: POTASSIUM CHLORIDE ER 10 MEQ TAB.ER.PRT PO SCH (09:54)
[2018-10-14] MEDS: METOPROLOL SUCCINATE (ER) 50 MG TAB.ER.24H PO SCH (09:54)
[2018-10-14] MEDS: CYANOCOBALAMIN 500 MCG TAB PO SCH (09:54)
[2018-10-14] MEDS: CLOPIDOGREL 75 MG TAB PO SCH (09:54)
[2018-10-14] MEDS: FLUDROCORTISONE 0.1 MG TAB PO SCH (09:55)
[2018-10-14] MEDS: RIVASTIGMINE TARTRATE 3 MG PO SCH (10:03)
--- NOTE | 2018-10-14 11:33 | P.PN ---
Subjective Progress Note Date: 10/14/18 This is a 62-year-old female resident of [facility] with history of severe end-stage COPD, chronic hypoxic and hypercapnic respiratory failure, on home oxygen, and home BiPAP, hemorrhagic CVA, chronic congestive heart failure, expressive aphasia related to her CVA, coronary artery disease, hypertension, hyperlipidemia, previous episodes of myocardial infarction, numerous episodes of pneumonia and tracheobronchitis, and GI bleeding. She has had numerous previous admissions for complications related to COPD, CHF, and pneumonias. Patient was transferred from [facility] to the emergency department related to patient descending, maintaining only 80% on BiPAP with ini tial CO2 of 79. Initial troponin reported as normal with a BNP of 11,000. Afebrile, elevated WBC of 22.8 on admission, down to 20.3. Hemoglobin 7.9, down from 9.3. Patient is a poor historian,due to expressive aphasia. Repeat troponin 0.053. EKG reporting NSR, inversion the precordial leads, lateral ST depression. Repeat ABG reported pH 7.29, pCO2 67 pO2 of 400 bicarb 32.6 .Chest x-ray reporting COPD, suggestive of possible right lower lobe infiltrate. Evaluated by cardiology with recommendations noted. IV antibiotics of Zosyn initiated with nebulized bronchodilators and IV steroids. Denies chest pain, palpitations. Above information per nurse practitioner. 10/14/2018: This is a 62-year-old white female, well-known to me with severe end-stage COPD, BiPAP, hypercapnic respiratory failure. She was in [facility] after her was unable to care for her. She was frequently readmitted with exacerbation of COPD she was noncompliant with her BiPAP and continue to smoke at home. Her was enabling this. She was given a public guardian for being sent to [facility] and seemingly doing well. She is currently listed as a full code, but to my recollection she was a DNR with hospitalization. Public guardian was contacted, however they don't have an y paperwork to that effect. Currently Kasandra is close to her baseline. She was found asleep in her room. She was easily aroused. She has significant dysarthria due to her hemorrhagic CVA. She denies any chest pains, pressures, or shortness breath at rest at this time. She has oxygen via nasal cannula currently. She denies any diarrhea or constipation. Indicate she had a bowel movement yesterday. Denies any dysuria. She also has significant history of congestive heart failure and is being followed by cardiology. Their consultation was reviewed today. Objective - Vital Signs Vital signs: Vital Signs Temp 98.0 F 10/14/18 08:10 Pulse 76 10/14/18 08:25 Resp 16 10/14/18 08:10 BP 109/59 10/14/18 08:10 Pulse Ox 99 10/14/18 08:10 Intake & Output 10/13/18 10/14/18 10/14/18 18:59 06:59 18:59 Intake Total 200 Output Total 425 Balance -425 200 Intake: Intake, IV Titration 200 Amount Piperacillin-Tazobactam 3 200 .375 gm In Sodium Chloride 0.9% 100 ml @ 25 mls/hr IVPB Q8HR [facility] Rx# :[id number] Output: Urine 425 Other: Voiding Method Indwelling Catheter Indwelling Catheter - Exam General: The patient is asleep in her room. She was easily arousable. Appears at her baseline mentation. Nasal cannula oxygen is in place. Neck: The neck is supple, there is no thyromegaly, lymphadenopathy, tenderness or JVD. Cardiovascular: S1S2 is normal, There is a regular rate and rhythm. No murmur, rub or gallop is appreciated. Respiratory: Lungs are coarse with significantly poor air exchange due to her end-stage COPD. Gastrointestinal: Soft, non-distended, non-tender abdomen without masses or organomegaly noted. There is no rebound or guarding present. Bowel sounds are unremarkable. Musculoskeletal: Normal ROM, no tenderness, There is no pedal edema. There is no calf tenderness or swelling. No cords were appreciated. Neurological: CN II-XII intact, . Coordination appears grossly intact. Speech is dysarthric due to her hemorrhagic CVA. Skin: Skin is warm and dry and no rashes or lesions are noted. - Labs CBC & Chem 7: 10/14/18 07:33 10/14/18 07:33 Labs: Abnormal Lab Results - Last 24 Hours (Table) 10/13/18 10/13/18 10/14/18 Range/Units 15:06 20:23 07:12 WBC (3.8-10.6) k/uL RBC (3.80-5.40) m/uL Hgb (11.4-16.0) gm/dL Hct (34.0-46.0) % MCV (80.0-100.0) fL MCH (25.0-35.0) pg MCHC (31.0-37.0) g/dL RDW (11.5-15.5) % Neutrophils # (1.3-7.7) k/uL Lymphocytes # (1.0-4.8) k/uL Carbon Dioxide (22-30) mmol/L BUN (7-17) mg/dL Glucose (74-99) mg/dL POC Glucose (mg/dL) 301 H 186 H (75-99) mg/dL Troponin I 0.053 H* (0.000-0.034) ng/mL 10/14/18 10/14/18 10/14/18 Range/Units 07:33 07:33 07:33 WBC 19.5 H (3.8-10.6) k/uL RBC 3.62 L (3.80-5.40) m/uL Hgb 7.9 L (11.4-16.0) gm/dL Hct 26.4 L (34.0-46.0) % MCV 73.0 L (80.0-100.0) fL MCH 22.0 L (25.0-35.0) pg MCHC 30.1 L (31.0-37.0) g/dL RDW 16.6 H (11.5-15.5) % Neutrophils # 18.4 H (1.3-7.7) k/uL Lymphocytes # 0.6 L (1.0-4.8) k/uL Carbon Dioxide 31 H (22-30) mmol/L BUN 26 H (7-17) mg/dL Glucose 144 H (74-99) mg/dL POC Glucose (mg/dL) (75-99) mg/dL Troponin I 0.056 H* (0.000-0.034) ng/mL Microbiology - Last 24 Hours (Table) 10/12/18 17:14 Blood Culture - Preliminary Blood No Growth after 24 hours Assessment and Plan (1) COPD with acute exacerbation Current Visit: Yes Status: Acute Code(s): J44.1 - CHRONIC OBSTRUCTIVE PULMONARY DISEASE W (ACUTE) EXACERBATION SNOMED Code(s): 801053626 (2) Acute exacerbation of chronic obstructive airways disease Current Visit: No Status: Acute Code(s): J44.1 - CHRONIC OBSTRUCTIVE PULMONARY DISEASE W (ACUTE) EXACERBATION SNOMED Code(s): 405542186 (3) Elevated troponin Current Visit: No Status: Acute Code(s): R79.89 - OTHER SPECIFIED ABNORMAL FINDINGS OF BLOOD CHEMISTRY SNOMED Code(s): 639655077 (4) History of coronary artery stent placement Current Visit: No Status: Acute Code(s): Z95.5 - PRESENCE OF CORONARY ANGIOPLASTY IMPLANT AND GRAFT SNOMED Code(s): 297968682 (5) History of myocardial infarction Current Visit: No Status: Acute Code(s): I25.2 - OLD MYOCARDIAL INFARCTION SNOMED Code(s): 060074634 (6) Iron deficiency anemia Current Visit: No Status: Acute Code(s): D50.9 - IRON DEFICIENCY ANEMIA, UNSPECIFIED SNOMED Code(s): 66226150 (7) Leukocytosis Current Visit: No Status: Acute Code(s): D72.829 - ELEVATED WHITE BLOOD CELL COUNT, UNSPECIFIED SNOMED Code(s): 602936225 (8) On home oxygen therapy Current Visit: No Status: Acute Code(s): Z99.81 - DEPENDENCE ON SUPPLEMENTAL OXYGEN SNOMED Code(s): 070578903392 (9) Systolic congestive heart failure Current Visit: No Status: Chronic Onset Date: 07/14/14 Code(s): I50.20 - UNSPECIFIED SYSTOLIC (CONGESTIVE) HEART FAILURE SNOMED Code(s): 99620801 (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 She'll continue on DuoNeb updrafts, Symbicort, Solu-Medrol, Zosyn for antibiotic coverage. She'll continue Mysoline Requip, Florinef for her vasovagal hypotension, and tremor from CVA. She'll continue on treatment for hyperlipidemia coronary disease with Plavix, a torvastatin and aspirin. Continue metoprolol, Lasix and potassium for her congestive heart failure c ontrol. She'll continue on insulin scale for hyperglycemia related to her steroid use her CPAP. She'll continue on Lotensin process and real estate mean for her Glaucoma GI prophylaxis continues with Protonix as she has a history of duodenal ulcer. She'll continue on Vimpat for her seizure disorder history. We'll repeat labs in a.m. She'll be reevaluated in the next 24 hours. We'll wait on consult and recommendations
[2018-10-14 11:52] LABS: Glucose,Whole Blood 143 mg/dL (75-99)
[2018-10-14 16:52] LABS: Glucose,Whole Blood 188 mg/dL (75-99)
--- NOTE | 2018-10-14 18:04 | P.PN ---
Subjective Progress Note Date: 10/14/18 Principal diagnosis: Abnormal cardiac enzymes This is a pleasant 62-year-old female patient who I follow in the office as an outpatient with known history of coronary artery disease and prior coronary revascularization, valvular heart disease and status post mitral and tricuspid valve repair, peripheral arterial disease and status post peripheral arterial revascularization, ischemic cardiomyopathy, as well as history of chronic hypoxic respiratory failure, was admitted to the hospital with shortness of breath. The diagnoses was acute hypoxic respiratory failure secondary to COPD exacerbation october. We get involved in her care for abnormal cardiac enzymes. On follow-up with her today, she denies any symptoms of chest pain or chest discomfort. She still short of breath but she stated that the shortness of breath is slightly better. She suffered from stroke about 6 months ago but her verbal communication has improved. She continues to be in normal sinus mechanism. Objective - Vital Signs Vital signs: Vital Signs Temp 98.2 F 10/14/18 14:30 Pulse 70 10/14/18 17:14 Resp 16 10/14/18 14:30 BP 113/66 10/14/18 14:30 Pulse Ox 96 10/14/18 16:46 Intake & Output 10/13/18 10/14/18 10/14/18 18:59 06:59 18:59 Intake Total 200 800 Output Total 425 1100 Balance -425 200 -300 Intake: IV 800 Piperacillin-Tazobactam 3 800 .375 gm In Sodium Chloride 0.9% 100 ml @ 25 mls/hr IVPB Q8HR AGUILA Rx# :[id number] Intake, IV Titration 200 Amount Piperacillin-Tazobactam 3 200 .375 gm In Sodium Chloride 0.9% 100 ml @ 25 mls/hr IVPB Q8HR AGUILA Rx# :[id number] Output: Urine 425 1100 Other: Voiding Method Indwelling Catheter Indwelling Catheter - Constitutional General appearance: Present: no acute distress - Respiratory Respiratory: bilateral: rhonchi - Cardiovascular Rhythm: regular Heart sounds: normal: S1, S2 - Labs CBC & Chem 7: 10/14/18 07:33 10/14/18 07:33 Labs: Abnormal Lab Results - Last 24 Hours (Table) 10/13/18 10/14/18 10/14/18 Range/Units 20:23 07:12 07:33 WBC 19.5 H (3.8-10.6) k/uL RBC 3.62 L (3.80-5.40) m/uL Hgb 7.9 L (11.4-16.0) gm/dL Hct 26.4 L (34.0-46.0) % MCV 73.0 L (80.0-100.0) fL MCH 22.0 L (25.0-35.0) pg MCHC 30.1 L (31.0-37.0) g/dL RDW 16.6 H (11.5-15.5) % Neutrophils # 18.4 H (1.3-7.7) k/uL Lymphocytes # 0.6 L (1.0-4.8) k/uL Carbon Dioxide (22-30) mmol/L BUN (7-17) mg/dL Glucose (74-99) mg/dL POC Glucose (mg/dL) 301 H 186 H (75-99) mg/dL Troponin I (0.000-0.034) ng/mL 10/14/18 10/14/18 10/14/18 Range/Units 07:33 07:33 11:40 WBC (3.8-10.6) k/uL RBC (3.80-5.40) m/uL Hgb (11.4-16.0) gm/dL Hct (34.0-46.0) % MCV (80.0-100.0) fL MCH (25.0-35.0) pg MCHC (31.0-37.0) g/dL RDW (11.5-15.5) % Neutrophils # (1.3-7.7) k/uL Lymphocytes # (1.0-4.8) k/uL Carbon Dioxide 31 H (22-30) mmol/L BUN 26 H (7-17) mg/dL Glucose 144 H (74-99) mg/dL POC Glucose (mg/dL) 143 H (75-99) mg/dL Troponin I 0.056 H* (0.000-0.034) ng/mL 10/14/18 Range/Units 16:40 WBC (3.8-10.6) k/uL RBC (3.80-5.40) m/uL Hgb (11.4-16.0) gm/dL Hct (34.0-46.0) % MCV (80.0-100.0) fL MCH (25.0-35.0) pg MCHC (31.0-37.0) g/dL RDW (11.5-15.5) % Neutrophils # (1.3-7.7) k/uL Lymphocytes # (1.0-4.8) k/uL Carbon Dioxide (22-30) mmol/L BUN (7-17) mg/dL Glucose (74-99) mg/dL POC Glucose (mg/dL) 188 H (75-99) mg/dL Troponin I (0.000-0.034) ng/mL Microbiology - Last 24 Hours (Table) 10/12/18 17:14 Blood Culture - Preliminary Blood No Growth after 24 hours Assessment and Plan Assessment: Assessment #1 acute Toxic respiratory failure secondary to COPD exacerbation #2 chronic diastolic congestive heart failure, the patient doesn't seems to be in any acute exacerbation at this point #3 coronary artery disease and status post coronary revascularization #4 peripheral arterial disease and status post peripheral revascularization #5 multiple comorbid conditions Plan #1 the chest x-ray did not show any acute abnormalities #2 I did review the echocardiogram which revealed impaired LV function with EF around 40-45% #3 I would recommend continue the current medical regimen
--- NOTE | 2018-10-14 18:19 | ECHOF ---
Referral Reason:ekg changes MEASUREMENTS -------- HEIGHT: 152.4 cm WEIGHT: 53.1 kg BP: IVSd: 1.4 cm (0.6 - 1.1) LVIDd: 3.7 cm (3.9 - 5.3) LVPWd: 1.4 cm (0.6 - 1.1) IVSs: 1.5 cm LVIDs: 2.8 cm LVPWs: 1.7 cm LA Diam: 4.2 cm (2.7 - 3.8) Ao Diam: 2.3 cm (2.0 - 3.7) LA Diam: 3.6 cm (2.7 - 3.8) MV EXCURSION: 19.089 mm (> 18.000) MV EF SLOPE: 38 mm/s (70 - 150) EPSS: 0.8 cm MV E Ricki: 1.18 m/s MV DecT: 478 ms MV A Ricki: 1.39 m/s MV E/A Ratio: 0.85 RAP: 5.00 mmHg RVSP: 53.78 mmHg FINDINGS -------- Sinus rhythm. This was a techncally difficult study with suboptimal views, , Lumason utilized for enhancement of im ages. The left ventricular size is normal. There is mild concentric left ventricular hypertrophy. Overa ll left ventricular systolic function is mild-moderately impaired with, an EF between 40 - 45 %. The right ventricle is normal in size. The left atrium is mildly dilated. The right atrial size is normal. 5.0mg OF Lumason UTLIZED: 2 OR MORE WALL SEGMENTS NOT VISUALIZED. There is mild aortic valve sclerosis. There is no evidence of aortic regurgitation. Mild mitral annular calcification present. Mild mitral regurgitation is present. Mild tricuspid regurgitation present. There is moderate pulmonary hypertension. The right ventric ular systolic pressure, as measured by Doppler, is 53.78mmHg. There is no pulmonic regurgitation present. The aortic root size is normal. IVC Not well visulized. There is no pericardial effusion. CONCLUSIONS -------- 1. This was a techncally difficult study with suboptimal views, , Lumason utilized for enhancement of images. 2. The left ventricular size is normal. 3. Overall left ventricular systolic function is mild-moderately impaired with, an EF between 40 - 45 %. 4. The right ventricle is normal in size. 5. The left atrium is mildly dilated. 6. The right atrial size is normal. 7. 5.0mg OF Lumason UTLIZED: 2 OR MORE WALL SEGMENTS NOT VISUALIZED. 8. Interatrial Septum not well visulized. 9. There is mild aortic valve sclerosis. 10. Mild mitral annular calcification present. 11. Mild mitral regurgitation is present. 12. Mild tricuspid regurgitation present. 13. There is moderate pulmonary hypertension. 14. The right ventricular systolic pressure, as measured by Doppler, is 53.78mmHg. 15. There is no pulmonic regurgitation present. 16. The aortic root size is normal. 17. IVC Not well visulized. 18. There is no pericardial effusion. BUILDING MAINTENANCE MECHANIC: Alaina Frost RDCS
[2018-10-14 20:51] LABS: Glucose,Whole Blood 304 mg/dL (75-99)
[2018-10-14] MEDS: ATORVASTATIN 80 MG TAB PO SCH (21:02)
[2018-10-14] MEDS: LATANOPROST 0.005% OPHTH DROPS 2.5 ML BTL LEFT EYE SCH (21:02)
[2018-10-15] MEDS: PIPERACILLIN-TAZOBACTAM 3.375 GM in SODIUM CHLORIDE 0.9% 100 ML IVPB SCH ×4 (00:02→23:09)
[2018-10-15] MEDS: methylPREDNISolone SOD SUCCI 125 MG/2 ML VIAL IV SCH ×2 (00:02→05:26)
[2018-10-15 07:38] LABS: Glucose,Whole Blood 169 mg/dL (75-99)
[2018-10-15 07:42] LABS: Anisocytosis Slight; Basophils % (A) 0 %; Eosinophils % (A) 0 %; HCT 26.6 % (34.0-46.0); HGB 7.9 gm/dL (11.4-16.0); Hypochromasia Marked; Lymphocytes # (A) 0.6 k/uL (1.0-4.8); Lymphocytes % (A) 3 %; MCH 21.6 pg (25.0-35.0); MCHC 29.8 g/dL (31.0-37.0); MCV 72.4 fL (80.0-100.0); Mean Platelet Volume 6.9; Microcytosis Moderate; Monocytes # (A) 0.4 k/uL (0-1.0); Monocytes % (A) 2 %; Neutrophils # (A) 16.5 k/uL (1.3-7.7); Neutrophils % (A) 94 %; Platelet Count 391 k/uL (150-450); Poikilocytosis Slight; RBC 3.67 m/uL (3.80-5.40); RDW 16.5 % (11.5-15.5); WBC 17.6 k/uL (3.8-10.6)
[2018-10-15 07:53] LABS: Anion Gap 7 mmol/L; Blood Urea Nitrogen 23 mg/dL (7-17); Calcium 8.7 mg/dL (8.4-10.2); Carbon Dioxide 32 mmol/L (22-30); Chloride 97 mmol/L (98-107); Glucose 133 mg/dL (74-99); Potassium 3.5 mmol/L (3.5-5.1); Sodium 136 mmol/L (137-145)
[2018-10-15] MEDS: INSULIN ASPART (NovoLOG) 100 UNIT/ML VIAL SQ SCH ×4 (08:33→22:06)
[2018-10-15] MEDS: FUROSEMIDE 40 MG TAB PO SCH (08:34)
[2018-10-15] MEDS: PANTOPRAZOLE 40 MG TABLET PO SCH (08:34)
[2018-10-15] MEDS: IPRATROPIUM-ALBUTEROL 3 ML NEB INHALATION PRN ×4 (08:43→21:32)
[2018-10-15] MEDS: SYMBICORT 160-4.5 MCG INHALER INHALATION SCH ×2 (08:43→21:32)
[2018-10-15] MEDS: LACOSAMIDE 50 MG TABLET PO SCH ×2 (10:16→22:10)
[2018-10-15] MEDS: PRIMIDONE 50 MG TAB PO SCH ×3 (10:16→22:10)
[2018-10-15] MEDS: ASPIRIN 81 MG PO SCH (10:16)
[2018-10-15] MEDS: PARoxetine 20 MG TAB PO SCH (10:16)
[2018-10-15] MEDS: CLOPIDOGREL 75 MG TAB PO SCH (10:16)
[2018-10-15] MEDS: METOPROLOL SUCCINATE (ER) 50 MG TAB.ER.24H PO SCH (10:16)
[2018-10-15] MEDS: CYANOCOBALAMIN 500 MCG TAB PO SCH (10:16)
[2018-10-15] MEDS: POTASSIUM CHLORIDE ER 10 MEQ TAB.ER.PRT PO SCH (10:17)
[2018-10-15] MEDS: FLUDROCORTISONE 0.1 MG TAB PO SCH (10:17)
[2018-10-15] MEDS: RIVASTIGMINE TARTRATE 3 MG PO SCH (10:32)
--- NOTE | 2018-10-15 11:39 | P.PN ---
Subjective This is a 62-year-old female resident of [facility] with history of severe end-stage COPD, chronic hypoxic and hypercapnic respiratory failure, on home oxygen, and home BiPAP, hemorrhagic CVA, chronic congestive heart failure, expressive aphasia related to her CVA, coronary artery disease, hypertension, hyperlipidemia, previous episodes of myocardial infarction, numerous episodes of pneumonia and tracheobronchitis, and GI bleeding. She has had numerous previous admissions for complications related to COPD, CHF, and pneumonias. Patient was transferred from [facility] to the emergency department related to patient descending, maintaining only 80% on BiPAP with initial CO2 of 79. Initial troponin reported as normal with a BNP of 11,000. Afebrile, elevated WBC of 22.8 on admission, down to 20.3. Hemoglobin 7.9, down from 9.3. Patient is a poor historian,due to expressive aphasia. Repeat troponin 0.053. EKG reporting NSR, inversion the precordial leads, lateral ST depression. Repeat ABG reported pH 7.29, pCO2 67 pO2 of 400 bicarb 32.6 .Chest x-ray reporting COPD, suggestive of possible right lower lobe infiltrate. Evaluated by cardiology with recommendations noted. IV antibiotics of Zosyn initiated with nebulized bronchodilators and IV steroids. Denies chest pain, palpitations. Above information per nurse practitioner. 10/14/2018: This is a 62-year-old white female, well-known to me with severe end-stage COPD, BiPAP, hypercapnic respiratory failure. She was in [facility] after her was unable to care for her. She was frequently readmitted with exacerbation of COPD she was noncompliant with her BiPAP and continue to smoke at home. Her was enabling this. She was given a public guardian for being sent to [facility] and seemingly doing well. She is currently listed as a full code, but to my recollection she was a DNR with hospitalization. Public guardian was contacted, however they don't have any paperwork to that effect. Currently Kasandra is close to her baseline. She was found asleep in her room. She was easily aroused. She has significant dysarthria due to her hemorrhagic CVA. She denies any chest pains, pressures, or shortness breath at rest at this time. She has oxygen via nasal cannula currently. She denies any diarrhea or constipation. Indicate she had a bowel movement yesterday. Denies any dysuria. She also has significant history of congestive heart failure and is being followed by cardiology. Their consultation was reviewed today. 10/30/2018: Patient is doing well. She remains on oxygen 4 L/m period she d enies any chest pains or pressures. No shortness breath at rest. Staff indicated she's been doing well up BiPAP overnight. Cardiology had seen her and feels that her elevated BNP is chronic and she does not have exacerbation of CHF during this admission. Her overall condition seems quite improved. Due to her dysarthria and hemorrhagic CVA history, she is sometimes difficult to understand. He is tolerating her diet. Denies recent bowel movement the past 24 hours. She has a Vitale catheter in place. Objective - Vital Signs Vital signs: Vital Signs Temp 98 F 10/15/18 07:00 Pulse 70 10/15/18 08:58 Resp 16 10/15/18 07:00 BP 111/77 10/15/18 07:00 Pulse Ox 93 L 10/15/18 07:00 Intake & Output 10/14/18 10/15/18 10/15/18 18:59 06:59 18:59 Intake Total 800 550 598 Output Total 1100 900 400 Balance -300 -350 198 Intake: IV 800 Piperacillin-Tazobactam 3 800 .375 gm In Sodium Chloride 0.9% 100 ml @ 25 mls/hr IVPB Q8HR AGUILA Rx# :[id number] Intake, IV Titration 200 Amount Piperacillin-Tazobactam 3 200 .375 gm In Sodium Chloride 0.9% 100 ml @ 25 mls/hr IVPB Q8HR AGUILA Rx# :[id number] Oral 350 598 Output: Urine 1100 900 400 Uretheral (Vitale) 400 Other: Voiding Method Indwelling Catheter Indwelling Catheter Indwelling Catheter - Exam General: The patient is asleep in her room. She was easily arousable. Appears at her baseline mentation. Nasal cannula oxygen is in place. Neck: The neck is supple, there is no thyromegaly, lymphadenopathy, tenderness or JVD. Cardiovascular: S1S2 is normal, There is a regular rate and rhythm. No murmur, rub or gallop is appreciated. Respiratory: Lungs are coarse with significantly poor air exchange due to her end-stage COPD. Gastrointestinal: Soft, non-distended, non-tender abdomen without masses or organomegaly noted. There is no rebound or guarding present. Bowel sounds are unremarkable. Musculoskeletal: Normal ROM, no tenderness, There is no pedal edema. There is no calf tenderness or swelling. No cords were appreciated. Neurological: CN II-XII intact, . Coordination appears grossly intact. Speech is dysarthric due to her hemorrhagic CVA. Skin: Skin is warm and dry and no rashes or lesions are noted. - Labs CBC & Chem 7: 10/15/18 06:59 10/15/18 06:59 Labs: Abnormal Lab Results - Last 24 Hours (Table) 10/14/18 10/14/18 10/14/18 Range/Units 11:40 16:40 20:49 WBC (3.8-10.6) k/uL RBC (3.80-5.40) m/uL Hgb (11.4-16.0) gm/dL Hct (34.0-46.0) % MCV (80.0-100.0) fL MCH (25.0-35.0) pg MCHC (31.0-37.0) g/dL RDW (11.5-15.5) % Neutrophils # (1.3-7.7) k/uL Lymphocytes # (1.0-4.8) k/uL Sodium (137-145) mmol/L Chloride (98-107) mmol/L Carbon Dioxide (22-30) mmol/L BUN (7-17) mg/dL Glucose (74-99) mg/dL POC Glucose (mg/dL) 143 H 188 H 304 H (75-99) mg/dL 10/15/18 10/15/18 10/15/18 Range/Units 06:59 06:59 07:29 WBC 17.6 H (3.8-10.6) k/uL RBC 3.67 L (3.80-5.40) m/uL Hgb 7.9 L (11.4-16.0) gm/dL Hct 26.6 L (34.0-46.0) % MCV 72.4 L (80.0-100.0) fL MCH 21.6 L (25.0-35.0) pg MCHC 29.8 L (31.0-37.0) g/dL RDW 16.5 H (11.5-15.5) % Neutrophils # 16.5 H (1.3-7.7) k/uL Lymphocytes # 0.6 L (1.0-4.8) k/uL Sodium 136 L (137-145) mmol/L Chloride 97 L (98-107) mmol/L Carbon Dioxide 32 H (22-30) mmol/L BUN 23 H (7-17) mg/dL Glucose 133 H (74-99) mg/dL POC Glucose (mg/dL) 169 H (75-99) mg/dL Microbiology - Last 24 Hours (Table) 10/12/18 17:14 Blood Culture - Preliminary Blood No Growth after 48 hours Assessment and Plan (1) COPD with acute exacerbation Current Visit: Yes Status: Acute Code(s): J44.1 - CHRONIC OBSTRUCTIVE PULMONARY DISEASE W (ACUTE) EXACERBATION SNOMED Code(s): 365846481 (2) Acute exacerbation of chronic obstructive airways disease Current Visit: No Status: Acute Code(s): J44.1 - CHRONIC OBSTRUCTIVE PULMONARY DISEASE W (ACUTE) EXACERBATION SNOMED Code(s): 325658446 (3) Elevated troponin Current Visit: No Status: Acute Code(s): R79.89 - OTHER SPECIFIED ABNORMAL FINDINGS OF BLOOD CHEMISTRY SNOMED Code(s): 902579193 (4) History of coronary artery stent placement Current Visit: No Status: Acute Code(s): Z95.5 - PRESENCE OF CORONARY ANGIOPLASTY IMPLANT AND GRAFT SNOMED Code(s): 484615001 (5) History of myocardial infarction Current Visit: No Status: Acute Code(s): I25.2 - OLD MYOCARDIAL INFARCTION SNOMED Code(s): 263462913 (6) Iron deficiency anemia Current Visit: No Status: Acute Code(s): D50.9 - IRON DEFICIENCY ANEMIA, UNSPECIFIED SNOMED Code(s): 79894229 (7) Leukocytosis Current Visit: No Status: Acute Code(s): D72.829 - ELEVATED WHITE BLOOD CELL COUNT, UNSPECIFIED SNOMED Code(s): 973348972 (8) On home oxygen therapy Current Visit: No Status: Acute Code(s): Z99.81 - DEPENDENCE ON SUPPLEMENTAL OXYGEN SNOMED Code(s): 658947073651 (9) Tobacco abuse, in remission Current Visit: No Status: Chronic Code(s): F17.201 - NICOTINE DEPENDENCE, UNSPECIFIED, IN REMISSION SNOMED Code(s): 106681199 (10) Diastolic CHF Current Visit: Yes Status: Acute Code(s): I50.30 - UNSPECIFIED DIASTOLIC (CONGESTIVE) HEART FAILURE SNOMED Code(s): 517806751 (11) H/O: CVA (cerebrovascular accident) Current Visit: Yes Status: Acute Code(s): Z86.73 - PRSNL HX OF TIA (TIA), AND CEREB INFRC W/O RESID DEFICITS SNOMED Code(s): 349849548 (12) Aphasia Current Visit: Yes Status: Acute Code(s): R47.01 - APHASIA SNOMED Code(s): 35656158 Plan: Her case was discussed with cardiology and she is cleared by their perspective. She'll continue on DuoNeb updrafts, Symbicort, Solu-Medrol, Zosyn for antibiotic coverage. Reduce the dose of her Solu-Medrol. She'll continue Mysoline Requip, Florinef for her vasovagal hypotension, and tremor from CVA. She'll continue on treatment for hyperlipidemia coronary disease with Plavix, atorvastatin and aspirin. Continue metoprolol, Lasix and potassium for her congestive heart failure control. She'll continue on insulin scale for hyperglycemia related to her steroid use her CPAP. She'll continue on Xalatan for her Glaucoma GI prophylaxis continues with Protonix as she has a history of duodenal ulcer. She'll continue on Vimpat, Ropirinole, Rivistigmine for her seizure disorder, tremors history. We'll repeat labs in a.m. She'll be reevaluated in the next 24 hours. Back discharge in the a.m. Expect discharge back to ECF on exam.
[2018-10-15 11:53] LABS: Glucose,Whole Blood 220 mg/dL (75-99)
--- NOTE | 2018-10-15 14:34 | P.PN ---
Subjective Progress Note Date: 10/15/18 Principal diagnosis: Abnormal cardiac enzymes This is a pleasant 62-year-old female patient who I follow in the office as an outpatient with known history of coronary artery disease and prior coronary revascularization, valvular heart disease and status post mitral and tricuspid valve repair, peripheral arterial disease and status post peripheral arterial revascularization, ischemic cardiomyopathy, as well as history of chronic hypoxic respiratory failure, was admitted to the hospital with shortness of breath. The diagnoses was acute hypoxic respiratory failure secondary to COPD exacerbation october. We get involved in her care for abnormal cardiac enzymes. On follow-up with her today, October 152018, she denies any symptoms of chest pain or chest discomfort. She still short of breath but she stated that the shortness of breath is slightly better. She suffered from stroke about 6 months ago but her verbal communication has improved. She continues to be in normal sinus mechanism. Objective - Vital Signs Vital signs: Vital Signs Temp 98 F 10/15/18 07:00 Pulse 78 10/15/18 12:12 Resp 16 10/15/18 07:00 BP 111/77 10/15/18 07:00 Pulse Ox 93 L 10/15/18 07:00 Intake & Output 10/14/18 10/15/18 10/15/18 18:59 06:59 18:59 Intake Total 800 550 994 Output Total 1100 900 400 Balance -300 -350 594 Intake: IV 800 Piperacillin-Tazobactam 3 800 .375 gm In Sodium Chloride 0.9% 100 ml @ 25 mls/hr IVPB Q8HR AGUILA Rx# :[id number] Intake, IV Titration 200 Amount Piperacillin-Tazobactam 3 200 .375 gm In Sodium Chloride 0.9% 100 ml @ 25 mls/hr IVPB Q8HR AGUILA Rx# :[id number] Oral 350 994 Output: Urine 1100 900 400 Uretheral (Vitale) 400 Other: Voiding Method Indwelling Catheter Indwelling Catheter Indwelling Catheter - Constitutional General appearance: Present: no acute distress - Respiratory Respiratory: bilateral: diminished - Cardiovascular Rhythm: regular Heart sounds: normal: S1, S2 - Labs CBC & Chem 7: 10/15/18 06:59 10/15/18 06:59 Labs: Abnormal Lab Results - Last 24 Hours (Table) 10/14/18 10/14/18 10/15/18 Range/Units 16:40 20:49 06:59 WBC 17.6 H (3.8-10.6) k/uL RBC 3.67 L (3.80-5.40) m/uL Hgb 7.9 L (11.4-16.0) gm/dL Hct 26.6 L (34.0-46.0) % MCV 72.4 L (80.0-100.0) fL MCH 21.6 L (25.0-35.0) pg MCHC 29.8 L (31.0-37.0) g/dL RDW 16.5 H (11.5-15.5) % Neutrophils # 16.5 H (1.3-7.7) k/uL Lymphocytes # 0.6 L (1.0-4.8) k/uL Sodium (137-145) mmol/L Chloride (98-107) mmol/L Carbon Dioxide (22-30) mmol/L BUN (7-17) mg/dL Glucose (74-99) mg/dL POC Glucose (mg/dL) 188 H 304 H (75-99) mg/dL 10/15/18 10/15/18 10/15/18 Range/Units 06:59 07:29 11:42 WBC (3.8-10.6) k/uL RBC (3.80-5.40) m/uL Hgb (11.4-16.0) gm/dL Hct (34.0-46.0) % MCV (80.0-100.0) fL MCH (25.0-35.0) pg MCHC (31.0-37.0) g/dL RDW (11.5-15.5) % Neutrophils # (1.3-7.7) k/uL Lymphocytes # (1.0-4.8) k/uL Sodium 136 L (137-145) mmol/L Chloride 97 L (98-107) mmol/L Carbon Dioxide 32 H (22-30) mmol/L BUN 23 H (7-17) mg/dL Glucose 133 H (74-99) mg/dL POC Glucose (mg/dL) 169 H 220 H (75-99) mg/dL Microbiology - Last 24 Hours (Table) 10/12/18 17:14 Blood Culture - Preliminary Blood No Growth after 48 hours Assessment and Plan Assessment: Assessment #1 acute Toxic respiratory failure secondary to COPD exacerbation #2 chronic diastolic congestive heart failure, the patient doesn't seems to be in any acute exacerbation at this point #3 coronary artery disease and status post coronary revascularization #4 peripheral arterial disease and status post peripheral revascularization #5 multiple comorbid conditions Plan #1 the chest x-ray did not show any acute abnormalities #2 I did review the echocardiogram which revealed impaired LV function with EF around 40-45% #3 I would recommend continue the current medical regimen #4 from the cardiovascular standpoint of view, she can be discharged into an extended-care facility Thank you for allowing us participate in her care and will follow-up with the patient on when necessary case.
[2018-10-15 17:08] LABS: Glucose,Whole Blood 139 mg/dL (75-99)
[2018-10-15] MEDS: methylPREDNISolone SOD SUCCI 40 MG/ML 1 ML VIAL IV SCH ×2 (17:43→23:09)
[2018-10-15 20:49] VITALS: RESP 18
[2018-10-15 22:03] LABS: Glucose,Whole Blood 135 mg/dL (75-99)
[2018-10-15] MEDS: ATORVASTATIN 80 MG TAB PO SCH (22:10)
[2018-10-15] MEDS: LATANOPROST 0.005% OPHTH DROPS 2.5 ML BTL LEFT EYE SCH (22:13)
[2018-10-16 07:05] LABS: Glucose,Whole Blood 142 mg/dL (75-99)
[2018-10-16] MEDS: methylPREDNISolone SOD SUCCI 40 MG/ML 1 ML VIAL IV SCH (08:09)
[2018-10-16] MEDS: INSULIN ASPART (NovoLOG) 100 UNIT/ML VIAL SQ SCH ×3 (08:09→12:45)
[2018-10-16] MEDS: CLOPIDOGREL 75 MG TAB PO SCH (08:10)
[2018-10-16] MEDS: FUROSEMIDE 40 MG TAB PO SCH (08:10)
[2018-10-16] MEDS: CYANOCOBALAMIN 500 MCG TAB PO SCH (08:11)
[2018-10-16] MEDS: PARoxetine 20 MG TAB PO SCH (08:12)
[2018-10-16] MEDS: METOPROLOL SUCCINATE (ER) 50 MG TAB.ER.24H PO SCH (08:12)
[2018-10-16] MEDS: ASPIRIN 81 MG PO SCH (08:13)
[2018-10-16] MEDS: PANTOPRAZOLE 40 MG TABLET PO SCH (08:13)
[2018-10-16] MEDS: PRIMIDONE 50 MG TAB PO SCH (08:13)
[2018-10-16] MEDS: POTASSIUM CHLORIDE ER 10 MEQ TAB.ER.PRT PO SCH (08:13)
[2018-10-16] MEDS: LACOSAMIDE 50 MG TABLET PO SCH (08:13)
[2018-10-16] MEDS: FLUDROCORTISONE 0.1 MG TAB PO SCH (08:14)
[2018-10-16] MEDS: RIVASTIGMINE TARTRATE 3 MG PO SCH (08:15)
[2018-10-16] MEDS: PIPERACILLIN-TAZOBACTAM 3.375 GM in SODIUM CHLORIDE 0.9% 100 ML IVPB SCH (08:15)
[2018-10-16] MEDS: SYMBICORT 160-4.5 MCG INHALER INHALATION SCH (08:19)
[2018-10-16] MEDS: IPRATROPIUM-ALBUTEROL 3 ML NEB INHALATION PRN ×3 (08:19→16:12)
[2018-10-16 11:57] LABS: Glucose,Whole Blood 146 mg/dL (75-99)
--- NOTE | 2018-10-16 13:55 | P.DS ---
Providers Date of admission: 10/12/18 16:07 Expected date of discharge: 10/16/18 Attending physician: Yovani Figueredo Consults: 10/13/18 10:41 Consult Physician Routine Consulting Provider: Braulio Mckeon Consult Reason/Comments: elevated BNP- [facility] paperwork in chart Do you want consulting provider notified?: Yes Primary care physician: [facility] Course: Final Diagnoses: 1) COPD with acute exacerbation Current Visit: Yes Status: Acute Code(s): J44.1 - CHRONIC OBSTRUCTIVE PULMONARY DISEASE W (ACUTE) EXACERBATION SNOMED Code(s): 277565403 (2) Acute exacerbation of chronic obstructive airways disease Current Visit: No Status: Acute Code(s): J44.1 - CHRONIC OBSTRUCTIVE PULMONARY DISEASE W (ACUTE) EXACERBATION SNOMED Code(s): 534190624 (3) Elevated troponin Current Visit: No Status: Acute Code(s): R79.89 - OTHER SPECIFIED ABNORMAL FINDINGS OF BLOOD CHEMISTRY SNOMED Code(s): 721040603 (4) History of coronary artery stent placement Current Visit: No Status: Acute Code(s): Z95.5 - PRESENCE OF CORONARY ANGIOPLASTY IMPLANT AND GRAFT SNOMED Code(s): 275578140 (5) History of myocardial infarction Current Visit: No Status: Acute Code(s): I25.2 - OLD MYOCARDIAL INFARCTION SNOMED Code(s): 789478436 (6) Iron deficiency anemia Current Visit: No Status: Acute Code(s): D50.9 - IRON DEFICIENCY ANEMIA, UNSPECIFIED SNOMED Code(s): 58382849 (7) Leukocytosis Current Visit: No Status: Acute Code(s): D72.829 - ELEVATED WHITE BLOOD CELL COUNT, UNSPECIFIED SNOMED Code(s): 775408296 (8) On home oxygen therapy Current Visit: No Status: Acute Code(s): Z99.81 - DEPENDENCE ON SUPPLEMENTAL OXYGEN SNOMED Code(s): 433735208539 (9) Tobacco abuse, in remission Current Visit: No Status: Chronic Code(s): F17.201 - NICOTINE DEPENDENCE, UNSPECIFIED, IN REMISSION SNOMED Code(s): 041582781 (10) Diastolic CHF Current Visit: Yes Status: Acute Code(s): I50.30 - UNSPECIFIED DIASTOLIC (CONGESTIVE) HEART FAILURE SNOMED Code(s): 243447172 (11) H/O: CVA (cerebrovascular accident) Current Visit: Yes Status: Acute Code(s): Z86.73 - PRSNL HX OF TIA (TIA), AND CEREB INFRC W/O RESID DEFICITS SNOMED Code(s): 846686125 (12) Aphasia Current Visit: Yes Status: Acute Code(s): R47.01 - APHASIA SNOMED Code(s): 86726765 Hospital course:This is a 62-year-old female resident of [facility] with history of severe end-stage COPD, chronic hypoxic and hypercapnic respiratory failure, on home oxygen, and home BiPAP, hemorrhagic CVA, chronic congestive heart failure, expressive aphasia related to her CVA, coronary artery disease, hypertension, hyperlipidemia, previous episodes of myocardial infarction, numerous episodes of pneumonia and tracheobronchitis, and GI bleeding. She has had numerous previous admissions for complications related to COPD, CHF, and pneumonias. Patient was transferred from [facility] to the emergency department related to patient descending, maintaining only 80% on BiPAP with initial CO2 of 79. Initial troponin reported as normal with a BNP of 11,000. Afebrile, elevated WBC of 22.8 on admission, down to 20.3. Hemoglobin 7.9, down from 9.3. Patient is a poor historian,due to expressive aphasia. Repeat troponin 0.053. EKG reporting NSR, inversion the precordial leads, lateral ST depression. Repeat ABG reported pH 7.29, pCO2 67 pO2 of 400 bicarb 32.6 .Chest x-ray reporting COPD, suggestive of possible right lower lobe infiltrate. Evaluated by cardiology with recommendations noted. IV antibiotics of Zosyn initiated with nebulized bronchodilators and IV steroids. Denies chest pain, palpitations. 10/14/2018: This is a 62-year-old white female, well-known to me with severe end-stage COPD, BiPAP, hypercapnic respiratory failure. She was in [facility] after her was unable to care for her. She was frequently readmitted with exacerbation of COPD she was noncompliant with her BiPAP and continue to smoke at home. Her was enabling this. She was given a public guardian for being sent to [facility] and seemingly doing well. She is currently listed as a full code, but to my recollection she was a DNR with hospitalization. Public guardian was contacted, however they don't have any paperwork to that effect. Currently Kasandra is close to her baseline. She was found asleep in her room. She was easily aroused. She has significant dysarthria due to her hemorrhagic CVA. She denies any chest pains, pressures, or shortness breath at rest at this time. She has oxygen via nasal cannula currently. She denies any diarrhea or constipation. Indicate she had a bowel movement yesterday. Denies any dysuria. She also has significant history of congestive heart failure and is being followed by cardiology. Their consultation was reviewed today. 10/15/2018: Patient is doing well. She remains on oxygen 4 L/m period she denies any chest pains or pressures. No shortness breath at rest. Staff indicated she's been doing well up BiPAP overnight. Cardiology had seen her and feels that her elevated BNP is chronic and she does not have exacerbation of CHF during this admission. Her overall condition seems quite improved. Due to her dysarthria and hemorrhagic CVA history, she is sometimes difficult to understand. He is tolerating her diet. Denies recent bowel movement the past 24 hours. She has a Vitale catheter in place. 10/16/2018 significant clinical improvement. Cleared by cardiology for discharge. Significant clinical improvement. Patient is being discharged to [facility], in a stable condition with guarded prognosis. Exam General: Alert and oriented 2, no acute distress Cardiovascular: S1S2 is normal, There is a regular rate and rhythm. No murmur, rub or gallop is appreciated. Respiratory: Lungs are coarse with significantly poor air exchange due to her end-stage COPD. Gastrointestinal: Soft, non-distended, non-tender abdomen without masses or organomegaly noted. Bowel sounds are unremarkable. Neurological: CN II-XII intact, . Coordination appears grossly intact. Speech is dysarthric due to her hemorrhagic CVA. The impression and plan of care has been dictated as directed. : I performed a history and examination of this patient, discussed the same with the dictator. I agree with the dictator's note ,documented as a scribe. Any additional findings or plans will be noted. Time taken: 35 minutes Patient Condition at Discharge: Stable Plan - Discharge Summary New Discharge Prescriptions: New Amoxic-Pot Clav 875-125Mg [Augmentin 875-125] 1 tab PO BID 3 Days #6 tab Continue Albuterol Nebulized [Ventolin Nebulized] 2.5 mg INHALATION RT-QID PARoxetine HCL 60 mg PO DAILY Metoprolol Succinate (ER) [Toprol XL] 50 mg PO DAILY Primidone [Mysoline] 50 mg PO TID Atorvastatin [Lipitor] 80 mg PO HS tab Fludrocortisone [Florinef] 0.1 mg PO DAILY tab rOPINIRole HCL [Requip] 1 mg PO DAILY tab Famotidine [Pepcid] 20 mg PO DAILY Aspirin 81 mg PO DAILY #30 chewable Cyanocobalamin (Vitamin B-12) [Vitamin B-12] 4,000 mcg PO DAILY Lacosamide [Vimpat] 50 mg PO BID #6 tablet Budesonide-Formot 160-4.5 Mcg [Symbicort 160-4.5 Mcg Inhaler] 2 puff INHALATION RT-BID puff Sucralfate [Carafate] 1 gm PO AC-TID tab Latanoprost [Xalatan 0.005%] 1 drop LEFT EYE HS Clopidogrel [Plavix] 75 mg PO DAILY Pantoprazole [Protonix] 40 mg PO DAILY Rivastigmine Tartrate [Rivastigmine] 3 mg PO DAILY Potassium Chloride [K-Tab ER] 10 meq PO DAILY Furosemide [Lasix] 40 mg PO DAILY@0800 predniSONE 40 mg PO DAILY ALPRAZolam [Xanax] 0.25 mg PO Q6H PRN #12 tab PRN Reason: Anxiety Discontinued Doxycycline [Vibramycin] 100 mg PO Q12HR Discharge Medication List Albuterol Nebulized [Ventolin Nebulized] 2.5 mg INHALATION RT-QID 12/04/16 [History] PARoxetine HCL 60 mg PO DAILY 03/05/18 [History] Metoprolol Succinate (ER) [Toprol XL] 50 mg PO DAILY 04/16/18 [History] Primidone [Mysoline] 50 mg PO TID 04/16/18 [History] Atorvastatin [Lipitor] 80 mg PO HS tab 04/19/18 [Rx] Fludrocortisone [Florinef] 0.1 mg PO DAILY tab 04/19/18 [Rx] rOPINIRole HCL [Requip] 1 mg PO DAILY tab 04/19/18 [Rx] Famotidine [Pepcid] 20 mg PO DAILY 04/21/18 [History] Aspirin 81 mg PO DAILY #30 chewable 04/27/18 [Rx] Cyanocobalamin (Vitamin B-12) [Vitamin B-12] 4,000 mcg PO DAILY 05/11/18 [History] Lacosamide [Vimpat] 50 mg PO BID #6 tablet 05/29/18 [Rx] Budesonide-Formot 160-4.5 Mcg [Symbicort 160-4.5 Mcg Inhaler] 2 puff INHALATION RT-BID puff 06/12/18 [Rx] Sucralfate [Carafate] 1 gm PO AC-TID tab 06/12/18 [Rx] Clopidogrel [Plavix] 75 mg PO DAILY 07/05/18 [History] Latanoprost [Xalatan 0.005%] 1 drop LEFT EYE HS 07/05/18 [History] Pantoprazole [Protonix] 40 mg PO DAILY 07/05/18 [History] Furosemide [Lasix] 40 mg PO DAILY@0800 10/12/18 [History] Potassium Chloride [K-Tab ER] 10 meq PO DAILY 10/12/18 [History] Rivastigmine Tartrate [Rivastigmine] 3 mg PO DAILY 10/12/18 [History] predniSONE 40 mg PO DAILY 10/12/18 [History] ALPRAZolam [Xanax] 0.25 mg PO Q6H PRN #12 tab 10/16/18 [Rx] Amoxic-Pot Clav 875-125Mg [Augmentin 875-125] 1 tab PO BID 3 Days #6 tab 10/16/18 [Rx] Follow up Appointment(s)/Referral(s): Duarte Figueredo Jr, [Primary Care Provider] - 3 Days [facility], [NON-STAFF] - As Needed Activity/Diet/Wound Care/Special Instructions: [facility] cbc,bmp in 3 days
[2018-10-16 14:51] VITALS: BP 114/68; TEMP 98.1
[2018-10-16 16:16] VITALS: PULSE 68
[2018-10-16 16:51] LABS: Glucose,Whole Blood 169 mg/dL (75-99)
== END 2018-10-16 17:05 | DRG 190 ==
LOC: EC 14:04 → 4SSUR 16:07
PROVIDERS: ADMIT Family Medicine; ATTEND Family Medicine
DX: J44.1 Chronic obstructive pulmonary disease with (acute) exacerbation (principal); J18.9 Pneumonia, unspecified organism; J96.21 Acute and chronic respiratory failure with hypoxia; J96.22 Acute and chronic respiratory failure with hypercapnia; I50.42 Chronic combined systolic (congestive) and diastolic (congestive) heart failure; J44.0 Chronic obstructive pulmonary disease with (acute) lower respiratory infection; K21.9 Gastro-esophageal reflux disease without esophagitis; Z66 Do not resuscitate; D50.9 Iron deficiency anemia, unspecified; E78.5 Hyperlipidemia, unspecified; F17.210 Nicotine dependence, cigarettes, uncomplicated; F32.9 Major depressive disorder, single episode, unspecified; F41.9 Anxiety disorder, unspecified; I11.0 Hypertensive heart disease with heart failure; I25.10 Atherosclerotic heart disease of native coronary artery without angina pectoris; I25.2 Old myocardial infarction; I25.5 Ischemic cardiomyopathy; I27.29 Other secondary pulmonary hypertension; I08.3 Combined rheumatic disorders of mitral, aortic and tricuspid valves; I69.320 Aphasia following cerebral infarction; I69.322 Dysarthria following cerebral infarction; I73.9 Peripheral vascular disease, unspecified; Z79.02 Long term (current) use of antithrombotics/antiplatelets; Z79.51 Long term (current) use of inhaled steroids; Z79.52 Long term (current) use of systemic steroids; Z79.82 Long term (current) use of aspirin; Z79.899 Other long term (current) drug therapy; Z82.49 Family history of ischemic heart disease and other diseases of the circulatory system; Z83.3 Family history of diabetes mellitus; Z91.19 Patient's noncompliance with other medical treatment and regimen; Z99.89 Dependence on other enabling machines and devices; Z95.1 Presence of aortocoronary bypass graft; Z95.5 Presence of coronary angioplasty implant and graft; Z95.820 Peripheral vascular angioplasty status with implants and grafts; Z99.81 Dependence on supplemental oxygen; H40.9 Unspecified glaucoma; K90.0 Celiac disease; R74.8 Abnormal levels of other serum enzymes; Z88.1 Allergy status to other antibiotic agents; Z88.8 Allergy status to other drugs, medicaments and biological substances; Z83.2 Family history of diseases of the blood and blood-forming organs and certain disorders involving the immune mechanism
CPT/HCPCS: 36415; 36600; 71046; 80048; 80053; 82805; 83605; 84484; 85025; 87040; 93005; 93306; 94640; 94660; 94760; 99285